=== PATIENT | male | born 1960 | race Caucasian/White ===

== ENCOUNTER 2023-06-28 10:28 | Inpatient (IN) | payer OTHER, SELFPAY ==
[2023-06-28] VITALS (44 sets, daily range): BP systolic 94–140; BP diastolic 46–107; PULSE 75–141; RESP 17–48; TEMP 36.6–37.7; O2SAT 94–100; BMI 31.0
--- NOTE | ~2023-06-28 | US_ITS ---
EXAMINATION: US right upper quadrant DATE: 06/30/2023 08:58 INDICATION: Cholelithiasis. TECHNIQUE: Multiple grayscale and Doppler ultrasound images of the abdomen were obtained. COMPARISON: CT abdomen and pelvis 06/29/2023 FINDINGS: The visualized portions of the head, body, and tail of the pancreas are normal. The liver i s normal without focal lesion. There is normal flow in main portal vein. The gallbladder is normal in size and contains gallstones. Gallbladder wall thickening is noted. There was no sonographic Roldan sign. The common duct is normal and measures 2 mm. IMPRESSION: 1. Cholelithiasis. Gallbladder wall thickening is likely secondary to interstitial edema. Reviewed, dictated and finalized at location A. CHAIN PULLER IMPRESSION: 1. Cholelithiasis. Gallbladder wall thickening is likely secondary to interstit ial edema.
--- NOTE | ~2023-06-28 | XR_ITS ---
EXAMINATION: XR chest 1V portable INDICATION: Tachycardia and cough TECHNIQUE: Portable AP chest at 1050 hours COMPARISON: None available FINDINGS: There are airspace opacities of the mid lung zones and right lung base. No pleural effusion or pneumothorax. The cardiomediastinal silhouette is normal for technique. IMPRESSION: 1. Airspace opacities of the mid lung zones and right lung base, likely pneumonia. Reviewed, dictated and finalized at location B. RDS ADMINISTRATOR IMPRESSION: 1. Airspace opacities of the mid lung zones and right lung base, likely pneumon ia.
--- NOTE | ~2023-06-28 | CT_ITS ---
EXAMINATION: CT abdomen pelvis w con DATE: 06/29/2023 20:14 INDICATION: Pancytopenia hepatosplenomegaly TECHNIQUE: Computed tomography (CT) of the abdomen and pelvis was performed with intravenous contrast . Automated exposure control and iterative reconstruction technique were employed. The dose-length pr oduct was 754.85 mGy-cm. COMPARISON: None. FINDINGS: Lower thorax: Similar centrilobular opacities, small right pleural effusion, and trace left pleural e ffusion Liver: Mildly enlarged. Biliary/Gallbladder: Cholelithiasis.. Subtle wall thickening/inflammation and mucosal hyperemia. No b ile duct dilation. Pancreas: No mass or duct dilation. Spleen: Normal. Adrenals:No mass. Kidneys: Mild bilateral perinephric stranding. Left upper and lower pole scar. 11 mm indeterminate de nsity left upper pole lesion. Simple right midpole cyst. Scattered bilateral subcentimeter hypodensit ies, too small to characterize but also likely represent cysts. No obstructing calcification. GI tract: No small or large bowel dilation. Surgically absent appendix Mesentery/Peritoneum: No ascites, mass, or free air. Retroperitoneum: No mass. Atherosclerotic abdominal aortic and/or arterial calcifications. Pelvis: Pelvic organs are within normal limits. Soft Tissues: Soft tissues and body wall unremarkable. Bones: No acute osseous finding. IMPRESSION: Mild hepatomegaly. Possible mild gallbladder wall edema/inflammation, with cholelithiasis. Correlate with right upper qu adrant pain and biliary labs. Consider right upper quadrant ultrasound. Indeterminate 11 mm left upper pole renal lesion, recommend timely outpatient MRI or CT without and w ith contrast for further evaluation. Reviewed, dictated and finalized at location K. T DESIGNER IMPRESSION: Mild hepatomegaly. Possible mild gallbladder wall edema/inflammation, with cholelithiasis. Correla te with right upper quadrant pain and biliary labs. Consider right upper quadra nt ultrasound. Indeterminate 11 mm left upper pole renal lesion, recommend timely outpatient M RI or CT without and with contrast for further evaluation.
--- NOTE | ~2023-06-28 | XR_ITS ---
EXAMINATION: XR chest 1V portable DATE: 06/30/2023 13:31 INDICATION: Hypoxia. TECHNIQUE: A single frontal view of the chest was obtained. COMPARISON: Chest single view 06/28/2023, CT abdomen and pelvis 06/29/2023, chest CT 06/28/2023 FINDINGS: There are patchy airspace opacities and nodules in all lung zones, worst in right lower gallo g zone. No pleural effusion or pneumothorax. The heart size is normal. IMPRESSION: 1. Stable diffuse lung disease, consistent with pneumonia. Reviewed, dictated and finalized at location A. MOTIVE DESIGN LAYOUT DRAFTER
--- NOTE | ~2023-06-28 | CT_ITS ---
EXAMINATION: CTA chest PE protocol DATE: 06/28/2023 23:24 INDICATION: tachycardia, elevated d dimer TECHNIQUE: Computed tomography angiography (CTA) of the chest was performed with 100 mL Omnipaque-350 intravenous contrast timed to evaluate the pulmonary arteries. Coronal maximum intensity projection 3D-reconstructions were created by the technologist. The dose-length product (DLP) was 454.52 mGy-cm. Automated exposure control and iterative reconstruction technique were employed. COMPARISON: X-ray chest, same date. FINDINGS: Lung parenchyma and airways: Considerable motion artifact. Emphysematous change. Peripheral reticulat ion. Peribronchovascular and peripheral areas of groundglass and consolidative opacities, many of whi ch are nodular/acinar in appearance, in all lobes, much more pronounced in the right upper and right lower lobes. The airways are clear. Pleura: Trace left and small right pleural fluid collections. Thoracic inlet, axillae and chest wall: Unremarkable. Thoracic aorta: Normal. Mediastinum: Enlarged right hilar and mediastinal lymph nodes. Calcified subcarinal and hilar lymph n odes. Heart and pericardium: Mild enlargement. Coronary artery calcifications: Mild. Upper abdomen: Cholelithiasis, without inflammatory changes. Bones: No acute osseous finding. Pulmonary arteries: Study quality: Considerable motion artifact limits evaluation of the subsegmental and segmental pulmonary arteries. No central or interlobar pulmonary emboli detected. IMPRESSION: Limited evaluation of the segmental and subsegmental pulmonary arteries. No CT evidence of acute cent ral or interlobar pulmonary embolus. Pulmonary opacities likely represent infectious airways disease, most likely bronchopneumonia, althou gh endobronchial spread of mycobacteria can appear similarly. A component of aspiration could be pres ent in the appropriate clinical context. Small right and trace left pleural effusions. Right hilar and mediastinal lymphadenopathy. Reviewed, dictated and finalized at location K. OM HOME INSTALLER IMPRESSION: Limited evaluation of the segmental and subsegmental pulmonary arteries. No CT evidence of acute central or interlobar pulmonary embolus. Pulmonary opacities likely represent infectious airways disease, most likely br onchopneumonia, although endobronchial spread of mycobacteria can appear simila rly. A component of aspiration could be present in the appropriate clinical con text. Small right and trace left pleural effusions. Right hilar and mediastinal lymphadenopathy.
--- NOTE | ~2023-06-28 | US_ITS ---
EXAMINATION: US venous doppler [facility] DATE: 06/28/2023 20:55 INDICATION: bilateral lower extremity edema . TECHNIQUE: Grayscale images without and with compression and Doppler images of the bilateral lower ex tremity veins were obtained. COMPARISON: None FINDINGS: The right common femoral vein, profunda (deep) femoral vein, femoral vein, popliteal vein, peroneal v ein, posterior tibial veins, gastrocnemius vein, and greater saphenous vein are patent. The left common femoral vein, profunda (deep) femoral vein, femoral vein, popliteal vein, peroneal v ein, posterior tibial veins, gastrocnemius vein, and greater saphenous vein are patent. IMPRESSION: Patent bilateral lower extremity veins. No evidence of deep venous thrombosis. Reviewed, dictated and finalized at location K. K MAKING MACHINE OPERATOR
--- NOTE | ~2023-06-28 | US_ITS ---
EXAMINATION: US renal BI DATE: 06/30/2023 08:58 INDICATION: Kidney mass. TECHNIQUE: Multiple ultrasound grayscale images of the kidneys were obtained. COMPARISON: CT abdomen and pelvis 06/29/2023, chest CT 06/28/2023. FINDINGS: The right kidney measures 12.2 x 5.1 x 5.4 cm. The left kidney measures 12.1 x 6.7 x 5.3 cm. The kidn eys demonstrate normal parenchymal echogenicity. There are cysts in the kidneys measuring up to 15 mm on the right. There is no hydronephrosis. The bladder is normal. IMPRESSION: 1. Normal kidney sizes. No hydronephrosis. 2. Comparison of multiple CTs demonstrates nonenhancement of the 1.1 cm mass in left kidney upper carola e described on 06/29/2023, consistent with a hemorrhagic cyst. Reviewed, dictated and finalized at location A. ATORY GAME HUNTER IMPRESSION: 1. Normal kidney sizes. No hydronephrosis. 2. Comparison of multiple CTs demonstrates nonenhancement of the 1.1 cm mass in left kidney upper pole described on 06/29/2023, consistent with a hemorrhagic c yst.
--- NOTE | 2023-06-28 10:32 | ECG_ITS ---
Measurements Intervals [place] Rate: 142 P: VT: 0 QRS: -45 QRSD: 104 T: 48 QT: 301 QTc: 463 Interpretive Statements ATRIAL FIBRILLATION WITH RAPID VENTRICULAR RESPONSE INCOMPLETE RIGHT BUNDLE BRANCH BLOCK [90+ ms QRS DURATION, TERMINAL R IN V1/V2, 40+ ms S IN I/aVL/V4/V5/V6] LEFT ANTERIOR FASCICULAR BLOCK [QRS AXIS <= -45, QR IN I, RS IN II] POOR R-WAVE PROGRESSION ABNORMAL ECG NO PREVIOUS ECG AVAILABLE FOR COMPARISON Electronically Signed On 06-28-2023 18:24:03 PROCESS TRAINER by Eduardo Nielson M.D.
--- NOTE | 2023-06-28 11:03 | ED.ARRPALP ---
HPI - Arrhythmia/Palpitations General Chief Complaint: Arrhythmia/Palpitations Stated Complaint: FAST hr Time Seen by Provider: 06/28/23 10:42 History of Present Illness HPI narrative: 63-year-old male presents emergency department for evaluation of feeling poorly since Wednesday. Patient states he has no chest pain but does have chest pain with coughing. Patient presented to urgent care for evaluation and was found to be AFib with RVR, this is new onset. Patient presented to the emergency department from urgent care by private transport. Upon arrival to the emergency department patient is tired appearing and has a heart rate 140-160. Patient denies any prior history of PE DVT. Patient denies any prior history of MT, patient denies hypertension high cholesterol or diabetes. Patient does have arthritis and does take leflunomide and Vicodin. Related Data Home Medications Medication Instructions Recorded Confirmed hydrocodone 7.5 mg-acetaminophen 1 tablet PO Q6H PRN Pain 06/28/23 06/28/23 325 mg tablet leflunomide 10 mg tablet 10 mg PO DAILY 06/28/23 06/28/23 Allergies Allergy/AdvReac Type Severity Reaction Status Date / Time No Known Allergies Allergy Mild Verified 06/28/23 08:53 Review of Systems Review of Systems: All systems reviewed & are unremarkable except as noted in HPI and below PMFSH Past Medical History Medical History BMI 33.0-33.9,adult Family History Family History Father Family history of malignant neoplasm Family history of diabetes mellitus in first degree relative Grandparent Family history of coronary artery disease Social History Social History Smoking status: Former smoker Second hand tobacco smoke exposure: No Alcohol intake: never Substance use: never Substance use type: does not use Do You Feel Safe in your Home?: Yes Lack of Transportation: No Lack of Food: Never True Current Housing: I Have Housing Concerned About Future Housing: No Difficulty Paying Gas/Electric Bills: No Difficulty Paying for Meds: No Currently Unemployed: No Education: High School Diploma/GED Difficulty w/ Childcare or Family Care: No Spiritual care concerns: No Exam Narrative: APPEARANCE: Ill-appearing HEAD: normocephalic, atraumatic. EYES: PERRLA/EOMI, conjunctivae clear. NOSE: Normal no drainage EARS:TMS clear with good light reflex. THROAT: Pharynx clear, no exudate. NECK: Supple. No adenopathy, no masses. RESPIRATORY: Increased respiratory rate CARDIOVASCULAR: AFib with RVR ABDOMINAL: Soft, nontender, nondistended, normal bowel sounds MUSCULOSKELETAL: Moves all extremities. Strength/ROM intact, No edema, No calf tenderness. NEURO: Alert. Cranial nerves II through XII intact. Grossly intact SKIN: Warm, dry. Normal Color Course Course Emergency Course: Patient was admitted for AFib with RVR, elevated troponin and influenza a Vital Signs Vital signs: Vital Signs Temperature 98.3 F 06/28/23 10:46 Pulse Rate 140 H 06/28/23 10:46 Respiratory Rate 40 H 06/28/23 10:46 Blood Pressure 123/94 H 06/28/23 10:46 Pulse Oximetry 96 06/28/23 10:46 Temperature 98.3 F 06/28/23 10:46 Pulse Rate 95 06/28/23 18:01 Respiratory Rate 36 H 06/28/23 18:01 Blood Pressure 115/71 06/28/23 18:01 Pulse Oximetry 99 06/28/23 18:01 Oxygen Delivery Nasal Cannula 06/28/23 12:00 Oxygen Flow Rate 2 06/28/23 12:00 MDM - Arrhythmia/Palpitations MDM Narrative Medical decision making narrative: [age] old male present to the emergency department for evaluation of new onset AFib with RVR. Upon arrival emergency department patient's heart rate was in the 140s. Patient was started Cardizem drip and prior to starting Cardizem infusion patient did convert back to normal sinus rhythm.
[2023-06-28 11:04] LABS: Basophils Percent Auto 0.3 % (0.2-1.2); Hematocrit 29.4 % (42.0-52.0); Hemoglobin 9.6 g/dL (14.0-18.0); Immature Granulocyte Absolute 0.02 K/mm3 (0.00-0.031); Immature Granulocyte Percent A 0.6 % (0-0.5); Lymphocytes Percent Auto 22.2 % (18.3-44.2); Mean Corpuscular HGB Conc 32.7 g/dl (32-36); Mean Corpuscular Hemoglobin 29.6 pg (26-34); Mean Corpuscular Volume 90.7 fl (80-100); Monocytes Absolute Auto 0.2 K/mm3 (0.1-0.6); Monocytes Percent Auto 5.3 % (2.6-8.5); Neutrophils Absolute Auto 2.6 K/mm3 (1.3-6.7); Neutrophils Percent Auto 71.6 % (45.5-73.1); Platelet Count Result 67 k/mm3 (150-375); Red Blood Count 3.24 M/mm3 (4.6-6.20); Red Cell Distribution Width 18.5 % (11.5-14.5); White Blood Count 3.6 K/mm3 (4.5-10.0)
[2023-06-28 11:08] LABS: Alanine Aminotransferase 19 U/L (6-50); Albumin Level 3.8 g/dL (3.5-5.1); Alkaline Phosphatase 109 U/L (38-126); Anion Gap 7 mmol/L (8-16); Aspartate Amino Transferase 37 U/L (17-59); Bilirubin,Total 0.9 mg/dL (0.2-1.3); Blood Urea Nitrogen 15 mg/dL (9-20); Calcium 8.8 mg/dL (8.4-10.2); Carbon Dioxide 22 mmol/L (22-30); Chloride 104 mmol/L (98-107); Estimated CRCL calculation 103 ml/min; Estimated Glomerular Filt Rate > 60; Glucose 106 mg/dL (65-110); Lipase 57 U/L (23-300); Potassium 3.3 mmol/L (3.4-5.0); Sodium 133 mmol/L (137-145)
[2023-06-28] MEDS: dilTIAZem 100 MG/100 ML 100 MG/100 ML BAG IV CONT (11:11)
[2023-06-28] MEDS: dilTIAZem HCl INJ 25 MG/5 ML VIAL 10 MG IV PUSH (11:11)
[2023-06-28 11:14] LABS: INR 1.1
[2023-06-28 11:15] LABS: Partial Thromboplastin Time 35.8 SECONDS (22.3-36.8)
[2023-06-28] MEDS: ASPIRIN 81 MG CHEWABLE TABLET 324 MG PO (11:16)
[2023-06-28 11:21] LABS: Platelet Estimate Decreased (Adequate); Schistocytes None Seen (NORMAL)
[2023-06-28 11:22] LABS: Tear Drop Cells 1+ (NORMAL)
[2023-06-28 11:32] LABS: Troponin I 0.085 ng/mL (0.000-0.034)
[2023-06-28] MEDS: POTASSIUM CHLORIDE 20 MEQ PACKET (FOR LIQUID) 40 MEQ PO (11:45)
[2023-06-28 11:52] LABS: Influenza A QL RT-PCR Positive (Negative); Influenza B QL RT-PCR Negative (Negative); RSV RNA, RT-PCR Negative (Negative); SARS-CoV-2 RNA PCR Negative (Negative)
[2023-06-28 11:53] LABS: Magnesium 1.9 mg/dL (1.6-2.3)
[2023-06-28] MEDS: LEVALBUTEROL NEB 1.25 MG/3 ML INHALATION ×2 (12:35→19:36)
--- NOTE | 2023-06-28 12:51 | ECG_ITS ---
Measurements Intervals [place] Rate: 86 P: 61 NC: 165 QRS: -40 QRSD: 97 T: 28 QT: 375 QTc: 451 Interpretive Statements SINUS RHYTHM WITH PACS LEFT AXIS DEVIATION POOR R-WAVE PROGRESSION NONSPECIFIC T-WAVE ABNORMALITY ABNORMAL ECG COMPARED TO ECG 06/28/2023 10:43:33 SINUS RHYTHM REPLACES ATRIAL FIBRILLATION Electronically Signed On 06-28-2023 18:30:58 MAPPING ANALYST by Eduardo Nielson M.D.
[2023-06-28 13:18] LABS: NT Pro B Type Natriuretic Pept 10100 pg/mL (19.9-100)
[2023-06-28 14:03] LABS: Troponin I 0.069 ng/mL (0.000-0.034)
--- NOTE | 2023-06-28 14:29 | PC.NURSE ---
pt takes 3 ibuprofen every morning but is unsure dosage for med reconciliation. pt also takes vitamin b12, E, and C daily
--- NOTE | 2023-06-28 15:21 | PM.IMHP ---
H&P: HPI History of Present Illness Date/Time: 06/28/23 16:45 Chief Complaint: Rapid heart rate. Narrative: This is a very pleasant 63-year-old male with rheumatoid arthritis on leflunomide who presented to the emergency department from Dr. Britt is office for evaluation of a rapid heart rate. The patient provides the following history. He has not been feeling well since Wednesday with generalized malaise, fatigue, nonproductive cough, body aches, and loose stools. He made appointment with his doctor today due to ongoing symptoms at which time he was found to be in atrial fibrillation with rapid ventricular response which is a new diagnosis for him. He has some mild chest discomfort with coughing but he has not had exertional chest pain or pleuritic pain. He has no sensations of racing heart, palpitations, or fluttering. On arrival to the emergency department his heart rate was between 140 to 160. He was given a diltiazem bolus and was ultimately started on a diltiazem drip but has since converted back to a normal sinus rhythm. Labs were significant for a WBC count of 3.6, RBC count 3.24, hemoglobin 9.6, hematocrit 29.4%, platelets 67, D-dimer 3.78, sodium 133, potassium 3.3, BUN 15, creatinine 0.70, lactic acid 1.6, proBNP 32288, troponin 0.085. He tested positive for influenza A. Chest x-ray showed airspace opacities of the mid lung zones and right lung base, likely pneumonia. Initial EKG showed atrial fibrillation with rapid ventricular response, incomplete right bundle-branch block, and left anterior fascicular block with poor R-wave progression. He was given a dose of azithromycin and ceftriaxone and he is being admitted in this setting for treatment of pneumonia, influenza, and workup of new onset atrial fibrillation. Review of Systems Review of Systems: Twelve systems were reviewed. Regarding his anemia, he has been told that he was anemic in the past. He is not on any iron supplementation. He has not noticed any blood in the stool or dark stools. Weight has remained stable. No personal or family history of blood dyscrasia. Except as documented, all other systems were reviewed and are negative. [facility] Past Medical History Medical History (Updated 06/28/23 @ 23:04 by Jaclyn Gomez PA-C) Chronic pain syndrome Related to RA. Immunocompromised state due to drug therapy Rheumatoid arthritis Surgical History Surgical History (Updated 06/28/23 @ 22:59 by Jaclyn Gomez PA-C) History of appendectomy Family History Family History Father Family history of malignant neoplasm Family history of diabetes mellitus in first degree relative Colon cancer Grandparent Family history of coronary artery disease Mother Acute myocardial infarction History of blood clots Grandparent Acute myocardial infarction Mother No problems noted. Sibling History of blood clots Sibling History of blood clots Sibling History of blood clots Social History Social History (Updated 06/28/23 @ 23:00 by Jaclyn Gomez PA-C) Social History: Surrogate medical decision maker: Isaura Palacios, spouse. Code status: Full code. Smoking packs per day: 2 Smoking cigarettes per day: 40.0 Years smoked: 35 Smoking pack-years: 70.00 Smoking status: Former smoker Second hand tobacco smoke exposure: No Alcohol intake: never Substance use: never Substance use type: does not use Do You Feel Safe in your Home?: Yes Lack of Transportation: No Lack of Food: Never True Current Housing: I Have Housing Concerned About Future Housing: No Difficulty Paying Gas/Electric Bills: No Difficulty Paying for Meds: No Currently Unemployed: No Education: High School Diploma/GED Difficulty w/ Childcare or Family Care: No Additional living arrangements comments: Lives with spouse and family in [place]. Additional occupation/education comments: [employer]
--- NOTE | 2023-06-28 16:55 | ECG_ITS ---
Measurements Intervals [place] Rate: 97 P: 37 WV: 169 QRS: -53 QRSD: 98 T: 35 QT: 349 QTc: 443 Interpretive Statements SINUS RHYTHM WITH OCCASIONAL SUPRAVENTRICULAR PREMATURE COMPLEXES NONSPECIFIC T-WAVE ABNORMALITY LEFT ANTERIOR FASCICULAR BLOCK [QRS AXIS <= -45, QR IN I, RS IN II] POOR R-WAVE PROGRESSION COMPARED TO ECG 06/28/2023 13:01:54 NO SIGNIFICANT DIFFERENCE Electronically Signed On 06-28-2023 18:41:42 STORAGE SPECIALIST by Eduardo Nielson M.D.
[2023-06-28 17:22] LABS: Troponin I 0.058 ng/mL (0.000-0.034)
--- NOTE | 2023-06-28 18:27 | ADMGEN ---
Addendum entered by Kaela Pettit RN 06/30/23 15:55: This patient, Taiwo Palacios Sr., was admitted to Bed 213. Patient/family oriented to hospital policies and general routines including ID bracelet, bed and alarms, visiting hours, pain management, procedures, bathroom and other care routines, personal items, smoking policy, room service/diet, and visiting hours. Information on how to activate the Rapid Response Team has been discussed. Patient/Family are encouraged to report perceived risks to care and to ask questions if they do not understand what they are told or what they should do. Original Note: This patient, Taiwo Palacios Sr., was admitted to Virtual Bed IMU-2. Patient/family oriented to hospital policies and general routines including ID bracelet, bed and alarms, visiting hours, pain management, procedures, bathroom and other care routines, personal items, smoking policy, room service/diet, and visiting hours. Information on how to activate the Rapid Response Team has been discussed. Patient/Family are encouraged to report perceived risks to care and to ask questions if they do not understand what they are told or what they should do.
[2023-06-28 19:52] LABS: Immature Reticulocyte Fraction 6.3 % (3.0-15.9); Reticulocyte Hemoglobin Conten 26.8 pg (28.2-35.7); Reticulocyte Percent 0.84 % (0.7-4.3); Reticulocytes Absolute 0.02 M/mm3 (0.02-0.1)
[2023-06-28 20:00] LABS: Lactic Acid Reflex 1.6 mmol/L (0.7-2.0)
[2023-06-28 20:03] LABS: CRP 8.4 mg/dL (<1.0)
[2023-06-28 20:21] LABS: Iron 38 ug/dL (49-181)
[2023-06-28 20:30] LABS: D Dimer 3.78 ug/mL (<0.48); Percent Iron Saturation 18 % (20-50)
[2023-06-28] MEDS: VANCOMYCIN 1,250 MG/NS 250 ML 1,250 MG/250 ML BAG 166.67 MG IVPB ×2 (21:11→22:05)
[2023-06-28] MEDS: AZITHROMYCIN 500 MG/NS 250 ML 500 MG/250 ML BAG 250 MG IVPB (21:12)
[2023-06-28] MEDS: FUROSEMIDE INJ 40 MG/4 ML VIAL 20 MG IV PUSH (21:12)
[2023-06-28] MEDS: cefTRIAXone 2 GM/NS 100 ML 2 GM/100 ML BAG IVPB (21:13)
[2023-06-28 21:26] LABS: Folic Acid 14.6 ng/mL (2.76->20); Vitamin B12 > 1000.0 pg/mL (239-931)
[2023-06-28 23:14] LABS: Anion Gap 9 mmol/L (8-16); Blood Urea Nitrogen 18 mg/dL (9-20); Calcium 8.7 mg/dL (8.4-10.2); Carbon Dioxide 19 mmol/L (22-30); Chloride 104 mmol/L (98-107); Estimated CRCL calculation 120 ml/min; Estimated Glomerular Filt Rate > 60; Glucose 101 mg/dL (65-110); Potassium 3.3 mmol/L (3.4-5.0); Sodium 132 mmol/L (137-145)
[2023-06-28] MEDS: OSELTAMIVIR PHOSPHATE 75 MG CAPSULE PO (23:59)
[2023-06-29] VITALS (28 sets, daily range): BP systolic 108–141; BP diastolic 61–77; PULSE 73–110; RESP 18–44; TEMP 36.6–37.4; O2SAT 92–99
--- NOTE | 2023-06-29 | ECHO_ITS ---
Patient Info Name: Taiwo Palacios Age: 63 years : 1960 Gender: Male Ht: 67 in Wt: 220 lbs BSA: 2.21 m2 HR: 87 bpm BP: 108 / 57 mmHg Technical Quality: Fair Exam Date: 06/29/2023 9:51 AM Exam Location: Echo Lab Patient Status: Outpatient Admit Date: 06/28/2023 Staff Ordering Physician: Jaclyn Gomez PA-C Relief Mate: Judi James RDCS Attending Provider: Cecile Rodriges MD Referring Physician: Patricia REYES; Exam Type: CA echo dop color flow w con Study Info Indications - AFIB/RVR, Elevated tropnin Complete two-dimensional, color flow and Doppler transthoracic echocardiogram is performed with contrast to opacify the left ventricle and to improve the deliniation of the left ventricle endocardial borders. Contrast/Agitated Saline Contrast/Ag. Saline: Definity Amount: 2.00 ml Administered By: Judi James RDCS Existing IV Access: Yes IV Access Condition: patent with no signs of infiltration Summary 1. Definity contrast administered improved wall motion interpretation. 2. Left ventricular chamber dimension is severely enlarged. 3. Left ventricular systolic function is severely globally reduced, estimated at 30-35%. 4. The left ventricular diastolic function is abnormal. 5. E/e' 13 is mildly elevated. 6. Left atrial chamber dimension is severely enlarged. 7. There is mild mitral valve regurgitation. 8. There is trace tricuspid valve regurgitation. 9. No pulmonary hypertension, estimated pulmonary arterial systolic pressure is 28 mmHg. Left Ventricle E/e' 13 is mildly elevated. Definity contrast administered improved wall motion interpretation. Left ventricular chamber dimension is severely enlarged. Left ventricular systolic function is severely globally reduced, estimated at 30-35%. The left ventricular diastolic function is abnormal. Right Ventricle Right ventricular systolic function is normal and with normal TAPSE 1.9 cm. Right ventricular chamber dimension is normal. Left Atria Left atrial chamber dimension is severely enlarged. Right Atria Right atrial chamber dimension is normal. Aortic Valve The aortic valve is trileaflet. There is no aortic valve stenosis. There is no aortic valve regurgitation. Pulmonic Valve There is no pulmonic regurgitation. Mitral Valve There is no mitral valve stenosis. There is mild mitral valve regurgitation. Tricuspid Valve There is trace tricuspid valve regurgitation. No pulmonary hypertension, estimated pulmonary arterial systolic pressure is 28 mmHg. Pericardium/Pleural There is no pericardial effusion. Inferior Vena Cava Normal inferior vena cava with >50% collapse upon inspiration consistent with normal right atrial pressure, 5 mmHg. Aorta The aortic root size at the sinus of Valsalva is normal. Left Ventricular Outflow Tract Name Value Normal LVOT 2D LVOT Diameter 2.13 cm LVOT Doppler LVOT Peak Gradient 4 mmHg LVOT Mean Gradient 2 mmHg LVOT VTI 13.69 cm LVOT VTI/AV VTI Ratio 0.76 LVOT Stroke Volume 48.97 ml
[2023-06-29] MEDS: LEVALBUTEROL NEB 1.25 MG/3 ML INHALATION ×5 (01:19→23:34)
[2023-06-29] MEDS: POTASSIUM CHLORIDE 20 MEQ ER TABLET 40 MEQ PO ×2 (02:56→14:29)
[2023-06-29 05:05] LABS: Estimated CRCL calculation 120 ml/min; Estimated Glomerular Filt Rate > 60
[2023-06-29] MEDS: ASPIRIN 81 MG CHEWABLE TABLET PO (08:36)
[2023-06-29] MEDS: OSELTAMIVIR PHOSPHATE 75 MG CAPSULE PO ×2 (08:36→21:59)
[2023-06-29] MEDS: VANCOMYCIN 1,500 MG/NS 500 ML 1,500 MG/500 ML BAG 250 MG IVPB ×2 (08:37→21:59)
--- NOTE | 2023-06-29 08:40 | PM.IMPN ---
Progress Note: A&P Assessment and Plan (1) Atrial fibrillation with rapid ventricular response: Code(s): I48.91 - Unspecified atrial fibrillation Status: Acute (2) Influenza A: Code(s): J10.1 - Influenza due to other identified influenza virus with other respiratory manifestations Status: Acute (3) Pneumonia: Code(s): J18.9 - Pneumonia, unspecified organism Status: Acute (4) Hypoxia: Code(s): R09.02 - Hypoxemia Status: Acute (5) Pancytopenia: Code(s): D61.818 - Other pancytopenia Status: Acute (6) Elevated troponin: Code(s): R79.89 - Other specified abnormal findings of blood chemistry Status: Acute (7) Rheumatoid arthritis: Qualifiers: Rheumatoid arthritis location: unspecified site Rheumatoid factor presence: with rheumatoid factor Qualified Code(s): M05.9 - Rheumatoid arthritis with rheumatoid factor, unspecified Code(s): M06.9 - Rheumatoid arthritis, unspecified Status: Acute (8) Immunocompromised state due to drug therapy: Code(s): D84.821 - Immunodeficiency due to drugs; Z79.899 - Other nursing home (current) drug therapy Status: Acute Plan A 63-year-old male with rheumatoid arthritis on leflunomide presented to the ED PCP's office rapid heart rate. He had not been feeling well since Wednesday with generalized malaise fatigue nonproductive cough body aches and loose stool. He was found to be in AFib with RVR which is a new diagnosis for him he also reports mild chest discomfort with coughing but has not had any exertional chest pain or pleuritic pain. On arrival to the ED is heart rate was anywhere between 140-160. He was given a bolus of diltiazem and was ultimately started on diltiazem drip. Since then however he had converted back to normal sinus rhythm. ED evaluation showed WBC count of 3.6 RBC count of 3.24 hemoglobin of 9.6 platelet of 67 D-dimer of 3.78 potassium is low at 3.3 lactate normal proBNP 10,000 troponin was mildly elevated at 0.085. He tested positive for influenza A. Chest x-ray showed airspace opacities of the mid lung zones and right lung base likely pneumonia. Initial EKG showed atrial fibrillation with rapid ventricular response incomplete right bundle branch block and left anterior fascicular block with poor R-wave progression. Has been started on azithromycin ceftriaxone was treated for pneumonia influenza and workup for new onset atrial fibrillation. Serial troponin 0.085-0.069 remains flat. Venous duplex with patent bilateral lower extremity veins no evidence of DVT. Sputum culture to be obtained Legionella pneumococcal and mycoplasma MRSA swab pending. Hold leflunomide for now. He was also mildly hypoxic in the ED requiring oxygen supplementation via nasal cannula. CTA ordered because of elevated D-dimer showed no evidence of acute central PE, pulmonary opacities likely represent infectious airway disease most likely bronchopneumonia although endobronchial spread of mycobacteria can appear similarly. A component of aspiration could be represent the appropriate clinical context. Right hilar and mediastinal lymphadenopathy echo has been ordered and pending. He has pancytopenia likely related (might possibly worsened due to viral illness. Hematology has been consulted. Iron studies B12 and folate have been ordered. Stool for occult blood has been ordered. Ferritin came back elevated at 1320 with low TIBC and% desaturation CRP elevated at 8.4 TSH normal procalcitonin is 1. Replace potassium and magnesium Add Mucinex and bronchodilator vancomycin can be discontinued if MRSA swab is negative will continue on azithromycin and ceftriaxone DVT prophylaxis SCDs Influenza A started on Tamiflu With regard atrial fibrillation with the new onset his story back to sinus rhythm likely due to underlying infectious process. His chads Vasc score is low at 0. Will continue on aspirin. Not on any rate control medica
[2023-06-29 09:23] LABS: Basophils Percent Auto 0.4 % (0.2-1.2); Hematocrit 23.6 % (42.0-52.0); Hemoglobin 7.8 g/dL (14.0-18.0); Immature Granulocyte Absolute 0.01 K/mm3 (0.00-0.031); Immature Granulocyte Percent A 0.4 % (0-0.5); Immature Platelet Fraction Pct 7.7 % (0.9-11.2); Lymphocytes Absolute Auto 0.75 K/mm3 (0.9-3.2); Lymphocytes Percent Auto 31.6 % (18.3-44.2); Mean Corpuscular HGB Conc 33.1 g/dl (32-36); Mean Corpuscular Hemoglobin 29.7 pg (26-34); Mean Corpuscular Volume 89.7 fl (80-100); Monocytes Absolute Auto 0.1 K/mm3 (0.1-0.6); Monocytes Percent Auto 5.9 % (2.6-8.5); Neutrophils Absolute Auto 1.5 K/mm3 (1.3-6.7); Neutrophils Percent Auto 61.7 % (45.5-73.1); Platelet Count Result 54 k/mm3 (150-375); Red Blood Count 2.63 M/mm3 (4.6-6.20); Red Cell Distribution Width 18.8 % (11.5-14.5); White Blood Count 2.4 K/mm3 (4.5-10.0)
[2023-06-29 09:33] LABS: Alanine Aminotransferase 17 U/L (6-50); Albumin Level 3.1 g/dL (3.5-5.1); Alkaline Phosphatase 78 U/L (38-126); Anion Gap 7 mmol/L (8-16); Aspartate Amino Transferase 36 U/L (17-59); Bilirubin,Total 0.6 mg/dL (0.2-1.3); Blood Urea Nitrogen 14 mg/dL (9-20); Calcium 8.3 mg/dL (8.4-10.2); Carbon Dioxide 20 mmol/L (22-30); Chloride 106 mmol/L (98-107); Estimated CRCL calculation 120 ml/min; Estimated Glomerular Filt Rate > 60; Glucose 103 mg/dL (65-110); Magnesium 1.8 mg/dL (1.6-2.3); Potassium 3.3 mmol/L (3.4-5.0); Sodium 133 mmol/L (137-145)
--- NOTE | 2023-06-29 09:35 | PDONCCN ---
HPI - Date of Consult Date/Time: 06/29/23 18:17 <Kaleb Tomlin - 06/29/23 18:20> 06/29/23 09:35 <Stefania Nguyen - 06/29/23 09:44> Requesting Physician: Cecile Rodriges MD <Kaleb Tomlin - 06/29/23 18:20> Cecile Rodriges MD <Stefania Nguyen - 06/29/23 09:44> Primary Care Provider: Yaya Britt MD <Kaleb Tomlin - 06/29/23 18:20> Yaya Britt MD <Stefania Nguyen - 06/29/23 09:44> - Consult Narrative Reason for consult: Pancytopenia <Stefania Nguyen - 06/29/23 09:44> Narrative: Taiwo Palacios Sr. is a 63 year old male <Kaleb Tomlin - 06/29/23 18:20> Taiwo Palacios Sr. is a 63 year old male with a past medical history of rheumatoid arthritis. He is taking Leflunomide for the last [address] Nataly Seymour at [facility]. He has been admitted for rapid HR from his PCP office. He reports feeling fatigued, cough, and body aches. He has tested + for Flu A. He also has underlying PNA. He is being treated with Azithro, Ceftriaxone, and Vanco for infection and immunosuppression. He reports knowledge of anemia. He does not take iron supplements. He has never had a colonoscopy. He gets blood work by his [employer] every 3 months. I am unable to see those results from previous studies to compare. 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 He reports a past smoking history of 2 pack/day and quit in 2017. He reports fatigue, cough, and shortness of breath. Labs today are notable for WBC 3.6, Hgb 9.6, Hct 29, Plt 67,000. Iron 38, % sat 18, Ferritin elevated at 1329 and B12>1000. <Stefania Nguyen - 06/29/23 09:44> Review of Systems - Review of Systems All systems reviewed & are unremarkable except as noted in HPI and bel <Stefania Nguyen 06/29/23 09:44> [facility] Medical History: Medical History (Last Updated 06/28/23 @ 23:03 by Jaclyn Gomez PA-C) Chronic pain syndrome Related to RA. Immunocompromised state due to drug therapy Rheumatoid arthritis <Kaleb Tomlin. - 06/29/23 18:20> Medical History (Last Updated 06/28/23 @ 23:03 by Jaclyn Gomez PA-C) Chronic pain syndrome Related to RA. Immunocompromised state due to drug therapy Rheumatoid arthritis <Earl Nguyenne - 06/29/23 09:44> Surgical History: Surgical History (Last Updated 06/28/23 @ 22:59 by Jaclyn Gomez PA-C) History of appendectomy <Kaleb Tomlin. - 06/29/23 18:20> Surgical History (Last Updated 06/28/23 @ 22:59 by Jaclyn Gomez PA-C) History of appendectomy <WoodrowStefania sanon - 06/29/23 09:44> Family History: Family History (Last Reviewed 06/28/23 @ 22:59 by Jaclyn Gomez PA-C) Father Family history of malignant neoplasm Family history of diabetes mellitus in first degree relative Colon cancer Grandparent Family history of coronary artery disease Mother Acute myocardial infarction History of blood clots Grandparent Acute myocardial infarction Mother No problems noted. Sibling History of blood clots Sibling History of blood clots Sibling History of blood clots <Kaleb Tomlin. - 06/29/23 18:20> Family History (Last Reviewed 06/28/23 @ 22:59 by Jaclyn Gomez PA-C) Father Family history of malignant neoplasm Family history of diabetes mellitus in first degree relative Colon cancer Grandparent Family history of coronary artery disease Mother Acute myocardial infarction History of blood clots Grandparent Acute myocardial infarction Mother No problems noted. Sibling History of blood clots Sibling History of blood clots Sibling History of blood clots <Earl Nguyenne - 06/29/23 09:44> - Social History Social History: Social History (Last Updated 06/28/23 @ 23:00 by Jaclyn Gomez PA-C) Alcohol Use: Alcohol intake: never Substance Use: Substance use: never Substance use type: does
[2023-06-29 10:03] LABS: Platelet Estimate Decreased (Adequate)
[2023-06-29 10:04] LABS: Hypochromasia 1+ (NORMAL); Schistocytes Rare (NORMAL)
[2023-06-29] MEDS: PERFLUTREN LIPID MICROSPHERES 1.5 ML VIAL DILUTED TO 10 ML TOTAL VOLUME IV PUSH (10:15)
[2023-06-29 10:17] LABS: MRSA (PCR) NOT DETECTED (NOT DETECTE)
[2023-06-29] MEDS: IRON SUCROSE COMPLEX 500 MG in SODIUM CHLORIDE 0.9% IV 250 ML 79 MG IVPB (10:50)
--- NOTE | 2023-06-29 10:59 | IVDEFINITY ---
Prior to administration of IV Definity the patient was educated on the risks and benefits of the imaging enhancing agent including potential adverse side effects. The patient verbalized understanding. Allergies were verified. No exclusion criteria were identified and at least one of the following inclusion criteria were met: 1) physician request, 2) patient technically difficult to image (per the [place] [employer] guidelines of two or more segments not discernable within the apical view), or 3) questionable left ventricular function. ?
[2023-06-29] MEDS: IPRATROPIUM BR 0.02% INH SOLN 0.5 MG/2.5 ML VIAL INHALATION ×3 (11:24→23:34)
[2023-06-29] MEDS: guaiFENesin 12 HR 600 MG TABCR 1200 MG PO ×2 (11:49→21:59)
[2023-06-29 13:06] LABS: IFOB Positive Control Positive; Immunochemical Fecal Occult Bl Negative (N)
[2023-06-29 13:08] LABS: Toxigenic C. Diff NEGATIVE (NEGATIVE)
[2023-06-29] MEDS: METOPROLOL TARTRATE 12.5 MG TABLET PO ×2 (14:28→21:59)
[2023-06-29] MEDS: FERROUS SULFATE 325 MG TABLET DR PO (16:53)
[2023-06-29] MEDS: cefTRIAXone 2 GM/NS 100 ML 2 GM/100 ML BAG IVPB (18:22)
[2023-06-29] MEDS: AZITHROMYCIN 500 MG/NS 250 ML 500 MG/250 ML BAG 250 MG IVPB (18:23)
[2023-06-30] VITALS (22 sets, daily range): BP systolic 103–126; BP diastolic 69–81; PULSE 70–150; RESP 16–44; TEMP 36.7–37.6; O2SAT 92–96
[2023-06-30] MEDS: LEVALBUTEROL NEB 1.25 MG/3 ML INHALATION ×3 (04:13→20:16)
[2023-06-30] MEDS: IPRATROPIUM BR 0.02% INH SOLN 0.5 MG/2.5 ML VIAL INHALATION ×3 (04:13→20:15)
[2023-06-30 08:10] LABS: Basophils Percent Auto 0.8 % (0.2-1.2); Hematocrit 25.1 % (42.0-52.0); Immature Granulocyte Absolute 0.02 K/mm3 (0.00-0.031); Immature Granulocyte Percent A 0.8 % (0-0.5); Immature Platelet Fraction Pct 8.4 % (0.9-11.2); Lymphocytes Absolute Auto 0.91 K/mm3 (0.9-3.2); Lymphocytes Percent Auto 38.2 % (18.3-44.2); Mean Corpuscular HGB Conc 31.9 g/dl (32-36); Mean Corpuscular Hemoglobin 29.4 pg (26-34); Mean Corpuscular Volume 92.3 fl (80-100); Monocytes Absolute Auto 0.2 K/mm3 (0.1-0.6); Monocytes Percent Auto 6.7 % (2.6-8.5); Neutrophils Absolute Auto 1.3 K/mm3 (1.3-6.7); Neutrophils Percent Auto 53.5 % (45.5-73.1); Platelet Count Result 50 k/mm3 (150-375); Red Blood Count 2.72 M/mm3 (4.6-6.20); Red Cell Distribution Width 18.6 % (11.5-14.5); White Blood Count 2.4 K/mm3 (4.5-10.0)
[2023-06-30 08:19] LABS: Alanine Aminotransferase 23 U/L (6-50); Albumin Level 3.4 g/dL (3.5-5.1); Alkaline Phosphatase 84 U/L (38-126); Anion Gap 3 mmol/L (8-16); Aspartate Amino Transferase 44 U/L (17-59); Bilirubin,Total 0.7 mg/dL (0.2-1.3); Blood Urea Nitrogen 10 mg/dL (9-20); CRP 5.6 mg/dL (<1.0); Calcium 8.7 mg/dL (8.4-10.2); Carbon Dioxide 25 mmol/L (22-30); Chloride 104 mmol/L (98-107); Estimated CRCL calculation 121 ml/min; Estimated Glomerular Filt Rate > 60; Glucose 96 mg/dL (65-110); Lipase 72 U/L (23-300); Magnesium 1.8 mg/dL (1.6-2.3); Potassium 3.8 mmol/L (3.4-5.0); Sodium 132 mmol/L (137-145)
[2023-06-30 08:39] LABS: Vancomycin Trough 8.6 ug/mL (10.0-20.0)
[2023-06-30 08:42] LABS: Anisocytosis 1+ (NORMAL); Hypochromasia 1+ (NORMAL); Microcytosis 1+ (NORMAL); Platelet Estimate Decreased (Adequate); Schistocytes None Seen (NORMAL)
[2023-06-30 08:52] LABS: Procalcitonin 0.5 ng/mL
[2023-06-30] MEDS: METOPROLOL TARTRATE 12.5 MG TABLET PO (09:04)
[2023-06-30] MEDS: guaiFENesin 12 HR 600 MG TABCR 1200 MG PO ×2 (09:04→20:35)
[2023-06-30] MEDS: OSELTAMIVIR PHOSPHATE 75 MG CAPSULE PO ×2 (09:04→20:35)
[2023-06-30] MEDS: FERROUS SULFATE 325 MG TABLET DR PO ×2 (09:05→17:27)
--- NOTE | 2023-06-30 11:02 | PM.IMPN ---
Progress Note: A&P Assessment and Plan (1) Atrial fibrillation with rapid ventricular response: Code(s): I48.91 - Unspecified atrial fibrillation Status: Acute Assessment and Plan: Patient presents with tachycardia. Admission EKG shows AFib with RVR rate of 142 and incomplete right bundle-branch block. Has had left anterior fascicular block poor R-wave progression. TSH normal. CTA of the chest negative for PE. Lower extremity venous Dopplers negative for DVT. He was treated with diltiazem started on diltiazem drip. Converted to normal sinus rhythm. Chads 2 Vasc score is 0 (now 1 with LV dysfxn) Echo showing EF 30-35% with diastolic dysfunction and mild valvular disease. He has severely enlarged LV chamber and globally reduced systolic function. Change to Toprol XL. Add Entresto. Cardiology consult (2) Cardiomyopathy: Code(s): I42.9 - Cardiomyopathy, unspecified Status: Acute Assessment and Plan: Echo as above. Concern for PNA but may have pulmonary edema resultinig in his hypoxia. Check CXR and BNP Lasix once Cards consult. (3) Influenza A: Code(s): J10.1 - Influenza due to other identified influenza virus with other respiratory manifestations Status: Acute Assessment and Plan: Patient is influenza A positive. Chest x-ray showing airspace opacities in midlung zones and right lung base possibly pneumonia. CT of the chest showed no obvious pulmonary emboli but did show pulmonary opacities consistent with bronchopneumonia. Still with hypoxia on 2 L. Continue with Tamiflu. Wean oxygen as tolerated. (4) Pneumonia: Code(s): J18.9 - Pneumonia, unspecified organism Status: Acute Assessment and Plan: Imaging as above. Concern for bacterial pneumonia. MRSA nasal swab was negative. He was started on azithromycin, Rocephin and vancomycin. Blood cultures no growth to date. Procalcitonin and CRP levels trending downward. Okay to stop vancomycin. Wean oxygen as tolerated. (5) Hypoxia: Code(s): R09.02 - Hypoxemia Status: Acute Assessment and Plan: Related to bacterial pneumonia and influenza A. Bronchodilators have been started. Mucinex has been added. Wean oxygen as tolerated Question about apsiration so will have ST eval (6) Pancytopenia: Code(s): D61.818 - Other pancytopenia Status: Acute Assessment and Plan: Patient with pancytopenia. Unclear in duration. Could be related to medications (leflunomide) and/or influenza. Oncology/hematology consulted and appreciate their input. B12 and folate levels normal. Iron studies noted. Normal reticulocyte count and normal immature platelet fraction to suggest poor bone marrow response. Rare schistocyte noted. CT Abd/pelvis results reviewed. --Possible renal masss but US showing this to be more of a hemorrhagic cyst --Possible acute cholecystititis. No pain and LFTs/lipase normal. US more consistent with GB wall edema. Iron has been started. (7) Elevated troponin: Code(s): R79.89 - Other specified abnormal findings of blood chemistry Status: Acute Assessment and Plan: Troponin elevated to 0.008 but trending down from there. A significant evidence of ischemia noted on the initial EKG when he was tachycardic except for poor or depression. Oral progression has persisted on repeat EKGs. Echo as above. Cards consulted (8) Rheumatoid arthritis: Qualifiers: Rheumatoid arthritis location: unspecified site Rheumatoid factor presence: with rheumatoid factor Qualified Code(s): M05.9 - Rheumatoid arthritis with rheumatoid factor, unspecified Code(s): M06.9 - Rheumatoid arthritis, unspecified Status: Acute Assessment and Plan: Stable. Leflunomide on hold. (9) Immunocompromised state due to drug therapy: Code(s): D84.821 - Immunodeficiency due to drugs; Z79.899 - Other snf (current) drug therapy
[2023-06-30] MEDS: SACUBITRIL/VALSARTAN 24-26 MG TABLET 1 TAB PO ×2 (11:51→20:35)
[2023-06-30] MEDS: FUROSEMIDE INJ 40 MG/4 ML VIAL 20 MG IV PUSH (11:52)
[2023-06-30 12:20] LABS: NT Pro B Type Natriuretic Pept 2820 pg/mL (19.9-100)
[2023-06-30] MEDS: METOPROLOL TARTRATE INJ 5 MG/5 ML VIAL IV PUSH (13:29)
--- NOTE | 2023-06-30 13:42 | ECG_ITS ---
Measurements Intervals [place] Rate: 112 P: AL: 0 QRS: -22 QRSD: 111 T: 15 QT: 353 QTc: 483 Interpretive Statements ATRIAL FIBRILLATION WITH RAPID VENTRICULAR RESPONSE BORDERLINE LEFT AXIS DEVIATION [QRS AXIS < -20] MODERATE INTRAVENTRICULAR CONDUCTION DELAY [110+ ms QRS DURATION] ABNORMAL RHYTHM ECG COMPARED TO ECG 06/28/2023 17:22:44 ATRIAL FIBRILLATION NOW PRESENT INTRAVENTRICULAR CONDUCTION DELAY NOW PRESENT Electronically Signed On 06-30-2023 19:18:31 PHOTOGRAPHIC TECHNICIAN by Abiola Torres M.D.
[2023-06-30] MEDS: METOPROLOL TARTRATE 25 MG TABLET PO (14:26)
--- NOTE | 2023-06-30 14:46 | PM.CNCAR ---
Assessment and Plan Assessment and plan (1) Influenza A: Code(s): J10.1 - Influenza due to other identified influenza virus with other respiratory manifestations Status: Acute Assessment and Plan: Management as per primary team. (2) Paroxysmal atrial fibrillation with rapid ventricular response: Code(s): I48.0 - Paroxysmal atrial fibrillation Status: Acute Assessment and Plan: New diagnosis of atrial fibrillation for the patient. Unclear for how long patient was in AFIB for prior to admission. May have been triggered by his Influenza. TSH level normal. [id number] of 1 for his cardiomyopathy, therefore, does not need anticoagulation for stroke prophylaxis at this time. Agree with [place]. (3) Cardiomyopathy: Code(s): I42.9 - Cardiomyopathy, unspecified Status: Acute Assessment and Plan: Echocardiogram done 06/29 shows severely enlarged LV size, LVEF moderately reduced at 30-35%, severely enlarged left atrium, mild MR. This is a new diagnosis of heart failure with reduced ejection fraction for the patient. Possibly tachycardia mediated cardiomyopathy vs viral cardiomyopathy vs ischemia. Agree with Toprol and Entresto. Can give Lasix as needed. Thus far he is tolerating Entresto. Will plan to start Spironolactone tomorrow. Will eventually need SGLT2 inhibitor as well. Will need re-evaluation of his LVEF once AFIB is controlled and he recovers from Influenza. Eventual ischemic evaluation, however, patient is not a candidate for cardiac cath at this time given his pancytopenia. Will need to ensure stability of Hgb and Plt count levels prior to consideration for cath. Since patient is without any anginal symptoms and does not have acute coronary syndrome, no urgency for cath; will defer it to outpatient once he has recovered from Influenza and pending workup of his panctyopenia. (4) Elevated troponin: Code(s): R79.89 - Other specified abnormal findings of blood chemistry Status: Acute Assessment and Plan: Troponins of 0.085, 0.069, 0.058. In setting of Influenza infection, AFIB with RVR. No chest pain. Does not appear to be an acute coronary syndrome. (5) Pancytopenia: Code(s): D61.818 - Other pancytopenia Status: Acute Assessment and Plan: Oncology/Hematology consulted. History of Present Illness History of Present Illness Consult date/time: 06/30/23 14:46 Requesting physician: Juan Engle MD Consult reason: congestive heart failure Reason For Visit: Paroxysmal Afib w RVR/Influenza A/Pancytopenia/Marquita Narrative: We are consulted for congestive heart failure. This is a 63 year old male with rheumatoid arthritis on Leflunomide who presented from his PCP's office for rapid heart rate, found to be in atrial fibrillation with RVR. Patient reports flu-like symptoms since Wednesday, but denies any chest pain, palpitations. He was started on Diltiazem drip, which has since been stopped and started on Metoprolol. He was also found to be positive for Influenza A. Noted to have significant pancytopenia with WBC of 3.6, Hgb 9.6, platelet 67. Troponins of 0.085, 0.069, 0.058. NT pro BNP of 2820. Inital EKG with AFIB with RVR, repeat EKGs with sinus rhythm, however, he is back on AFIB at the time of my exam on tele. Echocardiogram done 06/29 shows severely enlarged LV size, LVEF moderately reduced at 30-35%, severely enlarged left atrium, mild MR. Review of Systems Review of Systems: All systems reviewed & are unremarkable except as noted in HPI and below (HPI) PMFSH Past Medical History Medical History Chronic pain syndrome Related to RA. Immunocompromised state due to drug therapy Rheumatoid arthritis Surgical History Surgical History History of appendectomy Family History Family History Father
--- NOTE | 2023-06-30 15:26 | PCSTNOTE ---
Spoke with Annabel RN, concerning BSE today, stated patient is moving to ICU overflow with breathing and heart rate issues. Will check to do BSE in the morning.
--- NOTE | 2023-06-30 15:55 | PC.NURSE ---
This patient, Taiwo J Suzanne Santo, was received from [[id number]] on 06/30/23 at 1545. Patient/family oriented to unit policies and routines.
[2023-06-30] MEDS: AMIODARONE 150 MG/D5W 100 ML 150 MG/100 ML BAG 600 MG IV CONT (18:22)
[2023-06-30] MEDS: AMIODARONE 360 MG/D5W 200 ML 360 MG/200 ML BAG 16.67 MG IV CONT (18:23)
[2023-06-30] MEDS: AMIODARONE 360 MG/D5W 200 ML 360 MG/200 ML BAG 33.33 MG IV CONT (20:00)
[2023-06-30] MEDS: DOXYCYCLINE HYCLATE 100 MG TABLET PO (20:35)
[2023-06-30] MEDS: cefTRIAXone 2 GM/NS 100 ML 2 GM/100 ML BAG IVPB (20:35)
[2023-07-01] VITALS (27 sets, daily range): BP systolic 98–116; BP diastolic 52–94; PULSE 71–139; RESP 20–29; TEMP 36.4–37.1; O2SAT 92–99
[2023-07-01] MEDS: AMIODARONE 360 MG/D5W 200 ML 360 MG/200 ML BAG 16.67 MG IV CONT ×2 (00:04→12:03)
[2023-07-01] MEDS: LEVALBUTEROL NEB 1.25 MG/3 ML INHALATION ×4 (02:15→20:02)
[2023-07-01] MEDS: IPRATROPIUM BR 0.02% INH SOLN 0.5 MG/2.5 ML VIAL INHALATION ×4 (02:16→20:02)
[2023-07-01 04:18] LABS: Anion Gap 6 mmol/L (8-16); Blood Urea Nitrogen 12 mg/dL (9-20); Calcium 8.6 mg/dL (8.4-10.2); Carbon Dioxide 23 mmol/L (22-30); Chloride 103 mmol/L (98-107); Estimated CRCL calculation 121 ml/min; Estimated Glomerular Filt Rate > 60; Glucose 104 mg/dL (65-110); Potassium 3.4 mmol/L (3.4-5.0); Sodium 132 mmol/L (137-145)
[2023-07-01 04:43] LABS: Basophils Percent Auto 0.8 % (0.2-1.2); Eosinophils Percent Auto 0.4 % (0-4.4); Hematocrit 27.1 % (42.0-52.0); Hemoglobin 8.8 g/dL (14.0-18.0); Immature Granulocyte Absolute 0.01 K/mm3 (0.00-0.031); Immature Granulocyte Percent A 0.4 % (0-0.5); Lymphocytes Absolute Auto 1.27 K/mm3 (0.9-3.2); Lymphocytes Percent Auto 49.6 % (18.3-44.2); Mean Corpuscular HGB Conc 32.5 g/dl (32-36); Mean Corpuscular Hemoglobin 29.1 pg (26-34); Mean Corpuscular Volume 89.7 fl (80-100); Monocytes Absolute Auto 0.1 K/mm3 (0.1-0.6); Monocytes Percent Auto 5.5 % (2.6-8.5); Neutrophils Absolute Auto 1.1 K/mm3 (1.3-6.7); Neutrophils Percent Auto 43.3 % (45.5-73.1); Platelet Count Result 50 k/mm3 (150-375); Red Blood Count 3.02 M/mm3 (4.6-6.20); Red Cell Distribution Width 18.4 % (11.5-14.5); White Blood Count 2.6 K/mm3 (4.5-10.0)
[2023-07-01 05:15] LABS: Anisocytosis 1+ (NORMAL); Hypochromasia 1+ (NORMAL); Platelet Clumps Present; Platelet Estimate Decreased (Adequate); Schistocytes None Seen (NORMAL)
[2023-07-01] MEDS: DOXYCYCLINE HYCLATE 100 MG TABLET PO ×2 (08:43→20:40)
[2023-07-01] MEDS: SACUBITRIL/VALSARTAN 24-26 MG TABLET 1 TAB PO ×2 (08:43→20:39)
[2023-07-01] MEDS: SPIRONOLACTONE 25 MG TABLET PO (08:43)
[2023-07-01] MEDS: guaiFENesin 12 HR 600 MG TABCR 1200 MG PO ×2 (08:43→20:39)
[2023-07-01] MEDS: OSELTAMIVIR PHOSPHATE 75 MG CAPSULE PO ×2 (08:43→20:39)
[2023-07-01] MEDS: FERROUS SULFATE 325 MG TABLET DR PO ×2 (08:43→17:30)
[2023-07-01] MEDS: METOPROLOL SUCCINATE EXT REL 50 MG TABCR PO (08:44)
--- NOTE | 2023-07-01 09:09 | PCSTNOTE ---
Please refer to the Bedside Swallow Evaluation in the EMR. Please note, silent aspiration cannot be ruled out at bedside.
--- NOTE | 2023-07-01 14:20 | PM.PNCARD ---
Progress Note: A&P Assessment and Plan (1) Influenza A: Code(s): J10.1 - Influenza due to other identified influenza virus with other respiratory manifestations Status: Acute Assessment and Plan: Management as per primary team. (2) Paroxysmal atrial fibrillation with rapid ventricular response: Code(s): I48.0 - Paroxysmal atrial fibrillation Status: Acute Assessment and Plan: New diagnosis of atrial fibrillation for the patient. Unclear for how long patient was in AFIB for prior to admission. May have been triggered by his Influenza. TSH level normal. [id number] of 1 for his cardiomyopathy, therefore, does not need anticoagulation for stroke prophylaxis at this time. Agree with Toprol. Continue with Amiodarone drip for remainder of today, will plan to switch to PO tomorrow if he remains in sinus rhythm. Do not anticipate him needing long-term Amiodarone therapy, will plan for just short term. (3) Cardiomyopathy: Code(s): I42.9 - Cardiomyopathy, unspecified Status: Acute Assessment and Plan: Echocardiogram done 06/29 shows severely enlarged LV size, LVEF moderately reduced at 30-35%, severely enlarged left atrium, mild MR. This is a new diagnosis of heart failure with reduced ejection fraction for the patient. Possibly tachycardia mediated cardiomyopathy vs viral cardiomyopathy vs ischemia. Agree with Toprol and Entresto. Can give Lasix as needed. Thus far he is tolerating Entresto. Added Spironolactone today. Will eventually need SGLT2 inhibitor as well. Will need re-evaluation of his LVEF once AFIB is controlled and he recovers from Influenza. Eventual ischemic evaluation, however, patient is not a candidate for cardiac cath at this time given his pancytopenia. Will need to ensure stability of Hgb and Plt count levels prior to consideration for cath. Since patient is without any anginal symptoms and does not have acute coronary syndrome, no urgency for cath; will defer it to outpatient once he has recovered from Influenza and pending workup of his pancytopenia. (4) Elevated troponin: Code(s): R79.89 - Other specified abnormal findings of blood chemistry Status: Acute Assessment and Plan: Troponins of 0.085, 0.069, 0.058. In setting of Influenza infection, AFIB with RVR. No chest pain. Does not appear to be an acute coronary syndrome. (5) Pancytopenia: Code(s): D61.818 - Other pancytopenia Status: Acute Assessment and Plan: Oncology/Hematology consulted. Subjective Date/time seen: 07/01/23 14:20 Interval history: Reason for visit: AFIB with RVR, CHF HPI: We are consulted for congestive heart failure. This is a 63 year old male with rheumatoid arthritis on Leflunomide who presented from his PCP's office for rapid heart rate, found to be in atrial fibrillation with RVR. Patient reports flu-like symptoms since Wednesday, but denies any chest pain, palpitations. He was started on Diltiazem drip, which has since been stopped and started on Metoprolol. He was also found to be positive for Influenza A. Noted to have significant pancytopenia with WBC of 3.6, Hgb 9.6, platelet 67. Troponins of 0.085, 0.069, 0.058. NT pro BNP of 2820. Inital EKG with AFIB with RVR, repeat EKGs with sinus rhythm, however, he is back on AFIB at the time of my exam on tele. Echocardiogram done 06/29 shows severely enlarged LV size, LVEF moderately reduced at 30-35%, severely enlarged left atrium, mild MR. Date of service : Was started on Amiodarone drip yesterday afternoon due to AFIB with RVR and soft blood pressures. He converted to sinus rhythm this afternoon. Denies any chest pain, palpitations, or shortness of breath when he was in AFIB with RVR. Otherwise he is feeling well. Exam Const: General: comfortable and no acute distress HENMT: Mouth: Yes moist mucous membranes Eyes: General: appearance normal, both eyes and all related structures Sclera: sclerae normal Resp:
--- NOTE | 2023-07-01 15:57 | PM.IMPN ---
Progress Note: A&P Assessment and Plan (1) Atrial fibrillation with rapid ventricular response: Code(s): I48.91 - Unspecified atrial fibrillation Status: Acute Assessment and Plan: Patient presents with tachycardia. Admission EKG shows AFib with RVR rate of 142, incomplete right bundle-branch block, left anterior fascicular block and poor R-wave progression. TSH normal. CTA of the chest negative for PE. Lower extremity venous Dopplers negative for DVT. He was treated with diltiazem and started on diltiazem drip. [id number] score is 0 (now 1 with LV dysfxn) Echo showing EF 30-35% with diastolic dysfunction and mild valvular disease. He has severely enlarged LV chamber and globally reduced systolic function. Changed to Toprol XL. He went back into AFib/RVR and had to be moved to the IMU again. Amiodarone drip started with improvement. Cardiology consulted and appreciate their input (2) Cardiomyopathy: Code(s): I42.9 - Cardiomyopathy, unspecified Status: Acute Assessment and Plan: Echo as above. Concern for PNA but may have pulmonary edema resulting in his hypoxia. CXR stable diffuse lung dz with BNP 2820 Lasix once given. Lung exam improved. Toprol XL, Spironolactone and Entresto started. (3) Influenza A: Code(s): J10.1 - Influenza due to other identified influenza virus with other respiratory manifestations Status: Acute Assessment and Plan: Patient is influenza A positive. Chest x-ray showing airspace opacities in midlung zones and right lung base possibly pneumonia. CT of the chest showed no obvious pulmonary emboli but did show pulmonary opacities consistent with bronchopneumonia. Still with hypoxia on 2 L. Continue with Tamiflu. Wean oxygen as tolerated. (4) Pneumonia: Code(s): J18.9 - Pneumonia, unspecified organism Status: Acute Assessment and Plan: Imaging as above. Concern for bacterial pneumonia. MRSA nasal swab was negative. He was started on azithromycin, Rocephin and vancomycin. Blood cultures no growth to date. Procalcitonin and CRP levels trending downward. Vancomycin stopped. Azithro changed to Doxycycline Wean oxygen as tolerated. (5) Hypoxia: Code(s): R09.02 - Hypoxemia Status: Acute Assessment and Plan: Related to bacterial pneumonia and influenza A. Bronchodilators have been started. Mucinex has been added. Wean oxygen as tolerated Question about aspiration but ST evaluation okay (6) Pancytopenia: Code(s): D61.818 - Other pancytopenia Status: Acute Assessment and Plan: Patient with pancytopenia. Unclear in duration. Could be related to medications (leflunomide) and/or influenza. Oncology/hematology consulted and appreciate their input. B12 and folate levels normal. Iron studies noted. Normal reticulocyte count and normal immature platelet fraction to suggest poor bone marrow response. Rare schistocyte noted. CT Abd/pelvis results reviewed. --Possible renal mass but US showing this to be more of a hemorrhagic cyst --Possible acute cholecystitis. No pain and LFTs/lipase normal. US more consistent with GB wall edema. Iron has been started. Follow levels (7) Elevated troponin: Code(s): R79.89 - Other specified abnormal findings of blood chemistry Status: Acute Assessment and Plan: Troponin elevated to 0.008 but trending down from there. No significant evidence of ischemia by EKG Echo as above. Cards consulted [place] elevated Trop related to demand ischemia from AFib/RVR (8) Rheumatoid arthritis: Qualifiers: Rheumatoid arthritis location: unspecified site Rheumatoid factor presence: with rheumatoid factor Qualified Code(s): M05.9 - Rheumatoid arthritis with rheumatoid factor, unspecified Code(s): M06.9 - Rheumatoid arthritis, unspecified Status: Acute Assessment and Plan: Stable. Leflunomide on hold. (9
[2023-07-01] MEDS: cefTRIAXone 2 GM/NS 100 ML 2 GM/100 ML BAG IVPB (20:40)
[2023-07-02] VITALS (24 sets, daily range): BP systolic 106–119; BP diastolic 57–71; PULSE 66–86; RESP 15–34; TEMP 36.7–37.2; O2SAT 94–99
[2023-07-02] MEDS: AMIODARONE 360 MG/D5W 200 ML 360 MG/200 ML BAG 16.67 MG IV CONT (00:19)
[2023-07-02] MEDS: LEVALBUTEROL NEB 1.25 MG/3 ML INHALATION ×4 (02:13→20:51)
[2023-07-02] MEDS: IPRATROPIUM BR 0.02% INH SOLN 0.5 MG/2.5 ML VIAL INHALATION ×4 (02:13→20:51)
[2023-07-02 03:57] LABS: Basophils Percent Auto 0.6 % (0.2-1.2); Hematocrit 23.8 % (42.0-52.0); Hemoglobin 7.9 g/dL (14.0-18.0); Immature Granulocyte Absolute 0.01 K/mm3 (0.00-0.031); Immature Granulocyte Percent A 0.3 % (0-0.5); Immature Platelet Fraction Pct 10.1 % (0.9-11.2); Lymphocytes Absolute Auto 1.24 K/mm3 (0.9-3.2); Lymphocytes Percent Auto 39.7 % (18.3-44.2); Mean Corpuscular HGB Conc 33.2 g/dl (32-36); Mean Corpuscular Hemoglobin 29.7 pg (26-34); Mean Corpuscular Volume 89.5 fl (80-100); Monocytes Absolute Auto 0.2 K/mm3 (0.1-0.6); Monocytes Percent Auto 5.1 % (2.6-8.5); Neutrophils Absolute Auto 1.7 K/mm3 (1.3-6.7); Neutrophils Percent Auto 53.3 % (45.5-73.1); Platelet Count Result 47 k/mm3 (150-375); Red Blood Count 2.66 M/mm3 (4.6-6.20); Red Cell Distribution Width 17.8 % (11.5-14.5); White Blood Count 3.1 K/mm3 (4.5-10.0)
[2023-07-02 04:10] LABS: Alanine Aminotransferase 30 U/L (6-50); Albumin Level 3.1 g/dL (3.5-5.1); Alkaline Phosphatase 81 U/L (38-126); Anion Gap 5 mmol/L (8-16); Aspartate Amino Transferase 43 U/L (17-59); Bilirubin,Total 0.6 mg/dL (0.2-1.3); Blood Urea Nitrogen 14 mg/dL (9-20); Calcium 8.5 mg/dL (8.4-10.2); Carbon Dioxide 23 mmol/L (22-30); Chloride 104 mmol/L (98-107); Estimated CRCL calculation 121 ml/min; Estimated Glomerular Filt Rate > 60; Glucose 103 mg/dL (65-110); Potassium 3.4 mmol/L (3.4-5.0); Sodium 132 mmol/L (137-145)
[2023-07-02 04:19] LABS: Anisocytosis 1+ (NORMAL); Hypochromasia 1+ (NORMAL); Microcytosis 1+ (NORMAL); Platelet Estimate Decreased (Adequate)
[2023-07-02 04:20] LABS: Schistocytes None Seen (NORMAL)
[2023-07-02] MEDS: guaiFENesin 12 HR 600 MG TABCR 1200 MG PO ×2 (08:18→20:07)
[2023-07-02] MEDS: DOXYCYCLINE HYCLATE 100 MG TABLET PO ×2 (08:18→20:06)
[2023-07-02] MEDS: SPIRONOLACTONE 25 MG TABLET PO (08:18)
[2023-07-02] MEDS: SACUBITRIL/VALSARTAN 24-26 MG TABLET 1 TAB PO ×2 (08:18→20:06)
[2023-07-02] MEDS: METOPROLOL SUCCINATE EXT REL 50 MG TABCR PO (08:18)
[2023-07-02] MEDS: FERROUS SULFATE 325 MG TABLET DR PO ×2 (08:18→17:54)
[2023-07-02] MEDS: OSELTAMIVIR PHOSPHATE 75 MG CAPSULE PO ×2 (08:19→20:06)
[2023-07-02 08:50] LABS: Methylmalonic Acid 75 nmol/L (87-318)
--- NOTE | 2023-07-02 11:44 | PM.PNCARD ---
Progress Note: A&P Assessment and Plan (1) Influenza A: Code(s): J10.1 - Influenza due to other identified influenza virus with other respiratory manifestations Status: Acute Assessment and Plan: Management as per primary team. (2) Paroxysmal atrial fibrillation with rapid ventricular response: Code(s): I48.0 - Paroxysmal atrial fibrillation Status: Acute Assessment and Plan: New diagnosis of atrial fibrillation for the patient. Unclear for how long patient was in AFIB for prior to admission. May have been triggered by his Influenza. TSH level normal. [id number] of 1 for his cardiomyopathy, therefore, does not need anticoagulation for stroke prophylaxis at this time. Agree with Toprol. Shifted to maintenance dose of p.o. amiodarone today. Do not anticipate residential use of amiodarone. (3) Cardiomyopathy: Code(s): I42.9 - Cardiomyopathy, unspecified Status: Acute Assessment and Plan: Echocardiogram done 06/29 shows severely enlarged LV size, LVEF moderately reduced at 30-35%, severely enlarged left atrium, mild MR. This is a new diagnosis of heart failure with reduced ejection fraction for the patient. Possibly tachycardia mediated cardiomyopathy vs viral cardiomyopathy vs ischemia. Agree with Toprol and Entresto. Can give Lasix as needed. Thus far he is tolerating Entresto. Continue Spironolactone Will eventually need SGLT2 inhibitor as well. Will need re-evaluation of his LVEF once AFIB is controlled and he recovers from Influenza. Eventual ischemic evaluation, however, patient is not a candidate for cardiac cath at this time given his pancytopenia. Will need to ensure stability of Hgb and Plt count levels prior to consideration for cath. Since patient is without any anginal symptoms and does not have acute coronary syndrome, no urgency for cath; will defer it to outpatient once he has recovered from Influenza and pending workup of his pancytopenia. Probably discharge in the next 24-48 hours (4) Elevated troponin: Code(s): R79.89 - Other specified abnormal findings of blood chemistry Status: Acute Assessment and Plan: Troponins of 0.085, 0.069, 0.058. In setting of Influenza infection, AFIB with RVR. No chest pain. Does not appear to be an acute coronary syndrome. (5) Pancytopenia: Code(s): D61.818 - Other pancytopenia Status: Acute Assessment and Plan: Oncology/Hematology consulted. Subjective Date/time seen: 07/02/23 11:44 Interval history: Reason for visit: AFIB with RVR, CHF HPI: We are consulted for congestive heart failure. This is a 63 year old male with rheumatoid arthritis on Leflunomide who presented from his PCP's office for rapid heart rate, found to be in atrial fibrillation with RVR. Patient reports flu-like symptoms since Wednesday, but denies any chest pain, palpitations. He was started on Diltiazem drip, which has since been stopped and started on Metoprolol. He was also found to be positive for Influenza A. Noted to have significant pancytopenia with WBC of 3.6, Hgb 9.6, platelet 67. Troponins of 0.085, 0.069, 0.058. NT pro BNP of 2820. Inital EKG with AFIB with RVR, repeat EKGs with sinus rhythm, however, he is back on AFIB at the time of my exam on tele. Echocardiogram done 06/29 shows severely enlarged LV size, LVEF moderately reduced at 30-35%, severely enlarged left atrium, mild MR. Date of service : Was started on Amiodarone drip yesterday afternoon due to AFIB with RVR and soft blood pressures. He converted to sinus rhythm this afternoon. Denies any chest pain, palpitations, or shortness of breath when he was in AFIB with RVR. Otherwise he is feeling well. Date of service 07/02/2023: Remains in sinus rhythm today. Reports feeling well - no palpitations, chest pain, shortness of breath. Off O2 today and remains stable. Review of Systems Review of Systems: All systems reviewed & are unremarkable except
--- NOTE | 2023-07-02 15:11 | PM.IMPN ---
Progress Note: A&P Assessment and Plan (1) Atrial fibrillation with rapid ventricular response: Code(s): I48.91 - Unspecified atrial fibrillation Status: Acute Assessment and Plan: Patient presents with tachycardia. Admission EKG shows AFib with RVR rate of 142, incomplete right bundle-branch block, left anterior fascicular block and poor R-wave progression. TSH normal. CTA of the chest negative for PE. Lower extremity venous Dopplers negative for DVT. He was treated with diltiazem and started on diltiazem drip. [id number] score is 0 (now 1 with LV dysfxn) Echo showing EF 30-35% with diastolic dysfunction and mild valvular disease. He has severely enlarged LV chamber and globally reduced systolic function. Changed to Toprol XL. He went back into AFib/RVR and had to be moved to the IMU again. Amiodarone drip started and converted to NSR. Cardiology consulted and appreciate their input. Amiodarone changed to oral route (2) Cardiomyopathy: Code(s): I42.9 - Cardiomyopathy, unspecified Status: Acute Assessment and Plan: Echo as above. Concern for PNA but may have pulmonary edema resulting in his hypoxia. CXR stable diffuse lung dz with BNP 2820 Lasix once given. Lung exam improved. Toprol XL, Spironolactone and Entresto started. He remains on room air (3) Influenza A: Code(s): J10.1 - Influenza due to other identified influenza virus with other respiratory manifestations Status: Acute Assessment and Plan: Patient is influenza A positive. Chest x-ray showing airspace opacities in midlung zones and right lung base possibly pneumonia. CT of the chest showed no obvious pulmonary emboli but did show pulmonary opacities consistent with bronchopneumonia. Weaned to room air Continue with Tamiflu. (4) Pneumonia: Code(s): J18.9 - Pneumonia, unspecified organism Status: Acute Assessment and Plan: Imaging as above. Concern for bacterial pneumonia. MRSA nasal swab was negative. He was started on azithromycin, Rocephin and vancomycin. Blood cultures no growth to date. Procalcitonin and CRP levels trending downward. Vancomycin stopped. Azithro changed to Doxycycline Follow (5) Hypoxia: Code(s): R09.02 - Hypoxemia Status: Acute Assessment and Plan: Related to bacterial pneumonia and influenza A. Bronchodilators have been started. Mucinex has been added. Question about aspiration but ST evaluation okay resolving (6) Pancytopenia: Code(s): D61.818 - Other pancytopenia Status: Acute Assessment and Plan: Patient with pancytopenia. Unclear in duration. Could be related to medications (leflunomide) and/or influenza. Oncology/hematology consulted and appreciate their input. B12 and folate levels normal. Iron studies noted. Normal reticulocyte count and normal immature platelet fraction to suggest poor bone marrow response. Rare schistocyte noted. CT Abd/pelvis results reviewed. --Possible renal mass but US showing this to be more of a hemorrhagic cyst --Possible acute cholecystitis. No pain and LFTs/lipase normal. US more consistent with GB wall edema. Iron has been started. WBC climbing slowly. Hgb stable in the 7-8 mely. Plt count low but stable. Follow levels (7) Elevated troponin: Code(s): R79.89 - Other specified abnormal findings of blood chemistry Status: Acute Assessment and Plan: Troponin elevated to 0.008 but trending down from there. No significant evidence of ischemia by EKG Echo as above. Cards consulted [place] elevated Trop related to demand ischemia from AFib/RVR (8) Rheumatoid arthritis: Qualifiers: Rheumatoid arthritis location: unspecified site Rheumatoid factor presence: with rheumatoid factor Qualified Code(s): M05.9 - Rheumatoid arthritis with rheumatoid factor, unspecified Code(s): M06.9 - Rheumatoid arthritis, unspecified Status:
[2023-07-02] MEDS: AMIODARONE HCL 200 MG TABLET PO (15:14)
[2023-07-02] MEDS: POTASSIUM CHLORIDE 20 MEQ ER TABLET PO (17:54)
[2023-07-02 18:02] LABS: Anti Nuclear Antibody Pattern Nuclear, Speckled
[2023-07-02 19:52] LABS: Platelet Antibody, Direct POSITIVE (NEGATIVE)
[2023-07-02] MEDS: cefTRIAXone 2 GM/NS 100 ML 2 GM/100 ML BAG IVPB (20:07)
[2023-07-03] VITALS (17 sets, daily range): BP systolic 103–123; BP diastolic 57–67; PULSE 67–88; RESP 13–36; TEMP 36.2–37.2; O2SAT 94–97
[2023-07-03] MEDS: LEVALBUTEROL NEB 1.25 MG/3 ML INHALATION ×3 (02:02→13:01)
[2023-07-03] MEDS: IPRATROPIUM BR 0.02% INH SOLN 0.5 MG/2.5 ML VIAL INHALATION ×3 (02:02→13:01)
[2023-07-03 04:03] LABS: Basophils Percent Auto 0.5 % (0.2-1.2); Eosinophils Absolute Auto 0.1 K/mm3 (0-0.3); Eosinophils Percent Auto 1.3 % (0-4.4); Hematocrit 26.5 % (42.0-52.0); Hemoglobin 8.2 g/dL (14.0-18.0); Immature Granulocyte Absolute 0.04 K/mm3 (0.00-0.031); Immature Granulocyte Percent A 1.1 % (0-0.5); Immature Platelet Fraction Pct 11.4 % (0.9-11.2); Lymphocytes Absolute Auto 1.45 K/mm3 (0.9-3.2); Lymphocytes Percent Auto 38.9 % (18.3-44.2); Mean Corpuscular HGB Conc 30.9 g/dl (32-36); Mean Corpuscular Hemoglobin 29.1 pg (26-34); Monocytes Absolute Auto 0.3 K/mm3 (0.1-0.6); Monocytes Percent Auto 7.2 % (2.6-8.5); Neutrophils Absolute Auto 1.9 K/mm3 (1.3-6.7); Platelet Count Result 52 k/mm3 (150-375); Red Blood Count 2.82 M/mm3 (4.6-6.20); Red Cell Distribution Width 18.2 % (11.5-14.5); White Blood Count 3.7 K/mm3 (4.5-10.0)
[2023-07-03 04:11] LABS: Albumin Level 3.3 g/dL (3.5-5.1); Anion Gap 7 mmol/L (8-16); Blood Urea Nitrogen 11 mg/dL (9-20); Calcium 8.5 mg/dL (8.4-10.2); Carbon Dioxide 19 mmol/L (22-30); Chloride 105 mmol/L (98-107); Estimated CRCL calculation 121 ml/min; Estimated Glomerular Filt Rate > 60; Glucose 101 mg/dL (65-110); Magnesium 2.1 mg/dL (1.6-2.3); Phosphorus 2.9 mg/dL (2.5-4.5); Potassium 3.7 mmol/L (3.4-5.0); Sodium 131 mmol/L (137-145)
[2023-07-03 04:35] LABS: Platelet Estimate Decreased (Adequate)
[2023-07-03 04:36] LABS: Anisocytosis 1+ (NORMAL); Schistocytes Rare (NORMAL)
[2023-07-03 04:37] LABS: Crenated RBC 1+ (NORMAL); Spherocytes 1+ (NORMAL)
[2023-07-03] MEDS: SPIRONOLACTONE 25 MG TABLET PO (08:42)
[2023-07-03] MEDS: METOPROLOL SUCCINATE EXT REL 50 MG TABCR PO (08:42)
[2023-07-03] MEDS: SACUBITRIL/VALSARTAN 24-26 MG TABLET 1 TAB PO (08:42)
[2023-07-03] MEDS: OSELTAMIVIR PHOSPHATE 75 MG CAPSULE PO (08:42)
[2023-07-03] MEDS: guaiFENesin 12 HR 600 MG TABCR 1200 MG PO (08:42)
[2023-07-03] MEDS: FERROUS SULFATE 325 MG TABLET DR PO (08:42)
[2023-07-03] MEDS: AMIODARONE HCL 200 MG TABLET PO (08:42)
[2023-07-03] MEDS: DOXYCYCLINE HYCLATE 100 MG TABLET PO (08:43)
--- NOTE | 2023-07-03 10:46 | PM.PNCARD ---
Progress Note: A&P Assessment and Plan (1) Influenza A: Code(s): J10.1 - Influenza due to other identified influenza virus with other respiratory manifestations Status: Acute Assessment and Plan: Management as per primary team. (2) Paroxysmal atrial fibrillation with rapid ventricular response: Code(s): I48.0 - Paroxysmal atrial fibrillation Status: Acute Assessment and Plan: New diagnosis of atrial fibrillation for the patient. Unclear for how long patient was in AFIB for prior to admission. May have been triggered by his Influenza. TSH level normal. [id number] of 1 for his cardiomyopathy, therefore, does not need anticoagulation for stroke prophylaxis at this time. Agree with Toprol. Shifted to maintenance dose of p.o. amiodarone today. 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 (3) Cardiomyopathy: Code(s): I42.9 - Cardiomyopathy, unspecified Status: Acute Assessment and Plan: Echocardiogram done 06/29 shows severely enlarged LV size, LVEF moderately reduced at 30-35%, severely enlarged left atrium, mild MR. This is a new diagnosis of heart failure with reduced ejection fraction for the patient. Possibly tachycardia mediated cardiomyopathy vs viral cardiomyopathy vs ischemia. Agree with Toprol and Entresto. Can give Lasix as needed. Thus far he is tolerating Entresto. Continue Spironolactone Will eventually need SGLT2 inhibitor as well. Will need re-evaluation of his LVEF once AFIB is controlled and he recovers from Influenza. Eventual ischemic evaluation, however, patient is not a candidate for cardiac cath at this time given his pancytopenia. Will need to ensure stability of Hgb and Plt count levels prior to consideration for cath. Since patient is without any anginal symptoms and does not have acute coronary syndrome, no urgency for cath; will defer it to outpatient once he has recovered from Influenza and pending workup of his pancytopenia. Life vest pending. Once placed, okay for discharge (4) Elevated troponin: Code(s): R79.89 - Other specified abnormal findings of blood chemistry Status: Acute Assessment and Plan: Troponins of 0.085, 0.069, 0.058. In setting of Influenza infection, AFIB with RVR. No chest pain. Does not appear to be an acute coronary syndrome. (5) Pancytopenia: Code(s): D61.818 - Other pancytopenia Status: Acute Assessment and Plan: Oncology/Hematology consulted. Subjective Date/time seen: 07/03/23 10:46 Interval history: Reason for visit: AFIB with RVR, CHF HPI: We are consulted for congestive heart failure. This is a 63 year old male with rheumatoid arthritis on Leflunomide who presented from his PCP's office for rapid heart rate, found to be in atrial fibrillation with RVR. Patient reports flu-like symptoms since Wednesday, but denies any chest pain, palpitations. He was started on Diltiazem drip, which has since been stopped and started on Metoprolol. He was also found to be positive for Influenza A. Noted to have significant pancytopenia with WBC of 3.6, Hgb 9.6, platelet 67. Troponins of 0.085, 0.069, 0.058. NT pro BNP of 2820. Inital EKG with AFIB with RVR, repeat EKGs with sinus rhythm, however, he is back on AFIB at the time of my exam on tele. Echocardiogram done 06/29 shows severely enlarged LV size, LVEF moderately reduced at 30-35%, severely enlarged left atrium, mild MR. Date of service : Was started on Amiodarone drip yesterday afternoon due to AFIB with RVR and soft blood pressures. He converted to sinus rhythm this afternoon. Denies any chest pain, palpitations, or shortness of breath when he was in AFIB with RVR. Otherwise he is feeling well. Date of service 07/02/2023: Remains in sinus rhythm today. Reports feeling well - no palpitations, chest pain, shortness of breath. Off O2 today and remains stable. Date of service 07/03/2023: Anxious to go home. Off of oxygen. No chest pain,
--- NOTE | 2023-07-03 11:36 | PM.DS ---
DS: Admitting Diagnosis Discharge Date 07/03/23 Admitting Diagnosis Rapid heart rate DS: Discharge Diagnosis Discharge Diagnosis (1) Atrial fibrillation with rapid ventricular response: Code(s): I48.91 - Unspecified atrial fibrillation Status: Acute (2) Cardiomyopathy: Code(s): I42.9 - Cardiomyopathy, unspecified Status: Acute (3) Influenza A: Code(s): J10.1 - Influenza due to other identified influenza virus with other respiratory manifestations Status: Acute (4) Pneumonia: Code(s): J18.9 - Pneumonia, unspecified organism Status: Acute (5) Hypoxia: Code(s): R09.02 - Hypoxemia Status: Acute (6) Pancytopenia: Code(s): D61.818 - Other pancytopenia Status: Acute (7) Elevated troponin: Code(s): R79.89 - Other specified abnormal findings of blood chemistry Status: Acute (8) Rheumatoid arthritis: Qualifiers: Rheumatoid arthritis location: unspecified site Rheumatoid factor presence: with rheumatoid factor Qualified Code(s): M05.9 - Rheumatoid arthritis with rheumatoid factor, unspecified Code(s): M06.9 - Rheumatoid arthritis, unspecified Status: Acute (9) Immunocompromised state due to drug therapy: Code(s): D84.821 - Immunodeficiency due to drugs; Z79.899 - Other fpc (current) drug therapy Status: Acute DS: Summary Hospital Course Reason for hospitalization: 63yo male with RA on leflunomide presented to the ED from the PCP's office for rapid heart rate and found to be in AFib with RVR which is a new diagnosis for him. Please see H&P for details. Hospital Course: Patient presents with tachycardia. Admission EKG shows AFib with RVR rate of 142, incomplete right bundle-branch block,? left anterior fascicular block and poor R-wave progression. TSH normal.? CTA of the chest negative for PE.? Lower extremity venous Dopplers negative for DVT. He was treated with diltiazem and started on diltiazem drip.?[id number]-Pffj score is 0 (now 1 with LV dysfxn) so anticoagulation not recommended. Echo showing EF 30-35% with diastolic dysfunction and mild valvular disease.? He has severely enlarged LV chamber and globally reduced systolic function. He was changed to Toprol XL. He went back into AFib/RVR and Amiodarone drip started and he converted to NSR. Cardiology consulted and appreciate their input. Amiodarone changed to oral route. Concern for PNA but may have pulmonary edema resulting in his hypoxia. BNP 2820. Lasix given once. Toprol XL, Spironolactone and Entresto started and tolerated this well. He was weaned to room air. Patient also is influenza A positive. Chest x-ray showing airspace opacities in midlung zones and right lung base possibly pneumonia. CT of the chest showed no obvious pulmonary emboli but did show pulmonary opacities consistent with bronchopneumonia. He was started Tamiflu.?Since there also was a concern for bacterial pneumonia, he was started on azithromycin, Rocephin and vancomycin. MRSA nasal swab was negative. Blood cultures no growth to date.? Procalcitonin and CRP levels trending downward. Vancomycin stopped. Azithro changed to Doxycycline. The hypoxia felt related to bacterial pneumonia and influenza A. Bronchodilators were started.? Mucinex added. Question about aspiration but ST evaluation okay. Hypoxia resolved. Patient with pancytopenia.? Unclear in duration.? Could be related to medications (leflunomide) and/or influenza. Oncology/hematology consulted and appreciate their input. Leflunomide held. B12 and folate levels normal.? Iron studies noted.? Normal reticulocyte count and normal immature platelet fraction. Rare schistocyte noted. CT Abd/pelvis results reviewed: --Possible renal mass but US showing this to be more of a hemorrhagic cyst --Possible acute cholecystitis. No pain and LFTs/lipase normal. US more consistent with GB wall edema. Iron was started. WBC climbing slowly. Hgb stable i
[2023-07-07 12:22] LABS: Soluble Transferrin Receptor 1.01 mg/L (0.76-1.76)
== END 2023-07-03 16:15 | disposition home or self-care (01) | DRG 193 ==
LOC: ANHED 13:10 → ANHIMU 14:58 → ANH3MED 06-29 22:40 → ANHICU 06-30 15:43
PROVIDERS: Internal Medicine; Nurse Practitioner Family; Physician Assistant; Admitting Provider General Practice; Emergency Provider Emergency Medicine; PCP Family Medicine; Visit Provider Internal Medicine
DX: D61.811 Other drug-induced pancytopenia; J10.1 Influenza due to other identified influenza virus with other respiratory manifestations; D84.821 Immunodeficiency due to drugs; I42.9 Cardiomyopathy, unspecified; I24.89 Other forms of acute ischemic heart disease; I48.0 Paroxysmal atrial fibrillation; J18.9 Pneumonia, unspecified organism; T39.4X5A Adverse effect of antirheumatics, not elsewhere classified, initial encounter; D50.9 Iron deficiency anemia, unspecified; I44.4 Left anterior fascicular block; I45.10 Unspecified right bundle-branch block; M06.9 Rheumatoid arthritis, unspecified; R19.7 Diarrhea, unspecified; Z20.822 Contact with and (suspected) exposure to COVID-19; Z87.891 Personal history of nicotine dependence; Z79.899 Other long term (current) drug therapy; Z90.49 Acquired absence of other specified parts of digestive tract
CPT/HCPCS: 36415; 71045; 71275; 74177; 76705; 76775; 80048; 80053; 80069; 80202; 82274; 82565; 82607; 82728; 82746; 83540; 83550; 83605; 83690; 83735; 83880; 83921; 84145; 84238; 84443; 84484; 85025; 85046; 85055; 85380; 85610; 85730; 86023; 86038; 86039; 86140; 87040; 87493; 87637; 87641; 92610; 93005; 93970; 94640; 96365; 96366; 96367; 96375; 96376; 99285; A9270; C8929; G0378; J0282; J0456; J0696; J1756; J1940; J3370; J7050; Q9957; Q9967

== ENCOUNTER 2023-07-15 13:30 | Outpatient (CLI) | payer OTHER, SELFPAY ==
--- NOTE | ~2023-07-15 | XR_ITS ---
EXAMINATION: XR chest 2V DATE: 07/15/2023 13:58 INDICATION: Pneumonia TECHNIQUE: PA and lateral views of the chest were obtained. COMPARISON: Chest radiograph dated 06/30/2023 FINDINGS: Lungs are now clear with interval resolution of prior scattered bilateral patchy airspace opacities. No new airspace opacities, pulmonary edema, pleural effusion or pneumothorax. The cardiomediastinal s ilhouette is normal. Mild thoracic spondylosis with chronic mild anterior wedging of a couple lower t horacic vertebral bodies. IMPRESSION: 1. Interval resolution of prior pneumonia. No current acute cardiopulmonary disease. Reviewed, dictated and finalized at location L. IMPRESSION: 1. Interval resolution of prior pneumonia. No current acute cardiopulmonary dis ease.
== END 2023-07-15 13:31 ==
PROVIDERS: PCP Nurse Practitioner Adult Health; Visit Provider Nurse Practitioner Adult Health
DX: J18.9 Pneumonia, unspecified organism (principal)
CPT/HCPCS: 71046

== ENCOUNTER 2024-01-01 11:45 | Emergency (ER) | payer OTHER, SELFPAY ==
[2024-01-01] VITALS (39 sets, daily range): BP systolic 118–141; BP diastolic 53–69; PULSE 86–101; RESP 16–36; TEMP 36.6–37.6; O2SAT 93–100
--- NOTE | ~2024-01-01 | CT_ITS ---
EXAMINATION: CT abdomen pelvis w con DATE: 01/01/2024 13:32 INDICATION: Right lower quadrant pain TECHNIQUE: Computed tomography (CT) of the abdomen and pelvis was performed with 100 cc Omnipaque 350 intravenous contrast. The dose-length product was 637.84 mGy-cm. Automated exposure control and iter ative reconstruction technique were employed. COMPARISON: CT dated 06/29/2023. FINDINGS: Lung bases unremarkable. No significant pleural or pericardial effusion. Fatty infiltration of the liver. Gallstones. The spleen, pancreas, adrenal glands are unremarkable. There is a right re nal cyst. There are left renal cysts. Stable indeterminate 11 mm left renal mass laterally. There is focal scarring of the left kidney posteriorly. There is abnormal thickening of the ascending colon, c onsistent with colitis. There is atherosclerosis of the aorta without evidence for aneurysm. The appe ndix is not positively visualized. There is no pericecal inflammatory change to suggest appendicitis . No free air or free fluid. Colonic diverticulosis without evidence for diverticulitis. Moderate lum bar spondylosis. IMPRESSION: 1. Abnormal thickening of the ascending colon, consistent with colitis, most likely infectious or inf lammatory. No obstruction. 2: Cholelithiasis. 3: Stable indeterminate left upper pole renal mass, likely complicated cysts. Reviewed, dictated and finalized at location B. IMPRESSION: 1. Abnormal thickening of the ascending colon, consistent with colitis, most li franny infectious or inflammatory. No obstruction. 2: Cholelithiasis. 3: Stable indeterminate left upper pole renal mass, likely complicated cysts.
--- NOTE | 2024-01-01 12:07 | ED.ABDPAIN ---
HPI - Abdominal Pain General Chief Complaint: Abdominal Pain Stated Complaint: abd pain Time Seen by Provider: 01/01/24 11:48 History of Present Illness HPI narrative: [age] old male presents to the emergency department for evaluation for abdominal pain. Patient reports Wednesday night he began having some nausea and vomiting. Patient had some diarrhea on Wednesday. Patient states he has not had much to eat since Wednesday has had a slowing of the diarrhea but is still passing flatus. Describes pain that is worse in the right lower quadrant. Patient does have a prior history of appendectomy. Patient also has history of rheumatoid arthritis. Patient does have history of iron deficiency anemia but is not taking any iron. Patient denies any prior history of GI bleed. Related Data Home Medications Medication Instructions Recorded Confirmed hydrocodone 7.5 mg-acetaminophen 1 tablet PO Q6H PRN Pain 06/28/23 12/29/23 325 mg tablet leflunomide 10 mg tablet 10 mg PO DAILY 06/28/23 12/29/23 ascorbic acid (vitamin C) 1,000 mg 1 g PO DAILY 12/29/23 12/29/23 capsule cholecalciferol (vitamin D3) 25 25 mcg PO DAILY 12/29/23 12/29/23 mcg (1,000 unit) capsule cyanocobalamin (vitamin B-12) 1,000 mcg PO DAILY 12/29/23 12/29/23 1,000 mcg capsule Allergies Allergy/AdvReac Type Severity Reaction Status Date / Time heparin AdvReac Unknown Other Verified 12/29/23 14:26 Review of Systems Review of Systems: All systems reviewed & are unremarkable except as noted in HPI and below PMFSH Past Medical History Medical History Anemia Chronic pain syndrome Related to RA. Hypokalemia Hypothyroidism Immunocompromised state due to drug therapy Iron deficiency Rheumatoid arthritis Surgical History Surgical History History of appendectomy Family History Family History Father Family history of malignant neoplasm Family history of diabetes mellitus in first degree relative Colon cancer Grandparent Family history of coronary artery disease Mother Acute myocardial infarction History of blood clots Grandparent Acute myocardial infarction Mother No problems noted. Sibling History of blood clots Sibling History of blood clots Sibling History of blood clots Social History Social History Social History: Surrogate medical decision maker: Isaura Palacios, spouse. Code status: Full code. Smoking packs per day: 2 Smoking cigarettes per day: 40.0 Years smoked: 35 Smoking pack-years: 70.00 Smoking status: Former smoker Second hand tobacco smoke exposure: No Alcohol intake: never Substance use: never Substance use type: does not use Do You Feel Safe in your Home?: Yes Lack of Transportation: No Lack of Food: Never True Current Housing: I Have Housing Concerned About Future Housing: No Difficulty Paying Gas/Electric Bills: No Difficulty Paying for Meds: No Currently Unemployed: No Education: High School Diploma/GED Difficulty w/ Childcare or Family Care: No Additional living arrangements comments: Lives with spouse and family in [place]. 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 Spiritual care concerns: No Exam Narrative: APPEARANCE: Pale-appearing HEAD: normocephalic, atraumatic. EYES: PERRLA/EOMI, conjunctivae clear. NOSE: Normal no drainage EARS:TMS clear with good light reflex. THROAT: Pharynx clear, no exudate. NECK: Supple. No adenopathy, no masses. RESPIRATORY: Airway patent, respirations nonlabored. Clear to auscultation bilaterally, no rales, rhonchi, wheezing. CARDIOVASCULAR: Regular rate and rhythm without murmurs rubs or gallops. ABDOMINAL: Diffuse abdominal tenderness with rebound MUSCULOSKELET
[2024-01-01] MEDS: HYDROmorphone HCL INJ (*CRX) 1 MG/ML SYR 0.5 MG IV PUSH ×2 (12:28→14:33)
[2024-01-01] MEDS: ONDANSETRON INJ 4 MG/2 ML VIAL IV PUSH (12:28)
[2024-01-01] MEDS: SODIUM CHLORIDE 0.9% IV 1,000 ML 999 ML IV CONT (12:29)
[2024-01-01 12:36] LABS: Immature Platelet Fraction Pct 4.4 % (0.9-11.2); Mean Corpuscular HGB Conc 32.8 g/dl (32-36); Mean Corpuscular Hemoglobin 28.9 pg (26-34); Mean Corpuscular Volume 88.2 fl (80-100); Platelet Count Result 44 k/mm3 (150-375); Red Blood Count 2.11 M/mm3 (4.6-6.20); Red Cell Distribution Width 22.5 % (11.5-14.5)
[2024-01-01 12:44] LABS: Alanine Aminotransferase 14 U/L (6-50); Albumin Level 3.6 g/dL (3.5-5.1); Alkaline Phosphatase 84 U/L (38-126); Anion Gap 12 mmol/L (4-12); Aspartate Amino Transferase 27 U/L (17-59); Bilirubin,Total 0.7 mg/dL (0.2-1.3); Blood Urea Nitrogen 20 mg/dL (9-20); Carbon Dioxide 21 mmol/L (22-30); Chloride 96 mmol/L (98-107); Estimated CRCL calculation 89 ml/min; Estimated Glomerular Filt Rate > 60; Glucose 98 mg/dL (65-110); Lipase 20 U/L (23-300); Sodium 129 mmol/L (137-145)
[2024-01-01 12:51] LABS: INR 1.2; Prothrombin Time 15.8 Seconds (11.1-14.7)
[2024-01-01 13:08] LABS: Hematocrit 18.6 % (42.0-52.0); Hemoglobin 6.1 g/dL (14.0-18.0)
[2024-01-01 13:32] LABS: Band Neutrophils Percent 7 % (0-6); Eosinophils Absolute Manual 0.02 K/mm3 (0.02-0.50); Eosinophils Percent Manual 1 % (0-4); Lymphocytes Absolute Manual 0.74 K/mm3 (1.1-4.5); Lymphocytes Percent Manual 37 % (18-44); Monocytes Absolute Manual 0.14 K/mm3 (0.1-0.90); Monocytes Percent Manual 7 % (3-9); Neutrophils Percent Manual 48 % (46-73)
[2024-01-01 13:33] LABS: Anisocytosis 1+; Hypochromasia 2+; Platelet Estimate Decreased (Adequate); Schistocytes None Seen
[2024-01-01 13:56] LABS: Reticulocyte Hemoglobin Conten 28.3 pg (28.2-36.6); Reticulocyte Percent 0.79 % (0.7-4.3); Reticulocytes Absolute 0.01 10^6/uL (0.02-0.10)
[2024-01-01 14:07] LABS: Iron 31 ug/dL (49-181); Lactate Dehydrogenase 315 U/L (120-246)
[2024-01-01 14:17] LABS: Percent Iron Saturation 15 % (20-50)
[2024-01-01 15:17] LABS: Folic Acid > 20.0 ng/mL (2.76->20); Vitamin B12 > 1000.0 pg/mL (239-931)
[2024-01-01] MEDS: TUBING, BLOOD SET 1 EACH XX (17:11)
[2024-01-01] MEDS: SODIUM CHLORIDE 0.9% IV 250 ML 30 ML IV CONT (17:12)
[2024-01-01] MEDS: AMOXICILLIN/CLAVULANATE K 875-125 MG TAB 1 TABLET PO (17:44)
--- NOTE | 2024-01-01 19:45 | PC.NURSE ---
Report received from JACKSON Patrick. Assumed care of patient at this time. Patient getting blood transfusion at this time.
== END 2024-01-01 20:00 | disposition home or self-care (01) ==
PROVIDERS: Emergency Provider Emergency Medicine; PCP Nurse Practitioner Adult Health
DX: D64.9 Anemia, unspecified (principal); K52.9 Noninfective gastroenteritis and colitis, unspecified; E03.9 Hypothyroidism, unspecified; M06.9 Rheumatoid arthritis, unspecified
CPT/HCPCS: 36415; 36430; 74177; 80053; 82607; 82728; 82746; 83540; 83550; 83605; 83615; 83690; 85025; 85046; 85055; 85610; 85730; 86850; 86900; 86901; 86923; 96361; 96374; 96375; 99285; A9270; J1170; J2405; J7030; J7050; P9016; Q9967

== ENCOUNTER 2024-02-17 11:22 | Inpatient (IN) | payer OTHER, SELFPAY ==
[2024-02-17] VITALS (10 sets, daily range): BP systolic 99–120; BP diastolic 50–66; PULSE 87–98; RESP 16–21; TEMP 36–36.7; O2SAT 100; BMI 29.8
--- NOTE | ~2024-02-17 | BM_ITS ---
EXAMINATION: CCL bone marrow asp w bx diag ORDER COMPLETED DATE: 02/18/2024 13:35 INDICATION: Pancytopenia TECHNIQUE: A time-out was performed to verify the patient's name, date of , and procedure to b e performed. The procedure including the risks and benefits was discussed with the patient. Risks dis cussed included bleeding, infection, nerve injury and allergic reaction. The patient understood the r isks and agreed to proceed. The skin overlying the right posterior iliac spine was prepped and draped in usual sterile fashion. Anesthetic was administered with 1% lidocaine subcutaneously. Moderate co nscious sedation was achieved with 50 mcg fentanyl IV. An 11 gauge needle was inserted into the right ilium with fluoroscopic guidance. Bone marrow was aspirated. An 8 gauge needle was then inserted int o the right ilium with fluoroscopic guidance. A core bone marrow biopsy was obtained. The needle was removed and the entry site was cleaned and dressed. There were no immediate complications. A total o f 9 fluoroscopic images were recorded. Fluoroscopy exposure time was 0.1 minutes. Total DAP was 60.1 mGycm^2 FINDINGS: Real-time fluoroscopy demonstrates the biopsy needle tip overlying the right posterior aicha c spine. IMPRESSION: 1. Successful fluoroscopic guided bone marrow aspiration. 2. Successful fluoroscopic guided bone marrow biopsy. Reviewed, dictated and finalized at location A.
[2024-02-17 11:49] LABS: Basophils Percent Auto 0.6 % (0.2-1.2); Eosinophils Percent Auto 1.7 % (0-4.4); Immature Platelet Fraction Pct 6.3 % (0.9-11.2); Lymphocytes Percent Auto 78.2 % (18.3-44.2); Mean Corpuscular HGB Conc 31.1 g/dl (32-36); Monocytes Absolute Auto 0.1 K/mm3 (0.1-0.6); Monocytes Percent Auto 4.5 % (2.6-8.5); Neutrophils Absolute Auto 0.3 K/mm3 (1.3-6.7); Nucleated Red Blood Cells Perc 2.2 % (0.0-0.2); Platelet Count Result 30 k/mm3 (150-375); Red Blood Count 2.11 M/mm3 (4.6-6.20); Red Cell Distribution Width 22.5 % (11.5-14.5)
[2024-02-17 11:56] LABS: Hemoglobin 5.9 g/dL (14.0-18.0); White Blood Count 1.8 K/mm3 (4.5-10.0)
[2024-02-17 11:57] LABS: Alanine Aminotransferase 11 U/L (6-50); Albumin Level 4.1 g/dL (3.5-5.1); Alkaline Phosphatase 111 U/L (38-126); Anion Gap 11 mmol/L (4-12); Aspartate Amino Transferase 24 U/L (17-59); Bilirubin,Total 0.8 mg/dL (0.2-1.3); Blood Urea Nitrogen 18 mg/dL (9-20); Calcium 9.7 mg/dL (8.4-10.2); Carbon Dioxide 22 mmol/L (22-30); Chloride 101 mmol/L (98-107); Estimated CRCL calculation 71 ml/min; Estimated Glomerular Filt Rate > 60; Glucose 96 mg/dL (65-110); Potassium 4.3 mmol/L (3.4-5.0); Sodium 134 mmol/L (137-145)
[2024-02-17 11:59] LABS: INR 1.3; Partial Thromboplastin Time 28.6 Seconds (22.3-36.8); Prothrombin Time 16.4 Seconds (11.1-14.7)
--- NOTE | 2024-02-17 12:23 | ED_ITS ---
HPI - Recheck/Abnormal Lab/Rx General Chief Complaint: Recheck/Abnormal Lab/Rx Stated Complaint: lab recheck Time Seen by Provider: 02/17/24 11:56 Source: patient and family Mode of arrival: ambulatory Limitations: no limitations History of Present Illness HPI narrative: Patient is being followed by heme/onc Dr Tomlin. He was seen yesterday and outpatient labs were ordered. These were performed today and patient was called, informed to present to the ED for low hemoglobin. He does take over the counter iron supplementation daily. Supposed to undergo bone marrow biopsy 02/24/24 at 9 am per paperwork he has with him but he states he was told this may happen today. Denies hematuria, hematemesis, trauma, hemoptysis, hematochezia/melena. Patient states his PCP is Yaya Galindo although he sees the [facility]. Does not follow with a rigger third. Hx of anemia requiring blood transfusion in December 2023. States he has chronic arthritis pain but denies any other pain/symptoms. He does note that he had weight loss during the last hospitalization due to hospital food. Patient denies fevers. Related Data Home Medications Medication Instructions Recorded Confirmed hydrocodone 7.5 mg-acetaminophen 1 tablet PO Q6H PRN Pain 06/28/23 02/17/24 325 mg tablet ascorbic acid (vitamin C) 1,000 mg 1 g PO DAILY 12/29/23 02/17/24 capsule cholecalciferol (vitamin D3) 25 400 unit PO DAILY 12/29/23 02/17/24 mcg (1,000 unit) capsule ferrous sulfate 325 mg (65 mg 325 mg PO BID 02/17/24 02/17/24 iron) tablet,delayed release levofloxacin 500 mg tablet 500 mg PO DAILY 02/17/24 02/17/24 levothyroxine 75 mcg capsule 75 mcg PO DAILY 02/17/24 02/17/24 Allergies Allergy/AdvReac Type Severity Reaction Status Date / Time heparin AdvReac Unknown Other Verified 12/29/23 14:26 [facility] Past Medical History Medical History (Updated 02/17/24 @ 23:07 by Bre Scott MD) Anemia Chronic pain syndrome Related to RA. Heart failure with reduced ejection fraction echo in 06/2023 showed dilated cardiomyopathy with an EF of 30 to 35% Hypothyroidism Immunocompromised state due to drug therapy Iron deficiency Pancytopenia Paroxysmal atrial fibrillation Rheumatoid arthritis Surgical History Surgical History History of appendectomy Family History Family History Father Family history of malignant neoplasm Family history of diabetes mellitus in first degree relative Colon cancer Grandparent Family history of coronary artery disease Mother Acute myocardial infarction History of blood clots Grandparent Acute myocardial infarction Mother No problems noted. Sibling History of blood clots Sibling History of blood clots Sibling History of blood clots Social History Social History Social History: Surrogate medical decision maker: Isauraesme Palacios, spouse. Code status: Full code. Smoking packs per day: 2 Smoking cigarettes per day: 40.0 Years smoked: 35 Smoking pack-years: 70.00 Smoking status: Former smoker Tobacco type: cigarettes Second hand tobacco smoke exposure: No Alcohol intake: never Substance use: never Substance use type: does not use Do You Feel Safe in your Home?: Yes Lack of Transportation: No Lack of Food: Never True Current Housing: I Have Housing Concerned About Future Housing: No Difficulty Paying Gas/Electric Bills: No Difficulty Paying for Meds: No Currently Unemployed: No Education: High School Diploma/GED Difficulty w/ Childcare or Family Care: No Additional living arrangements comments: Lives with spouse and family in [place]. 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 Spiritual care concerns: No Exam Narrative: GENERAL: Chronically ill appearing though well-nourished, and in no acute distress. Pale. HEAD: Normocephalic, atraumatic. EYES: Non injected, non icteric. Conjunctival pallor. ENT: Nares clear, no rhinorrhea or epistaxis. NECK: Supple. CHEST: Speaking in full sentences. No respiratory distress. HEART: Regular rate and rhythm. . ABDOMEN: Soft, nondistended. EXTREMITIES: Normal range of motion. No lower extremity edema. SKIN: Warm, dry, no rash. NEURO: No focal deficits. Alert and oriented x3. PSYCH: Normal mood and affect. Course Vital Signs Vital signs: Vital Signs Temperature 97.8 F 02/17/24 11:29 Pulse Rate 98 02/17/24 11:29 Respiratory Rate 20 02/17/24 11:29 Blood Pressure 120/66 02/17/24 11:29 Pulse Oximetry 100 02/17/24 11:29 Oxygen Delivery Room Air 02/17/24 11:29 Temperature 97.8 F 02/17/24 20:19 Pulse Rate 93 02/17/24 20:19 Respiratory Rate 18 02/17/24 20:19 Blood Pressure 109/61 02/17/24 20:19 Pulse Oximetry 100 02/17/24 20:19 Oxygen Delivery Room Air 02/17/24 20:00 MDM - Recheck/Abnormal Lab/Rx MDM Narrative Medical decision making narrative: Patient presents with report of abnormal labs, particularly low hemoglobin. In the ED he is afebrile with VS within normal limits. Patient has pancytopenia, chronic to some degree. Hemoglobin is 5.9. It was 6.1 on 01/01/2024 at which time he had received a blood transfusion (x2 units per family member). At that time, he had had FOBT/rectal exam performed and CT imaging which were both negative; for this reason, will defer repeating. No other obvious blood loss and this appears to be more concerning for hematologic/oncologic etiologies. Patient consented for 2 U blood after discussion of risks/benefits. Discussed with Dr Tomlin who recommends admitting for the blood transfusion as well as electrophroresis (given concern for multiple myeloma) and bone marrow biopsy. Recommends patient be on Levaquin 500mg daily given neutropenic, though with WBC 1.9 and not febrile. First dose ordered in the ED with daily scheduled doses ordered. Discussed with CLERK TYPIST Hospitalist Jaclyn who concurs/accepts admission. Repeat H/H ordered. Lab Data 02/17/24 11:40 02/17/24 11:40 Labs: Lab Results 02/17/24 Range/Units 11:40 WBC 1.8 L* (4.5-10.0) K/mm3 RBC 2.11 L (4.6-6.20) M/mm3 Hgb 5.9 L* (14.0-18.0) g/dL Hct 19.0 L* (42.0-52.0) % MCV 90.0 (80-100) fl MCH 28.0 (26-34) pg MCHC 31.1 L (32-36) g/dl RDW 22.5 H (11.5-14.5) % Plt Count 30 L (150-375) k/mm3 MPV TNP Immature Gran % (Auto) 0.0 (0-0.5) % Neut % (Auto) 15.0 L (45.5-73.1) % Lymph % (Auto) 78.2 H (18.3-44.2) % Hudspeth % (Auto) 4.5 (2.6-8.5) % Eos % (Auto) 1.7 (0-4.4) % Baso % (Auto) 0.6 (0.2-1.2) % Lymph # (Auto) 1.40 (0.9-3.2) K/mm3 Hudspeth # (Auto) 0.1 (0.1-0.6) K/mm3 Eos # (Auto) 0.0 (0-0.3) K/mm3 Baso # (Auto) 0.0 (0.0-0.1) K/mm3 Abs Immat Gran (auto) 0.00 (0.00-0.031) K/mm3 Absolute Neuts (auto) 0.3 L (1.3-6.7) K/mm3 Absolute Nucleated RBC 0.040 H (0.0-0.012) K/mm3 Nucleated RBC % 2.2 H (0.0-0.2) % % Immature Plt Fraction 6.3 (0.9-11.2) % PT 16.4 H (11.1-14.7) Seconds INR 1.3 APTT 28.6 (22.3-36.8) Seconds Sodium 134 L (137-145) mmol/L Potassium 4.3 (3.4-5.0) mmol/L Chloride 101 (98-107) mmol/L Carbon Dioxide 22 (22-30) mmol/L Anion Gap 11 (4-12) mmol/L BUN 18 (9-20) mg/dL Creatinine 1.00 (0.7-1.3) mg/dL Estim Creat Clear Calc 71 ml/min Estimated GFR > 60 (59 - ) Glucose 96 (65-110) mg/dL Calcium 9.7 (8.4-10.2) mg/dL Total Bilirubin 0.8 (0.2-1.3) mg/dL AST 24 (17-59) U/L ALT 11 (6-50) U/L Alkaline Phosphatase 111 (38-126) U/L Total Protein 10.0 H (6.3-8.2) g/dL Albumin 4.1 (3.5-5.1) g/dL Blood Type A Positive Antibody Screen Negative Crossmatch See Detail Discharge Plan Discharge Clinical Impression: Pancytopenia, Blood transfusion during current hospitalisation, Normocytic anemia Patient Disposition: Still a Patient Condition: Stable
[2024-02-17] MEDS: SODIUM CHLORIDE 0.9% IV 250 ML 30 ML IV CONT (13:00)
[2024-02-17] MEDS: TUBING, BLOOD PLUM PUMP TUBING 1 EACH XX (13:00)
[2024-02-17] MEDS: levoFLOXacin 500 MG TABLET PO (13:10)
--- NOTE | 2024-02-17 13:45 | PM.IMHP ---
H&P: HPI History of Present Illness Date/Time: 02/17/24 14:45 Chief Complaint: Low hemoglobin. Narrative: This is a very pleasant 63-year-old male with rheumatoid arthritis on leflunomide, paroxysmal atrial fibrillation/flutter not on long-term anticoagulation due to low [id number], dilated cardiomyopathy with an ejection fraction of 30 to 35 % on echo in June 2023, and hypothyroidism who presented to the emergency department after labs showed a low hemoglobin. The patient is known to myself and the hospitalist service from an admission in June at which time he was admitted with hypoxia and pneumonia related to influenza complicated by atrial fibrillation/flutter with rapid ventricular response. He was pancytopenic at that time with positive platelet antibodies and a positive ELEANOR and leflunomide was discontinued due to possible drug-induced thrombocytopenia. Leflunomide was resumed and he has been taking that daily up until last Wednesday. In anticipation of an upcoming appoint with Dr. Tomlin, he had lab work drawn and was told to go to the ED after he was found to have a hemoglobin and hematocrit of 5.9 and 19% respectively. With further questioning he admits that he has been increasingly weak and fatigued over the last several weeks and is getting short of breath with minimal exertion. He denies syncope, near syncope, hematemesis, melena, hematochezia, chest pain, and rash. In the ED: He was afebrile on arrival with stable vital signs. Labs are significant for a WBC count of 1.8, RBC count 2.11, hemoglobin 5.9, hematocrit 19%, platelet 30, PT 16.4, INR 1.3, sodium 134. He is being admitted in this setting for blood transfusion and bone marrow biopsy. Review of Systems Review of Systems: 12 systems were reviewed and are negative except for as per HPI. COUNTS INCLUDE 234 BEDS AT THE [facility] Past Medical History Medical History (Updated 02/17/24 @ 22:21 by Jaclyn Gomez PA-C) Chronic pain syndrome Related to RA. Heart failure with reduced ejection fraction echo in 06/2023 showed dilated cardiomyopathy with an EF of 30 to 35% Hypothyroidism Immunocompromised state due to drug therapy Iron deficiency Pancytopenia Paroxysmal atrial fibrillation Rheumatoid arthritis Surgical History Surgical History History of appendectomy Family History Family History Father Family history of malignant neoplasm Family history of diabetes mellitus in first degree relative Colon cancer Grandparent Family history of coronary artery disease Mother Acute myocardial infarction History of blood clots Grandparent Acute myocardial infarction Mother No problems noted. Sibling History of blood clots Sibling History of blood clots Sibling History of blood clots Social History Social History Social History: Surrogate medical decision maker: Isaura Palacios, spouse. Code status: Full code. Smoking packs per day: 2 Smoking cigarettes per day: 40.0 Years smoked: 35 Smoking pack-years: 70.00 Smoking status: Former smoker Tobacco type: cigarettes Second hand tobacco smoke exposure: No Alcohol intake: never Substance use: never Substance use type: does not use Do You Feel Safe in your Home?: Yes Lack of Transportation: No Lack of Food: Never True Current Housing: I Have Housing Concerned About Future Housing: No Difficulty Paying Gas/Electric Bills: No Difficulty Paying for Meds: No Currently Unemployed: No Education: High School Diploma/GED Difficulty w/ Childcare or Family Care: No Additional living arrangements comments: Lives with spouse and family in [place]. 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 Spiritual care concerns: No Meds Home Medications and Allergies Home Medications Medication Instructions Recorded Confirmed Type hydrocodone 7.5 mg-acetaminophen 1 tablet PO Q6H PRN Pain 06/28/23 02/17/24 History 325 mg tablet empagliflozin 10 mg tablet 10 mg PO DAILY #30 tabs 07/03/23 02/17/24 Rx metoprolol succinate 50 mg 50 mg PO QAM #30 tabs 07/03/23 02/17/24 Rx tablet,extended release 24 hr sacubitril 24 mg-valsartan 26 mg 1 tab PO Q12HR #60 tabs 07/03/23 02/17/24 Rx tablet (Entresto) spironolactone 25 mg tablet 25 mg PO QAM #30 tabs 07/03/23 02/17/24 Rx ascorbic acid (vitamin C) 1,000 mg 1 g PO DAILY 12/29/23 02/17/24 History capsule cholecalciferol (vitamin D3) 25 400 unit PO DAILY 12/29/23 02/17/24 History mcg (1,000 unit) capsule ferrous sulfate 325 mg (65 mg 325 mg PO BID 02/17/24 02/17/24 History iron) tablet,delayed release levofloxacin 500 mg tablet 500 mg PO DAILY 02/17/24 02/17/24 History levothyroxine 75 mcg capsule 75 mcg PO DAILY 02/17/24 02/17/24 History Allergies Allergy/AdvReac Type Severity Reaction Status Date / Time heparin AdvReac Unknown Other Verified 12/29/23 14:26 Vital Signs Vital Signs - 24 hr 02/17/24 11:29 02/17/24 13:02 02/17/24 13:17 Temperature 97.8 F 97.9 F 97.7 F Pulse Rate 98 89 87 Respiratory Rate 20 20 21 H Blood Pressure 120/66 108/59 L 114/63 Pulse Oximetry 100 100 100 Oxygen Delivery Room Air Exam Narrative: General: Mildly ill-appearing male in the semi-Chadwick position in bed. Weight: 89 kg. BMI: 29.8. HEENT: PERRL, EOMI. Sclera anicteric. Pale conjunctiva. Moist mucous membranes. Neck: Supple. No JVD. Respiratory: Respirations are nonlabored and lungs are clear to auscultation. Cardiovascular: Regular rate and rhythm with S1-S2. Gastrointestinal: Abdomen is soft, nontender, and nondistended with positive bowel sounds. Skin: Warm and dry. Generalized pallor. Extremities: No cyanosis, clubbing, or edema. Peripheral pulses intact. Neurological: Alert. Cranial nerves 2-12 are grossly intact. No gross focal deficits to casual conversation. Psychiatric: Pleasant and cooperative with normal mood and affect. Judgment and insight intact. H&P: Results Labs Labs: Short CBC 02/17/24 Range/Units 11:40 WBC 1.8 L* (4.5-10.0) K/mm3 Hgb 5.9 L* (14.0-18.0) g/dL Hct 19.0 L* (42.0-52.0) % Plt Count 30 L (150-375) k/mm3 BMP 02/17/24 11:40 Sodium 134 L Potassium 4.3 Chloride 101 Carbon Dioxide 22 BUN 18 Creatinine 1.00 Glucose 96 Calcium 9.7 Liver Function 02/17/24 Range/Units 11:40 Total Bilirubin 0.8 (0.2-1.3) mg/dL AST 24 (17-59) U/L ALT 11 (6-50) U/L Alkaline Phosphatase 111 (38-126) U/L Albumin 4.1 (3.5-5.1) g/dL Assessment and Plan Assessment and plan (1) Symptomatic anemia: Code(s): D64.9 - Anemia, unspecified Status: Acute (2) Pancytopenia: Code(s): D61.818 - Other pancytopenia Status: Acute (3) Heart failure with reduced ejection fraction: Code(s): I50.20 - Unspecified systolic (congestive) heart failure Status: Acute (4) Paroxysmal atrial fibrillation: Code(s): I48.0 - Paroxysmal atrial fibrillation Status: Acute (5) Rheumatoid arthritis: Qualifiers: Rheumatoid arthritis location: unspecified site Rheumatoid factor presence: with rheumatoid factor Qualified Code(s): M05.9 - Rheumatoid arthritis with rheumatoid factor, unspecified Code(s): M06.9 - Rheumatoid arthritis, unspecified Status: Acute (6) Hypothyroidism: Code(s): E03.9 - Hypothyroidism, unspecified Status: Acute Plan The patient presented to the emergency department at the direction of Dr. Tomlin after he was found to have a hemoglobin of 5.9 as detailed in HPI. Labs, imaging, EKG, and all reports were personally reviewed. All cell lines are low and he was following up with Dr. Tomlin today for evaluation of pancytopenia. He will be transfused with stable hemoglobin. Bone marrow biopsy ordered. Continue levofloxacin given neutropenia. He is euvolemic and volume status will be monitored closely while transfusing. He may need a dose of furosemide between and/or after units. He currently sounds to be in a normal sinus rhythm. Blood pressures have been running at the lower end of normal and will be monitored. His medications will be reviewed and resumed as appropriate. Findings and treatment plan were discussed with the patient. Questions were solicited and answered to satisfaction. The patient's medical management will be taken over by the hospitalist team in a.m. Quality VTE Prophylaxis VTE prophylaxis: mechanical ordered If No VTE Prophylaxis Answer both mechanical and pharmacologic: Reason no pharmacologic proph: medical contraindication thrombocytopenia The patient has been admitted under observation status. Hospitalist [facility] Advance Care Plan I have confirmed that the patient's Advanced Care Plan is present, code status is documented, or surrogate decision maker is listed in patient medical record.: Yes Medication Reconciliation I have utilized all available resources to obtain, update and review the patients current medications (includes all prescriptions, OTC, herbals, cannabis, and nutritional supplements).: Yes
--- NOTE | 2024-02-17 14:40 | PC.NURSE ---
This patient, Taiwo Palacios Sr., was admitted to Medical Room 341-01. Patient/family oriented to hospital policies and general routines including ID bracelet, bed and alarms, visiting hours, pain management, procedures, bathroom and other care routines, personal items, smoking policy, room service/diet, and visiting hours. Information on how to activate the Rapid Response Team has been discussed. Patient/Family are encouraged to report perceived risks to care and to ask questions if they do not understand what they are told or what they should do.
[2024-02-17] MEDS: SODIUM CHLORIDE 0.9% IV 250 ML 30 ML (16:19)
[2024-02-17] MEDS: FERROUS SULFATE 325 MG TABLET DR PO (17:21)
[2024-02-17] MEDS: SACUBITRIL/VALSARTAN 24-26 MG TABLET 1 TAB PO (20:14)
[2024-02-18] VITALS (7 sets, daily range): BP systolic 101–130; BP diastolic 53–74; PULSE 69–92; RESP 16–20; TEMP 36.4–36.7; O2SAT 97–100
[2024-02-18 00:47] LABS: Hematocrit 22.5 % (42.0-52.0); Hemoglobin 7.4 g/dL (14.0-18.0)
[2024-02-18] MEDS: LEVOTHYROXINE SODIUM 75 MCG TABLET PO (05:48)
[2024-02-18 06:02] LABS: Hematocrit 22.7 % (42.0-52.0); Hemoglobin 7.4 g/dL (14.0-18.0); Immature Platelet Fraction Pct 5.4 % (0.9-11.2); Mean Corpuscular HGB Conc 32.6 g/dl (32-36); Mean Corpuscular Hemoglobin 27.9 pg (26-34); Mean Corpuscular Volume 85.7 fl (80-100); Red Blood Count 2.65 M/mm3 (4.6-6.20); Red Cell Distribution Width 19.8 % (11.5-14.5)
[2024-02-18 06:20] LABS: Anion Gap 8 mmol/L (4-12); Blood Urea Nitrogen 18 mg/dL (9-20); Calcium 9.3 mg/dL (8.4-10.2); Carbon Dioxide 21 mmol/L (22-30); Chloride 102 mmol/L (98-107); Estimated CRCL calculation 88 ml/min; Estimated Glomerular Filt Rate > 60; Glucose 93 mg/dL (65-110); Potassium 4.1 mmol/L (3.4-5.0); Sodium 131 mmol/L (137-145)
[2024-02-18 06:40] LABS: Platelet Count Result 23 k/mm3 (150-375); White Blood Count 1.6 K/mm3 (4.5-10.0)
[2024-02-18 08:03] LABS: Glucose Point of Care 95 mg/dl (65-105)
[2024-02-18] MEDS: SPIRONOLACTONE 25 MG TABLET PO (08:18)
[2024-02-18] MEDS: SACUBITRIL/VALSARTAN 24-26 MG TABLET 1 TAB PO ×2 (08:18→20:31)
[2024-02-18] MEDS: METOPROLOL SUCCINATE EXT REL 50 MG TABCR PO (08:18)
[2024-02-18] MEDS: EMPAGLIFLOZIN 10 MG TABLET PO (08:18)
[2024-02-18] MEDS: levoFLOXacin 500 MG TABLET PO (08:18)
[2024-02-18] MEDS: HYDROcodone/acetaminophen (*CRX) 7.5-325 MG TABLET 1 TAB PO ×2 (08:21→20:31)
--- NOTE | 2024-02-18 10:10 | PC.NURSE ---
Patient to laborer operator for bone marrow biopsy per bed.
--- NOTE | 2024-02-18 10:55 | P.SEDATION_ITS ---
Moderate Sedation Note-Pt Data Patient Data Diagnosis: pancytopenia Present Complaint: pancytopenia Procedure to be performed/Plan: bone marrow biopsy Allergies Allergy/AdvReac Type Severity Reaction Status Date / Time heparin AdvReac Unknown Other Verified 12/29/23 14:26 Home Medications Medication Instructions Recorded Confirmed Type hydrocodone 7.5 mg-acetaminophen 1 tablet PO Q6H PRN Pain 06/28/23 02/17/24 History 325 mg tablet empagliflozin 10 mg tablet 10 mg PO DAILY #30 tabs 07/03/23 02/17/24 Rx metoprolol succinate 50 mg 50 mg PO QAM #30 tabs 07/03/23 02/17/24 Rx tablet,extended release 24 hr sacubitril 24 mg-valsartan 26 mg 1 tab PO Q12HR #60 tabs 07/03/23 02/17/24 Rx tablet (Entresto) spironolactone 25 mg tablet 25 mg PO QAM #30 tabs 07/03/23 02/17/24 Rx ascorbic acid (vitamin C) 1,000 mg 1 g PO DAILY 12/29/23 02/17/24 History capsule cholecalciferol (vitamin D3) 25 400 unit PO DAILY 12/29/23 02/17/24 History mcg (1,000 unit) capsule ferrous sulfate 325 mg (65 mg 325 mg PO BID 02/17/24 02/17/24 History iron) tablet,delayed release levofloxacin 500 mg tablet 500 mg PO DAILY 02/17/24 02/17/24 History levothyroxine 75 mcg capsule 75 mcg PO DAILY 02/17/24 02/17/24 History Current Medications: Active Medications Acetaminophen (Acetaminophen 325 Mg Tablet) 650 mg PO Q4H PRN PRN Reason: Mild Pain (1-3) or Fever Hydrocodone Bitart/Acetaminophen (Hydrocodone/Acetaminophen (*Crx) 7.5-325 Mg Tablet) 1 tab PO Q6H PRN PRN Reason: Pain Rated 4-6 Last Admin: 02/18/24 08:21 Dose: 1 tab Empagliflozin (Empagliflozin 10 Mg Tablet) 10 mg PO DAILY [facility] Last Admin: 02/18/24 08:18 Dose: 10 mg Ferrous Sulfate (Ferrous Sulfate [address]) 325 mg PO 1200,1700 [facility] Last Admin: 02/17/24 17:21 Dose: 325 mg Levofloxacin (Levofloxacin 500 Mg Tablet) 500 mg PO DAILY [facility] Last Admin: 02/18/24 08:18 Dose: 500 mg Levothyroxine Sodium (Levothyroxine Sodium 75 Mcg Tablet) 75 mcg PO DAILY@0630 [facility] Last Admin: 02/18/24 05:48 Dose: 75 mcg Metoprolol Succinate (Metoprolol Succinate Ext Rel 50 Mg Tabcr) [facility] Last Admin: 02/18/24 08:18 Dose: 50 mg Morphine Sulfate (Morphine Sulfate (*Crx) 4 Mg/Ml Inj) 4 mg IV PUSH Q2H PRN PRN Reason: Pain Rated 7-10 Neomycin/Polymyxin/Bacitracin (Neomycin/Polymyxin/Bacitracin Ointment 15 Gm Tube) 1 applic TOPICAL PRN PRN PRN Reason: with dressing changes Ondansetron HCl (Ondansetron Inj 4 Mg/2 Ml Vial) 4 mg IV PUSH Q4H PRN PRN Reason: Nausea Sacubitril/Valsartan (Sacubitril/Valsartan 24-26 Mg Tablet) 1 tab PO Q12HR [facility] Last Admin: 02/18/24 08:18 Dose: 1 tab Spironolactone (Spironolactone 25 Mg Tablet) 25 mg PO QAM [facility] Last Admin: 02/18/24 08:18 Dose: 25 mg Sedation/Anesthesia: No previous sedation/anesthesia problems (including family history). [facility] Past Medical History Medical History (Updated 02/17/24 @ 23:07 by Bre Scott MD) Anemia Chronic pain syndrome Related to RA. Heart failure with reduced ejection fraction echo in 06/2023 showed dilated cardiomyopathy with an EF of 30 to 35% Hypothyroidism Immunocompromised state due to drug therapy Iron deficiency Pancytopenia Paroxysmal atrial fibrillation Rheumatoid arthritis Surgical History Surgical History History of appendectomy Family History Family History Father Family history of malignant neoplasm Family history of diabetes mellitus in first degree relative Colon cancer Grandparent Family history of coronary artery disease Mother Acute myocardial infarction History of blood clots Grandparent Acute myocardial infarction Mother No problems noted. Sibling History of blood clots Sibling History of blood clots Sibling History of blood clots Social History Social History Social History: Surrogate medical decision maker: Isaura Palacios, spouse. Code status: Full code. Smoking packs per day: 2 Smoking cigarettes per day: 40.0 Years smoked: 35 Smoking pack-years: 70.00 Smoking status: Former smoker Tobacco type: cigarettes Second hand tobacco smoke exposure: No Alcohol intake: never Substance use: never Substance use type: does not use Do You Feel Safe in your Home?: Yes Lack of Transportation: No Lack of Food: Never True Current Housing: I Have Housing Concerned About Future Housing: No Difficulty Paying Gas/Electric Bills: No Difficulty Paying for Meds: No Currently Unemployed: No Education: High School Diploma/GED Difficulty w/ Childcare or Family Care: No Additional living arrangements comments: Lives with spouse and family in [place]. 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 Spiritual care concerns: No Mod Sed Physical Exam Physical Exam Pre Procedural Exam: Normal: Appearance, Throat, Lungs, Heart Rate and Heart Rhy thm Hours since solid foods: 12 Hours since liquid intake: 12 Mallampati Classification: class III Internal Medicine - PN: Obj Da Vital Signs Vital Signs: Vital Signs - 24 hr 02/17/24 11:29 02/17/24 13:02 02/17/24 13:17 Temperature 97.8 F 97.9 F 97.7 F Pulse Rate 98 89 87 Respiratory Rate 20 20 21 H Blood Pressure 120/66 108/59 L 114/63 Pulse Oximetry 100 100 100 Oxygen Delivery Room Air Fraction of Inspired Oxygen 02/17/24 14:05 02/17/24 14:12 02/17/24 16:08 Temperature 97.7 F 97.7 F 96.8 F L Pulse Rate 92 92 87 Respiratory Rate 16 18 16 Blood Pressure 99/58 L 99/58 L 109/58 L Pulse Oximetry 100 100 100 Oxygen Delivery Fraction of Inspired Oxygen 02/17/24 16:29 02/17/24 17:29 02/17/24 18:32 Temperature 98.0 F 97.8 F 97.8 F Pulse Rate 89 90 94 Respiratory Rate 16 18 18 Blood Pressure 113/50 L 112/63 113/55 L Pulse Oximetry 100 100 100 Oxygen Delivery Fraction of Inspired Oxygen 02/17/24 20:19 02/17/24 20:00 02/18/24 04:46 Temperature 97.8 F 97.7 F Pulse Rate 93 92 Respiratory Rate 18 16 Blood Pressure 109/61 116/57 L Pulse Oximetry 100 98 Oxygen Delivery Room Air Fraction of Inspired Oxygen 02/18/24 07:29 02/18/24 08:23 Temperature Pulse Rate Respiratory Rate Blood Pressure Pulse Oximetry 99 Oxygen Delivery Room Air Room Air Fraction of Inspired Oxygen 21 Intake/Output Intake/Output: Intake & Output 02/15/24 02/16/24 02/17/24 02/18/24 23:59 23:59 23:59 23:59 Intake Total 1060 150 Output Total 1050 Balance 1060 -900 Meds/Results Medications: Active Medications Generic Name Dose Route Start Last Admin Trade Name Freq PRN Reason Stop Dose Admin Acetaminophen 650 mg 02/17/24 12:55 Acetaminophen 325 Mg Tablet PO Q4H PRN Mild Pain (1-3) or Fever Hydrocodone Bitart/Acetaminophen 1 tab 02/17/24 15:57 02/18/24 08:21 Hydrocodone/Acetaminophen (*Crx) 7.5-325 Mg Tablet PO 1 tab Q6H PRN Administration Pain Rated 4-6 Empagliflozin 10 mg 02/18/24 09:00 02/18/24 08:18 Empagliflozin 10 Mg Tablet PO 10 mg DAILY [facility] Administration Ferrous Sulfate 325 mg 02/17/24 17:00 02/17/24 17:21 Ferrous Sulfate [address] PO 325 mg 1200,1700 [facility] Administration Levofloxacin 500 mg 02/18/24 09:00 02/18/24 08:18 Levofloxacin 500 Mg Tablet PO 500 mg DAILY [facility] Administration Levothyroxine Sodium 75 mcg 02/18/24 06:30 02/18/24 05:48 Levothyroxine Sodium 75 Mcg Tablet PO 75 mcg DAILY@0630 [facility] Administration Metoprolol Succinate 50 mg 02/18/24 09:00 02/18/24 08:18 Metoprolol Succinate Ext Rel 50 Mg Tabcr PO 50 mg QAM [facility] Administration Morphine Sulfate 4 mg 02/17/24 12:55 Morphine Sulfate (*Crx) 4 Mg/Ml Inj IV PUSH Q2H PRN Pain Rated 7-10 Neomycin/Polymyxin/Bacitracin 1 applic 02/17/24 17:59 Neomycin/Polymyxin/Bacitracin Ointment 15 Gm Tube TOPICAL PRN PRN with dressing changes Ondansetron HCl 4 mg 02/17/24 12:55 Ondansetron Inj 4 Mg/2 Ml Vial IV PUSH Q4H PRN Nausea Sacubitril/Valsartan 1 tab 02/17/24 21:00 02/18/24 08:18 Sacubitril/Valsartan 24-26 Mg Tablet PO 1 tab Q12HR [facility] Administration Spironolactone 25 mg 02/18/24 09:00 02/18/24 08:18 Spironolactone 25 Mg Tablet PO 25 mg QAM [facility] Administration Labs 02/18/24 05:52 02/18/24 05:52 Labs: Laboratory Results - last 24 hr 02/17/24 02/18/24 02/18/24 11:40 00:33 05:52 WBC 1.8 L* 1.6 L* RBC 2.11 L 2.65 L Hgb 5.9 L* 7.4 L 7.4 L Hct 19.0 L* 22.5 L 22.7 L MCV 90.0 85.7 MCH 28.0 27.9 MCHC 31.1 L 32.6 RDW 22.5 H 19.8 H Plt Count 30 L 23 L* MPV TNP TNP Immature Gran % (Auto) 0.0 Neut % (Auto) 15.0 L Lymph % (Auto) 78.2 H [place] % (Auto) 4.5 Eos % (Auto) 1.7 Baso % (Auto) 0.6 Lymph # (Auto) 1.40 [place] # (Auto) 0.1 Eos # (Auto) 0.0 Baso # (Auto) 0.0 Abs Immat Gran (auto) 0.00 Absolute Neuts (auto) 0.3 L Absolute Nucleated RBC 0.040 H Nucleated RBC % 2.2 H % Immature Plt Fraction 6.3 5.4 PT 16.4 H INR 1.3 APTT 28.6 Sodium 134 L 131 L Potassium 4.3 4.1 Chloride 101 102 Carbon Dioxide 22 21 L Anion Gap 11 8 BUN 18 18 Creatinine 1.00 0.80 Estim Creat Clear Calc 71 88 Estimated GFR > 60 > 60 Glucose 96 93 POC Capillary Glucose Calcium 9.7 9.3 Magnesium 2.0 Total Bilirubin 0.8 AST 24 ALT 11 Alkaline Phosphatase 111 Total Protein 10.0 H Albumin 4.1 Blood Type A Positive Antibody Screen Negative Crossmatch See Detail 02/18/24 07:57 WBC RBC Hgb Hct MCV MCH MCHC RDW Plt Count MPV Immature Gran % (Auto) Neut % (Auto) Lymph % (Auto) [place] % (Auto) Eos % (Auto) Baso % (Auto) Lymph # (Auto) [place] # (Auto) Eos # (Auto) Baso # (Auto) Abs Immat Gran (auto) Absolute Neuts (auto) Absolute Nucleated RBC Nucleated RBC % % Immature Plt Fraction PT INR APTT Sodium Potassium Chloride Carbon Dioxide Anion Gap BUN Creatinine Estim Creat Clear Calc Estimated GFR Glucose POC Capillary Glucose 95 Calcium Magnesium Total Bilirubin AST ALT Alkaline Phosphatase Total Protein Albumin Blood Type Antibody Screen Crossmatch ASA Classification/Sedation ASA Classification/Sedation ASA Class: III Emergent: No Risks: Risks, benefits and alternatives explained and patient/family accepted plan for sedation. Patient re-evaluated immediately prior to sedation.
[2024-02-18] MEDS: FERROUS SULFATE 325 MG TABLET DR PO ×2 (12:19→16:16)
--- NOTE | 2024-02-18 15:26 | PM.IMPN ---
Progress Note: A&P Assessment and Plan (1) Pancytopenia: Code(s): D61.818 - Other pancytopenia Status: Acute (2) Paroxysmal atrial fibrillation: Code(s): I48.0 - Paroxysmal atrial fibrillation Status: Acute Plan 63-year-old male with rheumatoid arthritis on leflunomide, paroxysmal atrial fibrillation/flutter not on long-term anticoagulation due to low [id number], dilated cardiomyopathy with an ejection fraction of 30 to 35 % on echo in June 2023, and hypothyroidism who presented to the emergency department after labs showed a low hemoglobin. In anticipation of an upcoming appoint with Dr. Tomlin, he had lab work drawn and was told to go to the ED after he was found to have a hemoglobin and hematocrit of 5.9 and 19% respectively. 1. Pancytopenia: Status post 2 units of blood transfusion Status post bone marrow biopsy Await Hematology input Neutropenic precautions On levofloxacin prophylactically Platelet count 23,000, will transfuse for platelet less than 10,000 Watch for any spontaneous bleeding 2. Anxiety: Will start on fluoxetine Add small dose of Xanax t.i.d. p.r.n. Add trazodone p.r.n. for nighttime for insomnia 3. History of heart failure: Stable Continue with Entresto Continue with Aldactone Continue with Jardiance Continue with beta-issa 4. DVT prophylaxis: None patient is severely thrombocytopenic 5. Code status: Full 6. Disposition pending improvement Time Spent With Patient Time with patient: 15 - 25 minutes Subjective Date/time seen: 02/18/24 15:26 Interval history: No acute events overnight now, patient eager to go home Review of Systems Review of Systems: All systems reviewed & are unremarkable except as noted in HPI and below Exam Const: General: comfortable and no acute distress HENMT: Mouth: Yes moist mucous membranes Eyes: Sclera: sclerae normal Neck: Neck: supple Resp: Auscultation: clear to auscultation bilaterally Cardio: Rate: regular rate Rhythm: regular rhythm GI: GI Palp: Yes Soft to palpation Skin: General skin exam: normal color Neuro: Speech: normal speech Extrem: General: normal to inspection Psych: Mental Status: mental status grossly normal Objective Data Vital Signs Vital Signs: Vital Signs - 24 hr 02/17/24 16:08 02/17/24 16:29 02/17/24 17:29 Temperature 96.8 F L 98.0 F 97.8 F Pulse Rate 87 89 90 Respiratory Rate 16 16 18 Blood Pressure 109/58 L 113/50 L 112/63 Pulse Oximetry 100 100 100 Oxygen Delivery Fraction of Inspired Oxygen 02/17/24 18:32 02/17/24 20:19 02/17/24 20:00 Temperature 97.8 F 97.8 F Pulse Rate 94 93 Respiratory Rate 18 18 Blood Pressure 113/55 L 109/61 Pulse Oximetry 100 100 Oxygen Delivery Room Air Fraction of Inspired Oxygen 02/18/24 04:46 02/18/24 07:29 02/18/24 08:23 Temperature 97.7 F Pulse Rate 92 Respiratory Rate 16 Blood Pressure 116/57 L Pulse Oximetry 98 99 Oxygen Delivery Room Air Room Air Fraction of Inspired Oxygen 21 02/18/24 11:00 02/18/24 11:15 02/18/24 11:30 Temperature Pulse Rate 83 73 77 Respiratory Rate 19 18 16 Blood Pressure 115/72 112/59 L 105/53 L Pulse Oximetry 100 100 100 Oxygen Delivery Room Air Room Air Room Air Fraction of Inspired Oxygen Intake/Output Intake/Output: Intake & Output 02/15/24 02/16/24 02/17/24 02/18/24 23:59 23:59 23:59 23:59 Intake Total 1060 150 Output Total 1050 Balance 1060 -900 Meds/Results Medications: Active Medications Generic Name Dose Route Start Last Admin Trade Name Freq PRN Reason Stop Dose Admin Acetaminophen 650 mg 02/17/24 12:55 Acetaminophen 325 Mg Tablet PO Q4H PRN Mild Pain (1-3) or Fever Hydrocodone Bitart/Acetaminophen 1 tab 02/17/24 15:57 02/18/24 08:21 Hydrocodone/Acetaminophen (*Crx) 7.5-325 Mg Tablet PO 1 tab Q6H PRN Administration Pain Rated 4-10 Alprazolam 0.5 mg 02/18/24 15:23 Alprazolam (*Crx) 0.5 Mg Tablet PO TID PRN Anxiety Empagliflozin 10 mg 02/18/24 09:00 02/18/24 08:18 Empagliflozin 10 Mg Tablet PO 10 mg DAILY [facility] Administration Ferrous Sulfate 325 mg 02/17/24 17:00 02/18/24 12:19 Ferrous Sulfate [address] PO 325 mg 1200,1700 [facility] Administration Fluoxetine HCl 10 mg 02/18/24 15:25 Fluoxetine Hcl 10 Mg Capsule PO QAM [facility] Levofloxacin 500 mg 02/18/24 09:00 02/18/24 08:18 Levofloxacin 500 Mg Tablet PO 500 mg DAILY [facility] Administration Levothyroxine Sodium 75 mcg 02/18/24 06:30 02/18/24 05:48 Levothyroxine Sodium 75 Mcg Tablet PO 75 mcg DAILY@0630 [facility] Administration Metoprolol Succinate 50 mg 02/18/24 09:00 02/18/24 08:18 Metoprolol Succinate Ext Rel 50 Mg Tabcr PO 50 mg QAM [facility] Administration Neomycin/Polymyxin/Bacitracin 1 applic 02/17/24 17:59 Neomycin/Polymyxin/Bacitracin Ointment 15 Gm Tube TOPICAL PRN PRN with dressing changes Ondansetron HCl 4 mg 02/17/24 12:55 Ondansetron Inj 4 Mg/2 Ml Vial IV PUSH Q4H PRN Nausea Sacubitril/Valsartan 1 tab 02/17/24 21:00 02/18/24 08:18 Sacubitril/Valsartan 24-26 Mg Tablet PO 1 tab Q12HR [facility] Administration Spironolactone 25 mg 02/18/24 09:00 02/18/24 08:18 Spironolactone 25 Mg Tablet PO 25 mg QAM [facility] Administration Trazodone HCl 50 mg 02/18/24 15:23 Trazodone Hcl 50 Mg Tablet PO HS PRN Insomnia Radiology Results: ITS Impressions Biopsy,Fluoroscopy Guided 02/18/24 13:52 IMPRESSION: 1. Successful fluoroscopic guided bone marrow aspiration. 2. Successful fluoroscopic guided bone marrow biopsy. Labs Labs: Laboratory Results - last 24 hr 02/17/24 02/18/24 02/18/24 11:40 00:33 05:52 WBC 1.6 L* RBC 2.65 L Hgb 7.4 L 7.4 L Hct 22.5 L 22.7 L MCV 85.7 MCH 27.9 MCHC 32.6 RDW 19.8 H Plt Count 23 L* MPV TNP % Immature Plt Fraction 5.4 Sodium 131 L Potassium 4.1 Chloride 102 Carbon Dioxide 21 L Anion Gap 8 BUN 18 Creatinine 0.80 Estim Creat Clear Calc 88 Estimated GFR > 60 Glucose 93 POC Capillary Glucose Calcium 9.3 Magnesium 2.0 Blood Type A Positive Antibody Screen Negative Crossmatch See Detail 02/18/24 07:57 WBC RBC Hgb Hct MCV MCH MCHC RDW Plt Count MPV % Immature Plt Fraction Sodium Potassium Chloride Carbon Dioxide Anion Gap BUN Creatinine Estim Creat Clear Calc Estimated GFR Glucose POC Capillary Glucose 95 Calcium Magnesium Blood Type Antibody Screen Crossmatch
[2024-02-18] MEDS: ALPRAZolam (*CRX) 0.5 MG TABLET PO ×2 (16:15→20:30)
[2024-02-18] MEDS: FLUoxetine HCL 10 MG CAPSULE PO (16:15)
--- NOTE | 2024-02-18 16:19 | PDONCCN ---
HPI - Date of Consult Date/Time: 02/18/24 16:19 Requesting Physician: Palak Jacobo MD Primary Care Provider: Consuelo Allen APRN - Consult Narrative Reason for consult: Pancytopenia Narrative: Taiwo Palacios Sr. is a 63 year old male with history of rheumatoid arthritis on leflunomide, atrial fibrillation, cardiomyopathy and pancytopenia initially seen in consultation in August 2023 and then lost follow-up. He was seen in the office on a February 15 when he came back for the follow-up. Labs done in my office showed significant anemia with hemoglobin of 6.3 and WBC count of 1.9. He was told to go to the ER for admission. He denies any bleeding and bruising. He has been complaining of tiredness and fatigue. Patient received 3 units of packed red blood cell. He is already feeling better after the blood transfusion. Review of Systems - Review of Systems All systems reviewed & are unremarkable except as noted in [facility] and [facility] Medical History: Medical History (Last Updated 02/17/24 @ 23:07 by Bre Scott MD) Anemia Chronic pain syndrome Related to RA. Heart failure with reduced ejection fraction echo in 06/2023 showed dilated cardiomyopathy with an EF of 30 to 35% Hypothyroidism Immunocompromised state due to drug therapy Iron deficiency Pancytopenia Paroxysmal atrial fibrillation Rheumatoid arthritis Surgical History: Surgical History (Last Reviewed 02/17/24 @ 14:28 by Jaclyn Gomez PA-C) History of appendectomy Family History: Family History (Last Reviewed 02/17/24 @ 14:28 by Jaclyn Gomez PA-C) Father Family history of malignant neoplasm Family history of diabetes mellitus in first degree relative Colon cancer Grandparent Family history of coronary artery disease Mother Acute myocardial infarction History of blood clots Grandparent Acute myocardial infarction Mother No problems noted. Sibling History of blood clots Sibling History of blood clots Sibling History of blood clots - Social History Social History: Social History (Last Reviewed 02/17/24 @ 14:28 by Jaclyn Gomez PA-C) Alcohol Use: Alcohol intake: never Substance Use: Substance use: never Substance use type: does not use Others: Spiritual care concerns: No Smoking Status: Smoking status: Former smoker Tobacco type: cigarettes Second hand tobacco smoke exposure: No Smoking Pack-years: Smoking packs per day: 2 Smoking cigarettes per day: 40.0 Years smoked: 35 Smoking pack-years: 70.00 Social Determinants of Health: Do You Feel Safe in your Home?: Yes Has the Lack of Transportation Kept You From Medical Appointments or From Getting Medications?: No Within the Past 12 Months, Were You Worried Whether Your Food Would Run Out Before You Got Money to Buy More?: Never True What is Your Housing Situation Today?: I Have Housing Are You Worried That in the Next 2 Months, You May Not Have Your Own Housing to Live In?: No Do You Have Trouble Paying Your Heating Or Electricity Bill?: No Do You Have Trouble Paying For Medicines?: No Are You Currently Unemployed and Looking for Work?: No Highest Level of Education Completed: High School Diploma/GED Do You Have Trouble With Childcare or the Care of a Family Member?: No Exam - Vital Signs Vital Signs - 24 hr 02/17/24 16:29 02/17/24 17:29 02/17/24 18:32 Temperature 36.7 C 36.6 C 36.6 C Pulse Rate 89 90 94 Respiratory Rate 16 18 18 Blood Pressure 113/50 L 112/63 113/55 L Pulse Oximetry 100 100 100 Oxygen Delivery Fraction of Inspired Oxygen 02/17/24 20:19 02/17/24 20:00 02/18/24 04:46 Temperature 36.6 C 36.5 C Pulse Rate 93 92 Respiratory Rate 18 16 Blood Pressure 109/61 116/57 L Pulse Oximetry 100 98 Oxygen Delivery Room Air Fraction of Inspired Oxygen 02/18/24 07:29 02/18/24 08:23 02/18/24 11:00 Temperature Pulse Rate 83 Respiratory Rate 19 Blood Pressure 115/72 Pulse Oximetry 99 100 Oxygen Delivery Room Air Room Air Room Air Fraction of Inspired Oxygen 21 02/18/24 11:15 02/18/24 11:30 02/18/24 14:00 Temperature 36.4 C Pulse Rate 73 77 69 Respiratory Rate 18 16 18 Blood Pressure 112/59 L 105/53 L 130/74 Pulse Oximetry 100 100 97 Oxygen Delivery Room Air Room Air Fraction of Inspired Oxygen - Exam HEENT: EOMI, PERRLA, mucous membranes moist and pink Neck: supple Lungs: clear to auscultation, normal air movement Heart: no murmurs, gallops, or rubs, regular rhythm, regular rate Abdomen: abdomen soft, non-distended, normal bowel sounds Extremities: normal pulses Integumentary: no abnormalities Neurological: normal speech Psychological: mental status NL, mood NL - Lab Results Laboratory Last Values WBC 1.6 K/mm3 (4.5-10.0) L* 02/18/24 05:52 RBC 2.65 M/mm3 (4.6-6.20) L 02/18/24 05:52 Hgb 7.4 g/dL (14.0-18.0) L 02/18/24 05:52 Hct 22.7 % (42.0-52.0) L 02/18/24 05:52 MCV 85.7 fl (80-100) 02/18/24 05:52 MCH 27.9 pg (26-34) 02/18/24 05:52 MCHC 32.6 g/dl (32-36) 02/18/24 05:52 RDW 19.8 % (11.5-14.5) H 02/18/24 05:52 Plt Count 23 k/mm3 (150-375) L* 02/18/24 05:52 MPV TNP 02/18/24 05:52 Immature Gran % (Auto) 0.0 % (0-0.5) 02/17/24 11:40 Neut % (Auto) 15.0 % (45.5-73.1) L 02/17/24 11:40 Lymph % (Auto) 78.2 % (18.3-44.2) H 02/17/24 11:40 Walker % (Auto) 4.5 % (2.6-8.5) 02/17/24 11:40 Eos % (Auto) 1.7 % (0-4.4) 02/17/24 11:40 Baso % (Auto) 0.6 % (0.2-1.2) 02/17/24 11:40 Lymph # (Auto) 1.40 K/mm3 (0.9-3.2) 02/17/24 11:40 Walker # (Auto) 0.1 K/mm3 (0.1-0.6) 02/17/24 11:40 Eos # (Auto) 0.0 K/mm3 (0-0.3) 02/17/24 11:40 Baso # (Auto) 0.0 K/mm3 (0.0-0.1) 02/17/24 11:40 Abs Immat Gran (auto) 0.00 K/mm3 (0.00-0.031) 02/17/24 11:40 Absolute Neuts (auto) 0.3 K/mm3 (1.3-6.7) L 02/17/24 11:40 Absolute Nucleated RBC 0.040 K/mm3 (0.0-0.012) H 02/17/24 11:40 Nucleated RBC % 2.2 % (0.0-0.2) H 02/17/24 11:40 % Immature Plt Fraction 5.4 % (0.9-11.2) 02/18/24 05:52 PT 16.4 Seconds (11.1-14.7) H 02/17/24 11:40 INR 1.3 02/17/24 11:40 APTT 28.6 Seconds (22.3-36.8) 02/17/24 11:40 Sodium 131 mmol/L (137-145) L 02/18/24 05:52 Potassium 4.1 mmol/L (3.4-5.0) 02/18/24 05:52 Chloride 102 mmol/L (98-107) 02/18/24 05:52 Carbon Dioxide 21 mmol/L (22-30) L 02/18/24 05:52 Anion Gap 8 mmol/L (4-12) 02/18/24 05:52 BUN 18 mg/dL (9-20) 02/18/24 05:52 Creatinine 0.80 mg/dL (0.7-1.3) 02/18/24 05:52 Estim Creat Clear Calc 88 ml/min 02/18/24 05:52 Estimated GFR > 60 (59-) 02/18/24 05:52 Glucose 93 mg/dL (65-110) 02/18/24 05:52 POC Capillary Glucose 95 mg/dl (65-105) 02/18/24 07:57 Calcium 9.3 mg/dL (8.4-10.2) 02/18/24 05:52 Magnesium 2.0 mg/dL (1.6-2.3) 02/18/24 05:52 Total Bilirubin 0.8 mg/dL (0.2-1.3) 02/17/24 11:40 AST 24 U/L (17-59) 02/17/24 11:40 ALT 11 U/L (6-50) 02/17/24 11:40 Alkaline Phosphatase 111 U/L (38-126) 02/17/24 11:40 Total Protein 10.0 g/dL (6.3-8.2) H 02/17/24 11:40 Albumin 4.1 g/dL (3.5-5.1) 02/17/24 11:40 Blood Type A Positive 02/17/24 11:40 Antibody Screen Negative 02/17/24 11:40 Crossmatch See Detail 02/17/24 11:40 Meds Home Medications Medication Instructions Recorded Confirmed Type hydrocodone 7.5 mg-acetaminophen 1 tablet PO Q6H PRN Pain 06/28/23 02/17/24 History 325 mg tablet empagliflozin 10 mg tablet 10 mg PO DAILY #30 tabs 07/03/23 02/17/24 Rx metoprolol succinate 50 mg 50 mg PO QAM #30 tabs 07/03/23 02/17/24 Rx tablet,extended release 24 hr sacubitril 24 mg-valsartan 26 mg 1 tab PO Q12HR #60 tabs 07/03/23 02/17/24 Rx tablet (Entresto) spironolactone 25 mg tablet 25 mg PO QAM #30 tabs 07/03/23 02/17/24 Rx ascorbic acid (vitamin C) 1,000 mg 1 g PO DAILY 12/29/23 02/17/24 History capsule cholecalciferol (vitamin D3) 25 400 unit PO DAILY 12/29/23 02/17/24 History mcg (1,000 unit) capsule ferrous sulfate 325 mg (65 mg 325 mg PO BID 02/17/24 02/17/24 History iron) tablet,delayed release levofloxacin 500 mg tablet 500 mg PO DAILY 02/17/24 02/17/24 History levothyroxine 75 mcg capsule 75 mcg PO DAILY 02/17/24 02/17/24 History Allergies Allergy/AdvReac Type Severity Reaction Status Date / Time heparin AdvReac Unknown Other Verified 12/29/23 14:26 Results - Labs CBC & Chem 7: 02/18/24 05:52 02/18/24 05:52 Labs: Short CBC 02/18/24 02/18/24 Range/Units 00:33 05:52 WBC 1.6 L* (4.5-10.0) K/mm3 Hgb 7.4 L 7.4 L (14.0-18.0) g/dL Hct 22.5 L 22.7 L (42.0-52.0) % Plt Count 23 L* (150-375) k/mm3 [facility] 02/18/24 05:52 Sodium 131 L Potassium 4.1 Chloride 102 Carbon Dioxide 21 L BUN 18 Creatinine 0.80 Glucose 93 Calcium 9.3 Assessment and Plan - Additional Plan Pancytopenia. Patient is a 63-year-old male with history of rheumatoid arthritis, atrial fibrillation and cardiomyopathy was seen initially for pancytopenia in August 2023 in my office. He lost follow-up and just came to the office just 2 days ago. Labs showed elevated serum protein with significant pancytopenia. I am concerned about underlying bone marrow disorder like myelodysplastic syndrome. He was admitted for blood transfusion and bone marrow biopsy. Bone marrow biopsy was performed today. Labs showed improvement in hemoglobin now up to 7.4 after blood transfusion. WBC remains low at 1.6. We will start him on Neupogen 480 mcg subQ daily until WBC count is more than 5000. Platelet count remains low but no need for platelet transfusion at this time. I will order serum protein electrophoresis with immunofixation and quantitative immunoglobulin and serum free light chain studies. He will be discharged after improvement in the WBC count and will follow-up in the office.
[2024-02-18 19:39] LABS: Immunoglobulin A 680 mg/dL (70-400); Immunoglobulin M 263 mg/dL (40-230)
[2024-02-18] MEDS: traZODone HCL 50 MG TABLET PO (20:30)
[2024-02-18 20:43] LABS: Immunoglobulin G 3387 mg/dL (700-1600)
[2024-02-19 05:54] LABS: Hematocrit 22.1 % (42.0-52.0); Mean Corpuscular HGB Conc 31.7 g/dl (32-36); Mean Corpuscular Hemoglobin 27.8 pg (26-34); Mean Corpuscular Volume 87.7 fl (80-100); Red Blood Count 2.52 M/mm3 (4.6-6.20); Red Cell Distribution Width 19.7 % (11.5-14.5)
[2024-02-19 05:59] LABS: White Blood Count 1.5 K/mm3 (4.5-10.0)
[2024-02-19 06:00] VITALS: BP 113/59; PULSE 87; RESP 18; TEMP 36.9; O2SAT 97
[2024-02-19 06:00] LABS: Platelet Count Result 21 k/mm3 (150-375)
[2024-02-19 06:04] LABS: Alanine Aminotransferase 10 U/L (6-50); Albumin Level 3.5 g/dL (3.5-5.1); Alkaline Phosphatase 93 U/L (38-126); Anion Gap 9 mmol/L (4-12); Aspartate Amino Transferase 22 U/L (17-59); Bilirubin,Total 0.8 mg/dL (0.2-1.3); Blood Urea Nitrogen 17 mg/dL (9-20); Calcium 9.1 mg/dL (8.4-10.2); Carbon Dioxide 22 mmol/L (22-30); Chloride 102 mmol/L (98-107); Estimated CRCL calculation 88 ml/min; Estimated Glomerular Filt Rate > 60; Glucose 99 mg/dL (65-110); Sodium 133 mmol/L (137-145)
[2024-02-19] MEDS: LEVOTHYROXINE SODIUM 75 MCG TABLET PO (06:08)
[2024-02-19 06:39] LABS: Blastocytes 4 %; Eosinophils Absolute Manual 0.12 K/mm3 (0.02-0.50); Eosinophils Percent Manual 8 % (0-4); Lymphocytes Absolute Manual 1.26 K/mm3 (1.1-4.5); Neutrophils Percent Manual 4 % (46-73); Total Cells Counted 100
[2024-02-19 06:40] LABS: Anisocytosis 1+; Hypochromasia 2+; Platelet Estimate Decreased (Adequate); Schistocytes Rare
[2024-02-19 06:41] LABS: Microcytosis 1+ (NORMAL)
--- NOTE | 2024-02-19 08:07 | P.PNIM_ITS ---
Progress Note: A&P Assessment and Plan (1) Pancytopenia: Code(s): D61.818 - Other pancytopenia Status: Acute (2) Paroxysmal atrial fibrillation: Code(s): I48.0 - Paroxysmal atrial fibrillation Status: Acute Plan 63-year-old male with rheumatoid arthritis on leflunomide, paroxysmal atrial fibrillation/flutter not on long-term anticoagulation due to low [id number], dilated cardiomyopathy with an ejection fraction of 30 to 35 % on echo in June 2023, and hypothyroidism who presented to the emergency department after labs showed a low hemoglobin. In anticipation of an upcoming appoint with Dr. Tomlin, he had lab work drawn and was told to go to the ED after he was found to have a hemoglobin and hematocrit of 5.9 and 19% respectively. 1. Pancytopenia: Status post 2 units of blood transfusion Status post bone marrow biopsy Neutropenic precautions On levofloxacin prophylactically Platelet count 23,000, will transfuse for platelet less than 10,000 Watch for any spontaneous bleeding No active bleeding now, patient feels comfortable Appreciate executive admin consultation, consider possible myelodysplastic syndrome, bone marrow biopsy done, pending report c/w Neupogen 480 mcg subQ daily until WBC count is more than 5000 2. Anxiety: Will start on fluoxetine Add small dose of Xanax t.i.d. p.r.n. Add trazodone p.r.n. for nighttime for insomnia 3. History of heart failure: Stable Continue with Entresto Continue with Aldactone Continue with Jardiance Continue with beta-issa 4. DVT prophylaxis: None patient is severely thrombocytopenic 5. Code status: Full 6. Disposition pending improvement Subjective Date/time seen: 02/19/24 08:07 Interval history: I saw exam patient today, patient still feels tired, but improving. Patient denies abdomen pain, nausea vomiting black stool, headache. Patient is afebrile, labs reviewed, Exam Narrative: General: Mildly ill-appearing male in the semi-[place]adwick position in bed. Weight: 89 kg. BMI: 29.8. HEENT: PERRL, EOMI. Sclera anicteric. Pale conjunctiva. Moist mucous membranes. Neck: Supple. No JVD. Respiratory: Respirations are nonlabored and lungs are clear to auscultation. Cardiovascular: Regular rate and rhythm with S1-S2. Gastrointestinal: Abdomen is soft, nontender, and nondistended with positive bowel sounds. Skin: Warm and dry. Generalized pallor. Extremities: No cyanosis, clubbing, or edema. Peripheral pulses intact. Neurological: Alert. Cranial nerves 2-12 are grossly intact. No gross focal deficits to casual conversation. Psychiatric: Pleasant and cooperative with normal mood and affect. Judgment and insight intact. Objective Data Vital Signs Vital Signs: Vital Signs - 24 hr 02/18/24 08:23 02/18/24 11:00 02/18/24 11:15 Temperature Pulse Rate 83 73 Respiratory Rate 19 18 Blood Pressure 115/72 112/59 L Pulse Oximetry 100 100 Oxygen Delivery Room Air Room Air Room Air 02/18/24 11:30 02/18/24 14:00 02/18/24 22:00 Temperature 97.6 F 98.1 F Pulse Rate 77 69 83 Respiratory Rate 16 18 20 Blood Pressure 105/53 L 130/74 101/61 Pulse Oximetry 100 97 99 Oxygen Delivery Room Air 02/18/24 20:00 02/19/24 06:00 Temperature 98.4 F Pulse Rate 87 Respiratory Rate 18 Blood Pressure 113/59 L Pulse Oximetry 97 Oxygen Delivery Room Air Intake/Output Intake/Output: Intake & Output 02/16/24 02/17/24 02/18/24 02/19/24 23:59 23:59 23:59 23:59 Intake Total 1060 1830 400 Output Total 1050 Balance 1060 780 400 Meds/Results Medications: Active Medications Generic Name Dose Route Start Last Admin Trade Name Freq PRN Reason Stop Dose Admin Acetaminophen 650 mg 02/17/24 12:55 Acetaminophen 325 Mg Tablet PO Q4H PRN Mild Pain (1-3) or Fever Hydrocodone Bitart/Acetaminophen 1 tab 02/17/24 15:57 02/18/24 20:31 Hydrocodone/Acetaminophen (*Crx) 7.5-325 Mg Tablet PO 1 tab Q6H PRN Administration Pain Rated 4-10 Alprazolam 0.5 mg 02/18/24 15:23 02/18/24 20:30 Alprazolam (*Crx) 0.5 Mg Tablet PO 0.5 mg TID PRN Administration Anxiety Empagliflozin 10 mg 02/18/24 09:00 02/18/24 08:18 Empagliflozin 10 Mg Tablet PO 10 mg DAILY COUNTS INCLUDE 234 BEDS AT THE [facility] Administration Ferrous Sulfate 325 mg 02/17/24 17:00 02/18/24 16:16 Ferrous Sulfate [address] PO 325 mg 1200,1700 COUNTS INCLUDE 234 BEDS AT THE [facility] Administration Filgrastim-Sndz 480 mcg 02/19/24 09:00 Filgrastim-Sndz 480 Mcg/0.8 Ml Syringe SUB-Q DAILY COUNTS INCLUDE 234 BEDS AT THE [facility] Fluoxetine HCl 10 mg 02/18/24 15:25 02/18/24 16:15 Fluoxetine Hcl 10 Mg Capsule PO 10 mg QAM COUNTS INCLUDE 234 BEDS AT THE [facility] Administration Levofloxacin 500 mg 02/18/24 09:00 02/18/24 08:18 Levofloxacin 500 Mg Tablet PO 500 mg DAILY COUNTS INCLUDE 234 BEDS AT THE [facility] Administration Levothyroxine Sodium 75 mcg 02/18/24 06:30 02/19/24 06:08 Levothyroxine Sodium 75 Mcg Tablet PO 75 mcg DAILY@0630 COUNTS INCLUDE 234 BEDS AT THE [facility] Administration Metoprolol Succinate 50 mg 02/18/24 09:00 02/18/24 08:18 Metoprolol Succinate Ext Rel 50 Mg Tabcr PO 50 mg QAM COUNTS INCLUDE 234 BEDS AT THE [facility] Administration Neomycin/Polymyxin/Bacitracin 1 applic 02/17/24 17:59 Neomycin/Polymyxin/Bacitracin Ointment 15 Gm Tube TOPICAL PRN PRN with dressing changes Ondansetron HCl 4 mg 02/17/24 12:55 Ondansetron Inj 4 Mg/2 Ml Vial IV PUSH Q4H PRN Nausea Sacubitril/Valsartan 1 tab 02/17/24 21:00 02/18/24 20:31 Sacubitril/Valsartan 24-26 Mg Tablet PO 1 tab Q12HR [facility]AVON Administration Spironolactone 25 mg 02/18/24 09:00 02/18/24 08:18 Spironolactone 25 Mg Tablet PO 25 mg QAM COUNTS INCLUDE 234 BEDS AT THE [facility] Administration Trazodone HCl 50 mg 02/18/24 15:23 02/18/24 20:30 Trazodone Hcl 50 Mg Tablet PO 50 mg HS PRN Administration Insomnia Radiology Results: ITS Impressions Biopsy,Fluoroscopy Guided 02/18/24 13:52 IMPRESSION: 1. Successful fluoroscopic guided bone marrow aspiration. 2. Successful fluoroscopic guided bone marrow biopsy. Labs Labs: Laboratory Results - last 24 hr 02/18/24 02/19/24 18:51 05:23 WBC 1.5 L* RBC 2.52 L Hgb 7.0 L Hct 22.1 L MCV 87.7 MCH 27.8 MCHC 31.7 L RDW 19.7 H Plt Count 21 L* MPV TNP Immature Gran % (Auto) Stage Director Neut % (Auto) Stage Director Lymph % (Auto) Stage Director Howell % (Auto) Stage Director Eos % (Auto) Stage Director Baso % (Auto) Stage Director Lymph # (Auto) Stage Director Howell # (Auto) Stage Director Eos # (Auto) Stage Director Baso # (Auto) Stage Director Abs Immat Gran (auto) Stage Director Absolute Neuts (auto) Stage Director Absolute Nucleated RBC Stage Director Total Counted 100 Neutrophils % (Manual) 4 L Lymphocytes % (Manual) 84.0 H Eosinophils % (Manual) 8 H Nucleated RBC % Stage Director Abs Lymphs (Manual) 1.26 Absolute Eos (Manual) 0.12 Blast Cells 4 Platelet Estimate Decreased % Immature Plt Fraction 5.0 Hypochromasia 2+ Anisocytosis 1+ Microcytosis 1+ Schistocytes Rare Sodium 133 L Potassium 4.0 Chloride 102 Carbon Dioxide 22 Anion Gap 9 BUN 17 Creatinine 0.80 Estim Creat Clear Calc 88 Estimated GFR > 60 Glucose 99 Calcium 9.1 Total Bilirubin 0.8 AST 22 ALT 10 Alkaline Phosphatase 93 Total Protein 8.0 Albumin 3.5 IgG 3387 H IgA 680 H IgM 263 H
[2024-02-19 09:04] LABS: Protein, Total 8.5 g/dL (6.1-8.1)
[2024-02-19 09:45] VITALS: PULSE 97
[2024-02-19] MEDS: METOPROLOL SUCCINATE EXT REL 50 MG TABCR PO (09:45)
[2024-02-19] MEDS: levoFLOXacin 500 MG TABLET PO (09:45)
[2024-02-19] MEDS: FLUoxetine HCL 10 MG CAPSULE PO (09:46)
[2024-02-19] MEDS: SPIRONOLACTONE 25 MG TABLET PO (09:46)
[2024-02-19] MEDS: EMPAGLIFLOZIN 10 MG TABLET PO (09:46)
[2024-02-19] MEDS: SACUBITRIL/VALSARTAN 24-26 MG TABLET 1 TAB PO ×2 (09:46→21:03)
[2024-02-19] MEDS: FILGRASTIM-SNDZ 480 MCG/0.8 ML SYRINGE SUB-Q (09:52)
[2024-02-19] MEDS: FERROUS SULFATE 325 MG TABLET DR PO ×2 (12:28→17:04)
[2024-02-19] MEDS: HYDROcodone/acetaminophen (*CRX) 7.5-325 MG TABLET 1 TAB PO ×2 (14:48→21:03)
[2024-02-19 15:11] VITALS: BP 104/51; PULSE 85; RESP 17; TEMP 36.7; O2SAT 99
[2024-02-19 15:45] VITALS: TEMP 36.7
[2024-02-19] MEDS: traZODone HCL 50 MG TABLET PO (21:03)
[2024-02-19] MEDS: ALPRAZolam (*CRX) 0.5 MG TABLET PO (21:03)
[2024-02-19 22:03] VITALS: BP 112/57; PULSE 47; RESP 20; TEMP 36.8; O2SAT 98
[2024-02-20] MEDS: LEVOTHYROXINE SODIUM 75 MCG TABLET PO (05:59)
[2024-02-20 06:00] VITALS: BP 115/50; PULSE 86; RESP 20; TEMP 36.8; O2SAT 99
--- NOTE | 2024-02-20 08:39 | PM.IMPN ---
Progress Note: A&P Assessment and Plan (1) Pancytopenia: Code(s): D61.818 - Other pancytopenia Status: Acute (2) Paroxysmal atrial fibrillation: Code(s): I48.0 - Paroxysmal atrial fibrillation Status: Acute Plan 63-year-old male with rheumatoid arthritis on leflunomide, paroxysmal atrial fibrillation/flutter not on long-term anticoagulation due to low [id number], dilated cardiomyopathy with an ejection fraction of 30 to 35 % on echo in June 2023, and hypothyroidism who presented to the emergency department after labs showed a low hemoglobin. In anticipation of an upcoming appoint with Dr. Tomlin, he had lab work drawn and was told to go to the ED after he was found to have a hemoglobin and hematocrit of 5.9 and 19% respectively. 1. Pancytopenia: Status post 2 units of blood transfusion Status post bone marrow biopsy Neutropenic precautions On levofloxacin prophylactically Platelet count 23,000, will transfuse for platelet less than 10,000 Watch for any spontaneous bleeding No active bleeding now, patient feels comfortable Appreciate organ pipe maker metal consultation, consider possible myelodysplastic syndrome, bone marrow biopsy done, pending report c/w Neupogen 480 mcg subQ daily until WBC count is more than 5000. White cell of 1800 today. Afebrile, no sign of infection, hemoglobin 7.4 2. Anxiety: Will start on fluoxetine Add small dose of Xanax t.i.d. p.r.n. Add trazodone p.r.n. for nighttime for insomnia 3. History of heart failure: Stable, no sign of fluid overload Continue with Entresto Continue with Aldactone Continue with Jardiance Continue with beta-issa 4. DVT prophylaxis: None patient is severely thrombocytopenic 5. Code status: Full 6. Disposition pending improvement Subjective Date/time seen: 02/20/24 08:39 Interval history: I saw exam patient today, still has general weakness, feels better today, Patient denies abdomen pain, nausea vomiting black stool, headache. Patient is afebrile, labs reviewed, leukopenia persists but white blood cells number is trending up 1800 today Exam Narrative: GENERAL: Ill-appearing in no acute distress. Well-nourished. - EYES: EOMI. Anicteric. - HENT: Moist mucous membranes. Pale - LUNGS: Clear to auscultation bilaterally, no wheezing, rhonchi, or rales. - CARDIOVASCULAR: Regular rate and rhythm. No murmur. No JVD. - ABDOMEN: Soft, non-tender and non-distended. No palpable masses. - EXTREMITIES: No edema. Peripheral pulses 2+. Non-tender. - NEUROLOGIC: No focal neurological deficits. CN II-XII grossly intact. General weakness - PSYCHIATRIC: Awake, Alert and oriented x 3. Appropriate mood and affect. - SKIN: No rashes or lesions. Warm. - LYMPH: No cervical lymphadenopathy. Objective Data Vital Signs Vital Signs: Vital Signs - 24 hr 02/19/24 09:45 02/19/24 09:40 02/19/24 15:11 Temperature 98.1 F Pulse Rate 97 85 Respiratory Rate 17 Blood Pressure 104/51 L Pulse Oximetry 99 Oxygen Delivery Room Air 02/19/24 15:45 02/19/24 20:00 02/19/24 22:03 Temperature 98.1 F 98.2 F Pulse Rate 47 L Respiratory Rate 20 Blood Pressure 112/57 L Pulse Oximetry 98 Oxygen Delivery Room Air 02/20/24 06:00 Temperature 98.2 F Pulse Rate 86 Respiratory Rate 20 Blood Pressure 115/50 L Pulse Oximetry 99 Oxygen Delivery Intake/Output Intake/Output: Intake & Output 02/17/24 02/18/24 02/19/24 02/20/24 23:59 23:59 23:59 23:59 Intake Total 1060 1830 1310 500 Output Total 1050 4 Balance 7238 511 2667 496 Meds/Results Medications: Active Medications Generic Name Dose Route Start Last Admin Trade Name Freq PRN Reason Stop Dose Admin Acetaminophen 650 mg 02/17/24 12:55 Acetaminophen 325 Mg Tablet PO Q4H PRN Mild Pain (1-3) or Fever Hydrocodone Bitart/Acetaminophen 1 tab 02/17/24 15:57 02/19/24 21:03 Hydrocodone/Acetaminophen (*Crx) 7.5-325 Mg Tablet PO 1 tab Q6H PRN Administration Pain Rated 4-10 Alprazolam 0.5 mg 02/18/24 15:23 02/19/24 21:03 Alprazolam (*Crx) 0.5 Mg Tablet PO 0.5 mg TID PRN Administration Anxiety Empagliflozin 10 mg 02/18/24 09:00 02/19/24 09:46 Empagliflozin 10 Mg Tablet PO 10 mg DAILY KAVON Administration Ferrous Sulfate 325 mg 02/17/24 17:00 02/19/24 17:04 Ferrous Sulfate [address] PO 325 mg 1200,1700 [facility]ON Administration Filgrastim-Sndz 480 mcg 02/19/24 09:00 02/19/24 09:52 Filgrastim-Sndz 480 Mcg/0.8 Ml Syringe SUB-Q 480 mcg DAILY [facility]ON Administration Fluoxetine HCl 10 mg 02/18/24 15:25 02/19/24 09:46 Fluoxetine Hcl 10 Mg Capsule PO 10 mg QAM [facility] Administration Levofloxacin 500 mg 02/18/24 09:00 02/19/24 09:45 Levofloxacin 500 Mg Tablet PO 500 mg DAILY [facility] Administration Levothyroxine Sodium 75 mcg 02/18/24 06:30 02/20/24 05:59 Levothyroxine Sodium 75 Mcg Tablet PO 75 mcg DAILY@0630 [facility] Administration Metoprolol Succinate 50 mg 02/18/24 09:00 02/19/24 09:45 Metoprolol Succinate Ext Rel 50 Mg Tabcr PO 50 mg QAM [facility] Administration Neomycin/Polymyxin/Bacitracin 1 applic 02/17/24 17:59 Neomycin/Polymyxin/Bacitracin Ointment 15 Gm Tube TOPICAL PRN PRN with dressing changes Ondansetron HCl 4 mg 02/17/24 12:55 Ondansetron Inj 4 Mg/2 Ml Vial IV PUSH Q4H PRN Nausea Sacubitril/Valsartan 1 tab 02/17/24 21:00 02/19/24 21:03 Sacubitril/Valsartan 24-26 Mg Tablet PO 1 tab Q12HR [facility] Administration Spironolactone 25 mg 02/18/24 09:00 02/19/24 09:46 Spironolactone 25 Mg Tablet PO 25 mg QAM [facility] Administration Trazodone HCl 50 mg 02/18/24 15:23 02/19/24 21:03 Trazodone Hcl 50 Mg Tablet PO 50 mg HS PRN Administration Insomnia Radiology Results: ITS Impressions Biopsy,Fluoroscopy Guided 02/18/24 13:52 IMPRESSION: 1. Successful fluoroscopic guided bone marrow aspiration. 2. Successful fluoroscopic guided bone marrow biopsy. Labs Labs: Laboratory Results - last 24 hr 02/17/24 13:09 Total Protein 8.5 H
[2024-02-20 09:23] VITALS: PULSE 104
[2024-02-20] MEDS: SACUBITRIL/VALSARTAN 24-26 MG TABLET 1 TAB PO ×2 (09:23→20:44)
[2024-02-20] MEDS: FILGRASTIM-SNDZ 480 MCG/0.8 ML SYRINGE SUB-Q (09:23)
[2024-02-20] MEDS: METOPROLOL SUCCINATE EXT REL 50 MG TABCR PO (09:23)
[2024-02-20] MEDS: SPIRONOLACTONE 25 MG TABLET PO (09:25)
[2024-02-20] MEDS: levoFLOXacin 500 MG TABLET PO (09:25)
[2024-02-20] MEDS: EMPAGLIFLOZIN 10 MG TABLET PO (09:25)
[2024-02-20] MEDS: FLUoxetine HCL 10 MG CAPSULE PO (09:26)
[2024-02-20 09:30] LABS: Hematocrit 23.4 % (42.0-52.0); Hemoglobin 7.4 g/dL (14.0-18.0); Immature Platelet Fraction Pct 5.5 % (0.9-11.2); Mean Corpuscular HGB Conc 31.6 g/dl (32-36); Mean Corpuscular Hemoglobin 27.7 pg (26-34); Mean Corpuscular Volume 87.6 fl (80-100); Red Blood Count 2.67 M/mm3 (4.6-6.20); Red Cell Distribution Width 19.6 % (11.5-14.5)
[2024-02-20 09:34] LABS: Anion Gap 10 mmol/L (4-12); Blood Urea Nitrogen 19 mg/dL (9-20); Calcium 9.5 mg/dL (8.4-10.2); Carbon Dioxide 19 mmol/L (22-30); Chloride 101 mmol/L (98-107); Estimated CRCL calculation 79 ml/min; Estimated Glomerular Filt Rate > 60; Glucose 87 mg/dL (65-110); Potassium 4.2 mmol/L (3.4-5.0); Sodium 130 mmol/L (137-145)
[2024-02-20 10:01] LABS: Platelet Count Result 21 k/mm3 (150-375); White Blood Count 1.8 K/mm3 (4.5-10.0)
[2024-02-20 10:10] LABS: Band Neutrophils Percent 4 % (0-6); Lymphocytes Absolute Manual 1.51 K/mm3 (1.1-4.5); Monocytes Absolute Manual 0.07 K/mm3 (0.1-0.90); Monocytes Percent Manual 4 % (3-9); Neutrophils Absolute Manual 0.21 K/mm3 (1.3-6.7); Neutrophils Percent Manual 8 % (46-73); Platelet Estimate Decreased (Adequate); Total Cells Counted 100
[2024-02-20 10:11] LABS: Anisocytosis 1+; Hypochromasia 1+; Schistocytes Rare
[2024-02-20] MEDS: FERROUS SULFATE 325 MG TABLET DR PO ×2 (12:46→16:43)
[2024-02-20] MEDS: HYDROcodone/acetaminophen (*CRX) 7.5-325 MG TABLET 1 TAB PO ×2 (14:20→20:44)
[2024-02-20 14:42] VITALS: BP 94/48; PULSE 87; RESP 18; TEMP 37.1; O2SAT 99
[2024-02-20] MEDS: traZODone HCL 50 MG TABLET PO (20:44)
[2024-02-20] MEDS: ALPRAZolam (*CRX) 0.5 MG TABLET PO (20:44)
[2024-02-20 22:15] VITALS: BP 114/42; PULSE 95; RESP 20; TEMP 36.1; O2SAT 100
[2024-02-21] VITALS (11 sets, daily range): BP systolic 93–110; BP diastolic 47–62; PULSE 59–94; RESP 16–18; TEMP 36.2–37; O2SAT 95–99
[2024-02-21 06:03] LABS: Immature Platelet Fraction Pct 4.9 % (0.9-11.2); Lymphocytes Absolute Auto 1.26 K/mm3 (0.9-3.2); Lymphocytes Percent Auto 62.7 % (18.3-44.2); Mean Corpuscular HGB Conc 31.3 g/dl (32-36); Mean Corpuscular Hemoglobin 27.7 pg (26-34); Mean Corpuscular Volume 88.5 fl (80-100); Monocytes Absolute Auto 0.1 K/mm3 (0.1-0.6); Neutrophils Absolute Auto 0.5 K/mm3 (1.3-6.7); Neutrophils Percent Auto 25.3 % (45.5-73.1); Nucleated Red Blood Cells Perc 1.5 % (0.0-0.2); Red Blood Count 2.35 M/mm3 (4.6-6.20); Red Cell Distribution Width 19.7 % (11.5-14.5)
[2024-02-21] MEDS: LEVOTHYROXINE SODIUM 75 MCG TABLET PO (06:06)
[2024-02-21] MEDS: HYDROcodone/acetaminophen (*CRX) 7.5-325 MG TABLET 1 TAB PO ×3 (06:06→21:05)
[2024-02-21 06:13] LABS: Anion Gap 8 mmol/L (4-12); Blood Urea Nitrogen 25 mg/dL (9-20); Calcium 9.4 mg/dL (8.4-10.2); Carbon Dioxide 19 mmol/L (22-30); Chloride 102 mmol/L (98-107); Estimated CRCL calculation 64 ml/min; Estimated Glomerular Filt Rate > 60; Glucose 81 mg/dL (65-110); Potassium 4.4 mmol/L (3.4-5.0); Sodium 129 mmol/L (137-145)
[2024-02-21 06:52] LABS: Hematocrit 20.8 % (42.0-52.0); Hemoglobin 6.5 g/dL (14.0-18.0)
[2024-02-21 06:53] LABS: Platelet Count Result 20 k/mm3 (150-375)
[2024-02-21 06:54] LABS: Hypochromasia 1+; Platelet Estimate Decreased (Adequate)
[2024-02-21 06:55] LABS: Anisocytosis 1+; Schistocytes None Seen
--- NOTE | 2024-02-21 08:12 | PM.IMPN ---
Progress Note: A&P Assessment and Plan (1) Pancytopenia: Code(s): D61.818 - Other pancytopenia Status: Acute (2) Paroxysmal atrial fibrillation: Code(s): I48.0 - Paroxysmal atrial fibrillation Status: Acute Plan 63-year-old male with rheumatoid arthritis on leflunomide, paroxysmal atrial fibrillation/flutter not on long-term anticoagulation due to low [id number], dilated cardiomyopathy with an ejection fraction of 30 to 35 % on echo in June 2023, and hypothyroidism who presented to the emergency department after labs showed a low hemoglobin. In anticipation of an upcoming appoint with Dr. Tomlin, he had lab work drawn and was told to go to the ED after he was found to have a hemoglobin and hematocrit of 5.9 and 19% respectively. 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 White cell of 2K today. Afebrile, no sign of infection, hemoglobin 6.5, transfuse 1 PRBC severe anemia and thrombocytopenia Follow-up stool guaiac, iron panel, reticulocyte, Need to consult GI if the labs suggesting blood-loss anemia, and transfuse platelet Anxiety: start on fluoxetine Add small dose of Xanax t.i.d. p.r.n. Add trazodone p.r.n. for nighttime for insomnia Chronic systolic heart failure EF 30-35% on echocardiogram June 29 Stable, no sign of fluid overload Continue with Entresto Continue with Aldactone Continue with Jardiance Continue with beta-issa Acquired hypothyroidism Continue Synthroid 75 mcg daily p.o., DVT prophylaxis: None patient is severely thrombocytopenic Code status: Full Disposition pending improvement Subjective Date/time seen: 02/21/24 08:12 Interval history: I saw exam patient today, still has general weakness, feels better today, Patient denies abdomen pain, nausea vomiting black stool, headache. Patient is afebrile, labs reviewed, white blood cell 2.0, hemoglobin 6.5, platelet [id number]. Patient is afebrile, blood pressure stable, no O2 desaturation on room air, Exam Narrative: GENERAL: Ill-appearing in no acute distress. Well-nourished. - EYES: EOMI. Anicteric. - HENT: Moist mucous membranes. Pale - LUNGS: Clear to auscultation bilaterally, no wheezing, rhonchi, or rales. - CARDIOVASCULAR: Regular rate and rhythm. No murmur. No JVD. - ABDOMEN: Soft, non-tender and non-distended. No palpable masses. - EXTREMITIES: No edema. Peripheral pulses 2+. Non-tender. - NEUROLOGIC: No focal neurological deficits. CN II-XII grossly intact. General weakness - PSYCHIATRIC: Awake, Alert and oriented x 3. Appropriate mood and affect. - SKIN: No rashes or lesions. Warm. - LYMPH: No cervical lymphadenopathy. Objective Data Vital Signs Vital Signs: Vital Signs - 24 hr 02/20/24 09:23 02/20/24 09:20 02/20/24 14:42 Temperature 98.8 F Pulse Rate 104 H 87 Respiratory Rate 18 Blood Pressure 94/48 L Pulse Oximetry 99 Oxygen Delivery Room Air 02/20/24 22:15 02/20/24 20:00 02/21/24 06:00 Temperature 97.0 F L 97.6 F Pulse Rate 95 94 Respiratory Rate 20 16 Blood Pressure 114/42 L 108/52 L Pulse Oximetry 100 95 Oxygen Delivery Room Air Intake/Output Intake/Output: Intake & Output 02/18/24 02/19/24 02/20/24 02/21/24 23:59 23:59 23:59 23:59 Intake Total 1830 1310 1550 722 Output Total 1050 4 Balance 780 1310 1546 722 Meds/Results Medications: Active Medications Generic Name Dose Route Start Last Admin Trade Name Freq PRN Reason Stop Dose Admin Acetaminophen 650 mg 02/17/24 12:55 Acetaminophen 325 Mg Tablet PO Q4H PRN Mild Pain (1-3) or Fever Hydrocodone Bitart/Acetaminophen 1 tab 02/17/24 15:57 02/21/24 06:06 Hydrocodone/Acetaminophen (*Crx) 7.5-325 Mg Tablet PO 1 tab Q6H PRN Administration Pain Rated 4-10 Alprazolam 0.5 mg 02/18/24 15:23 02/20/24 20:44 Alprazolam (*Crx) 0.5 Mg Tablet PO 0.5 mg TID PRN Administration Anxiety Empagliflozin 10 mg 02/18/24 09:00 02/20/24 09:25 Empagliflozin 10 Mg Tablet PO 10 mg DAILY [facility] Administration Ferrous Sulfate 325 mg 02/17/24 17:00 02/20/24 16:43 Ferrous Sulfate [address] PO 325 mg 1200,1700 [facility] Administration Filgrastim-Sndz 480 mcg 02/19/24 09:00 02/20/24 09:23 Filgrastim-Sndz 480 Mcg/0.8 Ml Syringe SUB-Q 480 mcg DAILY [facility] Administration Fluoxetine HCl 10 mg 02/18/24 15:25 02/20/24 09:26 Fluoxetine Hcl 10 Mg Capsule PO 10 mg QAM [facility] Administration Sodium Chloride 250 mls @ 30 mls/hr 02/21/24 07:04 Normal Saline Iv IV CONT 02/21/24 15:23 .[id number] STA Levofloxacin 500 mg 02/18/24 09:00 02/20/24 09:25 Levofloxacin 500 Mg Tablet PO 500 mg DAILY [facility] Administration Levothyroxine Sodium 75 mcg 02/18/24 06:30 02/21/24 06:06 Levothyroxine Sodium 75 Mcg Tablet PO 75 mcg DAILY@0630 [facility] Administration Metoprolol Succinate 50 mg 02/18/24 09:00 02/20/24 09:23 Metoprolol Succinate Ext Rel 50 Mg Tabcr PO 50 mg QAM [facility] Administration Neomycin/Polymyxin/Bacitracin 1 applic 02/17/24 17:59 Neomycin/Polymyxin/Bacitracin Ointment 15 Gm Tube TOPICAL PRN PRN with dressing changes Ondansetron HCl 4 mg 02/17/24 12:55 Ondansetron Inj 4 Mg/2 Ml Vial IV PUSH Q4H PRN Nausea Sacubitril/Valsartan 1 tab 02/17/24 21:00 02/20/24 20:44 Sacubitril/Valsartan 24-26 Mg Tablet PO 1 tab Q12HR [facility] Administration Spironolactone 25 mg 02/18/24 09:00 02/20/24 09:25 Spironolactone 25 Mg Tablet PO 25 mg QAM [facility] Administration Trazodone HCl 50 mg 02/18/24 15:23 02/20/24 20:44 Trazodone Hcl 50 Mg Tablet PO 50 mg HS PRN Administration Insomnia Radiology Results: ITS Impressions Biopsy,Fluoroscopy Guided 02/18/24 13:52 IMPRESSION: 1. Successful fluoroscopic guided bone marrow aspiration. 2. Successful fluoroscopic guided bone marrow biopsy. Labs Labs: Laboratory Results - last 24 hr 02/20/24 02/21/24 02/21/24 09:12 05:52 07:11 WBC 1.8 L* 2.0 L RBC 2.67 L 2.35 L Hgb 7.4 L 6.5 L* Hct 23.4 L 20.8 L* MCV 87.6 88.5 MCH 27.7 27.7 MCHC 31.6 L 31.3 L RDW 19.6 H 19.7 H Plt Count 21 L* 20 L* MPV TNP TNP Immature Gran % (Auto) Not Reportable 5.0 H Neut % (Auto) Not Reportable 25.3 L Lymph % (Auto) Not Reportable 62.7 H [place] % (Auto) Not Reportable 5.0 Eos % (Auto) Not Reportable 1.0 Baso % (Auto) Not Reportable 1.0 Lymph # (Auto) Not Reportable 1.26 [place] # (Auto) Not Reportable 0.1 Eos # (Auto) Not Reportable 0.0 Baso # (Auto) Not Reportable 0.0 Abs Immat Gran (auto) Not Reportable 0.10 H Absolute Neuts (auto) Not Reportable 0.5 L Absolute Nucleated RBC Not Reportable 0.030 H Total Counted 100 Neutrophils % (Manual) 8 L Band Neutrophils % 4 Lymphocytes % (Manual) 84.0 H Monocytes % (Manual) 4 Nucleated RBC % Not Reportable 1.5 H Abs Neuts (Manual) 0.21 L Abs Lymphs (Manual) 1.51 Abs Monocytes (Manual) 0.07 L Platelet Estimate Decreased Decreased % Immature Plt Fraction 5.5 4.9 Hypochromasia 1+ 1+ Anisocytosis 1+ 1+ Schistocytes Rare None seen Sodium 130 L 129 L Potassium 4.2 4.4 Chloride 101 102 Carbon Dioxide 19 L 19 L Anion Gap 10 8 BUN 19 25 H Creatinine 0.80 1.00 Estim Creat Clear Calc 79 64 Estimated GFR > 60 > 60 Glucose 87 81 Calcium 9.5 9.4 Blood Type A Positive Antibody Screen Negative Crossmatch See Detail
[2024-02-21 08:30] LABS: Immature Reticulocyte Fraction 8.1 % (3.0-15.9); Reticulocyte Hemoglobin Conten 28.9 pg (28.2-36.6); Reticulocyte Percent 2.36 % (0.7-4.3); Reticulocytes Absolute 0.06 10^6/uL (0.02-0.10)
[2024-02-21] MEDS: FLUoxetine HCL 10 MG CAPSULE PO (08:50)
[2024-02-21] MEDS: SACUBITRIL/VALSARTAN 24-26 MG TABLET 1 TAB PO ×2 (08:50→21:05)
[2024-02-21] MEDS: SPIRONOLACTONE 25 MG TABLET PO (08:51)
[2024-02-21] MEDS: EMPAGLIFLOZIN 10 MG TABLET PO (08:51)
[2024-02-21] MEDS: levoFLOXacin 500 MG TABLET PO (08:51)
[2024-02-21] MEDS: METOPROLOL SUCCINATE EXT REL 50 MG TABCR PO (08:51)
[2024-02-21] MEDS: SODIUM CHLORIDE 0.9% IV 250 ML 30 ML IV CONT (08:53)
[2024-02-21] MEDS: FILGRASTIM-SNDZ 480 MCG/0.8 ML SYRINGE SUB-Q (09:12)
[2024-02-21 09:40] LABS: Iron 62 ug/dL (49-181)
[2024-02-21 09:52] LABS: Percent Iron Saturation 29 % (20-50)
[2024-02-21] MEDS: FERROUS SULFATE 325 MG TABLET DR PO ×2 (12:29→17:45)
[2024-02-21 13:58] LABS: Hemoglobin 8.4 g/dL (14.0-18.0)
[2024-02-21] MEDS: traZODone HCL 50 MG TABLET PO (21:06)
[2024-02-21] MEDS: ALPRAZolam (*CRX) 0.5 MG TABLET PO (21:06)
[2024-02-22 04:44] VITALS: BP 96/49; PULSE 93; RESP 16; TEMP 37.2; O2SAT 95
[2024-02-22] MEDS: HYDROcodone/acetaminophen (*CRX) 7.5-325 MG TABLET 1 TAB PO ×3 (04:51→18:27)
[2024-02-22] MEDS: LEVOTHYROXINE SODIUM 75 MCG TABLET PO (04:52)
[2024-02-22] MEDS: levoFLOXacin 500 MG TABLET PO (08:16)
[2024-02-22] MEDS: FLUoxetine HCL 10 MG CAPSULE PO (08:16)
[2024-02-22] MEDS: EMPAGLIFLOZIN 10 MG TABLET PO (08:16)
[2024-02-22] MEDS: FILGRASTIM-SNDZ 480 MCG/0.8 ML SYRINGE SUB-Q (08:28)
[2024-02-22 08:30] VITALS: BP 94/55
[2024-02-22 08:46] LABS: Basophils Absolute Auto 0.1 K/mm3 (0.0-0.1); Basophils Percent Auto 2.4 % (0.2-1.2); Hematocrit 24.3 % (42.0-52.0); Hemoglobin 7.8 g/dL (14.0-18.0); Immature Granulocyte Absolute 0.24 K/mm3 (0.00-0.031); Immature Granulocyte Percent A 8.2 % (0-0.5); Immature Platelet Fraction Pct 4.6 % (0.9-11.2); Lymphocytes Absolute Auto 1.51 K/mm3 (0.9-3.2); Lymphocytes Percent Auto 51.7 % (18.3-44.2); Mean Corpuscular HGB Conc 32.1 g/dl (32-36); Mean Corpuscular Hemoglobin 28.4 pg (26-34); Mean Corpuscular Volume 88.4 fl (80-100); Monocytes Absolute Auto 0.1 K/mm3 (0.1-0.6); Monocytes Percent Auto 4.8 % (2.6-8.5); Neutrophils Absolute Auto 0.9 K/mm3 (1.3-6.7); Neutrophils Percent Auto 31.9 % (45.5-73.1); Red Blood Count 2.75 M/mm3 (4.6-6.20); Red Cell Distribution Width 18.6 % (11.5-14.5); White Blood Count 2.9 K/mm3 (4.5-10.0)
[2024-02-22 08:54] LABS: Anion Gap 9 mmol/L (4-12); Blood Urea Nitrogen 25 mg/dL (9-20); Calcium 9.8 mg/dL (8.4-10.2); Carbon Dioxide 23 mmol/L (22-30); Chloride 100 mmol/L (98-107); Estimated CRCL calculation 64 ml/min; Estimated Glomerular Filt Rate > 60; Glucose 77 mg/dL (65-110); Sodium 132 mmol/L (137-145)
[2024-02-22 10:04] LABS: Platelet Count Result 21 k/mm3 (150-375)
[2024-02-22 10:44] LABS: IFOB Positive Control Positive; Immunochemical Fecal Occult Bl Negative (N)
[2024-02-22 10:48] LABS: Anisocytosis 1+; Hypochromasia 1+; Platelet Estimate Decreased (Adequate)
[2024-02-22 10:49] LABS: Schistocytes None Seen
[2024-02-22] MEDS: FERROUS SULFATE 325 MG TABLET DR PO ×2 (11:41→17:04)
[2024-02-22 14:00] VITALS: BP 110/62; PULSE 86; RESP 16; TEMP 37.2; O2SAT 96
--- NOTE | 2024-02-22 15:49 | P.PNIM_ITS ---
Progress Note: A&P Assessment and Plan (1) Pancytopenia: Code(s): D61.818 - Other pancytopenia Status: Acute (2) Paroxysmal atrial fibrillation: Code(s): I48.0 - Paroxysmal atrial fibrillation Status: Acute Plan 63-year-old male with rheumatoid arthritis on leflunomide, paroxysmal atrial fibrillation/flutter not on long-term anticoagulation due to low [id number], dilated cardiomyopathy with an ejection fraction of 30 to 35 % on echo in June 2023, and hypothyroidism who presented to the emergency department after labs showed a low hemoglobin. In anticipation of an upcoming appoint with Dr. Tomlin, he had lab work drawn and was told to go to the ED after he was found to have a hemoglobin and hematocrit of 5.9 and 19% respectively. 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 White cell of 2K today. Afebrile, no sign of infection, hemoglobin 6.5, transfuse 1 PRBC severe anemia and thrombocytopenia Follow-up stool guaiac, iron panel, reticulocyte, Need to consult GI if the labs suggesting blood-loss anemia, and transfuse platelet Anxiety: start on fluoxetine Add small dose of Xanax t.i.d. p.r.n. Add trazodone p.r.n. for nighttime for insomnia Chronic systolic heart failure EF 30-35% on echocardiogram June 29 Stable, no sign of fluid overload Continue with Entresto Continue with Aldactone Continue with Jardiance Continue with beta-issa Acquired hypothyroidism Continue Synthroid 75 mcg daily p.o., DVT prophylaxis: None patient is severely thrombocytopenic Code status: Full Disposition pending improvement Subjective Date/time seen: 02/22/24 15:49 Interval history: Patient underwent bone marrow biopsy because of the pancytopenia pending results. Patient is on filgrastim and levofloxacin. Review of Systems Review of Systems: 12 systems were reviewed and are negativ e except for as per HPI. All systems reviewed & are unremarkable except as noted in HPI and below Exam Narrative: GENERAL: Ill-appearing in no acute distress. Well-nourished. - EYES: EOMI. Anicteric. - HENT: Moist mucous membranes. Pale - LUNGS: Clear to auscultation bilateral ly, no wheezing, rhonchi, or rales. - CARDIOVASCULAR: Regular rate and rhyth m. No murmur. No JVD. - ABDOMEN: Soft, non-tender and non-dist ended. No palpable masses. - EXTREMITIES: No edema. Peripheral puls es 2+. Non-tender. - NEUROLOGIC: No focal neurological defi cits. CN II-XII grossly intact. General weakness - PSYCHIATRIC: Awake, Alert and oriented x 3. Appropriate mood and affect. - SKIN: No rashes or lesions. Warm. - LYMPH: No cervical lymphadenopathy. Const: General: comfortable and no acute distress HENMT: Mouth: Yes moist mucous membranes Eyes: Sclera: sclerae normal Neck: Neck: supple Resp: Auscultation: clear to auscultation bilaterally Cardio: Rate: regular rate Rhythm: regular rhythm Skin: General skin exam: normal color Neuro: Speech: normal speech Extrem: General: normal to inspection Psych: Mental Status: mental status grossly normal Objective Data Vital Signs Vital Signs: Vital Signs - 24 hr 02/21/24 20:21 02/21/24 20:00 02/22/24 04:44 Temperature 98.6 F 99 F Pulse Rate 83 93 Respiratory Rate 18 16 Blood Pressure 100/47 L 96/49 L Pulse Oximetry 96 95 Oxygen Delivery Room Air 02/22/24 08:30 02/22/24 08:30 02/22/24 14:00 Temperature 98.9 F Pulse Rate 86 Respiratory Rate 16 Blood Pressure 94/55 L 110/62 Pulse Oximetry 96 Oxygen Delivery Room Air Intake/Output Intake/Output: Intake & Output 02/19/24 02/20/24 02/21/24 02/22/24 23:59 23:59 23:59 23:59 Intake Total 1310 1550 2013 708 Output Total 4 Balance 1310 1546 2013 708 Meds/Results Medications: Active Medications Generic Name Dose Route Start Last Admin Trade Name Freq PRN Reason Stop Dose Admin Acetaminophen 650 mg 02/17/24 12:55 Acetaminophen 325 Mg Tablet PO Q4H PRN Mild Pain (1-3) or Fever Hydrocodone Bitart/Acetaminophen 1 tab 02/17/24 15:57 02/22/24 11:42 Hydrocodone/Acetaminophen (*Crx) 7.5-325 Mg Tablet PO 1 tab Q6H PRN Administration Pain Rated 4-10 Alprazolam 0.5 mg 02/18/24 15:23 02/21/24 21:06 Alprazolam (*Crx) 0.5 Mg Tablet PO 0.5 mg TID PRN Administration Anxiety Empagliflozin 10 mg 02/18/24 09:00 02/22/24 08:16 Empagliflozin 10 Mg Tablet PO 10 mg DAILY [facility] Administration Ferrous Sulfate 325 mg 02/17/24 17:00 02/22/24 11:41 Ferrous Sulfate [address] PO 325 mg 1200,1700 [facility] Administration Filgrastim-Sndz 480 mcg 02/19/24 09:00 02/22/24 08:28 Filgrastim-Sndz 480 Mcg/0.8 Ml Syringe SUB-Q 480 mcg DAILY [facility] Administration Fluoxetine HCl 10 mg 02/18/24 15:25 02/22/24 08:16 Fluoxetine Hcl 10 Mg Capsule PO 10 mg QAM [facility] Administration Levofloxacin 500 mg 02/18/24 09:00 02/22/24 08:16 Levofloxacin 500 Mg Tablet PO 500 mg DAILY [facility] Administration Levothyroxine Sodium 75 mcg 02/18/24 06:30 02/22/24 04:52 Levothyroxine Sodium 75 Mcg Tablet PO 75 mcg DAILY@0630 [facility] Administration Metoprolol Succinate 50 mg 02/18/24 09:00 02/22/24 08:28 Metoprolol Succinate Ext Rel 50 Mg Tabcr PO Not Given QAM [facility] Neomycin/Polymyxin/Bacitracin 1 applic 02/17/24 17:59 Neomycin/Polymyxin/Bacitracin Ointment 15 Gm Tube TOPICAL PRN PRN with dressing changes Ondansetron HCl 4 mg 02/17/24 12:55 Ondansetron Inj 4 Mg/2 Ml Vial IV PUSH Q4H PRN Nausea Sacubitril/Valsartan 1 tab 02/17/24 21:00 02/22/24 08:28 Sacubitril/Valsartan 24-26 Mg Tablet PO Not Given Q12HR [facility] Spironolactone 25 mg 02/18/24 09:00 02/22/24 08:28 Spironolactone 25 Mg Tablet PO Not Given QAM [facility] Trazodone HCl 50 mg 02/18/24 15:23 02/21/24 21:06 Trazodone Hcl 50 Mg Tablet PO 50 mg HS PRN Administration Insomnia Radiology Results: ITS Impressions Biopsy,Fluoroscopy Guided 02/18/24 13:52 IMPRESSION: 1. Successful fluoroscopic guided bone marrow aspiration. 2. Successful fluoroscopic guided bone marrow biopsy. Labs Labs: Laboratory Results - last 24 hr 02/22/24 02/22/24 08:29 09:43 WBC 2.9 L RBC 2.75 L Hgb 7.8 L Hct 24.3 L MCV 88.4 MCH 28.4 MCHC 32.1 RDW 18.6 H Plt Count 21 L* MPV TNP Immature Gran % (Auto) 8.2 H Neut % (Auto) 31.9 L Lymph % (Auto) 51.7 H [place] % (Auto) 4.8 Eos % (Auto) 1.0 Baso % (Auto) 2.4 H Lymph # (Auto) 1.51 [place] # (Auto) 0.1 Eos # (Auto) 0.0 Baso # (Auto) 0.1 Abs Immat Gran (auto) 0.24 H Absolute Neuts (auto) 0.9 L Absolute Nucleated RBC 0.030 H Nucleated RBC % 1.0 H Platelet Estimate Decreased % Immature Plt Fraction 4.6 Hypochromasia 1+ Anisocytosis 1+ Schistocytes None seen Sodium 132 L Potassium 5.0 Chloride 100 Carbon Dioxide 23 Anion Gap 9 BUN 25 H Creatinine 1.00 Estim Creat Clear Calc 64 Estimated GFR > 60 Glucose 77 Calcium 9.8 Stl Occult Blood (IFOB) Negative Quality VTE Prophylaxis VTE prophylaxis: mechanical ordered Hospitalist MIPS Advance Care Plan I have confirmed that the patient's Advanced Care Plan is present, code status is documented, or surrogate decision maker is listed in patient medical record.: Yes Medication Reconciliation I have utilized all available resources to obtain, update and review the patients current medications (includes all prescriptions, OTC, herbals, cannabis, and nutritional supplements).: Yes
[2024-02-22 20:38] VITALS: BP 116/46; PULSE 93; RESP 18; TEMP 36.8; O2SAT 97
[2024-02-22] MEDS: SACUBITRIL/VALSARTAN 24-26 MG TABLET 1 TAB PO (20:41)
[2024-02-22] MEDS: ALPRAZolam (*CRX) 0.5 MG TABLET PO (20:41)
[2024-02-22] MEDS: traZODone HCL 50 MG TABLET PO (20:42)
[2024-02-23 04:34] VITALS: BP 102/72; PULSE 62; RESP 18; TEMP 36.6; O2SAT 99
[2024-02-23] MEDS: LEVOTHYROXINE SODIUM 75 MCG TABLET PO (05:06)
[2024-02-23 06:04] LABS: Hematocrit 26.1 % (42.0-52.0); Hemoglobin 8.3 g/dL (14.0-18.0); Immature Platelet Fraction Pct 6.5 % (0.9-11.2); Mean Corpuscular HGB Conc 31.8 g/dl (32-36); Mean Corpuscular Hemoglobin 28.4 pg (26-34); Mean Corpuscular Volume 89.4 fl (80-100); Red Blood Count 2.92 M/mm3 (4.6-6.20); Red Cell Distribution Width 18.9 % (11.5-14.5); White Blood Count 3.6 K/mm3 (4.5-10.0)
[2024-02-23 06:16] LABS: Alanine Aminotransferase 12 U/L (6-50); Albumin Level 3.6 g/dL (3.5-5.1); Alkaline Phosphatase 95 U/L (38-126); Anion Gap 12 mmol/L (4-12); Aspartate Amino Transferase 22 U/L (17-59); Bilirubin,Total 0.6 mg/dL (0.2-1.3); Blood Urea Nitrogen 22 mg/dL (9-20); Calcium 9.8 mg/dL (8.4-10.2); Carbon Dioxide 20 mmol/L (22-30); Chloride 98 mmol/L (98-107); Estimated CRCL calculation 70 ml/min; Estimated Glomerular Filt Rate > 60; Glucose 117 mg/dL (65-110); Potassium 4.1 mmol/L (3.4-5.0); Sodium 130 mmol/L (137-145)
[2024-02-23 06:23] LABS: Platelet Count Result 25 k/mm3 (150-375)
[2024-02-23] MEDS: FILGRASTIM-SNDZ 480 MCG/0.8 ML SYRINGE SUB-Q (08:32)
[2024-02-23] MEDS: EMPAGLIFLOZIN 10 MG TABLET PO (08:32)
[2024-02-23] MEDS: HYDROcodone/acetaminophen (*CRX) 7.5-325 MG TABLET 1 TAB PO ×3 (08:32→22:22)
[2024-02-23] MEDS: levoFLOXacin 500 MG TABLET PO (08:32)
[2024-02-23] MEDS: FLUoxetine HCL 10 MG CAPSULE PO (08:33)
[2024-02-23] MEDS: FERROUS SULFATE 325 MG TABLET DR PO ×2 (11:31→17:17)
[2024-02-23 14:00] VITALS: BP 112/70; PULSE 78; RESP 19; TEMP 36.6; O2SAT 98
--- NOTE | 2024-02-23 14:37 | P.PNIM_ITS ---
Progress Note: A&P Assessment and Plan (1) Pancytopenia: Code(s): D61.818 - Other pancytopenia Status: Acute (2) Paroxysmal atrial fibrillation: Code(s): I48.0 - Paroxysmal atrial fibrillation Status: Acute Plan 63-year-old male with rheumatoid arthritis on leflunomide, paroxysmal atrial fibrillation/flutter not on long-term anticoagulation due to low [id number], dilated cardiomyopathy with an ejection fraction of 30 to 35 % on echo in June 2023, and hypothyroidism who presented to the emergency department after labs showed a low hemoglobin. In anticipation of an upcoming appoint with Dr. Tomlin, he had lab work drawn and was told to go to the ED after he was found to have a hemoglobin and hematocrit of 5.9 and 19% respectively. 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 White cell of 2K today. Afebrile, no sign of infection, hemoglobin 6.5, transfuse 1 PRBC severe anemia and thrombocytopenia Follow-up stool guaiac, iron panel, reticulocyte, Need to consult GI if the labs suggesting blood-loss anemia, and transfuse platelet Anxiety: start on fluoxetine Add small dose of Xanax t.i.d. p.r.n. Add trazodone p.r.n. for nighttime for insomnia Chronic systolic heart failure EF 30-35% on echocardiogram June 29 Stable, no sign of fluid overload Continue with Entresto Continue with Aldactone Continue with Jardiance Continue with beta-issa Acquired hypothyroidism Continue Synthroid 75 mcg daily p.o., DVT prophylaxis: None patient is severely thrombocytopenic Code status: Full Disposition pending improvement Subjective Date/time seen: 02/23/24 14:37 Interval history: No acute events reported overnight. Bone marrow biopsy shows no clonal B-cells or aberrant T-cell or increased blast population detected. Called and awaiting call back. Review of Systems Review of Systems: 12 systems were reviewed and are negativ e except for as per HPI. All systems reviewed & are unremarkable except as noted in HPI and below Exam Narrative: GENERAL: Ill-appearing in no acute distress. Well-nourished. - EYES: EOMI. Anicteric. - HENT: Moist mucous membranes. Pale - LUNGS: Clear to auscultation bilateral ly, no wheezing, rhonchi, or rales. - CARDIOVASCULAR: Regular rate and rhyth m. No murmur. No JVD. - ABDOMEN: Soft, non-tender and non-dist ended. No palpable masses. - EXTREMITIES: No edema. Peripheral puls es 2+. Non-tender. - NEUROLOGIC: No focal neurological defi cits. CN II-XII grossly intact. General weakness - PSYCHIATRIC: Awake, Alert and oriented x 3. Appropriate mood and affect. - SKIN: No rashes or lesions. Warm. - LYMPH: No cervical lymphadenopathy. Const: General: comfortable and no acute distress HENMT: Mouth: Yes moist mucous membranes Eyes: Sclera: sclerae normal Neck: Neck: supple Resp: Auscultation: clear to auscultation bilaterally Cardio: Rate: regular rate Rhythm: regular rhythm Skin: General skin exam: normal color Neuro: Speech: normal speech Extrem: General: normal to inspection Psych: Mental Status: mental status grossly normal Objective Data Vital Signs Vital Signs: Vital Signs - 24 hr 02/22/24 20:38 02/22/24 20:00 02/23/24 04:34 Temperature 98.2 F 97.9 F Pulse Rate 93 62 Respiratory Rate 18 18 Blood Pressure 116/46 L 102/72 Pulse Oximetry 97 99 Oxygen Delivery Room Air 02/23/24 08:35 Temperature Pulse Rate Respiratory Rate Blood Pressure Pulse Oximetry Oxygen Delivery Room Air Intake/Output Intake/Output: Intake & Output 02/20/24 02/21/24 02/22/24 02/23/24 23:59 23:59 23:59 23:59 Intake Total 1550 2013 948 658 Output Total 4 Balance 1546 2013 948 658 Meds/Results Medications: Active Medications Generic Name Dose Route Start Last Admin Trade Name Freq PRN Reason Stop Dose Admin Acetaminophen 650 mg 02/17/24 12:55 Acetaminophen 325 Mg Tablet PO Q4H PRN Mild Pain (1-3) or Fever Hydrocodone Bitart/Acetaminophen 1 tab 02/17/24 15:57 02/23/24 08:32 Hydrocodone/Acetaminophen (*Crx) 7.5-325 Mg Tablet PO 1 tab Q6H PRN Administration Pain Rated 4-10 Alprazolam 0.5 mg 02/18/24 15:23 02/22/24 20:41 Alprazolam (*Crx) 0.5 Mg Tablet PO 0.5 mg TID PRN Administration Anxiety Empagliflozin 10 mg 02/18/24 09:00 02/23/24 08:32 Empagliflozin 10 Mg Tablet PO 10 mg DAILY [facility] Administration Ferrous Sulfate 325 mg 02/17/24 17:00 02/23/24 11:31 Ferrous Sulfate [address] PO 325 mg 1200,1700 [facility] Administration Filgrastim-Sndz 480 mcg 02/19/24 09:00 02/23/24 08:32 Filgrastim-Sndz 480 Mcg/0.8 Ml Syringe SUB-Q 480 mcg DAILY [facility] Administration Fluoxetine HCl 10 mg 02/18/24 15:25 02/23/24 08:33 Fluoxetine Hcl 10 Mg Capsule PO 10 mg QAM [facility] Administration Levofloxacin 500 mg 02/18/24 09:00 02/23/24 08:32 Levofloxacin 500 Mg Tablet PO 02/27/24 09:01 500 mg DAILY [facility] Administration Levothyroxine Sodium 75 mcg 02/18/24 06:30 02/23/24 05:06 Levothyroxine Sodium 75 Mcg Tablet PO 75 mcg DAILY@0630 [facility] Administration Metoprolol Succinate 50 mg 02/18/24 09:00 02/23/24 08:33 Metoprolol Succinate Ext Rel 50 Mg Tabcr PO Not Given QAM [facility] Neomycin/Polymyxin/Bacitracin 1 applic 02/17/24 17:59 Neomycin/Polymyxin/Bacitracin Ointment 15 Gm Tube TOPICAL PRN PRN with dressing changes Ondansetron HCl 4 mg 02/17/24 12:55 Ondansetron Inj 4 Mg/2 Ml Vial IV PUSH Q4H PRN Nausea Sacubitril/Valsartan 1 tab 02/17/24 21:00 02/23/24 08:33 Sacubitril/Valsartan 24-26 Mg Tablet PO Not Given Q12HR [facility] Spironolactone 25 mg 02/18/24 09:00 02/23/24 08:33 Spironolactone 25 Mg Tablet PO Not Given QAM [facility] Trazodone HCl 50 mg 02/18/24 15:23 02/22/24 20:42 Trazodone Hcl 50 Mg Tablet PO 50 mg HS PRN Administration Insomnia Radiology Results: ITS Impressions Biopsy,Fluoroscopy Guided 02/18/24 13:52 IMPRESSION: 1. Successful fluoroscopic guided bone marrow aspiration. 2. Successful fluoroscopic guided bone marrow biopsy. Labs Labs: Laboratory Results - last 24 hr 02/23/24 05:45 WBC 3.6 L RBC 2.92 L Hgb 8.3 L Hct 26.1 L MCV 89.4 MCH 28.4 MCHC 31.8 L RDW 18.9 H Plt Count 25 L MPV TNP % Immature Plt Fraction 6.5 Sodium 130 L Potassium 4.1 Chloride 98 Carbon Dioxide 20 L Anion Gap 12 BUN 22 H Creatinine 0.90 Estim Creat Clear Calc 70 Estimated GFR > 60 Glucose 117 H Calcium 9.8 Total Bilirubin 0.6 AST 22 ALT 12 Alkaline Phosphatase 95 Total Protein 9.0 H Albumin 3.6 Quality VTE Prophylaxis VTE prophylaxis: mechanical ordered
[2024-02-23 15:38] LABS: Kappa\\Lambda Light Chains 0.96 (0.26-1.65); Lambda Light Chain 133.6 mg/L (5.7-26.3)
--- NOTE | 2024-02-23 18:46 | P.PNONC_ITS ---
Progress Note: A/P - Additional Plan Pancytopenia status post bone marrow aspiration and biopsy. Initial biopsy report showed no clonal B and T-cells or increased blast. Final pathology report is pending regarding morphology to look for possible MDS. Patient denies any history of liver disease. Abdominal CT scan from December showed fatty infiltration of the liver with those cirrhosis. Workup for myeloma showed elevated immunoglobulin and kappa and light chain but serum protein electrophoresis and immunofixation studies are pending. Iron studies and vitamin B12 level was previously normal. Pancytopenia could be secondary to the leflunamide induced bone marrow toxicity. We will discontinue leflunomide. WBC count has improved after Neupogen treatment. Patient should be able to go home from Hematology standpoint with follow-up in the office to discuss final bone marrow biopsy results. - Time Spent With Patient Total time spent is greater than 50% in coordination of care (as documented) at patient's floor/unit and/or counseling patient: 15 - 25 minutes Subjective Interval history: Pancytopenia Review of Systems - Review of Systems Patient seems to be quite comfortable. He is feeling better. Denies eating. No other new complaint. Exam Vital signs: Temp Pulse Resp BP Pulse Ox O2 Del Method FiO2 36.6 C 78 19 112/70 98 Room Air 21 02/23/24 14:00 02/23/24 14:00 02/23/24 14:00 02/23/24 14:00 02/23/24 14:00 02/23/24 08:35 02/18/24 07:29 Narrative: Lungs are clear to auscultation bilaterally Cardiovascular regular rate rhythm no murmurs Abdomen soft nontender nondistended Extremities no edema PN: Objective Data - Labs CBC & Chem 7: 02/23/24 05:45 02/23/24 05:45 Labs: Laboratory Results - last 24 hr 02/18/24 02/23/24 18:51 05:45 WBC 3.6 L RBC 2.92 L Hgb 8.3 L Hct 26.1 L MCV 89.4 MCH 28.4 MCHC 31.8 L RDW 18.9 H Plt Count 25 L MPV TNP % Immature Plt Fraction 6.5 Sodium 130 L Potassium 4.1 Chloride 98 Carbon Dioxide 20 L Anion Gap 12 BUN 22 H Creatinine 0.90 Estim Creat Clear Calc 70 Estimated GFR > 60 Glucose 117 H Calcium 9.8 Total Bilirubin 0.6 AST 22 ALT 12 Alkaline Phosphatase 95 Total Protein 9.0 H Albumin 3.6 [place]/Lambda Ratio 0.96 Free [place] Light Chains 128.8 H Free [place] Light Chain 133.6 H
[2024-02-23 20:44] VITALS: BP 135/71; PULSE 51; RESP 18; TEMP 36.9; O2SAT 98
[2024-02-23] MEDS: SACUBITRIL/VALSARTAN 24-26 MG TABLET 1 TAB PO (20:52)
[2024-02-23] MEDS: ALPRAZolam (*CRX) 0.5 MG TABLET PO (20:52)
[2024-02-23] MEDS: traZODone HCL 50 MG TABLET PO (20:52)
[2024-02-24 06:05] VITALS: BP 91/59; PULSE 58; RESP 16; TEMP 37.1; O2SAT 98
[2024-02-24] MEDS: LEVOTHYROXINE SODIUM 75 MCG TABLET PO (06:09)
[2024-02-24] MEDS: HYDROcodone/acetaminophen (*CRX) 7.5-325 MG TABLET 1 TAB PO (06:10)
[2024-02-24 06:30] LABS: Hemoglobin 7.9 g/dL (14.0-18.0); Mean Corpuscular HGB Conc 32.9 g/dl (32-36); Mean Corpuscular Hemoglobin 28.6 pg (26-34); Red Blood Count 2.76 M/mm3 (4.6-6.20); Red Cell Distribution Width 18.9 % (11.5-14.5); White Blood Count 4.3 K/mm3 (4.5-10.0)
[2024-02-24 06:58] LABS: Platelet Count Result 22 k/mm3 (150-375)
[2024-02-24 07:04] LABS: Alanine Aminotransferase 11 U/L (6-50); Albumin Level 3.1 g/dL (3.5-5.1); Alkaline Phosphatase 96 U/L (38-126); Anion Gap 8 mmol/L (4-12); Aspartate Amino Transferase 24 U/L (17-59); Bilirubin,Total 0.7 mg/dL (0.2-1.3); Blood Urea Nitrogen 19 mg/dL (9-20); Calcium 9.4 mg/dL (8.4-10.2); Carbon Dioxide 22 mmol/L (22-30); Chloride 99 mmol/L (98-107); Estimated CRCL calculation 79 ml/min; Estimated Glomerular Filt Rate > 60; Glucose 75 mg/dL (65-110); Potassium 4.2 mmol/L (3.4-5.0); Sodium 129 mmol/L (137-145)
[2024-02-24] MEDS: EMPAGLIFLOZIN 10 MG TABLET PO (08:45)
[2024-02-24] MEDS: levoFLOXacin 500 MG TABLET PO (08:45)
[2024-02-24] MEDS: FLUoxetine HCL 10 MG CAPSULE PO (08:46)
[2024-02-24] MEDS: FILGRASTIM-SNDZ 480 MCG/0.8 ML SYRINGE SUB-Q (08:53)
--- NOTE | 2024-02-24 09:35 | P.DS_ITS ---
DS: Admitting Diagnosis Discharge Date 02/24/2024 Admitting Diagnosis Recheck/Abnormal Lab/Rx DS: Discharge Diagnosis Discharge Diagnosis (1) Pancytopenia: Code(s): D61.818 - Other pancytopenia Status: Acute (2) Paroxysmal atrial fibrillation: Code(s): I48.0 - Paroxysmal atrial fibrillation Status: Acute (3) Chronic pain syndrome: Code(s): G89.4 - Chronic pain syndrome Status: Acute Plan 63-year-old male with rheumatoid arthritis on leflunomide, paroxysmal atrial fibrillation/flutter not on long-term anticoagulation due to low [id number], dilated cardiomyopathy with an ejection fraction of 30 to 35 % on echo in June 2023, and hypothyroidism who presented to the emergency department after labs showed a low hemoglobin. In anticipation of an upcoming appoint with Dr. Tomlin, he had lab work drawn and was told to go to the ED after he was found to have a hemoglobin and hematocrit of 5.9 and 19% respectively. Pancytopenia: Status post multiple blood transfusion Status post bone marrow biopsy Neutropenic precautions On levofloxacin prophylactically Watch for any spontaneous bleeding, NO OBVIOUS BLEEDING NOW Appreciate tapper operator consultation, consider possible myelodysplastic syndrome, bone marrow biopsy done, pending report Neupogen 480 mcg subQ daily until WBC count is more than 5000. White cell of 2K today. Afebrile, no sign of infection, hemoglobin 6.5, transfuse 1 PRBC severe anemia and thrombocytopenia Follow-up stool guaiac, iron panel, reticulocyte, Need to consult GI if the labs suggesting blood-loss anemia, and transfuse platelet Anxiety: start on fluoxetine Add small dose of Xanax t.i.d. p.r.n. Add trazodone p.r.n. for nighttime for insomnia Chronic systolic heart failure EF 30-35% on echocardiogram June 29 Stable, no sign of fluid overload Continue with Entresto Continue with Aldactone Continue with Jardiance Continue with beta-chace Acquired hypothyroidism Continue Synthroid 75 mcg daily p.o., DVT prophylaxis: None patient is severely thrombocytopenic Code status: Full Disposition pending improvement DS: Summary Hospital Course Hospital Course: This is a very pleasant 63-year-old male with rheumatoid arthritis on leflunomide, paroxysmal atrial fibrillation/flutter not on long-term anticoagulation due to low [id number], dilated cardiomyopathy with an ejection fraction of 30 to 35 % on echo in June 2023, and hypothyroidism who presented to the emergency department after labs showed a low hemoglobin. The patient is known to myself and the hospitalist service from an admission in June at which time he was admitted with hypoxia and pneumonia related to influenza complicated by atrial fibrillation/flutter with rapid ventricular response. He was pancytopenic at that time with positive platelet antibodies and a positive ELEANOR and leflunomide was discontinued due to possible drug-induced thrombocytopenia. Leflunomide was resumed and he has been taking that daily up until last Wednesday. In anticipation of an upcoming appoint with Dr. Tomlin, he had lab work drawn and was told to go to the ED after he was found to have a hemoglobin and hematocrit of 5.9 and 19% respectively. With further questioning he admits that he has been increasingly weak and fatigued over the last several weeks and is getting short of breath with minimal exertion. He denies syncope, near syncope, hematemesis, melena, hematochezia, chest pain, and rash. In the ED: He was afebrile on arrival with stable vital signs. Labs are significant for a WBC count of 1.8, RBC count 2.11, hemoglobin 5.9, hematocrit 19%, platelet 30, PT 16.4, INR 1.3, sodium 134. He is being admitted in this setting for blood transfusion and bone marrow biopsy. Today discussed the case with , who agrees to discharging the patient and follow-up within week for continuation of care. He agrees to discontinue Neupogen today and also discussed recent drop in platelet. Patient continue levofloxacin for another 4 days upon discharge. Patient needs to see PCP for continuation of levofloxacin for leukopenia and alprazolam for his anxiety. Patient received trazodone in hospital for insomnia but discontinued prior to discharge. During the hospitalization patient had episodes of low blood pressure so we had advised to hold Entresto, spironolactone, metoprolol only the blood pressure drops less than 90 /60 or any signs of hypotension and likely dizziness, chest pain, diaphoresis. Please visit PCP/assistant offset press operator within a week for medical reconciliation. Status at Discharge Cognitive/behavioral status at discharge: Stable Time Spent with Patient Time attestation: Total time spent providing and/or coordinating discharge services: 45 minute Exam Narrative: GENERAL: Ill-appearing in no acute distress. Well-nourished. - EYES: EOMI. Anicteric. - HENT: Moist mucous membranes. Pale - LUNGS: Clear to auscultation bilateral ly, no wheezing, rhonchi, or rales. - CARDIOVASCULAR: Regular rate and rhyth m. No murmur. No JVD. - ABDOMEN: Soft, non-tender and non-dist ended. No palpable masses. - EXTREMITIES: No edema. Peripheral puls es 2+. Non-tender. - NEUROLOGIC: No focal neurological defi cits. CN II-XII grossly intact. General weakness - PSYCHIATRIC: Awake, Alert and oriented x 3. Appropriate mood and affect. - SKIN: No rashes or lesions. Warm. - LYMPH: No cervical lymphadenopathy. Const: General: comfortable and no acute distress HENMT: Mouth: Yes moist mucous membranes Eyes: Sclera: sclerae normal Neck: Neck: supple Resp: Auscultation: clear to auscultation bilaterally Cardio: Rate: regular rate Rhythm: regular rhythm Skin: General skin exam: normal color Neuro: Speech: normal speech Extrem: General: normal to inspection Psych: Mental Status: mental status grossly normal DS: Data Data Completed and Pending Completed studies during hospitalization: Pending at discharge 02/17/24 17:59 Bone Marrow [PTH] Routine Pending studies at discharge: Pending at discharge 02/17/24 12:44 Bone Marrow [PTH] Routine Labs on day of discharge: Labs from last 24 hours 02/24/24 02/19/24 02/18/24 05:51 05:23 18:51 WBC 4.3 L RBC 2.76 L Hgb 7.9 L Hct 24.0 L MCV 87.0 MCH 28.6 MCHC 32.9 RDW 18.9 H Plt Count 22 L* MPV TNP % Immature Plt Fraction 6.0 Sodium 129 L Potassium 4.2 Chloride 99 Carbon Dioxide 22 Anion Gap 8 BUN 19 Creatinine 0.80 Estim Creat Clear Calc 79 Estimated GFR > 60 Glucose 75 Calcium 9.4 Total Bilirubin 0.7 AST 24 ALT 11 Alkaline Phosphatase 96 Total Protein 8.0 Albumin 3.1 L [place]/Lambda Ratio 0.96 Free [place] Light Chains 128.8 H Free [place] Light Chain 133.6 H Parvovirus B19 IgG Intp 5.4 H Parvovirus B19 IgM Intp 0.4 Discharge Plan Discharge Attending physician on discharge: Mason Powell Consulting providers: Kaleb Tomlin Discharging Clinician: Mason Powell Anticipated Discharge Date/Time: 02/24/24 09:26 Patient Disposition: Home, Self-Care Activity: as tolerated Diet: regular Discharge Instructions: Please follow up for continuity of care Please follow up with PCP for his medication reconciliation Advise to check the BP before taking Entresto,Spironolactone and Metoprolol Hold Entresto and Metoprolol if BP < 90/60 or other symptoms of hypotension like dizziness or sweating or chest pain. Continue Levofloxacin for 4 days. Patient Instructions: Antibiotic Form Stand Alone Forms: General Discharge Information Follow-up/Referrals: Kaleb Tomlin MD [Physician] - 1 Week Discharge Medications: New alprazolam 0.5 mg Tablet 0.5 mg PO TID PRN (Reason: Anxiety) Qty: 10 0RF Continued ascorbic acid (vitamin C) 1,000 mg capsule 1 g PO DAILY cholecalciferol (vitamin D3) 25 mcg (1,000 unit) capsule 400 unit PO DAILY metoprolol succinate 50 mg Tablet Extended Release 24 Hr 50 mg PO QAM Qty: 30 1RF spironolactone 25 mg Tablet 25 mg PO QAM Qty: 30 1RF Entresto 24-26 mg Tablet 1 tab PO Q12HR Qty: 60 1RF empagliflozin 10 mg tablet 10 mg PO DAILY Qty: 30 1RF ferrous sulfate 325 mg (65 mg iron) tablet,delayed release (DR/EC) 325 mg PO BID levofloxacin 500 mg Tablet 500 mg PO DAILY Qty: 4 0RF Rx Instructions: take daily for 10 days levothyroxine 75 mcg capsule 75 mcg PO DAILY 30 Days Qty: 30 0RF hydrocodone-acetaminophen 7.5-325 mg Tablet 1 tablet PO Q6H PRN (Reason: Pain) Qty: 10 0RF No Action trazodone 50 mg tablet 50 mg PO QHS Qty: 30 0RF Date of admission: 02/19/24 16:56 Primary Care Provider: Consuelo Allen Admitting Provider: Palak Jacobo Attending physician on admission: Palak Jacobo Condition: Stable Hospitalist MIPS Heart Failure (Qualifier) Patient has current or prior documentation of LVEF less than or equal to 40%, or mod/servere depressed LVSF?: Yes IF NO, STOP HERE If Yes, Heart Failure (Qualifier) Patient was prescribed or already taking an Angiotensin-Converting Enzyme (JARED) Inhibitor, or Antiotensin Receptor Chace (ARB): Yes Patient was prescribed or already taking bisoprolol, carvedilol, or sustained release metoprolol succinate: Yes
[2024-02-24 12:04] LABS: Albumin 3.2 g/dL (3.8-4.8); Alpha 1 Globulin 0.5 g/dL (0.2-0.3); Alpha 2 Globulin 0.6 g/dL (0.5-0.9); Beta 1 Globulin 0.5 g/dL (0.4-0.6); Gamma Globulin 3.1 g/dL (0.8-1.7)
== END 2024-02-24 10:55 | disposition home or self-care (01) | DRG 809 ==
LOC: ANHED 12:35 → ANH3MED 13:57
PROVIDERS: Internal Medicine; Internal Medicine Hematology & Oncology; Physician Assistant; Radiology Diagnostic Radiology; Admitting Provider Hospitalist; Emergency Provider Student in an Organized Health Care Education/Training Program; PCP Nurse Practitioner Adult Health; Visit Provider General Practice
PROC: 079T3ZX Drainage of Bone Marrow, Percutaneous Approach, Diagnostic (ICD-10-PCS; principal; 2024-02-18 10:00)
DX: D61.818 Other pancytopenia (principal); I42.0 Dilated cardiomyopathy; I50.22 Chronic systolic (congestive) heart failure; D69.6 Thrombocytopenia, unspecified; D50.9 Iron deficiency anemia, unspecified; E03.9 Hypothyroidism, unspecified; F41.9 Anxiety disorder, unspecified; G89.4 Chronic pain syndrome; I48.0 Paroxysmal atrial fibrillation; M06.9 Rheumatoid arthritis, unspecified; Z79.84 Long term (current) use of oral hypoglycemic drugs; Z90.49 Acquired absence of other specified parts of digestive tract; Z87.891 Personal history of nicotine dependence; Z28.21 Immunization not carried out because of patient refusal
CPT/HCPCS: 36415; 36430; 38222; 80048; 80053; 82274; 82784; 82948; 83540; 83550; 83735; 83883; 84155; 84165; 85014; 85018; 85025; 85027; 85046; 85055; 85610; 85730; 86747; 86850; 86900; 86901; 86923; 88305; 88311; 88313; 99285; A9270; G0378; J1642; J2003; J2250; J3010; J7050; P9016; Q5101

== ENCOUNTER 2024-02-17 13:36 | Outpatient (CLI) | payer OTHER, SELFPAY ==
[2024-02-17 10:37] LABS: Basophils Percent Auto 1.1 % (0.2-1.2); Eosinophils Percent Auto 2.3 % (0-4.4); Hemoglobin 5.8 g/dL (14.0-18.0); Immature Granulocyte Absolute 0.11 K/mm3 (0.00-0.031); Immature Granulocyte Percent A 6.3 % (0-0.5); Immature Platelet Fraction Pct 5.7 % (0.9-11.2); Lymphocytes Absolute Auto 1.36 K/mm3 (0.9-3.2); Lymphocytes Percent Auto 77.3 % (18.3-44.2); Mean Corpuscular HGB Conc 30.5 g/dl (32-36); Mean Corpuscular Hemoglobin 27.4 pg (26-34); Mean Corpuscular Volume 89.6 fl (80-100); Monocytes Absolute Auto 0.1 K/mm3 (0.1-0.6); Monocytes Percent Auto 5.1 % (2.6-8.5); Neutrophils Absolute Auto 0.1 K/mm3 (1.3-6.7); Neutrophils Percent Auto 7.9 % (45.5-73.1); Nucleated Red Blood Cells Perc 3.4 % (0.0-0.2); Platelet Count Result 31 k/mm3 (150-375); Red Blood Count 2.12 M/mm3 (4.6-6.20); Red Cell Distribution Width 22.1 % (11.5-14.5); White Blood Count 1.8 K/mm3 (4.5-10.0)
[2024-02-17 10:42] LABS: Anisocytosis 2+; Hypochromasia 2+; Microcytosis 2+ (NORMAL); Platelet Estimate Decreased (Adequate); Schistocytes None Seen
[2024-02-17 10:43] LABS: Ovalocytes 1+; Poikilocytosis 1+; Rouleaux 1+
[2024-02-17 12:44] LABS: Immunoglobulin A 753 mg/dL (70-400); Immunoglobulin M 287 mg/dL (40-230)
[2024-02-17 13:08] LABS: Immunoglobulin G 3600 mg/dL (700-1600)
[2024-02-18 10:54] LABS: Protein, Total 8.9 g/dL (6.1-8.1)
[2024-02-21 14:59] LABS: Kappa\\Lambda Light Chains 1.07 (0.26-1.65); Lambda Light Chain 144.2 mg/L (5.7-26.3)
[2024-02-24 12:04] LABS: Albumin 3.3 g/dL (3.8-4.8); Alpha 1 Globulin 0.5 g/dL (0.2-0.3); Alpha 2 Globulin 0.6 g/dL (0.5-0.9); Beta 1 Globulin 0.6 g/dL (0.4-0.6); Gamma Globulin 3.2 g/dL (0.8-1.7)
== END 2024-02-17 13:37 | disposition home or self-care (01) ==
PROVIDERS: PCP Family Medicine; Visit Provider Internal Medicine Hematology & Oncology
DX: D64.9 Anemia, unspecified (principal)
CPT/HCPCS: 36415; 82784; 83883; 84155; 84165; 85025; 85055

== ENCOUNTER → 2024-03-09 09:47 | Day surgery (SDC) | payer OTHER, SELFPAY ==
[2024-03-02 08:30] VITALS: BMI 28.1
--- NOTE | 2024-03-02 08:31 | PC.NURSE ---
Report to the Outpatient Waiting Room, entrance under the green pavilion located off [facility], at time _0845_ on date _[id number]_. Planned Procedure Time: _1045_.? Time changes happen often and if your time is changed the preop area will call you the afternoon before. - You and your visitor will be asked to self-screen and do not enter if you have any COVID symptoms. Please call surgeon if you need to reschedule. - A mask is optional within the hospital at this time. Patients may have clear liquids (water, carbonated beverages, clear teas, apple juice) until 3 hours prior to surgery with a maximum of 20 ounces. - No food from midnight until time of surgery and no smoking Take only the following medications with a SIP of water on the morning of surgery: ___Fluoxetine, Levothyroxine, Metoprolol and if needed may take Pain pill and or Alprazolam DO NOT STOP ANY OF YOUR OTHER PRESCRIPTION MEDICATIONS PRIOR TO SURGERY EXCEPT THE FOLLOWING Medications to discontinue per physician __Vitamins____ Date to take last [id number]__[id number]___ Please no make-up, nail slovak, hairspray, perfume, deodorant, or body powder the day of surgery.? No jewelry (including any body piercings) or valuables the day of surgery, leave them at home.? Please take a shower or bath the night before, or the morning of, surgery with an antibacterial soap.? Wear comfortable, loose fitting clothing.? - Jewelry must be removed prior to entering the operating room.? Rings and piercings that are not removed may be cut off. - The hospital will not accept responsibility for valuables.? - Please leave all valuables, including medications, at home the day of surgery. If you are going home after surgery, a licensed diesel pile driver operator must drive you home.? - NO public transportation without another adult if you receive anesthesia. - We recommend that an adult stay with you for 24 hours following discharge. - We also recommend that you do not drive, make important decision, drink alcoholic beverages, or take any drugs that were not prescribed by your health care provider for at least 24 hours after your discharge time. Follow any additional instructions given to you from your surgeon. Telephone instructions given to _Taiwo___and asked if any additional questions and then verbalized understanding. Patient advised to call surgeon office or pre surgery nurse liaison [phone] if any additional questions.
[2024-03-09 08:19] LABS: INR 1.2; Prothrombin Time 15.5 Seconds (11.1-14.7)
[2024-03-09 08:26] LABS: Immature Platelet Fraction Pct 4.5 % (0.9-11.2); Platelet Count Result 49 k/mm3 (150-375)
[2024-03-09 09:04] LABS: Sodium 139 mmol/L (137-145)
--- NOTE | 2024-03-09 09:04 | SUR.PREOP ---
upon arrival to hospital labs drawn and after results Dr Cordova spoke to patient, case will be delayed until next week, patient and family aware to follow up with office to reschedule
== END ==
PROVIDERS: PCP Family Medicine; Visit Provider Surgery
DX: D46.9 Myelodysplastic syndrome, unspecified (principal); Z53.8 Procedure and treatment not carried out for other reasons
CPT/HCPCS: 36415; 84295; 85049; 85055; 85610

== ENCOUNTER 2024-03-14 08:03 | Outpatient (RCR) | payer OTHER, SELFPAY ==
[2024-03-14] VITALS (11 sets, daily range): BP systolic 88–109; BP diastolic 48–77; PULSE 68–74; RESP 18–20; TEMP 36.4–36.9; O2SAT 97–100
[2024-03-14 08:44] LABS: Hematocrit 21.2 % (42.0-52.0); Immature Platelet Fraction Pct 3.5 % (0.9-11.2); Mean Corpuscular HGB Conc 32.5 g/dl (32-36); Mean Corpuscular Hemoglobin 28.8 pg (26-34); Mean Corpuscular Volume 88.3 fl (80-100); Mean Platelet Volume 9.2 fl (7.4-10.4); Platelet Count Result 48 k/mm3 (150-375); Red Cell Distribution Width 20.1 % (11.5-14.5)
[2024-03-14 08:47] LABS: White Blood Count 1.1 K/mm3 (4.5-10.0)
[2024-03-14 08:49] LABS: Hemoglobin 6.9 g/dL (14.0-18.0)
[2024-03-14] MEDS: diphenhydrAMINE HCl CAP 25 MG CAPSULE PO (09:24)
[2024-03-14] MEDS: ACETAMINOPHEN 325 MG TABLET PO ×2 (09:24→12:17)
[2024-03-14] MEDS: SODIUM CHLORIDE 0.9% IV 250 ML 30 ML IV CONT ×2 (09:25→12:17)
== END 2024-06-12 23:59 | disposition home or self-care (01) ==
LOC: ANHCPCTRAN 08:03
PROVIDERS: PCP Family Medicine; Visit Provider Internal Medicine Hematology & Oncology
DX: D64.9 Anemia, unspecified (principal)
CPT/HCPCS: 36415; 36430; 85027; 85055; 86850; 86900; 86901; 86923; A9270; J7050; P9016; P9034

== ENCOUNTER 2024-03-15 01:16 | Day surgery (SDC) | payer OTHER, SELFPAY ==
[2024-03-10 09:14] VITALS: BMI 28.1
--- NOTE | 2024-03-10 09:18 | PC.NURSE ---
Report to the Outpatient Waiting Room, entrance under the green pavilion located off [facility], at time _1130_ on date _[id number]_. Planned Procedure Time: _130pm_.? Time changes happen often and if your time is changed the preop area will call you the afternoon before. - You and your visitor will be asked to self-screen and do not enter if you have any COVID symptoms. Please call surgeon if you need to reschedule. - A mask is optional within the hospital at this time. Patients may have clear liquids (water, carbonated beverages, clear teas, apple juice) until 3 hours prior to surgery with a maximum of 20 ounces. - No food from midnight until time of surgery and no smoking Take only the following medications with a SIP of water on the morning of surgery: __Fluoxetine, Levothyroxine, Metoprolol and if needed pain pill and or Alprazolam____ DO NOT STOP ANY OF YOUR OTHER PRESCRIPTION MEDICATIONS PRIOR TO SURGERY EXCEPT THE FOLLOWING Medications to discontinue per physician ___Vitamins____ Date to take last ykva___27-21-1957____ Please no make-up, nail belarusian, hairspray, perfume, deodorant, or body powder the day of surgery.? No jewelry (including any body piercings) or valuables the day of surgery, leave them at home.? Please take a shower or bath the night before, or the morning of, surgery with an antibacterial soap.? Wear comfortable, loose fitting clothing.? - Jewelry must be removed prior to entering the operating room.? Rings and piercings that are not removed may be cut off. - The hospital will not accept responsibility for valuables.? - Please leave all valuables, including medications, at home the day of surgery. If you are going home after surgery, a licensed regional truck driver must drive you home.? - NO public transportation without another adult if you receive anesthesia. - We recommend that an adult stay with you for 24 hours following discharge. - We also recommend that you do not drive, make important decision, drink alcoholic beverages, or take any drugs that were not prescribed by your health care provider for at least 24 hours after your discharge time. Follow any additional instructions given to you from your surgeon. Telephone instructions given to __Jeff__and asked if any additional questions and then verbalized understanding. Patient advised to call surgeon office or pre surgery nurse liaison [phone] if any additional questions.
--- NOTE | ~2024-03-15 | XR_ITS ---
EXAMINATION: XR fl guide central line place DATE: 03/15/2024 14:19 INDICATION: Port placement. TECHNIQUE: A single intraoperative fluoroscopic view of the chest was obtained. I was not present. Fl uoroscopy exposure time was 28 seconds. COMPARISON: Chest 2 views 07/15/2023 FINDINGS: There is a left subclavian port with tip not included. IMPRESSION: 1. Port tip not included. Reviewed, dictated and finalized at location A. EN STITCHER IMPRESSION: 1. Port tip not included.
--- NOTE | ~2024-03-15 | XR_ITS ---
EXAMINATION: XR chest port-a-cath/central DATE: 03/15/2024 14:35 INDICATION: Port placement. TECHNIQUE: A single frontal view of the chest was obtained. COMPARISON: Chest 2 views 07/15/2023 FINDINGS: There is no pneumonia, pleural effusion, or pneumothorax. The heart size is normal. Calcifi ed right hilar and mediastinal lymph nodes are consistent with old granulomatous disease. There is a left subclavian port with tip in superior vena cava. There is deviation of the catheter between the c lavicle and first rib. IMPRESSION: 1. Port tip in superior vena cava. Reviewed, dictated and finalized at location A. ILIZER MACHINE OPERATOR
[2024-03-15 12:00] VITALS: BP 111/59; PULSE 56; RESP 16; TEMP 36.9; O2SAT 100
[2024-03-15 12:16] LABS: Hematocrit 22.5 % (42.0-52.0); Hemoglobin 7.3 g/dL (14.0-18.0); Mean Corpuscular HGB Conc 32.4 g/dl (32-36); Mean Corpuscular Hemoglobin 28.4 pg (26-34); Mean Corpuscular Volume 87.5 fl (80-100); Mean Platelet Volume 9.6 fl (7.4-10.4); Platelet Count Result 93 k/mm3 (150-375); Red Blood Count 2.57 M/mm3 (4.6-6.20); Red Cell Distribution Width 19.5 % (11.5-14.5)
[2024-03-15 12:24] LABS: White Blood Count 1.3 K/mm3 (4.5-10.0)
[2024-03-15 12:29] LABS: INR 1.2; Prothrombin Time 15.5 Seconds (11.1-14.7)
[2024-03-15] MEDS: LACTATED RINGERS 1,000 ML 30 ML IV CONT (12:30)
[2024-03-15 12:31] LABS: Partial Thromboplastin Time 31.6 Seconds (22.3-36.8)
[2024-03-15] MEDS: KETOROLAC 15 MG/ML VIAL (*BKC) IV PUSH (12:53)
[2024-03-15 12:58] LABS: Eosinophils Absolute Manual 0.05 K/mm3 (0.02-0.50); Eosinophils Percent Manual 4 % (0-4); Lymphocytes Absolute Manual 1.04 K/mm3 (1.1-4.5); Neutrophils Percent Manual 16 % (46-73); Platelet Estimate Slightly Decreased (Adequate); Schistocytes Rare; Total Cells Counted 100
[2024-03-15 12:59] LABS: Ovalocytes 1+
--- NOTE | 2024-03-15 13:20 | PM.IMHP ---
H&P: HPI History of Present Illness Date/Time: 03/15/24 13:20 Chief Complaint: myelodysplastic syndrome Narrative: The patient is a 63-year-old male with multiple medical issues recently diagnosed with myelodysplastic syndrome, pancytopenia. The patient is going to undergo treatment for this and requires access. The patient denies any previous central venous catheterization. The patient is right handed. Review of Systems Review of Systems: All systems reviewed & are unremarkable except as noted in HPI and below PMFSH Past Medical History Medical History Anemia Chronic pain syndrome Related to RA. Heart failure with reduced ejection fraction echo in 06/2023 showed dilated cardiomyopathy with an EF of 30 to 35% Hypothyroidism Immunocompromised state due to drug therapy Iron deficiency Pancytopenia Paroxysmal atrial fibrillation Rheumatoid arthritis Surgical History Surgical History History of appendectomy Family History Family History Father Family history of malignant neoplasm Family history of diabetes mellitus in first degree relative Colon cancer Grandparent Family history of coronary artery disease Mother Acute myocardial infarction History of blood clots Grandparent Acute myocardial infarction Mother No problems noted. Sibling History of blood clots Sibling History of blood clots Sibling History of blood clots Social History Social History Social History: Surrogate medical decision maker: Isaura Palcaios, spouse. Code status: Full code. Smoking packs per day: 1 Smoking cigarettes per day: 20.0 Years smoked: 50 Smoking pack-years: 50.00 Smoking status: Former smoker Tobacco type: cigarettes Second hand tobacco smoke exposure: No Smoking end date: 03/10/16 Alcohol intake: never Substance use: never Substance use type: does not use Do You Feel Safe in your Home?: Yes Lack of Transportation: No Lack of Food: Never True Current Housing: I Have Housing Concerned About Future Housing: No Difficulty Paying Gas/Electric Bills: No Difficulty Paying for Meds: No Currently Unemployed: No Education: High School Diploma/GED Difficulty w/ Childcare or Family Care: No Living arrangements: with family Additional living arrangements comments: Lives with spouse and family in [place]. 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 Spiritual care concerns: No Meds Home Medications and Allergies Home Medications Medication Instructions Recorded Confirmed Type empagliflozin 10 mg tablet 10 mg PO DAILY #30 tabs 07/03/23 03/15/24 Rx metoprolol succinate 50 mg 50 mg PO QAM #30 tabs 07/03/23 03/15/24 Rx tablet,extended release 24 hr sacubitril 24 mg-valsartan 26 mg 1 tab PO Q12HR #60 tabs 07/03/23 03/15/24 Rx tablet (Entresto) spironolactone 25 mg tablet 25 mg PO QAM #30 tabs 07/03/23 03/15/24 Rx ascorbic acid (vitamin C) 1,000 mg 1 g PO DAILY 12/29/23 03/15/24 History capsule cholecalciferol (vitamin D3) 25 400 unit PO DAILY 12/29/23 03/15/24 History mcg (1,000 unit) capsule ferrous sulfate 325 mg (65 mg 325 mg PO BID 02/17/24 03/15/24 History iron) tablet,delayed release hydrocodone 7.5 mg-acetaminophen 1 tablet PO Q6H PRN Pain #10 tabs 02/24/24 03/15/24 Rx 325 mg tablet levofloxacin 500 mg tablet 500 mg PO DAILY #4 tabs 02/24/24 03/15/24 Rx levothyroxine 75 mcg capsule 75 mcg PO DAILY 30 days #30 caps 02/24/24 03/15/24 Rx trazodone 50 mg tablet 50 mg PO QHS #30 tabs 02/24/24 03/15/24 Rx albuterol 90 mcg-budesonide 80 2 inh inhalation ONCE #5.9 grams 03/01/24 03/15/24 Rx mcg/actuation HFA aerosol inhaler (Airsupra) fluoxetine 20 mg capsule 20 mg PO DAILY #30 caps 03/01/24 03/15/24 Rx tizanidine 4 mg capsule 4 mg PO TID PRN muscle spasticity 03/01/24 03/15/24 Rx #20 caps alprazolam 0.5 mg tablet 0.5 mg PO QHS PRN Anxiety #30 tabs 03/06/24 03/15/24 Rx Allergies Allergy/AdvReac Type Severity Reaction Status Date / Time heparin AdvReac Unknown Other Verified 03/14/24 09:15 Vital Signs Vital Signs - 24 hr 03/15/24 12:00 Temperature 36.9 C Pulse Rate 56 L Respiratory Rate 16 Blood Pressure 111/59 L Pulse Oximetry 100 Oxygen Delivery Room Air Exam Const: General: cooperative, comfortable, no acute distress and ill appearing Neck: Neck: normal visual inspection, full ROM and no lymphadenopathy Chest: Chest palpation & inspection: normal inspection of the chest Resp: Auscultation: clear to auscultation bilaterally Cardio: Rate: regular rate Rhythm: regular rhythm GI: Inspection: normal to inspection H&P: Results Labs Labs: Short CBC 03/15/24 Range/Units 11:54 WBC 1.3 L* (4.5-10.0) K/mm3 Hgb 7.3 L (14.0-18.0) g/dL Hct 22.5 L (42.0-52.0) % Plt Count 93 L D (150-375) k/mm3 Assessment and Plan Assessment and plan (1) MDS (myelodysplastic syndrome): Code(s): D46.9 - Myelodysplastic syndrome, unspecified Status: Acute Assessment and Plan: will set up for port placement, patient got blood products yesterday and labs are appropriate for elective procedure today
--- NOTE | 2024-03-15 13:30 | WPDANESEPPF ---
Anes - Initial Pre Proc Eval Procedure: Operation Date: 03/15/24 13:30 Proposed Procedures p Insertion Svetlana Cath - Hattie Cordova MD Date/Time: 03/15/24 13:30 Surgeon: Hattie Cordova MD Pre Op Diagnosis: myelodysplastic syndrome Patient Data Age: 63 Gender: M Height: 1.75 m Weight: 89.6 kg Last Vital Signs Temp 98.5 F 03/15/24 12:00 Pulse 56 L 03/15/24 12:00 Resp 16 03/15/24 12:00 BP 111/59 L 03/15/24 12:00 Pulse Ox 100 03/15/24 12:00 O2 Del Method Room Air 03/15/24 12:00 Allergies Allergy/AdvReac Type Severity Reaction Status Date / Time heparin AdvReac Unknown Other Verified 03/14/24 09:15 Home Medications Medication Instructions Recorded Confirmed Type empagliflozin 10 mg tablet 10 mg PO DAILY #30 tabs 07/03/23 03/15/24 Rx metoprolol succinate 50 mg 50 mg PO QAM #30 tabs 07/03/23 03/15/24 Rx tablet,extended release 24 hr sacubitril 24 mg-valsartan 26 mg 1 tab PO Q12HR #60 tabs 07/03/23 03/15/24 Rx tablet (Entresto) spironolactone 25 mg tablet 25 mg PO QAM #30 tabs 07/03/23 03/15/24 Rx ascorbic acid (vitamin C) 1,000 mg 1 g PO DAILY 12/29/23 03/15/24 History capsule cholecalciferol (vitamin D3) 25 400 unit PO DAILY 12/29/23 03/15/24 History mcg (1,000 unit) capsule ferrous sulfate 325 mg (65 mg 325 mg PO BID 02/17/24 03/15/24 History iron) tablet,delayed release hydrocodone 7.5 mg-acetaminophen 1 tablet PO Q6H PRN Pain #10 tabs 02/24/24 03/15/24 Rx 325 mg tablet levofloxacin 500 mg tablet 500 mg PO DAILY #4 tabs 02/24/24 03/15/24 Rx levothyroxine 75 mcg capsule 75 mcg PO DAILY 30 days #30 caps 02/24/24 03/15/24 Rx trazodone 50 mg tablet 50 mg PO QHS #30 tabs 02/24/24 03/15/24 Rx albuterol 90 mcg-budesonide 80 2 inh inhalation ONCE #5.9 grams 03/01/24 03/15/24 Rx mcg/actuation HFA aerosol inhaler (Airsupra) fluoxetine 20 mg capsule 20 mg PO DAILY #30 caps 03/01/24 03/15/24 Rx tizanidine 4 mg capsule 4 mg PO TID PRN muscle spasticity 03/01/24 03/15/24 Rx #20 caps alprazolam 0.5 mg tablet 0.5 mg PO QHS PRN Anxiety #30 tabs 03/06/24 03/15/24 Rx Laboratory Tests 03/15/24 11:54 WBC 1.3 L* K/mm3 (4.5-10.0) RBC 2.57 L M/mm3 (4.6-6.20) Hgb 7.3 L g/dL (14.0-18.0) Hct 22.5 L % (42.0-52.0) MCV 87.5 fl (80-100) MCH 28.4 pg (26-34) MCHC 32.4 g/dl (32-36) RDW 19.5 H % (11.5-14.5) Plt Count 93 L D k/mm3 (150-375) MPV 9.6 fl (7.4-10.4) Immature Gran % (Auto) Not Reportable Neut % (Auto) Not Reportable Lymph % (Auto) Not Reportable [place] % (Auto) Not Reportable Eos % (Auto) Not Reportable Baso % (Auto) Not Reportable Lymph # (Auto) Not Reportable [place] # (Auto) Not Reportable Eos # (Auto) Not Reportable Baso # (Auto) Not Reportable Abs Immat Gran (auto) Not Reportable Absolute Neuts (auto) Not Reportable Absolute Nucleated RBC Not Reportable Total Counted 100 Neutrophils % (Manual) 16 L % (46-73) Lymphocytes % (Manual) 80.0 H % (18-44) Eosinophils % (Manual) 4 % (0-4) Nucleated RBC % Not Reportable Abs Lymphs (Manual) 1.04 L K/mm3 (1.1-4.5) Absolute Eos (Manual) 0.05 K/mm3 (0.02-0.50) Platelet Estimate Slightly decreased (Adequate) % Immature Plt Fraction 2.0 % (0.9-11.2) Ovalocytes 1+ Schistocytes Rare PT 15.5 H Seconds (11.1-14.7) INR 1.2 APTT 31.6 Seconds (22.3-36.8) Patient hx anesthesia problems: none Family hx anesthesia problems: none Results Review: All pre-operative results and documents have been reviewed as part of the pre-operative evaluation. [facility] Past Medical History Medical History Anemia Chronic pain syndrome Related to RA. Heart failure with reduced ejection fraction echo in 06/2023 showed dilated cardiomyopathy with an EF of 30 to 35% Hypothyroidism Immunocompromised state due to drug therapy Iron deficiency Pancytopenia Paroxysmal atrial fibrillation Rheumatoid arthritis Surgical History Surgical History History of appendectomy Family History Family History Father Family history of malignant neoplasm Family history of diabetes mellitus in first degree relative Colon cancer Grandparent Family history of coronary artery disease Mother Acute myocardial infarction History of blood clots Grandparent Acute myocardial infarction Mother No problems noted. Sibling History of blood clots Sibling History of blood clots Sibling History of blood clots Social History Social History Social History: Surrogate medical decision maker: Isaura Palacios, spouse. Code status: Full code. Smoking packs per day: 1 Smoking cigarettes per day: 20.0 Years smoked: 50 Smoking pack-years: 50.00 Smoking status: Former smoker Tobacco type: cigarettes Second hand tobacco smoke exposure: No Smoking end date: 03/10/16 Alcohol intake: never Substance use: never Substance use type: does not use Do You Feel Safe in your Home?: Yes Lack of Transportation: No Lack of Food: Never True Current Housing: I Have Housing Concerned About Future Housing: No Difficulty Paying Gas/Electric Bills: No Difficulty Paying for Meds: No Currently Unemployed: No Education: High School Diploma/GED Difficulty w/ Childcare or Family Care: No Living arrangements: with family Additional living arrangements comments: Lives with spouse and family in [place]. 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 Spiritual care concerns: No Anes - Eval Final PreProcedure Day of Procedure 03/15/24 13:30 Patient weight: obese Heart: regular rate and rhythm Lungs: clear to auscultation Airway: Mallampati scale and special considerations (Edentulous. ) Neurological: alert and oriented Last oral intake: >/= 8 hours ASA classification: III Emergent: no Anesthetic plan: proceed Anesthesia type and monitoring: general GIVS and standard monitoring Results Review: All pre-operative results and documents have been reviewed as part of the pre-operative evaluation. Pt w MDS, received 1 U PRBCs and plt yesterday w improvement. Informed Consent: The patient's anesthetic plan and its attendant risks and benefits were discussed with the patient/family/POA. Questions were solicited and answers provided to the satisfaction of the patient/family/POA.
[2024-03-15] MEDS: ceFAZolin 2 GM/D5W 50 ML 2 GM/50 ML BAG IVPB (13:35)
[2024-03-15] MEDS: HEPARIN SODIUM 5,000 UNITS/ML VIAL 5000 UNITS IRRIGATION (14:00)
[2024-03-15] MEDS: HEPARIN SODIUM, PORCINE 10,000 UNITS/10 ML VIAL 10000 UNITS IV PUSH (14:01)
[2024-03-15] MEDS: BUPIVACAINE/EPINEPHRINE 0.5% 50 ML VIAL 30 ML INFILTRATE (14:02)
--- NOTE | 2024-03-15 14:02 | SUR.OPER ---
Patient's heparin allergy was noted prior to the beginning of the case. I (Cameron Ratliff, RN) spoke with Dr. Cordova regarding the patient's allergy and potential complications regarding flushing portacath line during the procedure. Dr. Cordova acknowledged this and after our discussion reached out to the patient's Oncologist, Dr. Tomlin. Both MDs verified that the patient was cleared to receive the drug due the to allergy being listed merely as a concern due to the patient's initial low platelet count. The patient was brought to the operating room and the procedure continued as indicated.
--- NOTE | 2024-03-15 14:13 | WPDHPUPDATE1 ---
History and Physical Update Update Date/Time: 03/15/24 14:13 History and Physical has been reviewed, including an updated exam of the patient. There are NO changes in the patient's condition. Risks, benefits, and alternatives have been discussed and questions answered. Patient agrees to proceed with procedure.
--- NOTE | 2024-03-15 14:16 | W.PM.PROC2 ---
Procedure Note - Detailed Date of Procedure 03/15/24 Pre-op Diagnosis myelodysplastic syndrome Post-op Diagnosis Same Procedure Performed placement of left subclavian venous access device under fluoroscopic guidance Surgeon Hattie Cordova MD Anesthesia MAC and Local Indications 63-year-old male presenting with myelodysplastic syndrome needing access for further therapy Findings first stick L SCV Description of Procedure Patient was brought into the operating room and placed in the supine position. After adequate induction of mac anesthesia, the patient was prepped and draped in normal sterile fashion. Time-out was then done to verify the patient's identity, as well as the procedure being performed. I began by making a small incision in the left chest, I then gained access into the left subclavian vein with an 18 gauge needle. I then placed the guidewire into the vein and confirmed placement via fluoroscopic guidance. I then locally anesthetized the area in the left chest. I then enlarged the incision around the guidewire including making a subcutaneous pocket inferiorly to allow placement of the port itself. I then placed a dilating sheath over the guidewire into the left subclavian vein via sterile Seldinger technique. This was once again done and confirmed via fluoroscopic guidance. I then removed the dilator and the guidewire, now just leaving the sheath in the vein. I then fed the previously flushed catheter into the left subclavian vein under fluoroscopic guidance. At approximately 20 cm, the catheter was noted to be near the atrial caval junction. I then peeled away the sheath, now just leaving the catheter in the vein. I then was able to easily draw and flush from the catheter. The catheter was cut to fit and attached to the port itself. The port was placed into the previously made subcutaneous pocket and sutured in with 0 Ethibond suture. Final fluoroscopic view showed the termination of the catheter at the atrial caval junction with a nice smooth curvature back to the port itself. I was able to gain access to the port with a Thomas needle and was able to easily draw and flush from the port. I then flushed 4 cc of a final heparin flush into the port. The incision was closed with 3 0 Vicryl suture in the subcutaneous tissue and the skin was closed with 4 O Monocryl subcuticular suture. Dermabond was then placed on wound. The patient tolerated the procedure well and will be sent to the recovery room in stable condition. Implants L SCV VAD Estimated Blood Loss 5 Drains No Packing No Pathology None sent Complications No immediate complications Condition Stable Disposition PACU [facility] Billing Surgery - Charge Forward: Surgery Billing
[2024-03-15 14:22] VITALS: BP 93/45; PULSE 72; RESP 16; O2SAT 95
[2024-03-15 14:50] VITALS: BP 103/62; PULSE 69; RESP 16; O2SAT 97
[2024-03-15 15:10] VITALS: BP 110/63; PULSE 71; RESP 16
== END 2024-03-15 15:22 | disposition home or self-care (01) ==
PROVIDERS: PCP Family Medicine; Visit Provider Surgery
PROC: (CPT 36561; principal; 2024-03-15 13:30)
DX: D46.9 Myelodysplastic syndrome, unspecified (principal); E03.9 Hypothyroidism, unspecified; G89.4 Chronic pain syndrome; I50.9 Heart failure, unspecified; E61.1 Iron deficiency; D61.818 Other pancytopenia; I48.0 Paroxysmal atrial fibrillation; M06.9 Rheumatoid arthritis, unspecified; E66.9 Obesity, unspecified; Z68.29 Body mass index [BMI] 29.0-29.9, adult; Z79.891 Long term (current) use of opiate analgesic; Z79.51 Long term (current) use of inhaled steroids; Z98.890 Other specified postprocedural states; Z87.891 Personal history of nicotine dependence; Z80.0 Family history of malignant neoplasm of digestive organs; Z82.49 Family history of ischemic heart disease and other diseases of the circulatory system
CPT/HCPCS: 36561; 36415; 77001; 85025; 85055; 85610; 85730; C1788; J0690; J1644; J1885; J2003; J2250; J2704; J3010; J7030; J7120

== ENCOUNTER 2024-04-10 10:03 | Outpatient (RCR) | payer OTHER, SELFPAY ==
[2024-04-03] VITALS (7 sets, daily range): BP systolic 90–106; BP diastolic 49–65; PULSE 57–61; RESP 14–15; TEMP 36.6–36.9; O2SAT 100
[2024-04-03] MEDS: ACETAMINOPHEN 325 MG TABLET PO (13:20)
[2024-04-03] MEDS: diphenhydrAMINE HCl CAP 25 MG CAPSULE PO (13:20)
[2024-04-03] MEDS: SODIUM CHLORIDE 0.9% IV 250 ML 30 ML IV CONT (13:49)
[2024-04-10] VITALS (13 sets, daily range): BP systolic 82–131; BP diastolic 50–74; PULSE 71–95; RESP 20–36; TEMP 36.6–38.3; O2SAT 95–100
[2024-04-10] MEDS: ACETAMINOPHEN 325 MG TABLET 650 MG PO (11:30)
[2024-04-10] MEDS: diphenhydrAMINE HCl CAP 25 MG CAPSULE PO (11:30)
[2024-04-10] MEDS: SODIUM CHLORIDE 0.9% IV 250 ML 30 ML IV CONT (11:31)
[2024-04-10] MEDS: FUROSEMIDE INJ 40 MG/4 ML VIAL 20 MG IV PUSH (14:35)
--- NOTE | 2024-04-10 17:46 | PC.NURSE ---
1550: [facility] hospital unit coordinator Bronwyn Power or community organization worker, Cameron Mason not available to notify of event at this time. Both Dr's office and blood bank have been notified. Will notify hospital supervisor food checkers and cashiers of event and orders.
[2024-04-10] MEDS: HEPARIN SODIUM LOCK FLUSH 500 UNITS/5 ML SYRINGE (18:15)
--- NOTE | 2024-04-10 19:21 | PC.NURSE ---
1650: Hospital home supervisor, Gallo Covington RN, notified of events earlier and orders received to continue blood transfusion per Dr. Tomlin.
== END 2024-07-02 23:59 | disposition home or self-care (01) ==
LOC: ANHCPCTRAN 10:03
PROVIDERS: PCP Family Medicine; Visit Provider Internal Medicine Hematology & Oncology
DX: D64.89 Other specified anemias (principal)
CPT/HCPCS: 36415; 36430; 86850; 86900; 86901; 86923; 96374; A9270; J1940; J7050; P9016; P9034

== ENCOUNTER 2024-04-15 18:54 | Inpatient (IN) | payer OTHER, SELFPAY ==
[2024-04-15] VITALS (44 sets, daily range): BP systolic 73–110; BP diastolic 41–85; PULSE 92–154; RESP 25–55; TEMP 37.5–38.8; O2SAT 93–100
--- NOTE | ~2024-04-15 | XR_ITS ---
XR abdomen gastric tube insert Ordering provider: Horacio Gandhi MD History: . OG insertion . Comparison: None. FINDINGS/impression: BOWEL: Nasogastric tube is seen with the tip in the body of the stomach. Nonobstructive bowel gas pat tern. Reviewed, dictated and finalized at location A. AND SALARY SPECIALIST
--- NOTE | ~2024-04-15 | XR_ITS ---
EXAMINATION: XR chest 1V portable DATE: 04/22/2024 05:54 INDICATION: Acute respiratory failure. Pneumonia. TECHNIQUE: A single frontal view of the chest was obtained. COMPARISON: Chest single view 04/21/2024, CT abdomen and pelvis 01/01/2024 FINDINGS: Calcified right lung nodules and calcified right hilar lymph nodes are consistent with old granulomatous disease. There are airspace opacities in left lower lung zone. There is a small left pl eural effusion. No pneumothorax. Cardiomegaly is noted. There is a left subclavian port with tip in s uperior vena cava. There is deviation of the catheter between the clavicle and first rib. A right upp er extremity peripherally inserted central venous catheter (PICC) is seen with tip in the superior ve na cava. IMPRESSION: 1. Stable airspace opacities in left lower lung zone, consistent with atelectasis versus pneumonia. 2. Stable small left pleural effusion. 3. Cardiomegaly. Reviewed, dictated and finalized at location A. RLINE SUPERVISOR IMPRESSION: 1. Stable airspace opacities in left lower lung zone, consistent with atelectas is versus pneumonia. 2. Stable small left pleural effusion. 3. Cardiomegaly.
--- NOTE | ~2024-04-15 | XR_ITS ---
Portable chest x-ray Comparison: 04/16/2024 Clinical History: Pneumonia Findings: Left-sided Mediport in place. There is probable left basilar airspace disease. Right lung essentially clear. Cardiomediastinal silhouette is stable. Bones and soft tissues are unremarkable. Impression: Left basilar atelectasis versus pneumonia. Correlate clinically. Left-sided Mediport. Reviewed, dictated and finalized at [facility]. DENTIAL TREATMENT STAFF Impression: Left basilar atelectasis versus pneumonia. Correlate clinically. Left-sided Mediport.
--- NOTE | ~2024-04-15 | XR_ITS ---
Portable chest x-ray Comparison: 04/18/2024 Clinical History: Respiratory failure Findings: Endotracheal tube, NG tube, and bilateral central venous lines are in place. Small to mode rate left pleural effusion present. There are mild central congestive change. Cardiomediastinal silh ouette is stable. Bones and soft tissues are unremarkable. Impression: [id number] left pleural effusion with probable left basilar atelectasis. Central congestive changes. Support tubes, as above. Reviewed, dictated and finalized at location . CTOR OF HOUSING Impression: [id number] left pleural effusion with probable left basilar atelectasis. Central congestive changes. Support tubes, as above.
--- NOTE | ~2024-04-15 | XR_ITS ---
Portable chest x-ray Comparison: 04/20/2024 Clinical History: Respiratory failure Findings: Bilateral central venous lines are in place. Small left pleural effusion present with left basilar atelectasis versus pneumonia. Right lung clear. Cardiomediastinal silhouette is stable. Bon es and soft tissues are unremarkable. Impression: Small left pleural effusion with left basilar atelectasis versus pneumonia. Bilateral central venous lines in place. Reviewed, dictated and finalized at location . CTOR EPIDEMIOLOGY Impression: Small left pleural effusion with left basilar atelectasis versus pneumonia. Bilateral central venous lines in place.
--- NOTE | ~2024-04-15 | XR_ITS ---
XR chest ET placement Ordering provider: Horacio Gandhi MD History: 63 years Male with . After intubation to confirm ET placement . Comparison: April 17, 2024 FINDINGS: MEDIASTINUM: The cardiac silhouette is slightly enlarged. Left Port-A-Cath with the tip overlying the superior vena cava. Congestive chantale. Endotracheal tube is seen with the tip above the domitila by abou t 4.5 cm. Nasogastric tube is seen extending to the stomach. LUNGS: No effusions or pneumothorax. Opacification in the left lung base medially. Bilateral interst itial thickening. OTHER: No free air under the diaphragm. IMPRESSION: Cardiomegaly with cardiac decompensation and pulmonary edema. Pneumonitis is not excluded. Follow-up advised. Left basilar atelectasis versus pneumonia. Reviewed, dictated and finalized at location A. GRATED CIRCUITS INSPECTOR IMPRESSION: Cardiomegaly with cardiac decompensation and pulmonary edema. Pneumonitis is no t excluded. Follow-up advised. Left basilar atelectasis versus pneumonia.
--- NOTE | ~2024-04-15 | XR_ITS ---
XR chest 1V portable Ordering provider: Almaz Nguyen MD History: 63 years Male with . Shortness of breath . Comparison: April 22, 2024 FINDINGS: MEDIASTINUM: The cardiac silhouette is moderately enlarged. Left Port-A-Cath with the tip overlying s uperior vena cava. A right PICC line with the tip overlying superior vena cava. Congestive chantale. LUNGS: No pneumothorax. Left basilar atelectasis versus pneumonia with pleural effusion. Bilateral in terstitial changes. OTHER: No free air under the diaphragm. IMPRESSION: Left basilar atelectasis versus pneumonia with pleural effusion. Cardiomegaly with cardiac decompensation. Pulmonary edema is not excluded. Reviewed, dictated and finalized at location A. LING FLUIDS SPECIALIST
--- NOTE | ~2024-04-15 | XR_ITS ---
XR chest PICC line Ordering provider: Shailesh Lopez MD History: 63 years Male with . PICC insertion . Comparison: April 18, 2024 FINDINGS: MEDIASTINUM: The cardiac silhouette is mildly enlarged. Right PICC line with the tip overlying superi or vena cava. endotracheal tube with the tip above the domitila by about 5 cm. Left Port-A-Cath with th e tip overlying superior vena cava. Nasogastric tube with the tip overlying the upper abdomen. Congestive chantale. LUNGS: No pneumothorax. Opacification in the left lung base is seen suggestive of atelectasis versus pneumonia with pleural effusion. Bilateral interstitial thickening. OTHER: No free air under the diaphragm. IMPRESSION: Left basilar atelectasis versus pneumonia with pleural effusion. Cardiomegaly with cardiac decompensation and pulmonary edema. Superimposed interstitial pneumonitis i s not excluded. Reviewed, dictated and finalized at location A. PUNCHER IMPRESSION: Left basilar atelectasis versus pneumonia with pleural effusion. Cardiomegaly with cardiac decompensation and pulmonary edema. Superimposed inte rstitial pneumonitis is not excluded.
--- NOTE | ~2024-04-15 | XR_ITS ---
Portable chest x-ray Comparison: 04/15/2024 Clinical History: Shortness of breath Findings: Small left pleural effusion present. There is mild to moderate bibasilar pulmonary edema a nd left basilar atelectasis. Left-sided Mediport in place. Cardiomediastinal silhouette is stable. B ones and soft tissues are unremarkable. Impression: Small left pleural effusion with bibasilar pulmonary edema/atelectasis. Correlate clinically for pneu monia. Left-sided Mediport. Reviewed, dictated and finalized at location M. CLUB HEAD INSPECTOR AND ADJUSTER Impression: Small left pleural effusion with bibasilar pulmonary edema/atelectasis. Correla te clinically for pneumonia. Left-sided Mediport.
--- NOTE | ~2024-04-15 | XR_ITS ---
MODIFIED ESOPHAGRAM HISTORY: Dysphagia with abnormal bedside swallow evaluation with coughing/choking. TECHNIQUE: Modified barium esophagram was performed on 04/21/2024. I administered fluoroscopy and per formed the exam with speech pathologist. Patient was seated for lateral fluoroscopic imaging for ing estion of thin liquids, pudding, solids and quantified amounts, followed by thin liquids in uncontrol led amounts. This was recorded on tape. A single fluoroscopic spot image was also recorded. The DAP f or this procedure was 0.987 Gycm2. The amount of fluoroscopy time used during this procedure was 1.2 minutes. FINDINGS: Oral stage: Adequate function. Pharyngeal stage: Adequate function. Cervical/esophageal stage: Adequate function. IMPRESSION: Patient tolerated regular consistency oral feedings in the upright position. Please sukh elate with speech pathologist findings and specific feeding recommendations. Reviewed, dictated and finalized at location A. HEAD LINER IMPRESSION: Patient tolerated regular consistency oral feedings in the upright position. Please correlate with speech pathologist findings and specific feedi ng recommendations.
--- NOTE | ~2024-04-15 | XR_ITS ---
EXAMINATION: XR chest 1V portable Exam Date/Time: 04/15/2024 19:19 PRESS WRITER HISTORY: shortness of breath, weak Comparison: 03/15/2024. RESULT: Lines, tubes, and devices: Left chest port, terminating in the distal SVC. Lungs and pleura: Mild diffuse reticular opacities with cuffing. Minimal bilateral costophrenic angl e blunting. Cardiomediastinal silhouette: Stable. Other: No acute osseous or upper abdominal finding. IMPRESSION: Pulmonary opacities may represent mild interstitial edema. Likely small bilateral pleural effusions Reviewed, dictated and finalized at location K. S WRITER IMPRESSION: Pulmonary opacities may represent mild interstitial edema. Likely small bilater al pleural effusions
--- NOTE | ~2024-04-15 | XR_ITS ---
Portable chest x-ray Comparison: 04/19/2024 Clinical History: Respiratory failure Findings: Endotracheal tube, NG tube, and bilateral central venous lines are in place. Small left pl eural effusion present with probable left basilar atelectasis. No right pleural effusion present. Ca rdiomediastinal silhouette is stable. Bones and soft tissues are unremarkable. Impression: Small left pleural effusion with probable left lower lobe atelectasis. Minimal right pleural effusion. Stable support tubes. Reviewed, dictated and finalized at location . ING PIPE LINER Impression: Small left pleural effusion with probable left lower lobe atelectasis. Minimal right pleural effusion. Stable support tubes.
--- NOTE | ~2024-04-15 | XR_ITS ---
Portable chest x-ray Comparison: 04/17/2024 Clinical History: Respiratory failure Findings: Endotracheal tube, NG tube, and left-sided Mediport in place. Small left pleural effusion present. There is central congestive change and probable mild pulmonary edema. Cardiomediastinal emma houette is stable. Bones and soft tissues are unremarkable. Impression: Small left pleural effusion with central congestive change and probable mild pulmonary edema. Support tubes, as above. Reviewed, dictated and finalized at location . E TESTED NURSING ASSISTANT Impression: Small left pleural effusion with central congestive change and probable mild pu lmonary edema. Support tubes, as above.
--- NOTE | 2024-04-15 18:55 | ECG_ITS ---
Test Date: 2024-04-15 18:57:53 Measurements Intervals [place] Rate: 105 P: 72 RI: 174 QRS: -27 QRSD: 105 T: 56 QT: 366 QTc: 484 Interpretive Statements SINUS TACHYCARDIA WITH OCCASIONAL SUPRAVENTRICULAR PREMATURE COMPLEXES LOW QRS VOLTAGE IN PRECORDIAL LEADS [QRS DEFLECTION < 1.0 mV IN CHEST LEADS] Poor R wave progression No previous ECG available for comparison Electronically Signed On 04-16-2024 08:51:40 DIAMOND SETTER by Henna Fry M.D.
--- NOTE | 2024-04-15 19:24 | ED.GENADULT ---
HPI - General Adult General Chief complaint: Weakness Stated complaint: sob, weakness Time Seen by Provider: 04/15/24 19:03 History of Present Illness HPI narrative: 63-year-old male with a past medical history significant for myelodysplastic syndrome, leukemia currently undergoing chemotherapy with last session 3 weeks prior. He also has congestive heart failure with reduced EF 35% to paroxysmal atrial fibrillation. Today presents to the emergency department with generalized weakness, difficulty breathing. He is febrile upon arrival, tachypneic, hypoxic, tachycardic a brought back to room 6 as a medical resuscitation. Patient's arrived shortly thereafter provides collateral formation states that for last week he has been having gradual decline and using the of the hospital. He had outpatient blood transfusions several days ago on Wednesday without difficulty as he has chronic anemia. Patient has been feeling warm and having chills as well as difficulty breathing these past few days to week. He is endorsing a nonspecific pain he states is from his rheumatoid arthritis, difficulty breathing, generalized weakness and chills. He is ill and toxic appearing. Related Data Home Medications ?Medication ?Instructions ?Recorded ?Confirmed ?Last Taken ?Type ascorbic acid (vitamin C) 1,000 mg 1 g PO DAILY 12/29/23 03/24/24 Unknown History capsule cholecalciferol (vitamin D3) 25 400 unit PO DAILY 12/29/23 03/24/24 Unknown History mcg (1,000 unit) capsule ferrous sulfate 325 mg (65 mg 325 mg PO BID 02/17/24 03/24/24 Unknown History iron) tablet,delayed release acyclovir 400 mg tablet 400 mg PO BID 03/20/24 03/24/24 Unknown History cyanocobalamin (vitamin B-12) 1,000 mcg PO DAILY 03/20/24 03/24/24 Unknown History 1,000 mcg tablet (Vitamin B-12) ibuprofen 200 mg tablet 200 mg PO Q6H PRN Pain, Mild 03/20/24 03/24/24 Unknown History multivitamin 1 tablet PO DAILY 03/20/24 03/24/24 Unknown History Allergies Allergy/AdvReac Type Severity Reaction Status Date / Time heparin AdvReac Unknown Other Verified 04/10/24 12:01 Review of Systems Review of Systems: As reviewed above in HPI All systems reviewed & are unremarkable except as noted in HPI and below PMFSH Past Medical History Medical History Anemia Chronic pain syndrome Related to RA. Heart failure with reduced ejection fraction echo in 06/2023 showed dilated cardiomyopathy with an EF of 30 to 35% Hypothyroidism Immunocompromised state due to drug therapy Iron deficiency Pancytopenia Paroxysmal atrial fibrillation Rheumatoid arthritis Surgical History Surgical History History of appendectomy Family History Family History Father Family history of malignant neoplasm Family history of diabetes mellitus in first degree relative Colon cancer Grandparent Family history of coronary artery disease Mother Acute myocardial infarction History of blood clots Grandparent Acute myocardial infarction Mother No problems noted. Sibling History of blood clots Sibling History of blood clots Sibling History of blood clots Social History Social History Social History: Surrogate medical decision maker: Isaura Palacios, spouse. Code status: Full code. Smoking packs per day: 1 Smoking cigarettes per day: 20.0 Years smoked: 40 Smoking pack-years: 40.00 Smoking status: Former smoker Tobacco type: cigarettes Second hand tobacco smoke exposure: No Smoking end date: 03/10/16 Alcohol intake: never Substance use: never Substance use type: does not use Do You Feel Safe in your Home?: Yes Lack of Transportation: No Lack of Food: Never True Current Housing: I Have Housing Concerned About Future Housing: No Difficulty Paying Gas/Electric Bills: No Difficulty Paying for Meds: No Currently Unemployed: No Education: High School Diploma/GED Difficulty w/ Childcare or Family Care: No Living arrangements: with family Additional living arrangements comments: Lives with spouse and family in [place]. 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 Spiritual care concerns: No Exam Narrative: GENERAL: Ill-appearing, toxic appearing, in acute distress with respirations in the 40s, hypoxic requiring oxygen HEAD: [Normocephalic, atraumatic.] EYES: PERRLA, extraocular movements are intact, pale conjunctiva bilaterally ENT: Nares clear, no rhinorrhea or epistaxis. Mucous membranes dry. NECK: Supple. CHEST: Tachypnea, coarse breath sounds throughout, scattered wheezing throughout. Left subclavian port site appears clean, not indurated, noninfected. HEART: Tachycardic rate with regular rhythm. No murmur heard. Warm extremities ABDOMEN: [Soft, nondistended], [nontender], [No rigidity or guarding] EXTREMITIES: Normal range of motion. [No edema.] SKIN: Warm, dry, no rash. NEURO: [No focal deficits]. Alert and oriented [x3.] PSYCH: [Normal mood and affect.] Course Vital Signs Vital signs: Vital Signs Pulse Oximetry 99 04/15/24 18:58 Oxygen Delivery Nasal Cannula 04/15/24 18:58 Oxygen Flow Rate 2 04/15/24 18:58 Temperature 37.8 C H 04/15/24 22:45 Pulse Rate 125 H 04/15/24 22:45 Respiratory Rate 38 H 04/15/24 22:45 Blood Pressure 90/48 L 04/15/24 22:45 Pulse Oximetry 95 04/15/24 22:45 Oxygen Delivery Nasal Cannula 04/15/24 18:58 Oxygen Flow Rate 2 04/15/24 18:58 Medical Decision Making [facility] Narrative Medical decision making narrative: 63-year-old male with leukemia and myelodysplastic syndrome presenting for signs and symptoms of febrile neutropenia and septic shock. Patient is chronically immunosuppressed as last chemotherapy session was 3 weeks prior. He presents with hypotension with a blood pressure 96/48, tachypnea at 40s, temperature 38.2? C, pulse 105 and requiring oxygen supplementation which is not normally wear. He is very ill and toxic appearing and my presumption is that he is septic from immunosuppression and underlying occult infection likely bacterial and potentially source being respiratory, blood stream or urine. His recent port site in his left subclavian vessel appears overall well without any overlying skin changes induration or obvious signs of infection. During his initial assessment patient blood pressure dropped even with initial fluids ordered he was now 87/58. Patient was given Tylenol for his fever, 30 cc/kg bolus of LR was ordered and a septic bundle was initiated including vancomycin cefepime, lactic acid, blood cultures, CBC, CMP, CRP, lactic, protocol. Chest x-ray, urinalysis and EKG were obtained. He was given some respiratory treatments with albuterol and ipratropium for his difficulty breathing and wheezing. COVID fluid RSV swabs were obtained. Neutropenic precautions needed. Patient's blood pressure slowly downtrended despite fluid resuscitation. He is now also in atrial fibrillation with rapid ventricular response after fluids. Maps of low 50s at this time, he has a history of paroxysmal AFib. I discussed the case with the gettering filament machine operator over the phone for recommendations regarding patient's management this time. My thoughts were to boost his mean arterial pressure with a dose of phenylephrine to try and allow him to have rate-controlling medications on board. I believe the atrial fibrillation RVR secondary to his septic shock and not primarily causing his low blood pressures given that he was already low with normal pulse and rate earlier. Decision was made to initiate amiodarone 150 mg push and drip for rate and rhythm control in addition to phenylephrine for blood pressure augmentation. He was given 200 mcg bolus and started on a phenylephrine infusion. Dr. Gandhi the gettering filament machine operator has accepted the patient to the ICU pending completion of workup. Patient is neutropenic with a white count of 0.8, febrile, septic confirming diagnosis of neutropenic fever. Likely source being pulmonary with effusions and potential pneumonia on x-ray. Urinalysis is pending. He has a hemoglobin of 5.8 and requiring blood transfusion at this time. He is given 2 units. ABG shows respiratory alkalosis with a pH 7.5, pCO2 of 19, bicarb of 16 indicating incomplete compensation of respiratory alkalosis, acute. Pre renal azotemia with a BUN of 35, some dehydration with sodium and chloride are low. No significant anion gap elevation. Negative lactic acid. Elevated CRP, broke all within normal limits. Albumin low at 2.9. COVID fluid RSV swabs are negative. EKG shows sinus tachycardia. He is now presently getting phenylephrine infusion after a small bolus and blood pressures have been around the 65+ systolic ranged at goal. Heart rate now controlled in the 110-100 20s range on amiodarone effusion. Patient has been accepted to the ICU. I discussed the case with the hospitalist Dr. Levin over the phone we went over patient's imaging studies, plan of care, clinical assessment and my suspicions for pneumonia leading towards his neutropenic fever source. ICU bed will be assigned and patient will be admitted at this time. Medical Records Medical records reviewed: Yes I reviewed the external patient's medical records. Vital Signs Vital Signs: Vital Signs Pulse Oximetry 99 04/15/24 18:58 Oxygen Delivery Nasal Cannula 04/15/24 18:58 Oxygen Flow Rate 2 04/15/24 18:58 Temperature 37.8 C H 04/15/24 22:45 Pulse Rate 125 H 04/15/24 22:45 Respiratory Rate 38 H 04/15/24 22:45 Blood Pressure 90/48 L 04/15/24 22:45 Pulse Oximetry 95 04/15/24 22:45 Oxygen Delivery Nasal Cannula 04/15/24 18:58 Oxygen Flow Rate 2 04/15/24 18:58 Lab Data Lab results reviewed: Yes I reviewed the patient's lab results. 04/15/24 19:17 04/15/24 19:17 Labs: Lab Results 04/15/24 04/15/24 04/15/24 Range/Units 19:15 19:17 19:46 WBC 0.8 L* (4.5-10.0) K/mm3 RBC 2.04 L (4.6-6.20) M/mm3 Hgb 5.8 L* (14.0-18.0) g/dL Hct 17.0 L* (42.0-52.0) % MCV 83.3 (80-100) fl MCH 28.4 (26-34) pg MCHC 34.1 (32-36) g/dl RDW 18.0 H (11.5-14.5) % Plt Count 38 L D (150-375) k/mm3 MPV 10.2 (7.4-10.4) fl Immature Gran % (Auto) Not Reportable Neut % (Auto) Not Reportable Lymph % (Auto) Not Reportable Crowley % (Auto) Not Reportable Eos % (Auto) Not Reportable Baso % (Auto) Not Reportable Lymph # (Auto) Not Reportable Crowley # (Auto) Not Reportable Eos # (Auto) Not Reportable Baso # (Auto) Not Reportable Abs Immat Gran (auto) Not Reportable Absolute Neuts (auto) Not Reportable Absolute Nucleated RBC Not Reportable Total Counted 25 Neutrophils % (Manual) 48 (46-73) % Band Neutrophils % 4 (0-6) % Lymphocytes % (Manual) 44.0 (18-44) % Monocytes % (Manual) 4 (3-9) % Nucleated RBC % Not Reportable Abs Neuts (Manual) 0.41 L (1.3-6.7) K/mm3 Abs Lymphs (Manual) 0.35 L (1.1-4.5) K/mm3 Abs Monocytes (Manual) 0.03 L (0.1-0.90) K/mm3 Smudge Cells Present Platelet Estimate Decreased (Adequate) % Immature Plt Fraction 5.4 (0.9-11.2) % Hypochromasia 2+ Anisocytosis 1+ Microcytosis 1+ (NORMAL) Ovalocytes 1+ Schistocytes None seen Sodium 123 L (137-145) mmol/L Potassium 4.4 (3.4-5.0) mmol/L Chloride 97 L (98-107) mmol/L Carbon Dioxide 19 L (22-30) mmol/L Anion Gap 7 (4-12) mmol/L BUN 35 H D (9-20) mg/dL Creatinine 1.20 (0.7-1.3) mg/dL Estim Creat Clear Calc Not Reportable Estimated GFR > 60 (59 - ) Glucose 121 H (65-110) mg/dL Calcium 8.1 L (8.4-10.2) mg/dL Total Bilirubin 1.0 (0.2-1.3) mg/dL AST 20 (17-59) U/L ALT 15 (6-50) U/L Alkaline Phosphatase 77 (38-126) U/L C-Reactive Protein 17.8 H (<1.0) mg/dL Total Protein 7.0 (6.3-8.2) g/dL Albumin 2.9 L (3.5-5.1) g/dL Procalcitonin 4.6 ng/mL Influenza A (RT-PCR) Negative Negative (Negative) Influenza B (RT-PCR) Negative Negative (Negative) RSV (RT-PCR) Negative (Negative) SARS-CoV-2 RNA (RT-PCR) Negative Negative (Negative) Blood Type A Positive Antibody Screen Negative Crossmatch See Detail ABG Data ABG results: 04/15/24 19:30 Puncture Site Right radial ABG pH 7.533 H* ABG pCO2 19.6 L* ABG pO2 73.6 L ABG PO2/FiO2 Ratio 2.63 ABG HCO3 16.1 L ABG O2 Saturation 96.6 ABG O2 Content 7.9 L ABG Base Excess -6.0 A-a Gradient 102.9 Oxyhemoglobin 93.1 Total Hemoglobin 5.9 L* O2 Delivery Device Nasal cannula O2 Liters/Min 2.0 FiO2 28 Attestation: I personally reviewed and interpreted this ABG as follows: Interpretation: Acute respiratory alkalosis without full metabolic compensation Imaging Data Attestation: I personally reviewed and interpreted this imaging study as follows: My impression: Impressions Chest X-Ray 04/15/24 19:27 IMPRESSION: Pulmonary opacities may represent mild interstitial edema. Likely small bilateral pleural effusions ECG Data EKG #1: Attestation: I personally reviewed and interpreted this ECG as follows: ECG completion date: 04/15/24 ECG completion time: 18:57 Prior ECG tracings: available for review Ischemic changes: non-specific ST-T wave changes and poor r wave progression EKG Interpretation: tachycardia, sinus rhythm, PACs, normal QT and left axis Critical Care Time Critical Care Time Critical Care Time: Yes Total Critical Care Time: 75 Discharge Plan Discharge Clinical Impression: Septic shock, Neutropenic fever, Atrial fibrillation with rapid ventricular response, Pneumonia, Leukemia Patient Disposition: Still a Patient Condition: Critical Patient Language: Tajik Prescriptions: No Action multivitamin Tablet 1 tablet PO DAILY cyanocobalamin (vitamin B-12) [Vitamin B-12] 1,000 mcg Tablet 1,000 mcg PO DAILY acyclovir 400 mg Tablet 400 mg PO BID ibuprofen 200 mg Tablet 200 mg PO Q6H PRN (Reason: Pain, Mild) ascorbic acid (vitamin C) 1,000 mg capsule 1 g PO DAILY cholecalciferol (vitamin D3) 25 mcg (1,000 unit) capsule 400 unit PO DAILY fluoxetine 20 mg capsule 20 mg PO DAILY Qty: 30 3RF Airsupra 90-80 mcg/actuation HFA aerosol inhaler 2 inh inhalation ONCE Qty: 5.9 3RF Rx Instructions: as a single dose; may repeat up to 6 doses per day (12 inhalations) metoprolol succinate 50 mg Tablet Extended Release 24 Hr 50 mg PO QAM Qty: 30 1RF spironolactone 25 mg Tablet 25 mg PO QAM Qty: 30 1RF Entresto 24-26 mg Tablet 1 tab PO Q12HR Qty: 60 1RF empagliflozin 10 mg tablet 10 mg PO DAILY Qty: 30 1RF ferrous sulfate 325 mg (65 mg iron) tablet,delayed release (DR/EC) 325 mg PO BID levofloxacin 500 mg Tablet 500 mg PO DAILY Qty: 4 0RF Rx Instructions: take daily for 10 days levothyroxine 75 mcg capsule 75 mcg PO DAILY 30 Days Qty: 30 0RF hydrocodone-acetaminophen 7.5-325 mg Tablet 1 tablet PO Q6H PRN (Reason: Pain) Qty: 10 0RF trazodone 50 mg tablet 50 mg PO QHS Qty: 30 0RF alprazolam 0.5 mg tablet 0.5 mg PO QHS PRN (Reason: Anxiety) Qty: 30 0RF Follow-up/Referrals: Yaya Britt MD [Primary Care Provider] - Time of Disposition: 23:00
[2024-04-15 19:26] LABS: Immature Platelet Fraction Pct 5.4 % (0.9-11.2); Mean Corpuscular HGB Conc 34.1 g/dl (32-36); Mean Corpuscular Hemoglobin 28.4 pg (26-34); Mean Corpuscular Volume 83.3 fl (80-100); Mean Platelet Volume 10.2 fl (7.4-10.4); Red Blood Count 2.04 M/mm3 (4.6-6.20)
[2024-04-15] MEDS: IPRATROPIUM BR 0.02% INH SOLN 0.5 MG/2.5 ML VIAL INHALATION (19:31)
[2024-04-15] MEDS: ALBUTEROL SULFATE NEB 2.5 MG/3 ML INH 10 MG INHALATION (19:31)
[2024-04-15 19:36] LABS: Alanine Aminotransferase 15 U/L (6-50); Albumin Level 2.9 g/dL (3.5-5.1); Alkaline Phosphatase 77 U/L (38-126); Anion Gap 7 mmol/L (4-12); Aspartate Amino Transferase 20 U/L (17-59); Blood Urea Nitrogen 35 mg/dL (9-20); Calcium 8.1 mg/dL (8.4-10.2); Carbon Dioxide 19 mmol/L (22-30); Chloride 97 mmol/L (98-107); Estimated Glomerular Filt Rate > 60; Glucose 121 mg/dL (65-110); Potassium 4.4 mmol/L (3.4-5.0); Sodium 123 mmol/L (137-145)
[2024-04-15] MEDS: CEFEPIME 2 GM/NS 50 ML 2 GM/50 ML BAG IVPB (19:37)
[2024-04-15 19:38] LABS: Alveolar/Arterial O2 Gradient 102.9 mmHg; Fractional Inspired Oxygen 28 %; HCO3 ABG 16.1 mEq/l (22.0-26.0); Oxygen Content ABG 7.9 %vol (16.0-22.0); Oxygen Saturation ABG 96.6 % (95.0-100.0); Oxyhemoglobin 93.1 % THb (90.0-100.0); PO2 ABG 73.6 mmHg (80.0-100.0); PO2 FiO2 Ratio Arterial Blood 2.63 %
[2024-04-15] MEDS: LACTATED RINGERS 1,000 ML 999 ML IV CONT ×2 (19:39→19:41)
[2024-04-15 19:40] LABS: pH ABG 7.533 (7.350-7.450)
[2024-04-15 19:41] LABS: PCO2 ABG 19.6 mmHg (35.0-45.0); Total Hemoglobin 5.9 g/dL (12.0-18.0)
[2024-04-15 19:42] LABS: Device NASAL CANNULA; Modified Allen's Test Pass; Site Drawn RIGHT RADIAL
[2024-04-15 19:45] LABS: White Blood Count 0.8 K/mm3 (4.5-10.0)
[2024-04-15 19:46] LABS: Hemoglobin 5.8 g/dL (14.0-18.0); Platelet Count Result 38 k/mm3 (150-375)
[2024-04-15 19:52] LABS: Anisocytosis 1+; Band Neutrophils Percent 4 % (0-6); Lymphocytes Absolute Manual 0.35 K/mm3 (1.1-4.5); Monocytes Absolute Manual 0.03 K/mm3 (0.1-0.90); Monocytes Percent Manual 4 % (3-9); Neutrophils Absolute Manual 0.41 K/mm3 (1.3-6.7); Neutrophils Percent Manual 48 % (46-73); Platelet Estimate Decreased (Adequate); Total Cells Counted 25
[2024-04-15 19:53] LABS: Hypochromasia 2+; Microcytosis 1+ (NORMAL); Ovalocytes 1+; Schistocytes None Seen; Smudge Cells PRESENT
[2024-04-15] MEDS: ACETAMINOPHEN 500 MG TABLET 1000 MG PO (20:01)
[2024-04-15 20:02] LABS: Influenza A QL RT-PCR Negative (Negative); Influenza B QL RT-PCR Negative (Negative); SARS-CoV-2 RNA PCR Negative (Negative)
[2024-04-15 20:20] LABS: Procalcitonin 4.6 ng/mL
[2024-04-15 20:22] LABS: CRP 17.8 mg/dL (<1.0)
[2024-04-15] MEDS: SODIUM CHLORIDE 0.9% IV 250 ML 30 ML IV CONT (20:22)
[2024-04-15 20:26] LABS: Influenza A QL RT-PCR Negative (Negative); Influenza B QL RT-PCR Negative (Negative); RSV RNA, RT-PCR Negative (Negative); SARS-CoV-2 RNA PCR Negative (Negative)
[2024-04-15] MEDS: AMIODARONE 150 MG/D5W 100 ML 150 MG/100 ML BAG 600 MG IV CONT (22:15)
[2024-04-15] MEDS: AMIODARONE 360 MG/D5W 200 ML 360 MG/200 ML BAG 33.33 MG IV CONT (22:24)
[2024-04-15] MEDS: PHENYLEPHRINE 1,000 MCG/10 ML SYRINGE 200 MCG IV PUSH (22:28)
[2024-04-15] MEDS: PHENYLEPHRINE HCL INJ 50 MG in DEXTROSE 5% IN WATER 250 ML/245 ML BAG 12 ML IV CONT (22:37)
--- NOTE | 2024-04-15 22:53 | P.HP_ITS ---
H&P: HPI History of Present Illness Date/Time: 04/15/24 22:53 Chief Complaint: generalized weakness Narrative: This is a 63-year-old male with past medical history significant for recently diagnosed myelodysplastic syndrome/ acute myelogenous leukemia, pancytopenia, rheumatoid arthritis, congestive heart failure ejection fraction 35%, hypothyroidism, paroxysmal atrial fibrillation, chronic pain syndrome. Patient has started chemotherapy treatment. Patient presents to the emergency room with generalized weakness, difficulty breathing, patient was brought via EMS he was tachypneic, upon arrival. Patient has been having chills, had a fever in the emergency room. Preliminary workup was significant for hemoglobin of 5 hematocrit of 14, platelet count 29067 WBC count 0.5. Patient was started on blood transfusion and admitted to intensive care unit. EXAMINATION: XR chest 1V portable Exam Date/Time: 04/15/2024 19:19 CARBON LAMP CLEANER HISTORY: shortness of breath, weak Comparison: 03/15/2024. RESULT: Lines, tubes, and devices: Left chest port, terminating in the distal SVC. Lungs and pleura: Mild diffuse reticular opacities with cuffing. Minimal bilateral costophrenic angle blunting. Cardiomediastinal silhouette: Stable. Other: No acute osseous or upper abdominal finding. IMPRESSION: Pulmonary opacities may represent mild interstitial edema. Likely small bilateral pleural effusions Review of Systems Review of Systems: Generalized weakness, Chills, fevers, shortness of breath. [facility] Past Medical History Medical History Anemia Chronic pain syndrome Related to RA. Heart failure with reduced ejection fraction echo in 06/2023 showed dilated cardiomyopathy with an EF of 30 to 35% Hypothyroidism Immunocompromised state due to drug therapy Iron deficiency Pancytopenia Paroxysmal atrial fibrillation Rheumatoid arthritis Surgical History Surgical History History of appendectomy Family History Family History Father Family history of malignant neoplasm Family history of diabetes mellitus in first degree relative Colon cancer Grandparent Family history of coronary artery disease Mother Acute myocardial infarction History of blood clots Grandparent Acute myocardial infarction Mother No problems noted. Sibling History of blood clots Sibling History of blood clots Sibling History of blood clots Social History Social History Social History: Surrogate medical decision maker: Isaura Palacios, spouse. Code status: Full code. Smoking packs per day: 1 Smoking cigarettes per day: 20.0 Years smoked: 54 Smoking pack-years: 54.00 Smoking status: Former smoker Tobacco type: cigarettes Second hand tobacco smoke exposure: Yes Smoking end date: 03/10/16 Alcohol intake: never Substance use: never Substance use type: does not use Do You Feel Safe in your Home?: Yes Lack of Transportation: No Lack of Food: Never True Current Housing: I Have Housing Concerned About Future Housing: No Difficulty Paying Gas/Electric Bills: No Difficulty Paying for Meds: No Currently Unemployed: No Education: High School Diploma/GED Difficulty w/ Childcare or Family Care: No Living arrangements: with family Additional living arrangements comments: Lives with spouse and family in [place]. 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 Spiritual care concerns: No Meds Home Medications and Allergies Home Medications ?Medication ?Instructions ?Recorded ?Confirmed ?Type empagliflozin 10 mg tablet 10 mg PO DAILY #30 tabs 07/03/23 04/16/24 Rx metoprolol succinate 50 mg 50 mg PO QAM #30 tabs 07/03/23 04/16/24 Rx tablet,extended release 24 hr sacubitril 24 mg-valsartan 26 mg 1 tab PO Q12HR #60 tabs 07/03/23 04/16/24 Rx tablet (Entresto) spironolactone 25 mg tablet 25 mg PO QAM #30 tabs 07/03/23 04/16/24 Rx ascorbic acid (vitamin C) 1,000 mg 1 g PO DAILY 12/29/23 03/24/24 History capsule cholecalciferol (vitamin D3) 25 400 unit PO DAILY 12/29/23 03/24/24 History mcg (1,000 unit) capsule ferrous sulfate 325 mg (65 mg 325 mg PO BID 02/17/24 03/24/24 History iron) tablet,delayed release hydrocodone 7.5 mg-acetaminophen 1 tablet PO Q6H PRN Pain #10 tabs 02/24/24 04/16/24 Rx 325 mg tablet levothyroxine 75 mcg capsule 75 mcg PO DAILY 30 days #30 caps 02/24/24 03/24/24 Rx albuterol 90 mcg-budesonide 80 2 inh inhalation ONCE #5.9 grams 03/01/24 03/24/24 Rx mcg/actuation HFA aerosol inhaler (Airsupra) fluoxetine 20 mg capsule 20 mg PO DAILY #30 caps 03/01/24 04/16/24 Rx acyclovir 400 mg tablet 400 mg PO BID 03/20/24 04/16/24 History cyanocobalamin (vitamin B-12) 1,000 mcg PO DAILY 03/20/24 03/24/24 History 1,000 mcg tablet (Vitamin B-12) ibuprofen 200 mg tablet 200 mg PO Q6H PRN Pain, Mild 03/20/24 03/24/24 History multivitamin 1 tablet PO DAILY 03/20/24 03/24/24 History trazodone 50 mg tablet 50 mg PO QHS #30 tabs 03/21/24 04/16/24 Rx alprazolam 0.5 mg tablet 0.5 mg PO QHS PRN Anxiety #30 tabs 04/06/24 04/16/24 Rx Allergies Allergy/AdvReac Type Severity Reaction Status Date / Time heparin AdvReac Unknown Other Verified 04/10/24 12:01 Vital Signs Vital Signs - 24 hr 04/15/24 18:58 04/15/24 19:00 04/15/24 19:00 Temperature 100.8 F H Pulse Rate 105 H 104 H Respiratory Rate 43 H 36 H Blood Pressure 96/48 L 96/48 L Pulse Oximetry 99 100 100 Oxygen Delivery Nasal Cannula Oxygen Flow Rate 2 04/15/24 19:07 04/15/24 19:09 04/15/24 19:13 Temperature Pulse Rate 111 H 100 100 Respiratory Rate 49 H 36 H 55 H Blood Pressure 91/46 L 89/49 L 88/44 L Pulse Oximetry 96 96 Oxygen Delivery Oxygen Flow Rate 04/15/24 19:18 04/15/24 19:20 04/15/24 19:25 Temperature 99.6 F Pulse Rate 92 101 H 100 Respiratory Rate 36 H 31 H 37 H Blood Pressure 87/58 L 83/46 L 89/51 L Pulse Oximetry 93 95 97 Oxygen Delivery Oxygen Flow Rate 04/15/24 19:38 04/15/24 19:42 04/15/24 19:45 Temperature Pulse Rate 102 H 104 H 100 Respiratory Rate 33 H 38 H 38 H Blood Pressure 83/53 L 86/47 L 85/48 L Pulse Oximetry Oxygen Delivery Oxygen Flow Rate 04/15/24 19:47 04/15/24 19:50 04/15/24 20:00 Temperature Pulse Rate 100 100 100 Respiratory Rate 31 H 36 H 40 H Blood Pressure 84/49 L 82/47 L Pulse Oximetry 94 98 Oxygen Delivery Oxygen Flow Rate 04/15/24 20:05 04/15/24 20:13 04/15/24 20:15 Temperature 99.5 F Pulse Rate 102 H 102 H 103 H Respiratory Rate 36 H 43 H 40 H Blood Pressure 92/44 L 89/48 L 96/46 L Pulse Oximetry 97 100 100 Oxygen Delivery Oxygen Flow Rate 04/15/24 20:16 04/15/24 20:30 04/15/24 20:34 Temperature 101.6 F H Pulse Rate 102 H 105 H 106 H Respiratory Rate 34 H 38 H 38 H Blood Pressure 95/45 L 95/45 L Pulse Oximetry 100 100 100 Oxygen Delivery Oxygen Flow Rate 04/15/24 20:37 04/15/24 20:45 04/15/24 20:50 Temperature 101.9 F H Pulse Rate 107 H 110 H 107 H Respiratory Rate 25 H 45 H 28 H Blood Pressure 96/50 L 90/49 L 90/49 L Pulse Oximetry 100 100 98 Oxygen Delivery Oxygen Flow Rate 04/15/24 20:50 04/15/24 21:00 04/15/24 21:05 Temperature 101.9 F H Pulse Rate 108 H 111 H 101 H Respiratory Rate 43 H 45 H 30 H Blood Pressure 99/45 L 99/45 L Pulse Oximetry 97 95 Oxygen Delivery Oxygen Flow Rate 04/15/24 21:09 04/15/24 21:09 04/15/24 21:14 Temperature 100.5 F H Pulse Rate 106 H 108 H 108 H Respiratory Rate 25 H 25 H 47 H Blood Pressure 90/41 L 90/41 L 90/55 L Pulse Oximetry 95 96 95 Oxygen Delivery Oxygen Flow Rate 04/15/24 21:16 04/15/24 21:30 04/15/24 21:45 Temperature Pulse Rate 108 H 111 H 142 H Respiratory Rate 35 H 37 H 41 H Blood Pressure 91/50 L 92/49 L 83/52 L Pulse Oximetry 95 94 Oxygen Delivery Oxygen Flow Rate 04/15/24 21:52 04/15/24 22:00 04/15/24 22:09 Temperature 100.2 F H Pulse Rate 141 H 154 H 140 H Respiratory Rate 40 H 27 H 30 H Blood Pressure 77/48 L 92/60 L 99/52 L Pulse Oximetry 100 Oxygen Delivery Oxygen Flow Rate 04/15/24 22:10 04/15/24 22:15 04/15/24 22:15 Temperature Pulse Rate 146 H 136 H 126 H Respiratory Rate 43 H 29 H Blood Pressure 99/52 L 81/52 L 110/71 Pulse Oximetry 98 Oxygen Delivery Oxygen Flow Rate 04/15/24 22:21 04/15/24 22:24 04/15/24 22:26 Temperature 100.4 F H Pulse Rate 140 H 140 H 138 H Respiratory Rate 30 H Blood Pressure 110/71 110/71 94/59 L Pulse Oximetry 97 Oxygen Delivery Oxygen Flow Rate 04/15/24 22:28 04/15/24 22:35 04/15/24 22:37 Temperature Pulse Rate 118 H 122 H 128 H Respiratory Rate 37 H 26 H Blood Pressure 73/52 L 95/85 L 94/58 L Pulse Oximetry Oxygen Delivery Oxygen Flow Rate 04/15/24 22:40 04/15/24 22:45 Temperature 100.1 F H Pulse Rate 142 H 125 H Respiratory Rate 41 H 38 H Blood Pressure 84/53 L 90/48 L Pulse Oximetry 95 Oxygen Delivery Oxygen Flow Rate Exam Narrative: Patient is laying in bed Const: General: comfortable, no acute distress, well developed, alert, awake, ill appearing and edematous Nutritional Appearance: average body habitus Orientation/consciousness: patient oriented x3 Other: generalized pallor HENMT: Head: normal to inspection, normocephalic and atraumatic Ears: hearing grossly normal bilaterally Face/Nose/Sinus: normal facial exam Face and sinus: normal facial exam Eyes: General: appearance normal, both eyes and all related structures Pupils: Equal, round and reactive pupils present EOM: EOMs intact bilaterally Neck: Neck: full ROM, no lymphadenopathy and no JVD Thyroid: thyroid normal Lymphatic: no lymphadenopathy noted Resp: Effort & Inspection: normal respiratory effort and able to speak in complete sentences Auscultation: clear to auscultation bilaterally Cardio: Jugular venous distension: no JVD Rate: regular rate Rhythm: regular rhythm Heart sounds: S1 normal heart sound present and S2 normal heart sound present GI: GI Palp: Yes Soft to palpation and Yes No hepatosplenomegaly present : General: Yes deferred Skin: Rashes: no rashes Wounds: no wounds Neuro: General: patient oriented x3 and CN's II-XI intact bilaterally Cranial nerves: Yes CN's II-XII intact bilaterally and Yes Equal, round and reactive pupils present Cognition (Neuro): normal cognition Speech: normal speech Gait exam (Neuro): Unable to assess gait Motor exam (neuro): 5/5 motor strength present throughout Extrem: General: normal to inspection, full ROM, no joint enlargement and no pedal edema Other: bilateral lower extremity edema H&P: Results Labs Labs: Short CBC 04/15/24 Range/Units 19:17 WBC 0.8 L* (4.5-10.0) K/mm3 Hgb 5.8 L* (14.0-18.0) g/dL Hct 17.0 L* (42.0-52.0) % Plt Count 38 L D (150-375) k/mm3 BMP 04/15/24 19:17 Sodium 123 L Potassium 4.4 Chloride 97 L Carbon Dioxide 19 L BUN 35 H D Creatinine 1.20 Glucose 121 H Calcium 8.1 L Liver Function 04/15/24 Range/Units 19:17 Total Bilirubin 1.0 (0.2-1.3) mg/dL AST 20 (17-59) U/L ALT 15 (6-50) U/L Alkaline Phosphatase 77 (38-126) U/L Albumin 2.9 L (3.5-5.1) g/dL Assessment and Plan Assessment and plan (1) Neutropenic fever: Code(s): D70.9 - Neutropenia, unspecified; R50.81 - Fever presenting with conditions classified elsewhere Status: Acute Assessment and Plan: admit to intensive care unit started on broad-spectrum antibiotics cultures in progress (2) Septic shock: Code(s): A41.9 - Sepsis, unspecified organism; R65.21 - Severe sepsis with septic shock Status: Acute Assessment and Plan: patient started on vasopressors (3) Pneumonia: Code(s): J18.9 - Pneumonia, unspecified organism Status: Acute Assessment and Plan: on broad-spectrum antibiotics (4) Leukemia: Code(s): C95.90 - Leukemia, unspecified not having achieved remission Status: Acute Assessment and Plan: undergoing chemotherapy (5) Atrial fibrillation with rapid ventricular response: Code(s): I48.91 - Unspecified atrial fibrillation Status: Acute Assessment and Plan: rate controlled heart rate in the 100 and 10s (6) MDS (myelodysplastic syndrome): Code(s): D46.9 - Myelodysplastic syndrome, unspecified Status: Acute Assessment and Plan: follow-up in outpatient setting undergoing chemotherapy (7) Heart failure with reduced ejection fraction: Code(s): I50.20 - Unspecified systolic (congestive) heart failure Status: Acute Assessment and Plan: repeat echocardiogram if more than 6 months (8) Pancytopenia: Code(s): D61.818 - Other pancytopenia Status: Acute Assessment and Plan: continue to monitor Hematology-Oncology consult (9) Cardiomyopathy: Code(s): I42.9 - Cardiomyopathy, unspecified Status: Acute Assessment and Plan: continue to monitor on Entresto (10) Chronic pain syndrome: Code(s): G89.4 - Chronic pain syndrome Status: Acute Assessment and Plan: pain management (11) Rheumatoid arthritis: Code(s): M06.9 - Rheumatoid arthritis, unspecified Status: Acute Assessment and Plan: not on DMARDs Hospitalist MIPS Advance Care Plan I have confirmed that the patient's Advanced Care Plan is present, code status is documented, or surrogate decision maker is listed in patient medical record.: Yes Medication Reconciliation I have utilized all available resources to obtain, update and review the patients current medications (includes all prescriptions, OTC, herbals, cannabis, and nutritional supplements).: Yes
--- NOTE | 2024-04-15 22:57 | PC.NURSE ---
Doctors order for straight cath. Pt refused straight cath 3 attempts. Pt states he will pee on his own, refuses to be straight cathed.
[2024-04-15 23:51] LABS: Lactic Acid Reflex 3.2 mmol/L (0.7-2.0)
[2024-04-16] VITALS (56 sets, daily range): BP systolic 77–127; BP diastolic 47–97; PULSE 61–156; RESP 12–51; TEMP 36.3–38.1; O2SAT 90–100; BMI 33.0
[2024-04-16] MEDS: VANCOMYCIN 1,250 MG/NS 250 ML 1,250 MG/250 ML BAG 166.67 MG IVPB ×2 (01:37→03:02)
[2024-04-16 01:48] LABS: Add Urine Microscopic? YES; Appearance Urine Clear (Clear); Bacteria Urine None Seen /hpf; Bilirubin Urine Negative (Negative); Blood Urine Negative (Negative); Color Urine Yellow (Yellow); Glucose Urine UA 3+ mg/dL (Negative); Ketones Urine Negative (Negative); Leukocyte Esterase Ur Negative LEU/UL (Negative); Need Manual Microscopic Reviewed; Nitrate Urine Negative (Negative); Non Pathogenic Casts 0-2; Protein Urine Trace mg/dL (Negative); RBC Urine 0-2 /hpf (0-2); Specific Grav Ur 1.012 (1.001-1.035); Squamous Epithelial Cell Urine None Seen /hpf (Few); Urobilinogen Urine 0.2 mg/dL (<2.0); WBC Urine 0-5 /hpf (0-3); pH Urine 5.5 (5.0-9.0)
[2024-04-16 02:09] LABS: MRSA (PCR) NOT DETECTED (NOT DETECTE)
[2024-04-16 02:42] LABS: Reflex Lactic Acid Yes or No Add Lactic
--- NOTE | 2024-04-16 02:55 | ADMGEN ---
This patient, Taiwo Palacios Sr., was admitted to Intensive Care Unit-3 on 04/15/24 at 2345. Patient/family oriented to hospital policies and general routines including ID bracelet, bed and alarms, visiting hours, pain management, procedures, bathroom and other care routines, personal items, smoking policy, room service/diet, and visiting hours. Information on how to activate the Rapid Response Team has been discussed. Patient/Family are encouraged to report perceived risks to care and to ask questions if they do not understand what they are told or what they should do.
[2024-04-16] MEDS: AMIODARONE 360 MG/D5W 200 ML 360 MG/200 ML BAG 16.67 MG IV CONT (04:12)
[2024-04-16] MEDS: PHENYLEPHRINE HCL INJ 50 MG in DEXTROSE 5% IN WATER 250 ML/245 ML BAG 42 ML IV CONT (06:20)
[2024-04-16 06:35] LABS: Basophils Percent Auto 2.8 % (0.2-1.2); Hematocrit 21.8 % (42.0-52.0); Hemoglobin 7.5 g/dL (14.0-18.0); Immature Granulocyte Absolute 0.11 K/mm3 (0.00-0.031); Immature Granulocyte Percent A 10.3 % (0-0.5); Immature Platelet Fraction Pct 5.4 % (0.9-11.2); Lymphocytes Absolute Auto 0.32 K/mm3 (0.9-3.2); Lymphocytes Percent Auto 29.9 % (18.3-44.2); Mean Corpuscular HGB Conc 34.4 g/dl (32-36); Mean Corpuscular Hemoglobin 29.2 pg (26-34); Mean Corpuscular Volume 84.8 fl (80-100); Mean Platelet Volume 9.7 fl (7.4-10.4); Monocytes Absolute Auto 0.1 K/mm3 (0.1-0.6); Monocytes Percent Auto 8.4 % (2.6-8.5); Neutrophils Absolute Auto 0.5 K/mm3 (1.3-6.7); Neutrophils Percent Auto 48.6 % (45.5-73.1); Platelet Count Result 41 k/mm3 (150-375); Red Blood Count 2.57 M/mm3 (4.6-6.20); Red Cell Distribution Width 17.2 % (11.5-14.5)
[2024-04-16 06:47] LABS: Anion Gap 8 mmol/L (4-12); Blood Urea Nitrogen 30 mg/dL (9-20); Carbon Dioxide 17 mmol/L (22-30); Chloride 102 mmol/L (98-107); Estimated CRCL calculation 86 ml/min; Estimated Glomerular Filt Rate > 60; Glucose 132 mg/dL (65-110); Lactic Acid 2.6 mmol/L (0.7-2.0); Potassium 4.3 mmol/L (3.4-5.0); Sodium 127 mmol/L (137-145)
[2024-04-16 07:19] LABS: White Blood Count 1.1 K/mm3 (4.5-10.0)
[2024-04-16] MEDS: PHENYLEPHRINE HCL INJ 50 MG in DEXTROSE 5% IN WATER 250 ML/245 ML BAG 39 ML IV CONT (07:55)
[2024-04-16] MEDS: SODIUM BICARBONATE 8.4% 150 MEQ in DEXTROSE 5% 1,000 ML 950 ML 50 MEQ IV CONT (08:20)
[2024-04-16] MEDS: PANTOPRAZOLE SODIUM IV 40 MG VIAL IV PUSH ×2 (08:20→21:11)
[2024-04-16] MEDS: CEFEPIME 2 GM/NS 50 ML 2 GM/50 ML BAG IVPB ×2 (08:31→16:21)
[2024-04-16] MEDS: ACYCLOVIR 400 MG TABLET PO ×2 (08:34→16:21)
--- NOTE | 2024-04-16 09:06 | P.CONIN_ITS ---
Assessment and Plan Assessment and plan (1) Septic shock: Code(s): A41.9 - Sepsis, unspecified organism; R65.21 - Severe sepsis with septic shock Status: Acute Assessment and Plan: Septic shock likely related to pneumonia, also could be related to bacteremia given patient has neutropenic fever -continue cefepime, vancomycin,( 04/15) - will add doxycycline for atypical coverage(04/16) -ANC 0.5 -urine output has been adequate, creatinine is stable and improved -lactic acid trending down, continue to monitor -procalcitonin was 4.6 and C-reactive protein was 17.8 -04/15: Blood cultures obtained and pending -continue to wean Owen-Synephrine to maintain MAP > 65 mmHg for adequate end organ perfusion (2) Pneumonia: Code(s): J18.9 - Pneumonia, unspecified organism Status: Acute Assessment and Plan: Chest x-ray showed bilateral pulmonary diffuse reticular opacities R > L -treatment is above (3) Paroxysmal atrial fibrillation with rapid ventricular response: Code(s): I48.0 - Paroxysmal atrial fibrillation Status: Acute Assessment and Plan: Has a history of paroxysmal AFib, was in AFib RVR in the ER, given septic shock patient was started on amiodarone bolus and infusion -currently in sinus rhythm, rate controlled (4) Neutropenic fever: Code(s): D70.9 - Neutropenia, unspecified; R50.81 - Fever presenting with conditions classified elsewhere Status: Acute Assessment and Plan: Neutropenic fevers likely related to chemotherapy which was done about 3 weeks ago. Patient has not been feeling well for about a week, complained of generalized weakness low-grade fevers -continue treatment as above -will give a dose of filgrastim -neutropenic precautions (5) Pancytopenia: Code(s): D61.818 - Other pancytopenia Status: Acute Assessment and Plan: History of pancytopenia likely related to myelodysplastic syndrome leukemia, chemotherapy -follows with Dr. Tomlin, who will be consulted -continue to treat underlying cause for now -transfuse as needed (6) MDS (myelodysplastic syndrome): Code(s): D46.9 - Myelodysplastic syndrome, unspecified Status: Acute Assessment and Plan: Patient with myelodysplastic syndrome with pancytopenia -consulted heme Onc (7) Leukemia: Code(s): C95.90 - Leukemia, unspecified not having achieved remission Status: Acute Assessment and Plan: Status post chemotherapy, Heme-Onc to follow (8) Rheumatoid arthritis: Code(s): M06.9 - Rheumatoid arthritis, unspecified Status: Acute Assessment and Plan: Tylenol for pain (9) Heart failure with reduced ejection fraction: Code(s): I50.20 - Unspecified systolic (congestive) heart failure Status: Acute Assessment and Plan: HFrEF with EF of 30-35% -cardiomyopathy -On Jardiance, metoprolol, Entresto, spironolactone at home -hold all these medications due to patient in septic shock, hypotension on vasopressors 06/29/2023 echocardiogram Summary 1. Definity contrast administered improved wall motion interpretation. 2. Left ventricular chamber dimension is severely enlarged. 3. Left ventricular systolic function is severely globally reduced, estimated at 30-35%. 4. The left ventricular diastolic function is abnormal. 5. E/e' 13 is mildly elevated. 6. Left atrial chamber dimension is severely enlarged. 7. There is mild mitral valve regurgitation. 8. There is trace tricuspid valve regurgitation. 9. No pulmonary hypertension, estimated pulmonary arterial systolic pressure is 28 mmHg. Plan DVT prophylaxis: SCDs, no chemoprophylaxis due to thrombocytopenia, anemia Stress ulcer prophylaxis: Protonix IV q.12 hours Nutrition: NPO with sips, will check with family with kind of diet he takes at home, will start clears and advanced to heart healthy as tolerated Code Status: Full code Critical Care Time Spent: 49 minutes Due to a high probability of clinically significant, life threatening deterioration, the patient required my highest level of preparedness to intervene emergently and I personally spent this critical care time directly and personally managing the patient. This critical care time included obtaining a history; examining the patient; pulse oximetry; ordering and review of studies; arranging urgent treatment with development of a management plan; evaluation of patient's response to treatment; frequent reassessment; and discussions with other providers. It was exclusive of separately billable procedures and treating other patients and teaching time. Please see Assessment and Plan section and the rest of the note for further information on patient assessment and treatment This dictation may have been done utilizing a voice recognition system. Attempts have been made to correct errors. However, there may be uncorrected grammatical, spelling, and recognitions errors present. 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 is a 63 year old male with past medical history of myelodysplastic syndrome, leukemia currently undergoing chemotherapy with laceration 3 weeks prior to admission. History of HFrEF with EF of 30-35%, Paroxysmal A.fib, Hypothyroidism, Pancytopenia, RA, iron deficiency anemia presented to the ED with fevers, SOB, weakness. Patient has been having a gradual decline for last 1 week. He has had outpatient blood transfusion on 04/10/2024. He was complaining of fevers, chills, shortness of breath for the last 1 week along with generalized weakness and pain secondary to his rheumatoid arthritis. In the ER patient was found to be hypotensive despite 30 cc/kg IV fluid bolus, patient was given vancomycin and cefepime, lactic acid were elevated with repeat lactic acid trending down. Patient also was in AFib RVR and responded well to fluids, started on phenylephrine and amiodarone bolus and infusion for his AFib RVR. Chest x-ray was suspicious for pneumonia. Patient was transferred to the ICU for further management Patient seen and examined in the ICU this morning, is awake, alert, oriented, able to answer questions and follows simple commands in all extremities, denies any chest pain, shortness on breath, abdominal pain, nausea, vomiting. Complains of his normal rheumatoid arthritic pain. Remains on phenylephrine and amiodarone infusion, urine output has been adequate. Review of Systems 2 Review of Systems: All systems reviewed & are unremarkable except as noted in HPI and below PMFSH Past Medical History Medical History Anemia Chronic pain syndrome Related to RA. Heart failure with reduced ejection fraction echo in 06/2023 showed dilated cardiomyopathy with an EF of 30 to 35% Hypothyroidism Immunocompromised state due to drug therapy Iron deficiency Pancytopenia Paroxysmal atrial fibrillation Rheumatoid arthritis Surgical History Surgical History History of appendectomy Family History Family History Father Family history of malignant neoplasm Family history of diabetes mellitus in first degree relative Colon cancer Grandparent Family history of coronary artery disease Mother Acute myocardial infarction History of blood clots Grandparent Acute myocardial infarction Mother No problems noted. Sibling History of blood clots Sibling History of blood clots Sibling History of blood clots Social History Social History Social History: Surrogate medical decision maker: Isaura Palacios, spouse. Code status: Full code. Smoking packs per day: 1 Smoking cigarettes per day: 20.0 Years smoked: 54 Smoking pack-years: 54.00 Smoking status: Former smoker Tobacco type: cigarettes Second hand tobacco smoke exposure: Yes Smoking end date: 03/10/16 Alcohol intake: never Substance use: never Substance use type: does not use Do You Feel Safe in your Home?: Yes Lack of Transportation: No Lack of Food: Never True Current Housing: I Have Housing Concerned About Future Housing: No Difficulty Paying Gas/Electric Bills: No Difficulty Paying for Meds: No Currently Unemployed: No Education: High School Diploma/GED Difficulty w/ Childcare or Family Care: No Living arrangements: with family Additional living arrangements comments: Lives with spouse and family in [place]. 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 Spiritual care concerns: No Meds Home Medications and Allergies Home Medications ?Medication ?Instructions ?Recorded ?Confirmed ?Type empagliflozin 10 mg tablet 10 mg PO DAILY #30 tabs 07/03/23 04/16/24 Rx metoprolol succinate 50 mg 50 mg PO QAM #30 tabs 07/03/23 04/16/24 Rx tablet,extended release 24 hr sacubitril 24 mg-valsartan 26 mg 1 tab PO Q12HR #60 tabs 07/03/23 04/16/24 Rx tablet (Entresto) spironolactone 25 mg tablet 25 mg PO QAM #30 tabs 07/03/23 04/16/24 Rx ascorbic acid (vitamin C) 1,000 mg 1 g PO DAILY 12/29/23 04/16/24 History capsule cholecalciferol (vitamin D3) 25 400 unit PO DAILY 12/29/23 04/16/24 History mcg (1,000 unit) capsule ferrous sulfate 325 mg (65 mg 325 mg PO BID 02/17/24 04/16/24 History iron) tablet,delayed release hydrocodone 7.5 mg-acetaminophen 1 tablet PO Q6H PRN Pain #10 tabs 02/24/24 04/16/24 Rx 325 mg tablet levothyroxine 75 mcg capsule 75 mcg PO DAILY 30 days #30 caps 02/24/24 04/16/24 Rx albuterol 90 mcg-budesonide 80 2 inh inhalation ONCE #5.9 grams 03/01/24 04/16/24 Rx mcg/actuation HFA aerosol inhaler (Airsupra) fluoxetine 20 mg capsule 20 mg PO DAILY #30 caps 03/01/24 04/16/24 Rx acyclovir 400 mg tablet 400 mg PO BID 03/20/24 04/16/24 History trazodone 50 mg tablet 50 mg PO QHS #30 tabs 03/21/24 04/16/24 Rx alprazolam 0.5 mg tablet 0.5 mg PO QHS PRN Anxiety #30 tabs 04/06/24 04/16/24 Rx Allergies Allergy/AdvReac Type Severity Reaction Status Date / Time heparin AdvReac Unknown Other Verified 04/10/24 12:01 Vital Signs Vital Signs - 24 hr 04/15/24 18:58 04/15/24 19:00 04/15/24 19:00 Temperature 100.8 F H Pulse Rate 105 H 104 H Respiratory Rate 43 H 36 H Blood Pressure 96/48 L 96/48 L Pulse Oximetry 99 100 100 Oxygen Delivery Nasal Cannula Oxygen Flow Rate 2 04/15/24 19:07 04/15/24 19:09 04/15/24 19:13 Temperature Pulse Rate 111 H 100 100 Respiratory Rate 49 H 36 H 55 H Blood Pressure 91/46 L 89/49 L 88/44 L Pulse Oximetry 96 96 Oxygen Delivery Oxygen Flow Rate 04/15/24 19:18 04/15/24 19:20 04/15/24 19:25 Temperature 99.6 F Pulse Rate 92 101 H 100 Respiratory Rate 36 H 31 H 37 H Blood Pressure 87/58 L 83/46 L 89/51 L Pulse Oximetry 93 95 97 Oxygen Delivery Oxygen Flow Rate 04/15/24 19:38 04/15/24 19:42 04/15/24 19:45 Temperature Pulse Rate 102 H 104 H 100 Respiratory Rate 33 H 38 H 38 H Blood Pressure 83/53 L 86/47 L 85/48 L Pulse Oximetry Oxygen Delivery Oxygen Flow Rate 04/15/24 19:47 04/15/24 19:50 04/15/24 20:00 Temperature Pulse Rate 100 100 100 Respiratory Rate 31 H 36 H 40 H Blood Pressure 84/49 L 82/47 L Pulse Oximetry 94 98 Oxygen Delivery Oxygen Flow Rate 04/15/24 20:05 04/15/24 20:13 04/15/24 20:15 Temperature 99.5 F Pulse Rate 102 H 102 H 103 H Respiratory Rate 36 H 43 H 40 H Blood Pressure 92/44 L 89/48 L 96/46 L Pulse Oximetry 97 100 100 Oxygen Delivery Oxygen Flow Rate 04/15/24 20:16 04/15/24 20:30 04/15/24 20:34 Temperature 101.6 F H Pulse Rate 102 H 105 H 106 H Respiratory Rate 34 H 38 H 38 H Blood Pressure 95/45 L 95/45 L Pulse Oximetry 100 100 100 Oxygen Delivery Oxygen Flow Rate 04/15/24 20:37 04/15/24 20:45 04/15/24 20:50 Temperature 101.9 F H Pulse Rate 107 H 110 H 107 H Respiratory Rate 25 H 45 H 28 H Blood Pressure 96/50 L 90/49 L 90/49 L Pulse Oximetry 100 100 98 Oxygen Delivery Oxygen Flow Rate 04/15/24 20:50 04/15/24 21:00 04/15/24 21:05 Temperature 101.9 F H Pulse Rate 108 H 111 H 101 H Respiratory Rate 43 H 45 H 30 H Blood Pressure 99/45 L 99/45 L Pulse Oximetry 97 95 Oxygen Delivery Oxygen Flow Rate 04/15/24 21:09 04/15/24 21:09 04/15/24 21:14 Temperature 100.5 F H Pulse Rate 106 H 108 H 108 H Respiratory Rate 25 H 25 H 47 H Blood Pressure 90/41 L 90/41 L 90/55 L Pulse Oximetry 95 96 95 Oxygen Delivery Oxygen Flow Rate 04/15/24 21:16 04/15/24 21:30 04/15/24 21:45 Temperature Pulse Rate 108 H 111 H 142 H Respiratory Rate 35 H 37 H 41 H Blood Pressure 91/50 L 92/49 L 83/52 L Pulse Oximetry 95 94 Oxygen Delivery Oxygen Flow Rate 04/15/24 21:52 04/15/24 22:00 04/15/24 22:09 Temperature 100.2 F H Pulse Rate 141 H 154 H 140 H Respiratory Rate 40 H 27 H 30 H Blood Pressure 77/48 L 92/60 L 99/52 L Pulse Oximetry 100 Oxygen Delivery Oxygen Flow Rate 04/15/24 22:10 04/15/24 22:15 04/15/24 22:15 Temperature Pulse Rate 146 H 136 H 126 H Respiratory Rate 43 H 29 H Blood Pressure 99/52 L 81/52 L 110/71 Pulse Oximetry 98 Oxygen Delivery Oxygen Flow Rate 04/15/24 22:21 04/15/24 22:24 04/15/24 22:26 Temperature 100.4 F H Pulse Rate 140 H 140 H 138 H Respiratory Rate 30 H Blood Pressure 110/71 110/71 94/59 L Pulse Oximetry 97 Oxygen Delivery Oxygen Flow Rate 04/15/24 22:28 04/15/24 22:35 04/15/24 22:37 Temperature Pulse Rate 118 H 122 H 128 H Respiratory Rate 37 H 26 H Blood Pressure 73/52 L 95/85 L 94/58 L Pulse Oximetry Oxygen Delivery Oxygen Flow Rate 04/15/24 22:40 04/15/24 22:45 04/15/24 23:20 Temperature 100.1 F H 100.0 F H Pulse Rate 142 H 125 H 118 H Respiratory Rate 41 H 38 H 28 H Blood Pressure 84/53 L 90/48 L 87/48 L Pulse Oximetry 95 96 Oxygen Delivery Oxygen Flow Rate 04/16/24 00:00 04/16/24 00:00 04/16/24 00:01 Temperature Pulse Rate 125 H 113 H 125 H Respiratory Rate Blood Pressure 80/51 L 80/51 L Pulse Oximetry Oxygen Delivery Oxygen Flow Rate 04/16/24 00:20 04/16/24 00:20 04/16/24 00:42 Temperature 100.6 F H 99.6 F Pulse Rate 114 H 130 H 112 H Respiratory Rate 35 H 37 H Blood Pressure 77/65 L 77/53 L 91/55 L Pulse Oximetry 98 99 Oxygen Delivery Oxygen Flow Rate 04/16/24 01:00 04/16/24 01:00 04/16/24 01:25 Temperature Pulse Rate 112 H 99 Respiratory Rate Blood Pressure 99/57 L 84/47 L Pulse Oximetry 97 Oxygen Delivery High Flow Nasal Cannula Oxygen Flow Rate 3 04/16/24 01:40 04/16/24 01:42 04/16/24 02:00 Temperature 99.5 F Pulse Rate 93 93 106 H Respiratory Rate 23 H Blood Pressure 85/51 L 85/59 L Pulse Oximetry 98 Oxygen Delivery Oxygen Flow Rate 04/16/24 02:00 04/16/24 02:00 04/16/24 02:00 Temperature Pulse Rate 106 H 93 93 Respiratory Rate 25 H Blood Pressure 88/63 L 88/63 L 88/63 L Pulse Oximetry 100 Oxygen Delivery Oxygen Flow Rate 04/16/24 02:15 04/16/24 02:42 04/16/24 03:30 Temperature 98.5 F 98.7 F Pulse Rate 106 H 101 H 91 Respiratory Rate 32 H 28 H Blood Pressure 103/93 H 100/60 100/97 H Pulse Oximetry 99 94 Oxygen Delivery Oxygen Flow Rate 04/16/24 04:00 04/16/24 04:00 04/16/24 04:00 Temperature 98.5 F Pulse Rate 66 66 71 Respiratory Rate 17 17 Blood Pressure 101/59 L Pulse Oximetry 97 97 Oxygen Delivery Nasal Cannula Oxygen Flow Rate 3 04/16/24 04:00 04/16/24 04:12 04/16/24 04:13 Temperature Pulse Rate 71 70 83 Respiratory Rate Blood Pressure 101/59 L 101/59 L 101/59 L Pulse Oximetry Oxygen Delivery Oxygen Flow Rate 04/16/24 06:00 04/16/24 06:00 04/16/24 06:00 Temperature Pulse Rate 69 69 69 Respiratory Rate 12 Blood Pressure 90/74 L 90/74 L Pulse Oximetry 100 Oxygen Delivery Oxygen Flow Rate 04/16/24 06:03 04/16/24 06:20 04/16/24 07:55 Temperature Pulse Rate 68 68 69 Respiratory Rate Blood Pressure 97/63 L 97/63 L 115/85 Pulse Oximetry Oxygen Delivery Oxygen Flow Rate 04/16/24 08:00 04/16/24 08:22 Temperature 97.4 F L Pulse Rate 68 68 Respiratory Rate 34 H Blood Pressure 118/65 114/85 Pulse Oximetry 99 Oxygen Delivery Oxygen Flow Rate Exam 2 Narrative: General: Ill-appearing gentleman in no acute distress HEENT:? Pupils equal and reactive, sclera is clear Neck:? Supple Respiratory:? Coarse breath sounds bilaterally right greater than left, adequate air entry, no wheezing Cardiac:? S1-S2 normal, regular rate and rhythm Abdomen:? Soft, nontender, protuberant, hypoactive bowel sounds Extremities:? Bilateral lower extremity pitting edema, palpable pedal pulses Neuro:? Patient is awake, alert, oriented, nonfocal, follows simple commands and answers to questions appropriately Skin:? Bruising noted Psych:? Flat affect, normal mentation Results Labs 04/16/24 06:22 04/16/24 06:22 Labs: Short CBC 04/15/24 04/16/24 Range/Units 19:17 06:22 WBC 0.8 L* 1.1 L* (4.5-10.0) K/mm3 Hgb 5.8 L* 7.5 L (14.0-18.0) g/dL Hct 17.0 L* 21.8 L (42.0-52.0) % Plt Count 38 L D 41 L (150-375) k/mm3 BMP 04/15/24 04/16/24 19:17 06:22 Sodium 123 L 127 L Potassium 4.4 4.3 Chloride 97 L 102 Carbon Dioxide 19 L 17 L BUN 35 H D 30 H Creatinine 1.20 0.90 Glucose 121 H 132 H Calcium 8.1 L 8.0 L Liver Function 04/15/24 Range/Units 19:17 Total Bilirubin 1.0 (0.2-1.3) mg/dL AST 20 (17-59) U/L ALT 15 (6-50) U/L Alkaline Phosphatase 77 (38-126) U/L Albumin 2.9 L (3.5-5.1) g/dL Urine 04/16/24 Range/Units 01:21 Urine Color Yellow (Yellow) Urine Appearance Clear (Clear) Urine pH 5.5 (5.0-9.0) Ur Specific [place] 1.012 (1.001-1.035) Urine Protein Trace (Negative) mg/dL Urine Glucose (UA) 3+ H (Negative) mg/dL Quality VTE Prophylaxis VTE prophylaxis: mechanical ordered If No VTE Prophylaxis Answer both mechanical and pharmacologic: Reason no pharmacologic proph: medical contraindication (Pancytopenia, anemia) thrombocytopenia Hospitalist MIPS Advance Care Plan I have confirmed that the patient's Advanced Care Plan is present, code status is documented, or surrogate decision maker is listed in patient medical record.: Yes Medication Reconciliation I have utilized all available resources to obtain, update and review the patients current medications (includes all prescriptions, OTC, herbals, cannabis, and nutritional supplements).: Yes
--- NOTE | 2024-04-16 11:54 | P.PNIM_ITS ---
Progress Note: A&P Assessment and Plan (1) Septic shock: Code(s): A41.9 - Sepsis, unspecified organism; R65.21 - Severe sepsis with septic shock Status: Acute Assessment and Plan: Septic shock likely related to pneumonia, also could be related to bacteremia given patient has neutropenic fever -continue cefepime, vancomycin, and Doxycycline -ANC 0.5 -urine output has been adequate, creatinine is stable and improved -lactic acid trending down, continue to monitor -procalcitonin was 4.6 and C-reactive protein was 17.8 -04/15: Blood cultures obtained and pending -continue to wean Owen-Synephrine to maintain MAP > 65 mmHg for adequate end organ perfusion (2) Pneumonia: Code(s): J18.9 - Pneumonia, unspecified organism Status: Acute Assessment and Plan: Chest x-ray showed bilateral pulmonary diffuse reticular opacities R > L -treatment is above (3) Paroxysmal atrial fibrillation with rapid ventricular response: Code(s): I48.0 - Paroxysmal atrial fibrillation Status: Acute Assessment and Plan: Has a history of paroxysmal AFib, was in AFib RVR in the ER, given septic shock patient was started on amiodarone bolus and infusion -currently in sinus rhythm, rate controlled (4) Neutropenic fever: Code(s): D70.9 - Neutropenia, unspecified; R50.81 - Fever presenting with conditions classified elsewhere Status: Acute Assessment and Plan: Neutropenic fevers likely related to chemotherapy which was done about 3 weeks ago. Patient has not been feeling well for about a week, complained of generalized weakness low-grade fevers -continue treatment as above -will give a dose of filgrastim -neutropenic precautions (5) Pancytopenia: Code(s): D61.818 - Other pancytopenia Status: Acute Assessment and Plan: History of pancytopenia likely related to myelodysplastic syndrome leukemia, chemotherapy -follows with Dr. Tomlin, who will be consulted -continue to treat underlying cause for now -transfuse as needed HB 7.5 s/p 2 unit pRBC, WBC 1.1, ANC 0.5, Plts 41 from 38 (6) MDS (myelodysplastic syndrome): Code(s): D46.9 - Myelodysplastic syndrome, unspecified Status: Acute Assessment and Plan: Patient with myelodysplastic syndrome with pancytopenia -consulted heme Onc (7) Leukemia: Code(s): C95.90 - Leukemia, unspecified not having achieved remission Status: Acute Assessment and Plan: Status post chemotherapy, Heme-Onc to follow (8) Rheumatoid arthritis: Code(s): M06.9 - Rheumatoid arthritis, unspecified Status: Acute Assessment and Plan: Tylenol for pain (9) Heart failure with reduced ejection fraction: Code(s): I50.20 - Unspecified systolic (congestive) heart failure Status: Acute Assessment and Plan: HFrEF with EF of 30-35% -cardiomyopathy -On Jardiance, metoprolol, Entresto, spironolactone at home -hold all these medications due to patient in septic shock, hypotension on vaso pressors ECHO from 06/29/23 EF 30-35 06/29/2023 echocardiogra Plan DVT prophylaxis: SCDs, no chemoprophylaxis due to thrombocytopenia, anemia Stress ulcer prophylaxis: Protonix IV q.12 hours Nutrition: NPO with sips, will check with family with kind of diet he takes at home, will start clears and advanced to heart healthy as tolerated Code Status: Full code Subjective Date/time seen: 04/16/24 11:54 Interval history: Patient comfortable at bedside WBC improving Review of Systems Review of Systems: Generalized weakness, Chills, fevers, shortness of breath. All systems reviewed & are unremarkable except as noted in HPI and below Exam Narrative: General: Ill-appearing gentleman in no acute distress HEENT:? Pupils equal and reactive, sclera is clear Neck:? Supple Respiratory:? Coarse breath sounds bilaterally right greater than left, adequate air entry, no wheezing Cardiac:? S1-S2 normal, regular rate and rhythm Abdomen:? Soft, nontender, protuberant, hypoactive bowel sounds Extremities:? Bilateral lower extremity pitting edema, palpable pedal pulses Neuro:? Patient is awake, alert, oriented, nonfocal, follows simple commands and answers to questions appropriately Skin:? Bruising noted Psych:? Flat affect, normal mentation Const: General: comfortable, no acute distress, well developed, alert, awake, ill appearing, average body habitus and edematous Nutritional Appearance: average body habitus and edematous Orientation/consciousness: patient oriented x3 Other: generalized pallor HENMT: Head: normal to inspection, normocephalic and atraumatic Ears: hearing grossly normal bilaterally Face/Nose/Sinus: normal facial exam Face and sinus: normal facial exam Eyes: General: appearance normal, both eyes and all related structures Pupils: Equal, round and reactive pupils present EOM: EOMs intact bilaterally Neck: Neck: full ROM, no lymphadenopathy and no JVD Thyroid: thyroid normal Lymphatic: no lymphadenopathy noted Resp: Effort & Inspection: normal respiratory effort and able to speak in complete sentences Auscultation: clear to auscultation bilaterally Cardio: Jugular venous distension: no JVD Rate: regular rate Rhythm: regular rhythm Heart sounds: S1 normal heart sound present and S2 normal heart sound present : General: Yes deferred Skin: Rashes: no rashes Wounds: no wounds Neuro: General: patient oriented x3, CN's II-XI intact bilaterally and Unable to assess gait Cranial nerves: Yes CN's II-XII intact bilaterally and Yes Eq ual, round and reactive pupils present Cognition (Neuro): normal cognition Speech: normal speech Gait exam (Neuro): Unable to assess gait Motor exam (neuro): 5/5 motor strength present throughout Extrem: General: normal to inspection, full ROM, no joint enlargement and no pedal edema Other: bilateral lower extremity edema Objective Data Vital Signs Vital Signs: Vital Signs - 24 hr 04/15/24 18:58 04/15/24 19:00 04/15/24 19:00 Temperature 100.8 F H Pulse Rate 105 H 104 H Respiratory Rate 43 H 36 H Blood Pressure 96/48 L 96/48 L Pulse Oximetry 99 100 100 Oxygen Delivery Nasal Cannula Oxygen Flow Rate 2 Fraction of Inspired Oxygen 04/15/24 19:07 04/15/24 19:09 04/15/24 19:13 Temperature Pulse Rate 111 H 100 100 Respiratory Rate 49 H 36 H 55 H Blood Pressure 91/46 L 89/49 L 88/44 L Pulse Oximetry 96 96 Oxygen Delivery Oxygen Flow Rate Fraction of Inspired Oxygen 04/15/24 19:18 04/15/24 19:20 04/15/24 19:25 Temperature 99.6 F Pulse Rate 92 101 H 100 Respiratory Rate 36 H 31 H 37 H Blood Pressure 87/58 L 83/46 L 89/51 L Pulse Oximetry 93 95 97 Oxygen Delivery Oxygen Flow Rate Fraction of Inspired Oxygen 04/15/24 19:38 04/15/24 19:42 04/15/24 19:45 Temperature Pulse Rate 102 H 104 H 100 Respiratory Rate 33 H 38 H 38 H Blood Pressure 83/53 L 86/47 L 85/48 L Pulse Oximetry Oxygen Delivery Oxygen Flow Rate Fraction of Inspired Oxygen 04/15/24 19:47 04/15/24 19:50 04/15/24 20:00 Temperature Pulse Rate 100 100 100 Respiratory Rate 31 H 36 H 40 H Blood Pressure 84/49 L 82/47 L Pulse Oximetry 94 98 Oxygen Delivery Oxygen Flow Rate Fraction of Inspired Oxygen 04/15/24 20:05 04/15/24 20:13 04/15/24 20:15 Temperature 99.5 F Pulse Rate 102 H 102 H 103 H Respiratory Rate 36 H 43 H 40 H Blood Pressure 92/44 L 89/48 L 96/46 L Pulse Oximetry 97 100 100 Oxygen Delivery Oxygen Flow Rate Fraction of Inspired Oxygen 04/15/24 20:16 04/15/24 20:30 04/15/24 20:34 Temperature 101.6 F H Pulse Rate 102 H 105 H 106 H Respiratory Rate 34 H 38 H 38 H Blood Pressure 95/45 L 95/45 L Pulse Oximetry 100 100 100 Oxygen Delivery Oxygen Flow Rate Fraction of Inspired Oxygen 04/15/24 20:37 04/15/24 20:45 04/15/24 20:50 Temperature 101.9 F H Pulse Rate 107 H 110 H 107 H Respiratory Rate 25 H 45 H 28 H Blood Pressure 96/50 L 90/49 L 90/49 L Pulse Oximetry 100 100 98 Oxygen Delivery Oxygen Flow Rate Fraction of Inspired Oxygen 04/15/24 20:50 04/15/24 21:00 04/15/24 21:05 Temperature 101.9 F H Pulse Rate 108 H 111 H 101 H Respiratory Rate 43 H 45 H 30 H Blood Pressure 99/45 L 99/45 L Pulse Oximetry 97 95 Oxygen Delivery Oxygen Flow Rate Fraction of Inspired Oxygen 04/15/24 21:09 04/15/24 21:09 04/15/24 21:14 Temperature 100.5 F H Pulse Rate 106 H 108 H 108 H Respiratory Rate 25 H 25 H 47 H Blood Pressure 90/41 L 90/41 L 90/55 L Pulse Oximetry 95 96 95 Oxygen Delivery Oxygen Flow Rate Fraction of Inspired Oxygen 04/15/24 21:16 04/15/24 21:30 04/15/24 21:45 Temperature Pulse Rate 108 H 111 H 142 H Respiratory Rate 35 H 37 H 41 H Blood Pressure 91/50 L 92/49 L 83/52 L Pulse Oximetry 95 94 Oxygen Delivery Oxygen Flow Rate Fraction of Inspired Oxygen 04/15/24 21:52 04/15/24 22:00 04/15/24 22:09 Temperature 100.2 F H Pulse Rate 141 H 154 H 140 H Respiratory Rate 40 H 27 H 30 H Blood Pressure 77/48 L 92/60 L 99/52 L Pulse Oximetry 100 Oxygen Delivery Oxygen Flow Rate Fraction of Inspired Oxygen 04/15/24 22:10 04/15/24 22:15 04/15/24 22:15 Temperature Pulse Rate 146 H 136 H 126 H Respiratory Rate 43 H 29 H Blood Pressure 99/52 L 81/52 L 110/71 Pulse Oximetry 98 Oxygen Delivery Oxygen Flow Rate Fraction of Inspired Oxygen 04/15/24 22:21 04/15/24 22:24 04/15/24 22:26 Temperature 100.4 F H Pulse Rate 140 H 140 H 138 H Respiratory Rate 30 H Blood Pressure 110/71 110/71 94/59 L Pulse Oximetry 97 Oxygen Delivery Oxygen Flow Rate Fraction of Inspired Oxygen 04/15/24 22:28 04/15/24 22:35 04/15/24 22:37 Temperature Pulse Rate 118 H 122 H 128 H Respiratory Rate 37 H 26 H Blood Pressure 73/52 L 95/85 L 94/58 L Pulse Oximetry Oxygen Delivery Oxygen Flow Rate Fraction of Inspired Oxygen 04/15/24 22:40 04/15/24 22:45 04/15/24 23:20 Temperature 100.1 F H 100.0 F H Pulse Rate 142 H 125 H 118 H Respiratory Rate 41 H 38 H 28 H Blood Pressure 84/53 L 90/48 L 87/48 L Pulse Oximetry 95 96 Oxygen Delivery Oxygen Flow Rate Fraction of Inspired Oxygen 04/16/24 00:00 04/16/24 00:00 04/16/24 00:01 Temperature Pulse Rate 125 H 113 H 125 H Respiratory Rate Blood Pressure 80/51 L 80/51 L Pulse Oximetry Oxygen Delivery Oxygen Flow Rate Fraction of Inspired Oxygen 04/16/24 00:20 04/16/24 00:20 04/16/24 00:42 Temperature 100.6 F H 99.6 F Pulse Rate 114 H 130 H 112 H Respiratory Rate 35 H 37 H Blood Pressure 77/65 L 77/53 L 91/55 L Pulse Oximetry 98 99 Oxygen Delivery Oxygen Flow Rate Fraction of Inspired Oxygen 04/16/24 01:00 04/16/24 01:00 04/16/24 01:25 Temperature Pulse Rate 112 H 99 Respiratory Rate Blood Pressure 99/57 L 84/47 L Pulse Oximetry 97 Oxygen Delivery High Flow Nasal Cannula Oxygen Flow Rate 3 Fraction of Inspired Oxygen 04/16/24 01:40 04/16/24 01:42 04/16/24 02:00 Temperature 99.5 F Pulse Rate 93 93 106 H Respiratory Rate 23 H Blood Pressure 85/51 L 85/59 L Pulse Oximetry 98 Oxygen Delivery Oxygen Flow Rate Fraction of Inspired Oxygen 04/16/24 02:00 04/16/24 02:00 04/16/24 02:00 Temperature Pulse Rate 106 H 93 93 Respiratory Rate 25 H Blood Pressure 88/63 L 88/63 L 88/63 L Pulse Oximetry 100 Oxygen Delivery Oxygen Flow Rate Fraction of Inspired Oxygen 04/16/24 02:15 04/16/24 02:42 04/16/24 03:30 Temperature 98.5 F 98.7 F Pulse Rate 106 H 101 H 91 Respiratory Rate 32 H 28 H Blood Pressure 103/93 H 100/60 100/97 H Pulse Oximetry 99 94 Oxygen Delivery Oxygen Flow Rate Fraction of Inspired Oxygen 04/16/24 04:00 04/16/24 04:00 04/16/24 04:00 Temperature 98.5 F Pulse Rate 66 66 71 Respiratory Rate 17 17 Blood Pressure 101/59 L Pulse Oximetry 97 97 Oxygen Delivery Nasal Cannula Oxygen Flow Rate 3 Fraction of Inspired Oxygen 04/16/24 04:00 04/16/24 04:12 04/16/24 04:13 Temperature Pulse Rate 71 70 83 Respiratory Rate Blood Pressure 101/59 L 101/59 L 101/59 L Pulse Oximetry Oxygen Delivery Oxygen Flow Rate Fraction of Inspired Oxygen 04/16/24 06:00 04/16/24 06:00 04/16/24 06:00 Temperature Pulse Rate 69 69 69 Respiratory Rate 12 Blood Pressure 90/74 L 90/74 L Pulse Oximetry 100 Oxygen Delivery Oxygen Flow Rate Fraction of Inspired Oxygen 04/16/24 06:03 04/16/24 06:20 04/16/24 07:00 Temperature Pulse Rate 68 68 68 Respiratory Rate Blood Pressure 97/63 L 97/63 L Pulse Oximetry Oxygen Delivery Oxygen Flow Rate Fraction of Inspired Oxygen 04/16/24 07:55 04/16/24 08:00 04/16/24 08:00 Temperature 97.4 F L Pulse Rate 69 68 68 Respiratory Rate 34 H 34 H Blood Pressure 115/85 118/65 Pulse Oximetry 99 99 Oxygen Delivery Nasal Cannula Oxygen Flow Rate 3 Fraction of Inspired Oxygen 04/16/24 08:00 04/16/24 08:22 04/16/24 09:12 Temperature Pulse Rate 68 68 68 Respiratory Rate Blood Pressure 114/85 110/69 Pulse Oximetry Oxygen Delivery Oxygen Flow Rate Fraction of Inspired Oxygen 04/16/24 09:27 04/16/24 10:19 04/16/24 11:12 Temperature Pulse Rate 68 71 Respiratory Rate Blood Pressure 107/72 117/73 Pulse Oximetry 100 Oxygen Delivery Nasal Cannula Oxygen Flow Rate 3 Fraction of Inspired Oxygen 32 Intake/Output Intake/Output: Intake & Output 04/13/24 04/14/24 04/15/24 04/16/24 23:59 23:59 23:59 23:59 Intake Total 2500 955.1 Output Total 1148 Balance 2500 -192.9 Meds/Results Medications: Active Medications Generic Name Dose Route Start Last Admin Trade Name Freq PRN Reason Stop Dose Admin Acyclovir 400 mg 04/16/24 09:00 04/16/24 08:34 Acyclovir 400 Mg Tablet PO 400 mg BID KAVON Administration Filgrastim-Sndz 300 mcg 04/16/24 12:00 Filgrastim-Sndz 300 Mcg/0.5 Ml Syringe SUB-Q 04/16/24 12:01 ONCE ONE Norepinephrine Bitartrate 8 mg in 250 mls @ 9.375 mls/hr 04/15/24 20:50 04/16/24 07:41 Levophed 8 Mg/D5w 250 Ml IV CONT Not Given .Q24H KAVON Protocol 5 MCG/MIN Vancomycin HCl 1,500 mg in 500 mls @ 250 mls/hr 04/16/24 14:00 Vancomycin 1,500 Mg/Ns 500 Ml IVPB Q12H KAVON Sodium Bicarbonate 150 meq/ 1,100 mls @ 50 mls/hr 04/16/24 08:00 04/16/24 08:20 Dextrose IV CONT 04/17/24 03:59 50 mls/hr .Q22H KAVON Administration Cefepime HCl 2 gm in 50 mls @ 100 mls/hr 04/16/24 08:00 04/16/24 09:12 Maxipime 2 Gm/Ns 50 Ml IVPB Infused Q8H KAVON Infusion Phenylephrine HCl 50 mg/ 250 ml in 250 mls @ 27 mls/hr 04/16/24 07:50 04/16/24 11:12 Dextrose IV CONT 90 mcg/min .Q9H16M KAVON 27 mls/hr Titration Protocol 90 MCG/MIN Doxycycline Hyclate 100 mg in 100 mls @ 100 mls/hr 04/16/24 11:30 Vibramycin 100 Mg/Ns 100 Ml IVPB Q12HR KAVON Levothyroxine Sodium 75 mcg 04/17/24 06:30 Levothyroxine Sodium 75 Mcg Tablet PO DAILY@0630 [facility] Pantoprazole Sodium 40 mg 04/16/24 21:00 Pantoprazole Sodium Iv 40 Mg Vial IV PUSH Q12H [facility] Radiology Results: ITS Impressions Chest X-Ray 04/15/24 19:27 IMPRESSION: Pulmonary opacities may represent mild interstitial edema. Likely small bilateral pleural effusions Labs Labs: Laboratory Results - last 24 hr 04/15/24 04/15/24 04/15/24 19:15 19:17 19:30 WBC 0.8 L* RBC 2.04 L Hgb 5.8 L* Hct 17.0 L* MCV 83.3 MCH 28.4 MCHC 34.1 RDW 18.0 H Plt Count 38 L D MPV 10.2 Immature Gran % (Auto) Not Reportable Neut % (Auto) Not Reportable Lymph % (Auto) Not Reportable [place] % (Auto) Not Reportable Eos % (Auto) Not Reportable Baso % (Auto) Not Reportable Lymph # (Auto) Not Reportable [place] # (Auto) Not Reportable Eos # (Auto) Not Reportable Baso # (Auto) Not Reportable Abs Immat Gran (auto) Not Reportable Absolute Neuts (auto) Not Reportable Absolute Nucleated RBC Not Reportable Total Counted 25 Neutrophils % (Manual) 48 Band Neutrophils % 4 Lymphocytes % (Manual) 44.0 Monocytes % (Manual) 4 Nucleated RBC % Not Reportable Abs Neuts (Manual) 0.41 L Abs Lymphs (Manual) 0.35 L Abs Monocytes (Manual) 0.03 L Smudge Cells Present Platelet Estimate Decreased % Immature Plt Fraction 5.4 Hypochromasia 2+ Anisocytosis 1+ Microcytosis 1+ Ovalocytes 1+ Schistocytes None seen Puncture Site Right radial ABG pH 7.533 H* ABG pCO2 19.6 L* ABG pO2 73.6 L ABG PO2/FiO2 Ratio 2.63 ABG HCO3 16.1 L ABG O2 Saturation 96.6 ABG O2 Content 7.9 L ABG Base Excess -6.0 A-a Gradient 102.9 Oxyhemoglobin 93.1 Total Hemoglobin 5.9 L* O2 Delivery Device Nasal cannula O2 Liters/Min 2.0 FiO2 28 Sodium 123 L Potassium 4.4 Chloride 97 L Carbon Dioxide 19 L Anion Gap 7 BUN 35 H D Creatinine 1.20 Estim Creat Clear Calc Not Reportable Estimated GFR > 60 Glucose 121 H Lactic Acid 3.2 H Calcium 8.1 L Total Bilirubin 1.0 AST 20 ALT 15 Alkaline Phosphatase 77 C-Reactive Protein 17.8 H Total Protein 7.0 Albumin 2.9 L Procalcitonin 4.6 Urine Color Urine Appearance Urine pH Ur Specific [place] Urine Protein Urine Glucose (UA) Urine Ketones Ur Blood (Man) Urine Nitrate Urine Bilirubin Urine Urobilinogen Add Ur Microanalysis Leukocyte Esterase Rfl Urine RBC Urine WBC Ur Squamous Epith Cells Urine Bacteria Urine Casts Nasal MRSA (PCR) Influenza A (RT-PCR) Negative Influenza B (RT-PCR) Negative RSV (RT-PCR) SARS-CoV-2 RNA (RT-PCR) Negative Blood Type A Positive Antibody Screen Negative Crossmatch See Detail 04/15/24 04/16/24 04/16/24 19:46 00:53 01:21 WBC RBC Hgb Hct MCV MCH MCHC RDW Plt Count MPV Immature Gran % (Auto) Neut % (Auto) Lymph % (Auto) [place] % (Auto) Eos % (Auto) Baso % (Auto) Lymph # (Auto) [place] # (Auto) Eos # (Auto) Baso # (Auto) Abs Immat Gran (auto) Absolute Neuts (auto) Absolute Nucleated RBC Total Counted Neutrophils % (Manual) Band Neutrophils % Lymphocytes % (Manual) Monocytes % (Manual) Nucleated RBC % Abs Neuts (Manual) Abs Lymphs (Manual) Abs Monocytes (Manual) Smudge Cells Platelet Estimate % Immature Plt Fraction Hypochromasia Anisocytosis Microcytosis Ovalocytes Schistocytes Puncture Site ABG pH ABG pCO2 ABG pO2 ABG PO2/FiO2 Ratio ABG HCO3 ABG O2 Saturation ABG O2 Content ABG Base Excess A-a Gradient Oxyhemoglobin Total Hemoglobin O2 Delivery Device O2 Liters/Min FiO2 Sodium Potassium Chloride Carbon Dioxide Anion Gap BUN Creatinine Estim Creat Clear Calc Estimated GFR Glucose Lactic Acid Calcium Total Bilirubin AST ALT Alkaline Phosphatase C-Reactive Protein Total Protein Albumin Procalcitonin Urine Color Yellow Urine Appearance Clear Urine pH 5.5 Ur Specific [place] 1.012 Urine Protein Trace Urine Glucose (UA) 3+ H Urine Ketones Negative Ur Blood (Man) Negative Urine Nitrate Negative Urine Bilirubin Negative Urine Urobilinogen 0.2 Add Ur Microanalysis Reviewed Leukocyte Esterase Rfl Negative Urine RBC 0-2 Urine WBC 0-5 Ur Squamous Epith Cells None seen Urine Bacteria None seen Urine Casts 0-2 Nasal MRSA (PCR) Not detected Influenza A (RT-PCR) Negative Influenza B (RT-PCR) Negative RSV (RT-PCR) Negative SARS-CoV-2 RNA (RT-PCR) Negative Blood Type Antibody Screen Crossmatch 04/16/24 06:22 WBC 1.1 L* RBC 2.57 L Hgb 7.5 L Hct 21.8 L MCV 84.8 MCH 29.2 MCHC 34.4 RDW 17.2 H Plt Count 41 L MPV 9.7 Immature Gran % (Auto) 10.3 H Neut % (Auto) 48.6 Lymph % (Auto) 29.9 [place] % (Auto) 8.4 Eos % (Auto) 0.0 Baso % (Auto) 2.8 H Lymph # (Auto) 0.32 L [place] # (Auto) 0.1 Eos # (Auto) 0.0 Baso # (Auto) 0.0 Abs Immat Gran (auto) 0.11 H Absolute Neuts (auto) 0.5 L Absolute Nucleated RBC 0.000 Total Counted Neutrophils % (Manual) Band Neutrophils % Lymphocytes % (Manual) Monocytes % (Manual) Nucleated RBC % 0.0 Abs Neuts (Manual) Abs Lymphs (Manual) Abs Monocytes (Manual) Smudge Cells Platelet Estimate % Immature Plt Fraction 5.4 Hypochromasia Anisocytosis Microcytosis Ovalocytes Schistocytes Puncture Site ABG pH ABG pCO2 ABG pO2 ABG PO2/FiO2 Ratio ABG HCO3 ABG O2 Saturation ABG O2 Content ABG Base Excess A-a Gradient Oxyhemoglobin Total Hemoglobin O2 Delivery Device O2 Liters/Min FiO2 Sodium 127 L Potassium 4.3 Chloride 102 Carbon Dioxide 17 L Anion Gap 8 BUN 30 H Creatinine 0.90 Estim Creat Clear Calc 86 Estimated GFR > 60 Glucose 132 H Lactic Acid 2.6 H Calcium 8.0 L Total Bilirubin AST ALT Alkaline Phosphatase C-Reactive Protein Total Protein Albumin Procalcitonin Urine Color Urine Appearance Urine pH Ur Specific [place] Urine Protein Urine Glucose (UA) Urine Ketones Ur Blood (Man) Urine Nitrate Urine Bilirubin Urine Urobilinogen Add Ur Microanalysis Leukocyte Esterase Rfl Urine RBC Urine WBC Ur Squamous Epith Cells Urine Bacteria Urine Casts Nasal MRSA (PCR) Influenza A (RT-PCR) Influenza B (RT-PCR) RSV (RT-PCR) SARS-CoV-2 RNA (RT-PCR) Blood Type Antibody Screen Crossmatch Quality VTE Prophylaxis VTE prophylaxis: mechanical ordered
[2024-04-16] MEDS: DOXYCYCLINE 100 MG/NS 100 ML 100 MG/100 ML BAG IVPB ×2 (12:27→21:13)
[2024-04-16] MEDS: FILGRASTIM-SNDZ 300 MCG/0.5 ML SYRINGE SUB-Q (12:30)
[2024-04-16] MEDS: VANCOMYCIN 1,500 MG/NS 500 ML 1,500 MG/500 ML BAG 250 MG IVPB (13:53)
[2024-04-16] MEDS: PHENYLEPHRINE HCL INJ 50 MG in DEXTROSE 5% IN WATER 250 ML/245 ML BAG 12 ML IV CONT (13:53)
[2024-04-16] MEDS: IPRATROPIUM 0.5 MG/ALBUTEROL SULFATE 2.5 MG AMPUL.NEB 3 ML INHALATION (15:04)
[2024-04-16] MEDS: dilTIAZem HCl INJ 25 MG/5 ML VIAL 10 MG IV PUSH (19:20)
[2024-04-16] MEDS: dilTIAZem 100 MG/100 ML 100 MG/100 ML BAG IV CONT (19:37)
[2024-04-16] MEDS: AMIODARONE 150 MG/D5W 100 ML 150 MG/100 ML BAG 600 MG IV CONT (21:12)
[2024-04-16] MEDS: AMIODARONE 360 MG/D5W 200 ML 360 MG/200 ML BAG 33.33 MG IV CONT (21:12)
[2024-04-16] MEDS: METOPROLOL TARTRATE INJ 5 MG/5 ML VIAL IV PUSH (22:08)
[2024-04-16 22:39] LABS: Alveolar/Arterial O2 Gradient 216.7 mmHg; Base Excess ABG -4.8 mEq/l (+/-2.0); Fractional Inspired Oxygen 60 %; HCO3 ABG 17.1 mEq/l (22.0-26.0); Oxygen Content ABG 12.6 %vol (16.0-22.0); Oxygen Saturation ABG 99.4 % (95.0-100.0); Oxyhemoglobin 99.1 % THb (90.0-100.0); PO2 ABG 187.2 mmHg (80.0-100.0); PO2 FiO2 Ratio Arterial Blood 3.12 %; Total Hemoglobin 8.7 g/dL (12.0-18.0)
[2024-04-16 22:42] LABS: pH ABG 7.514 (7.350-7.450)
[2024-04-16 22:43] LABS: Device NON-INVASIVE VENT; Modified Allen's Test Pass; PCO2 ABG 21.7 mmHg (35.0-45.0); Site Drawn RIGHT RADIAL
[2024-04-16 22:46] LABS: Non-Invasive Expiratory Pressure 7 CMH2O; Non-Invasive Inspiratory Pressure 12 CMH2O; Non-Invasive Vent Rate 12 /MIN
[2024-04-17] VITALS (72 sets, daily range): BP systolic 69–133; BP diastolic 47–78; PULSE 71–151; RESP 20–43; TEMP 36.8–38.5; O2SAT 98–100; BMI 32.2
--- NOTE | 2024-04-17 | ECHO_ITS ---
Patient Info Name: Taiwo Palacios Age: 63 years : 1960 Gender: Male Ht: 69 in Wt: 218 lbs BSA: 2.23 m2 HR: 88 bpm BP: 114 / 60 mmHg Technical Quality: Poor Exam Date: 04/17/2024 2:13 PM Exam Location: Echo Lab Patient Status: Inpatient Admit Date: 04/15/2024 Staff Ordering Physician: Horacio Gandhi MD [employer] Supervisor: Michelle Trotter RDCS Attending Provider: Homa Gaviria MD Referring Physician: Hiram ORDONEZ; Exam Type: CA echo dop color flow w con Study Info Indications - CARDIOMYOPATHY - SEPTIC SHOCK Complete two-dimensional, color flow and Doppler transthoracic echocardiogram is performed with contrast to opacify the left ventricle and to improve the deliniation of the left ventricle endocardial borders. Contrast/Agitated Saline Contrast/Ag. Saline: Definity Amount: 2.00 ml Existing IV Access: Yes Reason for Poor Study: poor echocardiographic windows Summary 1. Left ventricular systolic function is normal, estimated at 30-35%. 2. Left ventricular chamber dimension is mildly enlarged. 3. Left atrial chamber dimension is mildly enlarged. 4. There is mild mitral valve regurgitation. 5. There is trivial pericardial effusion. 6. Pleural effusion. 7. Technically difficult study. Left Ventricle Left ventricular chamber dimension is mildly enlarged. Left ventricular systolic function is normal, estimated at 30-35%. There is no increased left ventricular wall thickness. The left ventricular diastolic function is abnormal. Right Ventricle Right ventricular chamber dimension is normal. Right ventricular systolic function is normal. Left Atria Left atrial chamber dimension is mildly enlarged. Right Atria Right atrial chamber dimension is normal. Atrial Septum Intact interatrial septum visualized by color flow imaging. Aortic Valve The aortic valve is trileaflet. There is mild aortic valve sclerosis. There is no aortic valve stenosis. There is no aortic valve regurgitation. Pulmonic Valve The pulmonic valve is not well visualized. There is no pulmonic valve stenosis. There is no pulmonic regurgitation. Mitral Valve The mitral valve has normal leaflets. There is no mitral valve stenosis. There is mild mitral valve regurgitation. Tricuspid Valve The tricuspid valve leaflets are normal. There is no significant tricuspid valve stenosis. There is no tricuspid valve regurgitation. Pericardium/Pleural The pericardium appears normal. There is trivial pericardial effusion. Inferior Vena Cava Dilated inferior vena cava with <50% collapse upon inspiration consistent with Empty right atrial pressure, 15 mmHg. Aorta The aortic root size at the sinus of Valsalva is normal. The prox ascending aorta size is normal. Left Ventricular Outflow Tract Name Value Normal LVOT 2D LVOT Diameter 2.21 cm LVOT Doppler LVOT Peak Gradient 6 mmHg LVOT Mean Gradient 4 mmHg LVOT VTI 20.86 cm LVOT VTI/AV VTI Ratio 0.70 LVOT Stroke Volume 80.25 ml LVOT CO 6.83 l/min LVOT CI 3.07 L/min/m2 Pulmonic Valve Name Value Normal RVOT Doppler RVOT Peak Gradient 2 mmHg PV Doppler PV Peak Gradient 4 mmHg Mitral Valve Name Value Normal MV Doppler MV Peak Gradient 5 mmHg MV Mean Gradient 2 mmHg MV [place] 624.19 cm/s2 MV PHT 0 s MV Area (PHT) 5.37 cm2 4.00-5.00 MV Area (Cont Eq VTI) 2.82 cm2 MV Diastolic Function MV E Peak Velocity 88.12 cm/s MV A Peak Velocity 0.82 cm/s MV E/A 107.81 MV Decel Time 0 s MV Annular TDI MV E/e' (Septal) 7.52 <=8.00 MV E/e' (Lateral) 8.23 <=8.00 MV E/e' (Average) 7.87 Tricuspid Valve Name Value Normal Estimated PAP/RSVP RA Pressure 15 mmHg <=5 Aorta Name Value Normal Ascending Aorta Ao Root Diameter (MM) 3.25 cm Ao Root Diam Index (MM) 1.46 cm/m2 Aortic Valve Name Value Normal AV Doppler AV Peak Velocity 166.02 cm/s AV Peak Gradient 7 mmHg AV Mean Gradient 5 mmHg AV VTI 29.59 cm AV Area (Cont Eq VTI) 2.71 cm2 >=3.00 AV Area (Cont Eq Angel) 3.49 cm2 AV Regurgitation 2D LVOT Area 3.85 cm2 Ventricles Name Value Normal LV Dimensions 2D/MM IVS Diastolic Thickness (2D) 1.00 cm 0.60-1.00 LVID Diastole (2D) 5.28 cm 4.20-5.80 LVIW Diastolic Thickness (2D) 1.40 cm 0.60-1.00 LVID Systole (2D) 4.49 cm 2.50-4.00 LVOT Diameter 2.21 cm LV Mass (2D Cubed) 254.85 g 88.00-224.00 LV Mass Index (2D Cubed) 0.01 g/cm2 0.00-0.01 Relative Wall Thickness (2D) 0.53 LV Fractional Shortening/Ejection Fraction 2D/MM LV Fractional Shortening (2D) 18 % 25-43 LV EF (2D Teicholz) 37 % 52-72 LV Diastolic Volume (4C MOD) 149.05 ml LV EF (4C MOD) 23 % LV Diastolic Volume (2C MOD) 118.49 ml LV EF (2C MOD) 34 % LV Diastolic Volume (BP MOD) 137.62 ml 62.00-150.00 LV Diastolic Volume Index (BP MOD) 0.06 l/m2 0.03-0.07 LV Systolic Volume (BP MOD) 99.42 ml 21.00-61.00 LV Systolic Volume Index (BP MOD) 0.04 l/m2 0.01-0.03 LV EF (BP MOD) 28 % 52-72 LV Diastolic Length (4C) 9.00 cm LV Systolic Length (4C) 8.10 cm LV Stroke Volume (4C MOD) 34.21 ml Atria Name Value Normal LA Dimensions LA Dimension (MM) 3.90 cm 3.00-4.10 LA Volume (4C A-L) 70.36 ml LA Volume (BP A-L) 80.98 ml RA Dimensions RA Area (4C) 23.12 cm2 <=18.00 Report Signatures
[2024-04-17] MEDS: CEFEPIME 2 GM/NS 50 ML 2 GM/50 ML BAG IVPB ×3 (01:12→17:07)
[2024-04-17] MEDS: VANCOMYCIN 1,500 MG/NS 500 ML 1,500 MG/500 ML BAG 250 MG IVPB ×2 (02:27→17:08)
[2024-04-17] MEDS: IPRATROPIUM 0.5 MG/ALBUTEROL SULFATE 2.5 MG AMPUL.NEB 3 ML INHALATION ×4 (02:49→20:42)
[2024-04-17] MEDS: AMIODARONE 360 MG/D5W 200 ML 360 MG/200 ML BAG 16.67 MG IV CONT (03:14)
[2024-04-17 05:28] LABS: Basophils Percent Auto 2.6 % (0.2-1.2); Hematocrit 22.1 % (42.0-52.0); Hemoglobin 7.4 g/dL (14.0-18.0); Immature Platelet Fraction Pct 5.6 % (0.9-11.2); Lymphocytes Absolute Auto 0.37 K/mm3 (0.9-3.2); Lymphocytes Percent Auto 32.5 % (18.3-44.2); Mean Corpuscular HGB Conc 33.5 g/dl (32-36); Mean Corpuscular Hemoglobin 28.5 pg (26-34); Mean Platelet Volume 10.3 fl (7.4-10.4); Monocytes Absolute Auto 0.1 K/mm3 (0.1-0.6); Monocytes Percent Auto 6.1 % (2.6-8.5); Neutrophils Absolute Auto 0.7 K/mm3 (1.3-6.7); Neutrophils Percent Auto 58.8 % (45.5-73.1); Platelet Count Result 35 k/mm3 (150-375); Red Cell Distribution Width 17.4 % (11.5-14.5)
[2024-04-17 05:35] LABS: INR 1.4; Prothrombin Time 17.7 Seconds (11.1-14.7)
[2024-04-17 05:36] LABS: Partial Thromboplastin Time 31.9 Seconds (22.3-36.8)
[2024-04-17 05:45] LABS: Lactic Acid Reflex 2.5 mmol/L (0.7-2.0)
[2024-04-17 05:47] LABS: Alanine Aminotransferase 17 U/L (6-50); Albumin Level 2.7 g/dL (3.5-5.1); Alkaline Phosphatase 74 U/L (38-126); Anion Gap 9 mmol/L (4-12); Aspartate Amino Transferase 22 U/L (17-59); Bilirubin,Total 1.1 mg/dL (0.2-1.3); Blood Urea Nitrogen 21 mg/dL (9-20); Calcium 8.2 mg/dL (8.4-10.2); Carbon Dioxide 17 mmol/L (22-30); Chloride 104 mmol/L (98-107); Estimated CRCL calculation 108 ml/min; Estimated Glomerular Filt Rate > 60; Glucose 116 mg/dL (65-110); Lipase 15 U/L (23-300); Phosphorus 2.7 mg/dL (2.5-4.5); Potassium 4.1 mmol/L (3.4-5.0); Sodium 130 mmol/L (137-145)
[2024-04-17 05:54] LABS: CRP 18.1 mg/dL (<1.0); White Blood Count 1.1 K/mm3 (4.5-10.0)
[2024-04-17 05:55] LABS: Platelet Estimate Decreased (Adequate)
[2024-04-17 05:56] LABS: Anisocytosis 1+; Burr Cells 1+; Hypochromasia 1+; Poikilocytosis 1+
[2024-04-17 05:57] LABS: Helmet Cells 1+; Schistocytes None Seen
[2024-04-17] MEDS: LEVOTHYROXINE SODIUM 75 MCG TABLET PO (06:53)
--- NOTE | 2024-04-17 07:07 | PC.NURSE ---
1900 pt flipped into afib rvr and marked tachypnea. Provider order dilt push and gtt. See orders 2104 Dilt ineffective, see amio orders placed by refrigerator repair technician. placed on bipap 2199 Order for metoprolol and abg due to worsening tachypnea. 2237 ABG resulted, Pt converted to NSR. discussed case with refrigerator repair technician and Samantha AMADO who was on the floor and assessed Pt 0315 Titrated Amio per protocol 0419 Afib rvr, Provider notified and titrated amio up to 1 540 converted nsr
[2024-04-17 08:20] LABS: Reflex Lactic Acid Yes or No Add Lactic
[2024-04-17] MEDS: SODIUM BICARBONATE 8.4% 50 MEQ/50 ML SYRINGE 100 MEQ IV PUSH (08:25)
[2024-04-17] MEDS: PANTOPRAZOLE SODIUM IV 40 MG VIAL IV PUSH ×2 (08:33→21:43)
[2024-04-17] MEDS: DOXYCYCLINE 100 MG/NS 100 ML 100 MG/100 ML BAG IVPB ×2 (08:34→21:39)
[2024-04-17] MEDS: ETOMIDATE 20 MG/10 ML AMPUL IV PUSH (09:21)
[2024-04-17] MEDS: ROCURONIUM BROMIDE 50 MG/5 ML VIAL IV PUSH ×2 (09:23→09:26)
[2024-04-17] MEDS: MIDAZOLAM HCL (*CRX) 2 MG/2 ML VIAL IV PUSH (09:25)
[2024-04-17] MEDS: PROPOFOL IV EMULSION 100 ML 2.97 MG IV CONT (09:30)
--- NOTE | 2024-04-17 09:38 | WPDPROCEDUR ---
Procedures Intubation Intubation Date: 04/17/24 Intubation Time: 09:38 Consent: Patient was breathing 40-50 times a minute, and significant respiratory distress patient is confused as when I asked him that he needs to be on a breathing machine he had refused. He had told the night nurse and also told me yesterday that he wanted to be a full code and do everything if necessary. I called his ,Abdiaziz, discussed with her regarding intubation, she consented and stated that he would also want to be intubated and placed on mechanical ventilation Sedative: etomidate Paralytic: rocuronium Laryngoscope: fiber optic video scope Assist device used: fiber optic device ET tube size: 8 Tube secured depth (cm): 24 Tube secured location: lips Tube placement confirmation: visualized tube passing through cords, equal breath sounds bilaterally, no breath sounds over epigastrium and confirmation by capnometry Patient tolerated procedure: well Intubation complications: none
[2024-04-17] MEDS: AMIODARONE 360 MG/D5W 200 ML 360 MG/200 ML BAG 33.33 MG IV CONT ×3 (09:57→21:36)
[2024-04-17] MEDS: METOPROLOL TARTRATE INJ 5 MG/5 ML VIAL IV PUSH (10:07)
[2024-04-17 11:04] LABS: Alveolar/Arterial O2 Gradient 458.2 mmHg; Base Excess ABG -2.8 mEq/l (+/-2.0); Carboxyhemoglobin 0.5 % THb (0-2.0); Fractional Inspired Oxygen 100 %; HCO3 ABG 20.2 mEq/l (22.0-26.0); Methemoglobin ABG 0.2 %THb (0-1.5); Oxygen Saturation ABG 99.6 % (95.0-100.0); Oxyhemoglobin 98.8 % THb (90.0-100.0); PCO2 ABG 27.9 mmHg (35.0-45.0); PO2 ABG 226.9 mmHg (80.0-100.0); PO2 FiO2 Ratio Arterial Blood 2.27 %; Reduced Hemoglobin 0.5 %THb (0-5.0); Total Hemoglobin 8.2 g/dL (12.0-18.0); pH ABG 7.477 (7.350-7.450)
[2024-04-17 11:05] LABS: Arterial Blood Gas Ventilator rate 24 /MIN; Device VENTILATOR; Modified Allen's Test Pass; Site Drawn LEFT RADIAL
[2024-04-17 11:06] LABS: Arterial Blood Gas PEEP 5 cmH2O; Arterial Blood Gas Pressure Support 0 cmH2O; Arterial Blood Gas Tidal Volume 450 ml; Arterial Blood Gas Vent Mode CMV
[2024-04-17] MEDS: ACYCLOVIR 400 MG TABLET PO ×2 (11:38→17:07)
[2024-04-17 11:50] LABS: Glucose Point of Care 117 mg/dl (65-105)
--- NOTE | 2024-04-17 12:22 | WPDINTPN ---
Progress Note: A&P Assessment and Plan (1) Septic shock: Code(s): A41.9 - Sepsis, unspecified organism; R65.21 - Severe sepsis with septic shock Status: Acute Assessment and Plan: Septic shock likely related to pneumonia, also could be related to bacteremia given patient has neutropenic fever -continue cefepime, vancomycin,( 04/15) - doxycycline for atypical coverage(04/16) -absolute neutrophil count remains low -urine output has been adequate, creatinine is stable and improved -lactic acid trending down, continue to monitor -procalcitonin was 4.6 and C-reactive protein was 18.1 -04/15: Preliminary Blood cultures negative x2 -continue to wean Owen-Synephrine to maintain MAP > 65 mmHg for adequate end organ perfusion (2) Pneumonia: Code(s): J18.9 - Pneumonia, unspecified organism Status: Acute Assessment and Plan: Chest x-ray showed bilateral pulmonary diffuse reticular opacities R > L -treatment is above (3) Paroxysmal atrial fibrillation with rapid ventricular response: Code(s): I48.0 - Paroxysmal atrial fibrillation Status: Acute Assessment and Plan: Has a history of paroxysmal AFib, was in AFib RVR in the ER, given septic shock patient was started on amiodarone bolus and infusion - 04/17: Patient was also in AFib RVR overnight and this morning, responded well to amiodarone and metoprolol -currently in sinus rhythm, rate controlled (4) Neutropenic fever: Code(s): D70.9 - Neutropenia, unspecified; R50.81 - Fever presenting with conditions classified elsewhere Status: Acute Assessment and Plan: Neutropenic fevers likely related to chemotherapy which was done about 3 weeks ago. Patient has not been feeling well for about a week, complained of generalized weakness low-grade fevers -continue treatment as above -s/p one dose of filgrastim -Heme-Onc been consulted and await recommendations -neutropenic precautions (5) Pancytopenia: Code(s): D61.818 - Other pancytopenia Status: Acute Assessment and Plan: History of pancytopenia likely related to myelodysplastic syndrome leukemia, chemotherapy -follows with Dr. Tomlin, was been consulted -continue to treat underlying cause for now -transfuse as needed (6) MDS (myelodysplastic syndrome): Code(s): D46.9 - Myelodysplastic syndrome, unspecified Status: Acute Assessment and Plan: Patient with myelodysplastic syndrome with pancytopenia -consulted heme Onc (7) Leukemia: Code(s): C95.90 - Leukemia, unspecified not having achieved remission Status: Acute Assessment and Plan: Status post chemotherapy, Heme-Onc to follow (8) Rheumatoid arthritis: Code(s): M06.9 - Rheumatoid arthritis, unspecified Status: Acute Assessment and Plan: Tylenol for pain (9) Heart failure with reduced ejection fraction: Code(s): I50.20 - Unspecified systolic (congestive) heart failure Status: Acute Assessment and Plan: HFrEF with EF of 30-35% -cardiomyopathy -On Jardiance, metoprolol, Entresto, spironolactone at home -hold all these medications due to patient in septic shock, hypotension on vasopressors 06/29/2023 echocardiogram Summary 1. Definity contrast administered improved wall motion interpretation. 2. Left ventricular chamber dimension is severely enlarged. 3. Left ventricular systolic function is severely globally reduced, estimated at 30-35%. 4. The left ventricular diastolic function is abnormal. 5. E/e' 13 is mildly elevated. 6. Left atrial chamber dimension is severely enlarged. 7. There is mild mitral valve regurgitation. 8. There is trace tricuspid valve regurgitation. 9. No pulmonary hypertension, estimated pulmonary arterial systolic pressure is 28 mmHg. Plan DVT prophylaxis: SCDs, no chemoprophylaxis due to thrombocytopenia, anemia Stress ulcer prophylaxis: Protonix IV q.12 hours Nutrition: Will start tube feeds Code Status: Full code Critical Care Time Spent: 44 minutes Discussed with patient's Abdiaziz on the phone and at bedside when she came in and updated her with patient's condition and plan of care. I answered all her questions. Due to a high probability of clinically significant, life threatening deterioration, the patient required my highest level of preparedness to intervene emergently and I personally spent this critical care time directly and personally managing the patient. This critical care time included obtaining a history; examining the patient; pulse oximetry; ordering and review of studies; arranging urgent treatment with development of a management plan; evaluation of patient's response to treatment; frequent reassessment; and discussions with other providers. It was exclusive of separately billable procedures and treating other patients and teaching time. Please see Assessment and Plan section and the rest of the note for further information on patient assessment and treatment This dictation may have been done utilizing a voice recognition system. Attempts have been made to correct errors. However, there may be uncorrected grammatical, spelling, and recognitions errors present. Subjective Date/time seen: 04/17/24 12:22 Interval history: Reason for consult: Patient admitted to the ICU on 04/16/2024 with Septic shock, hypotension, neutropenic fever, pneumonia, atrial fibrillation RVR 04/17/2024: Patient seen and examined the ICU this morning, patient has been on BiPAP, tachypneic with respiratory rates of 40s to 50s, patient has been in and out of AFib, was given Cardizem IV push and started on Cardizem infusion which did not resolve the atrial fibrillation, patient started on amiodarone and given a dose of metoprolol with improvement in his rate. Discussed with patient and his regarding intubation, consented to intubation. Patient was successfully intubated and placed on mechanical ventilation, sedated with propofol Review of Systems Review of Systems: All systems reviewed & are unremarkable except as noted in HPI and below Exam Narrative: General: Intubated and sedated HEENT:? Pupils equal and reactive, sclera is clear, ETT in place Neck:? Supple Respiratory:? Coarse breath sounds bilaterally right greater than left, adequate air entry, no wheezing Cardiac:? S1-S2 normal, regular rate and rhythm Abdomen:? Soft, nontender, protuberant, hypoactive bowel sounds Extremities:? Bilateral lower extremity pitting edema, palpable pedal pulses Neuro:? Patient intubated and sedated, not following commands or opening his eyes at this time. I to intubation patient was awake, alert, confused, moving all extremities Skin:? Bruising noted Psych:? Flat affect, normal mentation Objective Data Vital Signs Vital Signs: Vital Signs - 24 hr 04/16/24 12:45 04/16/24 13:00 04/16/24 13:40 Temperature Pulse Rate 74 74 76 Respiratory Rate Blood Pressure 115/69 109/71 111/59 L Pulse Oximetry Oxygen Delivery Fraction of Inspired Oxygen 04/16/24 13:53 04/16/24 13:53 04/16/24 13:56 Temperature Pulse Rate 77 77 76 Respiratory Rate Blood Pressure 113/71 113/71 113/71 Pulse Oximetry Oxygen Delivery Fraction of Inspired Oxygen 04/16/24 14:00 04/16/24 14:00 04/16/24 14:14 Temperature Pulse Rate 81 81 Respiratory Rate 16 Blood Pressure 113/70 Pulse Oximetry 96 Oxygen Delivery Room Air Fraction of Inspired Oxygen 04/16/24 14:22 04/16/24 14:48 04/16/24 15:04 Temperature Pulse Rate 79 92 Respiratory Rate Blood Pressure 101/70 107/96 H Pulse Oximetry 98 Oxygen Delivery Room Air Fraction of Inspired Oxygen 21 04/16/24 15:04 04/16/24 15:10 04/16/24 15:13 Temperature Pulse Rate 87 84 86 Respiratory Rate 28 H 36 H Blood Pressure 97/54 L Pulse Oximetry Oxygen Delivery Fraction of Inspired Oxygen 04/16/24 16:00 04/16/24 16:00 04/16/24 16:00 Temperature 97.7 F Pulse Rate 90 91 Respiratory Rate 25 H Blood Pressure 107/60 107/60 Pulse Oximetry 95 95 Oxygen Delivery Room Air Fraction of Inspired Oxygen 04/16/24 16:00 04/16/24 17:40 04/16/24 18:00 Temperature Pulse Rate 91 94 103 H Respiratory Rate Blood Pressure 103/62 Pulse Oximetry Oxygen Delivery Fraction of Inspired Oxygen 04/16/24 18:00 04/16/24 19:37 04/16/24 20:00 Temperature Pulse Rate 101 H 156 H 108 H Respiratory Rate 20 46 H Blood Pressure 116/58 L 103/47 L Pulse Oximetry 95 97 Oxygen Delivery BiPAP Fraction of Inspired Oxygen 04/16/24 20:00 04/16/24 20:00 04/16/24 20:07 Temperature 98.2 F Pulse Rate 137 H 137 H 145 H Respiratory Rate 42 H Blood Pressure 123/82 123/82 Pulse Oximetry 90 Oxygen Delivery Fraction of Inspired Oxygen 04/16/24 20:38 04/16/24 21:12 04/16/24 21:12 Temperature Pulse Rate 138 H 140 H 140 H Respiratory Rate Blood Pressure 127/76 108/62 108/62 Pulse Oximetry Oxygen Delivery Fraction of Inspired Oxygen 04/16/24 21:13 04/16/24 21:23 04/16/24 22:00 Temperature Pulse Rate 140 H 121 H 137 H Respiratory Rate 46 H Blood Pressure 108/62 Pulse Oximetry 97 Oxygen Delivery BiPAP Fraction of Inspired Oxygen 04/16/24 22:00 04/16/24 22:08 04/16/24 22:16 Temperature Pulse Rate 137 H 131 H 108 H Respiratory Rate 45 H Blood Pressure 120/94 H 98/72 L Pulse Oximetry 92 Oxygen Delivery Fraction of Inspired Oxygen 04/16/24 22:38 04/16/24 23:40 04/17/24 00:00 Temperature Pulse Rate 87 82 82 Respiratory Rate 51 H 33 H 33 H Blood Pressure Pulse Oximetry 100 100 100 Oxygen Delivery BiPAP BiPAP BiPAP Fraction of Inspired Oxygen 21 04/17/24 00:00 04/17/24 00:00 04/17/24 00:10 Temperature 98.5 F Pulse Rate 85 85 85 Respiratory Rate 40 H Blood Pressure 90/78 L 90/78 L Pulse Oximetry 98 Oxygen Delivery Fraction of Inspired Oxygen 04/17/24 02:00 04/17/24 02:00 04/17/24 02:00 Temperature Pulse Rate 83 85 85 Respiratory Rate 33 H Blood Pressure 98/51 L 104/50 L Pulse Oximetry 100 Oxygen Delivery Fraction of Inspired Oxygen 04/17/24 02:50 04/17/24 02:50 04/17/24 02:58 Temperature Pulse Rate 87 79 82 Respiratory Rate 30 H 30 H 32 H Blood Pressure Pulse Oximetry 100 Oxygen Delivery BiPAP Fraction of Inspired Oxygen 04/17/24 03:14 04/17/24 04:00 04/17/24 04:00 Temperature Pulse Rate 85 90 82 Respiratory Rate 32 H Blood Pressure 104/56 L Pulse Oximetry 100 Oxygen Delivery BiPAP Fraction of Inspired Oxygen 04/17/24 04:00 04/17/24 04:25 04/17/24 05:35 Temperature 99 F Pulse Rate 90 135 H 84 Respiratory Rate 31 H 34 H Blood Pressure 104/50 L 111/59 L Pulse Oximetry 100 99 Oxygen Delivery BiPAP Fraction of Inspired Oxygen 04/17/24 06:00 04/17/24 06:00 04/17/24 06:00 Temperature Pulse Rate 91 92 88 Respiratory Rate 36 H Blood Pressure 111/62 114/60 Pulse Oximetry 100 Oxygen Delivery Fraction of Inspired Oxygen 04/17/24 08:00 04/17/24 08:12 04/17/24 08:19 Temperature 98.2 F Pulse Rate 89 92 91 Respiratory Rate 34 H 43 H 39 H Blood Pressure 117/61 Pulse Oximetry 100 Oxygen Delivery Fraction of Inspired Oxygen 04/17/24 09:25 04/17/24 09:30 04/17/24 09:35 Temperature Pulse Rate 102 H 101 H Respiratory Rate 20 Blood Pressure Pulse Oximetry 99 Oxygen Delivery Mechanical Ventilation Fraction of Inspired Oxygen 100 100 04/17/24 09:50 04/17/24 09:57 04/17/24 10:00 Temperature Pulse Rate 109 H 109 H 131 H Respiratory Rate 21 H Blood Pressure 133/67 133/67 121/76 Pulse Oximetry 100 Oxygen Delivery Fraction of Inspired Oxygen 04/17/24 10:07 04/17/24 10:10 04/17/24 10:22 Temperature Pulse Rate 150 H 116 H 126 H Respiratory Rate 24 H 26 H Blood Pressure Pulse Oximetry Oxygen Delivery Fraction of Inspired Oxygen 04/17/24 10:45 04/17/24 11:00 04/17/24 11:15 Temperature Pulse Rate 88 84 Respiratory Rate 28 H 30 H Blood Pressure Pulse Oximetry Oxygen Delivery Fraction of Inspired Oxygen 60 04/17/24 11:16 04/17/24 11:24 Temperature Pulse Rate 85 81 Respiratory Rate 34 H Blood Pressure Pulse Oximetry 100 Oxygen Delivery Mechanical Ventilation Fraction of Inspired Oxygen 60 Intake/Output Intake/Output: Intake & Output 04/14/24 04/15/24 04/16/24 04/17/24 23:59 23:59 23:59 23:59 Intake Total 2500 3110.7 538.0 Output Total 2648 300 Balance 2500 462.7 238.0 Meds/Results Medications: Active Medications Generic Name Dose Route Start Last Admin Trade Name Freq PRN Reason Stop Dose Admin Acyclovir 400 mg 04/16/24 09:00 04/17/24 11:38 Acyclovir 400 Mg Tablet PO 400 mg BID KAVON Administration Albuterol/Ipratropium 3 ml 04/16/24 14:55 04/17/24 08:11 Ipratropium 0.5 Mg/Albuterol Sulfate 2.5 Mg Ampul.Neb 3 Ml INHALATION 3 ml Q6HRT KAVON Administration Dextrose 12.5 gm 04/17/24 12:00 Dextrose 50% 25 Gm/50 Ml Syringe IV PUSH PRN PRN Hypoglycemia Protocol Glucagon 1 mg 04/17/24 12:00 Glucagon For Inj 1 Mg Vial IM PRN PRN Hypoglycemia Protocol Glucose 15 gm 04/17/24 12:00 Glucose Oral Gel 15 Gm Of Glucse In 37.5 Gm Tube PO PRN PRN Hypoglycemia Protocol Norepinephrine Bitartrate 8 mg in 250 mls @ 9.375 mls/hr 04/15/24 20:50 04/16/24 07:41 Levophed 8 Mg/D5w 250 Ml IV CONT Not Given .Q24H KAVON Protocol 5 MCG/MIN Vancomycin HCl 1,500 mg in 500 mls @ 250 mls/hr 04/16/24 14:00 04/17/24 02:27 Vancomycin 1,500 Mg/Ns 500 Ml IVPB 250 mls/hr Q12H KAVON Administration Cefepime HCl 2 gm in 50 mls @ 100 mls/hr 04/16/24 08:00 04/17/24 09:00 Maxipime 2 Gm/Ns 50 Ml IVPB Infused Q8H KAVON Infusion Doxycycline Hyclate 100 mg in 100 mls @ 100 mls/hr 04/16/24 11:30 04/17/24 09:30 Vibramycin 100 Mg/Ns 100 Ml IVPB Infused Q12HR KAVON Infusion Amiodarone HCl/Dextrose 360 mg in 200 mls @ 33.333 mls/hr 04/17/24 02:57 04/17/24 09:57 Nexterone 360 Mg/D5w 200 Ml IV CONT 1 mg/min .Q6H KAVON 33.33 mls/hr Administration 1 MG/MIN Propofol 100 mls @ 23.784 mls/hr 04/17/24 09:15 04/17/24 11:16 Diprivan IV CONT 40 mcg/kg/min .Q4H13M KAVON 23.78 mls/hr Titration Protocol 40 MCG/KG/MIN Norepinephrine Bitartrate 8 mg in 250 mls @ 9.375 mls/hr 04/17/24 12:00 Levophed 8 Mg/D5w 250 Ml IV CONT .Q24H KAVON Protocol 5 MCG/MIN Dextrose 1,000 mls @ 100 mls/hr 04/17/24 12:00 Dextrose 5% 1,000 Ml IVPB PRN PRN Hypoglycemia Protocol Insulin Aspart 2 - 5 units 04/17/24 18:00 Insulin Aspart (*Bkc) 100 Units/Ml SUB-Q Q6HR KAVON Protocol Levothyroxine Sodium 75 mcg 04/17/24 06:30 04/17/24 06:53 Levothyroxine Sodium 75 Mcg Tablet PO 75 mcg DAILY@0630 KAVON Administration Metoprolol Tartrate 5 mg 04/17/24 10:27 Metoprolol Tartrate Inj 5 Mg/5 Ml Vial IV PUSH Q6H PRN Tachyarrhythmias Multi-Ingred Cream/Lotion/Oil/Oint 1 applic 04/17/24 09:00 04/17/24 09:59 Mineral Oil/White Petrolatum Ointment EACH EYE Not Given Q12HR KAVON Pantoprazole Sodium 40 mg 04/16/24 21:00 04/17/24 08:33 Pantoprazole Sodium Iv 40 Mg Vial IV PUSH 40 mg Q12H KAVON Administration Perflutren Lipid Microsphere 0 ml 04/17/24 07:32 Perflutren Lipid Microspheres 1.5 Ml Vial Diluted To 10 Ml Total Volume IV PUSH 04/20/24 07:33 ONCE PRN adequate visualization Protocol Sodium Chloride 10 ml 04/17/24 14:00 Central Line Flush IV PUSH Q8HR KAVON Sodium Chloride 10 ml 04/17/24 14:00 Central Line Flush IV PUSH Q8HR KAVON Sodium Chloride 10 ml 04/17/24 07:18 Central Line Flush IV PUSH PRN PRN before/after int. infusion Sodium Chloride 20 ml 04/17/24 07:18 Central Line Flush IV PUSH PRN PRN after blood draws Radiology Results: ITS Impressions Chest X-Ray 04/17/24 09:43 IMPRESSION: Cardiomegaly with cardiac decompensation and pulmonary edema. Pneumonitis is not excluded. Follow-up advised. Left basilar atelectasis versus pneumonia. Labs Labs: Laboratory Results - last 24 hr 04/16/24 04/17/24 04/17/24 22:28 05:14 10:59 WBC 1.1 L* RBC 2.60 L Hgb 7.4 L Hct 22.1 L MCV 85.0 MCH 28.5 MCHC 33.5 RDW 17.4 H Plt Count 35 L MPV 10.3 Immature Gran % (Auto) 0.0 Neut % (Auto) 58.8 Lymph % (Auto) 32.5 [place] % (Auto) 6.1 Eos % (Auto) 0.0 Baso % (Auto) 2.6 H Lymph # (Auto) 0.37 L [place] # (Auto) 0.1 Eos # (Auto) 0.0 Baso # (Auto) 0.0 Abs Immat Gran (auto) 0.00 Absolute Neuts (auto) 0.7 L Absolute Nucleated RBC 0.000 Nucleated RBC % 0.0 Platelet Estimate Decreased % Immature Plt Fraction 5.6 Hypochromasia 1+ Poikilocytosis 1+ Anisocytosis 1+ Helmet Cells 1+ Bridgett Cells 1+ Schistocytes None seen PT 17.7 H INR 1.4 APTT 31.9 Puncture Site Right radial Left radial ABG pH 7.514 H* 7.477 H ABG pCO2 21.7 L* 27.9 L ABG pO2 187.2 H 226.9 H ABG PO2/FiO2 Ratio 3.12 2.27 ABG HCO3 17.1 L 20.2 L ABG O2 Saturation 99.4 99.6 ABG O2 Content 12.6 L 12.0 L ABG Base Excess -4.8 -2.8 A-a Gradient 216.7 458.2 Oxyhemoglobin 99.1 98.8 Carboxyhemoglobin 0.5 Methemoglobin 0.2 Reduced Hemoglobin 0.5 Total Hemoglobin 8.7 L 8.2 L O2 Delivery Device Non-invasive vent Ventilator O2 Liters/Min Not Reportable 0.0 Minute Volume Not Reportable Vent Rate 12 24 Vent Mode Cmv FiO2 60 100 Expiratory Pressure 7 Tidal Volume 450 PEEP 5 Inspiratory Pressure 12 Peak Inspir Pressure Not Reportable Pressure Support 0 Sodium 130 L Potassium 4.1 Chloride 104 Carbon Dioxide 17 L Anion Gap 9 BUN 21 H Creatinine 0.70 Estim Creat Clear Calc 108 Estimated GFR > 60 Glucose 116 H POC Capillary Glucose Lactic Acid 2.5 H Calcium 8.2 L Phosphorus 2.7 Magnesium 2.0 Total Bilirubin 1.1 AST 22 ALT 17 Alkaline Phosphatase 74 C-Reactive Protein 18.1 H Total Protein 7.0 Albumin 2.7 L Lipase 15 L 04/17/24 11:42 WBC RBC Hgb Hct MCV MCH MCHC RDW Plt Count MPV Immature Gran % (Auto) Neut % (Auto) Lymph % (Auto) [place] % (Auto) Eos % (Auto) Baso % (Auto) Lymph # (Auto) [place] # (Auto) Eos # (Auto) Baso # (Auto) Abs Immat Gran (auto) Absolute Neuts (auto) Absolute Nucleated RBC Nucleated RBC % Platelet Estimate % Immature Plt Fraction Hypochromasia Poikilocytosis Anisocytosis Helmet Cells Bridgett Cells Schistocytes PT INR APTT Puncture Site ABG pH ABG pCO2 ABG pO2 ABG PO2/FiO2 Ratio ABG HCO3 ABG O2 Saturation ABG O2 Content ABG Base Excess A-a Gradient Oxyhemoglobin Carboxyhemoglobin Methemoglobin Reduced Hemoglobin Total Hemoglobin O2 Delivery Device O2 Liters/Min Minute Volume Vent Rate Vent Mode FiO2 Expiratory Pressure Tidal Volume PEEP Inspiratory Pressure Peak Inspir Pressure Pressure Support Sodium Potassium Chloride Carbon Dioxide Anion Gap BUN Creatinine Estim Creat Clear Calc Estimated GFR Glucose POC Capillary Glucose 117 H Lactic Acid Calcium Phosphorus Magnesium Total Bilirubin AST ALT Alkaline Phosphatase C-Reactive Protein Total Protein Albumin Lipase Quality VTE Prophylaxis VTE prophylaxis: mechanical ordered
[2024-04-17] MEDS: NOREPINEPHRINE 8 MG/D5W 250 ML 8 MG/250 ML BAG 9.38 MG IV CONT (12:25)
[2024-04-17 12:34] LABS: Triglycerides 126 mg/dL (<150)
[2024-04-17 13:39] LABS: Lactic Acid 3.1 mmol/L (0.7-2.0)
[2024-04-17] MEDS: CENTRAL LINE FLUSH 10 ML IV PUSH ×4 (14:07→21:43)
--- NOTE | 2024-04-17 14:08 | P.CONCA_ITS ---
Assessment and Plan Assessment and plan (1) Atrial fibrillation with rapid ventricular response: Code(s): I48.91 - Unspecified atrial fibrillation Status: Acute Plan 63-year-old man with HFrEF (30-35%), paroxysmal atrial fibrillation, and myelodysplastic syndrome who presented with fevers, shortness of breath, and weakness admitted for septic shock in setting of neutropenia/pancytopenia now found to have paroxysmal atrial fibrillation with RVR Paroxysmal atrial fibrillation with RVR -continue amiodarone at 1 mg/minute -chads Vasc score 1 and no strong indication for anticoagulation at this time; although he will turn 64 in a few weeks and there would be stronger indication for anticoagulation at that time -given his thrombocytopenia, clinically his risk of bleeding exceeds his risk of embolic stroke HFrEF - not volume overloaded on exam - GDMT held in setting of septic shock Sepsis - on abx History of Present Illness History of Present Illness Consult date/time: 04/17/24 14:08 Requesting physician: Horacio Gandhi MD Consult reason: atrial fibrillation Reason For Visit: Septic shock, neutropenic fever, AFib RVR Narrative: 63-year-old man with HFrEF (30-35%), paroxysmal atrial fibrillation, and myelodysplastic syndrome who presented with fevers, shortness of breath, and weakness admitted for septic shock in setting of neutropenia/pancytopenia now found to have paroxysmal atrial fibrillation with RVR. He is currently intubated and sedated with the majority of history obtained from chart review. [facility] Past Medical History Medical History Anemia Chronic pain syndrome Related to RA. Heart failure with reduced ejection fraction echo in 06/2023 showed dilated cardiomyopathy with an EF of 30 to 35% Hypothyroidism Immunocompromised state due to drug therapy Iron deficiency Pancytopenia Paroxysmal atrial fibrillation Rheumatoid arthritis Surgical History Surgical History History of appendectomy Family History Family History Father Family history of malignant neoplasm Family history of diabetes mellitus in first degree relative Colon cancer Grandparent Family history of coronary artery disease Mother Acute myocardial infarction History of blood clots Grandparent Acute myocardial infarction Mother No problems noted. Sibling History of blood clots Sibling History of blood clots Sibling History of blood clots Social History Social History Social History: Surrogate medical decision maker: Isaura Palacios, spouse. Code status: Full code. Smoking packs per day: 1 Smoking cigarettes per day: 20.0 Years smoked: 54 Smoking pack-years: 54.00 Smoking status: Former smoker Tobacco type: cigarettes Second hand tobacco smoke exposure: Yes Smoking end date: 03/10/16 Alcohol intake: never Substance use: never Substance use type: does not use Do You Feel Safe in your Home?: Yes Lack of Transportation: No Lack of Food: Never True Current Housing: I Have Housing Concerned About Future Housing: No Difficulty Paying Gas/Electric Bills: No Difficulty Paying for Meds: No Currently Unemployed: No Education: High School Diploma/GED Difficulty w/ Childcare or Family Care: No Living arrangements: with family Additional living arrangements comments: Lives with spouse and family in [place]. 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 Spiritual care concerns: No Meds Home Medications and Allergies Home Medications ?Medication ?Instructions ?Recorded ?Confirmed ?Type empagliflozin 10 mg tablet 10 mg PO DAILY #30 tabs 07/03/23 04/16/24 Rx metoprolol succinate 50 mg 50 mg PO QAM #30 tabs 07/03/23 04/16/24 Rx tablet,extended release 24 hr sacubitril 24 mg-valsartan 26 mg 1 tab PO Q12HR #60 tabs 07/03/23 04/16/24 Rx tablet (Entresto) spironolactone 25 mg tablet 25 mg PO QAM #30 tabs 07/03/23 04/16/24 Rx ascorbic acid (vitamin C) 1,000 mg 1 g PO DAILY 12/29/23 04/16/24 History capsule cholecalciferol (vitamin D3) 25 400 unit PO DAILY 12/29/23 04/16/24 History mcg (1,000 unit) capsule ferrous sulfate 325 mg (65 mg 325 mg PO BID 02/17/24 04/16/24 History iron) tablet,delayed release hydrocodone 7.5 mg-acetaminophen 1 tablet PO Q6H PRN Pain #10 tabs 02/24/24 04/16/24 Rx 325 mg tablet levothyroxine 75 mcg capsule 75 mcg PO DAILY 30 days #30 caps 02/24/24 04/16/24 Rx albuterol 90 mcg-budesonide 80 2 inh inhalation ONCE #5.9 grams 03/01/24 04/16/24 Rx mcg/actuation HFA aerosol inhaler (Airsupra) fluoxetine 20 mg capsule 20 mg PO DAILY #30 caps 03/01/24 04/16/24 Rx acyclovir 400 mg tablet 400 mg PO BID 03/20/24 04/16/24 History trazodone 50 mg tablet 50 mg PO QHS #30 tabs 03/21/24 04/16/24 Rx alprazolam 0.5 mg tablet 0.5 mg PO QHS PRN Anxiety #30 tabs 04/06/24 04/16/24 Rx Allergies Allergy/AdvReac Type Severity Reaction Status Date / Time heparin AdvReac Unknown Other Verified 04/10/24 12:01 Vital Signs Vital Signs - 24 hr 04/16/24 14:14 04/16/24 14:22 04/16/24 14:48 Temperature Pulse Rate 79 92 Respiratory Rate Blood Pressure 101/70 107/96 H Pulse Oximetry Oxygen Delivery Room Air Fraction of Inspired Oxygen 04/16/24 15:04 04/16/24 15:04 04/16/24 15:10 Temperature Pulse Rate 87 84 Respiratory Rate 28 H 36 H Blood Pressure Pulse Oximetry 98 Oxygen Delivery Room Air Fraction of Inspired Oxygen 21 04/16/24 15:13 04/16/24 16:00 04/16/24 16:00 Temperature Pulse Rate 86 90 Respiratory Rate Blood Pressure 97/54 L 107/60 Pulse Oximetry 95 Oxygen Delivery Room Air Fraction of Inspired Oxygen 04/16/24 16:00 04/16/24 16:00 04/16/24 17:40 Temperature 36.5 C Pulse Rate 91 91 94 Respiratory Rate 25 H Blood Pressure 107/60 103/62 Pulse Oximetry 95 Oxygen Delivery Fraction of Inspired Oxygen 04/16/24 18:00 04/16/24 18:00 04/16/24 19:37 Temperature Pulse Rate 103 H 101 H 156 H Respiratory Rate 20 Blood Pressure 116/58 L 103/47 L Pulse Oximetry 95 Oxygen Delivery Fraction of Inspired Oxygen 04/16/24 20:00 04/16/24 20:00 04/16/24 20:00 Temperature 36.8 C Pulse Rate 108 H 137 H 137 H Respiratory Rate 46 H 42 H Blood Pressure 123/82 Pulse Oximetry 97 90 Oxygen Delivery BiPAP Fraction of Inspired Oxygen 21 04/16/24 20:07 04/16/24 20:38 04/16/24 21:12 Temperature Pulse Rate 145 H 138 H 140 H Respiratory Rate Blood Pressure 123/82 127/76 108/62 Pulse Oximetry Oxygen Delivery Fraction of Inspired Oxygen 04/16/24 21:12 04/16/24 21:13 04/16/24 21:23 Temperature Pulse Rate 140 H 140 H 121 H Respiratory Rate 46 H Blood Pressure 108/62 108/62 Pulse Oximetry 97 Oxygen Delivery BiPAP Fraction of Inspired Oxygen 04/16/24 22:00 04/16/24 22:00 04/16/24 22:08 Temperature Pulse Rate 137 H 137 H 131 H Respiratory Rate 45 H Blood Pressure 120/94 H Pulse Oximetry 92 Oxygen Delivery Fraction of Inspired Oxygen 04/16/24 22:16 04/16/24 22:38 04/16/24 23:40 Temperature Pulse Rate 108 H 87 82 Respiratory Rate 51 H 33 H Blood Pressure 98/72 L Pulse Oximetry 100 100 Oxygen Delivery BiPAP BiPAP Fraction of Inspired Oxygen 04/17/24 00:00 04/17/24 00:00 04/17/24 00:00 Temperature 36.9 C Pulse Rate 82 85 85 Respiratory Rate 33 H 40 H Blood Pressure 90/78 L Pulse Oximetry 100 98 Oxygen Delivery BiPAP Fraction of Inspired Oxygen 04/17/24 00:10 04/17/24 02:00 04/17/24 02:00 Temperature Pulse Rate 85 83 85 Respiratory Rate 33 H Blood Pressure 90/78 L 98/51 L Pulse Oximetry 100 Oxygen Delivery Fraction of Inspired Oxygen 04/17/24 02:00 04/17/24 02:50 04/17/24 02:50 Temperature Pulse Rate 85 87 79 Respiratory Rate 30 H 30 H Blood Pressure 104/50 L Pulse Oximetry 100 Oxygen Delivery BiPAP Fraction of Inspired Oxygen 04/17/24 02:58 04/17/24 03:14 04/17/24 04:00 Temperature Pulse Rate 82 85 90 Respiratory Rate 32 H 32 H Blood Pressure 104/56 L Pulse Oximetry 100 Oxygen Delivery BiPAP Fraction of Inspired Oxygen 21 04/17/24 04:00 04/17/24 04:00 04/17/24 04:25 Temperature 37.2 C Pulse Rate 82 90 135 H Respiratory Rate 31 H Blood Pressure 104/50 L 111/59 L Pulse Oximetry 100 Oxygen Delivery Fraction of Inspired Oxygen 04/17/24 05:35 04/17/24 06:00 04/17/24 06:00 Temperature Pulse Rate 84 91 92 Respiratory Rate 34 H 36 H Blood Pressure 111/62 Pulse Oximetry 99 100 Oxygen Delivery BiPAP Fraction of Inspired Oxygen 04/17/24 06:00 04/17/24 08:00 04/17/24 08:00 Temperature 36.8 C Pulse Rate 88 89 86 Respiratory Rate 34 H Blood Pressure 114/60 117/61 Pulse Oximetry 100 Oxygen Delivery Fraction of Inspired Oxygen 04/17/24 08:12 04/17/24 08:19 04/17/24 09:25 Temperature Pulse Rate 92 91 Respiratory Rate 43 H 39 H Blood Pressure Pulse Oximetry Oxygen Delivery Fraction of Inspired Oxygen 100 04/17/24 09:30 04/17/24 09:35 04/17/24 09:50 Temperature Pulse Rate 102 H 101 H 109 H Respiratory Rate 20 Blood Pressure 133/67 Pulse Oximetry 99 Oxygen Delivery Mechanical Ventilation Fraction of Inspired Oxygen 100 04/17/24 09:57 04/17/24 10:00 04/17/24 10:00 Temperature Pulse Rate 109 H 131 H 151 H Respiratory Rate 21 H Blood Pressure 133/67 121/76 Pulse Oximetry 100 Oxygen Delivery Fraction of Inspired Oxygen 04/17/24 10:07 04/17/24 10:10 04/17/24 10:22 Temperature Pulse Rate 150 H 116 H 126 H Respiratory Rate 24 H 26 H Blood Pressure Pulse Oximetry Oxygen Delivery Fraction of Inspired Oxygen 04/17/24 10:45 04/17/24 11:00 04/17/24 11:15 Temperature Pulse Rate 88 84 Respiratory Rate 28 H 30 H Blood Pressure Pulse Oximetry Oxygen Delivery Fraction of Inspired Oxygen 60 04/17/24 11:16 04/17/24 11:24 04/17/24 12:00 Temperature Pulse Rate 85 81 79 Respiratory Rate 34 H 29 H Blood Pressure 88/48 L Pulse Oximetry 100 100 Oxygen Delivery Mechanical Ventilation Fraction of Inspired Oxygen 60 04/17/24 12:00 04/17/24 12:00 04/17/24 12:00 Temperature Pulse Rate 80 79 79 Respiratory Rate 28 H Blood Pressure 88/48 L Pulse Oximetry Oxygen Delivery Fraction of Inspired Oxygen 04/17/24 12:25 04/17/24 14:00 04/17/24 14:00 Temperature Pulse Rate 78 109 H 106 H Respiratory Rate 28 H Blood Pressure 88/51 L Pulse Oximetry Oxygen Delivery Fraction of Inspired Oxygen 04/17/24 14:00 04/17/24 14:00 Temperature Pulse Rate 109 H 109 H Respiratory Rate Blood Pressure 86/56 L 86/56 L Pulse Oximetry Oxygen Delivery Fraction of Inspired Oxygen Exam 2 Const: Other: Intubated and sedated Neck: Neck: no JVD Cardio: Rate: tachycardic Rhythm: abnormal rhythm GI: GI Palp: Yes Soft to palpation Skin: Other: warm Extrem: General: no edema Results Labs and Meds 04/17/24 05:14 04/17/24 05:14 Lab results: Cardiac Enzymes 04/17/24 Range/Units 05:14 AST 22 (17-59) U/L Coagulation 04/17/24 Range/Units 05:14 PT 17.7 H (11.1-14.7) Seconds APTT 31.9 (22.3-36.8) Seconds Lipids 04/17/24 Range/Units 05:14 Triglycerides 126 (<150) mg/dL CBC 04/17/24 Range/Units 05:14 WBC 1.1 L* (4.5-10.0) K/mm3 RBC 2.60 L (4.6-6.20) M/mm3 Hgb 7.4 L (14.0-18.0) g/dL Hct 22.1 L (42.0-52.0) % Plt Count 35 L (150-375) k/mm3 Lymph # (Auto) 0.37 L (0.9-3.2) K/mm3 [place] # (Auto) 0.1 (0.1-0.6) K/mm3 Eos # (Auto) 0.0 (0-0.3) K/mm3 Baso # (Auto) 0.0 (0.0-0.1) K/mm3 Comprehensive Metabolic Panel 04/17/24 Range/Units 05:14 Sodium 130 L (137-145) mmol/L Potassium 4.1 (3.4-5.0) mmol/L Chloride 104 (98-107) mmol/L Carbon Dioxide 17 L (22-30) mmol/L BUN 21 H (9-20) mg/dL Creatinine 0.70 (0.7-1.3) mg/dL Glucose 116 H (65-110) mg/dL Calcium 8.2 L (8.4-10.2) mg/dL AST 22 (17-59) U/L ALT 17 (6-50) U/L Alkaline Phosphatase 74 (38-126) U/L Total Protein 7.0 (6.3-8.2) g/dL Albumin 2.7 L (3.5-5.1) g/dL Intake and Output 04/16/24 04/17/24 04/17/24 23:59 07:59 15:59 Intake Total 1542.0 246.9 506.0 Output Total 1500 300 Balance 42.0 -53.1 506.0 Intake: IV 702.0 246.9 506.0 Amiodarone 360 mg/D5w 200 ml 35.6 196.9 262.5 360 mg In 200 ml @ 0.5 MG/MIN 16.667 mls/hr IV CONT .Q12H [facility] Rx#:[id number] Norepinephrine 8 mg/D5w 250 ml 14.9 8 mg In 250 ml @ 5 MCG/MIN 9. 375 mls/hr IV CONT .Q24H [facility] Rx #:[id number] Phenylephrine HCl Inj 50 mg In 0 Dextrose 5% in Water 250 ml In 245 ml @ 0 MCG/MIN IV CONT .Q0M [facility] Rx#:[id number] Propofol IV Emulsion 100 ml @ 5 78.6 MCG/KG/MIN 2.973 mls/hr IV CONT .[id number] [facility] Rx#:[id number] dilTIAZem 100 MG/100 ML 100 mg 16.4 In 100 ml @ 15 MG/HR 15 mls/hr IV CONT .Q6H40M [facility] Rx#: [id number] Cefepime 2 gm/Ns 50 ml 2 gm In 50 50 50 50 ml @ 100 mls/hr IVPB Q8H [facility] Rx#:[id number] Doxycycline 100 mg/Ns 100 ml 100 100 100 mg In 100 ml @ 100 mls/hr IVPB Q12HR [facility] Rx#:[id number] Vancomycin 1,500 mg/Ns 500 ml 1 500 ,500 mg In 500 ml @ 250 mls/hr IVPB Q12H [facility] Rx#:[id number] Oral 840 Output: Urine 1500 300 Other: # Unmeasured Voids 1 Number of Bowel Movements Today 5 Patient Weight 04/17/24 23:59 Weight 99.1 kg
[2024-04-17 14:13] LABS: Vancomycin Trough 14.6 ug/mL (10.0-20.0)
[2024-04-17] MEDS: PERFLUTREN LIPID MICROSPHERES 1.5 ML VIAL DILUTED TO 10 ML TOTAL VOLUME IV PUSH (14:45)
[2024-04-17] MEDS: PROPOFOL IV EMULSION 100 ML 23.78 MG IV CONT (14:51)
--- NOTE | 2024-04-17 15:39 | IVDEFINITY ---
Prior to administration of IV Definity the patient was educated on the risks and benefits of the imaging enhancing agent including potential adverse side effects. The patient verbalized understanding. Allergies were verified. No exclusion criteria were identified and at least one of the following inclusion criteria were met: 1) physician request, 2) patient technically difficult to image (per the [place] [employer] guidelines of two or more segments not discernable within the apical view), or 3) questionable left ventricular function. ?
--- NOTE | 2024-04-17 16:01 | PM.IMPN ---
Progress Note: A&P Assessment and Plan (1) Septic shock: Code(s): A41.9 - Sepsis, unspecified organism; R65.21 - Severe sepsis with septic shock Status: Acute Assessment and Plan: Septic shock likely related to pneumonia, also could be related to bacteremia given patient has neutropenic fever -continue cefepime, vancomycin,( 04/15) - doxycycline for atypical coverage(04/16) -absolute neutrophil count remains low -urine output has been adequate, creatinine is stable and improved -lactic acid trending down, continue to monitor -procalcitonin was 4.6 and C-reactive protein was 18.1 -04/15: Preliminary Blood cultures negative x2 -continue to wean Owen-Synephrine to maintain MAP > 65 mmHg for adequate end organ perfusion (2) Pneumonia: Code(s): J18.9 - Pneumonia, unspecified organism Status: Acute Assessment and Plan: Chest x-ray showed bilateral pulmonary diffuse reticular opacities R > L -treatment is above (3) Paroxysmal atrial fibrillation with rapid ventricular response: Code(s): I48.0 - Paroxysmal atrial fibrillation Status: Acute Assessment and Plan: Has a history of paroxysmal AFib, was in AFib RVR in the ER, given septic shock patient was started on amiodarone bolus and infusion - 04/17: Patient was also in AFib RVR overnight and this morning, responded well to amiodarone and metoprolol -currently in sinus rhythm, rate controlled (4) Neutropenic fever: Code(s): D70.9 - Neutropenia, unspecified; R50.81 - Fever presenting with conditions classified elsewhere Status: Acute Assessment and Plan: Neutropenic fevers likely related to chemotherapy which was done about 3 weeks ago. Patient has not been feeling well for about a week, complained of generalized weakness low-grade fevers -continue treatment as above -s/p one dose of filgrastim -Heme-Onc been consulted and await recommendations -neutropenic precautions (5) Pancytopenia: Code(s): D61.818 - Other pancytopenia Status: Acute Assessment and Plan: History of pancytopenia likely related to myelodysplastic syndrome leukemia, chemotherapy -follows with Dr. Tomlin, was been consulted -continue to treat underlying cause for now -transfuse as needed (6) MDS (myelodysplastic syndrome): Code(s): D46.9 - Myelodysplastic syndrome, unspecified Status: Acute Assessment and Plan: Patient with myelodysplastic syndrome with pancytopenia -consulted heme Onc (7) Leukemia: Code(s): C95.90 - Leukemia, unspecified not having achieved remission Status: Acute Assessment and Plan: Status post chemotherapy, Heme-Onc to follow (8) Rheumatoid arthritis: Code(s): M06.9 - Rheumatoid arthritis, unspecified Status: Acute Assessment and Plan: Tylenol for pain (9) Heart failure with reduced ejection fraction: Code(s): I50.20 - Unspecified systolic (congestive) heart failure Status: Acute Assessment and Plan: HFrEF with EF of 30-35% -cardiomyopathy -On Jardiance, metoprolol, Entresto, spironolactone at home -hold all these medications due to patient in septic shock, hypotension on vasopressors 06/29/2023 echocardiogram Summary 1. Definity contrast administered improved wall motion interpretation. 2. Left ventricular chamber dimension is severely enlarged. 3. Left ventricular systolic function is severely globally reduced, estimated at 30-35%. 4. The left ventricular diastolic function is abnormal. 5. E/e' 13 is mildly elevated. 6. Left atrial chamber dimension is severely enlarged. 7. There is mild mitral valve regurgitation. 8. There is trace tricuspid valve regurgitation. 9. No pulmonary hypertension, estimated pulmonary arterial systolic pressure is 28 mmHg. Plan DVT prophylaxis: SCDs, no chemoprophylaxis due to thrombocytopenia, anemia Stress ulcer prophylaxis: Protonix IV q.12 hours Nutrition: Will start tube feeds Code Status: Full code Subjective Date/time seen: 04/17/24 16:01 Interval history: patient intubated and sedated Review of Systems Review of Systems: Generalized weakness, Chills, fevers, shortness of breath. All systems reviewed & are unremarkable except as noted in HPI and below Exam Narrative: General: Intubated and sedated HEENT:? Pupils equal and reactive, sclera is clear, ETT in place Neck:? Supple Respiratory:? Coarse breath sounds bilaterally right greater than left, adequate air entry, no wheezing Cardiac:? S1-S2 normal, regular rate and rhythm Abdomen:? Soft, nontender, protuberant, hypoactive bowel sounds Extremities:? Bilateral lower extremity pitting edema, palpable pedal pulses Neuro:? Patient intubated and sedated, not following commands or opening his eyes at this time. I to intubation patient was awake, alert, confused, moving all extremities Skin:? Bruising noted Psych:? Flat affect, normal mentation Const: General: comfortable, no acute distress, well developed, alert, awake, ill appearing, average body habitus and edematous Nutritional Appearance: average body habitus and edematous Orientation/consciousness: patient oriented x3 Other: generalized pallor HENMT: Head: normal to inspection, normocephalic and atraumatic Ears: hearing grossly normal bilaterally Face/Nose/Sinus: normal facial exam Face and sinus: normal facial exam Eyes: General: appearance normal, both eyes and all related structures Pupils: Equal, round and reactive pupils present EOM: EOMs intact bilaterally Neck: Neck: full ROM, no lymphadenopathy and no JVD Thyroid: thyroid normal Lymphatic: no lymphadenopathy noted Resp: Effort & Inspection: normal respiratory effort and able to speak in complete sentences Auscultation: clear to auscultation bilaterally Cardio: Jugular venous distension: no JVD Rate: regular rate Rhythm: regular rhythm Heart sounds: S1 normal heart sound present and S2 normal heart sound present : General: Yes deferred Skin: Rashes: no rashes Wounds: no wounds Neuro: General: patient oriented x3, CN's II-XI intact bilaterally and Unable to assess gait Cranial nerves: Yes CN's II-XII intact bilaterally and Yes Equal, round and reactive pupils present Cognition (Neuro): normal cognition Speech: normal speech Gait exam (Neuro): Unable to assess gait Motor exam (neuro): 5/5 motor strength present throughout Extrem: General: normal to inspection, full ROM, no joint enlargement and no pedal edema Other: bilateral lower extremity edema Objective Data Vital Signs Vital Signs: Vital Signs - 24 hr 04/16/24 17:40 04/16/24 18:00 04/16/24 18:00 Temperature Pulse Rate 94 103 H 101 H Respiratory Rate 20 Blood Pressure 103/62 116/58 L Pulse Oximetry 95 Oxygen Delivery Fraction of Inspired Oxygen 04/16/24 19:37 04/16/24 20:00 04/16/24 20:00 Temperature Pulse Rate 156 H 108 H 137 H Respiratory Rate 46 H Blood Pressure 103/47 L Pulse Oximetry 97 Oxygen Delivery BiPAP Fraction of Inspired Oxygen 21 04/16/24 20:00 04/16/24 20:07 04/16/24 20:38 Temperature 98.2 F Pulse Rate 137 H 145 H 138 H Respiratory Rate 42 H Blood Pressure 123/82 123/82 127/76 Pulse Oximetry 90 Oxygen Delivery Fraction of Inspired Oxygen 04/16/24 21:12 04/16/24 21:12 04/16/24 21:13 Temperature Pulse Rate 140 H 140 H 140 H Respiratory Rate Blood Pressure 108/62 108/62 108/62 Pulse Oximetry Oxygen Delivery Fraction of Inspired Oxygen 04/16/24 21:23 04/16/24 22:00 04/16/24 22:00 Temperature Pulse Rate 121 H 137 H 137 H Respiratory Rate 46 H 45 H Blood Pressure 120/94 H Pulse Oximetry 97 92 Oxygen Delivery BiPAP Fraction of Inspired Oxygen 04/16/24 22:08 04/16/24 22:16 04/16/24 22:38 Temperature Pulse Rate 131 H 108 H 87 Respiratory Rate 51 H Blood Pressure 98/72 L Pulse Oximetry 100 Oxygen Delivery BiPAP Fraction of Inspired Oxygen 04/16/24 23:40 04/17/24 00:00 04/17/24 00:00 Temperature Pulse Rate 82 82 85 Respiratory Rate 33 H 33 H Blood Pressure Pulse Oximetry 100 100 Oxygen Delivery BiPAP BiPAP Fraction of Inspired Oxygen 04/17/24 00:00 04/17/24 00:10 04/17/24 02:00 Temperature 98.5 F Pulse Rate 85 85 83 Respiratory Rate 40 H Blood Pressure 90/78 L 90/78 L Pulse Oximetry 98 Oxygen Delivery Fraction of Inspired Oxygen 04/17/24 02:00 04/17/24 02:00 04/17/24 02:50 Temperature Pulse Rate 85 85 87 Respiratory Rate 33 H 30 H Blood Pressure 98/51 L 104/50 L Pulse Oximetry 100 100 Oxygen Delivery BiPAP Fraction of Inspired Oxygen 04/17/24 02:50 04/17/24 02:58 04/17/24 03:14 Temperature Pulse Rate 79 82 85 Respiratory Rate 30 H 32 H Blood Pressure 104/56 L Pulse Oximetry Oxygen Delivery Fraction of Inspired Oxygen 04/17/24 04:00 04/17/24 04:00 04/17/24 04:00 Temperature 99 F Pulse Rate 90 82 90 Respiratory Rate 32 H 31 H Blood Pressure 104/50 L Pulse Oximetry 100 100 Oxygen Delivery BiPAP Fraction of Inspired Oxygen 04/17/24 04:25 04/17/24 05:35 04/17/24 06:00 Temperature Pulse Rate 135 H 84 91 Respiratory Rate 34 H Blood Pressure 111/59 L Pulse Oximetry 99 Oxygen Delivery BiPAP Fraction of Inspired Oxygen 04/17/24 06:00 04/17/24 06:00 04/17/24 08:00 Temperature 98.2 F Pulse Rate 92 88 89 Respiratory Rate 36 H 34 H Blood Pressure 111/62 114/60 117/61 Pulse Oximetry 100 100 Oxygen Delivery Fraction of Inspired Oxygen 04/17/24 08:00 04/17/24 08:00 04/17/24 08:12 Temperature Pulse Rate 86 92 Respiratory Rate 43 H Blood Pressure Pulse Oximetry Oxygen Delivery BiPAP Fraction of Inspired Oxygen 04/17/24 08:19 04/17/24 09:25 04/17/24 09:30 Temperature Pulse Rate 91 102 H Respiratory Rate 39 H 20 Blood Pressure Pulse Oximetry Oxygen Delivery Fraction of Inspired Oxygen 100 04/17/24 09:35 04/17/24 09:50 04/17/24 09:57 Temperature Pulse Rate 101 H 109 H 109 H Respiratory Rate Blood Pressure 133/67 133/67 Pulse Oximetry 99 Oxygen Delivery Mechanical Ventilation Fraction of Inspired Oxygen 100 04/17/24 10:00 04/17/24 10:00 04/17/24 10:07 Temperature Pulse Rate 131 H 151 H 150 H Respiratory Rate 21 H Blood Pressure 121/76 Pulse Oximetry 100 Oxygen Delivery Fraction of Inspired Oxygen 04/17/24 10:10 04/17/24 10:22 04/17/24 10:45 Temperature Pulse Rate 116 H 126 H 88 Respiratory Rate 24 H 26 H 28 H Blood Pressure Pulse Oximetry Oxygen Delivery Fraction of Inspired Oxygen 04/17/24 11:00 04/17/24 11:15 04/17/24 11:16 Temperature Pulse Rate 84 85 Respiratory Rate 30 H 34 H Blood Pressure Pulse Oximetry Oxygen Delivery Fraction of Inspired Oxygen 60 04/17/24 11:24 04/17/24 12:00 04/17/24 12:00 Temperature Pulse Rate 81 79 80 Respiratory Rate 29 H Blood Pressure 88/48 L Pulse Oximetry 100 100 Oxygen Delivery Mechanical Ventilation Fraction of Inspired Oxygen 60 04/17/24 12:00 04/17/24 12:00 04/17/24 12:00 Temperature Pulse Rate 79 79 Respiratory Rate 28 H Blood Pressure 88/48 L Pulse Oximetry Oxygen Delivery Mechanical Ventilation Fraction of Inspired Oxygen 04/17/24 12:00 04/17/24 12:25 04/17/24 14:00 Temperature Pulse Rate 78 109 H Respiratory Rate Blood Pressure 88/51 L Pulse Oximetry Oxygen Delivery Fraction of Inspired Oxygen 60 04/17/24 14:00 04/17/24 14:00 04/17/24 14:00 Temperature Pulse Rate 106 H 109 H 109 H Respiratory Rate 28 H Blood Pressure 86/56 L 86/56 L Pulse Oximetry Oxygen Delivery Fraction of Inspired Oxygen 04/17/24 14:00 04/17/24 14:50 04/17/24 14:51 Temperature Pulse Rate 110 H 110 H 111 H Respiratory Rate 27 H 29 H 27 H Blood Pressure 86/56 L Pulse Oximetry 100 Oxygen Delivery Fraction of Inspired Oxygen 04/17/24 14:51 04/17/24 14:56 04/17/24 15:04 Temperature Pulse Rate 111 H 109 H 115 H Respiratory Rate 27 H 28 H Blood Pressure Pulse Oximetry 100 Oxygen Delivery Mechanical Ventilation Fraction of Inspired Oxygen 50 04/17/24 15:57 04/17/24 15:57 Temperature Pulse Rate 129 H 129 H Respiratory Rate Blood Pressure 88/63 L Pulse Oximetry Oxygen Delivery Fraction of Inspired Oxygen Intake/Output Intake/Output: Intake & Output 04/14/24 04/15/24 04/16/24 04/17/24 23:59 23:59 23:59 23:59 Intake Total 2500 3110.7 838.1 Output Total 2648 300 Balance 2500 462.7 538.1 Meds/Results Medications: Active Medications Generic Name Dose Route Start Last Admin Trade Name Freq PRN Reason Stop Dose Admin Acyclovir 400 mg 04/16/24 09:00 04/17/24 11:38 Acyclovir 400 Mg Tablet PO 400 mg BID KAVON Administration Albuterol/Ipratropium 3 ml 04/16/24 14:55 04/17/24 14:49 Ipratropium 0.5 Mg/Albuterol Sulfate 2.5 Mg Ampul.Neb 3 Ml INHALATION 3 ml Q6HRT KAVON Administration Dextrose 12.5 gm 04/17/24 12:00 Dextrose 50% 25 Gm/50 Ml Syringe IV PUSH PRN PRN Hypoglycemia Protocol Glucagon 1 mg 04/17/24 12:00 Glucagon For Inj 1 Mg Vial IM PRN PRN Hypoglycemia Protocol Glucose 15 gm 04/17/24 12:00 Glucose Oral Gel 15 Gm Of Glucse In 37.5 Gm Tube PO PRN PRN Hypoglycemia Protocol Norepinephrine Bitartrate 8 mg in 250 mls @ 9.375 mls/hr 04/15/24 20:50 04/16/24 07:41 Levophed 8 Mg/D5w 250 Ml IV CONT Not Given .Q24H KAVON Protocol 5 MCG/MIN Cefepime HCl 2 gm in 50 mls @ 100 mls/hr 04/16/24 08:00 04/17/24 09:00 Maxipime 2 Gm/Ns 50 Ml IVPB Infused Q8H KAVON Infusion Doxycycline Hyclate 100 mg in 100 mls @ 100 mls/hr 04/16/24 11:30 04/17/24 09:30 Vibramycin 100 Mg/Ns 100 Ml IVPB Infused Q12HR KAVON Infusion Amiodarone HCl/Dextrose 360 mg in 200 mls @ 33.333 mls/hr 04/17/24 02:57 04/17/24 15:57 Nexterone 360 Mg/D5w 200 Ml IV CONT 1 mg/min .Q6H KAVON 33.33 mls/hr Administration 1 MG/MIN Propofol 100 mls @ 23.784 mls/hr 04/17/24 09:15 04/17/24 14:51 Diprivan IV CONT 40 mcg/kg/min .Q4H13M KAVON 23.78 mls/hr Administration Protocol 40 MCG/KG/MIN Norepinephrine Bitartrate 8 mg in 250 mls @ 9.375 mls/hr 04/17/24 12:00 04/17/24 14:00 Levophed 8 Mg/D5w 250 Ml IV CONT 5 mcg/min .Q24H KAVON 9.38 mls/hr Titration Protocol 5 MCG/MIN Dextrose 1,000 mls @ 100 mls/hr 04/17/24 12:00 Dextrose 5% 1,000 Ml IVPB PRN PRN Hypoglycemia Protocol Vancomycin HCl 1,500 mg in 500 mls @ 250 mls/hr 04/17/24 16:00 Vancomycin 1,500 Mg/Ns 500 Ml IVPB Q12H KAVON Insulin Aspart 2 - 5 units 04/17/24 18:00 Insulin Aspart (*Bkc) 100 Units/Ml SUB-Q Q6HR KAVON Protocol Levothyroxine Sodium 75 mcg 04/17/24 06:30 04/17/24 06:53 Levothyroxine Sodium 75 Mcg Tablet PO 75 mcg DAILY@0630 KAVON Administration Metoprolol Tartrate 5 mg 04/17/24 10:27 Metoprolol Tartrate Inj 5 Mg/5 Ml Vial IV PUSH Q6H PRN Tachyarrhythmias Multi-Ingred Cream/Lotion/Oil/Oint 1 applic 04/17/24 09:00 04/17/24 09:59 Mineral Oil/White Petrolatum Ointment EACH EYE Not Given Q12HR KAVON Pantoprazole Sodium 40 mg 04/16/24 21:00 04/17/24 08:33 Pantoprazole Sodium Iv 40 Mg Vial IV PUSH 40 mg Q12H KAVON Administration Sodium Chloride 10 ml 04/17/24 14:00 04/17/24 14:07 Central Line Flush IV PUSH 10 ml Q8HR KAVON Administration Sodium Chloride 10 ml 04/17/24 14:00 04/17/24 14:07 Central Line Flush IV PUSH 10 ml Q8HR KAVON Administration Sodium Chloride 10 ml 04/17/24 07:18 Central Line Flush IV PUSH PRN PRN before/after int. infusion Sodium Chloride 20 ml 04/17/24 07:18 Central Line Flush IV PUSH PRN PRN after blood draws Radiology Results: ITS Impressions Chest X-Ray 04/17/24 09:43 IMPRESSION: Cardiomegaly with cardiac decompensation and pulmonary edema. Pneumonitis is not excluded. Follow-up advised. Left basilar atelectasis versus pneumonia. Labs Labs: Laboratory Results - last 24 hr 04/16/24 04/17/24 04/17/24 22:28 05:14 10:59 WBC 1.1 L* RBC 2.60 L Hgb 7.4 L Hct 22.1 L MCV 85.0 MCH 28.5 MCHC 33.5 RDW 17.4 H Plt Count 35 L MPV 10.3 Immature Gran % (Auto) 0.0 Neut % (Auto) 58.8 Lymph % (Auto) 32.5 [place] % (Auto) 6.1 Eos % (Auto) 0.0 Baso % (Auto) 2.6 H Lymph # (Auto) 0.37 L [place] # (Auto) 0.1 Eos # (Auto) 0.0 Baso # (Auto) 0.0 Abs Immat Gran (auto) 0.00 Absolute Neuts (auto) 0.7 L Absolute Nucleated RBC 0.000 Nucleated RBC % 0.0 Platelet Estimate Decreased % Immature Plt Fraction 5.6 Hypochromasia 1+ Poikilocytosis 1+ Anisocytosis 1+ Helmet Cells 1+ Bridgett Cells 1+ Schistocytes None seen PT 17.7 H INR 1.4 APTT 31.9 Puncture Site Right radial Left radial ABG pH 7.514 H* 7.477 H ABG pCO2 21.7 L* 27.9 L ABG pO2 187.2 H 226.9 H ABG PO2/FiO2 Ratio 3.12 2.27 ABG HCO3 17.1 L 20.2 L ABG O2 Saturation 99.4 99.6 ABG O2 Content 12.6 L 12.0 L ABG Base Excess -4.8 -2.8 A-a Gradient 216.7 458.2 Oxyhemoglobin 99.1 98.8 Carboxyhemoglobin 0.5 Methemoglobin 0.2 Reduced Hemoglobin 0.5 Total Hemoglobin 8.7 L 8.2 L O2 Delivery Device Non-invasive vent Ventilator O2 Liters/Min Not Reportable 0.0 Minute Volume Not Reportable Vent Rate 12 24 Vent Mode Cmv FiO2 60 100 Expiratory Pressure 7 Tidal Volume 450 PEEP 5 Inspiratory Pressure 12 Peak Inspir Pressure Not Reportable Pressure Support 0 Sodium 130 L Potassium 4.1 Chloride 104 Carbon Dioxide 17 L Anion Gap 9 BUN 21 H Creatinine 0.70 Estim Creat Clear Calc 108 Estimated GFR > 60 Glucose 116 H POC Capillary Glucose Lactic Acid 2.5 H Calcium 8.2 L Phosphorus 2.7 Magnesium 2.0 Total Bilirubin 1.1 AST 22 ALT 17 Alkaline Phosphatase 74 C-Reactive Protein 18.1 H Total Protein 7.0 Albumin 2.7 L Triglycerides 126 Lipase 15 L Vancomycin Trough 04/17/24 04/17/24 04/17/24 11:42 13:19 13:20 WBC RBC Hgb Hct MCV MCH MCHC RDW Plt Count MPV Immature Gran % (Auto) Neut % (Auto) Lymph % (Auto) [place] % (Auto) Eos % (Auto) Baso % (Auto) Lymph # (Auto) [place] # (Auto) Eos # (Auto) Baso # (Auto) Abs Immat Gran (auto) Absolute Neuts (auto) Absolute Nucleated RBC Nucleated RBC % Platelet Estimate % Immature Plt Fraction Hypochromasia Poikilocytosis Anisocytosis Helmet Cells Bridgett Cells Schistocytes PT INR APTT Puncture Site ABG pH ABG pCO2 ABG pO2 ABG PO2/FiO2 Ratio ABG HCO3 ABG O2 Saturation ABG O2 Content ABG Base Excess A-a Gradient Oxyhemoglobin Carboxyhemoglobin Methemoglobin Reduced Hemoglobin Total Hemoglobin O2 Delivery Device O2 Liters/Min Minute Volume Vent Rate Vent Mode FiO2 Expiratory Pressure Tidal Volume PEEP Inspiratory Pressure Peak Inspir Pressure Pressure Support Sodium Potassium Chloride Carbon Dioxide Anion Gap BUN Creatinine Estim Creat Clear Calc Estimated GFR Glucose POC Capillary Glucose 117 H Lactic Acid 3.1 H Calcium Phosphorus Magnesium Total Bilirubin AST ALT Alkaline Phosphatase C-Reactive Protein Total Protein Albumin Triglycerides Lipase Vancomycin Trough 14.6 Quality VTE Prophylaxis VTE prophylaxis: mechanical ordered
--- NOTE | 2024-04-17 17:14 | PC.NURSE ---
Notified MD of patient temp of 101. Received order for tylenol 650mg through tube. order read back and verified.
[2024-04-17] MEDS: ACETAMINOPHEN 325 MG TABLET 650 MG FEED TUBE (17:19)
[2024-04-17 17:36] LABS: Glucose Point of Care 104 mg/dl (65-105)
[2024-04-17] MEDS: PROPOFOL IV EMULSION 100 ML 26.76 MG IV CONT ×2 (17:58→21:34)
[2024-04-17] MEDS: MINERAL OIL/WHITE PETROLATUM OINTMENT 1 APPLIC EACH EYE (21:43)
[2024-04-18] VITALS (72 sets, daily range): BP systolic 84–118; BP diastolic 52–73; PULSE 70–117; RESP 16–36; TEMP 37.2–37.9; O2SAT 99–100
[2024-04-18] MEDS: CEFEPIME 2 GM/NS 50 ML 2 GM/50 ML BAG IVPB ×4 (00:24→23:44)
[2024-04-18 00:51] LABS: Glucose Point of Care 119 mg/dl (65-105)
[2024-04-18] MEDS: PROPOFOL IV EMULSION 100 ML 29.73 MG IV CONT ×4 (01:01→10:48)
[2024-04-18] MEDS: IPRATROPIUM 0.5 MG/ALBUTEROL SULFATE 2.5 MG AMPUL.NEB 3 ML INHALATION ×2 (03:14→07:47)
[2024-04-18] MEDS: AMIODARONE 360 MG/D5W 200 ML 360 MG/200 ML BAG 33.33 MG IV CONT ×4 (04:02→21:55)
[2024-04-18] MEDS: VANCOMYCIN 1,500 MG/NS 500 ML 1,500 MG/500 ML BAG 250 MG IVPB ×2 (04:02→16:15)
[2024-04-18] MEDS: CENTRAL LINE FLUSH 10 ML IV PUSH ×8 (05:58→20:26)
[2024-04-18] MEDS: LEVOTHYROXINE SODIUM 75 MCG TABLET PO (05:58)
[2024-04-18 06:12] LABS: Basophils Percent Auto 1.5 % (0.2-1.2); Hematocrit 21.8 % (42.0-52.0); Hemoglobin 7.3 g/dL (14.0-18.0); Immature Granulocyte Absolute 0.13 K/mm3 (0.00-0.031); Immature Granulocyte Percent A 6.6 % (0-0.5); Lymphocytes Absolute Auto 0.68 K/mm3 (0.9-3.2); Lymphocytes Percent Auto 34.5 % (18.3-44.2); Mean Corpuscular HGB Conc 33.5 g/dl (32-36); Mean Corpuscular Hemoglobin 29.1 pg (26-34); Mean Corpuscular Volume 86.9 fl (80-100); Mean Platelet Volume 11.5 fl (7.4-10.4); Monocytes Absolute Auto 0.1 K/mm3 (0.1-0.6); Monocytes Percent Auto 6.6 % (2.6-8.5); Neutrophils Percent Auto 50.8 % (45.5-73.1); Platelet Count Result 43 k/mm3 (150-375); Red Blood Count 2.51 M/mm3 (4.6-6.20); Red Cell Distribution Width 17.9 % (11.5-14.5)
[2024-04-18 06:14] LABS: Alveolar/Arterial O2 Gradient 139.8 mmHg; Base Excess ABG -2.5 mEq/l (+/-2.0); Carboxyhemoglobin 1.9 % THb (0-2.0); Fractional Inspired Oxygen 40 %; HCO3 ABG 21.1 mEq/l (22.0-26.0); Methemoglobin ABG 0.4 %THb (0-1.5); Oxygen Content ABG 7.5 %vol (16.0-22.0); Oxygen Saturation ABG 98.4 % (95.0-100.0); PO2 ABG 110.9 mmHg (80.0-100.0); PO2 FiO2 Ratio Arterial Blood 2.77 %; Reduced Hemoglobin 0.7 %THb (0-5.0); pH ABG 7.465 (7.350-7.450)
[2024-04-18 06:16] LABS: Device VENTILATOR; Modified Allen's Test Pass; Site Drawn RIGHT RADIAL; Total Hemoglobin 5.3 g/dL (12.0-18.0)
[2024-04-18 06:17] LABS: Arterial Blood Gas PEEP 5 cmH2O; Arterial Blood Gas Vent Mode CMV; Arterial Blood Gas Ventilator rate 20 /MIN
[2024-04-18 06:18] LABS: Arterial Blood Gas Tidal Volume 450 ml
[2024-04-18 06:23] LABS: Lactic Acid Reflex 1.8 mmol/L (0.7-2.0)
[2024-04-18 06:28] LABS: Alanine Aminotransferase 12 U/L (6-50); Albumin Level 2.3 g/dL (3.5-5.1); Alkaline Phosphatase 68 U/L (38-126); Anion Gap 6 mmol/L (4-12); Aspartate Amino Transferase 17 U/L (17-59); Bilirubin,Total 0.9 mg/dL (0.2-1.3); Blood Urea Nitrogen 17 mg/dL (9-20); Calcium 7.7 mg/dL (8.4-10.2); Carbon Dioxide 21 mmol/L (22-30); Chloride 105 mmol/L (98-107); Estimated CRCL calculation 123 ml/min; Estimated Glomerular Filt Rate > 60; Glucose 114 mg/dL (65-110); Magnesium 2.1 mg/dL (1.6-2.3); Phosphorus 3.5 mg/dL (2.5-4.5); Potassium 3.6 mmol/L (3.4-5.0); Sodium 132 mmol/L (137-145)
[2024-04-18 06:59] LABS: Anisocytosis 1+; Hypochromasia 1+; Platelet Estimate Decreased (Adequate)
[2024-04-18 07:00] LABS: Schistocytes None Seen
[2024-04-18] MEDS: NOREPINEPHRINE 8 MG/D5W 250 ML 8 MG/250 ML BAG 15 MG IV CONT (07:28)
[2024-04-18] MEDS: DOXYCYCLINE 100 MG/NS 100 ML 100 MG/100 ML BAG IVPB ×2 (08:12→20:24)
[2024-04-18] MEDS: PANTOPRAZOLE SODIUM IV 40 MG VIAL IV PUSH ×2 (08:13→20:25)
[2024-04-18] MEDS: ACYCLOVIR 400 MG TABLET PO ×2 (08:13→16:16)
[2024-04-18] MEDS: MINERAL OIL/WHITE PETROLATUM OINTMENT 1 APPLIC EACH EYE ×2 (08:19→20:25)
[2024-04-18] MEDS: FENTANYL 2,500MCG/NS250ML(*CRX 2,500 MCG/250 ML BAG IV CONT (08:44)
[2024-04-18 09:03] LABS: NT Pro B Type Natriuretic Pept 7180 pg/mL (19.9-100)
[2024-04-18] MEDS: CALCIUM GLUC 2,000 MG/NS 100ML 2,000 MG/100 ML BAG 100 MG IVPB (10:02)
[2024-04-18] MEDS: FUROSEMIDE INJ 100 MG/10 ML VIAL 80 MG IV PUSH (10:03)
--- NOTE | 2024-04-18 10:41 | WPDINTPN ---
Progress Note: A&P Assessment and Plan (1) Septic shock: Code(s): A41.9 - Sepsis, unspecified organism; R65.21 - Severe sepsis with septic shock Status: Acute Assessment and Plan: Septic shock likely related to pneumonia, also could be related to bacteremia given patient has neutropenic fever -continue cefepime, will discontinue vancomycin since MRSA screen is negative and cultures have been negative - doxycycline for atypical coverage(04/16) for 5 days -WBC and neutrophil count improving -lactic acid level has normalized -procalcitonin was 4.6 and C-reactive protein was 18.1 -04/15: Preliminary Blood cultures negative x2 -continue Levophed to maintain mean arterial pressure -hold further IV fluids due to congestive heart failure (2) Acute respiratory failure: Code(s): J96.00 - Acute respiratory failure, unspecified whether with hypoxia or hypercapnia Status: Acute Assessment and Plan: Acute respiratory failure secondary to suggestive heart failure and pneumonia ABG and chest x-ray reviewed Decrease tidal volume to 420 and rate to 18 Lasix IV Will hold further weaning until hemodynamics are improved (3) Heart failure with reduced ejection fraction: Code(s): I50.20 - Unspecified systolic (congestive) heart failure Status: Acute Assessment and Plan: HFrEF with EF of 30-35% -cardiomyopathy -On Jardiance, metoprolol, Entresto, spironolactone at home -hold all these medications due to patient in septic shock, hypotension on vasopressors -Lasix IV 06/29/2023 echocardiogram Summary 1. Definity contrast administered improved wall motion interpretation. 2. Left ventricular chamber dimension is severely enlarged. 3. Left ventricular systolic function is severely globally reduced, estimated at 30-35%. 4. The left ventricular diastolic function is abnormal. 5. E/e' 13 is mildly elevated. 6. Left atrial chamber dimension is severely enlarged. 7. There is mild mitral valve regurgitation. 8. There is trace tricuspid valve regurgitation. 9. No pulmonary hypertension, estimated pulmonary arterial systolic pressure is 28 mmHg. (4) Pneumonia: Code(s): J18.9 - Pneumonia, unspecified organism Status: Acute Assessment and Plan: Chest x-ray showed bilateral pulmonary diffuse reticular opacities R > L -treatment is above (5) Paroxysmal atrial fibrillation with rapid ventricular response: Code(s): I48.0 - Paroxysmal atrial fibrillation Status: Acute Assessment and Plan: Has a history of paroxysmal AFib, was in AFib RVR in the ER, given septic shock patient was started on amiodarone bolus and infusion - 04/17: Patient was also in AFib RVR overnight and this morning, responded well to amiodarone and metoprolol Currently rate controlled (6) Neutropenic fever: Code(s): D70.9 - Neutropenia, unspecified; R50.81 - Fever presenting with conditions classified elsewhere Status: Acute Assessment and Plan: Neutropenic fevers likely related to chemotherapy which was done about 3 weeks ago. Patient has not been feeling well for about a week, complained of generalized weakness low-grade fevers -continue treatment as above -s/p one dose of filgrastim -Heme-Onc been consulted and await recommendations -neutropenic precautions (7) Pancytopenia: Code(s): D61.818 - Other pancytopenia Status: Acute Assessment and Plan: History of pancytopenia likely related to myelodysplastic syndrome leukemia, chemotherapy -follows with Dr. Tomlin, was been consulted -continue to treat underlying cause for now -transfuse as needed (8) MDS (myelodysplastic syndrome): Code(s): D46.9 - Myelodysplastic syndrome, unspecified Status: Acute Assessment and Plan: Patient with myelodysplastic syndrome with pancytopenia -consulted heme Onc (9) Leukemia: Code(s): C95.90 - Leukemia, unspecified not having achieved remission Status: Acute Assessment and Plan: Status post chemotherapy, Heme-Onc to follow (10) Rheumatoid arthritis: Code(s): M06.9 - Rheumatoid arthritis, unspecified Status: Acute Assessment and Plan: Currently sedated. Start fentanyl for analgesia-sedation Plan DVT prophylaxis: SCDs, no chemoprophylaxis due to thrombocytopenia, anemia Stress ulcer prophylaxis: Protonix IV q.12 hours Nutrition: Advance tube feeds Code Status: Full code Critical Care Time Spent: 34 minutes Due to a high probability of clinically significant, life threatening deterioration, the patient required my highest level of preparedness to intervene emergently and I personally spent this critical care time directly and personally managing the patient. This critical care time included obtaining a history; examining the patient; pulse oximetry; ordering and review of studies; arranging urgent treatment with development of a management plan; evaluation of patient's response to treatment; frequent reassessment; and discussions with other providers. It was exclusive of separately billable procedures and treating other patients and teaching time. Please see Assessment and Plan section and the rest of the note for further information on patient assessment and treatment This dictation may have been done utilizing a voice recognition system. Attempts have been made to correct errors. However, there may be uncorrected grammatical, spelling, and recognitions errors present. Subjective Date/time seen: 04/18/24 Overnight events reviewed. Low-grade fever Continues to be on mechanical ventilation 40% of On tube feeds Continues to be sedated with propofol Continues to be on amiodarone infusion. Still tachycardic although ventricular rate is much better controlled than before On Levophed infusion Other Vitals acceptable Review of Systems Review of Systems: ROS unobtainable: Yes unobtainable due to endotracheal tube, unobtainable due to medical condition and unobtainable due to mental status Exam Narrative: General: Intubated and sedated HEENT:? Pupils equal and reactive, sclera is clear, ETT in place Neck:? Supple Respiratory:? Coarse breath sounds bilaterally right greater than left, adequate air entry, no wheezing Cardiac:? Tachycardic, irregular Abdomen:? Soft, nontender, protuberant, hypoactive bowel sounds Extremities:? Bilateral lower extremity pitting edema, palpable pedal pulses Neuro:? Patient intubated and sedated, not following commands or opening his eyes at this time. He does move all his extremities spontaneously intermittently Skin:? Bruising noted Psych:? Flat affect, normal mentation Objective Data Vital Signs Vital Signs: Vital Signs - 24 hr 04/17/24 10:45 04/17/24 11:00 04/17/24 11:15 Temperature Pulse Rate 88 84 Respiratory Rate 28 H 30 H Blood Pressure Pulse Oximetry Oxygen Delivery Fraction of Inspired Oxygen 60 04/17/24 11:16 04/17/24 11:24 04/17/24 12:00 Temperature Pulse Rate 85 81 79 Respiratory Rate 34 H 29 H Blood Pressure 88/48 L Pulse Oximetry 100 100 Oxygen Delivery Mechanical Ventilation Fraction of Inspired Oxygen 60 04/17/24 12:00 04/17/24 12:00 04/17/24 12:00 Temperature Pulse Rate 80 79 79 Respiratory Rate 28 H Blood Pressure 88/48 L Pulse Oximetry Oxygen Delivery Fraction of Inspired Oxygen 04/17/24 12:00 04/17/24 12:00 04/17/24 12:25 Temperature Pulse Rate 78 Respiratory Rate Blood Pressure 88/51 L Pulse Oximetry Oxygen Delivery Mechanical Ventilation Fraction of Inspired Oxygen 60 04/17/24 14:00 04/17/24 14:00 04/17/24 14:00 Temperature Pulse Rate 109 H 106 H 109 H Respiratory Rate 28 H Blood Pressure 86/56 L Pulse Oximetry Oxygen Delivery Fraction of Inspired Oxygen 04/17/24 14:00 04/17/24 14:00 04/17/24 14:50 Temperature Pulse Rate 109 H 110 H 110 H Respiratory Rate 27 H 29 H Blood Pressure 86/56 L 86/56 L Pulse Oximetry 100 Oxygen Delivery Fraction of Inspired Oxygen 04/17/24 14:51 04/17/24 14:51 04/17/24 14:56 Temperature Pulse Rate 111 H 111 H 109 H Respiratory Rate 27 H 27 H Blood Pressure Pulse Oximetry 100 Oxygen Delivery Mechanical Ventilation Fraction of Inspired Oxygen 50 04/17/24 15:04 04/17/24 15:30 04/17/24 15:57 Temperature Pulse Rate 115 H 123 H 129 H Respiratory Rate 28 H 32 H Blood Pressure Pulse Oximetry Oxygen Delivery Fraction of Inspired Oxygen 04/17/24 15:57 04/17/24 16:00 04/17/24 16:00 Temperature Pulse Rate 129 H 126 H 124 H Respiratory Rate 30 H Blood Pressure 88/63 L 69/57 L Pulse Oximetry Oxygen Delivery Fraction of Inspired Oxygen 04/17/24 16:00 04/17/24 16:00 04/17/24 16:00 Temperature Pulse Rate 116 H 115 H Respiratory Rate Blood Pressure Pulse Oximetry 98 Oxygen Delivery Mechanical Ventilation Fraction of Inspired Oxygen 40 60 04/17/24 16:00 04/17/24 17:00 04/17/24 17:20 Temperature 38.5 C H Pulse Rate 123 H 113 H Respiratory Rate 27 H Blood Pressure 103/65 Pulse Oximetry 99 98 Oxygen Delivery Mechanical Ventilation Fraction of Inspired Oxygen 40 04/17/24 17:30 04/17/24 17:58 04/17/24 17:58 Temperature Pulse Rate 111 H 120 H 120 H Respiratory Rate 27 H 27 H Blood Pressure 118/68 Pulse Oximetry Oxygen Delivery Fraction of Inspired Oxygen 04/17/24 18:00 04/17/24 18:00 04/17/24 18:00 Temperature Pulse Rate 119 H 116 H 116 H Respiratory Rate Blood Pressure 96/47 L 96/47 L Pulse Oximetry Oxygen Delivery Fraction of Inspired Oxygen 04/17/24 18:03 04/17/24 20:00 04/17/24 20:00 Temperature 37.8 C H Pulse Rate 103 H 103 H Respiratory Rate 25 H Blood Pressure 101/53 L Pulse Oximetry Oxygen Delivery Fraction of Inspired Oxygen 04/17/24 20:00 04/17/24 20:00 04/17/24 20:00 Temperature 38.0 C H Pulse Rate 103 H 103 H 104 H Respiratory Rate 25 H 25 H Blood Pressure 101/53 L 101/53 L Pulse Oximetry 100 100 Oxygen Delivery Mechanical Ventilation Fraction of Inspired Oxygen 40 04/17/24 20:00 04/17/24 20:00 04/17/24 20:39 Temperature Pulse Rate 108 H 104 H Respiratory Rate Blood Pressure Pulse Oximetry 100 Oxygen Delivery Mechanical Ventilation Fraction of Inspired Oxygen 40 40 04/17/24 20:43 04/17/24 20:52 04/17/24 21:16 Temperature Pulse Rate 113 H 112 H 110 H Respiratory Rate 25 H 26 H 24 H Blood Pressure Pulse Oximetry Oxygen Delivery Fraction of Inspired Oxygen 04/17/24 21:30 04/17/24 21:31 04/17/24 21:34 Temperature Pulse Rate 121 H 112 H 116 H Respiratory Rate 30 H 34 H 32 H Blood Pressure 109/69 Pulse Oximetry Oxygen Delivery Fraction of Inspired Oxygen 04/17/24 21:34 04/17/24 21:36 04/17/24 21:36 Temperature Pulse Rate 116 H 103 H 103 H Respiratory Rate 32 H Blood Pressure 109/69 109/69 Pulse Oximetry Oxygen Delivery Fraction of Inspired Oxygen 04/17/24 21:45 04/17/24 21:46 04/17/24 21:54 Temperature Pulse Rate 101 H 113 H 109 H Respiratory Rate 29 H 29 H 32 H Blood Pressure 105/59 L Pulse Oximetry Oxygen Delivery Fraction of Inspired Oxygen 04/17/24 22:00 04/17/24 22:00 04/17/24 22:00 Temperature Pulse Rate 107 H 112 H 105 H Respiratory Rate 25 H Blood Pressure 106/66 106/66 Pulse Oximetry 99 Oxygen Delivery Fraction of Inspired Oxygen 04/17/24 22:00 04/17/24 22:00 04/17/24 22:01 Temperature Pulse Rate 110 H 115 H 112 H Respiratory Rate 31 H 29 H 27 H Blood Pressure 106/66 Pulse Oximetry Oxygen Delivery Fraction of Inspired Oxygen 04/17/24 22:15 04/17/24 22:16 04/17/24 22:24 Temperature Pulse Rate 100 105 H 103 H Respiratory Rate 24 H 24 H Blood Pressure 88/58 L 88/58 L Pulse Oximetry Oxygen Delivery Fraction of Inspired Oxygen 04/17/24 22:30 04/17/24 22:30 04/17/24 22:31 Temperature Pulse Rate 107 H 123 H 106 H Respiratory Rate 25 H 27 H Blood Pressure 83/61 L 83/61 L Pulse Oximetry Oxygen Delivery Fraction of Inspired Oxygen 04/17/24 22:45 04/17/24 22:45 04/17/24 22:46 Temperature Pulse Rate 71 104 H 114 H Respiratory Rate 25 H 24 H Blood Pressure 99/63 L 99/63 L Pulse Oximetry 100 Oxygen Delivery Fraction of Inspired Oxygen 04/17/24 23:00 04/17/24 23:00 04/17/24 23:01 Temperature Pulse Rate 104 H 106 H 102 H Respiratory Rate 24 H 23 H Blood Pressure 92/64 L 92/64 L Pulse Oximetry Oxygen Delivery Fraction of Inspired Oxygen 04/17/24 23:15 04/17/24 23:16 04/17/24 23:30 Temperature Pulse Rate 98 105 H 101 H Respiratory Rate 24 H 22 H 23 H Blood Pressure 104/58 L 107/52 L Pulse Oximetry 100 100 Oxygen Delivery Fraction of Inspired Oxygen 04/17/24 23:31 04/17/24 23:45 04/17/24 23:46 Temperature Pulse Rate 108 H 109 H 109 H Respiratory Rate 24 H 24 H 23 H Blood Pressure 91/63 L Pulse Oximetry 100 99 Oxygen Delivery Fraction of Inspired Oxygen 04/17/24 23:53 04/18/24 00:00 04/18/24 00:00 Temperature 37.9 C H Pulse Rate 105 H 102 H Respiratory Rate 24 H Blood Pressure 106/59 L Pulse Oximetry 99 100 Oxygen Delivery Mechanical Ventilation Fraction of Inspired Oxygen 40 40 04/18/24 00:00 04/18/24 00:00 04/18/24 00:00 Temperature Pulse Rate 102 H 102 H 102 H Respiratory Rate 24 H 23 H Blood Pressure 106/59 L Pulse Oximetry 100 Oxygen Delivery Mechanical Ventilation Fraction of Inspired Oxygen 40 04/18/24 00:00 04/18/24 00:00 04/18/24 00:00 Temperature Pulse Rate 102 H 97 108 H Respiratory Rate 23 H Blood Pressure 106/59 L 106/59 L Pulse Oximetry Oxygen Delivery Fraction of Inspired Oxygen 04/18/24 00:01 04/18/24 00:15 04/18/24 00:16 Temperature Pulse Rate 102 H 96 108 H Respiratory Rate 22 H 23 H 22 H Blood Pressure 90/60 L Pulse Oximetry 99 99 Oxygen Delivery Fraction of Inspired Oxygen 04/18/24 00:30 04/18/24 00:31 04/18/24 00:45 Temperature Pulse Rate 109 H 97 107 H Respiratory Rate 28 H 28 H 26 H Blood Pressure 101/59 L 98/59 L Pulse Oximetry Oxygen Delivery Fraction of Inspired Oxygen 04/18/24 00:46 04/18/24 00:58 04/18/24 01:00 Temperature Pulse Rate 106 H 95 99 Respiratory Rate 25 H 24 H 24 H Blood Pressure 93/60 L Pulse Oximetry Oxygen Delivery Fraction of Inspired Oxygen 04/18/24 01:01 04/18/24 01:01 04/18/24 01:15 Temperature Pulse Rate 95 103 H 100 Respiratory Rate 24 H 24 H 24 H Blood Pressure 100/61 Pulse Oximetry Oxygen Delivery Fraction of Inspired Oxygen 04/18/24 01:16 04/18/24 01:30 04/18/24 01:31 Temperature Pulse Rate 101 H 97 100 Respiratory Rate 23 H 25 H 23 H Blood Pressure 96/58 L Pulse Oximetry Oxygen Delivery Fraction of Inspired Oxygen 04/18/24 01:45 04/18/24 01:46 04/18/24 02:00 Temperature Pulse Rate 104 H 106 H 98 Respiratory Rate 20 24 H Blood Pressure 92/64 L Pulse Oximetry Oxygen Delivery Fraction of Inspired Oxygen 04/18/24 02:00 04/18/24 02:00 04/18/24 02:00 Temperature Pulse Rate 98 98 98 Respiratory Rate 23 H Blood Pressure 94/64 L 94/64 L Pulse Oximetry Oxygen Delivery Fraction of Inspired Oxygen 04/18/24 02:00 04/18/24 02:01 04/18/24 02:15 Temperature Pulse Rate 95 102 H 102 H Respiratory Rate 23 H 24 H 24 H Blood Pressure 94/64 L 98/69 L Pulse Oximetry Oxygen Delivery Fraction of Inspired Oxygen 04/18/24 02:16 04/18/24 02:30 04/18/24 02:31 Temperature Pulse Rate 102 H 89 101 H Respiratory Rate 23 H 24 H 18 Blood Pressure 93/62 L Pulse Oximetry Oxygen Delivery Fraction of Inspired Oxygen 04/18/24 02:45 04/18/24 02:46 04/18/24 03:00 Temperature Pulse Rate 109 H 106 H 97 Respiratory Rate 21 H 22 H 20 Blood Pressure 95/52 L 84/61 L Pulse Oximetry Oxygen Delivery Fraction of Inspired Oxygen 04/18/24 03:01 04/18/24 03:04 04/18/24 03:10 Temperature Pulse Rate 88 102 H 98 Respiratory Rate 24 H 23 H Blood Pressure 84/63 L Pulse Oximetry 100 Oxygen Delivery Mechanical Ventilation Fraction of Inspired Oxygen 40 04/18/24 03:15 04/18/24 03:15 04/18/24 03:16 Temperature Pulse Rate 95 98 87 Respiratory Rate 24 H 25 H 25 H Blood Pressure 94/57 L Pulse Oximetry 100 Oxygen Delivery Fraction of Inspired Oxygen 04/18/24 03:36 04/18/24 04:00 04/18/24 04:00 Temperature Pulse Rate 108 H 102 H Respiratory Rate 22 H Blood Pressure 101/52 L 88/59 L Pulse Oximetry 100 Oxygen Delivery Fraction of Inspired Oxygen 40 04/18/24 04:00 04/18/24 04:00 04/18/24 04:00 Temperature Pulse Rate 98 107 H 98 Respiratory Rate 23 H Blood Pressure 88/59 L Pulse Oximetry 100 Oxygen Delivery Mechanical Ventilation Fraction of Inspired Oxygen 40 04/18/24 04:02 04/18/24 04:23 04/18/24 04:48 Temperature Pulse Rate 108 H 91 91 Respiratory Rate 28 H 28 H Blood Pressure 101/52 L Pulse Oximetry Oxygen Delivery Fraction of Inspired Oxygen 04/18/24 05:17 04/18/24 06:00 04/18/24 06:00 Temperature 37.8 C H Pulse Rate 94 95 95 Respiratory Rate 28 H Blood Pressure 95/63 L Pulse Oximetry 100 100 Oxygen Delivery Mechanical Ventilation Fraction of Inspired Oxygen 40 04/18/24 06:00 04/18/24 06:00 04/18/24 06:00 Temperature Pulse Rate 95 95 95 Respiratory Rate 28 H Blood Pressure 95/63 L 95/63 L Pulse Oximetry Oxygen Delivery Fraction of Inspired Oxygen 04/18/24 06:52 04/18/24 07:28 04/18/24 07:28 Temperature Pulse Rate 96 96 Respiratory Rate Blood Pressure 104/58 L 104/58 L Pulse Oximetry Oxygen Delivery Mechanical Ventilation Fraction of Inspired Oxygen 40 04/18/24 07:28 04/18/24 07:28 04/18/24 07:47 Temperature Pulse Rate 100 100 96 Respiratory Rate 30 H 30 H 28 H Blood Pressure Pulse Oximetry Oxygen Delivery Fraction of Inspired Oxygen 04/18/24 07:50 04/18/24 07:57 04/18/24 08:00 Temperature 37.7 C H Pulse Rate 84 93 93 Respiratory Rate 30 H 27 H Blood Pressure 108/52 L Pulse Oximetry 100 Oxygen Delivery Mechanical Ventilation Fraction of Inspired Oxygen 40 04/18/24 08:44 04/18/24 10:00 04/18/24 10:03 Temperature 37.7 C H Pulse Rate 115 H 96 96 Respiratory Rate 28 H 26 H Blood Pressure 96/68 L 96/68 L Pulse Oximetry 100 Oxygen Delivery Fraction of Inspired Oxygen 04/18/24 10:03 Temperature Pulse Rate 94 Respiratory Rate Blood Pressure 96/68 L Pulse Oximetry Oxygen Delivery Fraction of Inspired Oxygen Intake/Output Intake/Output: Intake & Output 04/15/24 04/16/24 04/17/24 04/18/24 23:59 23:59 23:59 23:59 Intake Total 2500 3110.7 1895.1 1300.7 Output Total 2648 1100 600 Balance 2500 462.7 795.1 700.7 Meds/Results Medications: Active Medications Generic Name Dose Route Start Last Admin Trade Name Freq PRN Reason Stop Dose Admin Acetaminophen 650 mg 04/17/24 17:11 04/17/24 17:19 Acetaminophen 325 Mg Tablet FEED TUBE 650 mg Q6H PRN Administration Mild Pain (1-3) or Fever Acyclovir 400 mg 04/16/24 09:00 04/18/24 08:13 Acyclovir 400 Mg Tablet PO 400 mg BID KAVON Administration Albuterol/Ipratropium 3 ml 04/18/24 08:24 Ipratropium 0.5 Mg/Albuterol Sulfate 2.5 Mg Ampul.Neb 3 Ml NEBULIZE Q6HRT PRN Wheezing Dextrose 12.5 gm 04/17/24 12:00 Dextrose 50% 25 Gm/50 Ml Syringe IV PUSH PRN PRN Hypoglycemia Protocol Glucagon 1 mg 04/17/24 12:00 Glucagon For Inj 1 Mg Vial IM PRN PRN Hypoglycemia Protocol Glucose 15 gm 04/17/24 12:00 Glucose Oral Gel 15 Gm Of Glucse In 37.5 Gm Tube PO PRN PRN Hypoglycemia Protocol Cefepime HCl 2 gm in 50 mls @ 100 mls/hr 04/16/24 08:00 04/18/24 08:13 Maxipime 2 Gm/Ns 50 Ml IVPB 100 mls/hr Q8H KAVON Administration Doxycycline Hyclate 100 mg in 100 mls @ 100 mls/hr 04/16/24 11:30 04/18/24 08:12 Vibramycin 100 Mg/Ns 100 Ml IVPB 100 mls/hr Q12HR KAVON Administration Amiodarone HCl/Dextrose 360 mg in 200 mls @ 33.333 mls/hr 04/17/24 02:57 04/18/24 10:03 Nexterone 360 Mg/D5w 200 Ml IV CONT 1 mg/min .Q6H KAVON 33.33 mls/hr Administration 1 MG/MIN Propofol 100 mls @ 29.73 mls/hr 04/17/24 09:15 04/18/24 07:28 Diprivan IV CONT 50 mcg/kg/min .Q3H22M KAVON 29.73 mls/hr Administration Protocol 50 MCG/KG/MIN Norepinephrine Bitartrate 8 mg in 250 mls @ 15 mls/hr 04/17/24 12:00 04/18/24 07:28 Levophed 8 Mg/D5w 250 Ml IV CONT 8 mcg/min .[id number] KAVON 15 mls/hr Administration Protocol 8 MCG/MIN Dextrose 1,000 mls @ 100 mls/hr 04/17/24 12:00 Dextrose 5% 1,000 Ml IVPB PRN PRN Hypoglycemia Protocol Vancomycin HCl 1,500 mg in 500 mls @ 250 mls/hr 04/17/24 16:00 04/18/24 04:02 Vancomycin 1,500 Mg/Ns 500 Ml IVPB 250 mls/hr Q12H KAVON Administration Fentanyl Citrate 2,500 mcg in 250 mls @ 2.5 mls/hr 04/18/24 08:25 04/18/24 08:44 Fentanyl 2,500 Mcg/Ns 250 Ml IV CONT 25 mcg/hr .Q72H KAVON 2.5 mls/hr Administration Protocol 25 MCG/HR Insulin Aspart 2 - 5 units 04/17/24 18:00 04/18/24 06:33 Insulin Aspart (*Bkc) 100 Units/Ml SUB-Q Not Given Q6HR KAVON Protocol Levothyroxine Sodium 75 mcg 04/17/24 06:30 04/18/24 05:58 Levothyroxine Sodium 75 Mcg Tablet PO 75 mcg DAILY@0630 KAVON Administration Metoprolol Tartrate 5 mg 04/17/24 10:27 Metoprolol Tartrate Inj 5 Mg/5 Ml Vial IV PUSH Q6H PRN Tachyarrhythmias Midazolam HCl 2 mg 04/18/24 08:23 Midazolam Hcl (*Crx) 2 Mg/2 Ml Vial IV PUSH Q5M PRN ventilator asynchrony Multi-Ingred Cream/Lotion/Oil/Oint 1 applic 04/17/24 09:00 04/18/24 08:19 Mineral Oil/White Petrolatum Ointment EACH EYE 1 applic Q12HR KAVON Administration Pantoprazole Sodium 40 mg 04/16/24 21:00 04/18/24 08:13 Pantoprazole Sodium Iv 40 Mg Vial IV PUSH 40 mg Q12H KAVON Administration Sodium Chloride 10 ml 04/17/24 14:00 04/18/24 05:58 Central Line Flush IV PUSH 10 ml Q8HR KAVON Administration Sodium Chloride 10 ml 04/17/24 14:00 04/18/24 05:58 Central Line Flush IV PUSH 10 ml Q8HR KAVON Administration Sodium Chloride 10 ml 04/17/24 07:18 Central Line Flush IV PUSH PRN PRN before/after int. infusion Sodium Chloride 20 ml 04/17/24 07:18 Central Line Flush IV PUSH PRN PRN after blood draws Radiology Results: ITS Impressions Chest X-Ray 04/18/24 07:07 Impression: Small left pleural effusion with central congestive change and probable mild pulmonary edema. Support tubes, as above. Labs Labs: Laboratory Results - last 24 hr 04/17/24 04/17/24 04/17/24 05:14 10:59 11:42 WBC RBC Hgb Hct MCV MCH MCHC RDW Plt Count MPV Immature Gran % (Auto) Neut % (Auto) Lymph % (Auto) [place] % (Auto) Eos % (Auto) Baso % (Auto) Lymph # (Auto) [place] # (Auto) Eos # (Auto) Baso # (Auto) Abs Immat Gran (auto) Absolute Neuts (auto) Absolute Nucleated RBC Nucleated RBC % Platelet Estimate % Immature Plt Fraction Hypochromasia Anisocytosis Schistocytes Puncture Site Left radial ABG pH 7.477 H ABG pCO2 27.9 L ABG pO2 226.9 H ABG PO2/FiO2 Ratio 2.27 ABG HCO3 20.2 L ABG O2 Saturation 99.6 ABG O2 Content 12.0 L ABG Base Excess -2.8 A-a Gradient 458.2 Oxyhemoglobin 98.8 Carboxyhemoglobin 0.5 Methemoglobin 0.2 Reduced Hemoglobin 0.5 Total Hemoglobin 8.2 L O2 Delivery Device Ventilator O2 Liters/Min 0.0 Minute Volume Not Reportable Vent Rate 24 Vent Mode Cmv FiO2 100 Tidal Volume 450 PEEP 5 Peak Inspir Pressure Not Reportable Pressure Support 0 Sodium Potassium Chloride Carbon Dioxide Anion Gap BUN Creatinine Estim Creat Clear Calc Estimated GFR Glucose POC Capillary Glucose 117 H Lactic Acid Calcium Phosphorus Magnesium Total Bilirubin AST ALT Alkaline Phosphatase NT-Pro-B Natriuret Pep Total Protein Albumin Triglycerides 126 Vancomycin Trough 04/17/24 04/17/24 04/17/24 13:19 13:20 17:22 WBC RBC Hgb Hct MCV MCH MCHC RDW Plt Count MPV Immature Gran % (Auto) Neut % (Auto) Lymph % (Auto) [place] % (Auto) Eos % (Auto) Baso % (Auto) Lymph # (Auto) [place] # (Auto) Eos # (Auto) Baso # (Auto) Abs Immat Gran (auto) Absolute Neuts (auto) Absolute Nucleated RBC Nucleated RBC % Platelet Estimate % Immature Plt Fraction Hypochromasia Anisocytosis Schistocytes Puncture Site ABG pH ABG pCO2 ABG pO2 ABG PO2/FiO2 Ratio ABG HCO3 ABG O2 Saturation ABG O2 Content ABG Base Excess A-a Gradient Oxyhemoglobin Carboxyhemoglobin Methemoglobin Reduced Hemoglobin Total Hemoglobin O2 Delivery Device O2 Liters/Min Minute Volume Vent Rate Vent Mode FiO2 Tidal Volume PEEP Peak Inspir Pressure Pressure Support Sodium Potassium Chloride Carbon Dioxide Anion Gap BUN Creatinine Estim Creat Clear Calc Estimated GFR Glucose POC Capillary Glucose 104 Lactic Acid 3.1 H Calcium Phosphorus Magnesium Total Bilirubin AST ALT Alkaline Phosphatase NT-Pro-B Natriuret Pep Total Protein Albumin Triglycerides Vancomycin Trough 14.6 04/18/24 04/18/24 04/18/24 00:21 05:45 05:46 WBC 2.0 L RBC 2.51 L Hgb 7.3 L Hct 21.8 L MCV 86.9 MCH 29.1 MCHC 33.5 RDW 17.9 H Plt Count 43 L MPV 11.5 H Immature Gran % (Auto) 6.6 H Neut % (Auto) 50.8 Lymph % (Auto) 34.5 [place] % (Auto) 6.6 Eos % (Auto) 0.0 Baso % (Auto) 1.5 H Lymph # (Auto) 0.68 L [place] # (Auto) 0.1 Eos # (Auto) 0.0 Baso # (Auto) 0.0 Abs Immat Gran (auto) 0.13 H Absolute Neuts (auto) 1.0 L Absolute Nucleated RBC 0.000 Nucleated RBC % 0.0 Platelet Estimate Decreased % Immature Plt Fraction 5.0 Hypochromasia 1+ Anisocytosis 1+ Schistocytes None seen Puncture Site Right radial ABG pH 7.465 H ABG pCO2 30.0 L ABG pO2 110.9 H ABG PO2/FiO2 Ratio 2.77 ABG HCO3 21.1 L ABG O2 Saturation 98.4 ABG O2 Content 7.5 L ABG Base Excess -2.5 A-a Gradient 139.8 Oxyhemoglobin 97.0 Carboxyhemoglobin 1.9 Methemoglobin 0.4 Reduced Hemoglobin 0.7 Total Hemoglobin 5.3 L* O2 Delivery Device Ventilator O2 Liters/Min Not Reportable Minute Volume Not Reportable Vent Rate 20 Vent Mode Cmv FiO2 40 Tidal Volume 450 PEEP 5 Peak Inspir Pressure Not Reportable Pressure Support Not Reportable Sodium 132 L Potassium 3.6 Chloride 105 Carbon Dioxide 21 L Anion Gap 6 BUN 17 Creatinine 0.60 L Estim Creat Clear Calc 123 Estimated GFR > 60 Glucose 114 H POC Capillary Glucose 119 H Lactic Acid 1.8 Calcium 7.7 L Phosphorus 3.5 Magnesium 2.1 Total Bilirubin 0.9 AST 17 ALT 12 Alkaline Phosphatase 68 NT-Pro-B Natriuret Pep 7180 H Total Protein 6.0 L Albumin 2.3 L Triglycerides Vancomycin Trough Quality VTE Prophylaxis VTE prophylaxis: mechanical ordered
[2024-04-18] MEDS: LIDOCAINE 1% PF INJ 5 ML VIAL INFILTRATE (11:00)
--- NOTE | 2024-04-18 11:27 | PCNFU ---
Nutrition Follow-Up Complete: Increased protein energy needs related to sepsis, mechanical ventilation as evidenced by need for full tube feeding Goal: Meet estimated protein energy needs Patient is progressing towards goal. We will continue current goal. Pt current nutrition is Vital AF 1.2 at 20 ml/hr Nutrition recommendation: goal rate 40 ml/hr at this time. Last recorded weight is 103 kg, up from 99.1 kg on admit. Bowel Motility: +BM reported 04/18 Labs Reviewed: Glu 114, Cr 0.6, Alb 2.3, NA 132 Meds Noted: Propofol at 45 mcgs=26.76 ml/hr, Fentanyl, Cefepime, Vancomycin, NovoLog. Skin: WNL Additional Notes: Patient remains on a mechanical vent and tube feedings of Vital AF 1.2 at 20 ml/hr plans to advance tube feedings to 40 ml/hr. Total nutrition with propofol infusion: 2026 kcal/83 gm protein/892 ml water. Flush 30 ml q 4 hours. Agree with diet orders at this time. Monitoring diet orders, labs, MAP, medication, weights, plan of care Following in rounds, Follow up Wednesday and Wednesday
[2024-04-18 11:56] LABS: Glucose Point of Care 116 mg/dl (65-105)
[2024-04-18] MEDS: PROPOFOL IV EMULSION 100 ML 26.76 MG IV CONT (14:24)
[2024-04-18] MEDS: PROPOFOL IV EMULSION 100 ML 20.81 MG IV CONT (18:24)
[2024-04-18 18:37] LABS: Glucose Point of Care 111 mg/dl (65-105)
--- NOTE | 2024-04-18 18:56 | WPDONCCN ---
Assessment and Plan Assessment and plan (1) MDS (myelodysplastic syndrome): Code(s): D46.9 - Myelodysplastic syndrome, unspecified Status: Acute Plan Myelodysplastic syndrome with TP53 mutation status post bone marrow aspiration and biopsy done on February 17, 2024. Bone marrow biopsy showed blast count of 7-15%. 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 Patient was referred to oncologist at [facility] for bone marrow transplant consideration but since has been admitted to the hospital. Given his blood counts and underlying diagnosis I would recommend supportive and comfort care only. Chemotherapy response status poor in this particular subset of MDS. I am not sure that patient will be able to tolerate any of chemotherapy. HPI Data of Consult Date/Time: 04/18/24 18:56 Requesting Physician: Homa Gaviria MD Primary Care Provider: Yaya Britt MD Consult Narrative Narrative: Taiwo Palacios Sr. is a 63 year old male with diagnosis of high-grade myelodysplastic syndrome/AML with TP53 mutation status post bone marrow biopsy done on February 17, 2024. Patient was referred to oncologist at [facility] for TP 53 mutation MDS but has not started any therapy at. Patient also has a history of congestive heart failure, rheumatoid arthritis, atrial fibrillation and hypothyroidism came into the hospital with generalized weakness. Currently he is intubated. His labs showed profound pancytopenia. His white blood cell count was 1.1 with hemoglobin [place] 7[place]4 [place] [address]. He is intubated and sedated. Review of Systems Review of Systems: Patient is intubated and sedated. [facility] Past Medical History Medical History Anemia Chronic pain syndrome Related to RA. Heart failure with reduced ejection fraction echo in 06/2023 showed dilated cardiomyopathy with an EF of 30 to 35% Hypothyroidism Immunocompromised state due to drug therapy Iron deficiency Pancytopenia Paroxysmal atrial fibrillation Rheumatoid arthritis Surgical History Surgical History History of appendectomy Family History Family History Father Family history of malignant neoplasm Family history of diabetes mellitus in first degree relative Colon cancer Grandparent Family history of coronary artery disease Mother Acute myocardial infarction History of blood clots Grandparent Acute myocardial infarction Mother No problems noted. Sibling History of blood clots Sibling History of blood clots Sibling History of blood clots Social History Social History Social History: Surrogate medical decision maker: Isaura Palacios, spouse. Code status: Full code. Smoking packs per day: 1 Smoking cigarettes per day: 20.0 Years smoked: 54 Smoking pack-years: 54.00 Smoking status: Former smoker Tobacco type: cigarettes Second hand tobacco smoke exposure: Yes Smoking end date: 03/10/16 Alcohol intake: never Substance use: never Substance use type: does not use Do You Feel Safe in your Home?: Yes Lack of Transportation: No Lack of Food: Never True Current Housing: I Have Housing Concerned About Future Housing: No Difficulty Paying Gas/Electric Bills: No Difficulty Paying for Meds: No Currently Unemployed: No Education: High School Diploma/GED Difficulty w/ Childcare or Family Care: No Living arrangements: with family Additional living arrangements comments: Lives with spouse and family in [place]. 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 Spiritual care concerns: No Meds Home Medications and Allergies Home Medications ?Medication ?Instructions ?Recorded ?Confirmed ?Type empagliflozin 10 mg tablet 10 mg PO DAILY #30 tabs 07/03/23 04/16/24 Rx metoprolol succinate 50 mg 50 mg PO QAM #30 tabs 07/03/23 04/16/24 Rx tablet,extended release 24 hr sacubitril 24 mg-valsartan 26 mg 1 tab PO Q12HR #60 tabs 07/03/23 04/16/24 Rx tablet (Entresto) spironolactone 25 mg tablet 25 mg PO QAM #30 tabs 07/03/23 04/16/24 Rx ascorbic acid (vitamin C) 1,000 mg 1 g PO DAILY 12/29/23 04/16/24 History capsule cholecalciferol (vitamin D3) 25 400 unit PO DAILY 12/29/23 04/16/24 History mcg (1,000 unit) capsule ferrous sulfate 325 mg (65 mg 325 mg PO BID 02/17/24 04/16/24 History iron) tablet,delayed release hydrocodone 7.5 mg-acetaminophen 1 tablet PO Q6H PRN Pain #10 tabs 02/24/24 04/16/24 Rx 325 mg tablet levothyroxine 75 mcg capsule 75 mcg PO DAILY 30 days #30 caps 02/24/24 04/16/24 Rx albuterol 90 mcg-budesonide 80 2 inh inhalation ONCE #5.9 grams 03/01/24 04/16/24 Rx mcg/actuation HFA aerosol inhaler (Airsupra) fluoxetine 20 mg capsule 20 mg PO DAILY #30 caps 03/01/24 04/16/24 Rx acyclovir 400 mg tablet 400 mg PO BID 03/20/24 04/16/24 History trazodone 50 mg tablet 50 mg PO QHS #30 tabs 03/21/24 04/16/24 Rx alprazolam 0.5 mg tablet 0.5 mg PO QHS PRN Anxiety #30 tabs 04/06/24 04/16/24 Rx Allergies Allergy/AdvReac Type Severity Reaction Status Date / Time heparin AdvReac Unknown Other Verified 04/10/24 12:01 Vital Signs Vital Signs - 24 hr 04/17/24 20:00 04/17/24 20:00 04/17/24 20:00 Temperature Pulse Rate 103 H 103 H 103 H Respiratory Rate 25 H Blood Pressure 101/53 L 101/53 L Pulse Oximetry Oxygen Delivery Fraction of Inspired Oxygen 04/17/24 20:00 04/17/24 20:00 04/17/24 20:00 Temperature 38.0 C H Pulse Rate 103 H 104 H Respiratory Rate 25 H 25 H Blood Pressure 101/53 L Pulse Oximetry 100 100 Oxygen Delivery Mechanical Ventilation Fraction of Inspired Oxygen 40 40 04/17/24 20:00 04/17/24 20:39 04/17/24 20:43 Temperature Pulse Rate 108 H 104 H 113 H Respiratory Rate 25 H Blood Pressure Pulse Oximetry 100 Oxygen Delivery Mechanical Ventilation Fraction of Inspired Oxygen 40 04/17/24 20:52 04/17/24 21:16 04/17/24 21:30 Temperature Pulse Rate 112 H 110 H 121 H Respiratory Rate 26 H 24 H 30 H Blood Pressure 109/69 Pulse Oximetry Oxygen Delivery Fraction of Inspired Oxygen 04/17/24 21:31 04/17/24 21:34 04/17/24 21:34 Temperature Pulse Rate 112 H 116 H 116 H Respiratory Rate 34 H 32 H 32 H Blood Pressure Pulse Oximetry Oxygen Delivery Fraction of Inspired Oxygen 04/17/24 21:36 04/17/24 21:36 04/17/24 21:45 Temperature Pulse Rate 103 H 103 H 101 H Respiratory Rate 29 H Blood Pressure 109/69 109/69 105/59 L Pulse Oximetry Oxygen Delivery Fraction of Inspired Oxygen 04/17/24 21:46 04/17/24 21:54 04/17/24 22:00 Temperature Pulse Rate 113 H 109 H 107 H Respiratory Rate 29 H 32 H Blood Pressure 106/66 Pulse Oximetry Oxygen Delivery Fraction of Inspired Oxygen 04/17/24 22:00 04/17/24 22:00 04/17/24 22:00 Temperature Pulse Rate 112 H 105 H 110 H Respiratory Rate 25 H 31 H Blood Pressure 106/66 Pulse Oximetry 99 Oxygen Delivery Fraction of Inspired Oxygen 04/17/24 22:00 04/17/24 22:01 04/17/24 22:15 Temperature Pulse Rate 115 H 112 H 100 Respiratory Rate 29 H 27 H 24 H Blood Pressure 106/66 88/58 L Pulse Oximetry Oxygen Delivery Fraction of Inspired Oxygen 04/17/24 22:16 04/17/24 22:24 04/17/24 22:30 Temperature Pulse Rate 105 H 103 H 107 H Respiratory Rate 24 H Blood Pressure 88/58 L 83/61 L Pulse Oximetry Oxygen Delivery Fraction of Inspired Oxygen 04/17/24 22:30 04/17/24 22:31 04/17/24 22:45 Temperature Pulse Rate 123 H 106 H 71 Respiratory Rate 25 H 27 H Blood Pressure 83/61 L 99/63 L Pulse Oximetry Oxygen Delivery Fraction of Inspired Oxygen 04/17/24 22:45 04/17/24 22:46 04/17/24 23:00 Temperature Pulse Rate 104 H 114 H 104 H Respiratory Rate 25 H 24 H Blood Pressure 99/63 L 92/64 L Pulse Oximetry 100 Oxygen Delivery Fraction of Inspired Oxygen 04/17/24 23:00 04/17/24 23:01 04/17/24 23:15 Temperature Pulse Rate 106 H 102 H 98 Respiratory Rate 24 H 23 H 24 H Blood Pressure 92/64 L 104/58 L Pulse Oximetry 100 Oxygen Delivery Fraction of Inspired Oxygen 04/17/24 23:16 04/17/24 23:30 04/17/24 23:31 Temperature Pulse Rate 105 H 101 H 108 H Respiratory Rate 22 H 23 H 24 H Blood Pressure 107/52 L Pulse Oximetry 100 Oxygen Delivery Fraction of Inspired Oxygen 04/17/24 23:45 04/17/24 23:46 04/17/24 23:53 Temperature Pulse Rate 109 H 109 H 105 H Respiratory Rate 24 H 23 H Blood Pressure 91/63 L Pulse Oximetry 100 99 99 Oxygen Delivery Mechanical Ventilation Fraction of Inspired Oxygen 40 04/18/24 00:00 04/18/24 00:00 04/18/24 00:00 Temperature 37.9 C H Pulse Rate 102 H 102 H Respiratory Rate 24 H 24 H Blood Pressure 106/59 L Pulse Oximetry 100 100 Oxygen Delivery Mechanical Ventilation Fraction of Inspired Oxygen 40 40 04/18/24 00:00 04/18/24 00:00 04/18/24 00:00 Temperature Pulse Rate 102 H 102 H 102 H Respiratory Rate 23 H Blood Pressure 106/59 L 106/59 L Pulse Oximetry Oxygen Delivery Fraction of Inspired Oxygen 04/18/24 00:00 04/18/24 00:00 04/18/24 00:01 Temperature Pulse Rate 97 108 H 102 H Respiratory Rate 23 H 22 H Blood Pressure 106/59 L Pulse Oximetry Oxygen Delivery Fraction of Inspired Oxygen 04/18/24 00:15 04/18/24 00:16 04/18/24 00:30 Temperature Pulse Rate 96 108 H 109 H Respiratory Rate 23 H 22 H 28 H Blood Pressure 90/60 L 101/59 L Pulse Oximetry 99 99 Oxygen Delivery Fraction of Inspired Oxygen 04/18/24 00:31 04/18/24 00:45 04/18/24 00:46 Temperature Pulse Rate 97 107 H 106 H Respiratory Rate 28 H 26 H 25 H Blood Pressure 98/59 L Pulse Oximetry Oxygen Delivery Fraction of Inspired Oxygen 04/18/24 00:58 04/18/24 01:00 04/18/24 01:01 Temperature Pulse Rate 95 99 95 Respiratory Rate 24 H 24 H 24 H Blood Pressure 93/60 L Pulse Oximetry Oxygen Delivery Fraction of Inspired Oxygen 04/18/24 01:01 04/18/24 01:15 04/18/24 01:16 Temperature Pulse Rate 103 H 100 101 H Respiratory Rate 24 H 24 H 23 H Blood Pressure 100/61 Pulse Oximetry Oxygen Delivery Fraction of Inspired Oxygen 04/18/24 01:30 04/18/24 01:31 04/18/24 01:45 Temperature Pulse Rate 97 100 104 H Respiratory Rate 25 H 23 H 20 Blood Pressure 96/58 L 92/64 L Pulse Oximetry Oxygen Delivery Fraction of Inspired Oxygen 04/18/24 01:46 04/18/24 02:00 04/18/24 02:00 Temperature Pulse Rate 106 H 98 98 Respiratory Rate 24 H Blood Pressure 94/64 L Pulse Oximetry Oxygen Delivery Fraction of Inspired Oxygen 04/18/24 02:00 04/18/24 02:00 04/18/24 02:00 Temperature Pulse Rate 98 98 95 Respiratory Rate 23 H 23 H Blood Pressure 94/64 L 94/64 L Pulse Oximetry Oxygen Delivery Fraction of Inspired Oxygen 04/18/24 02:01 04/18/24 02:15 04/18/24 02:16 Temperature Pulse Rate 102 H 102 H 102 H Respiratory Rate 24 H 24 H 23 H Blood Pressure 98/69 L Pulse Oximetry Oxygen Delivery Fraction of Inspired Oxygen 04/18/24 02:30 04/18/24 02:31 04/18/24 02:45 Temperature Pulse Rate 89 101 H 109 H Respiratory Rate 24 H 18 21 H Blood Pressure 93/62 L 95/52 L Pulse Oximetry Oxygen Delivery Fraction of Inspired Oxygen 04/18/24 02:46 04/18/24 03:00 04/18/24 03:01 Temperature Pulse Rate 106 H 97 88 Respiratory Rate 22 H 20 24 H Blood Pressure 84/61 L Pulse Oximetry Oxygen Delivery Fraction of Inspired Oxygen 04/18/24 03:04 04/18/24 03:10 04/18/24 03:15 Temperature Pulse Rate 102 H 98 95 Respiratory Rate 23 H 24 H Blood Pressure 84/63 L Pulse Oximetry 100 Oxygen Delivery Mechanical Ventilation Fraction of Inspired Oxygen 40 04/18/24 03:15 04/18/24 03:16 04/18/24 03:36 Temperature Pulse Rate 98 87 108 H Respiratory Rate 25 H 25 H Blood Pressure 94/57 L 101/52 L Pulse Oximetry 100 Oxygen Delivery Fraction of Inspired Oxygen 04/18/24 04:00 04/18/24 04:00 04/18/24 04:00 Temperature Pulse Rate 102 H 98 Respiratory Rate 22 H 23 H Blood Pressure 88/59 L Pulse Oximetry 100 100 Oxygen Delivery Mechanical Ventilation Fraction of Inspired Oxygen 40 40 04/18/24 04:00 04/18/24 04:00 04/18/24 04:02 Temperature Pulse Rate 107 H 98 108 H Respiratory Rate Blood Pressure 88/59 L 101/52 L Pulse Oximetry Oxygen Delivery Fraction of Inspired Oxygen 04/18/24 04:23 04/18/24 04:48 04/18/24 05:17 Temperature Pulse Rate 91 91 94 Respiratory Rate 28 H 28 H Blood Pressure Pulse Oximetry 100 Oxygen Delivery Mechanical Ventilation Fraction of Inspired Oxygen 40 04/18/24 06:00 04/18/24 06:00 04/18/24 06:00 Temperature 37.8 C H Pulse Rate 95 95 95 Respiratory Rate 28 H 28 H Blood Pressure 95/63 L Pulse Oximetry 100 Oxygen Delivery Fraction of Inspired Oxygen 04/18/24 06:00 04/18/24 06:00 04/18/24 06:52 Temperature Pulse Rate 95 95 Respiratory Rate Blood Pressure 95/63 L 95/63 L Pulse Oximetry Oxygen Delivery Mechanical Ventilation Fraction of Inspired Oxygen 40 04/18/24 07:28 04/18/24 07:28 04/18/24 07:28 Temperature Pulse Rate 96 96 100 Respiratory Rate 30 H Blood Pressure 104/58 L 104/58 L Pulse Oximetry Oxygen Delivery Fraction of Inspired Oxygen 04/18/24 07:28 04/18/24 07:47 04/18/24 07:50 Temperature Pulse Rate 100 96 84 Respiratory Rate 30 H 28 H Blood Pressure Pulse Oximetry 100 Oxygen Delivery Mechanical Ventilation Fraction of Inspired Oxygen 40 04/18/24 07:57 04/18/24 08:00 04/18/24 08:00 Temperature 37.7 C H Pulse Rate 93 93 96 Respiratory Rate 30 H 27 H 28 H Blood Pressure 108/52 L Pulse Oximetry 100 Oxygen Delivery Mechanical Ventilation Fraction of Inspired Oxygen 40 04/18/24 08:00 04/18/24 08:00 04/18/24 08:00 Temperature Pulse Rate 98 96 Respiratory Rate Blood Pressure 108/52 L Pulse Oximetry Oxygen Delivery Fraction of Inspired Oxygen 40 04/18/24 08:44 04/18/24 10:00 04/18/24 10:00 Temperature 37.7 C H Pulse Rate 115 H 96 95 Respiratory Rate 28 H 26 H Blood Pressure 96/68 L Pulse Oximetry 100 Oxygen Delivery Fraction of Inspired Oxygen 04/18/24 10:00 04/18/24 10:00 04/18/24 10:03 Temperature Pulse Rate 95 105 H 96 Respiratory Rate 26 H Blood Pressure 96/68 L 96/68 L Pulse Oximetry Oxygen Delivery Fraction of Inspired Oxygen 04/18/24 10:03 04/18/24 10:48 04/18/24 10:48 Temperature Pulse Rate 94 111 H 111 H Respiratory Rate 33 H 33 H Blood Pressure 96/68 L Pulse Oximetry Oxygen Delivery Fraction of Inspired Oxygen 04/18/24 10:49 04/18/24 11:41 04/18/24 12:00 Temperature Pulse Rate 100 112 H Respiratory Rate 29 H Blood Pressure Pulse Oximetry 100 100 Oxygen Delivery Mechanical Ventilation Mechanical Ventilation Fraction of Inspired Oxygen 40 40 04/18/24 12:00 04/18/24 12:00 04/18/24 12:00 Temperature 37.7 C H Pulse Rate 108 H 97 Respiratory Rate 24 H Blood Pressure 94/69 L Pulse Oximetry 100 Oxygen Delivery Fraction of Inspired Oxygen 40 04/18/24 12:00 04/18/24 12:00 04/18/24 12:00 Temperature Pulse Rate 101 H 101 H 101 H Respiratory Rate 24 H Blood Pressure 94/69 L 94/69 L Pulse Oximetry Oxygen Delivery Fraction of Inspired Oxygen 04/18/24 12:00 04/18/24 14:00 04/18/24 14:00 Temperature 37.3 C Pulse Rate 101 H 102 H 104 H Respiratory Rate 24 H 26 H Blood Pressure 96/73 L Pulse Oximetry 100 Oxygen Delivery Fraction of Inspired Oxygen 04/18/24 14:00 04/18/24 14:00 04/18/24 14:06 Temperature Pulse Rate 96 104 H 108 H Respiratory Rate 26 H Blood Pressure 94/59 L Pulse Oximetry 99 Oxygen Delivery Mechanical Ventilation Fraction of Inspired Oxygen 40 04/18/24 14:24 04/18/24 14:24 04/18/24 15:10 Temperature Pulse Rate 102 H 102 H Respiratory Rate 27 H 27 H Blood Pressure Pulse Oximetry Oxygen Delivery Mechanical Ventilation Fraction of Inspired Oxygen 40 04/18/24 16:00 04/18/24 16:00 04/18/24 16:00 Temperature 37.2 C Pulse Rate 97 89 Respiratory Rate 19 Blood Pressure 88/57 L Pulse Oximetry 100 Oxygen Delivery Fraction of Inspired Oxygen 40 04/18/24 16:00 04/18/24 16:00 04/18/24 16:02 Temperature Pulse Rate 109 H 89 106 H Respiratory Rate 19 23 H Blood Pressure 88/57 L Pulse Oximetry Oxygen Delivery Fraction of Inspired Oxygen 04/18/24 16:04 04/18/24 16:09 04/18/24 16:52 Temperature Pulse Rate 102 H 102 H 96 Respiratory Rate Blood Pressure 88/57 L 88/57 L Pulse Oximetry 100 Oxygen Delivery Mechanical Ventilation Fraction of Inspired Oxygen 40 04/18/24 18:00 04/18/24 18:00 04/18/24 18:00 Temperature Pulse Rate 83 74 104 H Respiratory Rate 27 H Blood Pressure 90/68 L 101/62 Pulse Oximetry 100 Oxygen Delivery Fraction of Inspired Oxygen 04/18/24 18:00 04/18/24 18:24 04/18/24 18:24 Temperature Pulse Rate 117 H 101 H 101 H Respiratory Rate 25 H 25 H 25 H Blood Pressure Pulse Oximetry Oxygen Delivery Fraction of Inspired Oxygen Exam Resp: Other: Lungs are clear to auscultation Cardio: Other: Regular rate rhythm no murmurs GI: Other: Nontender nondistended bowel sounds diminished Results Labs 04/18/24 05:46 04/18/24 05:46 Labs: Short CBC 04/18/24 Range/Units 05:46 WBC 2.0 L (4.5-10.0) K/mm3 Hgb 7.3 L (14.0-18.0) g/dL Hct 21.8 L (42.0-52.0) % Plt Count 43 L (150-375) k/mm3 [facility] 04/18/24 05:46 Sodium 132 L Potassium 3.6 Chloride 105 Carbon Dioxide 21 L BUN 17 Creatinine 0.60 L Glucose 114 H Calcium 7.7 L Liver Function 04/18/24 Range/Units 05:46 Total Bilirubin 0.9 (0.2-1.3) mg/dL AST 17 (17-59) U/L ALT 12 (6-50) U/L Alkaline Phosphatase 68 (38-126) U/L Albumin 2.3 L (3.5-5.1) g/dL
[2024-04-18] MEDS: PROPOFOL IV EMULSION 100 ML 23.78 MG IV CONT (22:31)
[2024-04-18] MEDS: NOREPINEPHRINE 8 MG/D5W 250 ML 8 MG/250 ML BAG 18.75 MG IV CONT (23:40)
[2024-04-18 23:48] LABS: Glucose Point of Care 124 mg/dl (65-105)
[2024-04-19] VITALS (46 sets, daily range): BP systolic 93–130; BP diastolic 48–69; PULSE 56–108; RESP 19–32; TEMP 36.1–37.6; O2SAT 97–100
[2024-04-19] MEDS: PROPOFOL IV EMULSION 100 ML 23.78 MG IV CONT ×2 (02:43→06:03)
[2024-04-19] MEDS: AMIODARONE 360 MG/D5W 200 ML 360 MG/200 ML BAG 33.33 MG IV CONT (04:05)
[2024-04-19 05:41] LABS: Alveolar/Arterial O2 Gradient 68.5 mmHg; Carboxyhemoglobin 1.4 % THb (0-2.0); Fractional Inspired Oxygen 30 %; HCO3 ABG 19.6 mEq/l (22.0-26.0); Methemoglobin ABG 0.3 %THb (0-1.5); Oxygen Content ABG 10.7 %vol (16.0-22.0); Oxygen Saturation ABG 98.3 % (95.0-100.0); Oxyhemoglobin 96.8 % THb (90.0-100.0); PCO2 ABG 29.5 mmHg (35.0-45.0); PO2 ABG 110.7 mmHg (80.0-100.0); PO2 FiO2 Ratio Arterial Blood 3.69 %; Reduced Hemoglobin 1.5 %THb (0-5.0)
[2024-04-19 05:42] LABS: Device VENTILATOR; Modified Allen's Test Pass; Site Drawn LEFT RADIAL; Total Hemoglobin 7.7 g/dL (12.0-18.0)
[2024-04-19 05:43] LABS: Arterial Blood Gas PEEP 5 cmH2O; Arterial Blood Gas Tidal Volume 420 ml; Arterial Blood Gas Vent Mode CMV; Arterial Blood Gas Ventilator rate 18 /MIN
[2024-04-19] MEDS: LEVOTHYROXINE SODIUM 75 MCG TABLET PO (05:43)
[2024-04-19] MEDS: CENTRAL LINE FLUSH 10 ML IV PUSH ×7 (05:43→20:08)
[2024-04-19 05:55] LABS: Basophils Percent Auto 1.1 % (0.2-1.2); Eosinophils Percent Auto 0.5 % (0-4.4); Hematocrit 21.7 % (42.0-52.0); Immature Granulocyte Absolute 0.04 K/mm3 (0.00-0.031); Immature Granulocyte Percent A 2.1 % (0-0.5); Immature Platelet Fraction Pct 5.5 % (0.9-11.2); Lymphocytes Absolute Auto 0.94 K/mm3 (0.9-3.2); Lymphocytes Percent Auto 49.7 % (18.3-44.2); Mean Corpuscular HGB Conc 32.3 g/dl (32-36); Mean Corpuscular Hemoglobin 28.1 pg (26-34); Mean Corpuscular Volume 87.1 fl (80-100); Monocytes Absolute Auto 0.1 K/mm3 (0.1-0.6); Monocytes Percent Auto 5.8 % (2.6-8.5); Neutrophils Absolute Auto 0.8 K/mm3 (1.3-6.7); Neutrophils Percent Auto 40.8 % (45.5-73.1); Platelet Count Result 46 k/mm3 (150-375); Red Blood Count 2.49 M/mm3 (4.6-6.20); Red Cell Distribution Width 18.2 % (11.5-14.5)
[2024-04-19 06:03] LABS: Lactic Acid Reflex 1.5 mmol/L (0.7-2.0)
[2024-04-19 06:04] LABS: Alanine Aminotransferase 13 U/L (6-50); Albumin Level 2.3 g/dL (3.5-5.1); Alkaline Phosphatase 74 U/L (38-126); Anion Gap 2 mmol/L (4-12); Aspartate Amino Transferase 18 U/L (17-59); Bilirubin,Total 0.6 mg/dL (0.2-1.3); Blood Urea Nitrogen 15 mg/dL (9-20); Calcium 7.9 mg/dL (8.4-10.2); Carbon Dioxide 23 mmol/L (22-30); Chloride 103 mmol/L (98-107); Estimated CRCL calculation 148 ml/min; Estimated Glomerular Filt Rate > 60; Glucose 112 mg/dL (65-110); Phosphorus 3.6 mg/dL (2.5-4.5); Potassium 3.5 mmol/L (3.4-5.0); Sodium 128 mmol/L (137-145); Triglycerides 112 mg/dL (<150)
[2024-04-19 06:27] LABS: White Blood Count 1.9 K/mm3 (4.5-10.0)
[2024-04-19 06:29] LABS: Anisocytosis 1+; Hypochromasia 1+; Platelet Estimate Decreased (Adequate)
[2024-04-19 06:30] LABS: Helmet Cells 1+; Schistocytes None Seen
[2024-04-19] MEDS: CEFEPIME 2 GM/NS 50 ML 2 GM/50 ML BAG IVPB ×3 (08:11→23:29)
[2024-04-19] MEDS: ACYCLOVIR 400 MG TABLET PO ×2 (08:13→16:16)
[2024-04-19] MEDS: DOXYCYCLINE 100 MG/NS 100 ML 100 MG/100 ML BAG IVPB ×2 (08:13→20:07)
[2024-04-19] MEDS: PANTOPRAZOLE SODIUM IV 40 MG VIAL IV PUSH ×2 (08:13→20:07)
[2024-04-19] MEDS: POTASSIUM CHLORIDE 20 MEQ PACKET (FOR LIQUID) 40 MEQ FEED TUBE ×2 (08:13→12:18)
[2024-04-19] MEDS: MINERAL OIL/WHITE PETROLATUM OINTMENT 1 APPLIC EACH EYE ×2 (08:14→20:08)
[2024-04-19] MEDS: FUROSEMIDE INJ 100 MG/10 ML VIAL 80 MG IV PUSH (08:26)
--- NOTE | 2024-04-19 08:34 | PM.IMPN ---
Progress Note: A&P Assessment and Plan (1) Acute respiratory failure: Code(s): J96.00 - Acute respiratory failure, unspecified whether with hypoxia or hypercapnia Status: Acute (2) Pneumonia: Code(s): J18.9 - Pneumonia, unspecified organism Status: Acute (3) Atrial fibrillation with rapid ventricular response: Code(s): I48.91 - Unspecified atrial fibrillation Status: Acute (4) Neutropenic fever: Code(s): D70.9 - Neutropenia, unspecified; R50.81 - Fever presenting with conditions classified elsewhere Status: Acute (5) Septic shock: Code(s): A41.9 - Sepsis, unspecified organism; R65.21 - Severe sepsis with septic shock Status: Acute (6) Pancytopenia: Code(s): D61.818 - Other pancytopenia Status: Acute (7) Hypothyroidism: Code(s): E03.9 - Hypothyroidism, unspecified Status: Acute (8) Iron deficiency: Code(s): E61.1 - Iron deficiency Status: Acute (9) Cardiomyopathy: Code(s): I42.9 - Cardiomyopathy, unspecified Status: Acute Plan (1) Septic shock: Code(s): A41.9 - Sepsis, unspecified organism; R65.21 - Severe sepsis with septic shock Status: Acute Assessment and Plan: Septic shock likely related to pneumonia and neutropenic fever on cefepime, will discontinue vancomycin since MRSA screen is negative and cultures have been negative - doxycycline for atypical coverage(04/16) for 5 days Elevated procalcitonin 4.6, elevated CRP Patient is off Levophed today José open if persist no improvement Continue current antibiotics (2) Acute respiratory failure: Code(s): J96.00 - Acute respiratory failure, unspecified whether with hypoxia or hypercapnia Status: Acute Assessment and Plan: Acute respiratory failure secondary to suggestive heart failure and pneumonia ABG and chest x-ray reviewed Extubated (3) Heart failure with reduced ejection fraction: Code(s): I50.20 - Unspecified systolic (congestive) heart failure Status: Acute Assessment and Plan: HFrEF with EF of 30-35% -cardiomyopathy Hold Jardiance, metoprolol, Entresto, spironolactone at home continue Lasix IV 06/29/2023 echocardiogram Summary 1. Definity contrast administered improved wall motion interpretation. 2. Left ventricular chamber dimension is severely enlarged. 3. Left ventricular systolic function is severely globally reduced, estimated at 30-35%. 4. The left ventricular diastolic function is abnormal. 5. E/e' 13 is mildly elevated. 6. Left atrial chamber dimension is severely enlarged. 7. There is mild mitral valve regurgitation. 8. There is trace tricuspid valve regurgitation. 9. No pulmonary hypertension, estimated pulmonary arterial systolic pressure is 28 mmHg. (4) Pneumonia: Code(s): J18.9 - Pneumonia, unspecified organism Status: Acute Assessment and Plan: Chest x-ray showed bilateral pulmonary diffuse reticular opacities R > L -treatment is above (5) Paroxysmal atrial fibrillation with rapid ventricular response: Code(s): I48.0 - Paroxysmal atrial fibrillation Status: Acute Assessment and Plan: Has a history of paroxysmal AFib, was in AFib RVR in the ER, given septic shock patient was started on amiodarone bolus and infusion - 04/17: Patient was also in AFib RVR overnight and this morning, responded well to amiodarone and metoprolol Now developed sinus bradycardia. discontinue amiodarone. (6) Neutropenic fever: Code(s): D70.9 - Neutropenia, unspecified; R50.81 - Fever presenting with conditions classified elsewhere Status: Acute Assessment and Plan: Neutropenic fevers likely related to chemotherapy which was done about 3 weeks ago. 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 Tomlin, was been consulted -continue to treat underlying cause for now -monitor transfuse as needed patient was evaluated by heme Onc and recommendation is for palliative care's since patient has a disease with very poor prognosis. Rheumatoid arthritis: Code(s): M06.9 - Rheumatoid arthritis, unspecified Status: Acute Assessment and Plan: Not on immunotherapy Plan DVT prophylaxis: SCDs, no chemoprophylaxis due to thrombocytopenia, anemia Stress ulcer prophylaxis: Protonix IV q.12 hours Nutrition: Advance tube feeds Code Status: Full code Subjective Date/time seen: 04/19/24 08:34 Interval history: I saw and examined the patient in ICU. Patient was extubated, patient was still confused, patient did not have distress. Blood pressure soft, not on vasopressors. Afebrile over the night. Labs reviewed, patient has pancytopenia, no significant changes since yesterday Exam Narrative: General: Extubated, no obvious distress HEENT:? Pupils equal and reactive, sclera is clear, Neck:? Supple Respiratory:? Coarse breath sound bilaterally Cardiac:? Tachycardic, irregular irregular rhythm Abdomen:? Soft, nontender, protuberant, hypoactive bowel sounds Extremities:? Bilateral lower extremity pitting edema, palpable pedal pulses Neuro:? Still confused, unable to follow commands Skin:? Bruising noted Psych:? Flat affect Objective Data Vital Signs Vital Signs: Vital Signs - 24 hr 04/18/24 08:44 04/18/24 10:00 04/18/24 10:00 Temperature 99.8 F H Pulse Rate 115 H 96 95 Respiratory Rate 28 H 26 H Blood Pressure 96/68 L Pulse Oximetry 100 Oxygen Delivery Fraction of Inspired Oxygen 04/18/24 10:00 04/18/24 10:00 04/18/24 10:03 Temperature Pulse Rate 95 105 H 96 Respiratory Rate 26 H Blood Pressure 96/68 L 96/68 L Pulse Oximetry Oxygen Delivery Fraction of Inspired Oxygen 04/18/24 10:03 04/18/24 10:48 04/18/24 10:48 Temperature Pulse Rate 94 111 H 111 H Respiratory Rate 33 H 33 H Blood Pressure 96/68 L Pulse Oximetry Oxygen Delivery Fraction of Inspired Oxygen 04/18/24 10:49 04/18/24 11:41 04/18/24 12:00 Temperature Pulse Rate 100 112 H Respiratory Rate 29 H Blood Pressure Pulse Oximetry 100 100 Oxygen Delivery Mechanical Ventilation Mechanical Ventilation Fraction of Inspired Oxygen 40 40 04/18/24 12:00 04/18/24 12:00 04/18/24 12:00 Temperature 99.9 F H Pulse Rate 108 H 97 Respiratory Rate 24 H Blood Pressure 94/69 L Pulse Oximetry 100 Oxygen Delivery Fraction of Inspired Oxygen 40 04/18/24 12:00 04/18/24 12:00 04/18/24 12:00 Temperature Pulse Rate 101 H 101 H 101 H Respiratory Rate 24 H Blood Pressure 94/69 L 94/69 L Pulse Oximetry Oxygen Delivery Fraction of Inspired Oxygen 04/18/24 12:00 04/18/24 14:00 04/18/24 14:00 Temperature 99.2 F Pulse Rate 101 H 102 H 104 H Respiratory Rate 24 H 26 H Blood Pressure 96/73 L Pulse Oximetry 100 Oxygen Delivery Fraction of Inspired Oxygen 04/18/24 14:00 04/18/24 14:00 04/18/24 14:06 Temperature Pulse Rate 96 104 H 108 H Respiratory Rate 26 H Blood Pressure 94/59 L Pulse Oximetry 99 Oxygen Delivery Mechanical Ventilation Fraction of Inspired Oxygen 40 04/18/24 14:24 04/18/24 14:24 04/18/24 15:10 Temperature Pulse Rate 102 H 102 H Respiratory Rate 27 H 27 H Blood Pressure Pulse Oximetry Oxygen Delivery Mechanical Ventilation Fraction of Inspired Oxygen 40 04/18/24 16:00 04/18/24 16:00 04/18/24 16:00 Temperature 98.9 F Pulse Rate 97 89 Respiratory Rate 19 Blood Pressure 88/57 L Pulse Oximetry 100 Oxygen Delivery Fraction of Inspired Oxygen 40 04/18/24 16:00 04/18/24 16:00 04/18/24 16:02 Temperature Pulse Rate 109 H 89 106 H Respiratory Rate 19 23 H Blood Pressure 88/57 L Pulse Oximetry Oxygen Delivery Fraction of Inspired Oxygen 04/18/24 16:04 04/18/24 16:09 04/18/24 16:52 Temperature Pulse Rate 102 H 102 H 96 Respiratory Rate Blood Pressure 88/57 L 88/57 L Pulse Oximetry 100 Oxygen Delivery Mechanical Ventilation Fraction of Inspired Oxygen 40 04/18/24 18:00 04/18/24 18:00 04/18/24 18:00 Temperature Pulse Rate 83 74 104 H Respiratory Rate 27 H Blood Pressure 90/68 L 101/62 Pulse Oximetry 100 Oxygen Delivery Fraction of Inspired Oxygen 04/18/24 18:00 04/18/24 18:24 04/18/24 18:24 Temperature Pulse Rate 117 H 101 H 101 H Respiratory Rate 25 H 25 H 25 H Blood Pressure Pulse Oximetry Oxygen Delivery Fraction of Inspired Oxygen 04/18/24 18:59 04/18/24 19:01 04/18/24 20:00 Temperature Pulse Rate 103 H 94 94 Respiratory Rate 24 H Blood Pressure 100/58 L 118/65 Pulse Oximetry Oxygen Delivery Fraction of Inspired Oxygen 04/18/24 20:00 04/18/24 20:00 04/18/24 20:00 Temperature 99.1 F Pulse Rate 98 98 73 Respiratory Rate 22 H 16 Blood Pressure 118/65 118/65 Pulse Oximetry 100 Oxygen Delivery Fraction of Inspired Oxygen 04/18/24 20:00 04/18/24 20:00 04/18/24 20:27 Temperature Pulse Rate 73 98 94 Respiratory Rate 22 H Blood Pressure Pulse Oximetry 100 Oxygen Delivery Mechanical Ventilation Fraction of Inspired Oxygen 40 04/18/24 20:30 04/18/24 20:35 04/18/24 21:55 Temperature Pulse Rate 94 91 Respiratory Rate 22 H Blood Pressure 98/61 L Pulse Oximetry 100 Oxygen Delivery Mechanical Ventilation Fraction of Inspired Oxygen 40 40 04/18/24 21:55 04/18/24 22:00 04/18/24 22:00 Temperature 99.2 F Pulse Rate 91 94 93 Respiratory Rate 21 H Blood Pressure 98/61 L 91/59 L Pulse Oximetry 99 Oxygen Delivery Fraction of Inspired Oxygen 04/18/24 22:00 04/18/24 22:00 04/18/24 22:00 Temperature Pulse Rate 92 92 92 Respiratory Rate 21 H Blood Pressure 91/59 L 91/59 L Pulse Oximetry Oxygen Delivery Fraction of Inspired Oxygen 04/18/24 22:31 04/18/24 22:31 04/18/24 23:05 Temperature Pulse Rate 92 92 98 Respiratory Rate 21 H 21 H Blood Pressure Pulse Oximetry 99 Oxygen Delivery Mechanical Ventilation Fraction of Inspired Oxygen 30 04/18/24 23:39 04/18/24 23:40 04/18/24 23:41 Temperature Pulse Rate 73 70 70 Respiratory Rate 36 H Blood Pressure 103/69 103/69 Pulse Oximetry Oxygen Delivery Fraction of Inspired Oxygen 04/19/24 00:00 04/19/24 00:00 04/19/24 00:00 Temperature Pulse Rate 105 H 105 H 105 H Respiratory Rate 30 H Blood Pressure 114/65 114/65 Pulse Oximetry Oxygen Delivery Fraction of Inspired Oxygen 04/19/24 00:00 04/19/24 00:00 04/19/24 00:00 Temperature 99.4 F Pulse Rate 108 H 105 H 105 H Respiratory Rate 32 H 30 H 30 H Blood Pressure 114/65 Pulse Oximetry 99 99 Oxygen Delivery Mechanical Ventilation Fraction of Inspired Oxygen 40 04/19/24 00:00 04/19/24 00:00 04/19/24 00:29 Temperature Pulse Rate 108 H 103 H Respiratory Rate 24 H Blood Pressure 107/67 Pulse Oximetry 99 Oxygen Delivery Fraction of Inspired Oxygen 40 04/19/24 01:30 04/19/24 01:31 04/19/24 02:00 Temperature Pulse Rate 105 H 105 H 66 Respiratory Rate 24 H Blood Pressure 111/52 L 111/52 L Pulse Oximetry 98 Oxygen Delivery Fraction of Inspired Oxygen 04/19/24 02:00 04/19/24 02:00 04/19/24 02:00 Temperature Pulse Rate 66 71 71 Respiratory Rate 24 H 24 H Blood Pressure 103/48 L 103/48 L Pulse Oximetry 99 Oxygen Delivery Fraction of Inspired Oxygen 04/19/24 02:00 04/19/24 02:00 04/19/24 02:10 Temperature Pulse Rate 71 71 61 Respiratory Rate 24 H Blood Pressure 103/48 L Pulse Oximetry 99 Oxygen Delivery Mechanical Ventilation Fraction of Inspired Oxygen 30 04/19/24 02:43 04/19/24 02:43 04/19/24 04:00 Temperature 99.1 F Pulse Rate 64 64 101 H Respiratory Rate 20 20 22 H Blood Pressure 100/60 Pulse Oximetry 99 Oxygen Delivery Fraction of Inspired Oxygen 04/19/24 04:00 04/19/24 04:00 04/19/24 04:00 Temperature Pulse Rate 101 H 101 H Respiratory Rate 21 H 21 H Blood Pressure Pulse Oximetry Oxygen Delivery Fraction of Inspired Oxygen 30 04/19/24 04:00 04/19/24 04:00 04/19/24 04:05 Temperature Pulse Rate 90 60 101 H Respiratory Rate Blood Pressure 100/60 100/60 Pulse Oximetry Oxygen Delivery Fraction of Inspired Oxygen 04/19/24 04:05 04/19/24 04:15 04/19/24 05:23 Temperature Pulse Rate 101 H 101 H 60 Respiratory Rate 21 H Blood Pressure 100/60 Pulse Oximetry 99 99 Oxygen Delivery Mechanical Ventilation Mechanical Ventilation Fraction of Inspired Oxygen 30 30 04/19/24 06:00 04/19/24 06:00 04/19/24 06:00 Temperature Pulse Rate 61 61 61 Respiratory Rate 22 H Blood Pressure 99/53 L 99/53 L Pulse Oximetry Oxygen Delivery Fraction of Inspired Oxygen 04/19/24 06:00 04/19/24 06:00 04/19/24 06:03 Temperature Pulse Rate 61 61 62 Respiratory Rate 22 H 23 H Blood Pressure 93/57 L Pulse Oximetry 99 Oxygen Delivery Fraction of Inspired Oxygen 04/19/24 06:03 04/19/24 06:35 04/19/24 06:35 Temperature Pulse Rate 62 58 L 56 L Respiratory Rate 23 H 22 H Blood Pressure 98/50 L Pulse Oximetry Oxygen Delivery Fraction of Inspired Oxygen 04/19/24 07:20 04/19/24 08:13 Temperature Pulse Rate 58 L 61 Respiratory Rate 21 H Blood Pressure Pulse Oximetry 100 Oxygen Delivery Mechanical Ventilation Fraction of Inspired Oxygen 30 Intake/Output Intake/Output: Intake & Output 04/16/24 04/17/24 04/18/24 04/19/24 23:59 23:59 23:59 23:59 Intake Total 3110.7 1895.1 4029.8 1401.1 Output Total 2648 1100 3100 900 Balance 462.7 795.1 929.8 501.1 Meds/Results Medications: Active Medications Generic Name Dose Route Start Last Admin Trade Name Freq PRN Reason Stop Dose Admin Acetaminophen 650 mg 04/17/24 17:11 04/17/24 17:19 Acetaminophen 325 Mg Tablet FEED TUBE 650 mg Q6H PRN Administration Mild Pain (1-3) or Fever Acyclovir 400 mg 04/16/24 09:00 04/19/24 08:13 Acyclovir 400 Mg Tablet PO 400 mg BID KAVON Administration Albuterol/Ipratropium 3 ml 04/18/24 08:24 Ipratropium 0.5 Mg/Albuterol Sulfate 2.5 Mg Ampul.Neb 3 Ml NEBULIZE Q6HRT PRN Wheezing Dextrose 12.5 gm 04/17/24 12:00 Dextrose 50% 25 Gm/50 Ml Syringe IV PUSH PRN PRN Hypoglycemia Protocol Glucagon 1 mg 04/17/24 12:00 Glucagon For Inj 1 Mg Vial IM PRN PRN Hypoglycemia Protocol Glucose 15 gm 04/17/24 12:00 Glucose Oral Gel 15 Gm Of Glucse In 37.5 Gm Tube PO PRN PRN Hypoglycemia Protocol Cefepime HCl 2 gm in 50 mls @ 100 mls/hr 04/16/24 08:00 04/19/24 08:11 Maxipime 2 Gm/Ns 50 Ml IVPB 100 mls/hr Q8H KAVON Administration Doxycycline Hyclate 100 mg in 100 mls @ 100 mls/hr 04/16/24 11:30 04/19/24 08:13 Vibramycin 100 Mg/Ns 100 Ml IVPB 04/21/24 11:29 100 mls/hr Q12HR KAVON Administration Propofol 100 mls @ 20.811 mls/hr 04/17/24 09:15 04/19/24 08:13 Diprivan IV CONT 35 mcg/kg/min .Q4H49M KAVON 20.81 mls/hr Titration Protocol 35 MCG/KG/MIN Norepinephrine Bitartrate 8 mg in 250 mls @ 15 mls/hr 04/17/24 12:00 04/19/24 06:00 Levophed 8 Mg/D5w 250 Ml IV CONT 8 mcg/min .[id number] KAVON 15 mls/hr Titration Protocol 8 MCG/MIN Dextrose 1,000 mls @ 100 mls/hr 04/17/24 12:00 Dextrose 5% 1,000 Ml IVPB PRN PRN Hypoglycemia Protocol Fentanyl Citrate 2,500 mcg in 250 mls @ 5 mls/hr 04/18/24 08:25 04/19/24 06:35 Fentanyl 2,500 Mcg/Ns 250 Ml IV CONT 50 mcg/hr .Q50H KAVON 5 mls/hr Titration Protocol 50 MCG/HR Insulin Aspart 2 - 5 units 04/17/24 18:00 04/19/24 05:50 Insulin Aspart (*Bkc) 100 Units/Ml SUB-Q Not Given Q6HR [facility] Protocol Levothyroxine Sodium 75 mcg 04/17/24 06:30 04/19/24 05:43 Levothyroxine Sodium 75 Mcg Tablet PO 75 mcg DAILY@0630 KAVON Administration Metoprolol Tartrate 5 mg 04/17/24 10:27 Metoprolol Tartrate Inj 5 Mg/5 Ml Vial IV PUSH Q6H PRN Tachyarrhythmias Midazolam HCl 2 mg 04/18/24 08:23 Midazolam Hcl (*Crx) 2 Mg/2 Ml Vial IV PUSH Q5M PRN ventilator asynchrony Multi-Ingred Cream/Lotion/Oil/Oint 1 applic 04/17/24 09:00 04/19/24 08:14 Mineral Oil/White Petrolatum Ointment EACH EYE 1 applic Q12HR KAVON Administration Pantoprazole Sodium 40 mg 04/16/24 21:00 04/19/24 08:13 Pantoprazole Sodium Iv 40 Mg Vial IV PUSH 40 mg Q12H KAVON Administration Potassium Chloride 40 meq 04/19/24 08:00 04/19/24 08:13 Potassium Chloride 20 Meq Packet (For Liquid) FEED TUBE 04/19/24 12:01 40 meq Q4H KAVON Administration Sodium Chloride 10 ml 04/17/24 14:00 04/19/24 05:43 Central Line Flush IV PUSH 10 ml Q8HR KAVON Administration Sodium Chloride 10 ml 04/17/24 14:00 04/19/24 05:43 Central Line Flush IV PUSH 10 ml Q8HR KAVON Administration Sodium Chloride 10 ml 04/17/24 07:18 Central Line Flush IV PUSH PRN PRN before/after int. infusion Sodium Chloride 20 ml 04/17/24 07:18 Central Line Flush IV PUSH PRN PRN after blood draws Sodium Chloride 10 ml 04/18/24 14:00 04/19/24 05:43 Central Line Flush IV PUSH 10 ml Q8HR KAVON Administration Sodium Chloride 10 ml 04/18/24 11:52 Central Line Flush IV PUSH PRN PRN with TPN bag changes Sodium Chloride 20 ml 04/18/24 11:52 Central Line Flush IV PUSH PRN PRN after blood draws Radiology Results: ITS Impressions Chest X-Ray 04/19/24 07:12 Impression: [id number] left pleural effusion with probable left basilar atelectasis. Central congestive changes. Support tubes, as above. Labs Labs: Laboratory Results - last 24 hr 04/18/24 04/18/24 04/18/24 05:45 11:54 18:31 WBC RBC Hgb Hct MCV MCH MCHC RDW Plt Count MPV Immature Gran % (Auto) Neut % (Auto) Lymph % (Auto) [place] % (Auto) Eos % (Auto) Baso % (Auto) Lymph # (Auto) [place] # (Auto) Eos # (Auto) Baso # (Auto) Abs Immat Gran (auto) Absolute Neuts (auto) Absolute Nucleated RBC Nucleated RBC % Platelet Estimate % Immature Plt Fraction Hypochromasia Anisocytosis Helmet Cells Schistocytes Puncture Site ABG pH ABG pCO2 ABG pO2 ABG PO2/FiO2 Ratio ABG HCO3 ABG O2 Saturation ABG O2 Content ABG Base Excess A-a Gradient Oxyhemoglobin Carboxyhemoglobin Methemoglobin Reduced Hemoglobin Total Hemoglobin O2 Delivery Device O2 Liters/Min Minute Volume Vent Rate Vent Mode FiO2 Tidal Volume PEEP Peak Inspir Pressure Pressure Support Sodium Potassium Chloride Carbon Dioxide Anion Gap BUN Creatinine Estim Creat Clear Calc Estimated GFR Glucose POC Capillary Glucose 116 H 111 H Lactic Acid Calcium Phosphorus Magnesium Total Bilirubin AST ALT Alkaline Phosphatase NT-Pro-B Natriuret Pep 7180 H Total Protein Albumin Triglycerides 04/18/24 04/19/24 04/19/24 23:39 05:25 05:40 WBC 1.9 L* RBC 2.49 L Hgb 7.0 L Hct 21.7 L MCV 87.1 MCH 28.1 MCHC 32.3 RDW 18.2 H Plt Count 46 L MPV TNP Immature Gran % (Auto) 2.1 H Neut % (Auto) 40.8 L Lymph % (Auto) 49.7 H [place] % (Auto) 5.8 Eos % (Auto) 0.5 Baso % (Auto) 1.1 Lymph # (Auto) 0.94 [place] # (Auto) 0.1 Eos # (Auto) 0.0 Baso # (Auto) 0.0 Abs Immat Gran (auto) 0.04 H Absolute Neuts (auto) 0.8 L Absolute Nucleated RBC 0.000 Nucleated RBC % 0.0 Platelet Estimate Decreased % Immature Plt Fraction 5.5 Hypochromasia 1+ Anisocytosis 1+ Helmet Cells 1+ Schistocytes None seen Puncture Site Left radial ABG pH 7.440 ABG pCO2 29.5 L ABG pO2 110.7 H ABG PO2/FiO2 Ratio 3.69 ABG HCO3 19.6 L ABG O2 Saturation 98.3 ABG O2 Content 10.7 L ABG Base Excess -4.0 A-a Gradient 68.5 Oxyhemoglobin 96.8 Carboxyhemoglobin 1.4 Methemoglobin 0.3 Reduced Hemoglobin 1.5 Total Hemoglobin 7.7 L* O2 Delivery Device Ventilator O2 Liters/Min Not Reportable Minute Volume Not Reportable Vent Rate 18 Vent Mode Cmv FiO2 30 Tidal Volume 420 PEEP 5 Peak Inspir Pressure Not Reportable Pressure Support Not Reportable Sodium 128 L Potassium 3.5 Chloride 103 Carbon Dioxide 23 Anion Gap 2 L BUN 15 Creatinine 0.50 L Estim Creat Clear Calc 148 Estimated GFR > 60 Glucose 112 H POC Capillary Glucose 124 H Lactic Acid 1.5 Calcium 7.9 L Phosphorus 3.6 Magnesium 2.0 Total Bilirubin 0.6 AST 18 ALT 13 Alkaline Phosphatase 74 NT-Pro-B Natriuret Pep Total Protein 6.0 L Albumin 2.3 L Triglycerides 112
--- NOTE | 2024-04-19 09:12 | WPDINTPN ---
Progress Note: A&P Assessment and Plan (1) Septic shock: Code(s): A41.9 - Sepsis, unspecified organism; R65.21 - Severe sepsis with septic shock Status: Acute Assessment and Plan: Septic shock likely related to pneumonia and neutropenic fever -continue cefepime, will discontinue vancomycin since MRSA screen is negative and cultures have been negative - doxycycline for atypical coverage(04/16) for 5 days -WBC and neutrophil count improving -lactic acid level has normalized -procalcitonin was 4.6 and C-reactive protein was 18.1 -04/15: Preliminary Blood cultures negative x2 -continue Levophed to maintain mean arterial pressure -hold further IV fluids due to congestive heart failure (2) Acute respiratory failure: Code(s): J96.00 - Acute respiratory failure, unspecified whether with hypoxia or hypercapnia Status: Acute Assessment and Plan: Acute respiratory failure secondary to suggestive heart failure and pneumonia ABG and chest x-ray reviewed Decrease tidal volume to 380 and rate to 18 Continue Lasix IV Will try weaning trial (3) Heart failure with reduced ejection fraction: Code(s): I50.20 - Unspecified systolic (congestive) heart failure Status: Acute Assessment and Plan: HFrEF with EF of 30-35% -cardiomyopathy -On Jardiance, metoprolol, Entresto, spironolactone at home -hold all these medications due to patient in septic shock, hypotension on vasopressors -continue Lasix IV 06/29/2023 echocardiogram Summary 1. Definity contrast administered improved wall motion interpretation. 2. Left ventricular chamber dimension is severely enlarged. 3. Left ventricular systolic function is severely globally reduced, estimated at 30-35%. 4. The left ventricular diastolic function is abnormal. 5. E/e' 13 is mildly elevated. 6. Left atrial chamber dimension is severely enlarged. 7. There is mild mitral valve regurgitation. 8. There is trace tricuspid valve regurgitation. 9. No pulmonary hypertension, estimated pulmonary arterial systolic pressure is 28 mmHg. (4) Pneumonia: Code(s): J18.9 - Pneumonia, unspecified organism Status: Acute Assessment and Plan: Chest x-ray showed bilateral pulmonary diffuse reticular opacities R > L -treatment is above (5) Paroxysmal atrial fibrillation with rapid ventricular response: Code(s): I48.0 - Paroxysmal atrial fibrillation Status: Acute Assessment and Plan: Has a history of paroxysmal AFib, was in AFib RVR in the ER, given septic shock patient was started on amiodarone bolus and infusion - 04/17: Patient was also in AFib RVR overnight and this morning, responded well to amiodarone and metoprolol Now developed sinus bradycardia. Will discontinue amiodarone. (6) Neutropenic fever: Code(s): D70.9 - Neutropenia, unspecified; R50.81 - Fever presenting with conditions classified elsewhere Status: Acute Assessment and Plan: Neutropenic fevers likely related to chemotherapy which was done about 3 weeks ago. Patient has not been feeling well for about a week, complained of generalized weakness low-grade fevers -continue treatment as above -s/p one dose of filgrastim -Heme-Onc consultation -neutropenic precautions (7) Pancytopenia: Code(s): D61.818 - Other pancytopenia Status: Acute Assessment and Plan: History of pancytopenia likely related to myelodysplastic syndrome leukemia, chemotherapy -follows with Dr. Tomlin, was been consulted -continue to treat underlying cause for now -monitor transfuse as needed (8) MDS (myelodysplastic syndrome): Code(s): D46.9 - Myelodysplastic syndrome, unspecified Status: Acute Assessment and Plan: Patient with myelodysplastic syndrome with pancytopenia Patient was evaluated by heme Onc and recommendation is for palliative care's since patient has a disease with very poor prognosis. (9) Leukemia: Code(s): C95.90 - Leukemia, unspecified not having achieved remission Status: Acute Assessment and Plan: Status post chemotherapy, Heme-Onc to follow (10) Rheumatoid arthritis: Code(s): M06.9 - Rheumatoid arthritis, unspecified Status: Acute Assessment and Plan: Currently sedated. Start fentanyl for analgesia-sedation Plan DVT prophylaxis: SCDs, no chemoprophylaxis due to thrombocytopenia, anemia Stress ulcer prophylaxis: Protonix IV q.12 hours Nutrition: Advance tube feeds Code Status: Full code Critical Care Time Spent: 32 minutes Due to a high probability of clinically significant, life threatening deterioration, the patient required my highest level of preparedness to intervene emergently and I personally spent this critical care time directly and personally managing the patient. This critical care time included obtaining a history; examining the patient; pulse oximetry; ordering and review of studies; arranging urgent treatment with development of a management plan; evaluation of patient's response to treatment; frequent reassessment; and discussions with other providers. It was exclusive of separately billable procedures and treating other patients and teaching time. Please see Assessment and Plan section and the rest of the note for further information on patient assessment and treatment This dictation may have been done utilizing a voice recognition system. Attempts have been made to correct errors. However, there may be uncorrected grammatical, spelling, and recognitions errors present. Subjective Date/time seen: 04/19/24 Overnight events reviewed. Afebrile Continues to be on mechanical ventilation 30% FiO2 Continues to be on Levophed Continues to be sedated Sinus bradycardia. Amiodarone was discontinued Other Vitals acceptable Interval history: Reason for consult: Patient admitted to the ICU on 04/16/2024 with Septic shock, hypotension, neutropenic fever, pneumonia, atrial fibrillation RVR Review of Systems Review of Systems: ROS unobtainable: Yes unobtainable due to endotracheal tube, unobtainable due to medical condition and unobtainable due to mental status Exam Narrative: General: Intubated and sedated HEENT:? Pupils equal and reactive, sclera is clear, ETT in place Neck:? Supple Respiratory:? Coarse breath sounds bilaterally right greater than left, adequate air entry, no wheezing Cardiac:? Tachycardic, irregular Abdomen:? Soft, nontender, protuberant, hypoactive bowel sounds Extremities:? Bilateral lower extremity pitting edema, palpable pedal pulses Neuro:? Patient intubated and sedated, not following commands or opening his eyes at this time. He does move all his extremities spontaneously intermittently Skin:? Bruising noted Psych:? Flat affect, normal mentation Objective Data Vital Signs Vital Signs: Vital Signs - 24 hr 04/18/24 10:00 04/18/24 10:00 04/18/24 10:00 Temperature 37.7 C H Pulse Rate 96 95 95 Respiratory Rate 26 H Blood Pressure 96/68 L 96/68 L Pulse Oximetry 100 Oxygen Delivery Fraction of Inspired Oxygen 04/18/24 10:00 04/18/24 10:03 04/18/24 10:03 Temperature Pulse Rate 105 H 96 94 Respiratory Rate 26 H Blood Pressure 96/68 L 96/68 L Pulse Oximetry Oxygen Delivery Fraction of Inspired Oxygen 04/18/24 10:48 04/18/24 10:48 04/18/24 10:49 Temperature Pulse Rate 111 H 111 H 100 Respiratory Rate 33 H 33 H 29 H Blood Pressure Pulse Oximetry Oxygen Delivery Fraction of Inspired Oxygen 04/18/24 11:41 04/18/24 12:00 04/18/24 12:00 Temperature 37.7 C H Pulse Rate 112 H 108 H Respiratory Rate 24 H Blood Pressure 94/69 L Pulse Oximetry 100 100 100 Oxygen Delivery Mechanical Ventilation Mechanical Ventilation Fraction of Inspired Oxygen 40 40 04/18/24 12:00 04/18/24 12:00 04/18/24 12:00 Temperature Pulse Rate 97 101 H Respiratory Rate Blood Pressure 94/69 L Pulse Oximetry Oxygen Delivery Fraction of Inspired Oxygen 40 04/18/24 12:00 04/18/24 12:00 04/18/24 12:00 Temperature Pulse Rate 101 H 101 H 101 H Respiratory Rate 24 H 24 H Blood Pressure 94/69 L Pulse Oximetry Oxygen Delivery Fraction of Inspired Oxygen 04/18/24 14:00 04/18/24 14:00 04/18/24 14:00 Temperature 37.3 C Pulse Rate 102 H 104 H 96 Respiratory Rate 26 H Blood Pressure 96/73 L 94/59 L Pulse Oximetry 100 Oxygen Delivery Fraction of Inspired Oxygen 04/18/24 14:00 04/18/24 14:06 04/18/24 14:24 Temperature Pulse Rate 104 H 108 H 102 H Respiratory Rate 26 H 27 H Blood Pressure Pulse Oximetry 99 Oxygen Delivery Mechanical Ventilation Fraction of Inspired Oxygen 40 04/18/24 14:24 04/18/24 15:10 04/18/24 16:00 Temperature Pulse Rate 102 H Respiratory Rate 27 H Blood Pressure Pulse Oximetry Oxygen Delivery Mechanical Ventilation Fraction of Inspired Oxygen 40 40 04/18/24 16:00 04/18/24 16:00 04/18/24 16:00 Temperature 37.2 C Pulse Rate 97 89 109 H Respiratory Rate 19 Blood Pressure 88/57 L 88/57 L Pulse Oximetry 100 Oxygen Delivery Fraction of Inspired Oxygen 04/18/24 16:00 04/18/24 16:02 04/18/24 16:04 Temperature Pulse Rate 89 106 H 102 H Respiratory Rate 19 23 H Blood Pressure 88/57 L Pulse Oximetry Oxygen Delivery Fraction of Inspired Oxygen 04/18/24 16:09 04/18/24 16:52 04/18/24 18:00 Temperature Pulse Rate 102 H 96 83 Respiratory Rate Blood Pressure 88/57 L Pulse Oximetry 100 Oxygen Delivery Mechanical Ventilation Fraction of Inspired Oxygen 40 04/18/24 18:00 04/18/24 18:00 04/18/24 18:00 Temperature Pulse Rate 74 104 H 117 H Respiratory Rate 27 H 25 H Blood Pressure 90/68 L 101/62 Pulse Oximetry 100 Oxygen Delivery Fraction of Inspired Oxygen 04/18/24 18:24 04/18/24 18:24 04/18/24 18:59 Temperature Pulse Rate 101 H 101 H 103 H Respiratory Rate 25 H 25 H 24 H Blood Pressure Pulse Oximetry Oxygen Delivery Fraction of Inspired Oxygen 04/18/24 19:01 04/18/24 20:00 04/18/24 20:00 Temperature Pulse Rate 94 94 98 Respiratory Rate Blood Pressure 100/58 L 118/65 118/65 Pulse Oximetry Oxygen Delivery Fraction of Inspired Oxygen 04/18/24 20:00 04/18/24 20:00 04/18/24 20:00 Temperature 37.3 C Pulse Rate 98 73 73 Respiratory Rate 22 H 16 Blood Pressure 118/65 Pulse Oximetry 100 Oxygen Delivery Fraction of Inspired Oxygen 04/18/24 20:00 04/18/24 20:27 04/18/24 20:30 Temperature Pulse Rate 98 94 94 Respiratory Rate 22 H 22 H Blood Pressure Pulse Oximetry 100 100 Oxygen Delivery Mechanical Ventilation Mechanical Ventilation Fraction of Inspired Oxygen 40 40 04/18/24 20:35 04/18/24 21:55 04/18/24 21:55 Temperature Pulse Rate 91 91 Respiratory Rate Blood Pressure 98/61 L 98/61 L Pulse Oximetry Oxygen Delivery Fraction of Inspired Oxygen 40 04/18/24 22:00 04/18/24 22:00 04/18/24 22:00 Temperature 37.3 C Pulse Rate 94 93 92 Respiratory Rate 21 H 21 H Blood Pressure 91/59 L Pulse Oximetry 99 Oxygen Delivery Fraction of Inspired Oxygen 04/18/24 22:00 04/18/24 22:00 04/18/24 22:31 Temperature Pulse Rate 92 92 92 Respiratory Rate 21 H Blood Pressure 91/59 L 91/59 L Pulse Oximetry Oxygen Delivery Fraction of Inspired Oxygen 04/18/24 22:31 04/18/24 23:05 04/18/24 23:39 Temperature Pulse Rate 92 98 73 Respiratory Rate 21 H Blood Pressure 103/69 Pulse Oximetry 99 Oxygen Delivery Mechanical Ventilation Fraction of Inspired Oxygen 30 04/18/24 23:40 04/18/24 23:41 04/19/24 00:00 Temperature Pulse Rate 70 70 105 H Respiratory Rate 36 H 30 H Blood Pressure 103/69 Pulse Oximetry Oxygen Delivery Fraction of Inspired Oxygen 04/19/24 00:00 04/19/24 00:00 04/19/24 00:00 Temperature Pulse Rate 105 H 105 H 108 H Respiratory Rate 32 H Blood Pressure 114/65 114/65 Pulse Oximetry Oxygen Delivery Fraction of Inspired Oxygen 04/19/24 00:00 04/19/24 00:00 04/19/24 00:00 Temperature 37.4 C Pulse Rate 105 H 105 H Respiratory Rate 30 H 30 H Blood Pressure 114/65 Pulse Oximetry 99 99 Oxygen Delivery Mechanical Ventilation Fraction of Inspired Oxygen 40 40 04/19/24 00:00 04/19/24 00:29 04/19/24 01:30 Temperature Pulse Rate 108 H 103 H 105 H Respiratory Rate 24 H 24 H Blood Pressure 107/67 111/52 L Pulse Oximetry 99 98 Oxygen Delivery Fraction of Inspired Oxygen 04/19/24 01:31 04/19/24 02:00 04/19/24 02:00 Temperature Pulse Rate 105 H 66 66 Respiratory Rate 24 H Blood Pressure 111/52 L 103/48 L Pulse Oximetry 99 Oxygen Delivery Fraction of Inspired Oxygen 04/19/24 02:00 04/19/24 02:00 04/19/24 02:00 Temperature Pulse Rate 71 71 71 Respiratory Rate 24 H Blood Pressure 103/48 L 103/48 L Pulse Oximetry Oxygen Delivery Fraction of Inspired Oxygen 04/19/24 02:00 04/19/24 02:10 04/19/24 02:43 Temperature Pulse Rate 71 61 64 Respiratory Rate 24 H 20 Blood Pressure Pulse Oximetry 99 Oxygen Delivery Mechanical Ventilation Fraction of Inspired Oxygen 30 04/19/24 02:43 04/19/24 04:00 04/19/24 04:00 Temperature 37.3 C Pulse Rate 64 101 H Respiratory Rate 20 22 H Blood Pressure 100/60 Pulse Oximetry 99 Oxygen Delivery Fraction of Inspired Oxygen 30 04/19/24 04:00 04/19/24 04:00 04/19/24 04:00 Temperature Pulse Rate 101 H 101 H 90 Respiratory Rate 21 H 21 H Blood Pressure Pulse Oximetry Oxygen Delivery Fraction of Inspired Oxygen 12/18/24 04:00 04/19/24 04:05 04/19/24 04:05 Temperature Pulse Rate 60 101 H 101 H Respiratory Rate Blood Pressure 100/60 100/60 100/60 Pulse Oximetry Oxygen Delivery Fraction of Inspired Oxygen 04/19/24 04:15 04/19/24 05:23 04/19/24 06:00 Temperature Pulse Rate 101 H 60 61 Respiratory Rate 21 H Blood Pressure 99/53 L Pulse Oximetry 99 99 Oxygen Delivery Mechanical Ventilation Mechanical Ventilation Fraction of Inspired Oxygen 30 30 04/19/24 06:00 04/19/24 06:00 04/19/24 06:00 Temperature Pulse Rate 61 61 61 Respiratory Rate 22 H Blood Pressure 99/53 L Pulse Oximetry Oxygen Delivery Fraction of Inspired Oxygen 04/19/24 06:00 04/19/24 06:03 04/19/24 06:03 Temperature Pulse Rate 61 62 62 Respiratory Rate 22 H 23 H 23 H Blood Pressure 93/57 L Pulse Oximetry 99 Oxygen Delivery Fraction of Inspired Oxygen 04/19/24 06:35 04/19/24 06:35 04/19/24 07:20 Temperature Pulse Rate 58 L 56 L 58 L Respiratory Rate 22 H Blood Pressure 98/50 L Pulse Oximetry 100 Oxygen Delivery Mechanical Ventilation Fraction of Inspired Oxygen 30 04/19/24 08:00 04/19/24 08:13 Temperature 37.2 C Pulse Rate 60 61 Respiratory Rate 22 H 21 H Blood Pressure 105/51 L Pulse Oximetry 99 Oxygen Delivery Fraction of Inspired Oxygen Intake/Output Intake/Output: Intake & Output 04/16/24 04/17/24 04/18/24 04/19/24 23:59 23:59 23:59 23:59 Intake Total 3110.7 1895.1 4029.8 1401.1 Output Total 2648 1100 3100 900 Balance 462.7 795.1 929.8 501.1 Meds/Results Medications: Active Medications Generic Name Dose Route Start Last Admin Trade Name Freq PRN Reason Stop Dose Admin Acetaminophen 650 mg 04/17/24 17:11 04/17/24 17:19 Acetaminophen 325 Mg Tablet FEED TUBE 650 mg Q6H PRN Administration Mild Pain (1-3) or Fever Acyclovir 400 mg 04/16/24 09:00 04/19/24 08:13 Acyclovir 400 Mg Tablet PO 400 mg BID KAVON Administration Albuterol/Ipratropium 3 ml 04/18/24 08:24 Ipratropium 0.5 Mg/Albuterol Sulfate 2.5 Mg Ampul.Neb 3 Ml NEBULIZE Q6HRT PRN Wheezing Dextrose 12.5 gm 04/17/24 12:00 Dextrose 50% 25 Gm/50 Ml Syringe IV PUSH PRN PRN Hypoglycemia Protocol Glucagon 1 mg 04/17/24 12:00 Glucagon For Inj 1 Mg Vial IM PRN PRN Hypoglycemia Protocol Glucose 15 gm 04/17/24 12:00 Glucose Oral Gel 15 Gm Of Glucse In 37.5 Gm Tube PO PRN PRN Hypoglycemia Protocol Cefepime HCl 2 gm in 50 mls @ 100 mls/hr 04/16/24 08:00 04/19/24 08:11 Maxipime 2 Gm/Ns 50 Ml IVPB 100 mls/hr Q8H KAVON Administration Doxycycline Hyclate 100 mg in 100 mls @ 100 mls/hr 04/16/24 11:30 04/19/24 08:13 Vibramycin 100 Mg/Ns 100 Ml IVPB 04/21/24 11:29 100 mls/hr Q12HR KAVON Administration Propofol 100 mls @ 20.811 mls/hr 04/17/24 09:15 04/19/24 08:13 Diprivan IV CONT 35 mcg/kg/min .Q4H49M KAVON 20.81 mls/hr Titration Protocol 35 MCG/KG/MIN Norepinephrine Bitartrate 8 mg in 250 mls @ 15 mls/hr 04/17/24 12:00 04/19/24 06:00 Levophed 8 Mg/D5w 250 Ml IV CONT 8 mcg/min .[id number] KAVON 15 mls/hr Titration Protocol 8 MCG/MIN Dextrose 1,000 mls @ 100 mls/hr 04/17/24 12:00 Dextrose 5% 1,000 Ml IVPB PRN PRN Hypoglycemia Protocol Fentanyl Citrate 2,500 mcg in 250 mls @ 5 mls/hr 04/18/24 08:25 04/19/24 06:35 Fentanyl 2,500 Mcg/Ns 250 Ml IV CONT 50 mcg/hr .Q50H KAVON 5 mls/hr Titration Protocol 50 MCG/HR Insulin Aspart 2 - 5 units 04/17/24 18:00 04/19/24 05:50 Insulin Aspart (*Bkc) 100 Units/Ml SUB-Q Not Given Q6HR [facility] Protocol Levothyroxine Sodium 75 mcg 04/17/24 06:30 04/19/24 05:43 Levothyroxine Sodium 75 Mcg Tablet PO 75 mcg DAILY@0630 KAVON Administration Metoprolol Tartrate 5 mg 04/17/24 10:27 Metoprolol Tartrate Inj 5 Mg/5 Ml Vial IV PUSH Q6H PRN Tachyarrhythmias Midazolam HCl 2 mg 04/18/24 08:23 Midazolam Hcl (*Crx) 2 Mg/2 Ml Vial IV PUSH Q5M PRN ventilator asynchrony Multi-Ingred Cream/Lotion/Oil/Oint 1 applic 04/17/24 09:00 04/19/24 08:14 Mineral Oil/White Petrolatum Ointment EACH EYE 1 applic Q12HR KAVON Administration Pantoprazole Sodium 40 mg 04/16/24 21:00 04/19/24 08:13 Pantoprazole Sodium Iv 40 Mg Vial IV PUSH 40 mg Q12H KAVON Administration Potassium Chloride 40 meq 04/19/24 08:00 04/19/24 08:13 Potassium Chloride 20 Meq Packet (For Liquid) FEED TUBE 04/19/24 12:01 40 meq Q4H KAVON Administration Sodium Chloride 10 ml 04/17/24 14:00 04/19/24 05:43 Central Line Flush IV PUSH 10 ml Q8HR KAVON Administration Sodium Chloride 10 ml 04/17/24 14:00 04/19/24 05:43 Central Line Flush IV PUSH 10 ml Q8HR KAVON Administration Sodium Chloride 10 ml 04/17/24 07:18 Central Line Flush IV PUSH PRN PRN before/after int. infusion Sodium Chloride 20 ml 04/17/24 07:18 Central Line Flush IV PUSH PRN PRN after blood draws Sodium Chloride 10 ml 04/18/24 14:00 04/19/24 05:43 Central Line Flush IV PUSH 10 ml Q8HR KAVON Administration Sodium Chloride 10 ml 04/18/24 11:52 Central Line Flush IV PUSH PRN PRN with TPN bag changes Sodium Chloride 20 ml 04/18/24 11:52 Central Line Flush IV PUSH PRN PRN after blood draws Radiology Results: ITS Impressions Chest X-Ray 04/19/24 07:12 Impression: [id number] left pleural effusion with probable left basilar atelectasis. Central congestive changes. Support tubes, as above. Labs Labs: Laboratory Results - last 24 hr 04/18/24 04/18/24 04/18/24 11:54 18:31 23:39 WBC RBC Hgb Hct MCV MCH MCHC RDW Plt Count MPV Immature Gran % (Auto) Neut % (Auto) Lymph % (Auto) [place] % (Auto) Eos % (Auto) Baso % (Auto) Lymph # (Auto) [place] # (Auto) Eos # (Auto) Baso # (Auto) Abs Immat Gran (auto) Absolute Neuts (auto) Absolute Nucleated RBC Nucleated RBC % Platelet Estimate % Immature Plt Fraction Hypochromasia Anisocytosis Helmet Cells Schistocytes Puncture Site ABG pH ABG pCO2 ABG pO2 ABG PO2/FiO2 Ratio ABG HCO3 ABG O2 Saturation ABG O2 Content ABG Base Excess A-a Gradient Oxyhemoglobin Carboxyhemoglobin Methemoglobin Reduced Hemoglobin Total Hemoglobin O2 Delivery Device O2 Liters/Min Minute Volume Vent Rate Vent Mode FiO2 Tidal Volume PEEP Peak Inspir Pressure Pressure Support Sodium Potassium Chloride Carbon Dioxide Anion Gap BUN Creatinine Estim Creat Clear Calc Estimated GFR Glucose POC Capillary Glucose 116 H 111 H 124 H Lactic Acid Calcium Phosphorus Magnesium Total Bilirubin AST ALT Alkaline Phosphatase Total Protein Albumin Triglycerides 04/19/24 04/19/24 05:25 05:40 WBC 1.9 L* RBC 2.49 L Hgb 7.0 L Hct 21.7 L MCV 87.1 MCH 28.1 MCHC 32.3 RDW 18.2 H Plt Count 46 L MPV TNP Immature Gran % (Auto) 2.1 H Neut % (Auto) 40.8 L Lymph % (Auto) 49.7 H [place] % (Auto) 5.8 Eos % (Auto) 0.5 Baso % (Auto) 1.1 Lymph # (Auto) 0.94 [place]cock # (Auto) 0.1 Eos # (Auto) 0.0 Baso # (Auto) 0.0 Abs Immat Gran (auto) 0.04 H Absolute Neuts (auto) 0.8 L Absolute Nucleated RBC 0.000 Nucleated RBC % 0.0 Platelet Estimate Decreased % Immature Plt Fraction 5.5 Hypochromasia 1+ Anisocytosis 1+ Helmet Cells 1+ Schistocytes None seen Puncture Site Left radial ABG pH 7.440 ABG pCO2 29.5 L ABG pO2 110.7 H ABG PO2/FiO2 Ratio 3.69 ABG HCO3 19.6 L ABG O2 Saturation 98.3 ABG O2 Content 10.7 L ABG Base Excess -4.0 A-a Gradient 68.5 Oxyhemoglobin 96.8 Carboxyhemoglobin 1.4 Methemoglobin 0.3 Reduced Hemoglobin 1.5 Total Hemoglobin 7.7 L* O2 Delivery Device Ventilator O2 Liters/Min Not Reportable Minute Volume Not Reportable Vent Rate 18 Vent Mode Cmv FiO2 30 Tidal Volume 420 PEEP 5 Peak Inspir Pressure Not Reportable Pressure Support Not Reportable Sodium 128 L Potassium 3.5 Chloride 103 Carbon Dioxide 23 Anion Gap 2 L BUN 15 Creatinine 0.50 L Estim Creat Clear Calc 148 Estimated GFR > 60 Glucose 112 H POC Capillary Glucose Lactic Acid 1.5 Calcium 7.9 L Phosphorus 3.6 Magnesium 2.0 Total Bilirubin 0.6 AST 18 ALT 13 Alkaline Phosphatase 74 Total Protein 6.0 L Albumin 2.3 L Triglycerides 112 Quality VTE Prophylaxis VTE prophylaxis: mechanical ordered
[2024-04-19 11:47] LABS: Glucose Point of Care 98 mg/dl (65-105)
--- NOTE | 2024-04-19 12:09 | PCFNICU ---
ICU Rounding Note: Pt current nutrition is Vital AF 1.2 at 40 ml/hr. Nutrition recommendation: increase tube feeding to 50 ml/hr Last recorded weight is 104.5 kg, up from 99.1kg Bowel Motility: Last reported BM 04/18 Labs Reviewed: Glu 112, Na 128, Alb 2.3, Hct 21.7, Hgb 7.0 Meds Noted:Propofol 15 mcg/8.92 ml/xf=972 kcal,Fentanyl,Cefepime. Skin: WNL Additional Notes: Patient had breathing trial today-failed. Tube feedings restarted of Vital AF 1.2 at 40 ml/hr. Recommend increasing tube feeding rate to 50 ml/kr 2/2 to propofol infusion decrease. Total Nutrition: 1555 kcal/83 gm protein/892 ml water. Flush 30 ml q 4 hours. Agree with diet orders. Following daily in ICU rounds. Monitoring diet orders, labs,medication, weights, plan of care Following in rounds, Follow up Wednesday and Wednesday.
[2024-04-19] MEDS: PROPOFOL IV EMULSION 100 ML 8.92 MG IV CONT (12:18)
[2024-04-19 12:24] LABS: Hematocrit 22.9 % (42.0-52.0); Hemoglobin 7.5 g/dL (14.0-18.0); Immature Platelet Fraction Pct 5.6 % (0.9-11.2); Mean Corpuscular HGB Conc 32.8 g/dl (32-36); Mean Corpuscular Hemoglobin 28.6 pg (26-34); Mean Corpuscular Volume 87.4 fl (80-100); Mean Platelet Volume 11.2 fl (7.4-10.4); Platelet Count Result 49 k/mm3 (150-375); Red Blood Count 2.62 M/mm3 (4.6-6.20); Red Cell Distribution Width 18.2 % (11.5-14.5)
[2024-04-19 12:33] LABS: White Blood Count 1.6 K/mm3 (4.5-10.0)
--- NOTE | 2024-04-19 13:32 | P.PNCA_ITS ---
Progress Note: A&P Assessment and Plan (1) Atrial fibrillation with rapid ventricular response: Code(s): I48.91 - Unspecified atrial fibrillation Status: Acute Plan 63-year-old man with HFrEF (30-35%), paroxysmal atrial fibrillation, and myelodysplastic syndrome who presented with fevers, shortness of breath, and weakness admitted for septic shock in setting of neutropenia/pancytopenia now found to have paroxysmal atrial fibrillation with RVR Paroxysmal atrial fibrillation with RVR -Now back in sinus rhythm. Will start PO Amiodarone 400mg once daily to maintain sinus rhythm. Not able to use beta blockers at this time as he still remains on Levophed. -[id number] VASC score 1 and no strong indication for anticoagulation at this time; although he will turn 64 in a few weeks and there would be stronger indication for anticoagulation at that time. Given his thrombocytopenia, clinically his risk of bleeding exceeds his risk of embolic stroke Septic shock: -Remains on Levophed for pressor support. HFrEF -Continue with IV Lasix. Please monitor strict I/Os. -Not able to start heart failure GDMT at this time due to pressor requirement. Myelodysplastic syndrome: -Has a poor prognosis according to Oncology; supportive and comfortive care has been recommended. Recommendations and plan discussed with ICU Physician. Subjective Date/time seen: 04/19/24 13:32 Interval history: Reason for visit: Atrial fibrillation with RVR HPI: 63-year-old man with HFrEF (30-35%), paroxysmal atrial fibrillation, and myelodysplastic syndrome who presented with fevers, shortness of breath, and weakness admitted for septic shock in setting of neutropenia/pancytopenia now found to have paroxysmal atrial fibrillation with RVR. He is currently intubated and sedated with the majority of history obtained from chart review. Date of service 04/19: Remains intubated. In sinus rhythm. Review of Systems Review of Systems: ROS unobtainable: Yes unobtainable due to endotracheal tube Exam Const: General: no acute distress Other: Critically ill male, on mechanical ventilation. HENMT: Other: OETT in place Resp: Other: On mechanical ventilation Cardio: Rate: regular rate Rhythm: regular rhythm Neuro: Other: Sedated Objective Data Vital Signs Vital Signs: Vital Signs - 24 hr 04/18/24 14:00 04/18/24 14:00 04/18/24 14:00 Temperature 37.3 C Pulse Rate 102 H 104 H 96 Respiratory Rate 26 H Blood Pressure 96/73 L 94/59 L Pulse Oximetry 100 Oxygen Delivery Fraction of Inspired Oxygen 04/18/24 14:00 04/18/24 14:06 04/18/24 14:24 Temperature Pulse Rate 104 H 108 H 102 H Respiratory Rate 26 H 27 H Blood Pressure Pulse Oximetry 99 Oxygen Delivery Mechanical Ventilation Fraction of Inspired Oxygen 40 04/18/24 14:24 04/18/24 15:10 04/18/24 16:00 Temperature Pulse Rate 102 H Respiratory Rate 27 H Blood Pressure Pulse Oximetry Oxygen Delivery Mechanical Ventilation Fraction of Inspired Oxygen 40 40 04/18/24 16:00 04/18/24 16:00 04/18/24 16:00 Temperature 37.2 C Pulse Rate 97 89 109 H Respiratory Rate 19 Blood Pressure 88/57 L 88/57 L Pulse Oximetry 100 Oxygen Delivery Fraction of Inspired Oxygen 04/18/24 16:00 04/18/24 16:02 04/18/24 16:04 Temperature Pulse Rate 89 106 H 102 H Respiratory Rate 19 23 H Blood Pressure 88/57 L Pulse Oximetry Oxygen Delivery Fraction of Inspired Oxygen 04/18/24 16:09 04/18/24 16:52 04/18/24 18:00 Temperature Pulse Rate 102 H 96 83 Respiratory Rate Blood Pressure 88/57 L Pulse Oximetry 100 Oxygen Delivery Mechanical Ventilation Fraction of Inspired Oxygen 40 04/18/24 18:00 04/18/24 18:00 04/18/24 18:00 Temperature Pulse Rate 74 104 H 117 H Respiratory Rate 27 H 25 H Blood Pressure 90/68 L 101/62 Pulse Oximetry 100 Oxygen Delivery Fraction of Inspired Oxygen 04/18/24 18:24 04/18/24 18:24 04/18/24 18:59 Temperature Pulse Rate 101 H 101 H 103 H Respiratory Rate 25 H 25 H 24 H Blood Pressure Pulse Oximetry Oxygen Delivery Fraction of Inspired Oxygen 04/18/24 19:01 04/18/24 20:00 04/18/24 20:00 Temperature Pulse Rate 94 94 98 Respiratory Rate Blood Pressure 100/58 L 118/65 118/65 Pulse Oximetry Oxygen Delivery Fraction of Inspired Oxygen 04/18/24 20:00 04/18/24 20:00 04/18/24 20:00 Temperature 37.3 C Pulse Rate 98 73 73 Respiratory Rate 22 H 16 Blood Pressure 118/65 Pulse Oximetry 100 Oxygen Delivery Fraction of Inspired Oxygen 04/18/24 20:00 04/18/24 20:27 04/18/24 20:30 Temperature Pulse Rate 98 94 94 Respiratory Rate 22 H 22 H Blood Pressure Pulse Oximetry 100 100 Oxygen Delivery Mechanical Ventilation Mechanical Ventilation Fraction of Inspired Oxygen 40 40 04/18/24 20:35 04/18/24 21:55 04/18/24 21:55 Temperature Pulse Rate 91 91 Respiratory Rate Blood Pressure 98/61 L 98/61 L Pulse Oximetry Oxygen Delivery Fraction of Inspired Oxygen 40 04/18/24 22:00 04/18/24 22:00 04/18/24 22:00 Temperature 37.3 C Pulse Rate 94 93 92 Respiratory Rate 21 H 21 H Blood Pressure 91/59 L Pulse Oximetry 99 Oxygen Delivery Fraction of Inspired Oxygen 04/18/24 22:00 04/18/24 22:00 04/18/24 22:31 Temperature Pulse Rate 92 92 92 Respiratory Rate 21 H Blood Pressure 91/59 L 91/59 L Pulse Oximetry Oxygen Delivery Fraction of Inspired Oxygen 04/18/24 22:31 04/18/24 23:05 04/18/24 23:39 Temperature Pulse Rate 92 98 73 Respiratory Rate 21 H Blood Pressure 103/69 Pulse Oximetry 99 Oxygen Delivery Mechanical Ventilation Fraction of Inspired Oxygen 30 04/18/24 23:40 04/18/24 23:41 04/19/24 00:00 Temperature Pulse Rate 70 70 105 H Respiratory Rate 36 H 30 H Blood Pressure 103/69 Pulse Oximetry Oxygen Delivery Fraction of Inspired Oxygen 04/19/24 00:00 04/19/24 00:00 04/19/24 00:00 Temperature Pulse Rate 105 H 105 H 108 H Respiratory Rate 32 H Blood Pressure 114/65 114/65 Pulse Oximetry Oxygen Delivery Fraction of Inspired Oxygen 04/19/24 00:00 04/19/24 00:00 04/19/24 00:00 Temperature 37.4 C Pulse Rate 105 H 105 H Respiratory Rate 30 H 30 H Blood Pressure 114/65 Pulse Oximetry 99 99 Oxygen Delivery Mechanical Ventilation Fraction of Inspired Oxygen 40 40 04/19/24 00:00 04/19/24 00:29 04/19/24 01:30 Temperature Pulse Rate 108 H 103 H 105 H Respiratory Rate 24 H 24 H Blood Pressure 107/67 111/52 L Pulse Oximetry 99 98 Oxygen Delivery Fraction of Inspired Oxygen 04/19/24 01:31 04/19/24 02:00 04/19/24 02:00 Temperature Pulse Rate 105 H 66 66 Respiratory Rate 24 H Blood Pressure 111/52 L 103/48 L Pulse Oximetry 99 Oxygen Delivery Fraction of Inspired Oxygen 04/19/24 02:00 04/19/24 02:00 04/19/24 02:00 Temperature Pulse Rate 71 71 71 Respiratory Rate 24 H Blood Pressure 103/48 L 103/48 L Pulse Oximetry Oxygen Delivery Fraction of Inspired Oxygen 04/19/24 02:00 04/19/24 02:10 04/19/24 02:43 Temperature Pulse Rate 71 61 64 Respiratory Rate 24 H 20 Blood Pressure Pulse Oximetry 99 Oxygen Delivery Mechanical Ventilation Fraction of Inspired Oxygen 30 04/19/24 02:43 04/19/24 04:00 04/19/24 04:00 Temperature 37.3 C Pulse Rate 64 101 H Respiratory Rate 20 22 H Blood Pressure 100/60 Pulse Oximetry 99 Oxygen Delivery Fraction of Inspired Oxygen 30 04/19/24 04:00 04/19/24 04:00 04/19/24 04:00 Temperature Pulse Rate 101 H 101 H 90 Respiratory Rate 21 H 21 H Blood Pressure Pulse Oximetry Oxygen Delivery Fraction of Inspired Oxygen 04/19/24 04:00 04/19/24 04:05 04/19/24 04:05 Temperature Pulse Rate 60 101 H 101 H Respiratory Rate Blood Pressure 100/60 100/60 100/60 Pulse Oximetry Oxygen Delivery Fraction of Inspired Oxygen 04/19/24 04:15 04/19/24 05:23 04/19/24 06:00 Temperature Pulse Rate 101 H 60 61 Respiratory Rate 21 H Blood Pressure 99/53 L Pulse Oximetry 99 99 Oxygen Delivery Mechanical Ventilation Mechanical Ventilation Fraction of Inspired Oxygen 30 30 04/19/24 06:00 04/19/24 06:00 04/19/24 06:00 Temperature Pulse Rate 61 61 61 Respiratory Rate 22 H Blood Pressure 99/53 L Pulse Oximetry Oxygen Delivery Fraction of Inspired Oxygen 04/19/24 06:00 04/19/24 06:03 04/19/24 06:03 Temperature Pulse Rate 61 62 62 Respiratory Rate 22 H 23 H 23 H Blood Pressure 93/57 L Pulse Oximetry 99 Oxygen Delivery Fraction of Inspired Oxygen 04/19/24 06:35 04/19/24 06:35 04/19/24 07:20 Temperature Pulse Rate 58 L 56 L 58 L Respiratory Rate 22 H Blood Pressure 98/50 L Pulse Oximetry 100 Oxygen Delivery Mechanical Ventilation Fraction of Inspired Oxygen 30 04/19/24 08:00 04/19/24 08:00 04/19/24 08:00 Temperature 37.2 C Pulse Rate 60 60 60 Respiratory Rate 22 H 19 Blood Pressure 105/51 L 105/51 L Pulse Oximetry 99 Oxygen Delivery Fraction of Inspired Oxygen 04/19/24 08:00 04/19/24 08:00 04/19/24 08:00 Temperature Pulse Rate 60 Respiratory Rate Blood Pressure Pulse Oximetry Oxygen Delivery Mechanical Ventilation Fraction of Inspired Oxygen 30 30 04/19/24 08:13 04/19/24 09:33 04/19/24 09:33 Temperature Pulse Rate 61 67 67 Respiratory Rate 21 H 20 20 Blood Pressure Pulse Oximetry Oxygen Delivery Fraction of Inspired Oxygen 04/19/24 09:50 04/19/24 10:00 04/19/24 10:00 Temperature Pulse Rate 68 70 69 Respiratory Rate 20 24 H Blood Pressure 125/64 Pulse Oximetry 100 100 Oxygen Delivery Mechanical Ventilation Fraction of Inspired Oxygen 30 04/19/24 10:00 04/19/24 10:00 04/19/24 10:01 Temperature Pulse Rate 69 69 70 Respiratory Rate 24 H Blood Pressure 122/69 Pulse Oximetry Oxygen Delivery Fraction of Inspired Oxygen 04/19/24 10:17 04/19/24 10:55 04/19/24 11:09 Temperature Pulse Rate 70 71 73 Respiratory Rate 28 H Blood Pressure 125/64 Pulse Oximetry 99 Oxygen Delivery Mechanical Ventilation Fraction of Inspired Oxygen 30 04/19/24 11:09 04/19/24 11:18 04/19/24 12:00 Temperature 37.3 C Pulse Rate 73 75 74 Respiratory Rate 28 H 27 H Blood Pressure 130/66 108/59 L Pulse Oximetry 100 Oxygen Delivery Fraction of Inspired Oxygen 04/19/24 12:00 04/19/24 12:00 04/19/24 12:00 Temperature Pulse Rate 74 Respiratory Rate Blood Pressure 108/59 L Pulse Oximetry Oxygen Delivery Mechanical Ventilation Fraction of Inspired Oxygen 30 30 04/19/24 12:00 04/19/24 12:00 04/19/24 12:18 Temperature Pulse Rate 74 73 74 Respiratory Rate 27 H 26 H Blood Pressure Pulse Oximetry Oxygen Delivery Fraction of Inspired Oxygen 04/19/24 12:18 04/19/24 13:01 Temperature Pulse Rate 74 75 Respiratory Rate 26 H Blood Pressure Pulse Oximetry 100 Oxygen Delivery Mechanical Ventilation Fraction of Inspired Oxygen 30 Intake/Output Intake/Output: Intake & Output 04/16/24 04/17/24 04/18/24 04/19/24 23:59 23:59 23:59 23:59 Intake Total 3110.7 1895.1 4029.8 1690.1 Output Total 2648 1100 3100 900 Balance 462.7 795.1 929.8 790.1 Meds/Results Medications: Active Medications Generic Name Dose Route Start Last Admin Trade Name Freq PRN Reason Stop Dose Admin Acetaminophen 650 mg 04/17/24 17:11 04/17/24 17:19 Acetaminophen 325 Mg Tablet FEED TUBE 650 mg Q6H PRN Administration Mild Pain (1-3) or Fever Acyclovir 400 mg 04/16/24 09:00 04/19/24 08:13 Acyclovir 400 Mg Tablet PO 400 mg BID KAVON Administration Albuterol/Ipratropium 3 ml 04/18/24 08:24 Ipratropium 0.5 Mg/Albuterol Sulfate 2.5 Mg Ampul.Neb 3 Ml NEBULIZE Q6HRT PRN Wheezing Dextrose 12.5 gm 04/17/24 12:00 Dextrose 50% 25 Gm/50 Ml Syringe IV PUSH PRN PRN Hypoglycemia Protocol Glucagon 1 mg 04/17/24 12:00 Glucagon For Inj 1 Mg Vial IM PRN PRN Hypoglycemia Protocol Glucose 15 gm 04/17/24 12:00 Glucose Oral Gel 15 Gm Of Glucse In 37.5 Gm Tube PO PRN PRN Hypoglycemia Protocol Cefepime HCl 2 gm in 50 mls @ 100 mls/hr 04/16/24 08:00 04/19/24 08:41 Maxipime 2 Gm/Ns 50 Ml IVPB Infused Q8H KAVON Infusion Doxycycline Hyclate 100 mg in 100 mls @ 100 mls/hr 04/16/24 11:30 04/19/24 09:13 Vibramycin 100 Mg/Ns 100 Ml IVPB 04/21/24 11:29 Infused Q12HR KAVON Infusion Propofol 100 mls @ 8.919 mls/hr 04/17/24 09:15 04/19/24 12:18 Diprivan IV CONT 15 mcg/kg/min .[id number] KAVON 8.92 mls/hr Administration Protocol 15 MCG/KG/MIN Norepinephrine Bitartrate 8 mg in 250 mls @ 9.375 mls/hr 04/17/24 12:00 04/19/24 12:00 Levophed 8 Mg/D5w 250 Ml IV CONT 5 mcg/min .Q24H KAVON 9.38 mls/hr Titration Protocol 5 MCG/MIN Dextrose 1,000 mls @ 100 mls/hr 04/17/24 12:00 Dextrose 5% 1,000 Ml IVPB PRN PRN Hypoglycemia Protocol Fentanyl Citrate 2,500 mcg in 250 mls @ 5 mls/hr 04/18/24 08:25 04/19/24 12:00 Fentanyl 2,500 Mcg/Ns 250 Ml IV CONT 50 mcg/hr .Q50H KAVON 5 mls/hr Titration Protocol 50 MCG/HR Insulin Aspart 2 - 5 units 04/17/24 18:00 04/19/24 11:58 Insulin Aspart (*Bkc) 100 Units/Ml SUB-Q Not Given Q6HR [facility] Protocol Levothyroxine Sodium 75 mcg 04/17/24 06:30 04/19/24 05:43 Levothyroxine Sodium 75 Mcg Tablet PO 75 mcg DAILY@0630 KAVON Administration Metoprolol Tartrate 5 mg 04/17/24 10:27 Metoprolol Tartrate Inj 5 Mg/5 Ml Vial IV PUSH Q6H PRN Tachyarrhythmias Midazolam HCl 2 mg 04/18/24 08:23 Midazolam Hcl (*Crx) 2 Mg/2 Ml Vial IV PUSH Q5M PRN ventilator asynchrony Multi-Ingred Cream/Lotion/Oil/Oint 1 applic 04/17/24 09:00 04/19/24 08:14 Mineral Oil/White Petrolatum Ointment EACH EYE 1 applic Q12HR KAVON Administration Pantoprazole Sodium 40 mg 04/16/24 21:00 04/19/24 08:13 Pantoprazole Sodium Iv 40 Mg Vial IV PUSH 40 mg Q12H KAVON Administration Sodium Chloride 10 ml 04/17/24 14:00 04/19/24 12:58 Central Line Flush IV PUSH 10 ml Q8HR KAVON Administration Sodium Chloride 10 ml 04/17/24 14:00 04/19/24 12:59 Central Line Flush IV PUSH Not Given Q8HR KAVON Sodium Chloride 10 ml 04/17/24 07:18 Central Line Flush IV PUSH PRN PRN before/after int. infusion Sodium Chloride 20 ml 04/17/24 07:18 Central Line Flush IV PUSH PRN PRN after blood draws Sodium Chloride 10 ml 04/18/24 14:00 04/19/24 12:59 Central Line Flush IV PUSH Not Given Q8HR KAVON Sodium Chloride 10 ml 04/18/24 11:52 Central Line Flush IV PUSH PRN PRN with TPN bag changes Sodium Chloride 20 ml 04/18/24 11:52 Central Line Flush IV PUSH PRN PRN after blood draws Radiology Results: ITS Impressions Chest X-Ray 04/19/24 07:12 Impression: [id number] left pleural effusion with probable left basilar atelectasis. Central congestive changes. Support tubes, as above. Labs Labs: Laboratory Results - last 24 hr 04/18/24 04/18/24 04/19/24 18:31 23:39 05:25 WBC RBC Hgb Hct MCV MCH MCHC RDW Plt Count MPV Immature Gran % (Auto) Neut % (Auto) Lymph % (Auto) [place] % (Auto) Eos % (Auto) Baso % (Auto) Lymph # (Auto) [place] # (Auto) Eos # (Auto) Baso # (Auto) Abs Immat Gran (auto) Absolute Neuts (auto) Absolute Nucleated RBC Nucleated RBC % Platelet Estimate % Immature Plt Fraction Hypochromasia Anisocytosis Helmet Cells Schistocytes Puncture Site Left radial ABG pH 7.440 ABG pCO2 29.5 L ABG pO2 110.7 H ABG PO2/FiO2 Ratio 3.69 ABG HCO3 19.6 L ABG O2 Saturation 98.3 ABG O2 Content 10.7 L ABG Base Excess -4.0 A-a Gradient 68.5 Oxyhemoglobin 96.8 Carboxyhemoglobin 1.4 Methemoglobin 0.3 Reduced Hemoglobin 1.5 Total Hemoglobin 7.7 L* O2 Delivery Device Ventilator O2 Liters/Min Not Reportable Minute Volume Not Reportable Vent Rate 18 Vent Mode Cmv FiO2 30 Tidal Volume 420 PEEP 5 Peak Inspir Pressure Not Reportable Pressure Support Not Reportable Sodium Potassium Chloride Carbon Dioxide Anion Gap BUN Creatinine Estim Creat Clear Calc Estimated GFR Glucose POC Capillary Glucose 111 H 124 H Lactic Acid Calcium Phosphorus Magnesium Total Bilirubin AST ALT Alkaline Phosphatase Total Protein Albumin Triglycerides 04/19/24 04/19/24 04/19/24 05:40 11:44 12:16 WBC 1.9 L* 1.6 L* RBC 2.49 L 2.62 L Hgb 7.0 L 7.5 L Hct 21.7 L 22.9 L MCV 87.1 87.4 MCH 28.1 28.6 MCHC 32.3 32.8 RDW 18.2 H 18.2 H Plt Count 46 L 49 L MPV TNP 11.2 H Immature Gran % (Auto) 2.1 H Neut % (Auto) 40.8 L Lymph % (Auto) 49.7 H [place] % (Auto) 5.8 Eos % (Auto) 0.5 Baso % (Auto) 1.1 Lymph # (Auto) 0.94 [place] # (Auto) 0.1 Eos # (Auto) 0.0 Baso # (Auto) 0.0 Abs Immat Gran (auto) 0.04 H Absolute Neuts (auto) 0.8 L Absolute Nucleated RBC 0.000 Nucleated RBC % 0.0 Platelet Estimate Decreased % Immature Plt Fraction 5.5 5.6 Hypochromasia 1+ Anisocytosis 1+ Helmet Cells 1+ Schistocytes None seen Puncture Site ABG pH ABG pCO2 ABG pO2 ABG PO2/FiO2 Ratio ABG HCO3 ABG O2 Saturation ABG O2 Content ABG Base Excess A-a Gradient Oxyhemoglobin Carboxyhemoglobin Methemoglobin Reduced Hemoglobin Total Hemoglobin O2 Delivery Device O2 Liters/Min Minute Volume Vent Rate Vent Mode FiO2 Tidal Volume PEEP Peak Inspir Pressure Pressure Support Sodium 128 L Potassium 3.5 Chloride 103 Carbon Dioxide 23 Anion Gap 2 L BUN 15 Creatinine 0.50 L Estim Creat Clear Calc 148 Estimated GFR > 60 Glucose 112 H POC Capillary Glucose 98 Lactic Acid 1.5 Calcium 7.9 L Phosphorus 3.6 Magnesium 2.0 Total Bilirubin 0.6 AST 18 ALT 13 Alkaline Phosphatase 74 Total Protein 6.0 L Albumin 2.3 L Triglycerides 112
[2024-04-19] MEDS: AMIODARONE HCL 200 MG TABLET 400 MG PO (14:24)
[2024-04-19 18:25] LABS: Glucose Point of Care 105 mg/dl (65-105)
[2024-04-19 23:29] LABS: Glucose Point of Care 106 mg/dl (65-105)
[2024-04-19] MEDS: PROPOFOL IV EMULSION 100 ML 14.87 MG IV CONT (23:31)
[2024-04-20] VITALS (36 sets, daily range): BP systolic 94–117; BP diastolic 45–98; PULSE 44–123; RESP 22–32; TEMP 36.6–38; O2SAT 95–100
--- OUTSIDE RECORDS SUMMARY | 2024-04-20 02:19 | XMS_ITS | Encounter Summary ---
Author Organization [facility] Address [address] [place] [address] Phone Care Team Providers Care T Rail Turner Name Role Phone Yaya Britt MD Primary Care Provider [phone] Kaleb Tomlin MD Unavailable [phone] Evan Mai MD Unavailable [phone] Encounter Details Date Type Department Care Team (Late st Contact Info) Description 03/28/2024 Orders Only [facility] [address] [place] [address] Evan Mai MD [address] [place], [place] [id number] 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 having achieved remission (HCC) Social History Tobacco Use Types Packs/Day Years Used Date Smoking Tobacco: Former Cigarettes Smokeless Tobacco: Never Alcohol Use Standard Drinks/Week Comments No 0 (1 standard drink = 0.6 oz pur e alcohol) AUDIT-C Answer Date Recorded Q1: How often do you have a drink containing alcohol? Never 12/24/2023 Q2: How many drinks containi ng alcohol do you have on a typical day when you are drinking? Patient does not drink Q3: How often do you have si x or more drinks on one occasion? Never 12/24/2023 Sex and Gender Information Value Date Recorded Sex Assigned at Not on file Legal Sex Male 2:01 AM PAN OPERATOR Gender Identity Not on file Sexual Orientation Not on file documented as of this encounter Plan of Treatment Not on file documented as of this encounter Procedures Procedure Name Priority Date/Time Associated Diagnosis Comments CYTOGENETICS Routine 03/27/2024 2:13 PM PAN OPERATOR 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 having achieved remission (HCC) CHROMOSEQ - HEME GENETIC PROFILING (WGS) WITH INTERPRETATION Routine 03/27/2024 2:13 PM PAN OPERATOR 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 having achieved remission (HCC) MYELOSEQ HEME NGS PANEL WITH INTERPRETATION Routine 03/27/2024 2:13 PM PAN OPERATOR 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 having achieved remission (HCC) documented in this encounter Results * ChromoSeq - Heme Genetic Profiling (WGS) with interpretation Bone marrow (03/27/2024 2:13 PM PAN OPERATOR) Bone marrow (Bone Marrow Biopsy) 03/27/2024 2:13 PM PAN OPERATOR 03/28/2024 9:45 AM PAN OPERATOR Narrative [facility] - 04/11/2024 10:20 PM PAN OPERATOR [facility] [address] [place], [place] [id number] Final Report Patient Name: KELLEE TAPIA SR. Address: [address] [place] [address] Gender: M : 1960 (Age: 63) Accessioned: 03/28/2024 Taken: 03/27/2024 Received: 03/28/2024 Physician(s): Evan Morataya MD Service: [facility] Location: [facility] #: [id number] Patient Type: [facility] ChromoSeq Molecular DiagnosticsReported:04/11/2024 Tissue type: Bone Marrow Stated Diagnosis: MDS Diagnosis timepoint: New Diagnosis Treatment timepoint: New Diagnosis Transplant: None Prior history of MDS: No Prior history of cancer: No Blast Count: 5% WBC: 1.7 K/cumm Hgb: 7.9 g/dL Plt: 21 K/cumm Copy Number Alterations seq[GRCh38] del(3)(p12.2p26.3) CF=18% seq[GRCh38] del(3)(q11.2q13.2) CF=11% seq[GRCh38] del(4)(q13.1q22.1) CF=19% seq[GRCh38] del(5)(q11.2q35.3) CF=18% seq[GRCh38] del(6)(p22.1p25.3) CF=17% seq[GRCh38] dup(6)(p21.31p22.1) CF=11% seq[GRCh38] del(6)(p21.2p21.31) CF=16% seq[GRCh38] del(9)(q21.11qter) CF=16% seq[GRCh38] del(17)(p11.2p13.3) CF=13% seq[GRCh38] dup(21)(q11.2qter) CF=9% Structural Variants None detected Gene Mutations TP53 p.V173M VAF=14% NCCN AML Risk Category: NA IPSS-R MDS Cytogenetic Risk Category: Very poor Comment Multiple copy number alterations are identified, consistent with the corresponding cytogenetic studies (Q50-2590) and a complex karyotype. In addition, a TP53 c.517G>A (p.V173M) variant is detected. 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 Karthik Henderson MD, PhDReport Electronically Reviewed and Signed Out By ??Karthik Henderson MD, PhD ??04/11/2024 22:18:09 us Evan Mai MD LAB PATHOLOGY ORDERABLES Final Result [facility] CY[facility]ETICS [address] [place] [address] * Diagnosis MyeloSeq Heme NGS Panel with Interpretation Bone marrow (03/27/2024 2:13 PM PAN OPERATOR) Bone marrow (Bone Marrow Biopsy) 03/27/2024 2:13 PM PAN OPERATOR 03/28/2024 9:45 AM PAN OPERATOR Narrative [facility] CYTO[facility]ETICS - 04/12/2024 10:35 PM PAN OPERATOR [facility] [address] [place] [address] Final Report Patient Name: KELLEE TAPIA SR. Address: [address] [place] [address] Gender: M : 1960 (Age: 63) Accessioned: 03/28/2024 Taken: 03/27/2024 Received: 03/28/2024 Physician(s): Evan Morataya MD Service: [facility] Location: [facility] #: [id number] Patient Type: [facility] MyeloSeq Molecular DiagnosticsReported:04/12/2024 Varients Detected: ? GENE ? EXON ? VARIANT ? PROTEIN CHANGE ? VAF ? CLINICAL SIGNIFICANCE* ? PREVIOUSLY DETECTED ? TP53 ? 5 ? MISSENSE ? V173M ? 11% ? PATHOGENIC ? NO*Please see below for variant classification category details The following prior mutations were not detected: None No mutations were detected in the following sequenced genes and hotspots: ASXL1, BCOR, BCORL1, BRAF, CALR, CBL, CEBPA, CHEK2, CSF3R, CUX1, DDX41, DNMT3A, ETNK1, ETV6, EZH2, FLT3, GATA1, GATA2, GNB1, IDH1, IDH2, JAK2, KIT, KMT2A, KRAS, MPL, MYC, NF1, NOTCH1, NPM1, NRAS, PHF6, PIGA, PPM1D, PRPF8, PTPN11, RAD21, RUNX1, SETBP1, SF3B1, SMC1A, SMC3, SRSF2, STAG2, STAT3, STAT5B, SUZ12, TET2, U2AF1, UBA1, UBTF, WT1, ZRSR2 Variant Interpretation: A TP53 c.517G>A (p.V173M) variant is identified, consistent with the diagnosis of a myeloid neoplasm. This case is best classified as myelodysplastic syndrome with mutated TP53 by International Consensus Classification (ICC) criteria or myelodysplastic neoplasm with biallelic TP53 inactivation based on the 5th edition of the World Health Organization Classification of Haematolymphoid Tumours (WHO-HAEM5). Clinical History: 63-year-old man with a history of a high-grade myeloid neoplasm (diagnosed 2024-02-18), who is currently being treated, and who presents for evaluation. Corresponding bone marrow biopsy ([id number]) shows a markedly hypercellular marrow with 5% blasts and megakaryocytic dysplasia. Corresponding cytogenetic studies ([id number]) show a complex karyotype. Specimen site: Bone marrow Variant Detail: ? Gene ? Location (GR38) ? Reference allele ? Variant allele ? Transcript:Coding change ? Population Frequency* ? TP53 ? [id number] ? C ? T ? [id number]:c.517G>A ? none*The population allele frequency represents the maximum observed allele frequency in a diverse set of worldwide populations. QC Data: The following hotspots passed sequencing QC metrics: BRAF (codon 600), CALR (codon 9), CEBPA (codon domain), DNMT3A (codon 882), FLT3 (codons 835,569-613), IDH1 (codon 132), IDH2 (codons 140,172), JAK2 (codon 617), KIT (codon 816), KRAS (codons 61,12-13), MPL (codon 515), NPM1 (codons 287-288), NRAS (codons 61,12-13), SF3B1 (codons 700,662-666,622-626), SRSF2 (codons 95,103), TP53 (codons 238,248,273,275), U2AF1 (codons 34,157), UBA1 (codon 41) The following target genes failed minimum sequencing QC metrics (>=95% of positions >=250x): no genes failed QC Myeloseq Assay Version 3.0 This laboratory developed test (LDT) was developed and its performance characteristics determined by the CLIA Licensed Environment laboratory at the [facility] [place] [facility] ([facility], CLIA #[id number], CAP #[id number]), Dr. Sammy Johnson MD, PhD, [facility], Endoscopy Rn. [address] [facility], [address] [place], [place] [address] . The [facility] laboratory is regulated under CLIA as certified to perform high-complexity testing. Interpretation of sequencing results and case sign out is performed by Pathology and Immunology faculty in the Division of Genomic and Molecular Pathology ([facility], CLIA #[id number], CAP #[id number]) Dr. Sujatha Littlejohn Ph.D., Endoscopy Rn. [facility], [facility], [facility] [address] [address] [phone] . The [facility] is regulated under CLIA as certified to perform high-complexity testing. This test has not been cleared or approved by the FDA. This test uses hybridization capture-based enrichment that incorporates unique molecular identifiers (HYUN) coupled with Illumina-based next generation sequencing. A total of 54 genes and hotspots (partial genes) are targeted by the assay using approximately 30GBases of sequencing data generated on an [employer] X Plus. This test has been validated according to CAP guidelines for the detection of single nucleotide variants (SNVs) and indels (max validated size 117bp). This assay has two limits of detection: for new variants (not previously reported by [employer]) sensitivity is limited to 2% VAF; for previously reported variants the sensitivity is >95% for variants with VAFs >0.1%. The actual limit of detection (LOD) for known variants is limited by coverage at the sequenced position. This test does not use paired normal (germline) DNA to determine the somatic status of detected variants; somatic status for detected variants is inferred if the maximum observed allele frequency in a diverse set of worldwide populations is <0.1%. Common population polymorphisms (SNPs) are not reported by this assay and this assay does not distinguish rare inherited (constitutional variants) from somatic variants; should there be sufficient clinical concern for a constitutional cancer-associated mutation, please contact the laboratory for additional testing information. All variants are reported using HGVS nomenclature based on GRCh38 genomic coordinates. Transcripts are reported using the most canonical reference. Variants detected by this assay are classified into one of the following five categories: ? 1. Potentially therapeutic: target or biomarker for FDA-approved therapies. ? 2. Pathogenic: recurrent finding in high-quality peer-reviewed studies or meets the criteria for disease-related somatic mutation by NCCN guidelines. ? 3. Possibly donor-derived: detected after stem cell transplant in an engrafted patient but not present in pre-transplant studies; may represent a donor-derived germline variant or donor-derived clonal hematopoiesis. ? 4. Possibly germline: possibly germline variant based on VAF and population frequency; this assay is not designed to detect germline variants; confirmatory germline testing is required to determine the origin of any reported variant. ? 5. Uncertain significance: does not meet any of the above criteria and is therefore of uncertain clinical significance. ? Molecular testing using these methods is expected to be accurate. However, the chance of a false positive or false negative result due to laboratory errors incurred during any phase of testing cannot be completely excluded. [facility] does not have control over the quantity, quality or provenance of specimens originating from outside institutions. Accordingly, [facility] disclaims any and all responsibility and liability arising from a false positive or false negative result that may arise from an insufficient quantity of specimen, poor specimen quality, or contamination of specimen. This Report was generated using the materials and methods described above, which required the use of various reagents, protocols, instruments, software, databases, and other items, some of which were provided or made accessible by third parties. A defect or malfunction in any such reagents, protocols, instruments, software, databases, and/or other items may compromise the quality or accuracy of the Report. The Report has been created based on, or incorporates references to, various scientific manuscripts, references, and other sources of information, including without limitation manuscripts, references, and other sources of information that were prepared by third parties that describe correlations between certain genetic mutations and particular diseases (and/or certain therapeutics that may be useful in ameliorating the effects of such diseases). Such information and correlations are subject to change coordinator time in response to future scientific and medical findings. makes no representation or warranty of any kind, expressed or implied, regarding the accuracy of the information provided by or contained in such manuscripts, references, and other sources of information. If any of the information provided by or contained in such manuscripts, references, and other sources is later determined to be inaccurate, the accuracy and quality of the Report may be adversely impacted. [facility] is not obligated to notify you of any impact that future scientific or medical research findings may have on the Report. The Report must always be interpreted and considered within the clinical context, and a physician should always consider the Report along with all other pertinent information and data that a physician would prudently consider prior to providing a diagnosis to a patient or developing and implementing a plan of care for a patient. The Report should never be considered or relied upon alone in making any diagnosis or prognosis. The manifestation of many diseases are caused by more than one gene variant, a single gene variant may be relevant to more than one disease, and certain relevant gene variants may not have been considered in the Report. In addition, many diseases are caused or influenced by modifier genes, epigenetic factors, environmental factors, and other variables that are not addressed by the Report (or that are otherwise unknown). As such, the relevance of the Report should be interpreted in the context of a patient's clinical manifestations. The Report provided by [facility] is provided on an IS basis. makes no representation or warranty of any kind, expressed or implied, regarding the Report. In no event shall [facility] be liable for any actual damages, indirect damages, and/or special or consequential damages arising out of or in any way connected with the Report, your use of the Report, your reliance on the Report, or any defect or inaccurate information included within the Report. Karthik Henderson MD, PhDReport Electronically Reviewed and Signed Out By ??Karthik Henderson MD, PhD ??04/12/2024 22:33:50 Evan Mai MD LAB PATHOLOGY ORDERABLES Final Result [facility] [address] [place] [address] * Cytogenetics Bone marrow (03/27/2024 2:13 PM PAN OPERATOR) Bone marrow (Bone Marrow Biopsy) 03/27/2024 2:13 PM PAN OPERATOR 03/27/2024 2:13 PM PAN OPERATOR Narrative [facility] CYTO[facility]ET[facility] - 04/11/2024 2:17 PM PAN OPERATOR EPIC results best viewed via link to PDF [facility] Department of Pathol [address] [place] [address] ? Patient Information ? Name: ??KELLEE TAPIA SR. ? Gender: ??M ? : ??1960 (Age: 63) ? Tissue: ??Bone Marrow w/ FISH ? Visit Information ? Hospital #: ? [id number] ? Facility: ? [facility] ? Service: ? [facility] ? Location: ? UNKNOWN ? Patient Type: ? [facility]-EPIC ? Specimen Information: ? Culture #: ??[id number] ? Date Collected: ??03/27/2024 ? Date Accessioned: ??03/28/2024 ? Date Ordered: ??03/27/2024 ? Physician(s): ? Evan Morataya MD ? Processing: ? 24 hours unstimulated Indication: ? 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 having achieved remission Specimen Quality: ? Low cell count Adequate: ??FISH: AML panel per algorithm Low mitotic index: ??Chromosome analysis: Limited Karyotype CLINICAL REPORT CHROMOSOME ANALYSIS Metaphases Counted: ??6Banding Technique: ??GTWColonies Counted: ??Metaphases Analyzed: ??6Additional Method: ??FISHNumber of Cultures: ??1Metaphases Karyotyped: ??4Banding Resolution: ??400Subculture: ?? Karyotype: 42~44,XY,-3,dic(15;17)(q11.1;p11.1),abraham(6)t(3;6)(q25;p24),-9,add(21)(p11.1),+add (21)[ cp6].nuc bree(M2V595/E4D9149j8,EGR1x1)[37/200],(LDCX8V4m9,BTCP6b6)[17/200],(ASS1x1,ABL1x1, BCRx2 )[33/200], (MECOM,W5L841,KMT2A,PML,CBFB,GRANT)x2[200] Non-Clonal Aberration: abraham(3)t(3;6)(p25;q13~15) Diagnosis: CHROMOSOME ANALYSIS: ? LIMITED COMPLEX KARYOTYPE FISH FINDINGS: ?DELETION OF EGR1 (5q) - 18.5% ?TRISOMY OF RUNX1 (21q) - 8.5% ?MONOSOMY OF ASS1/ABL1 (9q) - 16.5% ?NO EVIDENCE OF MECOM REARRANGEMENT ?NO EVIDENCE OF DELETION/MONOSOMY OF F8U615 (7q) ?NO EVIDENCE OF KELX9O2::RUNX1, BCR::ABL1, KMT2A, PML::GRANT ? OR CBFB REARRANGEMENT INTERPRETATION: Only six metaphase cells were obtained and analyzed from an unstimulated culture. ??All six metaphase cells analyzed revealed the clonal aberrations described above in a composite karyotype (cp). ??Due to uify-vg-vecs heterogeneity, the karyotypic description is composite, listing only consistent clonal aberrations. ??The aberrations include a loss of chromosomes 3 and 9, a dicentric chromosome composed of chromosomes 5 and 17, a derivative chromosome 6 resulting from a translocation involving the long arm of chromosome 3 and the short arm of chromosome 6, additional material of unknown origin on the short arm of chromosome 21, as well as an additional copy of the abnormal chromosome 21. ?? The dicentric chromosome observed is a non-random event in myeloid malignancies and results in near monosomies of 5q and 17p. ??These findings are consistent with concurrent FISH findings. The significance of a non-clonal aberration is not understood. ??It may represent an emerging or undetected clonal cell population, culture artifact, or a random event. ??Its presence has been noted for future studies. This limited/incomplete study may not rule out mosaicism at a level that is standard for such an analysis. Small chromosome anomalies may not be detectable using the standard methods employed. ??Chromosome analysis was performed at a level of 400 bands or greater. PLEASE NOTE: ??All available chromosome preparation was examined looking for analyzable metaphase cells using automated slide-scanning technology and no additional analyzable cells were found. The chromosome analysis findings must be interpreted within the context of the pathologic and clinical findings. ??Follow-up evaluation is recommended. Chromosome analysis and Fluorescence In Situ Hybridization (FISH) analysis are performed using the [employer] Imaging System. Report Electronically Reviewed and Signed Out By Hima Bernal, PhD, FACMGDate Reported: ??4Associate Professor, Division of Genomic & Molecular Pathology FLUORESCENCE IN-SITU HYBRIDIZATION [FISH] Karyotype: nuc bree(T2Z663/F4R2899k6,EGR1x1)[37/200],(JMPC2N3i7,ETKB1n3)[17/200],(ASS1x1,ABL1x1, BCRx2 )[33/200], (X7P737,KMT2A,PML,CBFB,GRANT)x2[200] Diagnosis: FISH FINDINGS: ?DELETION OF EGR1 (5q) - 18.5% ?TRISOMY OF RUNX1 (21q) - 8.5% ?MONOSOMY OF ASS1/ABL1 (9q) - 16.5% ?NO EVIDENCE OF DELETION/MONOSOMY OF J1H434 (7q) ? NO EVIDENCE OF VGPC0K6::RUNX1, BCR::ABL1, KMT2A, PML::GRANT OR CBFB ? REARRANGEMENT Pending FISH: ?FISH for MECOM INTERPRETATION: FISH analysis was performed with a panel of [employer] and [employer] probes for AML and is interpreted as ABNORMAL for the EGR1, MFBF7Y2::RUNX1, and BCR::ABL1 probe sets. 1) FISH evaluation for a 5q deletion was performed on nuclei with the EGR1,G4M434/K4Q7326 Dual Color Probe ([employer] for EGR1 at 5q31.1 and the control K7H573/N5N8889 at 5p15.31 and is interpreted as ABNORMAL. ??One EGR1 hybridization signal and two S0W213/T7H1070 control hybridization signals were observed in 37/200 nuclei, which exceeds the normal range (up to 3.1%) established for this probe in the [facility] at [facility]. 2) FISH evaluation for a DBYU8I7::RUNX1 rearrangement was performed on nuclei with the LSI IWQL3P7::RUNX1 Dual Color, Dual Fusion Translocation Probe ([employer] for MGWC8U7(ETO) at 8q22 and RUNX1(AML1) at 21q22 and is interpreted as ABNORMAL, although an RUFE1L0::RUNX1 rearrangement was not detected. ??An abnormal hybridization pattern consisting of two REZU4H1 hybridization signals and three RUNX1 hybridization signals was observed in 17/200 nuclei, indicative of trisomy for the corresponding region on chromosome 21. ??This value exceeds the normal range (up to 1%) established for this probe in the [facility] at [facility]. ?? 3) FISH evaluation for a BCR::ABL1 rearrangement was performed on nuclei with the LSI BCR::ABL1 Tricolor, Dual Fusion Translocation Probe ([employer] for ASS1/ABL1 at 9q34 and BCR at 22q11.2 and is interpreted as ABNORMAL, although a BCR::ABL1 rearrangement was not detected. ??An abnormal hybridization pattern consisting of one ASS1/ABL1 hybridization signal and two BCR hybridization signals was observed in 33/200 nuclei, indicative of monosomy for the corresponding region on chromosome 9. ??This value exceeds the normal range (up to 1%) established for this probe in the [facility] at [facility]. 4) FISH evaluation for a 7q deletion was performed on nuclei with the LSI X7M757/D7Z1 Dual Color Probe ([employer] for A7P013 at 7q31 and the control D7Z1 at 7p11.1-q11.1 and is interpreted as NORMAL. ??Two J3A243 hybridization signals and two D7Z1 control hybridization signals were observed in 200/200 nuclei, which is within the normal range established for this probe set in the [facility] at [facility]. ??Up to 1% of cells in normal samples can show an apparent 7q deletion using this probe. ??A normal W0S003 FISH finding can result from the absence of a 7q deletion, from a 7q deletion that does not involve the region to which this probe hybridizes or from an insufficient number of neoplastic cells in the specimen. 5) FISH evaluation for an KMT2A (MLL) rearrangement was performed on nuclei with the LSI KMT2A Dual Color, Break Apart Rearrangement Probe ([employer] at 11q23 and is interpreted as NORMAL. ??No rearrangement was observed in 200/200 nuclei, which is within the normal range established for this probe in the [facility] at [facility]. ??Up to 1% of cells in normal samples can show an apparent KMT2A rearrangement using this probe. ??A normal KMT2A FISH finding can result from the absence of an KMT2A rearrangement, from a variant KMT2A rearrangement or from an insufficient number of neoplastic cells in the specimen. 6) FISH evaluation for a PML::GRANT rearrangement was performed on nuclei with the LSI PML::GRANT Dual Color, Dual Fusion Translocation Probe ([employer] for PML at 15q24 and GRANT at 17q21 and is interpreted as NORMAL. ??No rearrangement was observed in 190/200 nuclei, which is within the normal range established for this probe in the [facility] at [facility]. Variant signal pattern was observed in 10/200 nuclei. ??Up to 13% of cells in normal samples can show random overlap of PML::GRANT probes and additional nuclei may show extra or missing signals. ??A normal PML::GRANT FISH finding can result from the absence of a PML::GRANT rearrangement, from a variant PML::GRANT rearrangement or from an insufficient number of neoplastic cells in the specimen. 7) FISH evaluation for a CBFB rearrangement was performed on nuclei with the LSI CBFB Dual Color, Break Apart Rearrangement Probe ([employer] at 16q22 and is interpreted as NORMAL. ??No rearrangement was observed in 200/200 nuclei, which is within the normal range established for this probe in the [facility] at [facility]. ??Up to 2% of cells in normal samples can show an apparent CBFB rearrangement using this probe. ??A normal CBFB FISH finding can result from the absence of a CBFB rearrangement, from a variant CBFB rearrangement or from an insufficient number of neoplastic cells in the specimen. NOTE: FISH evaluation for MECOM and complete chromosome analysis are pending and will be reported separately. The FISH findings must be interpreted within the context of the pathologic and clinical findings. Follow-up evaluation is recommended. This test was developed and its performance characteristics determined by [facility]. It has not been cleared or approved by the FDA. The laboratory is regulated under CLIA as qualified to perform high-complexity testing. This test is used for clinical purposes. It should not be regarded as investigational or for research. Chromosome analysis and Fluorescence In Situ Hybridization (FISH) analysis are performed using the [employer] Imaging System. Report Electronically Reviewed and Signed Out By Asim Bear, PhD, FACMGDate Reported: ??4Assistant Professor, Division of Genomic & Molecular Pathology REFLEX FLUORESCENCE IN-SITU HYBRIDIZATION [FISH] Karyotype: nuc bree(MECOMx2)[200] Diagnosis: ?? FISH FINDINGS: ?NO EVIDENCE OF MECOM (3q) REARRANGEMENT INTERPRETATION: FISH evaluation for an EVI1(MECOM) rearrangement was performed on nuclei with the BETHANY Dual Color, Break Apart Rearrangement Probe ([employer]) at 3q26 and is interpreted as NORMAL. ??No rearrangement was observed in 199/200 nuclei, which is within the normal range established for this probe in the [facility] at [facility]. ??Up to 2% of cells in normal samples can show an apparent MECOM rearrangement using this probe. ??A normal MECOM FISH finding can result from the absence of a MECOM rearrangement, from a variant MECOM rearrangement or from an insufficient number of neoplastic cells in the specimen. Other FISH results were reported separately. The FISH findings must be interpreted within the context of the pathologic and clinical findings. Follow-up evaluation is recommended. Complete chromosome analysis is pending and will be reported separately. This test was developed and its performance characteristics determined by [facility]. It has not been cleared or approved by the FDA. The laboratory is regulated under CLIA as qualified to perform high-complexity testing. This test is used for clinical purposes. It should not be regarded as investigational or for research. Chromosome analysis and Fluorescence In Situ Hybridization (FISH) analysis are performed using the [employer] Imaging System. Report Electronically Reviewed and Signed Out By Margaret Ratliff, PhD Date Reported: ??4Assistant Professor, Division of Genomic & Molecular Pathology Evan Mai MD LAB GENETIC TESTING Final Resu lt [facility] [address] [place] [address] documented in this encounter Visit Diagnoses Diagnosis 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 having achieved remission (HCC) documented in this encounter Care Teams [employer] Relationship Specialty Start Date End Date Yaya Britt MD PCP - General 07/31/16 Kaleb Tomlin MD [address] [id number] Referring Physician Hematology 02/29/24 Evan Mai MD [address] [facility] [address] DIV [place] [address] Consulting Physician Internal Medicine 03/01/24 documented as of this encounter
--- OUTSIDE RECORDS SUMMARY | 2024-04-20 02:19 | XMS_ITS | Referral Summary ---
Author Organization [facility] Address [address] [place] [address] Care Team Providers Care Pasteuriser Operator Name Role Phone Yaya Britt MD Primary Care Provider [phone] Kaleb Tomlin MD Unavailable [phone] Evan Mai MD Unavailable [phone] Encounters Date Type Department Care Team Description 03/28/2024 Orders Only [facility] [address] [place] [address] Evan Mai MD 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 having achieved remission (HCC) 03/27/2024 12:30 PM CIGARETTE MACHIN[employer] MECHANIC Clinical Support [facility] - Lab Collection [facility] [address] [address] 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 having achieved remission (HCC) 03/27/2024 1:30 PM CIGARETTE MACHINES MECHANIC Infusion [facility] - Infusion [address] [facility] [address] [place] [address] 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 [address] [place] [address] Donis Adams RN 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 having achieved remission (HCC) (Primary Dx) 03/21/2024 5:30 PM CIGARETTE MACHINES MECHANIC Infusion [facility] - Infusion [address] [facility] [address] [place] [address] Anemia, unspecified type (Primary Dx); 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 having achieved remission (HCC) 03/21/2024 3:30 PM CIGARETTE MACHINES MECHANIC Infusion [facility] - Infusion [address] [facility] [address] [place] [address] 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 having achieved remission (HCC) 03/21/2024 1:40 PM CIGARETTE MACHIN[employer] MECHANIC Office Visit [facility] Marrow Transplant [address] [place] [address] [phone] Evan Mai MD MDS (myelodysplastic syndrome) (HCC) (Primary Dx); 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 having achieved remission (HCC); TP53 gene mutation positive; 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); Rheumatoid arthritis involving multiple sites, unspecified whether rheumatoid factor present (HCC); Atrial fibrillation, unspecified type (HCC); Tobacco consumption 03/20/2024 Orders Only [facility] Marrow Transplant [address] [place] [address] [phone] Donis Adams RN 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 having achieved remission (HCC) (Primary Dx) 03/16/2024 Telephone [facility]row Transplant [address] [place] [address] [phone] Donis Adams RN 03/01/2024 Orders Only [facility]row Transplant [address] [place] [address] [phone] Evan Mai MD 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 having achieved remission (HCC) (Primary Dx) from Last 3 Months Allergies Active Allergy Reactions Criticality Noted Date Comments Heparin Unknown 03/21/2024 Medications folic acid (FOLVITE) 800 mcg tablet take 1 tablet (0.8MG) by oral route every day 0 04/17/20 11 Active folic acid (FOLVITE) 1 mg tablet take 1 Tablet by oral route every day 30 0 01/09/20 14 Active Additional Information Patient not taking.Reported on 08/06/2023 predniSONE (DELTASONE) 5 mg tablet take 3 (15MG) by oral route every day for 7 days then take 2 tabs a day for 7 days, then 1 tab a day for 7 days 42 0 09/22/19 17 Active Additional Information Patient not taking.Reported on 03/21/2024 HYDROcodone-acetam inophen (NORCO) 7.5-325 mg per tabletIndications: Pain Take 1 tablet by mouth every 6 (six) hours as needed for pain. 120 tablet 07/15/19 18 Active amoxicillin-clavul anate (AUGMENTIN) 875-125 mg per tablet Take 1 tablet by mouth every 12 (twelve) hours 07/03/19 24 Active levothyroxine (SYNTHROID) 88 mcg tablet Take 1 tablet (88 mcg total) by mouth casting assistant before breakfast Active metoprolol XL (TOPROL-XL) 50 mg extended release tablet TAKE 1 TABLET(50 MG) BY MOUTH DAILY 90 tablet 2 10/26/19 24 Active Entresto 24-26 mg tablet TAKE 1 TABLET BY MOUTH TWICE DAILY 60 tablet 5 01/17/20 24 Active Jardiance 10 mg tablet TAKE 1 TABLET(10 MG) BY MOUTH DAILY 90 tablet 2 02/23/20 24 Active spironolactone (ALDACTONE) 25 mg tablet TAKE 1 TABLET(25 MG) BY MOUTH DAILY 90 tablet 2 02/23/20 24 Active ASCORBIC ACID, VITAMIN C, ORALIndications:He art failure with mildly reduced ejection fraction (HFmrEF) ([facility]),Rheumatoid arthritis involving multiple sites, unspecified whether rheumatoid factor present ([facility]),Atrial fibrillation, unspecified type ([facility]) Take by mouth Active acyclovir (ZOVIRAX) 400 mg tabletIndications: Heart failure with mildly reduced ejection fraction (HFmrEF) ([facility]),Rheumatoid arthritis involving multiple sites, unspecified whether rheumatoid factor present ([facility]),Atrial fibrillation, unspecified type ([facility]) Take 1 tablet (400 mg total) by mouth every 4 (four) hours while awake 03/16/20 24 Active Airsupra 90-80 mcg/actuation HFA aerosol inhalerIndications :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),Rheumatoid arthritis involving multiple sites, unspecified whether rheumatoid factor present ([facility]),Atrial fibrillation, unspecified type ([facility]) 03/01/20 24 Active ALPRAZolam (XANAX) 0.25 mg tabletIndications: 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),Rheumatoid arthritis involving multiple sites, unspecified whether rheumatoid factor present (HCC),Atrial fibrillation, unspecified type (HCC) Take 1 tablet (0.25 mg total) by mouth nightly as needed Active ferrous sulfate 325 mg (65 mg of elemental iron) tabletIndications: 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),Rheumatoid arthritis involving multiple sites, unspecified whether rheumatoid factor present (HCC),Atrial fibrillation, unspecified type (HCC) Take 1 tablet (325 mg total) by mouth 2 (two) times a day 08/02/19 24 Active FLUoxetine (PROzac) 20 mg capsuleIndications :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),Rheumatoid arthritis involving multiple sites, unspecified whether rheumatoid factor present (HCC),Atrial fibrillation, unspecified type (HCC) Take 1 capsule (20 mg total) by mouth daily 03/01/20 24 Active leflunomide (ARAVA) 10 mg tabletIndications: 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),Rheumatoid arthritis involving multiple sites, unspecified whether rheumatoid factor present (HCC),Atrial fibrillation, unspecified type (HCC) Take 1 tablet (10 mg total) by mouth daily 01/22/20 24 Active multivitamin tabletIndications: 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),Rheumatoid arthritis involving multiple sites, unspecified whether rheumatoid factor present (HCC),Atrial fibrillation, unspecified type (HCC) Take 1 tablet by mouth daily Active ondansetron ODT (ZOFRAN-ODT) 8 mg disintegrating tabletIndications: 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),Rheumatoid arthritis involving multiple sites, unspecified whether rheumatoid factor present (HCC),Atrial fibrillation, unspecified type (HCC) Take 1 tablet (8 mg total) by mouth every 8 (eight) hours as needed 03/16/20 24 Active traZODone (DESYREL) 50 mg tabletIndications: 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),Rheumatoid arthritis involving multiple sites, unspecified whether rheumatoid factor present (HCC),Atrial fibrillation, unspecified type (HCC) Take 1 tablet (50 mg total) by mouth daily Active Active Problems Problem Noted Date Diagnosed Date 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 having achieved remis obi 03/20/2024 Heart failure with mildly re duced ejection fraction (HFmrEF) 08/06/2023 Atrial fibrillation (CMS/HCC) 08/06/2023 [facility]oid [facility] without rheumatoid factor (CMS/HCC) 01/15/2017 High risk medication use 01/15/2017 Anemia 01/15/2017 Chronic midline low back pain without sciatica 0 01/15/2017 Drug indicated 09/16/2013 Overview (08/07/2016): Encounter for long-term (current) use of high-risk Rheumatoid arthritis 09/16/2013 Overview (08/08/2016): Arthritis, rheumatoid Social History Tobacco Use Types Packs/Day Years Used Date Smoking Tobacco: Former Cigarettes Smokeless Tobacco: Never Tobacco Cessation:Counseling Given: Not Answered Alcohol Use Standard Drinks/Week Comments No 0 [...] on file Legal Sex Male 2:01 AM CIGARETTE MACH[employer] MECHANIC Gender Identity Not on file Sexual Orientation Not on file Last Filed Vital Signs Vital Sign Reading Time Taken Comments Blood Pressure 108/65 03/27/2024 2:29 PM CIGARETTE MACHINES MECHANIC Pulse 72 03/27/2024 2:29 PM CIGARETTE MACHINES MECHANIC Temperature 36.9 ??C (98.4 ??F) 03/27/2024 1:35 PM CS T Respiratory Rate 18 03/27/2024 2:29 PM CIGARETTE MACHINES MECHANIC Oxygen Saturation 96% 03/27/2024 2:29 PM CIGARETTE MACHINES MECHANIC Inhaled Oxygen Concentration - - Weight 92.8 kg (204 lb 9.4 oz) 03/27/2024 1:35 P M [employer]IGARETTE MACH[employer] MECHANIC Height 172.7 cm (5' 8 ) 12/24/2023 9:27 AM CDT Body Mass Index 31.11 12/24/2023 9:27 AM CDT Plan of Treatment Not on file Procedures Procedure Name Priority Date/Time Associated Diagnosis Comments CHROMOSEQ - HEME GENETIC PROFILING (WGS) WITH INTERPRETATION Routine 03/27/2024 2:13 PM CIGARETTE MACHIN[employer] MECHANIC 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 having achieved remission (HCC) MYELOSEQ HEME NGS PANEL WITH INTERPRETATION Routine 03/27/2024 2:13 PM CIGARETTE MACHINES MECHANIC 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 having achieved remission (HCC) SURGICAL PATHOLOGY Routine 03/27/2024 2: 13 PM CIGARETTE MACHIN[employer] MECHANIC 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 having achieved remission (HCC) FLOW LEUKEMIA/LYMPHOMA Routine 2:13 PM CIGARETTE MACHIN[employer] MECHANIC 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 having achieved remission (HCC) CYTOGENETICS Routine 03/27/2024 2:13 PM CIGARETTE MACHINES MECHANIC 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 having achieved remission (HCC) CYTOGENETICS TRACKING ORDER Routine 03/27/2024 2:13 PM CIGARETTE MACHINES MECHANIC 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 having achieved remission (HCC) HEMATOLOGIC MOLECULAR ALGORITHM Routine 03/27/2024 2:13 PM CIGARETTE MACHINES MECHANIC 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 having achieved remission (HCC) MYELOSEQ TRACKING ORDER Routine 03/27/2024 2:13 PM CIGARETTE MACHINES MECHANIC 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 having achieved remission (HCC) CHROMOSEQ TRACKING ORDER Routine 03/27/2024 2:13 PM CIGARETTE MACHINES MECHANIC 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 having achieved remission (HCC) EGFR Routine 03/27/2024 1:23 PM CIGARETTE MACHINES MECHANIC 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 having achieved remission (HCC) MANUAL DIFFERENTIAL Routine 03/27/2024 1 :23 PM CIGARETTE MACHINES MECHANIC 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 having achieved remission (HCC) CBC WITH AUTO DIFFERENTIAL Routine 03/27/2024 1:23 PM CIGARETTE MACHINES MECHANIC 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 having achieved remission (HCC) COMPREHENSIVE METABOLIC PANEL Routine 03/27/2024 1:23 PM CIGARETTE MACHINES MECHANIC 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 having achieved remission (HCC) TRANSFUSE RED BLOOD CELLS Timed 03/21/2024 6:29 PM CIGARETTE MACHINES MECHANIC 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 having achieved remission (HCC) Anemia, unspecified type TRANSFUSE RED BLOOD CELLS Timed 03/21/2024 4:55 PM CIGARETTE MACHINES MECHANIC 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 having achieved remission (HCC) Anemia, unspecified type B CHECK SAMPLE STAT 03/21/2024 2:48 PM CIGARETTE MACHINES MECHANIC PREPARE RBC Timed 03/21/2024 2:46 PM CIGARETTE MACHINES MECHANIC 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 having achieved remission (HCC) Anemia, unspecified type DIFFERENTIAL AUTO STAT 03/21/2024 1:0 5 PM CIGARETTE MACHINES MECHANIC 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 having achieved remission (HCC) CBC WITH AUTO DIFFERENTIAL STAT 03/21/2024 1:05 PM CIGARETTE MACHINES MECHANIC 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 having achieved remission (HCC) EGFR STAT 03/21/2024 12:59 PM CIGARETTE MACHINES MECHANIC 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 having achieved remission (HCC) URIC ACID Routine 03/21/2024 12:59 PM CIGARETTE MACHINES MECHANIC 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 having achieved remission (HCC) MAGNESIUM Routine 03/21/2024 12:59 PM CIGARETTE MACHINES MECHANIC 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 having achieved remission (HCC) PHOSPHORUS Routine 03/21/2024 12:59 PM CIGARETTE MACHINES MECHANIC 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 having achieved remission (HCC) TYPE AND SCREEN STAT 03/21/2024 12:59 PM CIGARETTE MACHINES MECHANIC 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 having achieved remission (HCC) COMPREHENSIVE METABOLIC PANEL STAT 03/21/2024 12:59 PM CIGARETTE MACHINES MECHANIC 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 having achieved remission (HCC) LACTATE DEHYDROGENASE STAT 03/21/2024 12:59 PM CIGARETTE MACHINES MECHANIC 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 having achieved remission (HCC) CMV, IGG STAT 03/21/2024 12:59 PM CIGARETTE MACHINES MECHANIC 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 having achieved remission (HCC) from Last 3 Months Results * Cytogenetics Specimen Tracking Bone marrow (03/27/2024 2:13 PM CIGARETTE MACHINES MECHANIC) Cytotenetics Tracking Order Received Bone marrow 03/27/2024 2:13 PM CIGARETTE MACHINES MECHANIC 03/27/2024 5:26 PM CIGARETTE MACHINES MECHANIC Narrative [facility] - 03/28/2024 9:48 AM CIGARETTE MACHINES MECHANIC Please read the Cytogenetics Epic requisition for specimen collection requirements. us Evan Mai MD LAB BODY FLUIDS AND STOOLS ORD ERABLES Final Result [facility] One [facility] Department [place] [address] * Cytogenetics Bone marrow (03/27/2024 2:13 PM CIGARETTE MACHINES MECHANIC) Bone marrow (Bone Marrow Biopsy) 03/27/2024 2:13 PM CIGARETTE MACHINES MECHANIC 03/27/2024 2:13 PM CIGARETTE MACHINES MECHANIC Narrative [facility] - CYTOGENETICS - 04/11/2024 2:17 PM CIGARETTE MACHINES MECHANIC [facility] results best viewed via link to PDF [facility] Department of Pathol [address] [place] [id number] ? Patient Information ? Name: ??KELLEE PALACIOS. . ? Gender: ??M ? : ??1960 (Age: 63) ? Tissue: ??Bone Marrow w/ FISH ? Visit Information ? Hospital #: ? [id number] ? Facility: ? [facility] ? Service: ? [facility]PT ? Location: ? UNKNOWN ? Patient Type: ? WUPT-EPIC ? Specimen Information: ? Culture #: ??[id number] ? Date Collected: ??03/27/2024 ? Date Accessioned: [...] Resolution: ??400Subculture: ?? 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 LIMITED COMPLEX KARYOTYPE FISH FINDINGS: ?DELETION OF EGR1 (5q) - 18.5% ?TRISOMY OF RUNX1 (21q) - 8.5% ?MONOSOMY OF ASS1/ABL1 (9q) - 16.5% ?NO EVIDENCE OF MECOM REARRANGEMENT ?NO EVIDENCE OF DELETION/MONOSOMY OF X9C116 (7q) ?NO EVIDENCE OF LDLH5H1::RUNX1, BCR::ABL1, KMT2A, PML::GRANT ? OR CBFB REARRANGEMENT INTERPRETATION: Only six metaphase cells were obtained and analyzed from an unstimulated culture. ??All six metaphase cells analyzed revealed the clonal aberrations described above in a composite karyotype (cp). ??Due to ekdt-ky-ibgn heterogeneity, the karyotypic description is composite, listing [...] Hybridization (FISH) analysis are performed using the [employer] Cytovision Imaging System. Report Electronically Reviewed and Signed Out By Hima Bernal, PhD, FACMGDate Reported: ??4Associate Professor, Division of Genomic & Molecular Pathology FLUORESCENCE IN-SITU HYBRIDIZATION [FISH] Karyotype: nuc bree(T5L552/A0U0769w4,EGR1x1)[37/200],(IXBG2G0i6,WIJF6b6)[17/200],(ASS1x1,ABL1x1, BCRx2 )[33/200], (F1M375,KMT2A,PML,CBFB,GRANT)x2[200] Diagnosis: FISH FINDINGS: ?DELETION OF EGR1 (5q) - 18.5% ?TRISOMY OF RUNX1 (21q) - 8.5% ?MONOSOMY OF ASS1/ABL1 (9q) - 16.5% ?NO EVIDENCE OF DELETION/MONOSOMY OF U9S812 (7q) ? NO EVIDENCE OF KFRE4Y4::RUNX1, BCR::ABL1, KMT2A, PML::GRANT OR CBFB ? REARRANGEMENT Pending FISH: ?FISH for MECOM INTERPRETATION: FISH analysis was performed with a panel of [employer] and [employer] probes for AML and is interpreted as ABNORMAL for the EGR1, RDUY4O0::RUNX1, and BCR::ABL1 probe sets. 1) FISH evaluation for a 5q deletion was performed on nuclei with the EGR1,C1W052/Z6W4763 Dual Color Probe ([employer] for EGR1 at 5q31.1 and the control I8A259/J4J6158 at 5p15.31 and is interpreted as ABNORMAL. ??One EGR1 hybridization signal and two E6P731/B9T1305 control hybridization signals were observed in 37/200 nuclei, which exceeds the normal range (up to 3.1%) established for this probe in the Clinical Genomics Laboratory at [facility]. 2) FISH evaluation for a WSBR6Z0::RUNX1 rearrangement was performed on nuclei with the LSI FBPM5U4::RUNX1 Dual Color, Dual Fusion Translocation Probe ([employer] for IPZN7S9(ETO) at 8q22 and RUNX1(AML1) at 21q22 and is interpreted as ABNORMAL, although an QYWI9R9::RUNX1 rearrangement was not detected. ??An abnormal hybridization pattern consisting of two PIBY2Z6 hybridization signals and three RUNX1 hybridization signals was observed in 17/200 nuclei, indicative of trisomy for the corresponding region on chromosome 21. ??This value exceeds the normal range (up to 1%) established for this probe in the Clinical Genomics Laboratory at [facility]. ?? 3) FISH evaluation for a BCR::ABL1 rearrangement was performed on nuclei with the LSI BCR::ABL1 Tricolor, Dual Fusion Translocation Probe ([employer] for ASS1/ABL1 at 9q34 and BCR [...] probe in the Clinical Genomics Laboratory at [facility]. 4) FISH evaluation for a 7q deletion was performed on nuclei with the LSI F7S918/D7Z1 Dual Color Probe ([employer] for U5N734 at 7q31 and the control D7Z1 at 7p11.1-q11.1 and is interpreted as NORMAL. ??Two D4S634 hybridization signals and two D7Z1 control hybridization signals were observed in 200/200 nuclei, which is within the normal range established for this probe set in the Clinical Genomics Laboratory at [facility]. ??Up to 1% of cells in normal samples can show an apparent 7q deletion using this probe. ??A normal F5Y304 FISH finding can result from the absence of a 7q deletion, from a 7q deletion that does not involve the region to which this probe hybridizes or from an insufficient number of neoplastic cells in the specimen. 5) FISH evaluation for an KMT2A (MLL) rearrangement was performed on nuclei with the LSI KMT2A Dual Color, Break Apart Rearrangement Probe ([facility] at 11q23 and is interpreted as NORMAL. ??No rearrangement was observed in 200/200 nuclei, which is within the normal range established for this probe in the Clinical Genomics Laboratory at [facility]. ??Up to 1% of cells in normal [...] Fusion Translocation Probe ([employer] for PML at 15q24 and GRANT at 17q21 and is interpreted as NORMAL. ??No rearrangement was observed in 190/200 nuclei, which is within the normal range established for this probe in the Clinical Genomics Laboratory at [facility]. Variant signal pattern was observed in 10/200 [...] probe in the Clinical Genomics Laboratory at [facility]. ??Up to 2% of cells in normal [...] developed and its performance characteristics determined by [facility]. It has not been cleared or approved by the FDA. The laboratory is regulated under CLIA as qualified to perform high-complexity testing. This test is used for clinical purposes. It should not be regarded as investigational or for research. Chromosome analysis and Fluorescence In Situ Hybridization (FISH) analysis are performed using the [employer] Cytovision Imaging System. Report Electronically Reviewed and Signed Out By Asim Bear, PhD, FACDate Reported: ??03/31/2024ssistant Professor, Division of Genomic & Molecular Pathology REFLEX FLUORESCENCE IN-SITU HYBRIDIZATION [FISH] Karyotype: nuc bree(MECOMx2)[200] Diagnosis: ?? FISH FINDINGS: ?NO EVIDENCE OF MECOM (3q) REARRANGEMENT INTERPRETATION: FISH evaluation for an EVI1(MECOM) rearrangement was performed on nuclei with the BETHANY Dual Color, Break Apart Rearrangement Probe ([employer]) at 3q26 and is interpreted as NORMAL. ??No rearrangement was observed in 199/200 nuclei, which is within the normal range established for this probe in the Clinical Genomics Laboratory at [facility]. ??Up to 2% of cells in normal [...] developed and its performance characteristics determined by [facility]. It has not been cleared or approved by the FDA. The laboratory is regulated under CLIA as qualified to perform high-complexity testing. This test is used for clinical purposes. It should not be regarded as investigational or for research. Chromosome analysis and Fluorescence In Situ Hybridization (FISH) analysis are performed using the [employer] Cytovision Imaging System. Report Electronically Reviewed and Signed Out By Margaret Ratliff, PhD Date Reported: ??04/05/2024ssistant Professor, Division of Genomic & Molecular Pathology us Evan Mai MD LAB GENETIC TESTING Final Resu lt [facility] - CYTOGENETICS [address] [place] [address] * ChromoSeq tracking order Bone marrow (03/27/2024 2:13 PM CIGARETTE MACHIN[employer] MECHANIC) ChromoSeq Tracking Order Received Bone marrow 03/27/2024 2:13 PM CIGARETTE MACHINES MECHANIC 03/27/2024 5:26 PM CIGARETTE MACHINES MECHANIC Narrative [facility] - 03/28/2024 9:48 AM CIGARETTE MACHINES MECHANIC Specimen type (select one):->Marrow Evan Mai MD LAB BODY FLUIDS AND STOOLS ORD ERABLES Final [facility] One [facility] Department [place] [address] * ChromoSeq - Heme Genetic Profiling (WGS) with interpretation Bone marrow (03/27/2024 2:13 PM CIGARETTE MACHINES MECHANIC) Bone marrow (Bone Marrow Biopsy) 03/27/2024 2:13 PM CIGARETTE MACHINES MECHANIC 03/28/2024 9:45 AM CIGARETTE MACHINES MECHANIC Narrative [facility] - CYTOGENETICS - 04/11/2024 10:20 PM CIGARETTE MACHINES MECHANIC [facility] [address] [place] [address] Final Report Patient Name: KELLEE PALACIOS SR. Address: [address] [place] [address] Gender: M : 1960 (Age: 63) Accessioned: 03/28/2024 Taken: 03/27/2024 Received: 03/28/2024 Physician(s): Evan Morataya MD Service: [facility] Location: Hospital #: [id number] Patient Type: [facility] ChromoSeq Molecular DiagnosticsReported:04/11/2024 Tissue type: Bone Marrow [...] identified, consistent with the corresponding cytogenetic studies ([id number]) and a complex karyotype. In addition, a [...] Mai MD LAB PATHOLOGY ORDERABLES Final Result [facility] - CYTOGENETICS [address] [place] [address] * MyeloSeq tracking order Bone marrow (03/27/2024 2:13 PM CIGARETTE MACHINES MECHANIC) MyeloSeq Received Bone marrow 03/27/2024 2:13 PM CIGARETTE MACHINES MECHANIC 03/27/2024 5:26 PM CIGARETTE MACHINES MECHANIC Narrative [facility] - 03/28/2024 9:48 AM CIGARETTE MACHINES MECHANIC Specimen type (select one):->Marrow us Evan Mai MD LAB BODY FLUIDS AND STOOLS ORD ERABLES Final Result [facility] One [facility] Department [place] [address] * Diagnosis MyeloSeq Heme NGS Panel with Interpretation Bone marrow (03/27/2024 2:13 PM CIGARETTE MACHINES MECHANIC) Bone marrow (Bone Marrow Biopsy) 03/27/2024 2:13 PM CIGARETTE MACHINES MECHANIC 03/28/2024 9:45 AM C[employer]ETTE [employer]ACHIN[employer] MECH[employer]IC Narrative [facility] DIAGNOSTIC LAB - CYTOGENETICS - 04/12/2024 10:35 PM CIGARETTE MACHINES MECHANIC [facility] Pathology Services [address] [place] [address] Final Report Patient Name: KELLEE PALACIOS SR. Address: [address] [place] [address] ??62 Gender: M : 1960 (Age: 63) Accessioned: 03/28/2024 Taken: 03/27/2024 Received: 03/28/2024 Physician(s): Evan Morataya MD Service: [facility] Location: Hospital #: [id number] Patient Type: [facility] MyeloSeq Molecular DiagnosticsReported:04/12/2024 Varients Detected: ? GENE [...] presents for evaluation. Corresponding bone marrow biopsy ([id number]) shows a markedly hypercellular marrow with 5% blasts and megakaryocytic dysplasia. Corresponding cytogenetic studies ([id number]) show a complex karyotype. Specimen site: Bone marrow Variant Detail: ? Gene ? Location (GR38) ? Reference allele ? Variant allele ? Transcript:Coding change ? Population Frequency* ? TP53 ? [id number] ? C ? T ? [id number]:c.517G>A ? none*The population allele frequency represents the [...] the CLIA Licensed Environment laboratory at the [facility] at [facility] ([facility], CLIA #[id number], CAP #[id number]), Dr. Sammy Johnson MD, PhD, FCAP, Supervisor [employer]. [address] [facility], [address] [place] [id number] . The [facility] laboratory is regulated under CLIA as certified to perform high-complexity testing. Interpretation of sequencing results and case sign out is performed by Pathology and Immunology faculty in the Division of Genomic and Molecular Pathology (-[facility], CLIA #[id number], CAP #[id number]) Dr. Sujatha Littlejohn Ph.D., Supervisor [employer]. [facility], [facility], [address], [place] [id number] [phone] . The [facility] is regulated [...] 30GBases of sequencing data generated on an [employer]. This test has been validated according to CAP guidelines for the detection of single nucleotide variants (SNVs) and indels (max validated size 117bp). This assay has two limits of detection: for new variants (not previously reported by [employer]) sensitivity is limited to 2% VAF; for [...] Such information and correlations are subject to meter changes records clerk time in response to future scientific and [...] of the Report may be adversely impacted. is not obligated to notify you of [...] patient's clinical manifestations. The Report provided by [facility] is provided on an IS basis. makes no representation or warranty of any kind, expressed or implied, regarding the Report. In no event shall be liable for any actual damages, indirect [...] Mai MD LAB PATHOLOGY ORDERABLES Final Result Performing Organization Address City/[facility]/ZIP Co de Phone Number [facility] DIAG[facility]IC [facility] - CYTOGENETICS [address] [place] [address] * Flow Leukemia/Lymphoma Bone marrow (03/27/2024 2:13 PM CIGARETTE MACHINES MECHANIC) Pathologist [facility] Kaufman Stain Test Completed Leukemia/Lymp johana Result See separate Surgical Pathology report. [facility] Bone marrow 03/27/2024 2:13 PM CIGARETTE MACHINES MECHANIC 03/27/2024 6:37 PM CIGARETTE MACHINES MECHANIC Narrative [facility] - 03/28/2024 8:22 AM CIGARETTE MACHINES MECHANIC Tube information: Green top (Sodium Heparin) Evan Mai MD LAB PATHOLOGY ORDERABLES Final Result Performing Organization Address [facility] Co de Phone Number [facility] Department [place] [address] * Hematologic Molecular Algorithm Bone marrow (03/27/2024 2:13 PM CIGARETTE MACHINES MECHANIC) Pathologist [facility] Heme Molecular Algorithm Received Bone marrow 03/27/2024 2:13 PM CIGARETTE MACHINES MECHANIC 03/28/2024 9:29 AM CIGARETTE MACHINES MECHANIC Narrative [facility] - 04/05/2024 11:34 AM CIGARETTE MACHINES MECHANIC Tube information: [place] top Clinical History / Treatment Plan:->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 Select diagnosis - - Appropriate molecular tests will be performed based on histopathological diagnosis.->AML 04/02/2024 - HMA complete, no additional testing indicated. Evan Mai MD LAB BODY FLUIDS AND STOOLS ORD ERABLES Final Result Performing Organization Address City/[facility] Co de Phone Number [facility] [place] Department [place] [address] * Surgical pathology (03/27/2024 2:13 PM CIGARETTE MACHINES MECHANIC) Tissue (Bone Marrow Biopsy) 03/27/2024 2:13 PM CIGARETTE MACHINES MECHANIC 03/27/2024 5:22 PM CIGARETTE MACHINES MECHANIC Narrative PATHOLOGY [facility] - 03/29/2024 2:40 PM CIGARETTE MACHINES MECHANIC EPIC results best viewed via link to PDF [facility]i [facility] [place] [address] Note to Patients: This report may contain a detailed description of human tissue sent by a health care provider to the laboratory for pathologic evaluation. The content of this report is essential for diagnosis and may provide important critical findings. This information may be unfamiliar to patients to review without a medical professional present. It is advised that the patient review this report in the presence of a health care provider who can answer questions and explain the details. SURGICAL PATHOLOGY REPORT FINAL WITH ADDENDUM Patient Name: ?? KELLEE PALACIOSWes ABBOTT Gender: ??M : ??1960 (Age: 63) Address: ??[address] [place] [address] ??[id number] Hospital #: ??[id number] Taken:03/27/2024 Received:03/27/2024 Reported: 03/29/2024 Patient Type: [facility] MED ONC ?? Service: Laboratory Location: Physician(s): ??Evan Morataya MD Diagnosis: Bone marrow, left posterior iliac crest, core biopsy, clot, and aspirate: - ??Markedly hypercellular marrow with 5% blasts and megakaryocytic dysplasia (see comment) - ??Positive p53 immunostaining - ??Aspicular and hemodilute aspirate specimen. ?? anri/03/29/2024 10:17 By this signature, I attest that the above diagnosis is based upon my personal examination of the slides(and/or other material indicated in the diagnosis). Tunde Salinas M.D. Report Electronically Reviewed and Signed Out By ??Tunde Salinas M.D. 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 Correlation with MyeloSeq/ChromoSeq is required for definitive classification. ?? For details on the peripheral blood smear (if submitted), bone marrow aspirate, and core biopsy, please see the attached synoptic report. If applicable, correlation with concurrent flow cytometry (Addenda/Procedures below), cytogenetics/FISH, and molecular studies is suggested for full evaluation. Microscopic Description and Comment: Microscopic examination substantiates the above cited diagnosis. The core biopsy shows markedly hypercellular marrow with megakaryocytic hyperplasia and dysplasia. The aspirate smear is aspicular and hemodilute, limiting the morphologic evaluation of dysplasia. Immunohistochemistry was performed on the core biopsy (with appropriately reactive controls) and demonstrate the following: CD34 higlights increased blasts (~5-10% of marrow cellularity). CD117 highlights few immature elements (~30% of marrow cellularity). E-cadherin highlights few erythroid elements. CD61 highlights increased and dysplastic megakaryocytes. p53 highlights ~30% of cells. Note: p53 immunohistochemistry is a rapid surrogate marker for TP53 gene mutation status. ??Studies performed in our laboratory demonstrate that TP53 staining in => 20% of cells has an 86% sensitivity and 90% specificity for detection of TP53 mutation(s). It is recommended that immunohistochemical results be confirmed by DNA sequencing. Jayde Santiago M.D. 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 ?? Operative procedure: ??Bone marrow biopsy. Specimen(s) Received: A: Bone marrow biopsy, left posterior iliac crest B: Bone Marrow Clot - BJ C: Bone marrow, left aspirate for flow cytometry Gross Description: Received in two formalin jars labeled with the patient's identifiers. A. ??Received in formalin, labeled LPIC core and consists of two red cores of bone with attached hemorrhagic material measuring 0.8 and 1.4 cm each in length by 0.2 cm in diameter. ?? Labeled A1. ??EDTA decalcification.. Jar 0. B. ??Received in formalin, labeled LPIC clot and consists of a 2.3 x 1.7 x 0.8 cm fragment of ??hemorrhagic material. ?? Labeled B1. Jar 0. ?? sxst/03/27/2024 17:59 PA(s): Bronwyn Gentile ? CBC: ?Date: 03/27/2025 ?WBCs: 1.7x10^3/mcl ?Hemoglobin: 7.9g/dl ?Hematocrit: 24.2% ?Platelets: 21x10^3/mcl ?Mean corpuscular volume (MCV): 86.5fl ?Red cell distribution width (RDW-CV): 18.4% ?Neutrophils, absolute: 0.5 K/cumm ?Lymphocytes, absolute: 0.9 K/cumm ?Monocytes, absolute: 0.0 K/cumm ?Eosinophils, absolute: 0.0 K/cumm ?Basophils, absolute: 0.0 K/cumm ?Metamyelocyte pct 3.0%, Myelocyte pct 1.0%, Variant lymph pct 10.0% ?Neutrophils: 31.0% ?Lymphocytes: 54.0% ?Monocytes: 0.0% ?Eosinophils: 1.0% ?Basophils: 1.0% ? Peripheral blood smear (Kaufman-Giemsa): ?The peripheral blood morphology reflects the CBC values. ? Bone marrow aspirate smear (Kaufman-Giemsa stain): ? Quality: ?Dilute ? Spicules: ?None ? Marrow cellularity: ?Not evaluable ? Myeloid maturation: ?Normal ? Erythroid maturation: ?Not evaluable ? Myeloid/Erythroid Ratio: ?N/A ? Megakaryocyte number: ?Not evaluable ? Megakaryocytic maturation: ?Not evaluable ? Lymphocytes: ?Normal ? Plasma cells: ?Not evaluable ? Iron: ?Aspicular aspirate insufficient for interpretation/non-contributory ? Differential count: ?Total # of Cells Counted:100 ?Blasts: 1 ?Promyelocytes: 0 ?Myelocytes+Metamyelocytes:8 ?Bands+Neutrophils:30 ?Eosinophils: 0 ?Basophils: 0 ?Plasma cells: 0 ?Lymphocytes: 52 ?Monocytes: 6 ?Erythroids: 3 ?The differential count may not be plastic products sales representative of marrow elements ? Bone marrow core biopsy (decalcified, H&E and Leder stains): ?Left, iliac crest ? Quality: ?Adequate ? Cellularity: ?>90% ? Myeloid maturation: ?Left-shifted ? Erythroid maturation: ?Sparse maturing forms ? The Leder stain shows that the Myeloid/Erythroid Ratio is: ?N/A ? Megakaryocyte number: ?Increased ? Megakaryocytic maturation: ?Clustered, Abnormal lobation ? The Leder stain is used to assess for lymphoid aggregates: ?None ? Plasma cells: ?Not evaluable ? Reticulin and Trichrome stains show: ?Moderate fibrosis (MF-2) ? CLOT SECTION: ?The bone marrow clot section including Leder and H&E stains are: ?Consist of clotted blood with minimal evaluable marrow ? By this signature, I attest that the above diagnosis is based upon my personal examination of the slides(and/or other material). Addenda/Procedures Flow Cytometry Ordered:03/27/2024Status:Signed OutFlow Cytometry Complete:03/28/2024y:Tunde Salinas M.D.Flow Cytometry Signed Out: 03/29/2024 Diagnosis Bone marrow, left aspirate, flow cytometry: - ??No increase in blasts, clonal B-cell or aberrant T-cell populations detected. Comment Specimen quality: paucicellular Flow cytometry analysis shows the CD45 dim-gated events are 3% of overall cellularity of the specimen, with a subset positive for expression of CD34 and CD117. ??Monocyte-gated events account for 0.2% of overall cellularity and express CD13, CD33, CD64, and CD14. ??Lymphocyte-gated events account for 74% of the overall cellularity and include a small polytypic CD19+CD20+ B-cell population (9% of lymphocytes) with no significant co-expression of CD5 or CD10. ??CD3+ T-cells (comprising 76% of lymphocytes) show no significant loss of davis T-cell antigens and have a CD4 to CD8 ratio within normal limits. There is a small population of CD56+ events (13% of lymphocytes) consistent with natural killer cells. There is no overt increase in CD38+ plasma cells. ?? Correlation with morphology (if submitted), clinical and laboratory data is recommended. A malignant process cannot be excluded solely on the basis of this assay. A Kaufman-Giemsa stained slide from the flow cytometry specimen was examined for internal air quality instrument specialist purposes. Flow cytometry was performed using antibodies to the following cellular antigens: CD45, CD34, CD19, CD20, [place], Lambda, CD10, CD5, CD200, CD38, CD2, CD3, CD4, CD7, CD8, CD56, TCR-GD, CD16, CD13, CD14, CD64, HLA-DR, CD11b, CD15, CD123, CD117, CD33. Total antigens analyzed: 27 ?? By this signature, I attest that the above diagnosis is based upon my personal examination of the slides(and/or other material indicated in the diagnosis). Tunde Salinas M.D.Report Electronically Reviewed and Signed Out By ??Tunde Salinas M.D. ??03/29/2024 14:37:10Jayde Santiago M.D. ?? The performance characteristics of some immunohistochemical stains, fluorescence in-situ hybridization tests and immunophenotyping by flow cytometry cited in this report (if any) were determined by the Surgical Pathology and Flow Cytometry Departments at [facility] as part of an ongoing air quality manager program and in compliance with federally mandated regulations drawn from the Clinical Laboratory Improvement Act of 1988 (CLIA '88). ??Some of these tests rely on the use of analyte specific reagents and are subject to specific labeling requirements by the US Food and Drug Administration. ??Such diagnostic tests may only be performed in a facility that is certified by the Department of Health and Human Services as a high complexity laboratory under CLIA '88. ??The FDA has determined that such clearance or approval is not necessary. ??This test is used for clinical purposes. ??It should not be regarded as investigational or for research. ??Nevertheless, federal rules concerning the medical use of analyte specific reagents require that the following disclaimer be attached to the report: This test was developed and its performance characteristics determined by the Surgical Pathology and Flow Cytometry Departments of [facility]. ??It has not been cleared or approved by the U. S. Food and Drug Administration. IMAGES AND SCANNED DOCUMENTS, IF INCLUDED, ONLY VIEWABLE IN PDF VERSION OF REPORT us Evan Mai MD LAB PATHOLOGY ORDERABLES Final Result PATHOLOGY [facility] 3rd Floor [place], [place] [phone] * eGFR (03/27/2024 1:23 PM CIGARETTE MACHINES MECHANIC) eGFR >90 >=60 mL/min/1. 73 m2 Comment: Interpretive Data Reference Interval Normal ?>/= 90 mL/min/1.73m2 Mildly decreased* ? 60 - 89 mL/min/1.73m2 Mildly to moderately decreased ?45 - 59 mL/min/1.73m2 Moderately to severely decreased ??30 - 44 mL/min/1.73m2 Severely decreased ?15 - 29 mL/min/1.73m2 Kidney Failure ?< 15 ??mL/min/1.73m2 *Relative to young adult level Estimated glomerular filtration rate is determined by the 2020 CKD-EPI equation recommended by the National Kidney Foundation (A Unifying Approach to GFR Estimation: Recommendations of the NKF-ASK Task Force on Reassessing the Inclusion of Race in Diagnosing Kidney Disease, JASN 2020). The CKD-EPI equation should not be used for patients with unstable renal function and has not been validated in children and those over 70. Current interpretive data was last reviewed 2021. Blood 03/27/2024 1:23 PM CIGARETTE MACHINES MECHANIC 03/27/2024 1:36 PM CIGARETTE MACHINES MECHANIC us Evan Mai MD LAB BLOOD ORDERABLES Final Res ult [facility] One [facility] Department [place] [address] * (ABNORMAL) CBC with auto differential (03/27/2024 1:23 PM CIGARETTE MACHINES MECHANIC) Pathologist [facility] WBC 1.7(L) 3.8 - 9.9 K/cumm Comment:Testing performed by : [facility], [address] [place] [phone] Hgb 7.9(L) 13.0 - 17.5 g/dL CERNER BJ Comment:Testing performed by : [facility] Heme Lab, [address] [place] [address] Hct 24.2(L) 38.9 - 50.3 % CERNER BJ Comment:Testing performed by : [facility] Heme [facility], [address] [place], [place] [phone] Plt 21(L) 150 - 400 K/cumm CERNER BJ Comment:Testing performed by : [facility]e [facility], [address] [place] [address] MPV 8.2 6.8 - 10.4 fL CERNER BJ Comment:Testing performed by : [facility], [address] [place] [address] RBC 2.80(L) 4.30 - 5.80 M/cumm CERNER BJ Comment:Testing performed by : [facility], [address] [place] [address] MCV 86.5 81.3 - 96.4 fL CERNER BJ Comment:Testing performed by : [facility], [address] [place] [address] MCH 28.3 27.1 - 33.3 pg CERNER BJ Comment:Testing performed by : [facility]e [facility], [address] [place] [address] MCHC 32.7 32.3 - 35.7 g/dL CERNER BJ Comment:Testing performed by : [facility], [address] [place] [address] RDW CV 18.4(H) 11.1 - 14.9 % CERNER BJ Comment:Testing performed by : [facility]e [facility], [address] [place] [address] NRBC abs 0.00 0.00 - 0.01 K/cumm CERNER BJ Comment:Testing performed by : [facility]e [facility], [address] [place] [address] Blood 03/27/2024 1:23 PM CIGARETTE MACHINES MECHANIC 03/27/2024 1:32 PM CIGARETTE MACHINES MECHANIC us Evan Mai MD LAB BLOOD ORDERABLES Edited Re bigg - Final CAITLIN ANDERSON One [facility] Department [place] [address] * (ABNORMAL) Manual Differential (03/27/2024 1:23 PM CIGARETTE MACHINES MECHANIC) Cells Counted 147 Comment:Testing performed by : [facility] Heme Lab, [address] [place] [phone] Neutrophil abs 0.5(L) 1.5 - 6.5 K/cumm CERNER JUSTIN Comment:Testing performed by : [facility]e [facility], [address] [place] [phone] Lymphocyte abs 0.9 0.8 - 3.3 K/cumm CAITLIN ANDERSON Comment:Testing performed by : [facility]e [facility], [address] [place] [phone] Monocyte abs 0.0(L) 0.2 - 0.8 K/cumm CERRAMAN ANDERSON Comment:Testing performed by : [facility]e [facility], [address] [place] [phone] Eosinophil abs 0.0 0.0 - 0.5 K/cumm CAITLIN ANDERSON Comment:Testing performed by : [facility]e [facility], [address] [place] [phone] Basophil abs 0.0 0.0 - 0.1 K/cumm CAITLIN ANDERSON Comment:Testing performed by : [facility]e [facility], [address] [place] [phone] Neutrophil pct 31.0 % CERRAMAN ANDERSON Comment: Interpretive Data Percent cell count reference ranges are not reported, since discordance with absolute values may lead to misinterpretation of CBC data. Current Interpretive Data was last revised on 2017. Testing performed by: [facility] Heme Lab, [address] [place] [phone] Lymphocyte pct 54.0 % CERRAMAN ANDERSON Comment: Interpretive Data Percent cell count reference ranges are not reported, since discordance with absolute values may lead to misinterpretation of CBC data. Current Interpretive Data was last revised on 2017. Testing performed by: [facility] Heme Lab, [address] [place] [phone] Monocyte pct 0.0 % [facility] Comment: Interpretive Data Percent cell count reference ranges are not reported, since discordance with absolute values may lead to misinterpretation of CBC data. Current Interpretive Data was last revised on 2017. Testing performed by: [facility] Heme Lab, [address] [place], [place] [phone] Eosinophil pct 1.0 % [facility] Comment: Interpretive Data Percent cell count reference ranges are not reported, since discordance with absolute values may lead to misinterpretation of CBC data. Current Interpretive Data was last revised on 2017. Testing performed by: [facility], [address] [place], [place] [phone] Basophil pct 1.0 % [facility]ER [facility] Comment: Interpretive Data Percent cell count reference ranges are not reported, since discordance with absolute values may lead to misinterpretation of CBC data. Current Interpretive Data was last revised on 2017. Testing performed by: [facility]e [facility], [address] [place] [phone] Metamyelocyte pct 3.0 % [facility]ER [facility] Comment:Testing performed by : [facility], [address] [place] [phone] Myelocyte pct 1.0 % [facility] Comment:Testing performed by : [facility], [address] [place] [phone] Variant lymph pct 10.0 % [facility] Comment:Testing performed by : [facility], [address] [place] [phone] Smudge cells, qual Present(A ) [facility] Comment:Testing performed by : [facility], [address] [place], [place] [phone] Polychromasia 1+(A) [facility] Comment:Testing performed by : [facility], [address] [place], [place] [phone] Hypochromasia 1+(A) CAITLIN ANDERSON Comment:Testing performed by : [facility], [address] [place], [place] [phone] Anisocytosis 1+(A) [facility] Comment:Testing performed by : [facility], [address] [place], [place] [phone] Poikilocytosis 1+(A) [facility] Comment:Testing performed by : [facility], [address] [place] [phone] Microcytes 1+(A) [facility] Comment:Testing performed by : [facility]e Lab, [address] [place], [place] [phone] Macrocytes 1+(A) [facility] Comment:Testing performed by : [facility], [address] [place], [place] [phone] Schistocytes 1+(A) [facility] Comment:Testing performed by : [facility], [address] [place], [place] [phone] Elliptocytes 1+(A) [facility] Comment:Testing performed by : [facility], [address] [place], [place] [phone] Target cells 1+(A) [facility] Comment:Testing performed by : [facility], [address] [place], [place] [phone] Platelet estimate Decreased (A) [facility] Comment:Testing performed by : [facility], [address] [place], [place] [phone] Blood 03/27/2024 1:23 PM CIGARETTE MACHINES MECHANIC 03/27/2024 1:32 PM CIGARETTE MACHINES MECHANIC us Evan Mai MD LAB BLOOD ORDERABLES Final Res ult CAITLIN ANDERSON One [facility] Department [place] [address] * (ABNORMAL) Comprehensive metabolic panel (03/27/2024 1:23 PM CIGARETTE MACHINES MECHANIC) Sodium 132(L) 135 - 145 mmol/L Potassium, pl 3.3 3.3 - 4.9 mmol/L [facility] Chloride 102 97 - 110 mmol/L [facility] CO2 25 22 - 32 mmol/L [facility] Anion gap 5 2 - 15 mmol/L [facility] BUN 20 6 - 25 mg/dL [facility] Creatinine 0.62(L) 0.80 - 1.30 mg/dL [facility] Glucose 105 70 - 199 mg/dL [facility] Comment: Interpretive Data Fasting glucose >/= 126 mg/dl is diagnostic for diabetes. ?? Fasting is defined as no caloric intake for at least 8 hours. Fasting glucose between 100 mg/dl to 125 mg/dl is diagnostic of prediabetes. In a patient with classic symptoms of hyperglycemia or hyperglycemic crisis, a random glucose >/= 200 mg/dl is diagnostic for diabetes. In the absence of unequivocal hyperglycemia, results should be confirmed by repeat testing. The classification and Diagnosis of Diabetes Diabetes Care 2021; 46: S19-S40. Current interpretive data was last revised 2022. Calcium 8.4(L) 8.5 - 10.3 mg/dL [facility] Bilirubin, total 0.6 0.1 - 1.2 mg/dL [facility] Protein, pl 7.0 6.5 - 8.5 g/dL [facility] Albumin 3.0(L) 3.5 - 5.0 g/dL [facility] Alk phos 80 40 - 130 Units/L [facility] ALT 7 7 - 55 Units/L [facility] AST 13 10 - 50 Units/L [facility] Blood 03/27/2024 1:23 PM [employer] 03/27/2024 1:36 PM [employer] us Evan Mai MD LAB BLOOD ORDERABLES Final Res ult [facility] Department [place] [address] * Transfuse RBC (03/21/2024 8:18 PM [employer]) Blood us Evan Mai MD BLOOD TRANSFUSION ORDERABLES F inal Result * Transfuse RBC (03/21/2024 6:29 PM [employer]) Blood us Evan Mai MD BLOOD TRANSFUSION ORDERABLES F inal Result * Check Sample (03/21/2024 2:48 PM [employer]) ABO Rh A Positive [facility] HCLL OTHER 03/21/2024 2:48 PM [employer] 03/21/2024 3:43 PM [employer] us Evan Mai MD LAB BLOOD ORDERABLES Final Res ult Performing Organization Address [facility] Co de Phone Number [facility] [place] [address] [facility] * Prepare RBC: 2 Units (03/21/2024 2:46 PM [employer]) Product code [id number] [facility] Unit Number [id number]- T [facility] Product Blood Type APOS [facility] Dispense Status PRESUMED TRANSFUSED [facility] Product code [id number] Unit Number [id number]- I [facility] Product Blood Type APOS [facility] Dispense Status PRESUMED TRANSFUSED [facility] Blood 03/21/2024 2:46 PM [employer] 03/21/2024 2:45 PM [employer] Narrative [facility] - 03/22/2024 12:55 AM [employer] Are special requirements needed? (All products are leukoreduced and CMV- safe)->Yes us Evan Mai MD BLOOD BANK PRODUCT ORDERABLES Final Result Performing Organization Address [facility] Co de Phone Number [facility] [place] [address] * (ABNORMAL) Differential, auto (03/21/2024 1:05 PM [employer]) Neutrophil abs 0.3(L) 1.5 - 6.5 K/cumm Comment:Testing performed by : [facility], [address] [place], [place] [phone] Lymphocyte abs 0.4(L) 0.8 - 3.3 K/cumm [facility] Comment:Testing performed by : [facility], [address] [place], [place] [phone] Monocyte abs 0.1(L) 0.2 - 0.8 K/cumm [facility] Comment:Testing performed by : [facility], [address] [place], [place] [id number] Eosinophil abs 0.0 0.0 - 0.5 K/cumm [facility] Comment:Testing performed by : [facility], [address] [place], [place] [phone] Basophil abs 0.0 0.0 - 0.1 K/cumm [facility] Comment:Testing performed by : [facility], [address] [place], [place] [phone] Neutrophil pct 36.7 % [facility] Comment: Interpretive Data Percent cell count reference ranges are not reported, since discordance with absolute values may lead to misinterpretation of CBC data. Current Interpretive Data was last revised on 2017. Testing performed by: [facility], [address] [place] [phone] Lymphocyte pct 52.1 % [facility] Comment: Interpretive Data Percent cell count reference ranges are not reported, since discordance with absolute values may lead to misinterpretation of CBC data. Current Interpretive Data was last revised on 2017. Testing performed by: [facility], [address] [place] [phone] Monocyte pct 9.0 % [facility] Comment: Interpretive Data Percent cell count reference ranges are not reported, since discordance with absolute values may lead to misinterpretation of CBC data. Current Interpretive Data was last revised on 2017. Testing performed by: [facility], [address] [place], [place] [phone] Eosinophil pct 0.1 % [facility] Comment: Interpretive Data Percent cell count reference ranges are not reported, since discordance with absolute values may lead to misinterpretation of CBC data. Current Interpretive Data was last revised on 2017. Testing performed by: [facility], [address] [place] [phone] Basophil pct 2.1 % [facility] Comment: Interpretive Data Percent cell count reference ranges are not reported, since discordance with absolute values may lead to misinterpretation of CBC data. Current Interpretive Data was last revised on 2017. Testing performed by: [facility], [address] [place] [phone] Blood 03/21/2024 1:05 PM [employer] 03/21/2024 1:06 PM [employer] us Evan Mai MD LAB BLOOD ORDERABLES Final Res ult [facility] Department [place] [address] * (ABNORMAL) CBC with auto differential (03/21/2024 1:05 PM [employer]) WBC 0.7(L) 3.8 - 9.9 K/cumm Comment:Testing performed by : [facility], [address] [place] [phone] Hgb 6.5(L) 13.0 - 17.5 g/dL [facility] Comment: Critical Result HGB:6.5 Called to and read back by: GERMAINE ADAMS RN at: 03/21/2024 13:32:52 by:DAVY. Testing performed by: [facility], [address] [place] [phone] Hct 19.8(L) 38.9 - 50.3 % [facility] ANDERSON Comment:Testing performed by : [facility], [address] [place] [phone] Plt 45(L) 150 - 400 K/cumm [facility] ANDERSON Comment:Testing performed by : [facility], [address] [place] [address] MPV 8.3 6.8 - 10.4 fL [facility] ANDERSON Comment:Testing performed by : [facility], [address] [place] [address] RBC 2.31(L) 4.30 - 5.80 M/cumm [facility] ANDERSON Comment:Testing performed by : [facility], [address] [place], [place] [phone] MCV 85.7 81.3 - 96.4 fL [facility] ANDERSON Comment:Testing performed by : [facility], [address] [place], [place] [phone] MCH 28.1 27.1 - 33.3 pg [facility]ITLIN ANDERSON Comment:Testing performed by : [facility], [address] [place] [address] MCHC 32.7 32.3 - 35.7 g/dL [facility] ANDERSON Comment:Testing performed by : [facility], [address] [place] [address] RDW CV 20.4(H) 11.1 - 14.9 % CAITLIN ANDERSON Comment:Testing performed by : [facility], [address] [place] [address] NRBC abs 0.00 0.00 - 0.01 K/cumm [facility] AND[facility] Comment:Testing performed by : [facility], [address] [place] [address] Blood 03/21/2024 1:05 PM [employer] 03/21/2024 1:06 PM [employer] us Evan Mai MD LAB BLOOD ORDERABLES Final Res ult [facility] Department [place] [address] * eGFR (03/21/2024 12:59 PM [employer]) eGFR >90 >=60 mL/min/1. 73 m2 Comment: Interpretive Data Reference Interval Normal ?>/= 90 mL/min/1.73m2 Mildly decreased* ? 60 - 89 mL/min/1.73m2 Mildly to moderately decreased ?45 - 59 mL/min/1.73m2 Moderately to severely decreased ??30 - 44 mL/min/1.73m2 Severely decreased ?15 - 29 mL/min/1.73m2 Kidney Failure ?< 15 ??mL/min/1.73m2 *Relative to young adult level Estimated glomerular filtration rate is determined by the 2020 CKD-EPI equation recommended by the National Kid[employer] (A Unifying Approach to GFR Estimation: Recommendations of the NKF-ASK Task Force on Reassessing the Inclusion of Race in Diagnosing Kidney Disease, JASN 2020). The CKD-EPI equation should not be used for patients with unstable renal function and has not been validated in children and those over 70. Current interpretive data was last reviewed 2021. Blood 03/21/2024 12:5 9 PM [employer] 03/21/2024 1:11 PM [employer] us Evan Mai MD LAB BLOOD ORDERABLES Final Res ult Performing Organization Address City/State/[facility] Co ca Phone Number [facility] Department [place] [address] * (ABNORMAL) CMV, IgG Blood (03/21/2024 12:59 PM [employer]) CMV IgG Positive( A) Negative Comment: Interpretive Data Negative - Individuals with negative CMV IgG results are presumed to not have had prior exposure or infection with CMV and are, therefore, considered susceptible to primary infection. Equivocal - Equivocal results may occur during acute infection or may be due to nonspecific binding reactions. Submit an additional sample for testing if clinically indicated. Positive - Indicates presence of detectable CMV IgG antibody. Results indicate past or recent CMV infection. Blood 03/21/2024 12:5 9 PM [employer] 03/21/2024 2:17 PM [employer] us Evan Mai MD LAB MICROBIOLOGY - GENERAL ORD ERABLES Final Result Performing Organization Address City/[facility]/ZIP Co de Phone Number [facility] [place] [address] * Type and screen (03/21/2024 12:59 PM [employer]) ABO Rh A Positive Adalgisa, indirect Negative [facility] Blood 03/21/2024 12:5 9 PM [employer] 03/21/2024 1:29 PM [employer] Narrative [facility] - 03/21/2024 2:27 PM [employer] Has the patient had Daratumumab or Isatuximab in the past 6 months?->Unknown Evan Mai MD LAB BLOOD BANK TEST ORDERABLES Final Result Performing Organization Address City/[facility]/ZIP Co de Phone Number [facility] [place] [address] * Uric acid (03/21/2024 12:59 PM [employer]) Uric acid 4.7 3.0 - 8.0 mg/dL Blood 03/21/2024 12:5 9 PM [employer] 03/21/2024 1:11 PM [employer] Evan Mai MD LAB BLOOD ORDERABLES Final Res ult [facility] [place] [address] * Phosphorus (03/21/2024 12:59 PM [employer]) Phosphorus, pl 4.0 2.3 - 4.5 mg/dL Blood 03/21/2024 12:5 9 PM [employer] 03/21/2024 1:11 PM [employer] Evan Mai MD LAB BLOOD ORDERABLES Final Res ult Performing Organization Address [facility] de Phone Number [facility] [place] [address] * Magnesium (03/21/2024 12:59 PM [employer]CH[employer]IC) [facility] Magnesium 2.2 1.4 - 2.5 mg/dL Blood 03/21/2024 12:5 9 PM [employer] 03/21/2024 1:11 PM [employer] Evan Mai MD LAB BLOOD ORDERABLES Final Res ult Performing Organization Address [facility] de Phone Number [facility] [place] [address] * (ABNORMAL) Lactate dehydrogenase (LD) (03/21/2024 12:59 PM [employer]) [facility] Lactate dehydrogenase (LDH) 267(H) 100 - 250 Units/L Blood 03/21/2024 12:5 9 PM [employer] 03/21/2024 1:11 PM [employer] Evan Mai MD LAB BLOOD ORDERABLES Final Res ult Performing Organization Address [facility] [place] [address] * (ABNORMAL) Comprehensive metabolic panel (03/21/2024 12:59 PM [employer]CH[employer]) [facility] Sodium 133(L) 135 - 145 mmol/L Potassium, pl 4.7 3.3 - 4.9 mmol/L [facility] Chloride 103 97 - 110 mmol/L [facility] CO2 27 22 - 32 mmol/L [facility] Anion gap 3 2 - 15 mmol/L [facility] BUN 26(H) 6 - 25 mg/dL [facility] Creatinine 0.77(L) 0.80 - 1.30 mg/dL [facility] Glucose 119 70 - 199 mg/dL [facility] Comment: Interpretive Data Fasting glucose >/= 126 mg/dl is diagnostic for diabetes. ?? Fasting is defined as no caloric intake for at least 8 hours. Fasting glucose between 100 mg/dl to 125 mg/dl is diagnostic of prediabetes. In a patient with classic symptoms of hyperglycemia or hyperglycemic crisis, a random glucose >/= 200 mg/dl is diagnostic for diabetes. In the absence of unequivocal hyperglycemia, results should be confirmed by repeat testing. The classification and Diagnosis of Diabetes Diabetes Care 2021; 46: S19-S40. Current interpretive data was last revised 2022. Calcium 9.2 8.5 - 10.3 mg/dL [facility] Bilirubin, total 0.4 0.1 - 1.2 mg/dL [facility] Protein, pl 8.5 6.5 - 8.5 g/dL [facility] Albumin 3.2(L) 3.5 - 5.0 g/dL [facility] Alk phos 88 40 - 130 Units/L [facility] ALT 5(L) 7 - 55 Units/L [facility] AST 14 10 - 50 Units/L [facility] Blood 03/21/2024 12:5 9 PM [employer] 03/21/2024 1:11 PM [employer] Evan Mai MD LAB BLOOD ORDERABLES Final Res ult Performing Organization Address City/State/[facility] Co de Phone Number [facility] Department [place] [address] from Last 3 Months Insurance [employer] OPEN [employer]ESS [employer] Care Teams P[employer]uriser Operator Relationship Specialty Start Date End Date Yaya Britt MD PCP - General 07/31/16 Kaleb Tomlin MD [address] [id number] Referring Physician Hematology 02/29/24 Evan Mai MD [address] [facility] [address] [place] [address] Consulting Physician Internal Medicine 03/01/24
--- OUTSIDE RECORDS SUMMARY | 2024-04-20 02:19 | XMS_ITS | Encounter Summary ---
Author Organization [facility] Healthcare Address [address] [place] [address] Care Team Providers Care Transcriptionist Name Role Phone Yaya Britt MD Primary Care Provider [phone] Kaleb Tomlin MD Unavailable [phone] Evan Mai MD Unavailable [phone] Reason for Visit * (Routine) - Pending Review Specialty Diagnoses / Procedures Referred By Taco crawford Referred To Contact Diagnoses 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 having achieved remission (HCC) Procedures Hematologic Molecular Algorithm Bone marrow Evan Mai MD [address] [place] [address] Phone: tel: fax: Referral ID Status Reason Start Date Expiration Date V isits Requested Visits Authorized [id number] Pending Review 03/21/2024 04/20/2025 1 1 Encounter Details Date Type Department Care Team (Latest Contact Info) Description 03/27/2024 12:30 PM NARROW FABRIC CALENDERER Clinical Support [facility] - Lab Collection [address] [facility] [place] [address] [place] [address] 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 having achieved remission [...] on file Legal Sex Male 2:01 AM NARROW FABRIC CALENDERER Gender Identity Not on file Sexual Orientation Not on file documented as of this encounter Plan of Treatment Not on file documented as of this encounter Procedures Procedure Name Priority Date/Time Associated Diagnosis Comments CYTOGENETICS TRACKING ORDER Routine 03/27/2024 2:13 PM NARROW FABRIC CALENDERER 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 having achieved remission (HCC) CHROMOSEQ TRACKING ORDER Routine 03/27/2024 2:13 PM NARROW FABRIC CALENDERER 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 having achieved remission (HCC) MYELOSEQ TRACKING ORDER Routine 03/27/2024 2:13 PM NARROW FABRIC CALENDERER 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 having achieved remission (HCC) FLOW LEUKEMIA/LYMPHOMA Routine 2:13 PM NARROW FABRIC CALENDERER 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 having achieved remission (HCC) HEMATOLOGIC MOLECULAR ALGORITHM Routine 03/27/2024 2:13 PM NARROW FABRIC CALENDERER 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 having achieved remission (HCC) SURGICAL PATHOLOGY Routine 03/27/2024 2: 13 PM NARROW FABRIC CALENDERER 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 having achieved remission (HCC) EGFR Routine 03/27/2024 1:23 PM NARROW FABRIC CALENDERER 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 having achieved remission (HCC) CBC WITH AUTO DIFFERENTIAL Routine 03/27/2024 1:23 PM NARROW FABRIC CALENDERER 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 having achieved remission (HCC) MANUAL DIFFERENTIAL Routine 03/27/2024 1 :23 PM NARROW FABRIC CALENDERER 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 having achieved remission (HCC) COMPREHENSIVE METABOLIC PANEL Routine 03/27/2024 1:23 PM NARROW FABRIC CALENDERER 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 having achieved remission (HCC) documented in this encounter Results * Surgical pathology (03/27/2024 2:13 PM NARROW FABRIC CALENDERER) Tissue (Bone Marrow Biopsy) 03/27/2024 2:13 PM NARROW FABRIC CALENDERER 03/27/2024 5:22 PM NARROW FABRIC CALENDERER Narrative PATHOLOGY [facility] - 03/29/2024 2:40 PM NARROW FABRIC CALENDERER EPIC results best viewed via link to PDF [facility] of [place] [address] Note to Patients: This report may contain [...] FINAL WITH ADDENDUM Patient Name: ?? KELLEE TAPIAWes ABBOTT Gender: ??M : ??1960 (Age: 63) Address: ??[address] [place] [address] ??[id number] Hospital #: ??[id number] Taken:03/27/2024 Received:03/27/2024 Reported: 03/29/2024 Patient Type: BJ MED ONC ?? Service: Laboratory Location: Physician(s): [...] Jar 0. ?? sxst/03/27/2024 17:59 PA(s): Bronwyn Patelsintia ? CBC: ?Date: 03/27/2025 ?WBCs: 1.7x10^3/mcl ?Hemoglobin: [...] 3 ?The differential count may not be customer solutions representative of marrow elements ? Bone marrow [...] flow cytometry specimen was examined for internal quality improvement coordinator purposes. Flow cytometry was performed using antibodies to the following cellular antigens: CD45, CD34, CD19, CD20, Ty Ty, Lambda, CD10, CD5, CD200, CD38, CD2, CD3, [...] Surgical Pathology and Flow Cytometry Departments at [facility] as part of an ongoing quality control technician program and in compliance with federally mandated [...] Surgical Pathology and Flow Cytometry Departments of [facility]. ??It has not been cleared or approved by the U. S. Food and Drug Administration. IMAGES AND SCANNED DOCUMENTS, IF INCLUDED, ONLY VIEWABLE IN PDF VERSION OF REPORT us Evan Mai MD LAB PATHOLOGY ORDERABLES Final Result PATHOLOGY [facility] 3rd Floor [place], [place] [phone] * Flow Leukemia/Lymphoma Bone marrow (03/27/2024 2:13 PM NARROW FABRIC CALENDERER) Kaufman Stain Test Completed Leukemia/Lymp johana Result See separate Surgical Pathology report. [facility] Bone marrow 03/27/2024 2:13 PM NARROW FABRIC CALENDERER 03/27/2024 6:37 PM NARROW FABRIC CALENDERER Narrative [facility] - 03/28/2024 8:22 AM NARROW FABRIC CALENDERER Tube information: Green top (Sodium Heparin) Evan Mai MD LAB PATHOLOGY ORDERABLES Final Result [facility] [place] [address] * Cytogenetics Specimen Tracking Bone marrow (03/27/2024 2:13 PM NARROW FABRIC CALENDERER) Pathologist [facility] Cytotenetics Tracking Order Received Bone marrow 03/27/2024 2:13 PM NARROW FABRIC CALENDERER 03/27/2024 5:26 PM NARROW FABRIC CALENDERER Narrative [facility] - 03/28/2024 9:48 AM NARROW FABRIC CALENDERER Please read the Cytogenetics Epic requisition for specimen collection requirements. Evan Mai MD LAB BODY FLUIDS AND STOOLS ORD ERABLES Final Result Performing Organization Address [facility] Co de Phone Number [facility] [place] [address] * Hematologic Molecular Algorithm Bone marrow (03/27/2024 2:13 PM NARROW FABRIC CALENDERER) Pathologist [facility] Heme Molecular Algorithm Received Bone marrow 03/27/2024 2:13 PM NARROW FABRIC CALENDERER 03/28/2024 9:29 AM NARROW FABRIC CALENDERER Narrative [facility] - 04/05/2024 11:34 AM NARROW FABRIC CALENDERER Tube information: [place] top Clinical History / Treatment Plan:->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 Select diagnosis - - Appropriate molecular tests will be performed based on histopathological diagnosis.->AML 04/02/2024 - HMA complete, no additional testing indicated. us Evan Mai MD LAB BODY FLUIDS AND STOOLS ORD ERABLES Final Result Performing Organization Address City/[facility]/ZIP Co de Phone Number [facility] [place] [address] * MyeloSeq tracking order Bone marrow (03/27/2024 2:13 PM NARROW FABRIC CALENDERER) [facility] MyeloSeq Received Bone marrow 03/27/2024 2:13 PM NARROW FABRIC CALENDERER 03/27/2024 5:26 PM NARROW FABRIC CALENDERER Narrative [facility] - 03/28/2024 9:48 AM NARROW FABRIC CALENDERER Specimen type (select one):->Marrow Evan Mai MD LAB BODY FLUIDS AND STOOLS ORD ERABLES Final Result Performing Organization Address [facility] [place] [address] * ChromoSeq tracking order Bone marrow (03/27/2024 2:13 PM NARROW FABRIC CALENDERER) [facility] ChromoSeq Tracking Order Received Bone marrow 03/27/2024 2:13 PM NARROW FABRIC CALENDERER 03/27/2024 5:26 PM NARROW FABRIC CALENDERER Narrative [facility] - 03/28/2024 9:48 AM NARROW FABRIC CALENDERER Specimen type (select one):->Marrow Evan Mai MD LAB BODY FLUIDS AND STOOLS ORD ERABLES Final Result Performing Organization Address [facility] [place] [address] * eGFR (03/27/2024 1:23 PM NARROW FABRIC CALENDERER) [facility] eGFR >90 >=60 mL/min/1. 73 m2 Comment: [...] last reviewed 2021. Blood 03/27/2024 1:23 PM NARROW FABRIC CALENDERER 03/27/2024 1:36 PM NARROW FABRIC CALENDERER Evan Mai MD LAB BLOOD ORDERABLES Final Res ult [facility] Department [place] [address] * (ABNORMAL) Manual Differential (03/27/2024 1:23 PM NARROW FABRIC CALENDERER) Cells Counted 147 Comment:Testing performed by : [facility], [address] [place] [phone] Neutrophil abs 0.5(L) 1.5 - 6.5 K/cumm [facility] ANDERSON Comment:Testing performed by : [facility], [address] [place] [address] Lymphocyte abs 0.9 0.8 - 3.3 K/cumm [facility] ANDERSON Comment:Testing performed by : [facility], [address] [place] [phone] Monocyte abs 0.0(L) 0.2 - 0.8 K/cumm CA[facility] ANDERSON Comment:Testing performed by : [facility], [address] [place] [phone] Eosinophil abs 0.0 0.0 - 0.5 K/cumm C[facility]ER BJ Comment:Testing performed by : [facility], [address] [place] [phone] Basophil abs 0.0 0.0 - 0.1 K/cumm CERNER BJ Comment:Testing performed by : [facility], [address] [place] [phone] Neutrophil pct 31.0 % CERNER BJ Comment: Interpretive Data Percent cell count reference ranges are not reported, since discordance with absolute values may lead to misinterpretation of CBC data. Current Interpretive Data was last revised on 2017. Testing performed by: [facility], [address] [place] [phone] Lymphocyte pct 54.0 % CERNER BJ Comment: Interpretive Data Percent cell count reference ranges are not reported, since discordance with absolute values may lead to misinterpretation of CBC data. Current Interpretive Data was last revised on 2017. Testing performed by: [facility], [address] [place] [phone] Monocyte pct 0.0 % CERNER BJ Comment: Interpretive Data Percent cell count reference ranges are not reported, since discordance with absolute values may lead to misinterpretation of CBC data. Current Interpretive Data was last revised on 2017. Testing performed by: [facility], [address] [place] [phone] Eosinophil pct 1.0 % CERNER BJ Comment: Interpretive Data Percent cell count reference ranges are not reported, since discordance with absolute values may lead to misinterpretation of CBC data. Current Interpretive Data was last revised on 2017. Testing performed by: [facility], [address] [place] [phone] Basophil pct 1.0 % CERNER BJ Comment: Interpretive Data Percent cell count reference ranges are not reported, since discordance with absolute values may lead to misinterpretation of CBC data. Current Interpretive Data was last revised on 2017. Testing performed by: [facility], [address] [place] [phone] Metamyelocyte pct 3.0 % CERNER BJ Comment:Testing performed by : [facility], [address] [place] [phone] Myelocyte pct 1.0 % CERNER BJ Comment:Testing performed by : [facility], [address] [place], [place] [phone] Variant lymph pct 10.0 % CERRAMAN BJ Comment:Testing performed by : [facility], [address] [place], [place] [phone] Smudge cells, qual Present(A ) CERNER BJ Comment:Testing performed by : [facility], [address] [place], [place] [phone] Polychromasia 1+(A) CERRAMAN BJ Comment:Testing performed by : [facility], [address] [place], [place] [phone] Hypochromasia 1+(A) CERRAMAN BJ Comment:Testing performed by : [facility], [address] [place], [place] [phone] Anisocytosis 1+(A) CERRAMAN BJ Comment:Testing performed by : [facility], [address] [place], [place] [phone] Poikilocytosis 1+(A) CERRAMAN BJ Comment:Testing performed by : [facility], [address] [place], [place] [phone] Microcytes 1+(A) CERRAMAN BJ Comment:Testing performed by : [facility], [address] [place], [place] [phone] Macrocytes 1+(A) CERRAMAN BJ Comment:Testing performed by : [facility], [address] [place] [phone] Schistocytes 1+(A) CERRAMAN BJ Comment:Testing performed by : [facility], [address] [place], [place] [phone] Elliptocytes 1+(A) CERRAMAN BJ Comment:Testing performed by : [facility], [address] [place] [phone] Target cells 1+(A) CERRAMAN BJ Comment:Testing performed by : [facility], [address] [place] [address] Platelet estimate Decreased (A) CERRAMAN BJ Comment:Testing performed by : [facility], [address] [place] [address] Blood 03/27/2024 1:23 PM NARROW FABRIC CALENDERER 03/27/2024 1:32 PM NARROW FABRIC CALENDERER us Evan Mai MD LAB BLOOD ORDERABLES Final Res ult [facility] Department [place] [address] * (ABNORMAL) CBC with auto differential (03/27/2024 1:23 PM NARROW FABRIC CALENDERER) WBC 1.7(L) 3.8 - 9.9 K/cumm Comment:Testing performed by : [facility], [address] [place] [address] Hgb 7.9(L) 13.0 - 17.5 g/dL CERRAMAN BJ Comment:Testing performed by : [facility], [address] [place] [address] Hct 24.2(L) 38.9 - 50.3 % CERRAMAN BJ Comment:Testing performed by : [facility], [address] [place] [address] Plt 21(L) 150 - 400 K/cumm CERRAMAN BJ Comment:Testing performed by : [facility], [address] [place] [address] MPV 8.2 6.8 - 10.4 fL CERRAMAN BJ Comment:Testing performed by : [facility], [address] [place] [address] RBC 2.80(L) 4.30 - 5.80 M/cumm CERRAMAN BJ Comment:Testing performed by : [facility], [address] [place] [address] MCV 86.5 81.3 - 96.4 fL CERRAMAN BJ Comment:Testing performed by : [facility], [address] [place] [phone] MCH 28.3 27.1 - 33.3 pg CAITLIN ANDERSON Comment:Testing performed by : [facility], [address] [place], [place] [phone] MCHC 32.7 32.3 - 35.7 g/dL CAITLIN ANDERSON Comment:Testing performed by : [facility], [address] [place], [place] [phone] RDW CV 18.4(H) 11.1 - 14.9 % [facility] Comment:Testing performed by : [facility], [address] [place], [place] [phone] NRBC abs 0.00 0.00 - 0.01 K/cumm CAITLIN ANDERSON Comment:Testing performed by : [facility], [address] [place] [phone] Blood 03/27/2024 1:23 PM NARROW FABRIC CALENDERER 03/27/2024 1:32 PM NARROW FABRIC CALENDERER us Evan Mai MD LAB BLOOD ORDERABLES Edited Re sult - Final [facility] Department [place] [address] * (ABNORMAL) Comprehensive metabolic panel (03/27/2024 1:23 PM NARROW FABRIC CALENDERER) Sodium 132(L) 135 - 145 mmol/L Potassium, pl 3.3 3.3 - 4.9 mmol/L [facility] Chloride 102 97 - 110 mmol/L [facility] CO2 25 22 - 32 mmol/L [facility] Anion gap 5 2 - 15 mmol/L [facility] BUN 20 6 - 25 mg/dL [facility] Creatinine 0.62(L) 0.80 - 1.30 mg/dL [facility] Glucose 105 70 - 199 mg/dL [facility] Comment: Interpretive Data Fasting glucose >/= 126 [...] 2022. Calcium 8.4(L) 8.5 - 10.3 mg/dL [facility] Bilirubin, total 0.6 0.1 - 1.2 mg/dL [facility] Protein, pl 7.0 6.5 - 8.5 g/dL [facility] Albumin 3.0(L) 3.5 - 5.0 g/dL [facility] Alk phos 80 40 - 130 Units/L [facility] ALT 7 7 - 55 Units/L [facility] AST 13 10 - 50 Units/L [facility] Blood 03/27/2024 1:23 PM NARROW FABRIC CALENDERER 03/27/2024 1:36 PM NARROW FABRIC CALENDERER us Evan Mai MD LAB BLOOD ORDERABLES Final Res ult [facility] Department [place] [address] documented in this encounter Visit Diagnoses Diagnosis 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 having achieved remission (HCC) documented in this encounter Orders Appointment Requests Count Last Ordered Date Fi rst Ordered Date ONCBCN LAB APPOINTMENT 1 03/27/2024 documented in this encounter Care Teams Transcriptionist Relationship Specialty Start Date End Date Yaya Britt MD PCP - General 07/31/16 Kaleb Tomlin MD [address] [place], [place] [phone] Referring Physician Hematology 02/29/24 Evan Mai MD [address] [facility] [address] DIV IM [place] [address] Consulting Physician Internal Medicine 03/01/24 documented as of this encounter
--- OUTSIDE RECORDS SUMMARY | 2024-04-20 02:19 | XMS_ITS ---
Author Organization [facility] [place] Address [address] [place] [address] Care Team Providers Care Program Production Specialist Name Role Phone Neal WATT, Yaya Primary Care Provider Unavail able Nataly Seymour Marty [phone] REASON FOR VISIT Refills Medications Medication SIG (Take, Route, Frequency, Duration) Notes Start Date End Date Status HYDROcodone-Acetaminophen 7.5-325 MG 1 Orally every 6 hrs for 30 days As needed 04/13/2024 05/13/2024 Active Encounters Encounter Location Date Provider Diagnosis [facility] [address] [facility] [address] [place] [address] 04/13/2024 Nataly Lion Other rheumatoid arthritis with rheumatoid factor of multiple sites M05.89 Assessments Encounter Date Diagnosis (ICD Code) Assessment Notes Treatment Notes Treatment Clinical Notes Section Notes 04/13/2024 Other rheumatoid arthritis with rheumatoid factor of multiple sites (ICD-10 - M05.89) Plan Of Treatment Medication Medication Name Sig Start Date Stop Date Notes HYDROcodone-Acetaminophen 7.5-325 MG 1 Orally every 6 hrs for 30 days 04/13/2024 05/13/2024 Next Appt Details Provider Name:Nataly Lion, 05/26 01:00:00 PM, [address], [place], [address], Progress Notes * Taiwo TAPIA SrDOB: (63 yo M)Acc No.[id number]:04/13/2024 Patient:?Taiwo TAPIA Sr :1960???Age:63 Y???Sex:Male Address:[address] [place] [address], [place] [address] * Refills? Refill HYDROcodone-Acetaminophen Tablet, 7.5-325 MG, Orally, 120, 1, every 6 hrs, 30 days, Refills=0 * true * Date:? Generated for Janneth friend/Johan/Shubhamsmitting on:?04/20/2024 02:18 AM CIRCULAR SAWYER HELPER
--- OUTSIDE RECORDS SUMMARY | 2024-04-20 02:19 | XMS_ITS ---
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) 08/06/2023 Atrial fibrillation (CMS/HCC) 08/06/2023 Rheumatoid arthritis of [place] [facility] without rheumatoid factor (CMS/HCC) 01/15/2017 High risk medication use 01/15/2017 Anemia 01/15/2017 Chronic midline low back pain without sciatica 0 01/15/2017 Drug indicated 09/16/2013 Overview (08/07/2016): Encounter for long-term (current) use of high-risk Rheumatoid arthritis 09/16/2013 Overview (08/08/2016): Arthritis, rheumatoid Current Oncology Plans Adult BMT/ONC - Blood and/or Platelet Administration for Outpatient* Plan Start Date:03/21/2024 Plan Provider:Evan Mai MD Linked Problems Anemia, unspecified typeAcut e myeloid leukemia not having achieved remission (HCC) Treatment Medications No medications scheduled. Past Plans No past plan information found. Radiation Treatments * No radiation treatments are documented for this patient in [facility]. Treatments may have been administered in another system.
--- OUTSIDE RECORDS SUMMARY | 2024-04-20 02:19 | XMS_ITS | Encounter Summary ---
Author Organization [facility] Address [address] [facility] [place] [address] Care Team Providers Care Profiler Name Role Phone Unavailable Primary Care Provider Unavailabl e Encounter Details Date Type Department Care Team (Late st Contact Info) Description 02/21/2024 Lab Requisition [facility] - Pathology Lab [address] [place] [address] Ignacio Hernández MD [address] [facility] [address] [place] [id number] Illness, unspecified Social History Tobacco Use Types Packs/Day Years Used Date Smoking Tobacco: Never Assessed Sex and Gender Information Value Date Recorded Sex Assigned at Not on file Gender Identity Not on file Sexual Orientation Not on file documented as of this encounter Plan of Treatment Not on file documented as of this encounter Procedures Procedure Name Priority Date/Time Associated Diagnosis Comments BONE MARROW BIOPSY (STL) Routine 02/18/2024 10:55 AM CDT Illness, unspecified documented in this encounter Results * BONE MARROW BIOPSY (STL) (02/18/2024 10:55 AM CDT) Case Report Bone Marrow Patholog y Report ?Case: [id number] ? Authorizing Provider: ??Ignacio Hernández ? Collected: ? 02/18/2024 10:55 AM ? MD Gerber ? Ordering Location: ? [facility] - ??Received: ?02/21/2024 03:32 PM ? Pathology Lab ? Pathologist: ? Tanya Esquivel MD ? Specimens: ?? A) - Bone Marrow Clot ? B) - Bone Marrow Core ? 02/24/2024 11:16 AM [facility] Final Diagnosis Bone marrow, aspirate, clot section, and core biopsy: - High-grade myeloid neoplasm. - See description and comment. 02/24/2024 11:16 AM [facility] Comment Overall findings are those of a high-grade myeloid neoplasm. Due to the hemodilute aspirate smear an exact blast count cannot be performed, but by immunohistochemistry blasts are increased in the 7-15% range. Differential diagnostic considerations are MDS/AML, possibly with mutated TP53, pure erythroid leukemia (E-Cadherin is pending), or acute megakaryoblastic leukemia (CD61 is pending). Results and a more exact subclassification will be reported in an addendum. Immunohistochemistry is performed to assess staining cells in an architectural context: CD34 highlights ~5-7% of marrow cellularity as blasts, while CD117 highlights ~20% of marrow cells as either very immature erythroid precursors or immature myeloid forms (promyelocytes and myeloblasts). P53 stains ~40% of mononuclear cells in the core, suggesting a possible myeloid neoplasm with mutated TP53, such as MDS/AML with mutated TP53 (ICC classification). CD3 and CD20 highlight the lymphoid aggregates, favored to be benign in nature. CD138 highlights increased plasma cells (7% of marrow cellularity) that appear to be polytypic by kappa and lambda immunohistochemistry (K:L of ~1). 02/24/2024 11:16 AM [facility] Peripheral Smear Description Not submitted. 02/24/2024 11:16 AM [facility] Bone Marrow Aspirate Differential count (200 cells): not performed due to hemodilution. Specimen quality: hemodilute Mostly peripheral blood elements. No blasts seen. Too few cells to assess for dysplasia. Storage iron (by special stain): cannot be assessed due to lack of spicules. 02/24/2024 11:16 AM [facility] Bone Marrow Core Biopsy and Clot Section Description Specimen quality: adequate with 1.4 cm of evaluable marrow. Cellularity: >90 % Myeloid to Erythroid ratio: appears decreased. Myeloid maturation and localization: left-shifted with increased blasts. Erythroid maturation and localization: dysplastic. Megakaryocyte number: increased. Megakaryocyte distribution: dysplastic. Lymphoid aggregates: present, non-paratrabecular, favor reactive. Plasma cells: normal. Reticulin: marked reticulum fibrosis. Clot section marrow particles: absent. Clot section morphology: peripheral blood only. 02/24/2024 11:16 AM [facility] Flow Cytometry Summary Bone marrow, flow cytometry ([id number]): - No clonal B-cell, aberrant T-cell, or increased blast population detected 02/24/2024 11:16 AM [facility] Clinical History Pancytopenia. 02/24/2024 11:16 AM [facility] Materials Received Received are 18 slide(s) and 3 block (s) labeled [id number] and along with a copy of the outside pathology report. [place] [address] . All original materials are returned to the referring institution, along with a copy of our final report. 02/24/2024 11:16 AM [facility] Pathologist Location at [facility] 02/24/2024 11:16 AM [facility] Disclaimer The performance characteristics of all immunohistochemical and indirect immunofluorescence stains (if any) cited in this report were determined by the Histopathology Laboratory of [facility]. Some of these tests were developed by our own laboratory and have not been cleared or approved by the US Food and Drug Administration. The FDA does not require this test to go through premarket FDA review. These tests are used for clinical purposes. They should not be regarded as investigational or for research. This laboratory is certified under the Clinical Laboratory Improvement Amendments (CLIA) as qualified to perform high complexity clinical laboratory testing. This case has been personally reviewed and interpreted by the attending (teaching) pathologist. 02/24/2024 11:16 AM [facility] Addendum 1 Additional immunohistochemistry shows blasts to be negative for CD61 ruling out acute megakaryoblastic leukemia. E-Cadherin shows weak staining in a subset of erythroid precursors, ruling out pure erythroid leukemia. 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 02/24/2024 11:16 AM [facility] Addendum electronically signed by Tanya Esquivel MD on 02/24/2024 at 11:16 AM Embedded Images 02/24/2024 11:16 AM [facility] Pathology/Cytology BONE MARROW SPECIMEN / Unknown 02/18/2024 10:55 AM CDT 02/21/2024 3:32 PM CDT Miscellaneous samples (specimen) BONE MARROW SPECIMEN / Unknown 02/18/2024 10:55 AM CDT 02/21/2024 3:32 PM CDT Ignacio Hernández MD LAB - PATHO LOGY/CYTOLOGY ORDERABLES Performing Organization Address City/State/[facility] Co de Phone Number [facility] [address] [phone] documented in this encounter Visit Diagnoses Diagnosis Illness, unspecified documented in this encounter
--- OUTSIDE RECORDS SUMMARY | 2024-04-20 02:19 | XMS_ITS | Encounter Summary ---
Author Organization [facility] Address [address] [facility] [place] [address] Care Team Providers Care Counter Professional Name Role Phone Unavailable Primary Care Provider Unavailabl e Encounter Details Date Type Department Care Team (Late st Contact Info) Description 02/18/2024 Lab Requisition [facility] - Pathology Lab [address] [place] [address] Ignacio Hernández MD [address] [facility] [address] [place] [address] Other pancytopenia (HCC) Social History Tobacco Use Types Packs/Day Years Used Date Smoking Tobacco: Never Assessed Sex and Gender Information Value Date Recorded Sex Assigned at Not on file Gender Identity Not on file Sexual Orientation Not on file documented as of this encounter Plan of Treatment Not on file documented as of this encounter Procedures Procedure Name Priority Date/Time Associated Diagnosis Comments FLOW CYTOMETRY BONE MARROW Routine 02/18/2024 10:55 AM CDT Other pancytopenia (HCC) documented in this encounter Results * FLOW CYTOMETRY BONE MARROW (02/18/2024 10:55 AM CDT) Case Report Flow Cytometry ?Case: [id number] ? Authorizing Provider: ??Ignacio Hernández ? Collected: ? 02/18/2024 10:55 AM ? MD Gerber ? Ordering Location: ? [facility] - ??Received: ?02/18/2024 04:03 PM ? Pathology Lab ? Pathologist: ? Tanya Esquivel MD ? Specimen: ?Bone Marrow ? 02/21/2024 1:08 PM CDT [facility] Final Diagnosis Bone marrow, flow cytometry: - No clonal B-cell, aberrant T-cell, or increased blast population detected 02/21/2024 1:08 PM CDT [facility] Flow Cytometry Interpretation Viability: 100% B-cells: polytypic, kappa:lambda ratio 2.2:1 T-cells: no immunophenotypic aberrancy detected CD4:CD8 ratio 1.2:1. No aberrant CD57 or CD56 expression on CD8+ T-cells. Blasts: not increased A bone marrow aspirate smear prepared from the flow cytometry specimen has been reviewed for quality supervisor purposes. 02/21/2024 1:08 PM [facility] Flow Cytometry Results Differential Result Comment Flow Cell Count /uL 1,480 Total Viability % 100.0 Lymphocytes % 75 Dim CD45 Region % 6 Monocytes % 5 Granulocytes % 13 02/21/2024 1:08 PM [facility] Reason for test Other pancytopenia (HCC) 284.19 02/21/2024 1:08 PM [facility] Client Specimen ID # [id number] 02/21/2024 1:08 PM [facility] Number of markers 32 were performed. A-2 Flow CD10 A-3 Flow CD13 A-5 Flow CD20 A-11 Flow CD2 A-13 Flow CD14 A-16 Flow CD117 A-17 Flow CD11b A-18 Flow CD11c A-22 Flow CD1a A-24 Flow CD3 A-25 Flow CD4 A-27 FLow CD16 A-1 Flow CD5 A-4 Flow CD19 A-6 Flow CD33 A-7 Flow CD34 A-8 Flow CD45 A-12 Flow CD7 A-14 Flow CD56 A-15 Flow CD64 A-20 Flow CD5 A-21 Flow CD7 A-23 Flow CD30 A-26 Flow CD8 A-28 Flow CD26 A-29 Flow CD56 A-30 Flow CD57 A-31 TCR-AB A-32 TCR-GD A-9 [place]+CD19+ A-10 Lambda+CD19+ A-19 Flow HLA-DR 02/21/2024 1:08 PM [facility] Pathologist Location at [facility] 02/21/2024 1:08 PM [facility] Disclaimer Test performed at [facility], [address] [place] [address], [address]. *The established laboratory minimum viability is 70%. Values below the minimum may result in the failure to find an abnormal population of cells. This test was developed and its performance characteristics determined by the Flow Cytometry Laboratory. It has not been cleared by the [place] Food and Drug Administration (FDA). The FDA has determined that such clearance or approval is not necessary. This test is used for clinical purposes. It should not be regarded as investigational or for research. This laboratory is regulated under the Clinical Laboratory Improvement Amendments of 1998 (CLIA) as a qualified to perform high complexity clinical testing. 02/21/2024 1:08 PM CDT [facility] Embedded Images 1:08 PM CDT [facility] Pathology/Cytolo gy BONE MARROW SPECIMEN / Unknown 02/18/2024 10:55 AM CDT 02/18/2024 4:03 PM CDT Ignacio Hernández MD LAB - PATHO LOGY/CYTOLOGY ORDERABLES [facility] [address] [phone] documented in this encounter Visit Diagnoses Diagnosis Other pancytopenia (HCC) Other pancytopenia documented in this encounter
--- OUTSIDE RECORDS SUMMARY | 2024-04-20 02:19 | XMS_ITS ---
Author Organization [facility] Address [address] [place] [address] Care Team Providers Care Inspector Missile Name Role Phone Neal WATT, Yaya Primary Care Provider Nataly Urrutia Marty [phone] REASON FOR VISIT prescriptions Encounters Encounter Location Date Provider Diagnosis [facility] [address] [place] [address] 03/15/2024 Nataly Seymour Plan Of Treatment Next Appt Details Provider Name:Nataly Lion, 05/26 01:00:00 PM, [address], [place], [address], Progress Notes * Taiwo TAPIA SrDOB: (63 yo M)Acc No.[id number]:03/15/2024 Patient:?Taiwo TAPIA Sr :1960???Age:63 Y???Sex:Male Address:[address] [place] [address], [address] * true * Date:? Generated for Printi ng/Faofeg/eTransmitting on:?04/20/2024 02:19 AM PHYTOPATHOLOGIST
--- OUTSIDE RECORDS SUMMARY | 2024-04-20 02:19 | XMS_ITS | Referral Summary ---
Author Organization [facility] Address [address] [facility] [place] [address] Care Team Providers Care Pension Manager Name Role Phone Unavailable Primary Care Provider Unavailabl e Source Comments [facility],non-owned Affiliates and Associated Physician Practices is amultiple site organization consisting of ambulatory clinics and hospital sitesin [place], [place], [place] and [place]. This disclosure is being madepursuant to the Care Everywhere program and may not contain all information available regarding this patient. Last updated 18.[facility] Encounters Date Type Department Care Team Description 02/21/2024 Lab Requisition [facility] - Pathology Lab [address] [place] [address] Ignacio Hernández MD Illness, unspecified 02/18/2024 Lab Requisition [facility] - Pathology Lab [address] [place] [address] Ignacio Hernández MD Other pancytopenia (HCC) from Last 3 Months Social History Tobacco Use Types Packs/Day Years Used Date Smoking Tobacco: Never Assessed Sex and Gender Information Value Date Recorded Sex Assigned at Not on file Gender Identity Not on file Sexual Orientation Not on file Plan of Treatment Not on file Procedures Procedure Name Priority Date/Time Associated Diagnosis Comments BONE MARROW BIOPSY (STL) Routine 02/18/2024 10:55 AM CDT Illness, unspecified FLOW CYTOMETRY BONE MARROW Routine 02/18/2024 10:55 AM CDT Other pancytopenia (HCC) from Last 3 Months Results * FLOW CYTOMETRY BONE MARROW (02/18/2024 10:55 AM CDT) Case Report Flow Cytometry ?Case: [id number] ? Authorizing Provider: ??Ignacio Hernández ? Collected: ? 02/18/2024 10:55 AM ? Gerber, ? Ordering Location: ? [facility] - ??Received: ?02/18/2024 04:03 PM ? Pathology Lab ? Pathologist: ? Alvin, Tanya H, MD ? Specimen: ?Bone Marrow ? 02/21/2024 1:08 PM CDT [facility] Final Diagnosis Bone marrow, flow cytometry: - No clonal B-cell, aberrant T-cell, or increased blast population detected 02/21/2024 1:08 PM [facility] Flow Cytometry Interpretation Viability: 100% B-cells: polytypic, kappa:lambda ratio 2.2:1 T-cells: no immunophenotypic aberrancy detected CD4:CD8 ratio 1.2:1. No aberrant CD57 or CD56 expression on CD8+ T-cells. Blasts: not increased A bone marrow aspirate smear prepared from the flow cytometry specimen has been reviewed for director software quality assurance purposes. 02/21/2024 1:08 PM [facility] Flow Cytometry Results Differential Result Comment Flow Cell Count /uL 1,480 Total Viability % 100.0 Lymphocytes % 75 Dim CD45 Region % 6 Monocytes % 5 Granulocytes % 13 02/21/2024 1:08 PM [facility] Reason for test Other pancytopenia (HCC) 284.19 02/21/2024 1:08 PM [facility] Client Specimen ID # [id number] 02/21/2024 1:08 PM [facility] Number of markers 32 were [...] Flow CD57 A-31 TCR-AB A-32 TCR-GD A-9 [place]+CD19+ A-10 Lambda+CD19+ A-19 Flow HLA-DR 02/21/2024 1:08 PM [facility] Pathologist Location at [facility] 02/21/2024 1:08 PM [facility] Disclaimer Test performed at [facility], [address] [facility], [place], [place], [address]. *The established laboratory minimum viability is 70%. [...] complexity clinical testing. 02/21/2024 1:08 PM CDT [facility] Embedded Images 1:08 PM CDT [facility] Pathology/Cytolo gy BONE MARROW SPECIMEN / Unknown 02/18/2024 10:55 AM CDT 02/18/2024 4:03 PM CDT Ignacio Hernández MD LAB - PATHO LOGY/CYTOLOGY ORDERABLES Performing Organization Address [facility]/State/ZIP Co de Phone Number [facility] [address] [place] [address]. [place] [address], [facility] [[email or web address]] [phone] * BONE MARROW BIOPSY (STL) (02/18/2024 10:55 AM CDT) Case Report Bone Marrow Patholog y Report ?Case: [id number] ? Authorizing Provider: ??Ignacio Hernández ? Collected: ? 02/18/2024 10:55 AM ? MD Gerber ? Ordering Location: ? [facility] - ??Received: ?02/21/2024 03:32 PM ? Pathology Lab ? Pathologist: ? Tanya Esquivel MD ? Specimens: ?? A) - Bone Marrow Clot ? B) - Bone Marrow Core ? 02/24/2024 11:16 AM [facility] Final Diagnosis Bone marrow, aspirate, clot section, and core biopsy: - High-grade myeloid neoplasm. - See description and comment. 02/24/2024 11:16 AM [facility] Comment Overall findings are those [...] immunohistochemistry (K:L of ~1). 02/24/2024 11:16 AM [facility] Peripheral Smear Description Not submitted. 02/24/2024 11:16 AM [facility] Bone Marrow Aspirate Differential count (200 cells): not performed due to hemodilution. Specimen quality: hemodilute Mostly peripheral blood elements. No blasts seen. Too few cells to assess for dysplasia. Storage iron (by special stain): cannot be assessed due to lack of spicules. 02/24/2024 11:16 AM [facility] Bone Marrow Core Biopsy and [...] morphology: peripheral blood only. 02/24/2024 11:16 AM [facility] Flow Cytometry Summary Bone marrow, flow cytometry ([id number]): - No clonal B-cell, aberrant T-cell, or increased blast population detected 02/24/2024 11:16 AM [facility] Clinical History Pancytopenia. 02/24/2024 11:16 AM [facility] Materials Received Received are 18 slide(s) and 3 block (s) labeled [id number] and along with a copy of the outside pathology report. [place] [address] . All original materials are returned to the referring institution, along with a copy of our final report. 02/24/2024 11:16 AM [facility] Pathologist Location at [facility] 02/24/2024 11:16 AM [facility] Disclaimer The performance characteristics of all immunohistochemical and indirect immunofluorescence stains (if any) cited in this report were determined by the Histopathology Laboratory of [facility]. Some of these tests were developed by [...] the attending (teaching) pathologist. 02/24/2024 11:16 AM [facility] Addendum 1 Additional immunohistochemistry shows blasts to be negative for CD61 ruling out acute megakaryoblastic leukemia. E-Cadherin shows weak staining in a subset of erythroid precursors, ruling out pure erythroid leukemia. 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 02/24/2024 11:16 AM [facility] Addendum electronically signed by Tanya Esquivel MD on 02/24/2024 at 11:16 AM Embedded Images 02/24/2024 11:16 AM [facility] Pathology/Cytology BONE MARROW SPECIMEN / Unknown 02/18/2024 10:55 AM CDT 02/21/2024 3:32 PM CDT Miscellaneous samples (specimen) BONE MARROW SPECIMEN / Unknown 02/18/2024 10:55 AM CDT 02/21/2024 3:32 PM CDT Ignacio Hernández MD LAB - PATHO LOGY/CYTOLOGY ORDERABLES [facility] [address] [place] [address], [facility] [[email or web address]] [phone] from Last 3 Months
--- OUTSIDE RECORDS SUMMARY | 2024-04-20 02:19 | XMS_ITS | Patient Health Record ---
Author Organization [facility] Address [address] [place] [address] Care Team Providers Care Grain Oilseed Or Pasture Farm Worker Name Role Phone Neal WATT, Yaya Primary Care Provider Unavail able Nataly Seymour Unavailable [phone] Allergies No Known Allergies Reason For Referral No Information Medications Medication SIG (Take, Route, Frequency, Duration) Notes Start Date End Date Status Spironolactone 25 MG TAKE 1 TABLET BY MO UTH EVERY MORNING Oral for 30 Days Active HYDROcodone-Acetaminophen 7.5-325 MG 1 Orally every 6 hrs for 30 days As needed 04/13/2024 05/13/2024 Active Metoprolol Succinate ER 50 MG TAKE 1 TABLET BY MOUTH EVERY MORNING Oral for 30 Days Active Ferrous Sulfate 325 (65 Fe) MG TAKE 1 TABLET BY MOUTH TWICE DAILY Oral for 30 Days Active Ibuprofen 400 MG prn Oral Act fara Vitamin O07-Hxzoy Acid 500-400 MCG take 1 tablet by oral route once Oral 1 Active Vitamin D (Ergocalciferol) 1.25 MG (53623 UT) take 1 capsule by oral route once Oral 1 Active Vitamin C 500 mg take 1 tablet by ora l route once Oral 1 Active Amiodarone HCl 200 MG TAKE 1 TABLET BY M OUTH DAILY AT 8 AM Oral for 30 Days Active Jardiance 10 MG TAKE 1 TABLET BY ANDERSON TH DAILY Oral for 30 Days Active Entresto 24-26 MG TAKE 1 TABLET BY ANDERSON TH EVERY 12 HOURS Oral for 30 Days Active Social History Tobacco Use: Social History Observation Description Date Details (start date - stop date) Never Smoker NA - NA Tobacco Control (Standard) Question Answer Notes Tobacco use: Nonsmoker Problems Problem Type SNOMED Code ICD Code Onset Dates Problem Status W/U Status Risk Notes Problem 688174911 Thrombocytopenia , unspecified (D69.6) Active confirmed Problem 877990135 Other rheumatoid arthritis with rheumatoid factor of multiple sites (M05.89) Active confirmed Vital Signs Heart Rate 93 /min 02/07/2024 Temperature 97.6 degrees Fahrenheit 02/07/2024 Oximetry 98 % 02/07/2024 Height-cm 175.26 cm 02/07/2024 Blood pressure diastolic 56 mm Hg 02/07/2024 Weight-kg 87.89 kg 02/07/2024 Height 69 in 02/07/2024 Blood pressure systolic 90 mm Hg 02/07/2024 Weight 193.8 lbs 02/07/2024 BMI 28.62 kg/m2 02/07/2024 Encounters Encounter Location Date Provider Diagnosis [facility] [address] [place] [address] 08/10/2023 Nataly Lion Other rheumatoid arthritis with rheumatoid factor of multiple sites M05.89 ; ELEANOR positive R76.8 ; Thrombocytopenia, unspecified D69.6 ; High risk medication use Z79.899 and Lumbar back pain M54.50 [facility] [address] [place] [address] 11/19/2023 Nataly Lion Other rheumatoid arthritis with rheumatoid factor of multiple sites M05.89 ; ELEANOR positive R76.8 ; Thrombocytopenia, unspecified D69.6 ; High risk medication use Z79.899 and Pain, joint, knee, left M25.562 [facility] [address] [place] [address] 02/07/2024 Nataly Lion Other rheumatoid arthritis with rheumatoid factor of multiple sites M05.89 ; ELEANOR positive R76.8 ; Thrombocytopenia, unspecified D69.6 ; High risk medication use Z79.899 and Pain, joint, knee, left M25.562 [facility] [address] [place] [address] 04/22/2023 Nataly Du [facility] [address] [place] [address] 05/25/2023 Nataly Du [facility] [address] [place] [address] 06/28/2023 Nataly Du [facility] [address] [place] [address] 08/18/2023 Nataly Du [facility] [address] [place] [address] 09/10/2023 Nataly Du Other rheumatoid arthritis with rheumatoid factor of multiple sites M05.89 [facility] [address] [place] [address] 10/08/2023 Nataly Du [facility] [address] [place] [address] 10/11/2023 Nataly Du Other rheumatoid arthritis with rheumatoid factor of multiple sites M05.89 [facility] [address] [place] [address] 11/01/2023 Nataly Du [facility] [address] [place] [address] 11/10/2023 Nataly Du Other rheumatoid arthritis with rheumatoid factor of multiple sites M05.89 [facility] [address] [place] [address] 12/10/2023 Nataly Du Other rheumatoid arthritis with rheumatoid factor of multiple sites M05.89 [facility] [address] [place] [address] 01/11/2024 Nataly Du Other rheumatoid arthritis with rheumatoid factor of multiple sites M05.89 [facility] [address] [place] [address] 02/01/2024 Nataly Du [facility] [address] [place] [address] 02/10/2024 Nataly Du Other rheumatoid arthritis with rheumatoid factor of multiple sites M05.89 [facility] [address] [place] [address] 03/14/2024 Nataly Du Other rheumatoid arthritis with rheumatoid factor of multiple sites M05.89 [facility] [address] [place] [address] 03/15/2024 Nataly Du [facility] [address] [place] [address] 03/20/2024 Nataly Du [facility] [address] [place] [address] 04/13/2024 Nataly Seymour Other rheumatoid arthritis with rheumatoid factor of multiple sites M05.89 Assessments Encounter Date Diagnosis (ICD Code) Assessment Notes Treatment Notes Treatment Clinical Notes Section Notes 08/10/2023 Other rheumatoid arthritis with rheumatoid factor of multiple sites (ICD-10 - M05.89) recent hospitalizaiton for a-fib, flu and pneumonia, off DMARDS, refill norco, return in 3 months 09/10/2023 Other rheumatoid arthritis with rheumatoid factor of multiple sites (ICD-10 - M05.89) 10/11/2023 Other rheumatoid arthritis with rheumatoid factor of multiple sites (ICD-10 - M05.89) 11/10/2023 Other rheumatoid arthritis with rheumatoid factor of multiple sites (ICD-10 - M05.89) 11/19/2023 Other rheumatoid arthritis with rheumatoid factor of multiple sites (ICD-10 - M05.89) restart arava an d decrease dosage to 10mg/day, start prednisone taper, return in 3 months, refer to Dr. Yusuf for left knee 11/19/2023 ELEANOR positive (ICD-10 - R76.8) restart arava an d decrease dosage to 10mg/day, start prednisone taper, return in 3 months, refer to Dr. Yusuf for left knee 12/10/2023 Other rheumatoid arthritis with rheumatoid factor of multiple sites (ICD-10 - M05.89) 01/11/2024 Other rheumatoid arthritis with rheumatoid factor of multiple sites (ICD-10 - M05.89) 02/07/2024 Other rheumatoid arthritis with rheumatoid factor of multiple sites (ICD-10 - M05.89) continue arava 10mg/day, return in 3 months, labs at next visit 02/10/2024 Other rheumatoid arthritis with rheumatoid factor of multiple sites (ICD-10 - M05.89) 03/14/2024 Other rheumatoid arthritis with rheumatoid factor of multiple sites (ICD-10 - M05.89) 04/13/2024 Other rheumatoid arthritis with rheumatoid factor of multiple sites (ICD-10 - M05.89) 02/07/2024 ELEANOR positive (ICD-10 - R76.8) continue arava 10mg/day, return in 3 months, labs at next visit 08/10/2023 ELEANOR positive (ICD-10 - R76.8) recent hospitalizaiton for a-fib, flu and pneumonia, off DMARDS, refill norco, return in 3 months 11/19/2023 Thrombocytopeni a, unspecified (ICD-10 - D69.6) restart arava an d decrease dosage to 10mg/day, start prednisone taper, return in 3 months, refer to Dr. Yusuf for left knee 11/19/2023 High risk medication use (ICD-10 - Z79.899) restart arava an d decrease dosage to 10mg/day, start prednisone taper, return in 3 months, refer to Dr. Yusuf for left knee 08/10/2023 Thrombocytopeni a, unspecified (ICD-10 - D69.6) recent hospitalizaiton for a-fib, flu and pneumonia, off DMARDS, refill norco, return in 3 months 02/07/2024 Thrombocytopeni a, unspecified (ICD-10 - D69.6) continue arava 10mg/day, return in 3 months, labs at next visit 11/19/2023 Pain, joint, knee, left (ICD-10 - M25.562) restart arava an d decrease dosage to 10mg/day, start prednisone taper, return in 3 months, refer to Dr. Yusuf for left knee 02/07/2024 High risk medication use (ICD-10 - Z79.899) continue arava 10mg/day, return in 3 months, labs at next visit 08/10/2023 High risk medication use (ICD-10 - Z79.899) recent hospitalizaiton for a-fib, flu and pneumonia, off DMARDS, refill norco, return in 3 months 08/10/2023 Lumbar back pain (ICD-10 - M54.50) recent hospitalizaiton for a-fib, flu and pneumonia, off DMARDS, refill norco, return in 3 months 02/07/2024 Pain, joint, knee, left (ICD-10 - M25.562) continue arava 10mg/day, return in 3 months, labs at next visit Plan Of Treatment Pending Test Test Name Order Date CBC With Differential/Platelet 3 Chem-Comprehensive 03/29/2023 Quantiferon Gold 03/29/2023 Next Appt Details Provider Name:Nataly Seymour, 05/26 01:00:00 PM, [address], [place], [address], Insurance Providers Payer Name Payer Address Payer Phone Subscriber Number Group Number Insured Name Patient Relationship to Insured Coverage Start Date Coverage End Date [employer] [address] [place] [address] [id number] Taiwo Palacios Self - patient is the insured 9 Medical (General) History Medical History History ICD Code Rheumatoid arthritis; Surgical History Surgery Date(Month/Year) Hospitalization History Reason Date(Month/Year)
--- OUTSIDE RECORDS SUMMARY | 2024-04-20 02:19 | XMS_ITS ---
Author Organization [facility] Address [address] [place] [address] Care Team Providers Care Refrigerator Assembler Name Role Phone Neal WATT, Yaya Primary Care Provider Unavail able LionNataly Marty [phone] REASON FOR VISIT pain/swelling Medications Medication SIG (Take, Route, Frequency, Duration) Notes Start Date End Date Status methylPREDNISolone 4 MG taper Orally for 6 days 03/26/2024 Active Encounters Encounter Location Date Provider Diagnosis [facility] [address] [place] [address] 03/20/2024 Nataly Seymoru Plan Of Treatment Medication Medication Name Sig Start Date Stop Date Notes methylPREDNISolone 4 MG taper Orally for 6 days 03/20/2024 03/26/2024 Next Appt Details Provider Name:Nataly Seymour, 05/26 01:00:00 PM, [address], [place], [address], Progress Notes * Taiwo TAPIA SrDOB: (63 yo M)Acc No.[id number]:03/20/2024 Patient:?Taiwo TAPIA Sr :1960???Age:63 Y???Sex:Male Address:[address] [place] [address], [address] * Refills? Start methylPREDNISolone Tablet Therapy Pack, 4 MG, Orally, 21, taper, 6 days, Refills=0 * true * Date:? Generated for Janneth friend/Johan/Joshuaitting on:?04/20/2024 02:19 AM CREW CHIEF
--- OUTSIDE RECORDS SUMMARY | 2024-04-20 02:19 | XMS_ITS | Patient Health Summary ---
Author Organization [facility] Address [address] [place] [address] Care Team Providers Care Supply Chain Buyer Name Role Phone Unavailable Primary Care Provider Unavailabl e Note from [facility],non-owned Affiliates and Associated Physician Practices is amultiple site organization consisting of ambulatory clinics and hospital sitesin [place], [place], [place] and [place]. This disclosure is being madepursuant to the Care Everywhere program and may not contain all information available regarding this patient. Last updated 18.[facility] Social History Tobacco Use Types Packs/Day Years Used Date Smoking Tobacco: Never Assessed Sex and Gender Information Value Date Recorded Sex Assigned at Not on file Gender Identity Not on file Sexual Orientation Not on file Procedures * BONE MARROW BIOPSY (STL)(Performed 02/18/2024) Performed for Illness, unspecified * FLOW CYTOMETRY BONE MARROW(Performed 02/18/2024) Performed for Other pancytopenia (HCC) Results * FLOW CYTOMETRY BONE MARROW (02/18/2024 10:55 AM CDT) Case Report Flow Cytometry ?Case: [id number] ? Authorizing Provider: ??Ignacio Hernández ? Collected: ? 02/18/2024 10:55 AM ? MD Gerber ? [facility] ??Received: ?02/18/2024 04:03 PM ? Pathology Lab ? Pathologist: ? Tanya Esquivel MD ? Specimen: ?Bone Marrow ? 02/21/2024 1:08 PM [facility] Final Diagnosis Bone marrow, flow cytometry: - No clonal B-cell, aberrant T-cell, or increased blast population detected 02/21/2024 1:08 PM [facility] Flow Cytometry Interpretation Viability: 100% B-cells: polytypic, kappa:lambda ratio 2.2:1 T-cells: no immunophenotypic aberrancy detected CD4:CD8 ratio 1.2:1. No aberrant CD57 or CD56 expression on CD8+ T-cells. Blasts: not increased A bone marrow aspirate smear prepared from the flow cytometry specimen has been reviewed for quality improvement specialist purposes. 02/21/2024 1:08 PM [facility] Flow Cytometry Results Differential Result Comment Flow Cell Count /uL 1,480 Total Viability % 100.0 Lymphocytes % 75 Dim CD45 Region % 6 Monocytes % 5 Granulocytes % 13 02/21/2024 1:08 PM [facility] Reason for test Other pancytopenia (HCC) 284.19 02/21/2024 1:08 PM [facility] Client Specimen ID # [id number] 02/21/2024 1:08 PM [facility] Number of markers 32 were [...] Flow CD57 A-31 TCR-AB A-32 TCR-GD A-9 Troutman+CD19+ A-10 Lambda+CD19+ A-19 Flow HLA-DR 02/21/2024 1:08 PM [facility] Pathologist Location at [facility] 02/21/2024 1:08 PM [facility] Disclaimer Test performed at [facility], [address] [place] [address], [address]. *The established laboratory minimum viability is 70%. [...] high complexity clinical testing. 02/21/2024 1:08 PM [facility] Embedded Images 10/21/202 4 1:08 PM CDT [facility] Pathology/Cytolo gy BONE MARROW SPECIMEN / Unknown 02/18/2024 10:55 AM CDT 02/18/2024 4:03 PM CDT Ignacio Hernández MD LAB - PATHO LOGY/CYTOLOGY ORDERABLES [facility] [address] [place] [address], [facility] [phone] * BONE MARROW BIOPSY (STL) (02/18/2024 10:55 AM CDT) Case Report Bone Marrow Patholog y Report ?Case: [id number] ? Authorizing Provider: ??Ignacio Hernández ? Collected: ? 02/18/2024 10:55 AM ? MD Gerber ? [facility] ? [facility] ??Received: ?02/21/2024 03:32 PM ? Pathology Lab ? Pathologist: ? Tanya Esquivel MD ? Specimens: ?? A) - Bone Marrow Clot ? B) - Bone Marrow Core ? 02/24/2024 11:16 AM [facility] Final Diagnosis Bone marrow, aspirate, clot section, and core biopsy: - High-grade myeloid neoplasm. - See description and comment. 02/24/2024 11:16 AM [facility] Comment Overall findings are those [...] immunohistochemistry (K:L of ~1). 02/24/2024 11:16 AM [facility] Peripheral Smear Description Not submitted. 02/24/2024 11:16 AM [facility] Bone Marrow Aspirate Differential count (200 cells): not performed due to hemodilution. Specimen quality: hemodilute Mostly peripheral blood elements. No blasts seen. Too few cells to assess for dysplasia. Storage iron (by special stain): cannot be assessed due to lack of spicules. 02/24/2024 11:16 AM [facility] Bone Marrow Core Biopsy and [...] morphology: peripheral blood only. 02/24/2024 11:16 AM [facility] Flow Cytometry Summary Bone marrow, flow cytometry ([id number]): - No clonal B-cell, aberrant T-cell, or increased blast population detected 02/24/2024 11:16 AM [facility] Clinical History Pancytopenia. 02/24/2024 11:16 AM [facility] Materials Received Received are 18 slide(s) and 3 block (s) labeled [id number] and along with a copy of the outside pathology report. [place] [address] . All original materials are returned to the referring institution, along with a copy of our final report. 02/24/2024 11:16 AM [facility] Pathologist Location at [facility] 02/24/2024 11:16 AM [facility] Disclaimer The performance characteristics of all immunohistochemical and indirect immunofluorescence stains (if any) cited in this report were determined by the [facility] of [facility]. Some of these tests were developed by [...] the attending (teaching) pathologist. 02/24/2024 11:16 AM CDT [facility] Addendum 1 Additional immunohistochemistry shows blasts to be negative for CD61 ruling out acute megakaryoblastic leukemia. E-Cadherin shows weak staining in a subset of erythroid precursors, ruling out pure erythroid leukemia. 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 02/24/2024 11:16 AM CDT [facility] Addendum electronically signed by Tanya Esquivel MD on 02/24/2024 at 11:16 AM Embedded Images 02/24/2024 11:16 AM CDT [facility] Pathology/Cytology BONE MARROW SPECIMEN / Unknown 02/18/2024 10:55 AM CDT 02/21/2024 3:32 PM CDT Miscellaneous samples (specimen) BONE MARROW SPECIMEN / Unknown 02/18/2024 10:55 AM CDT 02/21/2024 3:32 PM CDT Ignacio Hernández MD LAB - PATHO LOGY/CYTOLOGY ORDERABLES [facility] [address] [place] [address], [facility] [phone]
--- OUTSIDE RECORDS SUMMARY | 2024-04-20 02:19 | XMS_ITS | Clinical Summary ---
Author Organization [facility] Address [address] [place] [address] Care Team Providers Care Labourers Name Role Phone Unavailable Primary Care Provider Unavailabl e Source Comments [facility],non-owned Affiliates and Associated Physician Practices is amultiple site organization consisting of ambulatory clinics and hospital sitesin [place], [place]. This disclosure is being madepursuant to the Care Everywhere program and may not contain all information available regarding this patient. Last updated 18.[facility] Encounters Date Type Department Care Team Description 02/21/2024 Lab Requisition [facility] - Pathology Lab [address] [place] [address] Ignacio Hernández MD Illness, unspecified 02/18/2024 Lab Requisition [facility] - Pathology Lab [address] [place] [address] Ignacio Hernández MD Other pancytopenia (HCC) from Last 3 Months Social History Tobacco Use Types Packs/Day Years Used Date Smoking Tobacco: Never Assessed Sex and Gender Information Value Date Recorded Sex Assigned at Not on file Gender Identity Not on file Sexual Orientation Not on file Plan of Treatment Health Maintenance Due Date Last Done Comments COLOGUARD (AGES 45-75) - COL ON CA SCREENING 1959 COLON MONITORING 1959 COLONOSCOPY - COLON CA SCREENING 1959 CT COLONOGRAPHY - COLON CA SCREENING 1959 Colorectal Cancer Screening 1959 FIT - COLON CA SCREENING 1959 FLEX SIG - COLON CA SCREENING 1959 LIPID TESTING 1959 COVID-19 VACCINE (#1) 1964 PNEUMOCOCCAL VACCINE (1 of 2 - PCV) 1965 HIV SCREENING 1974 HEPATITIS C SCREENING 05/12/1977 DTAP/TDAP/TD VACCINES (1 - Tdap) 1978 ZOSTER VACCINE (1 of 2) 1978 Respiratory Syncytial Virus (RSV) Vaccine Pt: or over 60 yrs (1 - Risk 60-74 years 1-dose series) 2019 DEPRESSION SCREENING 05/03/2023 INFLUENZA VACCINE (#1) 2024 HEPATITIS B VACCINE Aged Out No longe r eligible based on patient's age to complete this topic HIB VACCINE Aged Out No longer eligi ble based on patient's age to complete this topic HPV VACCINE Aged Out No longer eligi ble based on patient's age to complete this topic MENINGOCOCCAL VACCINE Aged Out No servando jasper eligible based on patient's age to complete this topic Procedures Procedure Name Priority Date/Time Associated Diagnosis Comments BONE MARROW BIOPSY (STL) Routine 02/18/2024 10:55 AM CDT Illness, unspecified FLOW CYTOMETRY BONE MARROW Routine 02/18/2024 10:55 AM CDT Other pancytopenia (HCC) from Last 3 Months Results * FLOW CYTOMETRY BONE MARROW (02/18/2024 10:55 AM CDT) Case Report Flow Cytometry ?Case: [id number] ? Authorizing Provider: ??Ignacio Hernández ? Collected: ? 02/18/2024 10:55 AM ? MD Gerber ? Ordering Location: ? [facility] - ??Received: ?02/18/2024 04:03 PM ? Pathology Lab ? Pathologist: ? Tanya Esquivel MD ? Specimen: ?Bone Marrow ? 02/21/2024 1:08 PM CDT [facility] Final Diagnosis Bone marrow, flow cytometry: - No clonal B-cell, aberrant T-cell, or increased blast population detected 02/21/2024 1:08 PM [facility] Flow Cytometry Interpretation Viability: 100% B-cells: polytypic, kappa:lambda ratio 2.2:1 T-cells: no immunophenotypic aberrancy detected CD4:CD8 ratio 1.2:1. No aberrant CD57 or CD56 expression on CD8+ T-cells. Blasts: not increased A bone marrow aspirate smear prepared from the flow cytometry specimen has been reviewed for quality assurance monitor body purposes. 02/21/2024 1:08 PM CDT [facility] Flow Cytometry Results Differential Result Comment Flow Cell Count /uL 1,480 Total Viability % 100.0 Lymphocytes % 75 Dim CD45 Region % 6 Monocytes % 5 Granulocytes % 13 02/21/2024 1:08 PM CDT [facility] Reason for test Other pancytopenia (HCC) 284.19 02/21/2024 1:08 PM [facility] Client Specimen ID # [id number] 02/21/2024 1:08 PM [facility] Number of markers 32 were [...] Flow CD57 A-31 TCR-AB A-32 TCR-GD A-9 Odem+CD19+ A-10 Lambda+CD19+ A-19 Flow HLA-DR 02/21/2024 1:08 PM [facility] Pathologist Location at [facility] 02/21/2024 1:08 PM [facility] Disclaimer Test performed at [facility], [address] [place] [address], [id number]. *The established laboratory minimum viability is 70%. [...] high complexity clinical testing. 02/21/2024 1:08 PM [facility] Embedded Images 1:08 PM [facility] Pathology/Cytolo gy BONE MARROW SPECIMEN / Unknown 02/18/2024 10:55 AM CDT 02/18/2024 4:03 PM CDT Ignacio Hernández MD LAB - PATHO LOGY/CYTOLOGY ORDERABLES [facility] [address] [place] [address], [place] [phone] * BONE MARROW BIOPSY (STL) (02/18/2024 10:55 AM CDT) Case Report Bone Marrow Patholog y Report ?Case: [id number] ? Authorizing Provider: ??Ignacio Hernández ? Collected: ? 02/18/2024 10:55 AM ? MD Gerber ? Ordering Location: ? [facility] - ??Received: ?02/21/2024 03:32 PM ? Pathology Lab ? Pathologist: ? Tanya Esquivel MD ? Specimens: ?? A) - Bone Marrow Clot ? B) - Bone Marrow Core ? 02/24/2024 11:16 AM [facility] Final Diagnosis Bone marrow, aspirate, clot section, and core biopsy: - High-grade myeloid neoplasm. - See description and comment. 02/24/2024 11:16 AM [facility] Comment Overall findings are those [...] immunohistochemistry (K:L of ~1). 02/24/2024 11:16 AM [facility] Peripheral Smear Description Not submitted. 02/24/2024 11:16 AM [facility] Bone Marrow Aspirate Differential count (200 cells): not performed due to hemodilution. Specimen quality: hemodilute Mostly peripheral blood elements. No blasts seen. Too few cells to assess for dysplasia. Storage iron (by special stain): cannot be assessed due to lack of spicules. 02/24/2024 11:16 AM [facility] Bone Marrow Core Biopsy and [...] morphology: peripheral blood only. 02/24/2024 11:16 AM [facility] Flow Cytometry Summary Bone marrow, flow cytometry ([id number]): - No clonal B-cell, aberrant T-cell, or increased blast population detected 02/24/2024 11:16 AM [facility] Clinical History Pancytopenia. 02/24/2024 11:16 AM [facility] Materials Received Received are 18 slide(s) and 3 block (s) labeled [id number] and along with a copy of the outside pathology report. [place] [address] . All original materials are returned to the referring institution, along with a copy of our final report. 02/24/2024 11:16 AM [facility] Pathologist Location at [facility] 02/24/2024 11:16 AM [facility] Disclaimer The performance characteristics of all immunohistochemical and indirect immunofluorescence stains (if any) cited in this report were determined by the [facility] of [facility]. Some of these tests were developed by [...] attending (teaching) pathologist. 02/24/2024 11:16 AM CDT [facility] Addendum 1 Additional immunohistochemistry shows blasts to be negative for CD61 ruling out acute megakaryoblastic leukemia. E-Cadherin shows weak staining in a subset of erythroid precursors, ruling out pure erythroid leukemia. 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 02/24/2024 11:16 AM CDT [facility] Addendum electronically signed by Tanya Esquivel MD on 02/24/2024 at 11:16 AM Embedded Images 02/24/2024 11:16 AM CDT [facility] Pathology/Cytology BONE MARROW SPECIMEN / Unknown 02/18/2024 10:55 AM CDT 02/21/2024 3:32 PM CDT Miscellaneous samples (specimen) BONE MARROW SPECIMEN / Unknown 02/18/2024 10:55 AM CDT 02/21/2024 3:32 PM CDT Ignacio Hernández MD LAB - PATHO LOGY/CYTOLOGY ORDERABLES Performing Organization Address City/State/[facility] Co de Phone Number [facility] [address] [facility] [phone] from [place] [address] TAIWO TAPIA Personal/Family Spouse [address] [place] [address] [place] [address]
--- OUTSIDE RECORDS SUMMARY | 2024-04-20 02:19 | XMS_ITS | Clinical Summary ---
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 Active metoprolol XL (TOPROL-XL) 50 [...] present (HCC),Atrial fibrillation, unspecified type (HCC) Take by mouth Active acyclovir (ZOVIRAX) 400 mg tabletIndications: 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),Rheumatoid arthritis involving multiple sites, unspecified whether rheumatoid factor present (HCC),Atrial fibrillation, unspecified type (HCC) Take 1 tablet (400 mg total) by mouth every 4 (four) hours while awake 03/16/20 24 Active Airsupra 90-80 mcg/actuation HFA aerosol inhalerIndications :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),Rheumatoid arthritis involving multiple sites, unspecified whether rheumatoid factor present (HCC),Atrial fibrillation, unspecified type (HCC) 03/01/20 24 Active ALPRAZolam (XANAX) 0.25 mg [...] Atrial fibrillation (CMS/HCC) 08/06/2023 Rheumatoid arthritis of [facility] sites without rheumatoid factor (CMS/HCC) 01/15/2017 High risk medication use 01/15/2017 Anemia 01/15/2017 Chronic midline low back pain without sciatica 0 01/15/2017 Drug indicated 09/16/2013 Overview (08/07/2016): Encounter for long-term (current) use of high-risk Rheumatoid arthritis 09/16/2013 Overview (08/08/2016): Arthritis, rheumatoid Encounters Date Type Department Care Team Description 03/28/2024 Orders Only [place] [address] Evan Mai MD 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 having achieved remission (HCC) 03/27/2024 1:30 PM HEM INSPECTOR Infusion [facility] - Infusion [address] [place] [address] 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 having achieved remission (HCC) 03/27/2024 12:30 PM HEM INSPECTOR Clinical Support [facility] - Lab Collection [address] [facility] [address] [place] [address] 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 having achieved remission (HCC) 03/21/2024 5:30 PM HEM INSPECTOR Infusion [facility] - Infusion [address] [place] [address] Anemia, unspecified type (Primary Dx); 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 having achieved remission (HCC) 03/21/2024 3:30 PM HEM INSPECTOR Infusion [facility] - Infusion [address] [facility] [address] [place] [address] 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 having achieved remission (HCC) 03/21/2024 1:40 PM HEM INSPECTOR Office Visit [facility] Bone Marrow Transplant [address] [place] [phone] Evan Mai MD MDS (myelodysplastic syndrome) (HCC) (Primary Dx); 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 having achieved remission (HCC); TP53 gene mutation positive; 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); Rheumatoid arthritis involving multiple sites, unspecified whether rheumatoid factor present (HCC); Atrial fibrillation, unspecified type (HCC); Tobacco consumption 03/21/2024 12:45 PM HEM INSPECTOR Lab [facility] - Lab Collection [facility]0 [facility] [address] [address] 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 having achieved remission (HCC) 03/21/2024 Orders Only [facility] Bone Marrow Transplant [address] [place] [phone] Donis Adams RN 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 having achieved remission (HCC) (Primary Dx) 03/20/2024 Orders Only [facility] Bone Marrow Transplant [facility] [address] [phone] Donis Adams RN 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 having achieved remission (HCC) (Primary Dx) 03/16/2024 Telephone [facility] Bone Marrow Transplant [facility] [address] [phone] Donis Adams RN 03/01/2024 Orders Only [facility] Bone Marrow Transplant [address] [place] [phone] Evan Mai MD 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 having achieved remission (HCC) (Primary Dx) from Last 3 Months Surgical History Surgery Date Site/Laterality Comments APPENDECTOMY Appendectomy Medical History Medical History Date Comments Hx Other Medical bilateral leg g rafting Hx Other Medical rheumatoid arth ritis; Comments: JENN 01/08/2014 - Atrial fibrillation (CMS/HCC) (HCC) Cardiomyopathy (HCC) Family History Medical History Relation Name Comments Cancer Father Cancer, unknown ; Heart disease Maternal Grandfather Heart disease; Heart attack Mother Other Other 1 Family history of Cancer -unknown; Heart attack Other 2 Family history of Myocardial infarction; Other Other 3 Family history of rheumatoid arthritis - father; Relation Name Status Comments Father Maternal Grandfather Mother Other 1 Other 2 Other 3 Social History Tobacco Use Types Packs/Day Years [...] on file Legal Sex Male 2:01 AM HEM INSPECTOR Gender Identity Not on file Sexual Orientation Not on file Obstetrics History Last Filed Vital Signs Vital Sign Reading Time Taken Comments Blood Pressure 108/65 03/27/2024 2:29 PM HEM INSPECTOR Pulse 72 03/27/2024 2:29 PM HEM INSPECTOR Temperature 36.9 ??C (98.4 ??F) 03/27/2024 1:35 PM CS T Respiratory Rate 18 03/27/2024 2:29 PM HEM INSPECTOR Oxygen Saturation 96% 03/27/2024 2:29 PM HEM INSPECTOR Inhaled Oxygen Concentration - - Weight 92.8 kg (204 lb 9.4 oz) 03/27/2024 1:35 P M HEM INSPECTOR Height 172.7 cm (5' 8 ) 12/24/2023 9:27 AM CDT Body Mass Index 31.11 12/24/2023 9:27 AM CDT Plan of Treatment Health Maintenance Due Date Last Done Comments Colon Cancer Screening-Colonoscopy 1960 Depression Screening 1960 Hepatitis C Screening 1960 Prostate Cancer Screening-PSA 1959 Pneumococcal vaccine <65 (1 of 2 - PCV) 1965 DTaP/Tdap/Td Vaccine (1 - Tdap) 1970 Hepatitis B Screening 1977 Regular Well Visit/Exam 18-64 1977 Zoster Vaccine (1 of 2) 1978 Influenza Vaccine (#1) 2024 Procedures Procedure Name Priority Date/Time Associated Diagnosis Comments CHROMOSEQ - HEME GENETIC PROFILING (WGS) WITH INTERPRETATION Routine 03/27/2024 2:13 PM HEM INSPECTOR 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 having achieved remission (HCC) MYELOSEQ HEME NGS PANEL WITH INTERPRETATION Routine 03/27/2024 2:13 PM HEM INSPECTOR 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 having achieved remission (HCC) SURGICAL PATHOLOGY Routine 03/27/2024 2: 13 PM HEM INSPECTOR 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 having achieved remission (HCC) FLOW LEUKEMIA/LYMPHOMA Routine 2:13 PM HEM INSPECTOR 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 having achieved remission (HCC) CYTOGENETICS Routine 03/27/2024 2:13 PM HEM INSPECTOR 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 having achieved remission (HCC) CYTOGENETICS TRACKING ORDER Routine 03/27/2024 2:13 PM HEM INSPECTOR 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 having achieved remission (HCC) HEMATOLOGIC MOLECULAR ALGORITHM Routine 03/27/2024 2:13 PM HEM INSPECTOR 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 having achieved remission (HCC) MYELOSEQ TRACKING ORDER Routine 03/27/2024 2:13 PM HEM INSPECTOR 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 having achieved remission (HCC) CHROMOSEQ TRACKING ORDER Routine 03/27/2024 2:13 PM HEM INSPECTOR 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 having achieved remission (HCC) EGFR Routine 03/27/2024 1:23 PM HEM INSPECTOR 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 having achieved remission (HCC) MANUAL DIFFERENTIAL Routine 03/27/2024 1 :23 PM HEM INSPECTOR 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 having achieved remission (HCC) CBC WITH AUTO DIFFERENTIAL Routine 03/27/2024 1:23 PM HEM INSPECTOR 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 having achieved remission (HCC) COMPREHENSIVE METABOLIC PANEL Routine 03/27/2024 1:23 PM HEM INSPECTOR 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 having achieved remission (HCC) TRANSFUSE RED BLOOD CELLS Timed 03/21/2024 6:29 PM HEM INSPECTOR 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 having achieved remission (HCC) Anemia, unspecified type TRANSFUSE RED BLOOD CELLS Timed 03/21/2024 4:55 PM HEM INSPECTOR 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 having achieved remission (HCC) Anemia, unspecified type B CHECK SAMPLE STAT 03/21/2024 2:48 PM HEM INSPECTOR PREPARE RBC Timed 03/21/2024 2:46 PM HEM INSPECTOR 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 having achieved remission (HCC) Anemia, unspecified type DIFFERENTIAL AUTO STAT 03/21/2024 1:0 5 PM HEM INSPECTOR 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 having achieved remission (HCC) CBC WITH AUTO DIFFERENTIAL STAT 03/21/2024 1:05 PM HEM INSPECTOR 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 having achieved remission (HCC) EGFR STAT 03/21/2024 12:59 PM HEM INSPECTOR 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 having achieved remission (HCC) URIC ACID Routine 03/21/2024 12:59 PM HEM INSPECTOR 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 having achieved remission (HCC) MAGNESIUM Routine 03/21/2024 12:59 PM HEM INSPECTOR 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 having achieved remission (HCC) PHOSPHORUS Routine 03/21/2024 12:59 PM HEM INSPECTOR 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 having achieved remission (HCC) TYPE AND SCREEN STAT 03/21/2024 12:59 PM HEM INSPECTOR 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 having achieved remission (HCC) COMPREHENSIVE METABOLIC PANEL STAT 03/21/2024 12:59 PM HEM INSPECTOR 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 having achieved remission (HCC) LACTATE DEHYDROGENASE STAT 03/21/2024 12:59 PM HEM INSPECTOR 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 having achieved remission (HCC) CMV, IGG STAT 03/21/2024 12:59 PM HEM INSPECTOR 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 having achieved remission (HCC) from Last 3 Months Results * Cytogenetics Specimen Tracking Bone marrow (03/27/2024 2:13 PM HEM INSPECTOR) Cytotenetics Tracking Order Received Bone marrow 03/27/2024 2:13 PM HEM INSPECTOR 03/27/2024 5:26 PM HEM INSPECTOR Narrative CAITLIN ANDERSON - 03/28/2024 9:48 AM HEM INSPECTOR Please read the Cytogenetics Epic requisition for specimen collection requirements. us Evan Mai MD LAB BODY FLUIDS AND STOOLS ORD ERABLES Final Result CAITLIN ANDERSON One [facility] Department [place] [address] * Cytogenetics Bone marrow (03/27/2024 2:13 PM HEM INSPECTOR) Bone marrow (Bone Marrow Biopsy) 03/27/2024 2:13 PM HEM INSPECTOR 03/27/2024 2:13 PM HEM INSPECTOR Narrative [facility] - 04/11/2024 2:17 PM HEM INSPECTOR [facility] results best viewed via link to PDF [facility] Department of Pathol [address] [place] [id number] ? Patient Information ? Name: ??KELLEE PALACIOS [place]. SR. ? Gender: ??M ? : ??1960 (Age: 63) ? Tissue: ??Bone Marrow w/ FISH ? Visit Information ? Hospital #: ? [id number] ? Facility: ? [facility] ? Service: ? [facility]PT ? Location: ? UNKNOWN ? Patient Type: ? WUPT-EPIC ? Specimen Information: ? Culture #: ??[id number] ? Date Collected: ??03/27/2024 ? Date Accessioned: [...] Resolution: ??400Subculture: ?? 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 LIMITED COMPLEX KARYOTYPE FISH FINDINGS: ?DELETION OF EGR1 (5q) - 18.5% ?TRISOMY OF RUNX1 (21q) - 8.5% ?MONOSOMY OF ASS1/ABL1 (9q) - 16.5% ?NO EVIDENCE OF MECOM REARRANGEMENT ?NO EVIDENCE OF DELETION/MONOSOMY OF G5X294 (7q) ?NO EVIDENCE OF BMZL3X5::RUNX1, BCR::ABL1, KMT2A, PML::GRANT ? OR CBFB REARRANGEMENT INTERPRETATION: Only six metaphase cells were obtained and analyzed from an unstimulated culture. ??All six metaphase cells analyzed revealed the clonal aberrations described above in a composite karyotype (cp). ??Due to xfnp-rm-hhuo heterogeneity, the karyotypic description is composite, listing [...] Hybridization (FISH) analysis are performed using the [employer] CytoGalapagos Imaging System. Report Electronically Reviewed and Signed Out By Hima Bernal, PhD, FACMGDate Reported: ??4Associate Professor, Division of Genomic & Molecular Pathology FLUORESCENCE IN-SITU HYBRIDIZATION [FISH] Karyotype: nuc bree(Q4U664/N3B3497r1,EGR1x1)[37/200],(TXMZ5E3i2,GBXE7v8)[17/200],(ASS1x1,ABL1x1, BCRx2 )[33/200], (Q6I268,KMT2A,PML,CBFB,GRANT)x2[200] Diagnosis: FISH FINDINGS: ?DELETION OF EGR1 (5q) - 18.5% ?TRISOMY OF RUNX1 (21q) - 8.5% ?MONOSOMY OF ASS1/ABL1 (9q) - 16.5% ?NO EVIDENCE OF DELETION/MONOSOMY OF W3I960 (7q) ? NO EVIDENCE OF BNDD3O2::RUNX1, BCR::ABL1, KMT2A, PML::GRANT OR CBFB ? REARRANGEMENT Pending FISH: ?FISH for MECOM INTERPRETATION: FISH analysis was performed with a panel of [employer] and [employer] probes for AML and is interpreted as ABNORMAL for the EGR1, YZYR9K4::RUNX1, and BCR::ABL1 probe sets. 1) FISH evaluation for a 5q deletion was performed on nuclei with the EGR1,G5V766/R9J7890 Dual Color Probe ([employer] for EGR1 at 5q31.1 and the control B3O903/Z3R5771 at 5p15.31 and is interpreted as ABNORMAL. ??One EGR1 hybridization signal and two L1N812/R3M6050 control hybridization signals were observed in 37/200 nuclei, which exceeds the normal range (up to 3.1%) established for this probe in the Clinical Genomics Laboratory at [facility]. 2) FISH evaluation for a VLKH3A9::RUNX1 rearrangement was performed on nuclei with the LSI NMPR7V7::RUNX1 Dual Color, Dual Fusion Translocation Probe ([employer] for MYBS4S7(ETO) at 8q22 and RUNX1(AML1) at 21q22 and is interpreted as ABNORMAL, although an CBTF3W8::RUNX1 rearrangement was not detected. ??An abnormal hybridization pattern consisting of two QTDN9A3 hybridization signals and three RUNX1 hybridization signals was observed in 17/200 nuclei, indicative of trisomy for the corresponding region on chromosome 21. ??This value exceeds the normal range (up to 1%) established for this probe in the Clinical Genomics Laboratory at [facility]. ?? 3) FISH evaluation for a BCR::ABL1 [...] probe in the Clinical Genomics Laboratory at [facility]. 4) FISH evaluation for a 7q deletion was performed on nuclei with the LSI B0M707/D7Z1 Dual Color Probe ([employer] for Y7Q078 at 7q31 and the control D7Z1 at 7p11.1-q11.1 and is interpreted as NORMAL. ??Two P6H575 hybridization signals and two D7Z1 control hybridization signals were observed in 200/200 nuclei, which is within the normal range established for this probe set in the Clinical Genomics Laboratory at [facility]. ??Up to 1% of cells in normal samples can show an apparent 7q deletion using this probe. ??A normal O1D599 FISH finding can result from the absence of a 7q deletion, from a 7q deletion that does not involve the region to which this probe hybridizes or from an insufficient number of neoplastic cells in the specimen. 5) FISH evaluation for an KMT2A (MLL) rearrangement was performed on nuclei with the LSI KMT2A Dual Color, Break Apart Rearrangement Probe ([employer] at 11q23 and is interpreted as NORMAL. ??No rearrangement was observed in 200/200 nuclei, which is within the normal range established for this probe in the Clinical Genomics Laboratory at [facility]. ??Up to 1% of cells in normal [...] probe in the Clinical Genomics Laboratory at [facility]. Variant signal pattern was observed in 10/200 [...] Dual Color, Break Apart Rearrangement Probe ([employer] at 16q22 and is interpreted as NORMAL. ??No rearrangement was observed in 200/200 nuclei, which is within the normal range established for this probe in the Clinical Genomics Laboratory at [facility]. ??Up to 2% of cells in normal [...] and its performance characteristics determined by [facility]. It has not been cleared or approved by the FDA. The laboratory is regulated under CLIA as qualified to perform high-complexity testing. This test is used for clinical purposes. It should not be regarded as investigational or for research. Chromosome analysis and Fluorescence In Situ Hybridization (FISH) analysis are performed using the [employer] CytoGalapagos Imaging System. Report Electronically Reviewed and Signed Out By Asim Bear, PhD, FACMGDate Reported: ??4Assistant Professor, Division of Genomic & Molecular Pathology REFLEX FLUORESCENCE IN-SITU HYBRIDIZATION [FISH] Karyotype: nuc bree(MECOMx2)[200] Diagnosis: ?? FISH FINDINGS: ?NO EVIDENCE OF MECOM (3q) REARRANGEMENT INTERPRETATION: FISH evaluation for an EVI1(MECOM) rearrangement was performed on nuclei with the BETHANY Dual Color, Break Apart Rearrangement Probe ([employer]) at 3q26 and is interpreted as NORMAL. ??No rearrangement was observed in 199/200 nuclei, which is within the normal range established for this probe in the Clinical Genomics Laboratory at [facility]. ??Up to 2% of cells in normal [...] and its performance characteristics determined by [facility]. It has not been cleared or approved by the FDA. The laboratory is regulated under CLIA as qualified to perform high-complexity testing. This test is used for clinical purposes. It should not be regarded as investigational or for research. Chromosome analysis and Fluorescence In Situ Hybridization (FISH) analysis are performed using the [employer] Cytovision Imaging System. Report Electronically Reviewed and Signed Out By Margaret Ratliff, PhD Date Reported: ??4Assistant Professor, Division of Genomic & Molecular Pathology Evan Mai MD LAB GENETIC TESTING Final Resu lt [facility] CYTO[facility]ETICS [address] [place] [address] * ChromoSeq tracking order Bone marrow (03/27/2024 2:13 PM HEM INSPECTOR) ChromoSeq Tracking Order Received Bone marrow 03/27/2024 2:13 PM HEM INSPECTOR 03/27/2024 5:26 PM HEM INSPECTOR Narrative CAITLIN ANDERSON - 03/28/2024 9:48 AM HEM INSPECTOR Specimen type (select one):->Marrow Evan Mai MD LAB BODY FLUIDS AND STOOLS ORD ERABLES Final Result [facility] One [facility] Department [place] [address] * ChromoSeq - Heme Genetic Profiling (WGS) with interpretation Bone marrow (03/27/2024 2:13 PM HEM INSPECTOR) Bone marrow (Bone Marrow Biopsy) 03/27/2024 2:13 PM HEM INSPECTOR 03/28/2024 9:45 AM HEM INSPECTOR Narrative [facility] - 04/11/2024 10:20 PM HEM INSPECTOR [facility] Pathology Services [address] [place], [place] [id number] Final Report Patient Name: KELLEE PALACIOS SR. Address: [address] [place] [address] Gender: M : 1960 (Age: 63) Accessioned: 03/28/2024 Taken: 03/27/2024 Received: 03/28/2024 Physician(s): Evan Morataya MD Service: [facility] Location: [facility] #: [id number] Patient Type: [facility] ChromoSeq Molecular DiagnosticsReported:04/11/2024 Tissue type: Bone Marrow [...] identified, consistent with the corresponding cytogenetic studies ([id number]) and a complex karyotype. In addition, a [...] By ??Karthik Henderson MD, PhD ??04/11/2024 22:18:09 Evan Mai MD LAB PATHOLOGY ORDERABLES Final Result Performing Organization Address City/[facility]/ZIP Co de Phone Number [facility] [address] [place] [address] * MyeloSeq tracking order Bone marrow (03/27/2024 2:13 PM HEM INSPECTOR) MyeloSeq Received Bone marrow 03/27/2024 2:13 PM HEM INSPECTOR 03/27/2024 5:26 PM HEM INSPECTOR Narrative [facility] - 03/28/2024 9:48 AM HEM INSPECTOR Specimen type (select one):->Marrow Evan Mai MD LAB BODY FLUIDS AND STOOLS ORD ERABLES Final Result Performing Organization Address City/[facility]/ZIP Co de Phone Number [facility] One [facility] Department [place] [address] * Diagnosis MyeloSeq Heme NGS Panel with Interpretation Bone marrow (03/27/2024 2:13 PM HEM INSPECTOR) Bone marrow (Bone Marrow Biopsy) 03/27/2024 2:13 PM HEM INSPECTOR 03/28/2024 9:45 AM HEM INSPECTOR Narrative [facility] - 04/12/2024 10:35 PM HEM INSPECTOR [facility] Pathology Services [address] [place], [place] [address] Final Report Patient Name: KELLEE PALACIOS SR. Address: [address] [place] [address] [place], [place] [address] Gender: M : 1960 (Age: 63) Accessioned: 03/28/2024 Taken: 03/27/2024 Received: 03/28/2024 Physician(s): Evan Morataya MD Service: [facility] Location: [facility] #: [id number] Patient Type: [facility] MyeloSeq Molecular DiagnosticsReported:04/12/2024 Varients Detected: ? GENE [...] presents for evaluation. Corresponding bone marrow biopsy ([id number]) shows a markedly hypercellular marrow with 5% blasts and megakaryocytic dysplasia. Corresponding cytogenetic studies ([id number]) show a complex karyotype. Specimen site: Bone marrow Variant Detail: ? Gene ? Location (GR38) ? Reference allele ? Variant allele ? Transcript:Coding change ? Population Frequency* ? TP53 ? [id number] ? C ? T ? [id number]:c.517G>A ? none*The population allele frequency represents the [...] the CLIA Licensed Environment laboratory at the [facility] [employer] [place] at [facility] ([facility], CLIA #[id number], CAP #[id number]), Dr. Sammy Johnson MD, PhD, FCAP, Client Liaison. [address] [place] [address], [place] [address] [place], [place] [id number] . The [facility] laboratory is regulated under CLIA as certified to perform high-complexity testing. Interpretation of sequencing results and case sign out is performed by Pathology and Immunology faculty in the Division of Genomic and Molecular Pathology ([facility], CLIA #[id number], CAP #[id number]) Dr. Sujatha Littlejohn Ph.D., Client Liaison. [facility], [address] [facility], [address], [place] [id number] [phone] . The [facility] is regulated [...] 30GBases of sequencing data generated on an [employer] Plus. This test has been validated according to CAP guidelines for the detection of single nucleotide variants (SNVs) and indels (max validated size 117bp). This assay has two limits of detection: for new variants (not previously reported by [employer]) sensitivity is limited to 2% VAF; for [...] Such information and correlations are subject to microsoft exchange architect time in response to future scientific and [...] [facility] is provided on an IS basis. [employer] makes no representation or warranty of any [...] Mai MD LAB PATHOLOGY ORDERABLES Final Result [facility] [address] [place] [address] * Flow Leukemia/Lymphoma Bone marrow (03/27/2024 2:13 PM HEM INSPECTOR) Kaufman Stain Test Completed Leukemia/Lymp johana Result See separate Surgical Pathology report. CAITLIN ANDERSON Bone marrow 03/27/2024 2:13 PM HEM INSPECTOR 03/27/2024 6:37 PM HEM INSPECTOR Narrative CAITLIN [facility] WITH [facility] - 03/28/2024 8:22 AM HEM INSPECTOR Tube information: Green top (Sodium Heparin) us Evan Mai MD LAB PATHOLOGY ORDERABLES Final Result Performing Organization Address City/[facility]/ZIP Co de Phone Number [facility] Department [place] [address] * Hematologic Molecular Algorithm Bone marrow (03/27/2024 2:13 PM HEM INSPECTOR) Heme Molecular Algorithm Received Bone marrow 03/27/2024 2:13 PM HEM INSPECTOR 03/28/2024 9:29 AM HEM INSPECTOR Narrative [facility] - 04/05/2024 11:34 AM HEM INSPECTOR Tube information: Hilda top Clinical History / Treatment Plan:->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 Select diagnosis - - Appropriate molecular tests will be performed based on histopathological diagnosis.->AML 04/02/2024 - HMA complete, no additional testing indicated. us Evan Mai MD LAB BODY FLUIDS AND STOOLS ORD ERABLES Final Result Performing Organization Address [facility] Co de Phone Number [facility] Department [place] [address] * Surgical pathology (03/27/2024 2:13 PM HEM INSPECTOR) Tissue (Bone Marrow Biopsy) 03/27/2024 2:13 PM HEM INSPECTOR 03/27/2024 5:22 PM HEM INSPECTOR Narrative PATHOLOGY [facility] - 03/29/2024 2:40 PM HEM INSPECTOR EPIC results best viewed via link to PDF [facility] [place] [address] Note to Patients: This report may contain [...] FINAL WITH ADDENDUM Patient Name: ?? KELLEE PALACIOS SR. Gender: ??M : ??1960 (Age: 63) Address: ??[facility] [place], [place] ??[address] Hospital #: ??[id number] Taken:03/27/2024 Received:03/27/2024 Reported: 03/29/2024 Patient Type: [facility] MED ONC ?? Service: Laboratory Location: Physician(s): [...] 3 ?The differential count may not be veterans contact representative of marrow elements ? Bone marrow [...] cytometry specimen was examined for internal quality measurement specialist purposes. Flow cytometry was performed using antibodies to the following cellular antigens: CD45, CD34, CD19, CD20, [place], Lambda, CD10, CD5, CD200, CD38, CD2, CD3, [...] Surgical Pathology and Flow Cytometry Departments at [facility] as part of an ongoing quality control specialist program and in compliance with federally mandated regulations drawn from the Clinical Laboratory Improvement Act of 1988 (CLIA '). ??Some of these tests rely on the [...] Surgical Pathology and Flow Cytometry Departments of [facility]. ??It has not been cleared or approved by the U. S. Food and Drug Administration. IMAGES AND SCANNED DOCUMENTS, IF INCLUDED, ONLY VIEWABLE IN PDF VERSION OF REPORT Evan Mai MD LAB PATHOLOGY ORDERABLES Final Result PATHOLOGY [facility] 3rd Floor [place], [place] [phone] * eGFR (03/27/2024 1:23 PM HEM INSPECTOR) eGFR >90 >=60 mL/min/1. 73 m2 Comment: [...] of Race in Diagnosing Kidney Disease, JASN 202). The CKD-EPI equation should not be used for patients with unstable renal function and has not been validated in children and those over 70. Current interpretive data was last reviewed 2021. Blood 03/27/2024 1:23 PM HEM INSPECTOR 03/27/2024 1:36 PM HEM INSPECTOR us Evan Mai MD LAB BLOOD ORDERABLES Final Res ult [facility] Department [place] [address] * (ABNORMAL) CBC with auto differential (03/27/2024 1:23 PM HEM INSPECTOR) WBC 1.7(L) 3.8 - 9.9 K/cumm Comment:Testing performed by : [facility], [address] [place] [address] Hgb 7.9(L) 13.0 - 17.5 g/dL [facility] Comment:Testing performed by : [facility], [address] [place] [address] Hct 24.2(L) 38.9 - 50.3 % [facility] Comment:Testing performed by : [facility], [address] [place] [address] Plt 21(L) 150 - 400 K/cumm [facility]AN [facility] Comment:Testing performed by : [facility], [address] [place] [address] MPV 8.2 6.8 - 10.4 fL [facility] Comment:Testing performed by : [facility], [address] [place] [address] RBC 2.80(L) 4.30 - 5.80 M/cumm [facility] Comment:Testing performed by : [facility], [address] [place] [address] MCV 86.5 81.3 - 96.4 fL CAITLIN ANDERSON Comment:Testing performed by : [facility], [address] [place] [address] MCH 28.3 27.1 - 33.3 pg CAITLIN ANDERSON Comment:Testing performed by : [facility], [address] [place] [address] MCHC 32.7 32.3 - 35.7 g/dL CAITLIN ANDERSON Comment:Testing performed by : [facility], [address] [place] [address] RDW CV 18.4(H) 11.1 - 14.9 % CAITLIN ANDERSON Comment:Testing performed by : [facility], [address] [place] [address] NRBC abs 0.00 0.00 - 0.01 K/cumm CAITLIN ANDERSON Comment:Testing performed by : [facility], [address] [place] [address] Blood 03/27/2024 1:23 PM HEM INSPECTOR 03/27/2024 1:32 PM HEM INSPECTOR us Evan Mai MD LAB BLOOD ORDERABLES Edited Re bigg - Final CAITLIN ANDERSON [facility] Department [place] [address] * (ABNORMAL) Manual Differential (03/27/2024 1:23 PM HEM INSPECTOR) Cells Counted 147 Comment:Testing performed by : [facility], [address] [place] [address] Neutrophil abs 0.5(L) 1.5 - 6.5 K/cumm CAITLIN ANDERSON Comment:Testing performed by : [facility], [address] [place] [address] Lymphocyte abs 0.9 0.8 - 3.3 K/cumm CAITLIN ANDERSON Comment:Testing performed by : [facility], [address] [place] [phone] Monocyte abs 0.0(L) 0.2 - 0.8 K/cumm [facility] Comment:Testing performed by : [facility], [address] [place] [phone] Eosinophil abs 0.0 0.0 - 0.5 K/cumm [facility] Comment:Testing performed by : [facility], [address] [place] [phone] Basophil abs 0.0 0.0 - 0.1 K/cumm [facility] Comment:Testing performed by : [facility], [address] [place] [phone] Neutrophil pct 31.0 % [facility] Comment: Interpretive Data Percent cell count reference ranges are not reported, since discordance with absolute values may lead to misinterpretation of CBC data. Current Interpretive Data was last revised on 2017. Testing performed by: [facility], [address] [place] [phone] Lymphocyte pct 54.0 % [facility] Comment: Interpretive Data Percent cell count reference ranges are not reported, since discordance with absolute values may lead to misinterpretation of CBC data. Current Interpretive Data was last revised on 2017. Testing performed by: [facility], [address] [place] [phone] Monocyte pct 0.0 % [facility] Comment: Interpretive Data Percent cell count reference ranges are not reported, since discordance with absolute values may lead to misinterpretation of CBC data. Current Interpretive Data was last revised on 2017. Testing performed by: [facility], [address] [place] [phone] Eosinophil pct 1.0 % [facility] Comment: Interpretive Data Percent cell count reference ranges are not reported, since discordance with absolute values may lead to misinterpretation of CBC data. Current Interpretive Data was last revised on 2017. Testing performed by: [facility], [address] [place] [phone] Basophil pct 1.0 % [facility] Comment: Interpretive Data Percent cell count reference ranges are not reported, since discordance with absolute values may lead to misinterpretation of CBC data. Current Interpretive Data was last revised on 2017. Testing performed by: [facility], [address] [place], [place] [phone] Metamyelocyte pct 3.0 % CERRAMAN [facility] Comment:Testing performed by : [facility], [address] [place], [place] [phone] Myelocyte pct 1.0 % [facility]ER [facility] Comment:Testing performed by : [facility], [address] [place], [place] [phone] Variant lymph pct 10.0 % [facility]ERR[facility]AN [facility] Comment:Testing performed by : [facility], [address] [place] [phone] Smudge cells, qual Present(A ) [facility]ERR[facility]AN [facility] Comment:Testing performed by : [facility], [address] [place], [place] [phone] Polychromasia 1+(A) [facility]ERR[facility]AN [facility] Comment:Testing performed by : [facility], [address] [place], [place] [phone] Hypochromasia 1+(A) [facility]AN [facility] Comment:Testing performed by : [facility], [address] [place], [place] [phone] Anisocytosis 1+(A) [facility] Comment:Testing performed by : [facility], [address] [place], [place] [phone] Poikilocytosis 1+(A) [facility] Comment:Testing performed by : [facility], [address] [place], [place] [phone] Microcytes 1+(A) [facility] Comment:Testing performed by : [facility], [address] [place], [place] [phone] Macrocytes 1+(A) [facility] Comment:Testing performed by : [facility], [address] [place], [place] [phone] Schistocytes 1+(A) [facility] Comment:Testing performed by : [facility], [address] [place], [place] [phone] Elliptocytes 1+(A) [facility] Comment:Testing performed by : [facility], [facility] [place] [phone] Target cells 1+(A) [facility] Comment:Testing performed by : [facility], [address] [place] [phone] Platelet estimate Decreased (A) [facility] Comment:Testing performed by : [facility], [address] [place] [phone] Blood 03/27/2024 1:23 PM HEM INSPECTOR 03/27/2024 1:32 PM HEM INSPECTOR us Evan Mai MD LAB BLOOD ORDERABLES Final Res ult [facility] Department [place] [address] * (ABNORMAL) Comprehensive metabolic panel (03/27/2024 1:23 PM HEM INSPECTOR) Sodium 132(L) 135 - 145 mmol/L Potassium, pl 3.3 3.3 - 4.9 mmol/L [facility] Chloride 102 97 - 110 mmol/L [facility] CO2 25 22 - 32 mmol/L [facility] Anion gap 5 2 - 15 mmol/L [facility] BUN 20 6 - 25 mg/dL [facility] Creatinine 0.62(L) 0.80 - 1.30 mg/dL [facility] Glucose 105 70 - 199 mg/dL [facility] Comment: Interpretive Data Fasting glucose >/= [...] 2022. Calcium 8.4(L) 8.5 - 10.3 mg/dL [facility] Bilirubin, total 0.6 0.1 - 1.2 mg/dL [facility] Protein, pl 7.0 6.5 - 8.5 g/dL [facility] Albumin 3.0(L) 3.5 - 5.0 g/dL [facility] Alk phos 80 40 - 130 Units/L [facility] 7 7 - 55 Units/L [facility] AST 13 10 - 50 Units/L [facility] Blood 03/27/2024 1:23 PM HEM INSPECTOR 03/27/2024 1:36 PM HEM INSPECTOR us Evan Mai MD LAB BLOOD ORDERABLES Final Res ult Performing Organization Address [facility] Co de Phone Number [facility] [place] [address] * Transfuse RBC (03/21/2024 8:18 PM HEM INSPECTOR) Blood us Evan Mai MD BLOOD TRANSFUSION ORDERABLES F inal Result * Transfuse RBC (03/21/2024 6:29 PM HEM INSPECTOR) Blood us Evan Mai MD BLOOD TRANSFUSION ORDERABLES F inal Result * Check Sample (03/21/2024 2:48 PM HEM INSPECTOR) ABO Rh A Positive [facility] HCLL OTHER 03/21/2024 2:48 PM HEM INSPECTOR 03/21/2024 3:43 PM HEM INSPECTOR us Evan Mai MD LAB BLOOD ORDERABLES Final Res ult Performing Organization Address City/[facility] Co de Phone Number [facility] [place] [address] [facility] * Prepare RBC: 2 Units (03/21/2024 2:46 PM HEM INSPECTOR) Pathologist [facility] Product code [id number] [facility] Unit Number [id number] T [facility] Product Blood Type APOS [facility] Dispense Status PRESUMED TRANSFUSED [facility] Product code [id number] Unit Number [id number] I [facility] Product Blood Type APOS CAITLIN ANDERSON Dispense Status PRESUMED TRANSFUSED [facility] Blood 03/21/2024 2:46 PM HEM INSPECTOR 03/21/2024 2:45 PM HEM INSPECTOR Narrative [facility] - 03/22/2024 12:55 AM HEM INSPECTOR Are special requirements needed? (All products are leukoreduced and CMV- safe)->Yes Evan Mai MD BLOOD BANK PRODUCT ORDERABLES Final Result [facility] Department [place] [address] * (ABNORMAL) Differential, auto (03/21/2024 1:05 PM HEM INSPECTOR) [facility] Neutrophil abs 0.3(L) 1.5 - 6.5 K/cumm Comment:Testing performed by : [facility], [address] [place], [place] [phone] Lymphocyte abs 0.4(L) 0.8 - 3.3 K/cumm [facility]ER [facility] Comment:Testing performed by : [facility], [address] [place], [place] [phone] Monocyte abs 0.1(L) 0.2 - 0.8 K/cumm [facility]ER [facility] Comment:Testing performed by : [facility], [address] [place] [phone] Eosinophil abs 0.0 0.0 - 0.5 K/cumm [facility] Comment:Testing performed by : [facility], [address] [place], [place] [phone] Basophil abs 0.0 0.0 - 0.1 K/cumm [facility]ER [facility] Comment:Testing performed by : [facility], [address], [place] [phone] Neutrophil pct 36.7 % [facility] Comment: Interpretive Data Percent cell count reference ranges are not reported, since discordance with absolute values may lead to misinterpretation of CBC data. Current Interpretive Data was last revised on 2017. Testing performed by: [facility], [address] [place] [phone] Lymphocyte pct 52.1 % [facility] Comment: Interpretive Data Percent cell count reference ranges are not reported, since discordance with absolute values may lead to misinterpretation of CBC data. Current Interpretive Data was last revised on 2017. Testing performed by: [facility], [address] [place] [phone] Monocyte pct 9.0 % [facility] Comment: Interpretive Data Percent cell count reference ranges are not reported, since discordance with absolute values may lead to misinterpretation of CBC data. Current Interpretive Data was last revised on 2017. Testing performed by: [facility], [address] [place] [phone] Eosinophil pct 0.1 % [facility] Comment: Interpretive Data Percent cell count reference ranges are not reported, since discordance with absolute values may lead to misinterpretation of CBC data. Current Interpretive Data was last revised on 2017. Testing performed by: [facility], [address] [place] [phone] Basophil pct 2.1 % [facility] Comment: Interpretive Data Percent cell count reference ranges are not reported, since discordance with absolute values may lead to misinterpretation of CBC data. Current Interpretive Data was last revised on 2017. Testing performed by: [facility], [address] [place] [phone] Blood 03/21/2024 1:05 PM HEM INSPECTOR 03/21/2024 1:06 PM HEM INSPECTOR us Evan Mai MD LAB BLOOD ORDERABLES Final Res ult [facility] ANDERSON [facility] Department of Laboratories [place] [phone] * (ABNORMAL) CBC with auto differential (03/21/2024 1:05 PM HEM INSPECTOR) WBC 0.7(L) 3.8 - 9.9 K/cumm Comment:Testing performed by : [facility], [address] [place] [address] Hgb 6.5(L) 13.0 - 17.5 g/dL [facility] Comment: Critical Result HGB:6.5 Called to and read back by: GERMAINE ADAMS RN at: 03/21/2024 13:32:52 by:DAVY. Testing performed by: [facility], [address] [place] [address] Hct 19.8(L) 38.9 - 50.3 % [facility] Comment:Testing performed by : [facility], [address] [place] [address] Plt 45(L) 150 - 400 K/cumm [facility]ER [facility] Comment:Testing performed by : [facility], [address] [place] [address] MPV 8.3 6.8 - 10.4 fL [facility] Comment:Testing performed by : [facility], [address] [place] [address] RBC 2.31(L) 4.30 - 5.80 M/cumm [facility] Comment:Testing performed by : [facility], [address] [place] [address] MCV 85.7 81.3 - 96.4 fL [facility] Comment:Testing performed by : [facility], [address] [place] [address] MCH 28.1 27.1 - 33.3 pg [facility] Comment:Testing performed by : [facility], [address] [place] [address] MCHC 32.7 32.3 - 35.7 g/dL [facility] Comment:Testing performed by : [facility], [address] [place] [phone] RDW CV 20.4(H) 11.1 - 14.9 % [facility] Comment:Testing performed by : [facility], [address] [place] [address] NRBC abs 0.00 0.00 - 0.01 K/cumm CAITLIN ANDERSON Comment:Testing performed by : [facility], [facility] [place] [address] Blood 03/21/2024 1:05 PM HEM INSPECTOR 03/21/2024 1:06 PM HEM INSPECTOR us Evan Mai MD LAB BLOOD ORDERABLES Final Res ult [facility] [place] [address] * eGFR (03/21/2024 12:59 PM HEM INSPECTOR) eGFR >90 >=60 mL/min/1. 73 m2 Comment: [...] reviewed 2021. Blood 03/21/2024 12:5 9 PM HEM INSPECTOR 03/21/2024 1:11 PM HEM INSPECTOR Evan Mai MD LAB BLOOD ORDERABLES Final Res ult Performing Organization Address [facility] [place] [address] * (ABNORMAL) CMV, IgG Blood (03/21/2024 12:59 PM HEM INSPECTOR) CMV IgG Positive( A) Negative Comment: Interpretive [...] CMV infection. Blood 03/21/2024 12:5 9 PM HEM INSPECTOR 03/21/2024 2:17 PM HEM INSPECTOR Result [facility] Evan Mai MD LAB MICROBIOLOGY - GENERAL ORD ERABLES Final Result Performing Organization Address [facility] [place] [address] * Type and screen (03/21/2024 12:59 PM HEM INSPECTOR) ABO Rh A Positive Adalgisa, indirect Negative [facility] Blood 03/21/2024 12:5 9 PM HEM INSPECTOR 03/21/2024 1:29 PM HEM INSPECTOR Narrative [facility] - 03/21/2024 2:27 PM HEM INSPECTOR Has the patient had Daratumumab or Isatuximab in the past 6 months?->Unknown us Evan Mai MD LAB BLOOD BANK TEST ORDERABLES Final Result Performing Organization Address City/[facility] Co de Phone Number [facility] [place] [address] * Uric acid (03/21/2024 12:59 PM HEM INSPECTOR) Uric acid 4.7 3.0 - 8.0 mg/dL Blood 03/21/2024 12:5 9 PM HEM INSPECTOR 03/21/2024 1:11 PM HEM INSPECTOR Evan Mai MD LAB BLOOD ORDERABLES Final Res ult Performing Organization Address [facility] [place] [address] * Phosphorus (03/21/2024 12:59 PM HEM INSPECTOR) Phosphorus, pl 4.0 2.3 - 4.5 mg/dL Blood 03/21/2024 12:5 9 PM HEM INSPECTOR 03/21/2024 1:11 PM HEM INSPECTOR Evan Mai MD LAB BLOOD ORDERABLES Final Res ult Performing Organization Address [facility] Co de Phone Number [facility] [place] [address] * Magnesium (03/21/2024 12:59 PM HEM INSPECTOR) Magnesium 2.2 1.4 - 2.5 mg/dL Blood 03/21/2024 12:5 9 PM HEM INSPECTOR 03/21/2024 1:11 PM HEM INSPECTOR us Evan Mai MD LAB BLOOD ORDERABLES Final Res ult Performing Organization Address [facility] Co de Phone Number [facility] [place] [address] * (ABNORMAL) Lactate dehydrogenase (LD) (03/21/2024 12:59 PM HEM INSPECTOR) Lactate dehydrogenase (LDH) 267(H) 100 - 250 Units/L Blood 03/21/2024 12:5 9 PM HEM INSPECTOR 03/21/2024 1:11 PM HEM INSPECTOR Evan Mai MD LAB BLOOD ORDERABLES Final Res ult [facility] [place] [address] * (ABNORMAL) Comprehensive metabolic panel (03/21/2024 12:59 PM HEM INSPECTOR) Pathologist [facility] Sodium 133(L) 135 - 145 mmol/L Potassium, pl 4.7 3.3 - 4.9 mmol/L [facility] Chloride 103 97 - 110 mmol/L [facility] CO2 27 22 - 32 mmol/L [facility] Anion gap 3 2 - 15 mmol/L [facility] BUN 26(H) 6 - 25 mg/dL [facility] Creatinine 0.77(L) 0.80 - 1.30 mg/dL [facility] Glucose 119 70 - 199 mg/dL [facility] Comment: Interpretive Data Fasting glucose >/= [...] 2022. Calcium 9.2 8.5 - 10.3 mg/dL [facility] Bilirubin, total 0.4 0.1 - 1.2 mg/dL [facility] Protein, pl 8.5 6.5 - 8.5 g/dL [facility] Albumin 3.2(L) 3.5 - 5.0 g/dL [facility] Alk phos 88 40 - 130 Units/L [facility] ALT 5(L) 7 - 55 Units/L [facility] AST 14 10 - 50 Units/L [facility] Blood 03/21/2024 12:5 9 PM HEM INSPECTOR 03/21/2024 1:11 PM HEM INSPECTOR us Evan Mai MD LAB BLOOD ORDERABLES Final Res ult [facility] [place] [address] from Last 3 Months Insurance [employer] OPEN ACCESS [employer] OPEN ACCESS Care 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
--- OUTSIDE RECORDS SUMMARY | 2024-04-20 02:20 | XMS_ITS | Encounter Summary ---
Author Organization [facility] Address [address] [place] [address] Phone Care Team Providers Care Ocular Care Technologist Name Role Phone Yaya Britt MD Primary Care Provider [phone] Kaleb Tomlin MD Unavailable [phone] Evan Mai MD Unavailable [phone] Encounter Details Date Type Department Care Team (Late st Contact Info) Description 03/20/[address] 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 documented in this encounter Orders Appointment Requests Count Last Ordered Date Fi rst Ordered Date ONCBCN BLOOD TRANSFUSION APPT 1 03/21/2024 ONCBCN PLATELET TRANSFUSION APPT 1 03/21/20 documented in this encounter Care Teams Ocular Care Technologist Relationship Specialty Start Date End Date Yaya Britt MD PCP - General 07/31/16 Kaleb Tomlin MD [address] [phone] Referring Physician Hematology 02/29/24 Evan Mai MD [address] [facility] [address] DIV IM B[place] [address] Consulting Physician Internal Medicine 03/01/24 documented as of this encounter
--- OUTSIDE RECORDS SUMMARY | 2024-04-20 02:20 | XMS_ITS | Encounter Summary ---
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 Patient hasn't had a repeat lab or follow up appt. Dale Broussard cancel surgery untilpatient is seen and cleared by PCP. Called patient and canceled surgery and advised him again to call PCP today for appointment * Telephone Encounter - Yahaira Lauren - 01/31/2024 1:33 PM CDT Images from the original note were not included. Lul Yusuf MD to Ebenezer Ruggiero ATC Nd 12/30/23 9:37 AM Please call PCP and patient and let them know the critical apps. If he has a surgery date we will have to change that. Ebenezer Ruggiero ATC 12/30/23 10:25 AM Note Called [facility] after contacting Dr. Yaya Britt's office to let him know that we received his lab results and they are extremely low. I let him know that we faxed the lab results to Dr. Britt'soffice per their request and they would be contacting him with instructions/plan of care. He did report that he is feeling fatigued and cold and feels feverish. He was instructed to call our office back with any needs that he had. * Telephone Encounter - Maral Lamb - 01/27/2024 12:58 PM CDT Patient called in wanting to let Paz know that he only sees 3 doctors and not 4. PCP: Lorenza Crouch Urology: Dr. Lopez.. * Telephone Encounter - Esthela Snow MA - 12/27/2023 2:01 PM CDT Noted and updated. * Telephone Encounter - Paola Grady MA - 12/24/2023 10:08 AM CDT 1. Have you ever had a total joint replacement before? no 2. Have you ever had a problem with anesthesia? no 3. Do you have anyone at home who can care for you? yes 4. Do you have a preference of home health or outpatient therapy for the first two weeks? Outpatient physical therapy 5. Lower extremity only Do you own a walker? Patient has a cane but no walker 6. What Pharmacy do you prefer - [facility] 7. What outpatient therapy location do you prefer - [facility] Procedure: left total knee replacement DOS: 02/23/24 Surgery Clearance Checklist: [x] PCP: Yaya Britt [x] Cardiology: Haydee Obregon [] Endocrinology: [] Pulmonology: [] Neurology: [] Other: Blood Thinner: [] Yes Name of medication: [x] No Is patient a Diabetic: [] Yes [x] No Preferred Outpatient Physical Therapy location: [facility] Reviewed with patient surgery clearance requirements that forms must be returned to our office no later than 72 hours prior to surgery. Later than 72 hours may cause patients surgery to be cancelled and/or rescheduled. Reviewed with patient that appointments with the above provider should be scheduled in a timely manner, and recommend appointments be made no later than 3 weeks prior to surgery. For Total Arthoplasty Surgery: Reviewed with patient labs to be completed prior to surgery, advisedthese must be completed no more than 30 days prior to surgery. Patient was advised to completely these early on in the 30 day window to allow time to address abnormal results if they arise. Labs are to be completed at: [facility] Medications to be discontinued prior to surgery were reviewed with patient, and hand out provided listing when to stop prior to surgery. Patient instructed to contact PCP and/or prescribing provider with questions about when to discontinue prior to surgery. For blood thinners, patient was instructed to speak with prescribing provider about when to discontinue and was advised our office needs documentation on when to stop prior to surgery. This can be completed on the form provided for the patient. Reviewed with patient use of surgical soap prior to surgery. Patient was instructed to use the evening before and the morning of surgery. Advised to not wash hair, face, genital, or rectal area. Patient expressed full understanding of the above in preparation for surgery. Patient was advised to contact our office if any questions or concerns arise prior to surgery. MA/ATC Name: Paola documented in this encounter Plan of Treatment Not on file documented as of this encounter Visit Diagnoses Not on filedocumented in this encounter Care Teams Application Dba Relationship Specialty Start Date End Date Yaya Britt MD PCP - General 07/31/16 documented as of this encounter
--- OUTSIDE RECORDS SUMMARY | 2024-04-20 02:20 | XMS_ITS | Encounter Summary ---
Author Organization [facility] Healthcare Address [address] [place] [address] Care Team Providers Care City Maintenance Manager Name Role Phone Yaya Britt MD Primary Care Provider [phone] Kaleb Tomlin MD Unavailable [phone] Evan Mai MD Unavailable [phone] Encounter Details Date Type Department Care Team (Late st Contact Info) Description 03/21/2024 12:45 PM ASSOCIATE Lab [facility] - Lab Collection [address] [facility] Floor 6 [place] [address] 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 having achieved remission [...] on file Legal Sex Male 2:01 AM ASSOCIATE Gender Identity Not on file Sexual Orientation Not on file documented as of this encounter Plan of Treatment Not on file documented as of this encounter Procedures Procedure Name Priority Date/Time Associated Diagnosis Comments B CHECK SAMPLE STAT 03/21/2024 2:48 PM ASSOCIATE DIFFERENTIAL AUTO STAT 03/21/2024 1:0 5 PM ASSOCIATE 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 having achieved remission (HCC) CBC WITH AUTO DIFFERENTIAL STAT 03/21/2024 1:05 PM ASSOCIATE 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 having achieved remission (HCC) EGFR STAT 03/21/2024 12:59 PM ASSOCIATE 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 having achieved remission (HCC) CMV, IGG STAT 03/21/2024 12:59 PM ASSOCIATE 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 having achieved remission (HCC) TYPE AND SCREEN STAT 03/21/2024 12:59 PM ASSOCIATE 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 having achieved remission (HCC) URIC ACID Routine 03/21/2024 12:59 PM ASSOCIATE 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 having achieved remission (HCC) PHOSPHORUS Routine 03/21/2024 12:59 PM ASSOCIATE 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 having achieved remission (HCC) MAGNESIUM Routine 03/21/2024 12:59 PM ASSOCIATE 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 having achieved remission (HCC) LACTATE DEHYDROGENASE STAT 03/21/2024 12:59 PM ASSOCIATE 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 having achieved remission (HCC) COMPREHENSIVE METABOLIC PANEL STAT 03/21/2024 12:59 PM ASSOCIATE 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 having achieved remission (HCC) documented in this encounter Results * Check Sample (03/21/2024 2:48 PM ASSOCIATE) ABO Rh A Positive [facility] OTHER 03/21/2024 2:48 PM ASSOCIATE 03/21/2024 3:43 PM ASSOCIATE us Evan Mai MD LAB BLOOD ORDERABLES Final Res ult [facility] One [facility] Department of Laboratories [place], [place] [address] [facility] * (ABNORMAL) Differential, auto (03/21/2024 1:05 PM ASSOCIATE) Neutrophil abs 0.3(L) 1.5 - 6.5 K/cumm Comment:Testing performed by : [facility]e [facility], [address] [place], [place] [id number] Lymphocyte abs 0.4(L) 0.8 - 3.3 K/cumm [facility] Comment:Testing performed by : [facility], [address] [place] [address] Monocyte abs 0.1(L) 0.2 - 0.8 K/cumm [facility] Comment:Testing performed by : [facility], [address] [place], [place] [id number] Eosinophil abs 0.0 0.0 - 0.5 K/cumm [facility] Comment:Testing performed by : [facility], [address] [place] [address] Basophil abs 0.0 0.0 - 0.1 K/cumm [facility]J Comment:Testing performed by : [facility], [address] [place] [address] Neutrophil pct 36.7 % [facility] Comment: Interpretive Data Percent cell count reference ranges are not reported, since discordance with absolute values may lead to misinterpretation of CBC data. Current Interpretive Data was last revised on 2017. Testing performed by: [facility], [address] [place] [address] Lymphocyte pct 52.1 % [facility] Comment: Interpretive Data Percent cell count reference ranges are not reported, since discordance with absolute values may lead to misinterpretation of CBC data. Current Interpretive Data was last revised on 2017. Testing performed by: [facility], [address] [place] [address] Monocyte pct 9.0 % [facility] Comment: Interpretive Data Percent cell count reference ranges are not reported, since discordance with absolute values may lead to misinterpretation of CBC data. Current Interpretive Data was last revised on 2017. Testing performed by: [facility], [address] [place] [phone] Eosinophil pct 0.1 % [facility] Comment: Interpretive Data Percent cell count reference ranges are not reported, since discordance with absolute values may lead to misinterpretation of CBC data. Current Interpretive Data was last revised on 2017. Testing performed by: [facility], [address] [place] [phone] Basophil pct 2.1 % [facility] Comment: Interpretive Data Percent cell count reference ranges are not reported, since discordance with absolute values may lead to misinterpretation of CBC data. Current Interpretive Data was last revised on 2017. Testing performed by: [facility], [address] [place] [phone] Blood 03/21/2024 1:05 PM ASSOCIATE 03/21/2024 1:06 PM ASSOCIATE Evan Mai MD LAB BLOOD ORDERABLES Final Res ult [facility] One [facility] [place] [address] * (ABNORMAL) CBC with auto differential (03/21/2024 1:05 PM ASSOCIATE) WBC 0.7(L) 3.8 - 9.9 K/cumm Comment:Testing performed by : [facility], [address] [place] [phone] Hgb 6.5(L) 13.0 - 17.5 g/dL [facility] Comment: Critical Result HGB:6.5 Called to and read back by: GERMAINE SEGUNDO RN at: 03/21/2024 13:32:52 by:DAVY. Testing performed by: [facility], [address] [place] [phone] Hct 19.8(L) 38.9 - 50.3 % [facility]LIN [facility]ERSON Comment:Testing performed by : [facility], [address] [place] [address] Plt 45(L) 150 - 400 K/cumm [facility] Comment:Testing performed by : [facility], [address] [place] [address] MPV 8.3 6.8 - 10.4 fL [facility] Comment:Testing performed by : [facility], [address] [place], [place] [phone] RBC 2.31(L) 4.30 - 5.80 M/cumm [facility] Comment:Testing performed by : [facility], [address] [place] [address] MCV 85.7 81.3 - 96.4 fL [facility] Comment:Testing performed by : [facility], [address] [place], [place] [phone] MCH 28.1 27.1 - 33.3 pg [facility] Comment:Testing performed by : [facility], [address] [place] [address] MCHC 32.7 32.3 - 35.7 g/dL [facility] Comment:Testing performed by : [facility], [address] [place] [address] RDW CV 20.4(H) 11.1 - 14.9 % [facility] Comment:Testing performed by : [facility], [address] [place] [address] NRBC abs 0.00 0.00 - 0.01 K/cumm [facility] Comment:Testing performed by : [facility], [address] [place] [address] Blood 03/21/2024 1:05 PM ASSOCIATE 03/21/2024 1:06 PM ASSOCIATE us Evan Mai MD LAB BLOOD ORDERABLES Final Res ult [facility] [place] [address] * eGFR (03/21/2024 12:59 PM ASSOCIATE) eGFR >90 >=60 mL/min/1. 73 m2 Comment: [...] reviewed 2021. Blood 03/21/2024 12:5 9 PM ASSOCIATE 03/21/2024 1:11 PM ASSOCIATE us Evan Mai MD LAB BLOOD ORDERABLES Final Res ult [facility] [place] [address] * Uric acid (03/21/2024 12:59 PM ASSOCIATE) Uric acid 4.7 3.0 - 8.0 mg/dL Blood 03/21/2024 12:5 9 PM ASSOCIATE 03/21/2024 1:11 PM ASSOCIATE Evan Mai MD LAB BLOOD ORDERABLES Final Res ult Performing Organization Address City/[facility] [place] [address] * Magnesium (03/21/2024 12:59 PM ASSOCIATE) Pathologist [facility] Magnesium 2.2 1.4 - 2.5 mg/dL Blood 03/21/2024 12:5 9 PM ASSOCIATE 03/21/2024 1:11 PM ASSOCIATE Evan Mai MD LAB BLOOD ORDERABLES Final Res ult Performing Organization Address [facility] Co de Phone Number [facility] [place] [address] * Phosphorus (03/21/2024 12:59 PM ASSOCIATE) Pathologist [facility] Phosphorus, pl 4.0 2.3 - 4.5 mg/dL Blood 03/21/2024 12:5 9 PM ASSOCIATE 03/21/2024 1:11 PM ASSOCIATE Evan Mai MD LAB BLOOD ORDERABLES Final Res ult Performing Organization Address [facility] de Phone Number [facility] [place] [address] * (ABNORMAL) CMV, IgG Blood (03/21/2024 12:59 PM ASSOCIATE) [facility] CMV IgG Positive( A) Negative Comment: Interpretive [...] CMV infection. Blood 03/21/2024 12:5 9 PM ASSOCIATE 03/21/2024 2:17 PM ASSOCIATE Evan Mai MD LAB MICROBIOLOGY - GENERAL ORD ERABLES Final Result Performing Organization Address City/[facility]/ZIP Co de Phone Number [facility] Department [place] [address] * Type and screen (03/21/2024 12:59 PM ASSOCIATE) [facility] ABO Rh A Positive Adalgisa, indirect Negative [facility] Blood 03/21/2024 12:5 9 PM ASSOCIATE 03/21/2024 1:29 PM ASSOCIATE Narrative [facility] - 03/21/2024 2:27 PM ASSOCIATE Has the patient had Daratumumab or Isatuximab in the past 6 months?->Unknown Evan Mai MD LAB BLOOD BANK TEST ORDERABLES Final Result Performing Organization Address [facility] Co de Phone Number [facility] Department [place] [address] * (ABNORMAL) Comprehensive metabolic panel (03/21/2024 12:59 PM ASSOCIATE) [facility] Sodium 133(L) 135 - 145 mmol/L Potassium, pl 4.7 3.3 - 4.9 mmol/L [facility] Chloride 103 97 - 110 mmol/L [facility] CO2 27 22 - 32 mmol/L [facility] Anion gap 3 2 - 15 mmol/L [facility] BUN 26(H) 6 - 25 mg/dL [facility] Creatinine 0.77(L) 0.80 - 1.30 mg/dL [facility] Glucose 119 70 - 199 mg/dL [facility] Comment: Interpretive Data Fasting glucose >/= 126 [...] 2022. Calcium 9.2 8.5 - 10.3 mg/dL [facility] Bilirubin, total 0.4 0.1 - 1.2 mg/dL [facility] Protein, pl 8.5 6.5 - 8.5 g/dL [facility] Albumin 3.2(L) 3.5 - 5.0 g/dL [facility] Alk phos 88 40 - 130 Units/L [facility] ALT 5(L) 7 - 55 Units/L [facility] AST 14 10 - 50 Units/L [facility] Blood 03/21/2024 12:5 9 PM ASSOCIATE 03/21/2024 1:11 PM ASSOCIATE Evan Mai MD LAB BLOOD ORDERABLES Final Res ult Performing Organization Address City/[facility]/ZIP Co de Phone Number [facility] Department [place] [address] * (ABNORMAL) Lactate dehydrogenase (LD) (03/21/2024 12:59 PM ASSOCIATE) Lactate dehydrogenase (LDH) 267(H) 100 - 250 Units/L Blood 03/21/2024 12:5 9 PM ASSOCIATE 03/21/2024 1:11 PM ASSOCIATE Evan Mai MD LAB BLOOD ORDERABLES Final Res ult [facility] Department [place] [address] documented in this encounter Visit Diagnoses Diagnosis 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 having achieved remission (HCC) documented in this encounter Care Teams City Maintenance Manager Relationship Specialty Start Date End Date Yaya Britt MD PCP - General 07/31/16 Kaleb Tomlin MD [address] [address] Referring Physician Hematology 02/29/24 Evan Mai MD [address] [facility] [address] DIV [place] [address] Consulting Physician Internal Medicine 03/01/24 documented as of this encounter
--- OUTSIDE RECORDS SUMMARY | 2024-04-20 02:20 | XMS_ITS | Encounter Summary ---
Author Organization [facility] Healthcare Address [address] [place] [address] Care Team Providers Care Hat Brim And Crown Laminating Operator Name Role Phone Yaya Britt MD Primary Care Provider [phone] Reason for Visit * Diagnostic Imaging (Routine) - Closed Specialty Diagnoses / Procedures Referred By Contac t Referred To Contact Diagnoses Left knee pain, unspecified chronicity Procedures XR Knee Left 4 or More Views Lul Yusuf MD [address] [place] [address] [address] [address] Phone: tel: fax: [facility] Referral ID Status Reason Start Date Expiration Date Visits Re quested Visits Authorized [id number] Closed 12/24/2023 01/22/2025 1 1 Encounter Details Date Type Department Care Team (Latest Contact Info) Description 12/24/2023 8:55 AM CDT Ancillary Procedure [facility] Imaging at [address] [phone] Left knee pain, unspecified chronicity Social History Tobacco Use Types Packs/Day Years [...] on file 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 Gender Identity Not on file Sexual Orientation Not on file documented as of this encounter Plan of Treatment Not on file documented as of this encounter Procedures Procedure Name Priority Date/Time Associated Diagnosis Comments XR KNEE LEFT 4 OR MORE VIEWS Schedule Routine, Read Routine (OP Routine) 12/24/2023 9:22 AM CDT Left knee pain, unspecified chronicity documented in this encounter Results * XR Knee Left 4 or More Views (12/24/2023 9:22 AM CDT) Anatomical Region Laterality Modality Lower Extremities, Knee Left Digital Radiography Narrative 12/24/2023 9:35 AM CDT Four views left knee show severe end-stage osteoarthritis with subluxation of the femur on the tibia no joint space subchondral sclerosis severe varus deformity us Lul Yusuf MD IMG XR PROCEDURES Final Resu lt documented in this encounter Visit Diagnoses Diagnosis Left knee pain, unspecified chronicity documented in this encounter Care Teams Hat Brim And Crown Laminating Operator Relationship Specialty Start Date End Date Yaya Britt MD PCP - General 07/31/16 documented as of this encounter
--- OUTSIDE RECORDS SUMMARY | 2024-04-20 02:20 | XMS_ITS | Encounter Summary ---
Author Organization [facility] Healthcare Address [address] [place] [address] Care Team Providers Care Race Engine Builder Name Role Phone Yaya Britt MD Primary Care Provider [phone] Reason for Referral * MRI/CAT/PET Scan (Routine) - Closed Specialty Diagnoses / Procedures Referred By Contac t Referred To Contact Radiology Diagnoses Heart failure with reduced ejection fraction (CMS/HCC) (HCC) Atrial fibrillation, unspecified type (HCC) MORA (dyspnea on exertion) Procedures CTA Heart and Coronary Arteries W Morphology when Performed Haydee Obregon MD [address] [address] Phone: tel: fax: [address] [address] Referral ID Status Reason Start Date Expiration Date Visits Re quested Visits Authorized [id number] Closed 09/22/2023 10/22/2023 1 1 Encounter Details Date Type Department Care Team (Late st Contact Info) Description 08/26/[address] 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 * Telephone Encounter - Brooklyn Cox - 08/27/2023 12:15 PM CDT Pt requesting a letter stating pt is okay to return to work be emailed to his employer. Email: [email or web address] Contact:[phone] * Telephone Encounter - Christina Shore RN - 08/27/2023 11:54 AM CDT Pt scheduled for CTA on September 21 at 9:20 am. Pt to arrive 30 minutes early to 3rd floor of [facility], NPO 2hours prior, no caffeine the day of. Pt aware and verbalizes understanding. * Telephone Encounter - Christina Shore RN - 08/27/2023 11:51 AM CDT Spoke with pt, reviewed response below from RP. Paperwork completed and awaiting RP signature. Willget pt scheduled for coronary CTA. * Addendum Note - Christina Shore RN - 08/27/2023 11:49 AM CDTAddended by: CHRISTINA SHORE on: 08/27/2023 11:49 AM Modules accepted: Orders * Telephone Encounter - Christina Shore RN - 08/27/2023 10:46 AM CDT Spoke with pt, reviewed result note from RP below. Pt appreciative of return call. Pt wondering if he is able to go back to work or is able to continue to be off. Pt dropped of disability paperwork yesterday to the office. 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 Will forward to RP. Please advise. * Telephone Encounter - Christina Shore RN - 08/27/2023 9:34 AM CDT Echo report faxed to LISA. * Telephone Encounter - Christina Shore RN - 08/26/2023 3:07 PM CDT Message sent to Homar with Lisa. Pt here for echo today. Will await results. Forwarding to RP. Homar would like results of echo faxed when completed to [phone]. * Telephone Encounter - Nadine Sheridan - 08/26/2023 2:52 PM CDT Patient came into the office for an ECHO and to drop off FMLA paperwork for Dr. Obregon to complete. Patient also wanted to let Dr. Obregon know his insurance will no longer cover his life vest and he cannot afford to continue to wear it. I informed patient I would send a message to the nurses. Patientunderstood. documented in this encounter Plan of Treatment Scheduled Orders Name Type Priority Associated Diagnoses Orde r Schedule CTA Heart and Coronary Arteries W Morphology when Performed Imaging Schedule Routine, Read Routine (OP Routine) Heart failure with reduced ejection fraction (CMS/HCC) (HCC) Atrial fibrillation, unspecified type (HCC) MORA (dyspnea on exertion) Expected: 08/27/2023, Expires: 08/26/2024 documented as of this encounter Visit Diagnoses Diagnosis Heart failure with reduced ejection fraction (CMS/HCC) (HCC)- Primary Atrial fibrillation, unspecified type (HCC) MORA (dyspnea on exertion) Other dyspnea and respiratory abnormality documented in this encounter Care Teams Race Engine Builder Relationship Specialty Start Date End Date Yaya Britt MD PCP - General 07/31/16 documented as of this encounter
--- OUTSIDE RECORDS SUMMARY | 2024-04-20 02:20 | XMS_ITS | Encounter Summary ---
Author Organization [facility] Healthcare Address [address] [place] [address] Care Team Providers Care Infrastructure Software Engineer Name Role Phone Yaya Britt MD Primary Care Provider [phone] Kaleb Tomlin MD Unavailable [phone] Evan Mai MD Unavailable [phone] Reason for Visit * Reason Comments OP Infusion Encounter Details Date Type Department Care Team (Late st Contact Info) Description 03/21/2024 5:30 PM FOREST PATHOLOGY TEACHER Infusion [facility] - Infusion [address] [facility] [address] [place] [address] Anemia, unspecified type (Primary Dx); Acute myeloid [...] on file Legal Sex Male 2:01 AM FOREST PATHOLOGY TEACHER Gender Identity Not on file Sexual Orientation Not on file documented as of this encounter Last Filed Vital Signs Vital Sign Reading Time Taken Comments Blood Pressure 108/64 03/21/2024 6:49 PM FOREST PATHOLOGY TEACHER Pulse 58 03/21/2024 6:49 PM FOREST PATHOLOGY TEACHER Temperature 36.6 ??C (97.9 ??F) 03/21/2024 6:49 PM CS T Respiratory Rate 18 03/21/2024 5:10 PM FOREST PATHOLOGY TEACHER Oxygen Saturation 99% 03/21/2024 6:49 PM FOREST PATHOLOGY TEACHER Inhaled Oxygen Concentration - - Weight - - Height - - Body Mass Index - - documented in this encounter Plan of Treatment Not on file documented as of this encounter Procedures Procedure Name Priority Date/Time Associated Diagnosis Comments TRANSFUSE RED BLOOD CELLS Timed 03/21/2024 6:29 PM FOREST PATHOLOGY TEACHER 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 having achieved remission (HCC) Anemia, unspecified type TRANSFUSE RED BLOOD CELLS Timed 03/21/2024 4:55 PM FOREST PATHOLOGY TEACHER 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 having achieved remission (HCC) Anemia, unspecified type PREPARE RBC Timed 03/21/2024 2:46 PM FOREST PATHOLOGY TEACHER 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 having achieved remission (HCC) Anemia, unspecified type documented in this encounter Results * Transfuse RBC (03/21/2024 8:18 PM FOREST PATHOLOGY TEACHER) Blood Evan Mai MD BLOOD TRANSFUSION ORDERABLES F inal Result * Transfuse RBC: 2 Units (03/21/2024 8:18 PM FOREST PATHOLOGY TEACHER) Blood Evan Mai MD BLOOD TRANSFUSION ORDERABLES F inal Result * Transfuse RBC (03/21/2024 6:29 PM FOREST PATHOLOGY TEACHER) Blood Evan Mai MD BLOOD TRANSFUSION ORDERABLES F inal Result * Prepare RBC: 2 Units (03/21/2024 2:46 PM FOREST PATHOLOGY TEACHER) Product code [id number] [facility] Unit Number [id number] T [facility] Product Blood Type APOS [facility] Dispense Status PRESUMED TRANSFUSED [facility] Product code [id number] Unit Number [id number] I [facility] Product Blood Type APOS [facility] Dispense Status PRESUMED TRANSFUSED [facility] Blood 03/21/2024 2:46 PM FOREST PATHOLOGY TEACHER 03/21/2024 2:45 PM FOREST PATHOLOGY TEACHER Narrative CAITLIN ANDERSON - 03/22/2024 12:55 AM FOREST PATHOLOGY TEACHER Are special requirements needed? (All products are leukoreduced and CMV- safe)->Yes Evan Mai MD BLOOD BANK PRODUCT ORDERABLES Final Result [facility] Department [place] [address] documented in this encounter Visit Diagnoses Diagnosis Anemia, unspecified type- Primary 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 having achieved remission (HCC) documented in this encounter Orders Nursing Count Last Ordered Date First Orde red Date ONCBCN NURSING COMMUNICATION [id number] 1 05/21/2023 ONCBCN VITAL SIGNS/EKG/PK 2 1 03/21/2024 VITAL SIGNS 1 03/21/2024 Appointment Requests Count Last Ordered Date Fi rst Ordered Date ONCBCN BLOOD TRANSFUSION APPT 1 03/21/2024 documented in this encounter Care Teams Infrastructure Software Engineer Relationship Specialty Start Date End Date Yaya Britt MD PCP - General 07/31/16 Kaleb Tomlin MD [address] [address] Referring Physician Hematology 02/29/24 Evan Mai MD [address] [facility] [address] [facility] [place] [address] Consulting Physician Internal Medicine 03/01/24 documented as of this encounter
--- OUTSIDE RECORDS SUMMARY | 2024-04-20 02:20 | XMS_ITS | Encounter Summary ---
Author Organization [facility] Address [address] [place] [address] Phone Care Team Providers Care Equipment Operator Intermodal Yard Name Role Phone Yaya Britt MD Primary Care Provider [phone] Kaleb Tomlin MD Unavailable [phone] Evan Mai MD Unavailable [phone] Reason for Referral * Diagnostic Lab (Routine) - Denied Specialty Diagnoses / Procedures Referred By Taco crawford Referred To Contact Lab Diagnoses 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 having achieved remission (HCC) Procedures ChromoSeq - Heme Genetic Profiling (WGS) with interpretation Bone marrow Evan Mai MD [address] [place] [address] Phone: tel: fax: Referral ID Status Reason Start Date Expiration Date Visits Re quested Visits Authorized [id number] Denied 03/21/2024 04/20/2025 1 0 ESTATE LEGAL ASSISTANT * Diagnostic Lab (Routine) - Denied Specialty Diagnoses / Procedures Referred By Taco crawford Referred To Contact Lab Diagnoses 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 having achieved remission (HCC) Procedures Diagnosis MyeloSeq Heme NGS Panel with Interpretation Bone marrow Evan Mai MD [address] [place] [address] Phone: tel: fax: Referral ID Status Reason Start Date Expiration Date Visits Re quested Visits Authorized [id number] Denied 03/21/2024 04/20/2025 1 0 ESTATE LEGAL ASSISTANT * (Routine) - Pending Review Specialty Diagnoses / Procedures Referred By Taco crawford Referred To Contact Diagnoses 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 having achieved remission (HCC) Procedures Hematologic Molecular Algorithm Bone marrow Evan Mai MD [address] [place] [address] Phone: tel: fax: Referral ID Status Reason Start Date Expiration Date V isits Requested Visits Authorized [id number] Pending Review 03/21/2024 04/20/2025 1 1 ESTATE LEGAL ASSISTANT * Diagnostic Lab (Routine) - Pending Review Specialty Diagnoses / Procedures Referred By Taco crawford Referred To Contact Lab Diagnoses 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 having achieved remission (HCC) Procedures Cytogenetics Bone marrow Evan Mai MD [address] [place] [address] Phone: tel: fax: Referral ID Status Reason Start Date Expiration Date V isits Requested Visits Authorized [id number] Pending Review 03/21/2024 04/20/2025 1 1 ESTATE LEGAL ASSISTANT * Procedure (Routine) - Closed Specialty Diagnoses / Procedures Referred By Taco crawford Referred To Contact Diagnoses 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 having achieved remission (HCC) Procedures Biopsy bone marrow Evan Mai MD [address] [place] [address] Phone: tel: fax: [facility] (All Locations) Referral ID Status Reason Start Date Expiration Date Visits Re quested Visits Authorized [id number] Closed 03/21/2024 04/20/2025 1 1 ESTATE LEGAL ASSISTANT Encounter Details Date Type Department Care Team (Late st Contact Info) Description 03/21/2024 Orders Only [facility] Bone Marrow Transplant [address] [place] [address] Donis Adams RN 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 [...] on file Legal Sex Male 2:01 AM REAL ESTATE LEGAL ASSISTANT Gender Identity Not on file Sexual Orientation Not on file documented as of this encounter Plan of Treatment Scheduled Orders Name Type Priority Associated Diagnoses Orde r Schedule Biopsy bone marrow Procedures Routine 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 having achieved remission (HCC) Expected: 03/22/2024, Expires: 03/21/2025 documented as of this encounter Results * ChromoSeq tracking order Bone marrow (03/27/2024 2:13 PM REAL ESTATE LEGAL ASSISTANT) ChromoSeq Tracking Order Received Bone marrow 03/27/2024 2:13 PM REAL ESTATE LEGAL ASSISTANT 03/27/2024 5:26 PM REAL ESTATE LEGAL ASSISTANT Narrative [facility] ANDERSON - 03/28/2024 9:48 AM REAL ESTATE LEGAL ASSISTANT Specimen type (select one):->Marrow us Evan Mai MD LAB BODY FLUIDS AND STOOLS ORD ERABLES Final Result [facility]ITLIN ANDERSON [facility] Department [place] [address] * ChromoSeq - Heme Genetic Profiling (WGS) with interpretation Bone marrow (03/27/2024 2:13 PM REAL ESTATE LEGAL ASSISTANT) Bone marrow (Bone Marrow Biopsy) 03/27/2024 2:13 PM REAL ESTATE LEGAL ASSISTANT 03/28/2024 9:45 AM REAL ESTATE LEGAL ASSISTANT Narrative [facility] - 04/11/2024 10:20 PM REAL ESTATE LEGAL ASSISTANT [facility] Pathology Services [address] [place] [address] Final Report Patient Name: KELLEE PALACIOS SR. Address: [address] [place] [address] Gender: M : 1960 (Age: 63) Accessioned: 03/28/2024 Taken: 03/27/2024 Received: 03/28/2024 Physician(s): Evan Morataya MD Service: [facility] Location: [facility] #: [id number] Patient Type: [facility] VisysoSeq Molecular DiagnosticsReported:04/11/2024 Tissue type: Bone Marrow Stated [...] identified, consistent with the corresponding cytogenetic studies ([id number]) and a complex karyotype. In addition, a [...] ORDERABLES Final Result Performing Organization Address City/[facility]/ZIP Co de Phone Number [facility] [address] [place] [address] * MyeloSeq tracking order Bone marrow (03/27/2024 2:13 PM REAL ESTATE LEGAL ASSISTANT) MyeloSeq Received Bone marrow 03/27/2024 2:13 PM REAL ESTATE LEGAL ASSISTANT 03/27/2024 5:26 PM REAL ESTATE LEGAL ASSISTANT Narrative [facility] - 03/28/2024 9:48 AM REAL ESTATE LEGAL ASSISTANT Specimen type (select one):->Marrow Evan Mai MD LAB BODY FLUIDS AND STOOLS ORD ERABLES Final Result [facility] Department [place] [address] * Diagnosis MyeloSeq Heme NGS Panel with Interpretation Bone marrow (03/27/2024 2:13 PM REAL ESTATE LEGAL ASSISTANT) Bone marrow (Bone Marrow Biopsy) 03/27/2024 2:13 PM REAL ESTATE LEGAL ASSISTANT 03/28/2024 9:45 AM REAL ESTATE LEGAL ASSISTANT Narrative [facility] - 04/12/2024 10:35 PM REAL ESTATE LEGAL ASSISTANT [facility] Pathology Services [address] [place] [address] Final Report Patient Name: KELLEE PALACIOS SR. Address: [address] [place] [address] Gender: M : 1960 (Age: 63) Accessioned: 03/28/2024 Taken: 03/27/2024 Received: 03/28/2024 Physician(s): Evan Morataya MD Service: [facility] Location: [facility] #: [id number] Patient Type: [facility] MyeloSeq Molecular DiagnosticsReported:04/12/2024 Varients Detected: ? [...] presents for evaluation. 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 Corresponding cytogenetic studies ([id number]) show a complex karyotype. Specimen site: Bone marrow Variant Detail: ? Gene ? Location (GR38) ? Reference allele ? Variant allele ? Transcript:Coding change ? Population Frequency* ? TP53 ? [id number] ? C ? T ? [id number]:c.517G>A ? none*The population allele frequency represents the [...] the CLIA Licensed Environment laboratory at the [facility] ([facility], CLIA #[id number], CAP #[id number]), Dr. Sammy Johnson MD, PhD, [facility], Horseback Excavator. [address] [place], [place] [address] . The [facility] laboratory is regulated under CLIA as certified to perform high-complexity testing. Interpretation of sequencing results and case sign out is performed by Pathology and Immunology faculty in the Division of Genomic and Molecular Pathology ([facility], CLIA #[id number], CAP #[id number]) Dr. Sujatha Littlejohn Ph.D., Horseback Excavator. Clinical Genomics Laboratory, [facility] [facility], [facility] [address], [place] [address] [phone] . The [facility] Laboratory is regulated [...] 30GBases of sequencing data generated on an [employer] X Plus. This test has been validated according to CAP guidelines for the detection of single nucleotide variants (SNVs) and indels (max validated size 117bp). This assay has two limits of detection: for new variants (not previously reported by SCVN[facility]oSeq) sensitivity is limited to 2% VAF; for [...] Such information and correlations are subject to changer fixer time in response to future scientific and [...] [facility] [address] [place] [address] * Hematologic Molecular Algorithm Bone marrow (03/27/2024 2:13 PM REAL ESTATE LEGAL ASSISTANT) Heme Molecular Algorithm Received Bone marrow 03/27/2024 2:13 PM REAL ESTATE LEGAL ASSISTANT 03/28/2024 9:29 AM REAL ESTATE LEGAL ASSISTANT Narrative [facility] - 04/05/2024 11:34 AM REAL ESTATE LEGAL ASSISTANT Tube information: [employer] top Clinical History / Treatment Plan:->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 Select diagnosis - - Appropriate molecular tests will be performed based on histopathological diagnosis.->AML 04/02/2024 - HMA complete, no additional testing indicated. Evan Mai MD LAB BODY FLUIDS AND STOOLS ORD ERABLES Final Result Performing Organization Address [facility] Co de Phone Number [facility] [place] [address] * Cytogenetics Specimen Tracking Bone marrow (03/27/2024 2:13 PM REAL ESTATE LEGAL ASSISTANT) Cytotenetics Tracking Order Received Bone marrow 03/27/2024 2:13 PM REAL ESTATE LEGAL ASSISTANT 03/27/2024 5:26 PM REAL ESTATE LEGAL ASSISTANT Narrative [facility] - 03/28/2024 9:48 AM REAL ESTATE LEGAL ASSISTANT Please read the Cytogenetics Epic requisition for specimen collection requirements. Evan Mai MD LAB BODY FLUIDS AND STOOLS ORD ERABLES Final Result Performing Organization Address [facility] Co de Phone Number [facility] [place] [address] * Cytogenetics Bone marrow (03/27/2024 2:13 PM REAL ESTATE LEGAL ASSISTANT) Bone marrow (Bone Marrow Biopsy) 03/27/2024 2:13 PM REAL ESTATE LEGAL ASSISTANT 03/27/2024 2:13 PM REAL ESTATE LEGAL ASSISTANT Narrative [facility] - 04/11/2024 2:17 PM REAL ESTATE LEGAL ASSISTANT EPIC results best viewed via link to PDF [facility] Department of Pathol [address] [place] [address] ? Patient Information ? Name: ??KELLEE PALACIOS SR. ? Gender: ??M ? : ??1960 (Age: 63) ? Tissue: ??Bone Marrow w/ FISH ? Visit Information ? Hospital #: ? [id number] ? Facility: ? [facility] ? Service: ? [facility] ? Location: ? UNKNOWN ? Patient Type: ? [facility]-EPIC ? Specimen Information: ? Culture #: ??[id number] ? Date Collected: ??03/27/2024 ? Date Accessioned: [...] Resolution: ??400Subculture: ?? Karyotype: 42~44,XY,-3,dic(15;17)(q11.1;p11.1),abraham(6)t(3;6)(q25;p24),-9,add(21)(p11.1),+add (21)[ cp6].nuc bree(I3S604/J8H4942b2,EGR1x1)[37/200],(AAJB9U2s8,ZIAH4a8)[17/200],(ASS1x1,ABL1x1, BCRx2 )[33/200], (MECOM,T2J500,KMT2A,PML,CBFB,GRANT)x2[200] Non-Clonal Aberration: abraham(3)t(3;6)(p25;q13~15) Diagnosis: CHROMOSOME ANALYSIS: ? LIMITED COMPLEX KARYOTYPE FISH FINDINGS: ?DELETION OF EGR1 (5q) - 18.5% ?TRISOMY OF RUNX1 (21q) - 8.5% ?MONOSOMY OF ASS1/ABL1 (9q) - 16.5% ?NO EVIDENCE OF MECOM REARRANGEMENT ?NO EVIDENCE OF DELETION/MONOSOMY OF A0R213 (7q) ?NO EVIDENCE OF KNEO3N3::RUNX1, BCR::ABL1, KMT2A, PML::GRANT ? OR CBFB REARRANGEMENT INTERPRETATION: Only six metaphase cells were obtained and analyzed from an unstimulated culture. ??All six metaphase cells analyzed revealed the clonal aberrations described above in a composite karyotype (cp). ??Due to caaa-iw-dqrp heterogeneity, the karyotypic description is composite, listing [...] Hybridization (FISH) analysis are performed using the [employer] Cytovision Imaging System. Report Electronically Reviewed and Signed Out By Hima Bernal, PhD, FACMGDate Reported: ??4Associate Professor, Division of Genomic & Molecular Pathology FLUORESCENCE IN-SITU HYBRIDIZATION [FISH] Karyotype: nuc bree(R5N332/U6T4415c1,EGR1x1)[37/200],(YQUK8Q5q9,WPNW2b3)[17/200],(ASS1x1,ABL1x1, BCRx2 )[33/200], (D5A777,KMT2A,PML,CBFB,GRANT)x2[200] Diagnosis: FISH FINDINGS: ?DELETION OF EGR1 (5q) - 18.5% ?TRISOMY OF RUNX1 (21q) - 8.5% ?MONOSOMY OF ASS1/ABL1 (9q) - 16.5% ?NO EVIDENCE OF DELETION/MONOSOMY OF K5R700 (7q) ? NO EVIDENCE OF DTJM9P2::RUNX1, BCR::ABL1, KMT2A, PML::GRANT OR CBFB ? REARRANGEMENT Pending FISH: ?FISH for MECOM INTERPRETATION: FISH analysis was performed with a panel of [employer] and [employer] probes for AML and is interpreted as ABNORMAL for the EGR1, YLCE9U1::RUNX1, and BCR::ABL1 probe sets. 1) FISH evaluation for a 5q deletion was performed on nuclei with the EGR1,M7O078/X2O5184 Dual Color Probe ([employer].) for EGR1 at 5q31.1 and the control H8S285/X8G6507 at 5p15.31 and is interpreted as ABNORMAL. ??One EGR1 hybridization signal and two S6T397/S6Z1927 control hybridization signals were observed in 37/200 nuclei, which exceeds the normal range (up to 3.1%) established for this probe in the Clinical Genomics Laboratory at [facility]. 2) FISH evaluation for a AEKL0L7::RUNX1 rearrangement was performed on nuclei with the LSI TJDF5A6::RUNX1 Dual Color, Dual Fusion Translocation Probe (Hernandez [employer] for STCP2I3(ETO) at 8q22 and RUNX1(AML1) at 21q22 and is interpreted as ABNORMAL, although an TXZX7C2::RUNX1 rearrangement was not detected. ??An abnormal hybridization pattern consisting of two GKQS4H8 hybridization signals and three RUNX1 hybridization signals was observed in 17/200 nuclei, indicative of trisomy for the corresponding region on chromosome 21. ??This value exceeds the normal range (up to 1%) established for this probe in the Clinical Genomics Laboratory at [facility]. ?? 3) FISH evaluation for a BCR::ABL1 rearrangement was performed on nuclei with the LSI BCR::ABL1 Tricolor, Dual Fusion Translocation Probe ([employer] for ASS1/ABL1 at 9q34 and BCR [...] probe in the Clinical Genomics Laboratory at [facility]. 4) FISH evaluation for a 7q deletion was performed on nuclei with the LSI F2V705/D7Z1 Dual Color Probe ([employer] for D2E050 at 7q31 and the control D7Z1 at 7p11.1-q11.1 and is interpreted as NORMAL. ??Two G4T220 hybridization signals and two D7Z1 control hybridization signals were observed in 200/200 nuclei, which is within the normal range established for this probe set in the Clinical Genomics Laboratory at [facility]. ??Up to 1% of cells in normal samples can show an apparent 7q deletion using this probe. ??A normal E5S013 FISH finding can result from the absence [...] probe in the Clinical Genomics Laboratory at [facility]. ??Up to 1% of cells in [...] probe in the Clinical Genomics Laboratory at [facility]. Variant signal pattern was observed in [...] probe in the Clinical Genomics Laboratory at [facility]. ??Up to 2% of cells in [...] developed and its performance characteristics determined by [facility]. It has not been cleared or approved by the FDA. The laboratory is regulated under CLIA as qualified to perform high-complexity testing. This test is used for clinical purposes. It should not be regarded as investigational or for research. Chromosome analysis and Fluorescence In Situ Hybridization (FISH) analysis are performed using the [employer] Imaging System. Report Electronically Reviewed and Signed Out By Asim Bear, PhD, FACMGDate Reported: ??4Assistant Professor, Division of Genomic & Molecular Pathology REFLEX FLUORESCENCE IN-SITU HYBRIDIZATION [FISH] Karyotype: nuc bree(MECOMx2)[200] Diagnosis: ?? FISH FINDINGS: ?NO EVIDENCE OF MECOM (3q) REARRANGEMENT INTERPRETATION: FISH evaluation for an EVI1(MECOM) rearrangement was performed on nuclei with the BETHANY Dual Color, Break Apart Rearrangement Probe ([employer]) at 3q26 and is interpreted as NORMAL. ??No rearrangement was observed in 199/200 nuclei, which is within the normal range established for this probe in the Clinical Genomics Laboratory at [facility]. ??Up to 2% of cells in [...] developed and its performance characteristics determined by [facility]. It has not been cleared or approved by the FDA. The laboratory is regulated under CLIA as qualified to perform high-complexity testing. This test is used for clinical purposes. It should not be regarded as investigational or for research. Chromosome analysis and Fluorescence In Situ Hybridization (FISH) analysis are performed using the [employer] Cytovision Imaging System. Report Electronically Reviewed and Signed Out By Margaret Ratliff, PhD Date Reported: ??04/05/2024ssistant Professor, Division of Genomic & Molecular Pathology Evan Mai MD LAB GENETIC TESTING Final Resu lt [facility] [address] [place] [address] * Flow Leukemia/Lymphoma Bone marrow (03/27/2024 2:13 PM REAL ESTATE LEGAL ASSISTANT) Kaufman Stain Test Completed Leukemia/Lymp johana Result See separate Surgical Pathology report. [facility] Bone marrow 03/27/2024 2:13 PM REAL ESTATE LEGAL ASSISTANT 03/27/2024 6:37 PM REAL ESTATE LEGAL ASSISTANT Narrative [facility] - 03/28/2024 8:22 AM REAL ESTATE LEGAL ASSISTANT Tube information: Green top (Sodium Heparin) Evan Mai MD LAB PATHOLOGY ORDERABLES Final Result Performing Organization Address City/[facility]/ZIP Co de Phone Number [facility] Department [place] [address] documented in this encounter Visit Diagnoses Diagnosis 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 having achieved remission (HCC)- Primary 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 having achieved remission (HCC) 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 having achieved remission (HCC) documented in this encounter Orders Appointment Requests Count Last Ordered Date Fi rst Ordered Date ONCBCN BONE MARROW BIOPSY APPT 1 03/27/2024 documented in this encounter Care Teams Equipment Operator Intermodal Yard Relationship Specialty Start Date End Date Yaya Britt MD PCP - General 07/31/16 Kaleb Tomlin MD [address] [address] Referring Physician Hematology 02/29/24 Evan Mai MD [address] [facility] [address] DIV [place] [address] Consulting Physician Internal Medicine 03/01/24 documented as of this encounter
--- OUTSIDE RECORDS SUMMARY | 2024-04-20 02:20 | XMS_ITS | Encounter Summary ---
Author Organization [facility] Healthcare Address [address] [place] [address] Care Team Providers Care Mill Control Operator Name Role Phone Yaya Britt MD Primary Care Provider Encounter Details Date Type Department Care Team (Late st Contact Info) Description 12/29/2023 Orders Only [facility] Medical Group Orthopedics and Sports Medicine [address] [place] [id number] Lul Yusuf MD [address] [place] [address] [address] [place] [address] Social History Tobacco Use Types Packs/Day Years [...] on file Legal Sex Male 2:01 AM BOOT AND SADDLE REPAIR PERSON Gender Identity Not on file Sexual Orientation Not on file documented as of this encounter Progress Notes * Ebenezer Ruggiero ATC - 12/29/2023 11:59 PM CDT Called [facility] after contacting Dr. Yaya Britt's office to let him know that we received his lab results and they are extremely low. I let him know that we faxed the lab results to Dr. Sehriff per their request and they would be contacting him with instructions/plan of care. He did report that he is feeling fatigued and cold and feels feverish. He was instructed to call our office back with any needs that he had. documented in this encounter Plan of Treatment Not on file documented as of this encounter Procedures Procedure Name Priority Date/Time Associated Diagnosis Comments CBC/DIFF AMBIGUOUS DEFAULT Routine 12/29/2023 1:25 PM CDT documented in this encounter Results * (ABNORMAL) CBC/Diff Ambiguous Default (12/29/2023 1:25 PM CDT) WBC 1.6(LL) 3.4 - 10.8 x10E3/uL [facility] - 01 RBC 2.26(LL) 4.14 - 5.80 x10E6/uL [facility] - 01 Comment: Few tear drops. Polychromasia present Ovalocytes present. Few schistocytes. Hgb 6.4(LL) 13.0 - 17.7 g/dL [facility] - 01 Hct 20.1(L) 37.5 - 51.0 % [facility] - 01 MCV 89 79 - 97 fL [facility] - 01 MCH 28.3 26.6 - 33.0 pg [facility] - 01 MCHC 31.8 31.5 - 35.7 g/dL [facility] - 01 Rdw 22.4(H) 11.6 - 15.4 % [facility] - 01 Platelets 54(LL) 150 - 450 x10E3/uL [facility] - 01 Comment:Platelet count verif ied by examination of peripheral blood smear. Neutrophils pct 39 Not Estab. % [facility] - 01 Lymphs pct 52 Not Estab. % [facility] - 01 Monocytes pct 6 Not Estab. % [facility] - 01 Eosinophils pct 1 Not Estab. % [facility] - 01 Basophil pct 1 Not Estab. % [facility] - 01 Neutrophil abs 0.6(L) 1.4 - 7.0 x10E3/uL [facility] - 01 Lymphs (Absolute) 0.9 0.7 - 3.1 x10E3/uL [facility] - 01 Monocyte abs 0.1 0.1 - 0.9 x10E3/uL [facility] - 01 Eosinophils, abs 0.0 0.0 - 0.4 x10E3/uL [facility] - 01 Basophils, abs 0.0 0.0 - 0.2 x10E3/uL [facility] - 01 Immature Granulocytes 1 Not Estab. % [facility] - 01 Immature Grans (Abs) 0.0 0.0 - 0.1 x10E3/uL [facility] - 01 Hematology Comments: Note: [facility] - 01 Comment: Verified by microscopic examination. A hand-written panel/profile was received from your office. In accordance with the [facility] Ambiguous Test Code Policy dated October 2002, we have assigned CBC with Differential/Platelet, Test Code #054775 to this request. If this is not the testing you wished to receive on this specimen, please contact the [facility] Client Inquiry/ Technical Services Department to clarify the test order. We appreciate your business. 12/29/2023 1:25 PM CDT 12/29/2023 Narrative [facility] - 12/30/2023 10:12 AM CDT Performed at: ??01 - [facility] [address] ??[id number] Mailroom Associate: Tima Kim PhD, Phone: ??[phone] Specimen Comment: A courtesy copy of this report has been sent to [phone], Family Specimen Comment: Care Specialists, Lul Yusuf MD LAB BLOOD ORDERABLES Final R esult [facility] - 01 documented in this encounter Visit Diagnoses Not on filedocumented in this encounter Care Teams Mill Control Operator Relationship Specialty Start Date End Date Yaya Britt MD PCP - General 07/31/16 documented as of this encounter
--- OUTSIDE RECORDS SUMMARY | 2024-04-20 02:20 | XMS_ITS | Encounter Summary ---
Author Organization [facility] Healthcare Address [address] [place] [address] Care Team Providers Care Chemical Research Worker Name Role Phone Yaya Britt MD Primary Care Provider [phone] Encounter Details Date Type Department Care Team (Late st Contact Info) Description 09/03/2023 Telephone [facility] Cardiology [address] [place] [address] Haydee Obregon MD [address] [place] [address] Social History Tobacco Use Types Packs/Day Years Used Date Smoking Tobacco: Former Cigarettes Smokeless Tobacco: Never Alcohol Use Standard Drinks/Week Comments No 0 (1 standard drink = 0.6 oz pur e alcohol) Sex and Gender Information Value Date Recorded Sex Assigned at Not on file 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 Gender Identity Not on file Sexual Orientation Not on file documented as of this encounter Ordered Prescriptions Prescription Sig Dispense Quantity Refills Last Filled Start Date End Date amiodarone (PACERONE) 200 mg tablet Take 1 tablet (200 mg total) by mouth daily 30 tablet 09/03/2023 10/06/2023 spironolactone (ALDACTONE) 25 mg tablet Take 1 tablet (25 mg total) by mouth daily 30 tablet 09/03/2023 09/27/2023 metoprolol XL (TOPROL-XL) 50 mg extended release tablet Take 1 tablet (50 mg total) by mouth daily 30 tablet 09/03/2023 09/27/2023 Jardiance 10 mg tablet Take 1 tablet (10 mg total) by mouth daily 30 tablet 09/03/2023 09/27/2023 Entresto 24-26 mg tablet Take 1 tablet by mouth 2 (two) times a day 30 tablet 09/03/2023 10/06/2023 documented in this encounter Miscellaneous Notes * Telephone Encounter - Angelina Ratliff - 09/22/2023 3:11 PM CDT Pt requesting meds be sent to [facility] in [place]. Requesting all meds be sent for 30 day supply but a 60 day supply for Entresto. Contact: * Telephone Encounter - Ciara Collier MA - 09/03/2023 3:18 PM CDT Refills approved and sent to pharmacy. * Telephone Encounter - Angelina Ratliff - 09/03/2023 2:58 PM CDT Patient requesting refill for all cardiac meds with 30 day supply. Asked him for the specific namesof the meds and he stated he provided us with a med list at the last office visit. Please send to [facility]. Thank you. Contact: documented in this encounter Plan of Treatment Not on file documented as of this encounter Visit Diagnoses Not on filedocumented in this encounter Discontinued Medications Medication Sig Discontinue Reason Start Date End Da te Entresto 24-26 mg tablet Take 1 tablet by mouth 2 (two) times a day Reorder 08/01/2023 09/03/2023 metoprolol XL (TOPROL-XL) 50 mg extended release tablet Take 1 tablet (50 mg total) by mouth daily Reorder 08/02/2023 09/03/2023 spironolactone (ALDACTONE) 25 mg tablet Take 1 tablet (25 mg total) by mouth daily Reorder 08/02/2023 09/03/2023 amiodarone (PACERONE) 200 mg tablet Take 1 tablet (200 mg total) by mouth daily Reorder 07/30/2023 09/03/2023 Jardiance 10 mg tablet Take 1 tablet (10 mg total) by mouth daily Reorder 07/28/2023 09/03/2023 documented as of this encounter Care Teams Chemical Research Worker Relationship Specialty Start Date End Date Yaya Britt MD PCP - General 07/31/16 documented as of this encounter
--- OUTSIDE RECORDS SUMMARY | 2024-04-20 02:20 | XMS_ITS | Encounter Summary ---
Author Organization [facility] Healthcare Address [address] [place] [address] Care Team Providers Care Chain Dyer Name Role Phone Yaya Britt MD Primary Care Provider [phone] Reason for Referral * Diagnostic Imaging (Routine) - Closed Specialty Diagnoses / Procedures Referred By Contac t Referred To Contact Diagnoses Left knee pain, unspecified chronicity Procedures XR Knee Left 4 or More Views Lul Yusuf MD [address] [place] [address] [place] [address] Phone: tel: fax: [facility] Medical Group Referral ID Status Reason Start Date Expiration Date Visits Re quested Visits Authorized [id number] Closed 12/24/2023 01/22/2025 1 1 * Diagnostic Imaging (Routine) - Closed Specialty Diagnoses / Procedures Referred By Contac t Referred To Contact Diagnoses Left knee pain, unspecified chronicity Procedures XR Pelvis 1 or 2 Views Lul Yusuf MD [address] [facility] [address] [address] Phone: tel: fax: [facility] Medical [facility] Referral ID Status Reason Start Date Expiration Date Visits Re quested Visits Authorized [id number] Closed 12/24/2023 01/22/2025 1 1 Reason for Visit * Reason Comments Pain Patient been dealing with left knee pain for 3 years. 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); Atrial fibrillation, unspecified type (HCC) Social History Tobacco Use Types Packs/Day [...] on file 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 Gender Identity Not on file Sexual Orientation Not on file documented as of this encounter Last Filed Vital Signs Vital Sign Reading Time Taken Comments Blood Pressure - - Pulse 75 12/24/2023 9:27 AM CDT Temperature - - Respiratory Rate 18 12/24/2023 9:27 AM CDT Oxygen Saturation - - Inhaled Oxygen Concentration - - Weight 92.1 kg (203 lb) 12/24/2023 9:27 AM CDT Height 172.7 cm (5' 8 ) 12/24/2023 9:27 AM CDT Body Mass Index 30.87 12/24/2023 9:27 AM CDT documented in this encounter Patient Instructions * Patient Instructions* Paola Grady MA - 12/24/2023 9:00 AM CDT Thank you for coming in todayJulianna , and I are thankful you have trusted us with your care, and hope that you receive EXCELLENT care today! Please do not hesitate to call if you have any questionsor concerns at [phone] or send us a message via [employer] You may receive a phone call or text asking about your care today and we would love to hear your input. We hope your visit was as excellent as possible and we look forward to continuing to provide you with excellent care. documented in this encounter Progress Notes * Lul Yusuf MD - 12/24/2023 9:00 AM CDT Images from the original note were not included. NEW PATIENT VISIT Subjective CHIEF COMPLAINT He had concerns including Pain of the Left Knee (Patient been dealing with left knee pain for 3 years. ). HISTORY OF PRESENT ILLNESS Left knee pain for the past 2 years gotten worse the past 2 months the problem started [id number]. His pain is sharp and achy in severe. Nothing makes it better walking and moving makes it worse his pain is continuous he has miss work because his problems he has tried anti-inflammatories pain medications braces without relief he has been referred here for surgical consultation he has seen pain management in the past. Bleaching Supervisor completed by using [employer] Direct speaking software, therefore, transcriptionvariances may occur. Pain Assessment Pain Assessment: 0-10 Pain Score: 9 Pain Location: Knee Pain Orientation: Left Pain Descriptors: Aching Pain Frequency: Constant/continuous Pain Onset: Ongoing PAST MEDCIAL HISTORY He has a past medical history of Atrial fibrillation (CMS/HCC) (HCC), Cardiomyopathy (HCC), OTHER MEDICAL, and OTHER MEDICAL. PAST SURGICAL HISTORY He has a past surgical history that includes Appendectomy. MEDICATIONS He has a current medication list which includes the following prescription(s): entresto, folic acid, hydrocodone-acetaminophen, jardiance, levothyroxine, metoprolol xl, prednisone, spironolactone, amoxicillin-clavulanate, and folic acid. ALLERGIES He has no known allergies. SOCIAL HISTORY He reports that he has quit smoking. His smoking use included cigarettes. He has never used smokeless tobacco. He reports that he does not currently use drugs. No alcohol history on file. FAMILY HISTORY His family history includes Cancer in his father; Heart attack in his mother and another family member; Heart disease in his maternal grandfather; Other in some other family members. REVIEW OF SYSTEMS Review of Systems Constitutional: Negative for activity change, appetite change, chills, fever and unexpected weight change. HENT: Negative for congestion, dental problem, ear pain, hearing loss, nosebleeds, tinnitus and voice change. Eyes: Negative for pain and visual disturbance. Respiratory: Negative for apnea, cough, chest tightness and shortness of breath. Cardiovascular: Negative for chest pain, palpitations and leg swelling. Gastrointestinal: Negative for blood in stool, constipation, diarrhea, nausea and vomiting. Endocrine: Negative for cold intolerance and heat intolerance. Genitourinary: Negative for difficulty urinating, hematuria and urgency. Skin: Negative for color change, rash and wound. Allergic/Immunologic: Negative for environmental allergies. Neurological: Negative for dizziness, syncope, numbness and headaches. Hematological: Negative for adenopathy. Does not bruise/bleed easily. Psychiatric/Behavioral: Negative for confusion. The patient is not nervous/anxious and is not hyperactive. Objective PHYSICAL EXAM Pulse 75 Resp 18 Ht 172.7 cm (5' 8 ) Wt 92.1 kg (203 lb) BMI 30.87 kg/m?? Right knee Inspection The patient has normal inspection of the right knee. Swelling: mild Surgical scar/wound: absent. Skin temperature: normal Alignment: varus Gait: antalgic Palpation Tenderness: present. The tenderness is located in the medial joint line. Patellar tracking: normal Crepitus: positive Patella grind: positive Range of motion The patient has normal range of motion of the right knee. The patient has pain with range of motion of the right knee. Stability The patient has normal AP and ML stability of the right knee. Strength The patient has 5/5 strength thoughout right knee. Neurovascular The patient has normal vascular on the right side of their body. The patient has normal sensation on the right side of their body. Left knee Inspection The patient has normal inspection of the left knee. Swelling: mild Effusion: 1+ and 2+ Surgical scar/wound: absent. Skin temperature: normal Alignment: varus Gait: antalgic Palpation Tenderness: present. The tenderness is located in the medial joint line and lateral joint line. Patellar tracking: normal Crepitus: positive Patella grind: positive Range of motion The patient has reduced range of motion of the left knee. The patient has pain with range of motion of the left knee. Stability The patient has abnormal stabiltiy of the left knee. Strength The patient has 5/5 strength throughout with exceptions as noted below. Knee extension: 4/5 and pain limits strength Knee flexion: 4/5 and pain limits strength Neurovascular The patient has normal vascular on the left side of their body. The patient has normal sensation on the left side of their body. REVIEW OF X-RAYS/STUDIES/LABS XR Knee Left 4 or More Views Four views left knee show severe end-stage osteoarthritis with subluxation of the femur on the tibia no joint space subchondral sclerosis severe varus deformity XR Pelvis 1 or 2 Views AP pelvis shows no fracture subluxation dislocation hxju-zq-zpiobccg degenerative changes bilaterally cam deformities bilateral femoral necks Assessment/Plan Taiwo was seen today for pain. 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 Patient demonstrates atrophy and weakness in lower extremities and would benefit from home Estim device. Risks and benefits of total knee arthroplasty were discussed with the patient. These include but are not limited to bleeding infection damage to surrounding structures including, fracture, Damage to nerves, arteries, veins, DVT, PE, stroke, heart attack, and . Patient understands these risks and agreed to proceed with the surgery as described above. All questions and concerns were addressed with the patient prior to surgical consent being established in the office today. The patient will follow up for surgery. MIRIAM Reyes MD documented in this encounter Plan of Treatment Not on file documented as of this encounter Results * XR Pelvis 1 or 2 Views (12/24/2023 9:22 AM CDT) Anatomical Region Laterality Modality Body, Pelvis N/A Digital Radiogra phy Narrative 12/24/2023 9:35 AM CDT AP pelvis shows no fracture subluxation dislocation osqa-qx-dusxcuzn degenerative changes bilaterally cam deformities bilateral femoral necks Lul Yusuf MD IMG XR PROCEDURES Final Resu lt * XR Knee Left 4 or More Views (12/24/2023 9:22 AM CDT) Anatomical Region Laterality Modality Lower Extremities, Knee Left Digital Radiography Narrative 12/24/2023 9:35 AM CDT Four views left knee show severe end-stage osteoarthritis with subluxation of the femur on the tibia no joint space subchondral sclerosis severe varus deformity Lul Yusuf MD IMG XR PROCEDURES Final Resu lt documented in this encounter Visit Diagnoses Diagnosis Osteoarthritis of left knee, unspecified osteoarthritis type- Primary Left knee pain, unspecified chronicity High risk medication use 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
--- OUTSIDE RECORDS SUMMARY | 2024-04-20 02:20 | XMS_ITS | Encounter Summary ---
Author Organization [facility] Healthcare Address [address] [place] [address] Care Team Providers Care Beef Cattle Specialist Name Role Phone Yaya Britt MD Primary Care Provider [phone] Kaleb Tomlin MD Unavailable [phone] Evan Mai MD Unavailable [phone] Reason for Visit * Procedure (Routine) - Closed Specialty Diagnoses / Procedures Referred By Taco crawford Referred To Contact Diagnoses 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 having achieved remission (HCC) Procedures Biopsy bone marrow Evan Mai MD [address] [place] [address] Phone: tel: fax: [facility] (All Locations) Referral ID Status Reason Start Date Expiration Date Visits Re quested Visits Authorized [id number] Closed 03/21/2024 04/20/2025 1 1 Encounter Details Date Type Department Care Team (Late st Contact Info) Description 03/27/2024 1:30 PM TIRE CURER Infusion [facility] - Infusion [address] [facility] [place] [address] [place] [address] 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 having achieved remission [...] on file Legal Sex Male 2:01 AM TIRE CURER Gender Identity Not on file Sexual Orientation Not on file documented as of this encounter Last Filed Vital Signs Vital Sign Reading Time Taken Comments Blood Pressure 108/65 03/27/2024 2:29 PM TIRE CURER Pulse 72 03/27/2024 2:29 PM TIRE CURER Temperature 36.9 ??C (98.4 ??F) 03/27/2024 1:35 PM CS T Respiratory Rate 18 03/27/2024 2:29 PM TIRE CURER Oxygen Saturation 96% 03/27/2024 2:29 PM TIRE CURER Inhaled Oxygen Concentration - - Weight 92.8 kg (204 lb 9.4 oz) 03/27/2024 1:35 P M TIRE CURER Height - - Body Mass Index 31.11 12/24/2023 9:27 AM CDT documented in this encounter Procedure Notes * Mohinder Walton RN - 03/27/2024 1:30 PM CST Bone Marrow Biopsy Procedure Note Pre-Procedure Assessment Informed Consent: The purpose, benefits, material risks, and alternatives of the recommended procedure were discussed. The patient or their signs and displays sales representative understood the discussions and consented to the procedure.: Yes Pre-Procedure Education: Process reviewed with patient; verbalizes understanding: Yes Consent form signed?: Yes Pt has a carrier driver?: NA Does patient have a history of sleep apnea?: No Pt has minimal abdominal distension?: Yes Is patient currently taking anticoagulant?: No Is patient taking benzodiazepines?: No Is patient taking narcotics?: No Is patient taking antiemetics?: No Allergies reviewed?: Yes Last Biopsy on: Right Patient???s posterior-superior iliac spine region was assessed and skin is free of rashes, wounds, masses, and accessible for procedure: Yes Pre-procedure medications given?: No Proceduralist: Mohinder Walton RN Time Out Immediately prior to the procedure a time out was called. A verbal verification by the procedure participants confirmed agreement on: correct patient, planned site and positioning of patient, and theprocedure to be done.: Yes Time: 1413 Procedure Times Start Time: 1414 Stop Time: 1422 Patient Vital Signs for the past 24 hrs: BP Temp Temp src Pulse Resp SpO2 Weight 03/27/24 1429 108/65 -- -- 72 18 96 % -- 03/27/24 1335 120/73 36.9 ??C (98.4 ??F) Oral 69 18 99 % 92.8 kg (204 lb 9.4 oz) BM Biopsy Procedure: Laterality: Left Pt placed in position: Prone Skin prepped with: CHG Draped per protocol?: Yes Posterior-superior Iliac spine region was locally anesthetized with lidocaine?: 1% mLs given: 15 Single Bevel Jamshidi used to obtain the following sample(s): Aspirate, Clot, Core Specimens sent for: Routine Histology, Flow Cytometry, Molecular, Cytogenetics, Other (see comments) (Myelo, Chromo) Pressure was applied to site and dressing applied?: Yes Pt maintained oxygen saturation GREATER than or EQUAL to 92% at all times throughout procedure?: Yes Tolerated procedure without complications?: Yes Specimens Sent Specimens sent for: Routine Histology, Flow Cytometry, Molecular, Cytogenetics, Other (see comments) (Myelo, Chromo) Discharge Assessment: Post-procedure instructions/follow up appointment reviewed/provided in writing. Patient verbalizes understanding.: Yes Fall prevention teaching and written instructions given to patient?: Yes No bleeding/bruising noted at drsg site; drsg dry intact?: Yes Discharged via: Wheelchair, Designated carrier driver Discharged time: 1443 HGB 7.9, patient asymptomatic. Per Dinh Adams RN, patient to follow up with medical team at home in [place] to schedule transfusion. Patient and family agreeable with plan. Administrations This Visit lidocaine (PF) (XYLOCAINE) 10 mg/mL (1 %) preservative free injection 70-300 mg Admin Date 03/27/2024 14:14 Action Given Dose 150 mg Route subcutaneous Documented By Mohinder Walton RN Lab Results Component Value Date CREATININE 0.62 (L) 03/27/2024 CREATININE 0.98 07/22/2017 LABPLAT 21 (L) 03/27/2024 LABPLAT 54 (LL) 12/29/2023 Mohinder Walton RN 03/27/24 CURER documented in this encounter Plan of Treatment Not on file documented as of this encounter Results * Surgical pathology (03/27/2024 2:13 PM TIRE CURER) Tissue (Bone Marrow Biopsy) 03/27/2024 2:13 PM TIRE CURER 03/27/2024 5:22 PM TIRE CURER Narrative PATHOLOGY [facility] - 03/29/2024 2:40 PM TIRE CURER EPIC results best viewed via link to PDF [facility] [place] [address] Note to Patients: This report may contain [...] REPORT FINAL WITH ADDENDUM Patient Name: ?? TAIWO TAPIA Susana A[facility]OTT Gender: ??M : ??1960 (Age: 63) Address: ??[address] [place] [address] ??[id number] Hospital #: ??[id number] Taken:03/27/2024 Received:03/27/2024 Reported: 03/29/2024 Patient Type: [facility] MED ONC ?? Service: Laboratory Location: Physician(s): [...] Jar 0. ?? sxst/03/27/2024 17:59 PA(s): Bronwyn Seferino ? CBC: ?Date: 03/27/2025 ?WBCs: 1.7x10^3/mcl ?Hemoglobin: [...] 3 ?The differential count may not be signs and displays sales representative of marrow elements ? Bone [...] cytometry specimen was examined for internal quality control manager purposes. Flow cytometry was performed using antibodies to the following cellular antigens: CD45, CD34, CD19, CD20, [place], Lambda, CD10, CD5, CD200, CD38, CD2, CD3, [...] Surgical Pathology and Flow Cytometry Departments at [facility] as part of an ongoing water quality specialist program and in compliance with federally [...] Surgical Pathology and Flow Cytometry Departments of [facility]. ??It has not been cleared or approved by the U. S. Food and Drug Administration. IMAGES AND SCANNED DOCUMENTS, IF INCLUDED, ONLY VIEWABLE IN PDF VERSION OF REPORT Evan Mai MD LAB PATHOLOGY ORDERABLES Final Result PATHOLOGY 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 For local anesthesia or patient discomfort, may increase to a maximum total lidocaine dose of 4.5 mg/kg or 300 mg (whichever is less).Indications: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 having achieved remission (HCC) Given 03/27/2024 2:14 PM TIRE CURER 150 mg Left Upper Hip documented in this encounter Orders Medications Ordered That Steve ht Not Have Been Administered Count Last Ordered Date First Ordered Date flumazeniL (ROMAZICON) injection 0.5 mg 1 1 05/27/2023 lidocaine (PF) (XYLOCAINE) 1 0 mg/mL (1 %) preservative free injection 70-300 mg 1 03/27/2024 LORazepam (ATIVAN) 0.5 mg in sodium chloride 0.9% (further dilution required) injection 1 03/27/2024 morphine injection 0.5 mg 1 03/27/2024 naloxone (NARCAN) 0.4 mg/mL injection 0.4 mg 1 03/27/2024 Nursing Count Last Ordered Date First Orde red Date ONCBCN BM BX LAB REQUEST 1 03/27/2024 ONCBCN NURSING COMMUNICATION 11 1 4 ONCBCN NURSING COMMUNICATION 12 1 4 ONCBCN NURSING COMMUNICATION 13 1 4 ONCBCN NURSING COMMUNICATION 8 1 03/27/2024 Appointment Requests Count Last Ordered Date Fi rst Ordered Date ONCBCN BONE MARROW BIOPSY APPT 1 03/27/2024 documented in this encounter Care Teams Beef Cattle Specialist Relationship Specialty Start Date End Date Yaya Britt MD PCP - General 07/31/16 Kaleb Tomlin MD [address] [place] [phone] Referring Physician Hematology 02/29/24 Evan Mai MD [address] [facility] [address] DIV IM [place] [address] Consulting Physician Internal Medicine 03/01/24 documented as of this encounter
--- OUTSIDE RECORDS SUMMARY | 2024-04-20 02:20 | XMS_ITS | Encounter Summary ---
Author Organization [facility] Address [address] [place] [address] Phone Care Team Providers Care Bank Credit Card Collection Clerk Name Role Phone Yaya Britt MD Primary Care Provider [phone] Kaleb Tomlin MD Unavailable [phone] Evan Mai MD Unavailable [phone] Reason for Visit * Consultation (Routine) - Closed Specialty Diagnoses / Procedures Referred By Contact Referred To Contact Medical Oncology / Blood and Marrow Transplant Diagnoses MDS (myelodysplastic syndrome) (HCC) TP53 gene mutation positive Kaleb Tomlin MD [address] [facility] [address] [address] Phone: tel: fax: [facility] (All Locations) Referral ID Status Reason Start Date Expiration Date V isits Requested Visits Authorized [id number] Closed Specialty Services Required 02/29/2024 03/30/2025 1 1 Encounter Details Date Type Department Care Team (Late st Contact Info) Description 03/21/2024 1:40 PM PROPERTY MANAGER Office Visit [facility] Bone Marrow Transplant [address] [facility] Floor 6 [place] [address] Evan Mai MD [address] [place] [address] MDS (myelodysplastic syndrome) (HCC) (Primary Dx); 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 having achieved remission (HCC); TP53 gene mutation positive; 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); Rheumatoid arthritis involving multiple sites, unspecified whether rheumatoid factor present (HCC); Atrial fibrillation, unspecified type (HCC); Tobacco consumption Social History Tobacco Use Types Packs/Day Years [...] on file Legal Sex Male 2:01 AM PROPERTY MANAGER Gender Identity Not on file Sexual Orientation Not on file documented as of this encounter Last Filed Vital Signs Vital Sign Reading Time Taken Comments Blood Pressure 100/62 03/21/2024 1:10 PM PROPERTY MANAGER Pulse 78 03/21/2024 1:10 PM PROPERTY MANAGER Temperature 36.6 ??C (97.8 ??F) 03/21/2024 1:10 PM CS T Respiratory Rate 18 03/21/2024 1:10 PM PROPERTY MANAGER Oxygen Saturation 98% 03/21/2024 1:10 PM PROPERTY MANAGER Inhaled Oxygen Concentration - - Weight 91 kg (200 lb 9.6 oz) 03/21/2024 1:10 PM PROPERTY MANAGER Height - - Body Mass Index 30.5 12/24/2023 9:27 AM CDT documented in this encounter Progress Notes * Evan Mai MD - 03/21/2024 1:40 PM CST BMT Consult Reason for Consult: Myeloid malignancy Requesting Provider: Kaleb Tomlin BMT Day: N/A Chief Complaint: Patient is a 63 y.o. male with chief complaint of cytopenia found in pre- surgical work-up. Subjective HPI: Mr. Palacios is a 63 yo male with PMH of Aftb, HFrEF, rheumatoid arthritis, chronic back pain, tobacco use who in late January was set up for a knee replacement and pre-work up testing showed severe anemia and thrombocytopenia. 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 The quality of the sample was not good and no cyto or molecular datawas sent. He was started on Decitabine by his local doctor and is currently C1D2. He is feeling fatigued, andis on a wheelchair, but otherwise no mouth sores, throat pain, o fever. Cancer Staging No matching staging information was found for the patient. Oncology History No history exists. Active Therapy Plans for Taiwo Palacios Sr. Blood Products: Adult BMT/ONC - Blood and/or Platelet Administration for Outpatient Current treatment: Treatment 1 (Planned for 03/21/2024) Past Medical History: Diagnosis Date Atrial fibrillation (CMS/HCC) (HCC) Cardiomyopathy (HCC) HX OTHER MEDICAL bilateral leg grafting HX OTHER MEDICAL rheumatoid arthritis; Comments: JENN 01/08/2014 - Past Surgical History: Procedure Laterality Date APPENDECTOMY Appendectomy Allergies Allergen Reactions Heparin Unknown Outpatient Encounter Medications as of 03/21/2024: acyclovir (ZOVIRAX) 400 mg tablet, Take 1 tablet (400 mg total) by mouth every 4 (four) hours whileawake, Disp: , Rfl: Airsupra 90-80 mcg/actuation HFA aerosol inhaler, , Disp: , Rfl: ALPRAZolam (XANAX) 0.25 mg tablet, Take 1 tablet (0.25 mg total) by mouth nightly as needed, Disp: , Rfl: ASCORBIC ACID, VITAMIN C, ORAL, Take by mouth, Disp: , Rfl: Entresto 24-26 mg tablet, TAKE 1 TABLET BY MOUTH TWICE DAILY, Disp: 60 tablet, Rfl: 5 ferrous sulfate 325 mg (65 mg of elemental iron) tablet, Take 1 tablet (325 mg total) by mouth 2 (two) times a day, Disp: , Rfl: FLUoxetine (PROzac) 20 mg capsule, Take 1 capsule (20 mg total) by mouth daily, Disp: , Rfl: HYDROcodone-acetaminophen (NORCO) 7.5-325 mg per tablet, Take 1 tablet by mouth every 6 (six) hoursas needed for pain., Disp: 120 tablet, Rfl: 0 Jardiance 10 mg tablet, TAKE 1 TABLET(10 MG) BY MOUTH DAILY, Disp: 90 tablet, Rfl: 2 leflunomide (ARAVA) 10 mg tablet, Take 1 tablet (10 mg total) by mouth daily, Disp: , Rfl: levothyroxine (SYNTHROID) 88 mcg tablet, Take 1 tablet (88 mcg total) by mouth firer kiln beforebreakfast, Disp: , Rfl: metoprolol XL (TOPROL-XL) 50 mg extended release tablet, TAKE 1 TABLET(50 MG) BY MOUTH DAILY, Disp:90 tablet, Rfl: 2 multivitamin tablet, Take 1 tablet by mouth daily, Disp: , Rfl: ondansetron ODT (ZOFRAN-ODT) 8 mg disintegrating tablet, Take 1 tablet (8 mg total) by mouth every 8 (eight) hours as needed, Disp: , Rfl: spironolactone (ALDACTONE) 25 mg tablet, TAKE 1 TABLET(25 MG) BY MOUTH DAILY, Disp: 90 tablet, Rfl:2 traZODone (DESYREL) 50 mg tablet, Take 1 tablet (50 mg total) by mouth daily, Disp: , Rfl: amoxicillin-clavulanate (AUGMENTIN) 875-125 mg per tablet, Take 1 tablet by mouth every 12 (twelve)hours (Patient not taking: Reported on 12/24/2023), Disp: , Rfl: folic acid (FOLVITE) 1 mg tablet, take 1 Tablet by oral route every day (Patient not taking: Reported on 08/06/2023), Disp: 30, Rfl: 0 folic acid (FOLVITE) 800 mcg tablet, take 1 tablet (0.8MG) by oral route every day, Disp: , Rfl: 0 predniSONE (DELTASONE) 5 mg tablet, take 3 (15MG) by oral route every day for 7 days then take 2 tabs a day for 7 days, then 1 tab a day for 7 days (Patient not taking: Reported on 03/21/2024), Disp:42, Rfl: 0 Family History Problem Relation Age of Onset Heart attack Mother Cancer Father Cancer, unknown; Heart disease Maternal Grandfather Heart disease; Other Other Family history of Cancer -unknown; Heart attack Other Family history of Myocardial infarction; Other Other Family history of rheumatoid arthritis - father; Social History Tobacco Use Smoking status: Former Types: Cigarettes Smokeless tobacco: Never Substance and Sexual Activity Drug use: Not Currently Sexual activity: None Alcohol Use: Not At Risk (12/24/2023) AUDIT-C Frequency of Alcohol Consumption: Never Average Number of Drinks: Patient does not drink Frequency of Binge Drinking: Never Review of Systems Constitutional: positive for fatigue and malaise Eyes: negative Ears, nose, mouth, throat, and face: negative for earaches and epistaxis Respiratory: positive for dyspnea on exertion, sputum, and wheezing Cardiovascular: positive for dyspnea Gastrointestinal: negative for abdominal pain, diarrhea, and dysphagia Genitourinary: negative for hematuria Musculoskeletal: negative for arthralgias, back pain, bone pain, joint swelling, muscle weakness, and myalgias ECO Objective Vitals: Most Recent : BP: 100/62 Temp: 36.6 ??C (97.8 ??F) Temp src: Transdermal Pulse: 78 Resp: 18 SpO2: 98 % Weight: 91 kg (200 lb 9.6 oz) Physical exam: Head: Normocephalic, without obvious abnormality Eyes: conjunctivae/corneas clear. PERRL Nose: Nares normal. Septum midline. Mucosa normal. No drainage or sinus tenderness. Throat/Mouth: no mucositis or thrush Lungs: crackles bibasilar Heart: regular rate and rhythm, S1, S2 normal, no murmur, click, rub or gallop Abdomen: soft, non-tender; bowel sounds normal; no masses, no organomegaly Extremities: edema 3+ bilaterally Lab/Radiology/Diagnostic Review: Laboratory review: reviewed the laboratory result(s) anemia requiring transfusions and thrombocytopenia and neutropenia Pathology review: I have independently interpreted the bone marrow exam test(s). My findings are high grade myeloid malignancy, unclear MDS or AML, positive for TP53 IHC. Imaging review: I have reviewed the result(s) echocardiogram with improved EF compared to previous echo. CBC: Lab Results Component Value Date/Time WBC 0.7 (L) 03/21/2024 01:05 PM WBC 1.6 (LL) 12/29/2023 01:25 PM HGB 6.5 (L) 03/21/2024 01:05 PM HGB 6.4 (LL) 12/29/2023 01:25 PM HCT 19.8 (L) 03/21/2024 01:05 PM HCT 20.1 (L) 12/29/2023 01:25 PM MCV 85.7 03/21/2024 01:05 PM MCV 89 12/29/2023 01:25 PM LABPLAT 45 (L) 03/21/2024 01:05 PM LABPLAT 54 (LL) 12/29/2023 01:25 PM MCH 28.1 03/21/2024 01:05 PM MCH 28.3 12/29/2023 01:25 PM MCHC 32.7 03/21/2024 01:05 PM MCHC 31.8 12/29/2023 01:25 PM RDW 22.4 (H) 12/29/2023 01:25 PM RDWCV 20.4 (H) 03/21/2024 01:05 PM MPV 8.3 03/21/2024 01:05 PM NRBC 0.0 02/17/2016 05:50 AM NRBC 0.00 02/17/2016 05:50 AM NEUTROABS 0.3 (L) 03/21/2024 01:05 PM NEUTROABS 0.6 (L) 12/29/2023 01:25 PM LYMPHOPCT 52.1 03/21/2024 01:05 PM LABEOS 1 12/29/2023 01:25 PM CMP: Lab Results Component Value Date/Time SODIUM 133 (L) 03/21/2024 12:59 PM SODIUM 142 07/22/2017 09:55 AM POTASSIUM 4.7 03/21/2024 12:59 PM CO2 27 03/21/2024 12:59 PM CO2 21 07/22/2017 09:55 AM BUNSER 26 (H) 03/21/2024 12:59 PM BUNSER 16 07/22/2017 09:55 AM GLUCOSE 119 03/21/2024 12:59 PM GLUCOSE 102 (H) 07/22/2017 09:55 AM CREATININE 0.77 (L) 03/21/2024 12:59 PM CREATININE 0.98 07/22/2017 09:55 AM CALCIUM 9.2 03/21/2024 12:59 PM CALCIUM 9.2 07/22/2017 09:55 AM CHLORIDE 103 03/21/2024 12:59 PM CHLORIDE 104 07/22/2017 09:55 AM ALBUMIN 3.2 (L) 03/21/2024 12:59 PM ALBUMIN 4.2 07/22/2017 09:55 AM AST 14 03/21/2024 12:59 PM AST 22 07/22/2017 09:55 AM ALT 5 (L) 03/21/2024 12:59 PM ALT 22 07/22/2017 09:55 AM ALKPHOS 88 03/21/2024 12:59 PM ALKPHOS 80 07/22/2017 09:55 AM BILITOT 0.4 03/21/2024 12:59 PM BILITOT 0.4 07/22/2017 09:55 AM PROT 8.5 03/21/2024 12:59 PM ANIONGAP 3 03/21/2024 12:59 PM LDH: Lab Results Component Value Date/Time LDH 267 (H) 03/21/2024 12:59 PM Uric Acid: Lab Results Component Value Date/Time URICACID 4.7 03/21/2024 12:59 PM Radiology: Echocardiogram with somewhat improved EF. Pathology: [facility] BM biopsy Assessment/Plan 1. MDS (myelodysplastic syndrome) (HCC) (Primary) Mr. Palacios most likely has high-risk MDS/AML with TP53 mutation but this has not been confirmed bymutational testing or karyotyping. He currently is transfusion dependent but has no peripheral blasts. He has no exposure to known causes of MDS but has RA and autoimmune dysregulation has been associated with malignancies. - Ambulatory referral to Blood and [facility] H[facility]ology Malignancies Plan: BM with cytogenetics, myeloseq, and chromoseq to better provide treatment recommendation. Currently his mortality risk would be above 40% given co morbidities and performance status. We will see him again in three weeks with results. 2. 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 having achieved remission (HCC) See above. - Uric acid; Future - Magnesium; Future - Phosphorus; Future 3. TP53 gene mutation positive - Ambulatory referral to Blood and [facility] & Hematology Malignancies 4. 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 Clear lungs. 5. Rheumatoid arthritis involving multiple sites, unspecified whether rheumatoid factor present (HCC) Since age 49, hereditary. Managed with immunosuppressants. 6. Atrial fibrillation, unspecified type (HCC) Currently is regular. 7. Tobacco consumption Former smoker Evan Mai MD, MS Division of Oncology [phone] [email or web address] - best way to contact ERTY MANAGER documented in this encounter Nursing Notes * Donis Adams RN - 03/21/2024 1:40 PM CST Taiwo Palacios is a 63 yo M with AML. We will get a bmbx on patient with chromoseq to assess for TP53 mutation. He is getting treatment locally (currently day 2 of his first cycle). If patient relapases and is TP53 positive he may be a candidate for [id number] a CK1-alpha degrader. Will see back in4 weeks. 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) Rheumatoid arthritis involving multiple sites, unspecified whether rheumatoid factor present (HCC) Atrial fibrillation, unspecified type (HCC) Expected: 04/18/2024, Expires: 03/17/2025 Lactate dehydrogenase (LD) Lab Routine 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) Rheumatoid arthritis involving multiple sites, unspecified whether rheumatoid factor present (HCC) Atrial fibrillation, unspecified type (HCC) Expected: 04/18/2024, Expires: 03/17/2025 Uric acid Lab Routine 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) Rheumatoid arthritis involving multiple sites, unspecified whether rheumatoid factor present (HCC) Atrial fibrillation, unspecified type (HCC) Expected: 04/18/2024, Expires: 03/17/2025 Type and screen Lab Routine 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) Rheumatoid arthritis involving multiple sites, unspecified whether rheumatoid factor present (HCC) Atrial fibrillation, unspecified type (HCC) Expected: 04/18/2024, Expires: 03/17/2025 documented as of this encounter Results * Phosphorus (03/21/2024 12:59 PM PROPERTY MANAGER) Phosphorus, pl 4.0 2.3 - 4.5 mg/dL Blood 03/21/2024 12:5 9 PM PROPERTY MANAGER 03/21/2024 1:11 PM PROPERTY MANAGER Evan Mai MD LAB BLOOD ORDERABLES Final Res ult Performing Organization Address City/[facility] Co de Phone Number [facility] [place] [address] * Magnesium (03/21/2024 12:59 PM PROPERTY MANAGER) Magnesium 2.2 1.4 - 2.5 mg/dL Blood 03/21/2024 12:5 9 PM PROPERTY MANAGER 03/21/2024 1:11 PM PROPERTY MANAGER Evan Mai MD LAB BLOOD ORDERABLES Final Res ult Performing Organization Address City/[facility]/ZIP Co de Phone Number [facility] [employer] [place] [address] * Uric acid (03/21/2024 12:59 PM PROPERTY MANAGER) Uric acid 4.7 3.0 - 8.0 mg/dL Blood 03/21/2024 12:5 9 PM PROPERTY MANAGER 03/21/2024 1:11 PM PROPERTY MANAGER Evan Mai MD LAB BLOOD ORDERABLES Final Res ult Performing Organization Address City/[facility]/ZIP Co de Phone Number 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 traZODone (DESYREL) 50 mg tabletIndications:He art failure with mildly reduced ejection fraction (HFmrEF) (HCC),Rheumatoid arthritis involving multiple sites, unspecified whether rheumatoid factor present (HCC),Atrial fibrillation, unspecified type (HCC) Take 1 tablet (50 mg total) by mouth daily ondansetron ODT (ZOFRAN-ODT) 8 mg disintegrating tabletIndications:He art failure with mildly reduced ejection fraction (HFmrEF) (HCC),Rheumatoid arthritis involving multiple sites, unspecified whether rheumatoid factor present (HCC),Atrial fibrillation, unspecified type (HCC) Take 1 tablet (8 mg total) by mouth every 8 (eight) hours as needed 03/16/2024 multivitamin tabletIndications:He art failure with mildly reduced ejection fraction (HFmrEF) (HCC),Rheumatoid arthritis involving multiple sites, unspecified whether rheumatoid factor present (HCC),Atrial fibrillation, unspecified type (HCC) Take 1 tablet by mouth daily leflunomide (ARAVA) 10 mg tabletIndications:He art failure with mildly reduced ejection fraction (HFmrEF) (HCC),Rheumatoid arthritis involving multiple sites, unspecified whether rheumatoid factor present (HCC),Atrial fibrillation, unspecified type (HCC) Take 1 tablet (10 mg total) by mouth daily 01/22/2024 FLUoxetine (PROzac) 20 mg capsuleIndications:H eart failure with mildly reduced ejection fraction (HFmrEF) (HCC),Rheumatoid arthritis involving multiple sites, unspecified whether rheumatoid factor present (HCC),Atrial fibrillation, unspecified type (HCC) Take 1 capsule (20 mg total) by mouth daily 03/01/2024 ferrous sulfate 325 mg (65 mg of elemental iron) tabletIndications:He art failure with mildly reduced ejection fraction (HFmrEF) (HCC),Rheumatoid arthritis involving multiple sites, unspecified whether rheumatoid factor present (HCC),Atrial fibrillation, unspecified type (HCC) Take 1 tablet (325 mg total) by mouth 2 (two) times a day 08/02/2023 ALPRAZolam (XANAX) 0.25 mg tabletIndications:He art failure with mildly reduced ejection fraction (HFmrEF) (HCC),Rheumatoid arthritis involving multiple sites, unspecified whether rheumatoid factor present (HCC),Atrial fibrillation, unspecified type (HCC) Take 1 tablet (0.25 mg total) by mouth nightly as needed Airsupra 90-80 mcg/actuation HFA aerosol inhalerIndications:H eart failure with mildly reduced ejection fraction (HFmrEF) (HCC),Rheumatoid arthritis involving multiple sites, unspecified whether rheumatoid factor present (HCC),Atrial fibrillation, unspecified type (HCC) 03/01/2024 acyclovir (ZOVIRAX) 400 mg tabletIndications:He art failure with mildly reduced ejection fraction (HFmrEF) (HCC),Rheumatoid arthritis involving multiple sites, unspecified whether rheumatoid factor present (HCC),Atrial fibrillation, unspecified type (HCC) Take 1 tablet (400 mg total) by mouth every 4 (four) hours while awake 03/16/2024 ASCORBIC ACID, VITAMIN C, ORALIndications:Hear t failure with mildly reduced ejection fraction (HFmrEF) (HCC),Rheumatoid arthritis involving multiple sites, unspecified whether rheumatoid factor present (HCC),Atrial fibrillation, unspecified type (HCC) Take by mouth added in this encounter Orders Outpatient Referral Count Last Ordered Date Fir st Ordered Date AMB REFERRAL TO BLOOD AND MA RROW TRANSPLANT 1 03/21/2024 Appointment Requests Count Last Ordered Date Fi rst Ordered Date ONCBCN CLINIC APPOINTMENT REQUEST 1 024 ONCBCN LAB APPOINTMENT 1 03/21/2024 documented in this encounter Care Teams Bank Credit Card Collection Clerk Relationship Specialty Start Date End Date Yaya Britt MD PCP - General 07/31/16 Kaleb Tomlin MD [address] [address] Referring Physician Hematology 02/29/24 Evan Mai MD [address] [facility] DIV IM [place] [address] Consulting Physician Internal Medicine 03/01/24 documented as of this encounter
--- OUTSIDE RECORDS SUMMARY | 2024-04-20 02:20 | XMS_ITS | Encounter Summary ---
Author Organization [facility] Address [address] [place] [address] Phone Care Team Providers Care Roller Varnisher Name Role Phone Yaya Britt MD Primary Care Provider [phone] Kaleb Tomlin MD Unavailable [phone] Evan Mai MD Unavailable [phone] Encounter Details Date Type Department Care Team (Late st Contact Info) Description 03/16/2024 Telephone [facility] Bone Marrow Transplant [facility] Floor 6 [place] [address] Donis Adams RN Social History Tobacco Use Types Packs/Day Years [...] on file Legal Sex Male 2:01 AM VISION TEACHER Gender Identity Not on file Sexual Orientation Not on file documented as of this encounter Miscellaneous Notes * Telephone Encounter - Donis Adams RN - 03/16/2024 9:48 AM VISION TEACHER Called and spoke to patient about moving appt from 240 to 140. Patient stated that he is getting treatment that morning. I discussed getting labs at our facility before the appt but he wasn't sure how long his treatment would last. He also was not able to tell me what his treatment is. We will see him in consult to discuss options with new AML diagnosis. ON TEACHER documented in this encounter Plan of Treatment Not on file documented as of this encounter Visit Diagnoses Not on filedocumented in this encounter Care Teams Roller Varnisher Relationship Specialty Start Date End Date Yaya Britt MD PCP - General 07/31/16 Kaleb Tomlin MD [address] [address] Referring Physician Hematology 02/29/24 Evan Mai MD [address] [facility] DIV [place] [address] Consulting Physician Internal Medicine 03/01/24 documented as of this encounter
--- OUTSIDE RECORDS SUMMARY | 2024-04-20 02:20 | XMS_ITS | Encounter Summary ---
Author Organization [facility] Healthcare Address [address] [place] [id number] Care Team Providers Care Forestry Supervisor Name Role Phone Yaya Britt MD Primary Care Provider [phone] Encounter Details Date Type Department Care Team (Late st Contact Info) Description 12/24/2023 Orders Only [facility] Medical Group Orthopedic and Sports Medicine [address] [place] [phone] Paola Grady MA Left knee pain, unspecified chronicity (Primary Dx) Social History Tobacco Use Types [...] on file Legal Sex Male 2:01 AM SYSTEMS CHECKOUT MECHANIC Gender Identity Not on file Sexual Orientation Not on file documented as of this encounter Plan of Treatment Scheduled Orders Name Type Priority Associated Diagnoses Orde r Schedule CBC with auto differential Lab Routine Left knee pain, unspecified chronicity Expected: 12/24/2023, Expires: 12/23/2024 documented as of this encounter Visit Diagnoses Diagnosis Left knee pain, unspecified chronicity- Primary documented in this encounter Care Teams Forestry Supervisor Relationship Specialty Start Date End Date Yaya Britt MD PCP - General 07/31/16 documented as of this encounter
--- OUTSIDE RECORDS SUMMARY | 2024-04-20 02:20 | XMS_ITS | Encounter Summary ---
Author Organization [facility] Healthcare Address [address] [place] [address] Care Team Providers Care Special Agent Fbi Name Role Phone Yaya Britt MD Primary Care Provider Kaleb Tomlin MD Unavailable [phone] Evan Mai MD Unavailable [phone] Encounter Details Date Type Department Care Team (Late st Contact Info) Description 03/21/2024 3:30 PM DIRECTOR OF PRODUCT DESIGN Infusion [facility] - Infusion [address] [facility] [address] [place] [address] 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 having achieved remission [...] on file Legal Sex Male 2:01 AM DIRECTOR OF PRODUCT DESIGN Gender Identity Not on file Sexual Orientation Not on file documented as of this encounter Nursing Notes * Cherry Colin RN - 03/21/2024 3:30 PM CST Pt does not meet parameters for plat infusion. See other encounter for blood documentation. CTOR OF PRODUCT DESIGN * Cherry Colin RN - 03/21/2024 3:30 PM CST Oncology Nursing Note Blood Product Administration [facility] [place] - INFUSION Taiwo Palacios Sr. is a 63 y.o. male who presents for the following transfusion: Blood Pre-treatment Nursing Assessment BP: 108/64 Temp: 36.6 ??C (97.9 ??F) Temp src: Oral Pulse: 58 Resp: 18 SpO2: 99 % Weight: 91 kg (200 lb 9.6 oz) Lab Result Lab Results Component Value Date WBC 0.7 (L) 03/21/2024 HGB 6.5 (L) 03/21/2024 HCT 19.8 (L) 03/21/2024 MCV 85.7 03/21/2024 LABPLAT 45 (L) 03/21/2024 Lab Results Component Value Date NEUTROABS 0.3 (L) 03/21/2024 Patient is within parameters for transfusion. Treatment Consent for transfusion: Active consent noted in patient chart. Prior transfusion reaction: No premedications ordered. Pre blood return: Brisk. Transfused patient with 2 units PRBC per protocol. Taiwo Palacios Sr. tolerated transfusion. IV line flushed until clear and patient observed for 15 minutes post transfusion. Post blood return: Brisk. IV access post infusion: NS. Patient Education Instructed on process and procedures related to today's visit including signs and symptoms of transfusion reaction. Response: Verbalizes understanding Discharge Plan Blood product transfusion discharge instructions given to patient. Future appointments given and reviewed with treatment plan. Discharge Mode: Ambulatory Accompanied by: Spouse Discharged To: Home CTOR OF PRODUCT DESIGN documented in this encounter Plan of Treatment Not on file documented as of this encounter Visit Diagnoses Diagnosis 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 having achieved remission (HCC) documented in this encounter Orders Appointment Requests Count Last Ordered Date Fi rst Ordered Date ONCBCN PLATELET TRANSFUSION APPT 1 03/21/20 24 documented in this encounter Care Teams Special Agent Fbi Relationship Specialty Start Date End Date Yaya Britt MD PCP - General 07/31/16 Kaleb Tomlin MD [address] [phone] Referring Physician Hematology 02/29/24 Evan Mai MD [address] [facility] [address] [address] [place] [address] Consulting Physician Internal Medicine 03/01/24 documented as of this encounter
--- OUTSIDE RECORDS SUMMARY | 2024-04-20 02:20 | XMS_ITS | Encounter Summary ---
Author Organization [facility] Healthcare Address [address] [place] [address] Care Team Providers Care Bond Manager Name Role Phone Yaya Britt MD Primary Care Provider [phone] Reason for Referral * Consultation (Routine) - Closed Specialty Diagnoses / Procedures Referred By Contac t Referred To Contact Physical Therapy Diagnoses Acute pain of left knee Lul Yusuf MD [address] [place] [address] [address] [address] Phone: tel: fax: [facility] [address] [address] Phone: tel: fax: Referral ID Status Reason Start Date Expiration Date V isits Requested Visits Authorized [id number] Closed Specialty Services Required 12/24/2023 01/22/2025 24 24 Question Answer PTRFR PT Evaluate and Treat Therapy options discussed with patient? Yes Location provided for therapy services is: Patient requested/Patient preferred Please select the performing region: External Order [171] To loc/pos [facility] [place] [[id number]] # of visits: 24 Comments Patient is needing physical therapy before he has surgery on 02/23/24. 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
--- OUTSIDE RECORDS SUMMARY | 2024-04-20 02:20 | XMS_ITS | Encounter Summary ---
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) Procedures Transthoracic Echo (TTE) Limited/Followup Brittaney Obregon MD [address] [address] Phone: tel: fax: [facility] Medical Group Referral ID Status Reason Start Date Expiration Date Visits Re quested Visits Authorized [id number] Closed 12/10/2023 01/08/2025 1 1 Reason for Visit * Reason Comments Follow-up 4 mo f/u Atrial Fibrillation Encounter Details Date Type Department Care Team (Late st Contact Info) Description 12/10/2023 11:45 AM CDT Office Visit [facility] Cardiology [address] [facility] [address] [place] [phone] Brittaney Obregon MD [address] [address] Paroxysmal atrial fibrillation (CMS/HCC) (HCC) (Primary Dx); 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) Social History Tobacco Use Types Packs/Day Years Used Date Smoking Tobacco: Former Cigarettes Smokeless Tobacco: Never Alcohol Use Standard Drinks/Week Comments No 0 (1 standard drink = 0.6 oz pur e alcohol) Sex and Gender Information Value Date Recorded Sex Assigned at Not on file 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 Gender Identity Not on file Sexual Orientation Not on file documented as of this encounter Last Filed Vital Signs Vital Sign Reading Time Taken Comments Blood Pressure 110/50 12/10/2023 11:51 AM CDT Pulse 72 12/10/2023 11:51 AM CDT Temperature - - Respiratory Rate - - Oxygen Saturation 96% 12/10/2023 11:51 AM CDT Inhaled Oxygen Concentration - - Weight 97.8 kg (215 lb 9.6 oz) 12/10/2023 11:51 AM CDT Height 175.3 cm (5' 9 ) 12/10/2023 11:51 AM CDT Body Mass Index 31.84 12/10/2023 11:51 AM CDT documented in this encounter Progress Notes * Brittaney Obregon MD - 12/10/2023 11:45 AM CDT CARDIOLOGY CLINIC NOTE CHIEF COMPLAINT / REASON FOR VISIT: F/U HFrEF HISTORY: Taiwo Tapia is a 63 y.o. male with the following history: Paroxysmal atrial fibrillation. Diagnosed in June 2023 in setting of CHF and Influenza A infection. [id number] of 1 for CHF. Heart failure with reduced LVEF with LVEF 30-35% per TTE 06/29/2023 with improvement in LVEF to 40% per TTE 08/26/2023 Rheumatoid arthritis Interim History: Since last visit, Taiwo has been doing overall well. I had ordered a coronary CTA at last visit, however, patient was not able to go get it done. He denies any chest pain. Does get dyspnea on exertion after walking / exerting himself a bit at work. Tolerating current medicationswell. REVIEW OF SYSTEMS: GENERAL: As per HPI CVS: As per HPI PHYSICAL EXAMINATION: BP 110/50 (BP Location: Right arm, Patient Position: Sitting) Pulse 72 Ht 175.3 cm (5' 9 ) Wt97.8 kg (215 lb 9.6 oz) SpO2 96% BMI 31.84 kg/m?? 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 Continue Toprol Continue Entresto Continue Spironolactone Continue Jardiance Will obtain repeat limited TTE to re-evaluate LVEF. IF LVEF remains reduced, then will do ischemic evaluation. If LVEF has normalized, then does not need ischemic evaluation as he does not have anginal symptoms. Paroxysmal atrial fibrillation. Diagnosed in June 2023 in setting of CHF and Influenza A infection. [id number] of 1 for CHF. TSH level was normal. Converted to sinus rhythm on Amiodarone. Continue Toprol, will stop Amiodarone as his PAF was during time of Influenza A infection and CHF, and he has not had recurrence of AFIBsince then; would prefer not to do long-term Amiodarone therapy given his age as well. [id number] 1 for his cardiomyopathy, therefore, anticoagulation not indicated. However, will need to start anticoagulation when he turns 64 as his [id number] will then be 2. Brittaney Obregon M.D., [facility] documented in this encounter Plan of Treatment Not on file documented as of this encounter Results * TRANSTHORACIC ECHO (TTE) LIMITED/FOLLOW UP W LTD DOPPLER/CF WO CONTRAST (01/10/2024 2:05 PM CDT) Anatomical Region Laterality Modality Ultrasound 01/10/2024 1:23 PM CDT Narrative 01/10/2024 5:50 PM CDT [facility] Medical Group Cardiology [address], [place] [address] [address] [facility] [address], [place] [address] P:[phone] P:[phone] Echocardiographic Report Patient Name: TAIWO TAPIA J : 1960 Study Date: 01/10/2024 1:23:03 PM Gender: M Tech: Ref Provider: BRITTANEY OBREGON Height(Cm): 173 BSA: 2.1 Weight(Kg): 92.1 ?Heart Rate: 81 BP: 113 / 73 ?Quality: Good Order Provider: BRITTANEY OBREGON PROCEDURES: Echocardiographic Report: Limited transthoracic echocardiogram with 2D and M-Mode. With Strain Analysis. INDICATIONS: I50.22 Chronic systolic (congestive) heart failure. Measurements: FINDINGS: Interpretation Site: Exam was interpreted at [facility]. Left Ventricle: Normal left ventricular wall thickness. Mild enlargement of left ventricle cavity. Ejection fraction is visually estimated at 50 %. Global Longitudinal Strain is - 17 %. GLS is abnormal. Right Ventricle: Normal right ventricular size. Normal right ventricular systolic function. Left Atrium: The left atrium is normal in size. Right Atrium: The right atrium is normal in size. Atrial Septum: The atrial septum is not well visualized. Mitral Valve: Mitral valve leaflets appear moderately thickened. Aortic Valve: Aortic valve not well visualized. Tricuspid Valve: Normal appearance of the tricuspid valve. Pulmonic Valve: Pulmonic valve not well visualized. Pericardium: Normal pericardium with no significant pericardial effusion. Aorta: Sinus of Valsalva is normal. CONCLUSIONS: Normal left ventricular wall thickness. Mild enlargement of left ventricle cavity. Ejection fraction is visually estimated at 50 %. Global Longitudinal Strain is - 17 %. GLS is abnormal. Mitral valve leaflets appear moderately thickened. Electronically Signed By: Dr. Henna Fry [facility] 2024-01-10 17:49:33 CDT Procedure Note Henna Fry MD - 01/10/2024 [facility] Medical Group Cardiology [address] [facility] [address], [place] [address] [address] [facility] [address], [place] [address] P:[phone] P:[phone] Echocardiographic Report Patient Name: TAIWO TAPIA J : 1960 Study Date: 01/10/2024 1:23:03 PM Gender: M Tech: Ref Provider: BRITTANEY OBREGON Height(Cm): 173 BSA: 2.1 Weight(Kg): 92.1 Heart Rate: 81 BP: 113 / 73 Quality: Good Order Provider: BRITTANEY OBREGON PROCEDURES: Echocardiographic Report: Limited transthoracic echocardiogram with 2D and M-Mode. With StrainAnalysis. INDICATIONS: I50.22 Chronic systolic (congestive) heart failure. Measurements: FINDINGS: Interpretation Site: Exam was interpreted at [facility]. Left Ventricle: Normal left ventricular wall thickness. Mild enlargement of left ventriclecavity. Ejection fraction is visually estimated at 50 %. Global LongitudinalStrain is - 17 %. GLS is abnormal. Right Ventricle: Normal right ventricular size. Normal right ventricular systolicfunction. Left Atrium: The left atrium is normal in size. Right Atrium: The right atrium is normal in size. Atrial Septum: The atrial septum is not well visualized. Mitral Valve: Mitral valve leaflets appear moderately thickened. Aortic Valve: Aortic valve not well visualized. Tricuspid Valve: Normal appearance of the tricuspid valve. Pulmonic Valve: Pulmonic valve not well visualized. Pericardium: Normal pericardium with no significant pericardial effusion. Aorta: Sinus of Valsalva is normal. CONCLUSIONS: Normal left ventricular wall thickness. Mild enlargement of left ventriclecavity. Ejection fraction is visually estimated at 50 %. Global LongitudinalStrain is - 17 %. GLS is abnormal. Mitral valve leaflets appear moderately thickened. Electronically Signed By: Dr. 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 Therapy completed 04/17/2011 12/10/2023 meloxicam (MOBIC) 15 mg tablet take 1 tablet by oral route every day Therapy completed 09/19/2015 12/10/2023 methotrexate 2.5 mg tablet TAKE 8 TABLETS BY MOUTH ONCE A WEEK Therapy completed 08/30/2017 12/10/2023 methylPREDNISolone (MEDROL DOSEPACK) 4 mg tablet follow package directions Therapy completed 01/29/2017 12/10/2023 naproxen (NAPROSYN,ALEVE) 375 mg tablet take 1 tablet by oral route 2 times every day with food Therapy completed 04/17/2011 12/10/2023 amiodarone (PACERONE) 200 mg tablet TAKE 1 TABLET(200 MG) BY MOUTH DAILY Therapy completed 10/06/2023 12/10/2023 documented as of this encounter Care Teams Medical Library Assistant Relationship Specialty Start Date End Date Yaya Britt MD PCP - General 07/31/16 documented as of this encounter
--- OUTSIDE RECORDS SUMMARY | 2024-04-20 02:20 | XMS_ITS | Encounter Summary ---
Author Organization [facility] Healthcare Address [address] [place] [address] Care Team Providers Care Administrative Dietitian Name Role Phone Yaya Britt MD Primary Care Provider [phone] Reason for Referral * Consultation (Routine) - Closed Specialty Diagnoses / Procedures Referred By Contac t Referred To Contact Physical Therapy Diagnoses S/P total knee replacement, left Lul Yusuf MD [address] [place] [address] [address] Phone: tel: fax: [facility] [address] [address] Phone: tel: fax: Referral ID Status Reason Start Date Expiration Date V isits Requested Visits Authorized [id number] Closed Evaluate and Treat 12/24/2023 01/22/2025 24 24 Question Answer PTRFR PT Evaluate and Treat Therapy options discussed with patient? Yes Location provided for therapy services is: Patient requested/Patient preferred Please select the performing region: External Order [171] To loc/pos [facility] [place] [[id number]] # of visits: 24 Comments Total Knee Arthroplasty Taiwo Palacios 1960 DOS: 02/23/24 Eval and Treat s/p left TKA 2-3 times per week for 8 weeks Please contact patient to schedule first post-op appointment for 7 days after surgery. Please note, patient will not be seen back in office until 8 weeks post-op. Please contact our office if patient is not progressing as expected at [phone]. 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 Gender Identity Not on file Sexual Orientation Not on file documented as of this encounter Plan of Treatment Scheduled Referrals Name Type Priority Associated Diagnoses Order Schedule Ambulatory referral order to Physical Therapy - Outpatient Referral Routine S/P total knee replacement, left Expected: 01/07/2024 (Approximate), Expires: 12/23/2024 documented as of this encounter Visit Diagnoses Diagnosis S/P total knee replacement, left- Primary documented in this encounter Care Teams Administrative Dietitian Relationship Specialty Start Date End Date Yaya Britt MD PCP - General 07/31/16 documented as of this encounter
--- OUTSIDE RECORDS SUMMARY | 2024-04-20 02:20 | XMS_ITS | Encounter Summary ---
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) Procedures Transthoracic Echo (TTE) Limited/[place] [address] [place] [address] Phone: tel: fax: [facility] Medical Group Referral ID Status Reason Start Date Expiration Date Visits Re quested Visits Authorized [id number] Closed 12/10/2023 01/08/2025 1 1 Encounter Details Date Type Department Care Team (Latest Contact Info) Description 01/10/2024 1:00 PM CDT Ancillary Procedure [facility] Medical Group Cardiology [address] [address] [address] [place] [address] Heart failure with mildly reduced ejection fraction (HFmrEF) ([facility]) Social History Tobacco Use Types Packs/Day Years [...] on file 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 Gender Identity Not on file Sexual Orientation Not on file documented as of this encounter Last Filed Vital Signs Vital Sign Reading Time Taken Comments Blood Pressure 113/73 01/10/2024 2:05 PM CDT Pulse - - Temperature - - Respiratory Rate - - Oxygen Saturation - - Inhaled Oxygen Concentration - - Weight - - Height - - Body Mass Index - - documented in this encounter Plan of Treatment Not on file documented as of this encounter Procedures Procedure Name Priority Date/Time Associated Diagnosis Comments TRANSTHORACIC ECHO (TTE) LIMITED/FOLLOW UP W LTD DOPPLER/CF WO CONTRAST Routine 01/10/2024 2:05 PM CDT 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 [address] [id number] [address], [place] [address] P:[phone] P:[phone] Echocardiographic Report Patient Name: TAIWO TAPIA J : 1960 Study Date: 01/10/2024 1:23:03 PM Gender: M Tech: MARY Ref Provider: BRITTANEY OBREGON Height(Cm): 173 BSA: 2.1 Weight(Kg): 92.1 ?Heart Rate: 81 BP: 113 / 73 ?Quality: Good Order Provider: BRITTANEY OBREGON PROCEDURES: Echocardiographic Report: Limited transthoracic echocardiogram with 2D and M-Mode. With Strain Analysis. INDICATIONS: I50.22 Chronic systolic (congestive) heart failure. Measurements: FINDINGS: Interpretation Site: Exam was interpreted at [facility]. Left Ventricle: Normal left ventricular wall thickness. [...] thickened. Electronically Signed By: Dr. Henna Fry [facility] 2024-01-10 17:49:33 CDT Procedure Note Henna Fry MD - 01/10/2024 [facility] Medical Group Cardiology [address] [facility] [address] [id number] [address] [facility] [address] [place], [place] [address] P:[phone] P:[phone] Echocardiographic Report Patient Name: TAIWO TAPIA J [...] FINDINGS: Interpretation Site: Exam was interpreted at [facility]. Left Ventricle: Normal left ventricular wall thickness. [...] thickened. Electronically Signed By: Dr. Henna Fry [facility] 2024-01-10 17:49:33 CDT [facility] Raúl Obregon MD CV ECHO PROCEDURES Karina l Result documented in this encounter Visit Diagnoses Diagnosis Heart failure with mildly reduced ejection fraction (HFmrEF) ([facility]) documented in this encounter Care Teams Instructor Trainer Canine Service Relationship Specialty Start Date End Date Yaya Britt MD PCP - General 07/31/16 documented as of this encounter
--- OUTSIDE RECORDS SUMMARY | 2024-04-20 02:20 | XMS_ITS | Encounter Summary ---
Author Organization [facility] Healthcare Address [address] [place] [address] Care Team Providers Care Hospice Admitting Clerk Name Role Phone Yaya Britt MD Primary Care Provider Encounter Details Date Type Department Care Team (Late st Contact Info) Description 12/24/[address] 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
--- OUTSIDE RECORDS SUMMARY | 2024-04-20 02:20 | XMS_ITS | Encounter Summary ---
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 Pt verbalizes understanding. * Telephone Encounter - Ciara Ruby RN - 01/10/2024 2:01 PM CDT Pt to office for TTE today, spoke with Julito, and states problems below. Will forward to RP. Please advise. Had a sore throat 2 months ago, stopped taking his Jardiance 2 weeks later based on a commercial he saw, but started taking it again after 2-3 weeks after his sore throat didn't resolve. Also noticed a rash on his thighs about a month ago that seems to be progressing to his lower legs. documented in this encounter Plan of Treatment Not on file documented as of this encounter Visit Diagnoses Not on filedocumented in this encounter Care Teams Body Masker Relationship Specialty Start Date End Date Yaya Britt MD PCP - General 07/31/16 documented as of this encounter
--- OUTSIDE RECORDS SUMMARY | 2024-04-20 02:20 | XMS_ITS | Encounter Summary ---
Author Organization [facility] Address [address] [place] [address] Phone Care Team Providers Care Instructor Apparel Manufacture Name Role Phone Yaya Britt MD Primary Care Provider Kaleb Tomlin MD Unavailable [phone] Evan Mai MD Unavailable [phone] Encounter Details Date Type Department Care Team (Late st Contact Info) Description 03/01/2024 Orders Only [facility] Bone Marrow Transplant [address] 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 Testing performed by: [facility], [address] [place], [place] [phone] Hct 19.8(L) 38.9 - 50.3 % CERNER BJ Comment:Testing performed by : [facility], [address] [place], [place] [phone] Plt 45(L) 150 - 400 K/cumm CERNER BJ Comment:Testing performed by : [facility], [address] [place], [place] [phone] MPV 8.3 6.8 - 10.4 fL CERNER BJ Comment:Testing performed by : [facility], [address] [place], [place] [phone] RBC 2.31(L) 4.30 - 5.80 M/cumm CERNER BJ Comment:Testing performed by : [facility], [address] [place], [place] [phone] MCV 85.7 81.3 - 96.4 fL CERNER BJ Comment:Testing performed by : [facility], [address] [place], [place] [phone] MCH 28.1 27.1 - 33.3 pg [facility]ER [facility] Comment:Testing performed by : [facility], [address] [place], [place] [phone] MCHC 32.7 32.3 - 35.7 g/dL [facility]ER [facility] Comment:Testing performed by : [facility], [address] [place] [phone] RDW CV 20.4(H) 11.1 - 14.9 % [facility] Comment:Testing performed by : [facility], [address] [place] [phone] NRBC abs 0.00 0.00 - 0.01 K/cumm [facility] Comment:Testing performed by : [facility], [address] [place] [phone] Blood 03/21/2024 1:05 PM CORPORATE STRATEGY ASSOCIATE 03/21/2024 1:06 PM CORPORATE STRATEGY ASSOCIATE Evan Mai MD LAB BLOOD ORDERABLES Final Res ult Performing Organization Address City/[facility]/ZIP Co de Phone Number [facility] [place] [address] * (ABNORMAL) Lactate dehydrogenase (LD) (03/21/2024 12:59 PM CORPORATE STRATEGY ASSOCIATE) [facility] Lactate dehydrogenase (LDH) 267(H) 100 - 250 Units/L Blood 03/21/2024 12:5 9 PM CORPORATE STRATEGY ASSOCIATE 03/21/2024 1:11 PM CORPORATE STRATEGY ASSOCIATE Evan Mai MD LAB BLOOD ORDERABLES Final Res ult Performing Organization Address City/[facility]/ZIP Co de Phone Number [facility] [place] [address] * (ABNORMAL) Comprehensive metabolic panel (03/21/2024 12:59 PM CORPORATE STRATEGY ASSOCIATE) Sodium 133(L) 135 - 145 mmol/L Potassium, pl 4.7 3.3 - 4.9 mmol/L [facility] Chloride 103 97 - 110 mmol/L [facility] CO2 27 22 - 32 mmol/L [facility] Anion gap 3 2 - 15 mmol/L [facility] BUN 26(H) 6 - 25 mg/dL [facility] Creatinine 0.77(L) 0.80 - 1.30 mg/dL [facility] Glucose 119 70 - 199 mg/dL [facility] Comment: Interpretive Data Fasting glucose >/= 126 [...] 2022. Calcium 9.2 8.5 - 10.3 mg/dL [facility] Bilirubin, total 0.4 0.1 - 1.2 mg/dL [facility] Protein, pl 8.5 6.5 - 8.5 g/dL [facility] Albumin 3.2(L) 3.5 - 5.0 g/dL [facility] Alk phos 88 40 - 130 Units/L [facility] ALT 5(L) 7 - 55 Units/L [facility] AST 14 10 - 50 Units/L [facility] Blood 03/21/2024 12:5 9 PM CORPORATE STRATEGY ASSOCIATE 03/21/2024 1:11 PM CORPORATE STRATEGY ASSOCIATE Evan Mai MD LAB BLOOD ORDERABLES Final Res ult [facility] [place] [address] * Type and screen (03/21/2024 12:59 PM CORPORATE STRATEGY ASSOCIATE) ABO Rh A Positive Adalgisa, indirect Negative [facility] Blood 03/21/2024 12:5 9 PM CORPORATE STRATEGY ASSOCIATE 03/21/2024 1:29 PM CORPORATE STRATEGY ASSOCIATE Narrative [facility] - 03/21/2024 2:27 PM CORPORATE STRATEGY ASSOCIATE Has the patient had Daratumumab or Isatuximab in the past 6 months?->Unknown us Evan Mai MD LAB BLOOD BANK TEST ORDERABLES Final Result Performing Organization Address City/[facility] Co de Phone Number [facility] [place] [address] * (ABNORMAL) CMV, IgG Blood (03/21/2024 12:59 PM CORPORATE STRATEGY ASSOCIATE) CMV IgG Positive( A) Negative Comment: Interpretive [...] CMV infection. Blood 03/21/2024 12:5 9 PM CORPORATE STRATEGY ASSOCIATE 03/21/2024 2:17 PM CORPORATE STRATEGY ASSOCIATE Evan Mai MD LAB MICROBIOLOGY - GENERAL ORD ERABLES Final Result Performing Organization Address [facility] Co de Phone Number [facility] Department [place] [address] documented in this encounter Visit Diagnoses Diagnosis 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 having achieved remission (HCC)- Primary 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 having achieved remission (HCC) documented in this encounter Care Teams Instructor Apparel Manufacture Relationship Specialty Start Date End Date Yaya Britt MD PCP - General 07/31/16 Kaleb Tomlin MD [address] [address] Referring Physician Hematology 02/29/24 Evan Mai MD [address] [facility] [address] DIV IM [place] [address] Consulting Physician Internal Medicine 03/01/24 documented as of this encounter
--- OUTSIDE RECORDS SUMMARY | 2024-04-20 02:20 | XMS_ITS | Encounter Summary ---
Author Organization [facility] Healthcare Address [address] [place] [address] Care Team Providers Care Fur Tailor Name Role Phone Yaya Britt MD Primary Care Provider Reason for Referral * Cardiology (Routine) - Authorized Specialty Diagnoses / Procedures Referred By Contac t Referred To Contact Diagnoses Pre-op testing Procedures ECG 12 lead Lul Yusuf MD [address] [place] [address] [facility] [address] [place] [address] Phone: tel: fax: [address] [address] Referral ID Status Reason Start Date Expiration Date V isits Requested Visits Authorized [id number] Authorized 12/24/2023 01/22/2025 1 1 Encounter Details Date Type Department Care Team (Late st Contact Info) Description 12/24/2023 Orders Only [facility] Medical Group Orthopedic and Sports Medicine [address] [place] [phone] Poala Grady MA Pre-op testing (Primary Dx) Social History Tobacco Use Types [...] on file 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 Gender Identity Not on file Sexual Orientation Not on file documented as of this encounter Plan of Treatment Scheduled Orders Name Type Priority Associated Diagnoses Order Schedule CBC with auto differential Lab Routine Pre-op testing Expected: 12/24/2023, Expires: 12/23/2024 Comprehensive metabolic panel Lab Routine Pre-op testing Expected: 12/24/2023, Expires: 12/23/2024 Urinalysis reflex to microscopic and culture Urine, clean voided Microbiology Routine Pre-op testing Expected: 12/24/2023, Expires: 12/23/2024 Hemoglobin A1c Lab Routine Pre-op testing Expected: 12/24/2023, Expires: 12/23/2024 XR Chest Pa Lateral 2 Views Imaging Schedule Routine, Read Routine (OP Routine) Pre-op testing 1 Occurrences starting 12/24/2023 until 12/23/2024 ECG 12 lead ECG Routine Pre-op testing 1 Occurrences starting 12/24/2023 until 12/23/2024 documented as of this encounter Visit Diagnoses Diagnosis Pre-op testing- Primary Unspecified pre-operative examination documented in this encounter Care Teams Fur Tailor Relationship Specialty Start Date End Date Yaya Britt MD PCP - General 07/31/16 documented as of this encounter
--- OUTSIDE RECORDS SUMMARY | 2024-04-20 02:20 | XMS_ITS | Encounter Summary ---
Author Organization [facility] Healthcare Address [address] [place] [address] Care Team Providers Care Miter Saw Operator Name Role Phone Yaya Britt MD Primary Care Provider [phone] Reason for Visit * Diagnostic Imaging (Routine) - Closed Specialty Diagnoses / Procedures Referred By Contac t Referred To Contact Diagnoses Left knee pain, unspecified chronicity Procedures XR Pelvis 1 or 2 Views Lul Yusuf MD [address] [place] [address] [address] [address] Phone: tel: fax: [facility] Medical Group Referral ID Status Reason Start Date Expiration Date Visits Re quested Visits Authorized [id number] Closed 12/24/2023 01/22/2025 1 1 Encounter Details Date Type Department Care Team (Latest Contact Info) Description 12/24/2023 8:50 AM CDT Ancillary Procedure [facility] Medical Group Imaging at [address] [address] Left knee pain, unspecified chronicity [...] on file 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 Gender Identity Not on file Sexual Orientation Not on file documented as of this encounter Plan of Treatment Not on file documented as of this encounter Procedures Procedure Name Priority Date/Time Associated Diagnosis Comments XR PELVIS 1 OR 2 VIEWS Schedule Routine, Read Routine (OP Routine) 12/24/2023 9:22 AM CDT Left knee pain, unspecified chronicity documented in this encounter Results * XR Pelvis 1 or 2 Views (12/24/2023 9:22 AM CDT) Anatomical Region Laterality Modality Body, Pelvis N/A Digital Radiogra phy Narrative 12/24/2023 9:35 AM CDT AP pelvis shows no fracture subluxation dislocation [id number] degenerative changes bilaterally cam deformities bilateral femoral necks us Lul Yusuf MD IMG XR PROCEDURES Final Resu lt documented in this encounter Visit Diagnoses Diagnosis Left knee pain, unspecified chronicity documented in this encounter Care Teams Miter Saw Operator Relationship Specialty Start Date End Date Yaya Britt MD PCP - General 07/31/16 documented as of this encounter
--- OUTSIDE RECORDS SUMMARY | 2024-04-20 02:21 | XMS_ITS | Encounter Summary ---
Author Organization [facility] Medical Group Address [address] [address] [place] [address] Care Team Providers Care Rn Licensed Practical Name Role Phone Yaya Britt MD Primary Care Provider Encounter Details Date Type Department Care Team (Late st Contact Info) Description 07/14/2017 Orders Only [facility] Medical Group at [place] [address], [place] [address] Nataly Seymour MD [address] [facility] [address] [place] [address] Social History Tobacco Use Types Packs/Day Years Used Date Smoking Tobacco: Every Day Smokeless Tobacco: Never Alcohol Use Standard Drinks/Week Comments No 0 (1 standard drink = 0.6 oz pur e alcohol) Sex and Gender Information Value Date Recorded Sex Assigned at Not on file 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 120 tablet 07/14/2017 documented in this encounter Plan of Treatment Not on file documented as of this encounter Visit Diagnoses Not on filedocumented in this encounter Discontinued Medications Medication Sig Discontinue Reason Start Date End Da te HYDROcodone-acetaminophe n (NORCO) 7.5-325 mg per tabletIndications:Pain Take 1 tablet by mouth every 6 (six) hours as needed for pain. Reorder 06/16/2017 07/14/2017 documented as of this encounter Care Teams Rn Licensed Practical Relationship Specialty Start Date End Date Yaya Britt MD PCP - General 07/31/16 documented as of this encounter
--- OUTSIDE RECORDS SUMMARY | 2024-04-20 02:21 | XMS_ITS | Encounter Summary ---
Author Organization [facility] Healthcare Address [address] [place] [address] Care Team Providers Care Case Filler Name Role Phone Yaya Britt MD Primary Care Provider [phone] Encounter Details Date Type Department Care Team (Late st Contact Info) Description 07/06/2023 Orders Only [facility] Medical Group Cardiology [address] [place] [address] [place] [address] [place] [address] Social History Tobacco Use Types Packs/Day Years Used Date Smoking Tobacco: Every Day Smokeless Tobacco: Never Alcohol Use Standard Drinks/Week Comments No 0 (1 standard drink = 0.6 oz pur e alcohol) Sex and Gender Information Value Date Recorded Sex Assigned at Not on file 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 Gender Identity Not on file Sexual Orientation Not on file documented as of this encounter Plan of Treatment Not on file documented as of this encounter Procedures Procedure Name Priority Date/Time Associated Diagnosis Comments CARDIOLOGY DOCUMENT SCAN Routine 024 10:30 AM WHARF ATTENDANT CARDIOLOGY DOCUMENT SCAN Routine 024 10:18 AM WHARF ATTENDANT CARDIOLOGY DOCUMENT SCAN Routine 024 10:03 AM WHARF ATTENDANT documented in this encounter Results * Cardiology Document Scan (07/03/2023 10:30 AM WHARF ATTENDANT) Anatomical Region Laterality Modality Other us Jose Elias Sage MD CV CARDIAC [facility] Final Result * Cardiology Document Scan (07/01/2023 10:18 AM WHARF ATTENDANT) Anatomical Region Laterality Modality Other Haydee Obregon MD CV CARDIAC SERVICES PRO CEDURES Final Result * Cardiology Document Scan (06/30/2023 10:03 AM WHARF ATTENDANT) Anatomical Region Laterality Modality Other us Haydee Obregon MD CV CARDIAC SERVICES PRO CEDURES Final Result documented in this encounter Visit Diagnoses Not on filedocumented in this encounter Care Teams Case Filler Relationship Specialty Start Date End Date Yaya Britt MD PCP - General 07/31/16 documented as of this encounter
--- OUTSIDE RECORDS SUMMARY | 2024-04-20 02:21 | XMS_ITS | Encounter Summary ---
Author Organization [facility] Healthcare Address [address] [place] [address] Care Team Providers Care Outdoor Illuminating Engineer Name Role Phone Yaya Britt MD Primary Care Provider [phone] Encounter Details Date Type Department Care Team (Late st Contact Info) Description 07/14/2023 Orders Only [facility] Medical Group Cardiology [address] [place] [phone] Inge Price NP [address] [place] [address] Social History Tobacco Use Types Packs/Day Years Used Date Smoking Tobacco: Every Day Smokeless Tobacco: Never Alcohol Use Standard Drinks/Week Comments No 0 (1 standard drink = 0.6 oz pur e alcohol) Sex and Gender Information Value Date Recorded Sex Assigned at Not on file 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 Gender Identity Not on file Sexual Orientation Not on file documented as of this encounter Plan of Treatment Not on file documented as of this encounter Procedures Procedure Name Priority Date/Time Associated Diagnosis Comments CARDIOLOGY DOCUMENT SCAN Routine 024 10:36 AM BAND DIRECTOR documented in this encounter Results * Cardiology Document Scan (07/02/2023 10:36 AM BAND DIRECTOR) Anatomical Region Laterality Modality Other Inge Price NP CV CARDIAC SERVICES PROCEDUR ES Final Result documented in this encounter Visit Diagnoses Not on filedocumented in this encounter Care Teams Outdoor Illuminating Engineer Relationship Specialty Start Date End Date Yaya Britt MD PCP - General 07/31/16 documented as of this encounter
--- OUTSIDE RECORDS SUMMARY | 2024-04-20 02:21 | XMS_ITS | Encounter Summary ---
Author Organization [facility] Medical Group Address [address] [place] [address] Care Team Providers Care Strategic Development Manager Name Role Phone Yaya Britt MD Primary Care Provider [phone] Encounter Details Date Type Department Care Team (Late st Contact Info) Description 01/29/2017 Orders Only [facility] Medical Group at [place] [address], [place] [address] Nataly Seymour MD [address] [facility] [address] [place] [address] Social History Tobacco Use Types Packs/Day Years Used Date Smoking Tobacco: Every Day Smokeless Tobacco: Never Alcohol Use Standard Drinks/Week Comments No 0 (1 standard drink = 0.6 oz pur e alcohol) Sex and Gender Information Value Date Recorded Sex Assigned at Not on file 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 Gender Identity Not on file Sexual Orientation Not on file documented as of this encounter Ordered Prescriptions Prescription Sig Dispense Quantity Refills Last Filled Start Date End Date methylPREDNISolone (MEDROL DOSEPACK) 4 mg tablet follow package directions 21 tablet 01/29/2017 4 documented in this encounter Plan of Treatment Not on file documented as of this encounter Visit Diagnoses Not on filedocumented in this encounter Discontinued Medications Medication Sig Discontinue Reason Start Date End Da te methylPREDNISolone (MEDROL DOSEPACK) 4 mg tablet follow package directions Reorder 11/13/2016 01/29/2017 documented as of this encounter Care Teams Strategic Development Manager Relationship Specialty Start Date End Date Yaya Britt MD PCP - General 07/31/16 documented as of this encounter
--- OUTSIDE RECORDS SUMMARY | 2024-04-20 02:21 | XMS_ITS | Encounter Summary ---
Author Organization [facility] Address [address] [place] [address] Care Team Providers Care Cement Patcher Name Role Phone Yaya Britt MD Primary Care Provider Encounter Details Date Type Department Care Team (Late st Contact Info) Description 01/15/2017 11:00 AM CDT Office Visit [facility] Medical [facility] at [address] [phone] Nataly Seymour MD [address] [facility] [address] [place] [address] Rheumatoid arthritis of multiple sites without rheumatoid factor (CMS/HCC) (Primary Dx); High risk medication use; Anemia, unspecified type; Chronic midline low back pain without sciatica Social History Tobacco Use Types Packs/Day Years Used Date Smoking Tobacco: Every Day Smokeless Tobacco: Never Alcohol Use Standard Drinks/Week Comments No 0 (1 standard drink = 0.6 oz pur e alcohol) Sex and Gender Information Value Date Recorded Sex Assigned at Not on file 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 Gender Identity Not on file Sexual Orientation Not on file documented as of this encounter Last Filed Vital Signs Vital Sign Reading Time Taken Comments Blood Pressure 116/74 01/15/2017 11:00 AM CDT Pulse 69 01/15/2017 11:00 AM CDT Temperature 37.1 ??C (98.8 ??F) 01/15/2017 11:00 AM C DT Respiratory Rate 18 01/15/2017 11:00 AM CDT Oxygen Saturation 98% 01/15/2017 11:00 AM CDT Inhaled Oxygen Concentration - - Weight 96.2 kg (212 lb) 01/15/2017 11:00 AM CDT Height 172.7 cm (5' 8 ) 01/15/2017 11:00 AM CDT Body Mass Index 32.23 01/15/2017 11:00 AM CDT documented in this encounter Ordered Prescriptions Prescription Sig Dispense Quantity Refills Last Filled Start Date End Date HYDROcodone-acetam inophen (NORCO) 7.5-325 mg per tabletIndications: Pain Take 1 tablet by mouth every 6 (six) hours as needed for pain. 120 tablet 01/15/2017 7 methotrexate 2.5 mg tablet Take 8 tablets (20 mg total) by mouth once a week. 32 tablet 2 01/15/2017 7 documented in this encounter Progress Notes * Nataly Seymour MD - 01/15/2017 11:00 AM CDT [facility] at [facility]- Rheumatology [address] [place] [address] [place] [address] Subjective/Objective Patient ID: Taiwo Palacios is a 56 y.o. male. Chief Complaint RA HPI on humira, joint pain worsened, left knee hurting and swollen, right ankle also hurts, am stiffness: all day, took MTX before, stopped due to costs, works 10 hours every night. Walks a lot. Back also hurts. Takes iron for anemia. HOME MEDICATIONS : calcium carbonate (CALCIUM 600) 1,500 mg (600 mg of elemental calcium) tablet etanercept (ENBREL SURECLICK) 50 mg/mL (0.98 mL) pen injector folic acid (FOLVITE) 1 mg tablet folic acid (FOLVITE) 800 mcg tablet glucosamine sulfate (GLUCOSAMINE) 500 mg tablet HYDROcodone-acetaminophen (NORCO) 7.5-325 mg per tablet meloxicam (MOBIC) 15 mg tablet methotrexate 2.5 mg tablet methylPREDNISolone (MEDROL DOSEPACK) 4 mg tablet naproxen (NAPROSYN,ALEVE) 375 mg tablet predniSONE (DELTASONE) 5 mg tablet HYDROcodone-acetaminophen (NORCO) 7.5-325 mg per tablet methotrexate 2.5 mg tablet No Known Allergies Review of Systems Constitution: Positive for malaise/fatigue. Negative for fever and weight loss. Respiratory: Negative for shortness of breath. Skin: Negative for rash. Musculoskeletal: Positive for back pain, joint pain and joint swelling. Gastrointestinal: Negative for abdominal pain. Vitals: 01/15/17 1100 BP: 116/74 Pulse: 69 Resp: 18 Temp: 37.1 ??C (98.8 ??F) SpO2: 98% Physical Exam Constitutional: He is oriented to person, place, and time. He appears well- developed and well-nourished. No distress. HENT: Head: Normocephalic and atraumatic. Nose: Nose normal. Eyes: Conjunctivae are normal. Neck: Normal range of motion. Cardiovascular: Normal rate. Pulmonary/Chest: Effort normal. Abdominal: Soft. Musculoskeletal: He exhibits tenderness. +synovitis - left knee and right ankle, +ulnar deviation at MCPs of both hands, finger joints nontender Lymphadenopathy: He has no cervical adenopathy. Neurological: He is alert and oriented to person, place, and time. Skin: Skin is dry. No rash noted. Psychiatric: He has a normal mood and affect. LABS Lab Results Component Value Date HGB 13.7 (L) 02/17/2016 HCT 40.1 02/17/2016 MCV 96.6 (H) 02/17/2016 Chemistry Component Value Date/Time CO2 23 02/17/2016 0550 CREATININE 0.89 02/17/2016 0550 Component Value Date/Time CALCIUM 9.2 02/17/2016 0550 ALKPHOS 85 02/17/2016 0550 AST 19 02/17/2016 0550 ALT 14 02/17/2016 0550 BILITOT 0.38 02/17/2016 0550 Assessment/Plan Diagnoses and all orders for this visit: 1. Rheumatoid arthritis of multiple sites without rheumatoid factor (CMS/HCC) (Primary) Worsened, restart MTX 20mg/wk, continue humira, return in 3 months. - Erythrocyte sedimentation rate; Future 2. High risk medication use To start MTX, order CBC and CMP. - CBC with auto differential; Future - Comprehensive metabolic panel; Future 3. Anemia, unspecified type Takes iron, repeat CBC 4. Chronic midline low back pain without sciatica Consider PT Other orders - methotrexate 2.5 mg tablet; Take 8 tablets (20 mg total) by mouth once a week. - HYDROcodone-acetaminophen (NORCO) 7.5-325 mg per tablet; Take 1 tablet by mouth every 6 (six) hours as needed for pain. Nataly Seymour MD documented in this encounter Plan of Treatment Not on file documented as of this encounter Visit Diagnoses Diagnosis Rheumatoid arthritis of multiple sites without rheumatoid factor (CMS/HCC) (HCC)- Primary High risk medication use Anemia, unspecified type Chronic midline low back pain without sciatica documented in this encounter Discontinued Medications Medication Sig Discontinue Reason Start Date End Da te methotrexate 2.5 mg tablet TAKE 8 TABLET (2.5MG) BY ORAL ROUTE ONCE WEEKLY Reorder 06/15/2011 01/15/2017 HYDROcodone-acetaminophe n (NORCO) 7.5-325 mg per tabletIndications:Pain Take 1 tablet by mouth every 6 (six) hours as needed for pain. Reorder 12/18/2016 01/15/2017 documented as of this encounter Care Teams Cement Patcher Relationship Specialty Start Date End Date Yaya Britt MD PCP - General 07/31/16 documented as of this encounter
--- OUTSIDE RECORDS SUMMARY | 2024-04-20 02:21 | XMS_ITS | Encounter Summary ---
Author Organization [facility] Healthcare Address [address] [place] [address] Care Team Providers Care Chiropractic Assistant Name Role Phone Yaya Britt MD Primary Care Provider [phone] Reason for Referral * Diagnostic Imaging (Routine) - Closed Specialty Diagnoses / Procedures Referred By aTco crawford Referred To Contact Diagnoses Other rheumatoid arthritis with rheumatoid factor of multiple sites (HCC) Procedures XR Knee Left 1 or 2 Views Nataly Seymour MD Phone: tel: fax: [address] [place] [address] Referral ID Status Reason Start Date Expiration Date Visits Re quested Visits Authorized [id number] Closed 01/30/2022 03/01/2023 1 1 Reason for Visit * Diagnostic Imaging (Routine) - Closed Specialty Diagnoses / Procedures Referred By Taco crawford Referred To Contact Diagnoses Other rheumatoid arthritis with rheumatoid factor of multiple sites (HCC) Procedures XR Knee Left 1 or 2 Views Nataly Seymour MD Phone: tel: fax: [address] [place] [address] Referral ID Status Reason Start Date Expiration Date Visits Re quested Visits Authorized [id number] Closed 01/30/2022 03/01/2023 1 1 Encounter Details Date Type Department Care Team (Latest Contact Info) Description 01/30/2022 3:39 PM CDT - 01/30/2022 11:59 PM CDT Hospital Encounter 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 120 tablet 07/14/2017 predniSONE (DELTASONE) 5 mg tablet take 3 (15MG) by oral route every day for 7 days then take 2 tabs a day for 7 days, then 1 tab a day for 7 days 42 0 09/21/2016 calcium carbonate (CALCIUM 600) 1,500 mg (600 mg of elemental calcium) tablet 0 04/17/2011 4 etanercept (ENBREL SURECLICK) 50 mg/mL (0.98 mL) pen injector inject 1 milliliter by subcutaneous route every week 4 Syringe 11 01/08/2014 4 glucosamine sulfate (GLUCOSAMINE) 500 mg tablet 500 mg. 0 04/17/2011 4 meloxicam (MOBIC) 15 mg tablet take 1 tablet by oral route every day 30 3 09/19/2015 4 methotrexate 2.5 mg tablet TAKE 8 TABLETS BY MOUTH ONCE A WEEK 40 tablet 08/30/2017 4 methylPREDNISolo ne (MEDROL DOSEPACK) 4 mg tablet follow package directions 21 tablet 01/29/2017 4 naproxen (NAPROSYN,ALEVE) 375 mg tablet take 1 tablet by oral route 2 times every day with food 0 04/17/2011 4 documented as of this encounter Discharge Disposition Disposition Code Departure Means Destination Discharge to home or self care documented in this encounter Plan of Treatment Not on file documented as of this encounter Procedures Procedure Name Priority Date/Time Associated Diagnosis Comments XR KNEE LEFT 1 OR 2 VIEWS Schedule Routine, Read Routine (OP Routine) 01/30/2022 3:58 PM CDT Other rheumatoid arthritis with rheumatoid factor of multiple sites (HCC) documented in this encounter Results * XR Knee Left 1 or 2 Views (01/30/2022 3:58 PM CDT) Anatomical Region Laterality Modality Lower Extremities, Knee Left Computed Radiography 01/30/2022 4:01 PM CDT Impressions 01/30/2022 4:01 PM CDT 1. ??Markedly advanced osteoarthritic disease of the 3 compartments of the left knee joint. 2. ??Medial subluxation of the femoral condyles upon the tibial plateau segments. ??This is likely chronic. 3. ??Small reactive joint effusion in the anterior knee. Electronically signed by: Octavio Arredondo M.D. Narrative 01/30/2022 4:01 PM CDT Exam: XR KNEE LEFT 1 OR 2 VIEWS Date/Time of Exam: 01/30/2022 3:45 PM Reason For Exam: Left knee pain. Diagnosis: Other rheumatoid arthritis with rheumatoid factor of multiple sites (HCC) [M05.89 (ICD-10-CM)] Findings: Standing AP and lateral projections obtained. There are no signs of acute fracture of the bony structures of left knee. ??There is very marked arthritic narrowing of the medial joint space with lkjc-nv-fnby appearance and marked narrowing of the lateral joint space with near irnx-lp-ppjm appearance there. ??There is marked narrowing of the patellofemoral joint. ??Spurring is seen about the articular margins of the knee joint. ??There is some medial subluxation of the femoral condyles upon the tibial plateau segments. A small joint effusion is present. Procedure Note Octavio Arredondo MD - 01/30/2022 Exam: XR KNEE LEFT 1 OR 2 VIEWS Date/Time of Exam: 01/30/2022 3:45 PM Reason For Exam: Left knee pain. Diagnosis: Other rheumatoid arthritis with rheumatoid factor of multiple sites (HCC) [M05.89 (ICD-10-CM)] Findings: Standing AP and lateral projections obtained. There are no signs of acute fracture of the bony structures of left knee. There is very marked arthritic narrowing of the medial joint space with ywno-wj-emua appearance and marked narrowing of the lateral joint space with near afax-ok-sinp appearance there. There is marked narrowing of the patellofemoral joint. Spurring is seen about the articular margins of the knee joint. There is some medial subluxation of the femoral condyles upon the tibial plateau segments. A small joint effusion is present. IMPRESSION: 1. Markedly advanced osteoarthritic disease of the 3 compartments of the left knee joint. 2. Medial subluxation of the femoral condyles upon the tibial plateau segments. This is likely chronic. 3. Small reactive joint effusion in the anterior knee. Electronically signed by: Octavio Arredondo M.D. Nataly Seymour MD IMG XR PROCEDURES Final Result documented in this encounter Visit Diagnoses Diagnosis Other rheumatoid arthritis with rheumatoid factor of multiple sites (HCC) documented in this encounter Care Teams Chiropractic Assistant Relationship Specialty Start Date End Date Yaya Britt MD PCP - General 07/31/16 documented as of this encounter
--- OUTSIDE RECORDS SUMMARY | 2024-04-20 02:21 | XMS_ITS | Encounter Summary ---
Author Organization [facility] Medical [facility] Address [address] [place] [address] Care Team Providers Care Vacuum Cleaner Operator Name Role Phone Yaya Britt MD Primary Care Provider Reason for Visit * Reason Onset Date Comments Dr. Seymour Med Refill 10/16/2016 Encounter Details Date Type Department Care Team (Late st Contact Info) Description 10/16/2016 Telephone [facility] Patient Access [address] [place] [address] Nataly Seymour MD [address] [facility] [address] [place] [address] Dr. 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 Preferred Pharmacy: On file Additional Comments: Patient requesting new script and would like to mixing picker tender on Wednesday - please advise. documented in this encounter Plan of Treatment Not on file documented as of this encounter Visit Diagnoses Not on filedocumented in this encounter Care Teams Vacuum Cleaner Operator Relationship Specialty Start Date End Date Yaya Britt MD PCP - General 07/31/16 documented as of this encounter
--- OUTSIDE RECORDS SUMMARY | 2024-04-20 02:21 | XMS_ITS | Encounter Summary ---
Author Organization [facility] Medical Group Address [address] [place] [address] Care Team Providers Care Pattern Wheel Maker Name Role Phone Yaya Britt MD Primary Care Provider Encounter Details Date Type Department Care Team (Late st Contact Info) Description 03/18/2017 Orders Only [facility] Medical [facility] at [id number], [place] [address] Nataly Seymour MD [address] [facility] [address] [place] [address] Social History Tobacco Use Types Packs/Day Years Used Date Smoking Tobacco: Every Day Smokeless Tobacco: Never Alcohol Use Standard Drinks/Week Comments No 0 (1 standard drink = 0.6 oz pur e alcohol) Sex and Gender Information Value Date Recorded Sex Assigned at Not on file 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 120 tablet 03/18/2017 04/13/2017 documented in this encounter Plan of Treatment Not on file documented as of this encounter Visit Diagnoses Not on filedocumented in this encounter Discontinued Medications Medication Sig Discontinue Reason Start Date End Da te HYDROcodone-acetaminophe n (NORCO) 7.5-325 mg per tabletIndications:Pain Take 1 tablet by mouth every 6 (six) hours as needed for pain. Reorder 02/15/2017 03/18/2017 documented as of this encounter Care Teams Pattern Wheel Maker Relationship Specialty Start Date End Date Yaya Britt MD PCP - General 07/31/16 documented as of this encounter
--- OUTSIDE RECORDS SUMMARY | 2024-04-20 02:21 | XMS_ITS | Encounter Summary ---
Author Organization [facility] Address [address] [place] [address] Care Team Providers Care Environmental Studies Professor Name Role Phone Yaya Britt MD Primary Care Provider [phone] Encounter Details Date Type Department Care Team (Late st Contact Info) Description 04/13/2017 Orders Only [facility] at [address], [place] [address] Nataly Seymour MD [address] [facility] [address] [place] [address] Social History Tobacco Use Types Packs/Day Years Used Date Smoking Tobacco: Every Day Smokeless Tobacco: Never Alcohol Use Standard Drinks/Week Comments No 0 (1 standard drink = 0.6 oz pur e alcohol) Sex and Gender Information Value Date Recorded Sex Assigned at Not on file 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 120 tablet 04/15/2017 7 documented in this encounter Plan of Treatment Not on file documented as of this encounter Visit Diagnoses Not on filedocumented in this encounter Discontinued Medications Medication Sig Discontinue Reason Start Date End Da te HYDROcodone-acetaminophe n (NORCO) 7.5-325 mg per tabletIndications:Pain Take 1 tablet by mouth every 6 (six) hours as needed for pain. Reorder 03/18/2017 04/13/2017 documented as of this encounter Care Teams Environmental Studies Professor Relationship Specialty Start Date End Date Yaya Britt MD PCP - General 07/31/16 documented as of this encounter
--- OUTSIDE RECORDS SUMMARY | 2024-04-20 02:21 | XMS_ITS | Encounter Summary ---
Author Organization [facility] Healthcare Address [address] [place] [address] Care Team Providers Care Medical Lab Technician Name Role Phone Yaya Britt MD Primary Care Provider Encounter Details Date Type Department Care Team (Late st Contact Info) Description 11/13/2015 9:46 AM CDT - 11/13/2015 11:59 PM CDT Hospital Encounter [facility] Nataly Seymour MD [address] [facility] [address] [place] [address] Rheumatoid arthritis (CMS/HCC); Other care home (current) drug therapy Social History Tobacco Use Types Packs/Day Years Used Date Smoking Tobacco: Every Day Alcohol Use Standard Drinks/Week Comments No 0 (1 standard drink = 0.6 oz pur e alcohol) Sex and Gender Information Value Date Recorded Sex Assigned at Not on file 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 Gender Identity Not on file Sexual Orientation Not on file documented as of this encounter Medications at Time of Discharge folic acid (FOLVITE) 1 mg tablet take 1 Tablet by oral route every day 30 0 01/08/2014 folic acid (FOLVITE) 800 mcg tablet take 1 tablet (0.8MG) by oral route every day 0 04/17/2011 HYDROcodone-acet aminophen (NORCO) 7.5-325 mg per tablet take 1 tablet by oral route every 6 hours as needed for pain 120 0 01/08/2014 7 adalimumab (HUMIRA PEN) 40 mg/0.8 mL pen injector kit 40mg SC q 2 weeks 2 kit 11 06/22/2014 7 calcium carbonate (CALCIUM 600) 1,500 mg (600 [...] 4 methotrexate 2.5 mg tablet TAKE 8 TABLET (2.5MG) BY ORAL ROUTE ONCE WEEKLY 40 2 06/15/2011 7 naproxen (NAPROSYN,ALEVE) 375 mg tablet take 1 tablet by oral route 2 times every day with food 0 04/17/2011 4 documented as of this encounter Plan of Treatment Not on file documented as of this encounter Visit Diagnoses Diagnosis Rheumatoid arthritis (HCC) Other terminal manager (current) drug therapy documented in this encounter Care Teams Medical Lab Technician Relationship Specialty Start Date End Date Yaya Britt MD PCP - General 09/13/13 07/30/16 documented as of this encounter
--- OUTSIDE RECORDS SUMMARY | 2024-04-20 02:21 | XMS_ITS | Encounter Summary ---
Author Organization [facility] Healthcare Address [address] [place] [address] Care Team Providers Care Ice Cream Dipper Name Role Phone Yaya Britt MD Primary Care Provider Encounter Details Date Type Department Care Team (Late st Contact Info) Description 12/19/2015 9:55 AM CDT - 12/19/2015 11:59 PM CDT Hospital Encounter [facility] Nataly Seymour MD [address] [facility] [address] [place] [address] Other [facility] (current) drug therapy Social History Tobacco Use Types Packs/Day Years Used Date Smoking Tobacco: Every Day Alcohol Use Standard Drinks/Week Comments No 0 (1 standard drink = 0.6 oz pur e alcohol) Sex and Gender Information Value Date Recorded Sex Assigned at Not on file 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
--- OUTSIDE RECORDS SUMMARY | 2024-04-20 02:21 | XMS_ITS | Encounter Summary ---
Author Organization [facility] Medical Group Address [address] [place] [address] [address] [place] [address] Care Team Providers Care Process Improvement Manager Name Role Phone Yaya Britt MD Primary Care Provider Reason for Visit * Reason Onset Date Comments Prior auth for humira completed and faxed 2016 form put in bin for scanning Encounter Details Date Type Department Care Team (Late st Contact Info) Description 12/14/2016 Telephone [facility] Medical Group at [address] [phone] Nataly Seymour MD [address] [facility] [address] [place] [address] Prior auth for humira completed and faxed (form put in bin for scanning) Social History Tobacco Use Types Packs/Day Years Used Date Smoking Tobacco: Every Day Alcohol Use Standard Drinks/Week Comments No 0 (1 standard drink = 0.6 oz pur e alcohol) Sex and Gender Information Value Date Recorded Sex Assigned at Not on file 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 documented in this encounter Plan of Treatment Not on file documented as of this encounter Visit Diagnoses Not on filedocumented in this encounter Care Teams Process Improvement Manager Relationship Specialty Start Date End Date Yaya Britt MD PCP - General 07/31/16 documented as of this encounter
--- OUTSIDE RECORDS SUMMARY | 2024-04-20 02:21 | XMS_ITS | Encounter Summary ---
Author Organization [facility] Address [address] [place] [address] Care Team Providers Care Lithographic General Worker Name Role Phone Yaya Britt MD Primary Care Provider Encounter Details Date Type Department Care Team (Late st Contact Info) Description 02/17/2016 10:37 AM CDT - 02/17/2016 11:59 PM CDT Hospital Encounter [facility] Nataly Seymour MD [address] [facility] [address] [place] [address] Rheumatoid arthritis (CMS/HCC); Other half-way (current) drug therapy Social History Tobacco Use Types Packs/Day Years Used Date Smoking Tobacco: Every Day Alcohol Use Standard Drinks/Week Comments No 0 (1 standard drink = 0.6 oz pur e alcohol) Sex and Gender Information Value Date Recorded Sex Assigned at Not on file 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
--- OUTSIDE RECORDS SUMMARY | 2024-04-20 02:21 | XMS_ITS | Encounter Summary ---
Author Organization [facility] Address [address] [place] [address] Care Team Providers Care Regulatory Coordinator Name Role Phone Yaya Britt MD Primary Care Provider [phone] Encounter Details Date Type Department Care Team (Late st Contact Info) Description 08/09/2023 Orders Only [facility] Cardiology [address] [place] [address] Provider, MD Austyn [address] [place], [place] [id number] Social History Tobacco Use Types Packs/Day Years Used Date Smoking Tobacco: Former Cigarettes Smokeless Tobacco: Never Alcohol Use Standard Drinks/Week Comments No 0 (1 standard drink = 0.6 oz pur e alcohol) Sex and Gender Information Value Date Recorded Sex Assigned at Not on file 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 Gender Identity Not on file Sexual Orientation Not on file documented as of this encounter Plan of Treatment Not on file documented as of this encounter Procedures Procedure Name Priority Date/Time Associated Diagnosis Comments LIPID PANEL Routine 07/16/2023 2:50 PM CDT documented in this encounter Results * Lipid panel (07/16/2023 2:50 PM CDT) SCRIBED Cholesterol, Total 146 <200 EXTERNAL LAB SCRIBED HDL 40 >39 EXTERNAL LAB SCRIBED LDL 90 <130 EXTERNAL LAB SCRIBED Triglycerides 81 <150 EXTERNAL LAB Blood Historical Provider LAB BLOOD ORDERABLES Edit ed Result - Final EXTERNAL LAB documented in this encounter Visit Diagnoses Not on filedocumented in this encounter Care Teams Regulatory Coordinator Relationship Specialty Start Date End Date Yaya Britt MD PCP - General 07/31/16 documented as of this encounter
--- OUTSIDE RECORDS SUMMARY | 2024-04-20 02:21 | XMS_ITS | Encounter Summary ---
Author Organization [facility] Address [address] [facility] [address] [place] [address] Care Team Providers Care Hypoid Gear Generator Name Role Phone Yaya Britt MD Primary Care Provider [phone] Encounter Details Date Type Department Care Team (Late st Contact Info) Description 08/26/2017 Orders Only [facility] Information Management [address] [place] [id number] Scanning, Provider Social History Tobacco Use Types Packs/Day Years Used Date Smoking Tobacco: Every Day Smokeless Tobacco: Never Alcohol Use Standard Drinks/Week Comments No 0 (1 standard drink = 0.6 oz pur e alcohol) Sex and Gender Information Value Date Recorded Sex Assigned at Not on file 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 Gender Identity Not on file Sexual Orientation Not on file documented as of this encounter Plan of Treatment Not on file documented as of this encounter Procedures Procedure Name Priority Date/Time Associated Diagnosis Comments SCAN - LABS 08/26/2017 8:15 AM CDT documented in this encounter Results * SCAN - LABS (08/26/2017 8:15 AM CDT) us Provider Scanning Final Result documented in this encounter Visit Diagnoses Not on filedocumented in this encounter Care Teams Hypoid Gear Generator Relationship Specialty Start Date End Date Yaya Britt MD PCP - General 07/31/16 documented as of this encounter
--- OUTSIDE RECORDS SUMMARY | 2024-04-20 02:21 | XMS_ITS | Encounter Summary ---
Author Organization [facility] Address [address] [facility] [address] [facility] [address] [place] [address] Care Team Providers Care Freight Solicitor Name Role Phone Yaya Britt MD Primary Care Provider Reason for Visit * Reason Onset Date Comments Du Med Refill 12/18/2016 Encounter Details Date Type Department Care Team (Late st Contact Info) Description 12/18/2016 Telephone [facility] at [address] [phone] Nataly Seymour MD [address] [facility] [address] [place], [place] [id number] Du Med Refill Social History Tobacco Use Types Packs/Day Years Used Date Smoking Tobacco: Every Day Alcohol Use Standard Drinks/Week Comments No 0 (1 standard drink = 0.6 oz pur e alcohol) Sex and Gender Information Value Date Recorded Sex Assigned at Not on file 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 Gender Identity Not on file Sexual Orientation Not on file documented as of this encounter Miscellaneous Notes * Telephone Encounter - Foster Lara MA - 12/18/2016 10:07 AM CDT Pt picked up * Telephone Encounter - Nataly Seymour MD - 12/18/2016 9:49 AM CDT Script printed * Telephone Encounter - Nora Riggs - 12/18/2016 8:45 AM CDT 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
--- OUTSIDE RECORDS SUMMARY | 2024-04-20 02:21 | XMS_ITS | Encounter Summary ---
Author Organization [facility] Address [address] [facility] [address] [place] [address] Care Team Providers Care Mixer Foam Rubber Name Role Phone Yaya Britt MD Primary Care Provider Encounter Details Date Type Department Care Team (Late st Contact Info) Description 02/03/2017 Orders Only [facility] Health Information Management [address] [place] [address] Scanning, Provider Social History Tobacco Use Types Packs/Day Years Used Date Smoking Tobacco: Every Day Smokeless Tobacco: Never Alcohol Use Standard Drinks/Week Comments No 0 (1 standard drink = 0.6 oz pur e alcohol) Sex and Gender Information Value Date Recorded Sex Assigned at Not on file 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
--- OUTSIDE RECORDS SUMMARY | 2024-04-20 02:21 | XMS_ITS | Encounter Summary ---
Author Organization [facility] Address [address] [place] [address] Care Team Providers Care Rib Knitter Name Role Phone Yaya Britt MD Primary Care Provider Encounter Details Date Type Department Care Team (Late st Contact Info) Description 11/16/2016 Orders Only [facility] at [place] [address] [address] Nataly Seymour MD [address] [facility] [address] [place] [address] Social History Tobacco Use Types Packs/Day Years Used Date Smoking Tobacco: Every Day Alcohol Use Standard Drinks/Week Comments No 0 (1 standard drink = 0.6 oz pur e alcohol) Sex and Gender Information Value Date Recorded Sex Assigned at Not on file 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 120 tablet 11/16/2016 12/16/2016 documented in this encounter Plan of Treatment Not on file documented as of this encounter Visit Diagnoses Not on filedocumented in this encounter Discontinued Medications Medication Sig Discontinue Reason Start Date End Da te HYDROcodone-acetaminophe n (NORCO) 7.5-325 mg per tabletIndications:Pain Take 1 tablet by mouth every 6 (six) hours as needed for pain. Reorder 10/16/2016 11/16/2016 documented as of this encounter Care Teams Rib Knitter Relationship Specialty Start Date End Date Yaya Britt MD PCP - General 07/31/16 documented as of this encounter
--- OUTSIDE RECORDS SUMMARY | 2024-04-20 02:21 | XMS_ITS | Encounter Summary ---
Author Organization [facility] Address [address] [facility] [address] [place] [address] Care Team Providers Care Tow Car Driver Name Role Phone Yaya Britt MD Primary Care Provider Encounter Details Date Type Department Care Team (Late st Contact Info) Description 12/18/[address] 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 120 tablet 12/18/2016 01/15/2017 documented in this encounter Plan of Treatment Not on file documented as of this encounter Visit Diagnoses Not on filedocumented in this encounter Care Teams Tow Car Driver Relationship Specialty Start Date End Date Yaya Britt MD PCP - General 07/31/16 documented as of this encounter
--- OUTSIDE RECORDS SUMMARY | 2024-04-20 02:21 | XMS_ITS | Encounter Summary ---
Author Organization [facility] Address [address] [facility] [address] [place] [address] Care Team Providers Care Staff Rn Name Role Phone Yaya Britt MD Primary Care Provider Encounter Details Date Type Department Care Team (Late st Contact Info) Description 07/22/2017 Orders Only [facility] at [place] [address], [place] [address] Nataly Seymour MD [address] [facility] [address] [place] [address] Social History Tobacco Use Types Packs/Day Years Used Date Smoking Tobacco: Every Day Smokeless Tobacco: Never Alcohol Use Standard Drinks/Week Comments No 0 (1 standard drink = 0.6 oz pur e alcohol) Sex and Gender Information Value Date Recorded Sex Assigned at Not on file 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 Gender Identity Not on file Sexual Orientation Not on file documented as of this encounter Plan of Treatment Not on file documented as of this encounter Procedures Procedure Name Priority Date/Time Associated Diagnosis Comments CBC/DIFF AMBIGUOUS DEFAULT Routine 07/22/2017 9:55 AM CDT TERRELL NAVARRO CMP14 DEFAULT Routine 07/22/2017 9:55 AM CDT COMPREHENSIVE METABOLIC PANEL Routine 07/22/2017 9:55 AM CDT documented in this encounter Results * Terrell navarro CMP14 default (07/22/2017 9:55 AM CDT) Terrell Navarro CMP14 Default Comment [facility] - 01 Comment: A hand-written panel/profile was received from your office. In accordance with the [facility] Amb[facility] Test Code Policy dated October 2002, we have completed your order by using the closest currently or formerly recognized AMA panel. ??We have assigned Comprehensive Metabolic Panel (14), Test Code #817871 to this request. ??If this is not the testing you wished to receive on this specimen, please contact the [facility] Client Inquiry/Technical Services Department to clarify the test order. ??We appreciate your business. 07/22/2017 9:55 AM CDT 07/22/2017 Narrative [facility] - 07/23/2017 7:35 AM CDT Performed at: ??01 - [address] ??[id number] Lapel Padder Blindstitch: Tima Kim PhD, Phone: ??[phone] us Nataly Seymour MD LAB BLOOD ORDERABLES Final Resul t LABCO [facility] - 01 * (ABNORMAL) Comprehensive metabolic panel (07/22/2017 9:55 AM CDT) Glucose 102(H) 65 - 99 mg/dL [facility] - 01 BUN 16 6 - 24 mg/dL [facility] - 01 Creatinine, Serum 0.98 0.76 - 1.27 mg/dL [facility] - 01 eGFR If NonAfricn Am 85 >59 mL/min/1.7 3 [facility] - 01 eGFR If Africn Am 98 >59 mL/min/1.7 3 [facility] - 01 BUN/creat ratio 16 9 - 20 [facility] - 01 Sodium 142 134 - 144 mmol/L [facility] - 01 Potassium, sr 4.3 3.5 - 5.2 mmol/L [facility] - 01 Chloride 104 96 - 106 mmol/L [facility] - 01 CO2 21 18 - 29 mmol/L [facility] - 01 Calcium 9.2 8.7 - 10.2 mg/dL [facility] - 01 Protein, sr 7.2 6.0 - 8.5 g/dL [facility] - 01 Albumin 4.2 3.5 - 5.5 g/dL [facility] - 01 Globulin, Total 3.0 1.5 - 4.5 g/dL [facility] - 01 A/G Ratio 1.4 1.2 - 2.2 [facility] - 01 Bilirubin, Total 0.4 0.0 - 1.2 mg/dL [facility] - 01 Alk phos 80 39 - 117 IU/L [facility] - 01 AST 22 0 - 40 IU/L [facility] - 01 ALT 22 0 - 44 IU/L [facility] - 01 07/22/2017 9:55 AM CDT 07/22/2017 Narrative [facility] - 07/23/2017 7:35 AM CDT Performed at: ??01 - [address] ??[id number] Lapel Padder Blindstitch: Tima Kim PhD, Phone: ??[phone] us Nataly Seymour MD LAB BLOOD ORDERABLES Final Resul t [facility] - 01 * (ABNORMAL) CBC/Diff Ambiguous Default (07/22/2017 9:55 AM CDT) WBC 6.8 3.4 - 10.8 x10E3/uL [facility] - 01 RBC 4.21 4.14 - 5.80 x10E6/uL [facility] - 01 Hgb 14.3 13.0 - 17.7 g/dL [facility] - 01 Hct 41.4 37.5 - 51.0 % [facility] - 01 MCV 98(H) 79 - 97 fL [facility] - 01 MCH 34.0(H) 26.6 - 33.0 pg [facility] - 01 MCHC 34.5 31.5 - 35.7 g/dL [facility] - 01 Rdw 14.3 12.3 - 15.4 % [facility] - 01 Platelets 191 150 - 379 x10E3/uL [facility] - 01 Neutrophils pct 47 Not Estab. % [facility] - 01 Lymphs pct 40 Not Estab. % [facility] - 01 Monocytes pct 8 Not Estab. % [facility] - 01 Eosinophils pct 4 Not Estab. % [facility] - 01 Basophil pct 1 Not Estab. % [facility] - 01 Neutrophil abs 3.2 1.4 - 7.0 x10E3/uL [facility] - 01 Lymphs (Absolute) 2.7 0.7 - 3.1 x10E3/uL [facility] - 01 Monocyte abs 0.5 0.1 - 0.9 x10E3/uL [facility] - 01 Eosinophils, abs 0.3 0.0 - 0.4 x10E3/uL [facility] - 01 Basophils, abs 0.1 0.0 - 0.2 x10E3/uL [facility] - 01 Immature Granulocytes 0 Not Estab. % [facility] - 01 Immature Grans (Abs) 0.0 0.0 - 0.1 x10E3/uL [facility] - 01 Comment: A hand-written panel/profile was received from your office. In accordance with the [facility] Amb[facility] Code Policy dated October 2002, we have assigned CBC with Differential/Platelet, Test Code #301136 to this request. If this is not the testing you wished to receive on this specimen, please contact the [facility] Technical Services Department to clarify the test order. We appreciate your business. 07/22/2017 9:55 AM CDT 07/22/2017 Narrative [facility] - 07/23/2017 7:35 AM CDT Performed at: ??01 - [address] ??[id number] Lapel Padder Blindstitch: Tima Kim PhD, Phone: ??[phone] us Nataly Seymour MD LAB BLOOD ORDERABLES Final Resul t [facility] - 01 documented in this encounter Visit Diagnoses Not on filedocumented in this encounter Care Teams Staff Rn Relationship Specialty Start Date End Date Yaya Britt MD PCP - General 07/31/16 documented as of this encounter
--- OUTSIDE RECORDS SUMMARY | 2024-04-20 02:21 | XMS_ITS | Encounter Summary ---
Author Organization [facility] Healthcare Address [address] [place] [address] Care Team Providers Care Airfreight Operations Agent Name Role Phone Yaya Britt MD Primary Care Provider Reason for Referral * Cardiology (Routine) - Closed Specialty Diagnoses / Procedures Referred By Contac t Referred To Contact Diagnoses Heart failure with reduced ejection fraction (CMS/HCC) (HCC) Procedures Transthoracic Echo (TTE) Complete W Doppler/CF Brittaney Obregon MD [address] [address] Phone: tel: fax: [facility] Medical Group Referral ID Status Reason Start Date Expiration Date Visits Re quested Visits Authorized [id number] Closed 08/06/2023 09/04/2024 1 1 Reason for Visit * Reason Comments Hospital Follow Up [facility] -07/03/23 Dx: Rapid heart rate. Wearing Zoll LifeVest. Atrial Fibrillation Cardiomyopathy Requesting Lipid from PCP Encounter Details Date Type Department Care Team (Late st Contact Info) Description 08/06/2023 3:15 PM CDT Office Visit [facility] Medical Group Cardiology [address] [place] [address] Brittaney Obregon MD [address] [address] Heart failure with reduced ejection fraction (CMS/HCC) (HCC) (Primary Dx); Atrial fibrillation, unspecified type (HCC) Social History Tobacco Use Types Packs/Day Years Used Date Smoking Tobacco: Former Cigarettes Smokeless Tobacco: Never Tobacco Cessation:Counseling Given: Not Answered Alcohol Use Standard Drinks/Week Comments No 0 (1 standard drink = 0.6 oz pur e alcohol) Sex and Gender Information Value Date Recorded Sex Assigned at Not on file 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 Gender Identity Not on file Sexual Orientation Not on file documented as of this encounter Last Filed Vital Signs Vital Sign Reading Time Taken Comments Blood Pressure 150/60 08/06/2023 3:19 PM CDT Pulse 67 08/06/2023 3:19 PM CDT Temperature - - Respiratory Rate - - Oxygen Saturation 98% 08/06/2023 3:19 PM CDT Inhaled Oxygen Concentration - - Weight 97.7 kg (215 lb 6.4 oz) 08/06/2023 3:19 P M CDT Height 175.3 cm (5' 9 ) 08/06/2023 3:19 PM CDT Body Mass Index 31.81 08/06/2023 3:19 PM CDT documented in this encounter Progress Notes * Brittaney Obregon MD - 08/06/2023 3:15 PM CDT CARDIOLOGY CLINIC NOTE CHIEF COMPLAINT / REASON FOR CONSULT: Hospital follow up HISTORY: Taiwo Tapia is a 63 y.o. male who presents for a hospital follow up visit. Patient was admitted to [facility] in July 2023 for atrial fibrillation with RVR, congestive heartfailure, Influenza A. Patient is a 63 year old male with rheumatoid arthritis who was sent from hisP's office to [place] ER for rapid heart rate, found to be in atrial fibrillation with RVR. Patient had flu-like symptoms a few days prior to this. He was started on Diltiazem drip, and then subsequently transitioned to Metoprolol. He tested positive for Influenza A. Noted to have significant pancytopenia with WBC of 3.6, Hgb 9.6, platelet count of 67. Troponins of 0.085, 0.069, 0.058. NT pro BNP of 2820. Echocardiogram done 06/29/2023 showed severely enlarged LV size, LVEF moderately reducedat 30-35%, severely enlarged left atrium, mild MR. Patient was started on Amiodarone drip due to AFIB with RVR and soft blood pressures. He converted to sinus rhythm on Amiodarone. [id number] of 1 for his cardiomyopathy, therefore, anticoagulation not indicated. He was shifted to PO Amiodarone. He was started on heart failure GDMT with Toprol, Entresto, Spironolactone, Jardiance. Life Vest was placed. Plan was for eventual ischemic evaluation once he recovers from acute issues and his pancytopenia was addressed. Since hospital discharge, he has overall been doing okay. Does get tired after some exertion. No chest pain, shortness of breath. He cannot remember the names of the medications that he is taking, but states he is still taking whatever he was discharged on. Tolerating those meds okay. REVIEW OF SYSTEMS: GENERAL: As per HPI CVS: As per HPI PHYSICAL EXAMINATION: BP 150/60 (BP Location: Right arm, Patient Position: Sitting) Pulse 67 Ht 175.3 cm (5' 9 ) Wt97.7 kg (215 lb 6.4 oz) SpO2 98% BMI 31.81 kg/m?? GENERAL: Alert, in no distress HEAD: Normocephalic and atraumatic EYES: Extra ocular movement intact ENT: Unremarkable NECK: Supple with midline trachea CHEST: Non-labored respirations CARDIAC: Regular rate and rhythm, S1 S2 normal, no murmur SKIN: Warm and dry NEURO: Alert and oriented x 3 ASSESSMENT/PLAN: Heart failure with reduced ejection fraction Echocardiogram done 06/29/2023 showed severely enlarged LV size, LVEF moderately reduced at 30-35%, severely enlarged left atrium, mild MR. This was a new diagnosis of heart failure for the patient. Possibly tachycardia mediated cardiomyopathy given AF with RVR vs viral cardiomyopathy given Influenza A vs ischemic heart disease. Continue Toprol Continue Entresto Continue Spironolactone Continue Jardiance Continue Life Vest for now. Will obtain TTE to re-evaluate LVEF. If LVEF is still reduced, will plan for ischemic evaluation. Will need to ensure his platelet counts and hemoglobin are stable prior to any invasive ischemic evaluation. Atrial fibrillation TSH level was normal. Converted to sinus rhythm on Amiodarone. Continue Toprol, Amiodarone. [id number] of 1 for his cardiomyopathy, therefore, anticoagulation not indicated. The above information was discussed at length with Taiwo Tapia who was also given ample opportunity to ask questions and verbalized understanding the plan. The appropriate follow up has beenarranged. I have advised the patient to contact me if any questions/problems arise prior to the follow up. Brittaney Obregon M.D., [facility] Interventional Cardiology documented in this encounter Plan of Treatment Not on file documented as of this encounter Results * TRANSTHORACIC ECHO (TTE) COMPLETE W DOPPLER/CF W CONTRAST (08/26/2023 4:20 PM CDT) Anatomical Region Laterality Modality Ultrasound 08/26/2023 3:09 PM CDT Narrative 08/26/2023 4:22 PM CDT [facility] Medical Group Cardiology [address] [facility] [place] [address], [place] [address] [address] [facility] [address] [place] [address], [place] [address] P:[phone] P:[phone] Echocardiographic Report Patient Name: TAIWO TAPIA J : 1960 Study Date: 08/26/2023 3:09:15 PM Gender: M Tech: Location: [facility] Provider: BRITTANEY OBREGON ?Height(Cm): 175 BSA: 2.18 Weight(Kg): 97.5 Heart Rate: 60 BP: 118 / 58 Quality: Good Order Provider: BRITTANEY OBREGON PROCEDURES: Echocardiographic Report: Transthoracic echocardiogram with complete 2D, M-Mode, color Doppler examination and Definity contrast. INDICATIONS: HFrEF. Measurements: 2D/M Mode ?Doppler Measurement ?Value ?Normal Range ?Measurement ?Value ?Normal Range LVIDd 2D ? 5.98 ? [ 4.20 - 5.80 ] cm ?ZACHARIAH Vmax ? 2.37 ? [ 2.00 - 4.00 ] cm2 LVIDs 2D ? 4.49 ? [ 2.50 - 4.00 ] cm ?AV Mean PG ? 4 ?mmHg LVPWd 2D ? 1.03 ? [ 0.60 - 1.00 ] cm ?AV Peak Angel ?1.40 ? [ 1.00 - 1.70 ] m/s IVSd 2D ?1.03 ? [ 0.60 - 1.00 ] cm ?AV Peak PG ? 8 ?mmHg LA Volume Index ?34 ? [ 16 - 34 ] cc/m2 ? AV VTI ? 30.54 ?cm LVOT Diam ?2.07 ?[ 1.70 - 2.10 ] cm LVOT Peak Angel ?0.99 ?[ 0.70 - 1.10 ] m/s LVOT VTI ? 21.33 ? cm TR Peak Angel ?2.51 ?[ 1.00 - 2.80 ] m/s TR Peak PG ? 25 ?mmHg Measurement ?Value ?Normal Range ?Measurement ?Value ?Normal Range 2D/M Mode ?Doppler - FINDINGS: Interpretation Site: Exam was interpreted at [facility]. Left Ventricle: Definity contrast agent used to visually enhance endocardial wall motion and contractility. Mild enlargement of left ventricle cavity. Mild global left ventricular systolic dysfunction. Normal left ventricular diastolic function. Ejection fraction is visually estimated at 40 %. Ejection fraction is measured at 48 %. Global Longitudinal Strain is -17 %. Right Ventricle: Normal right ventricular size. Left Atrium: There is mild enlargement of left atrium. Right Atrium: The right atrium is normal in size. Atrial Septum: Normal atrial septum. Mitral Valve: Mild mitral valve prolapse involving the posterior mitral valve. Mild mitral valve regurgitation. The regurgitation jet is eccentrically directed which may underestimate the severity of mitral regurgitation. Aortic Valve: Normal appearance of the aortic valve. Tricuspid Valve: Normal appearance of the tricuspid valve. Pulmonic Valve: Pulmonic valve not well visualized. Pericardium: Normal pericardium with no significant pericardial effusion. Aorta: Normal aortic root. IVC: Normal size and normal respiratory collapse consistent with normal right atrial pressure (<5 mmHg). Pulmonary Artery: Normal pulmonary artery size. CONCLUSIONS: Definity contrast agent used to visually enhance endocardial wall motion and contractility. Mild enlargement of left ventricle cavity. Mild global left ventricular systolic dysfunction. Normal left ventricular diastolic function. Ejection fraction is visually estimated at 40 %. Ejection fraction is measured at 48 %. Global Longitudinal Strain is -17 %. There is mild enlargement of left atrium. Mild mitral valve prolapse involving the posterior mitral valve. Mild mitral valve regurgitation. The regurgitation jet is eccentrically directed which may underestimate the severity of mitral regurgitation. Electronically Signed By: Eduardo Nielson MD, [facility] 2023-08-26 16:21:58 CDT Procedure Note Eduardo Nielson MD - 08/26/2023 [facility] Medical Group Cardiology [address] [facility] [place] [address], [place] [address] [address] [facility] [address], [place] [address] P:[phone] P:[phone] Echocardiographic Report Patient Name: TAIWO TAPIA J : 1960 Study Date: 08/26/2023 3:09:15 PM Gender: M Tech: Location: [facility] Provider: BRITTANEY OBREGON Height(Cm): 175 BSA: 2.18 Weight(Kg): 97.5 Heart Rate: 60 BP: 118 / 58 Quality: Good Order Provider: BRITTANEY OBREGON PROCEDURES: Echocardiographic Report: Transthoracic echocardiogram with complete 2D, M-Mode, color Dopplerexamination and Definity contrast. INDICATIONS: HFrEF. Measurements: 2D/M ModeDoppler Measurement Value Normal Range MeasurementValue Normal Range LVIDd 2D 5.98 [ 4.20 - 5.80 ] cm ZACHARIAH Vmax2.37 [ 2.00 - 4.00 ] cm2 LVIDs 2D 4.49 [ 2.50 - 4.00 ] cm AV Mean PG4 mmHg LVPWd 2D 1.03 [ 0.60 - 1.00 ] cm AV Peak Vel1.40 [ 1.00 - 1.70 ] m/s IVSd 2D 1.03 [ 0.60 - 1.00 ] cm AV Peak PG8 mmHg LA Volume Index 34 [ 16 - 34 ] cc/m2 AV VTI30.54 cm LVOT Diam 2.07 [ 1.70 - 2.10 ] cm LVOT Peak Angel 0.99 [ 0.70 - 1.10 ] m/s LVOT VTI 21.33 cm TR Peak Angel 2.51 [ 1.00 - 2.80 ] m/s TR Peak PG 25 mmHg Measurement Value Normal Range MeasurementValue Normal Range 2D/M ModeDoppler - FINDINGS: Interpretation Site: Exam was interpreted at [facility]. Left Ventricle: Definity contrast agent used to visually enhance endocardial wall motionand contractility. Mild enlargement of left ventricle cavity. Mild global leftventricular systolic dysfunction. Normal left ventricular diastolic function. Ejectionfraction is visually estimated at 40 %. Ejection fraction is measured at 48 %. GlobalLongitudinal Strain is -17 %. Right Ventricle: Normal right ventricular size. Left Atrium: There is mild enlargement of left atrium. Right Atrium: The right atrium is normal in size. Atrial Septum: Normal atrial septum. Mitral Valve: Mild mitral valve prolapse involving the posterior mitral valve. Mildmitral valve regurgitation. The regurgitation jet is eccentrically directed which mayunderestimate the severity of mitral regurgitation. Aortic Valve: Normal appearance of the aortic valve. Tricuspid Valve: Normal appearance of the tricuspid valve. Pulmonic Valve: Pulmonic valve not well visualized. Pericardium: Normal pericardium with no significant pericardial effusion. Aorta: Normal aortic root. IVC: Normal size and normal respiratory collapse consistent with normal rightatrial pressure (<5 mmHg). Pulmonary Artery: Normal pulmonary artery size. CONCLUSIONS: Definity contrast agent used to visually enhance endocardial wall motionand contractility. Mild enlargement of left ventricle cavity. Mild global leftventricular systolic dysfunction. Normal left ventricular diastolic function. Ejectionfraction is visually estimated at 40 %. Ejection fraction is measured at 48 %. GlobalLongitudinal Strain is -17 %. There is mild enlargement of left atrium. Mild mitral valve prolapse involving the posterior mitral valve. Mildmitral valve regurgitation. The regurgitation jet is eccentrically directed which mayunderestimate the severity of mitral regurgitation. Electronically Signed By: Eduardo Nielson MD, [facility] 2023-08-26 16:21:58 CDT [facility] Obregon MD CV ECHO PROCEDURES Karina l Result documented in this encounter Visit Diagnoses Diagnosis Heart failure with reduced ejection fraction (CMS/HCC) (HCC)- Primary Atrial fibrillation, unspecified type (HCC) Heart failure with reduced ejection fraction (CMS/HCC) (HCC) documented in this encounter Historical Medications * This list may reflect changes made after this encounter. levothyroxine (SYNTHROID) 88 mcg tablet Take 1 tablet (88 mcg total) by mouth licensing director before breakfast amoxicillin-clav ulanate (AUGMENTIN) 875-125 mg per tablet Take 1 tablet by mouth every 12 (twelve) hours 07/03/2023 Jardiance 10 mg tablet Take 1 tablet (10 mg total) by mouth daily 07/28/2023 4 amiodarone (PACERONE) 200 mg tablet Take 1 tablet (200 mg total) by mouth daily 07/30/2023 4 spironolactone (ALDACTONE) 25 mg tablet Take 1 tablet (25 mg total) by mouth daily 08/02/2023 4 metoprolol XL (TOPROL-XL) 50 mg extended release tablet Take 1 tablet (50 mg total) by mouth daily 08/02/2023 4 Entresto 24-26 mg tablet Take 1 tablet by mouth 2 (two) times a day 08/01/2023 4 added in this encounter Care Teams Airfreight Operations Agent Relationship Specialty Start Date End Date Yaya Britt MD PCP - General 07/31/16 documented as of this encounter
--- OUTSIDE RECORDS SUMMARY | 2024-04-20 02:21 | XMS_ITS | Encounter Summary ---
Author Organization [facility] Medical Group Address [address] [address] Care Team Providers Care Statistical Reporting Analyst Name Role Phone Yaya Britt MD Primary Care Provider Reason for Visit * Reason Onset Date Comments Du..pt wants meds called in 11/13/2016 Encounter Details Date Type Department Care Team (Late st Contact Info) Description 11/13/2016 Telephone [facility] Medical Group at [address] [address] Yaya Britt MD [address] [place] [address] Du..pt wants meds called in Social History Tobacco Use Types Packs/Day Years Used Date Smoking Tobacco: Every Day Alcohol Use Standard Drinks/Week Comments No 0 (1 standard drink = 0.6 oz pur e alcohol) Sex and Gender Information Value Date Recorded Sex Assigned at Not on file 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 Gender Identity Not on file Sexual Orientation Not on file documented as of this encounter Miscellaneous Notes * Telephone Encounter - Foster Lara MA - 11/13/2016 10:57 AM CDT Pt informed * Telephone Encounter - Nataly Seymour MD - 11/13/2016 10:45 AM CDT E-prescribed medrol pack, let him know * Telephone Encounter - Sylwia Mckee - 11/13/2016 9:13 AM CDT Symptom Based Call Chief Complaint: Lt knee swollen, painful Duration: Started yesterday Call back #: [phone] Appointment Details: Wants anti inflammatory or steroids called into pharmacy [facility] At [phone] Additional Comments: Can barely put any wt on it. Having trouble walking documented in this encounter Plan of Treatment Not on file documented as of this encounter Visit Diagnoses Not on filedocumented in this encounter Care Teams Statistical Reporting Analyst Relationship Specialty Start Date End Date Yaya Britt MD PCP - General 07/31/16 documented as of this encounter
--- OUTSIDE RECORDS SUMMARY | 2024-04-20 02:21 | XMS_ITS | Encounter Summary ---
Author Organization [facility] Medical Group Address [address] [facility] [address] [place] [address] Care Team Providers Care Activities Manager Name Role Phone Yaya Britt MD Primary Care Provider [phone] Encounter Details Date Type Department Care Team (Late st Contact Info) Description 04/28/2017 2:00 PM BROKERAGE OFFICE MANAGER Office Visit [facility] Medical Group at [address] [address] Nataly Seymour MD [address] [facility] [address] [place] [address] Rheumatoid arthritis of multiple sites without rheumatoid factor (CMS/HCC) (Primary Dx); High risk medication use; Anemia, unspecified type Social History Tobacco Use Types Packs/Day Years Used Date Smoking Tobacco: Every Day Smokeless Tobacco: Never Alcohol Use Standard Drinks/Week Comments No 0 (1 standard drink = 0.6 oz pur e alcohol) Sex and Gender Information Value Date Recorded Sex Assigned at Not on file Legal Sex Male 2:01 AM BROKERAGE OFFICE MANAGER Gender Identity Not on file Sexual Orientation Not on file documented as of this encounter Last Filed Vital Signs Vital Sign Reading Time Taken Comments Blood Pressure 122/78 04/28/2017 2:01 PM BROKERAGE OFFICE MANAGER Pulse 76 04/28/2017 2:01 PM BROKERAGE OFFICE MANAGER Temperature 36.8 ??C (98.2 ??F) 04/28/2017 2:01 PM CS T Respiratory Rate 18 04/28/2017 2:01 PM BROKERAGE OFFICE MANAGER Oxygen Saturation 98% 04/28/2017 2:01 PM BROKERAGE OFFICE MANAGER Inhaled Oxygen Concentration - - Weight 95.3 kg (210 lb 3.2 oz) 04/28/2017 2:01 P M BROKERAGE OFFICE MANAGER Height 172.7 cm (5' 8 ) 04/28/2017 2:01 PM BROKERAGE OFFICE MANAGER Body Mass Index 31.96 04/28/2017 2:01 PM BROKERAGE OFFICE MANAGER documented in this encounter Ordered Prescriptions Prescription Sig Dispense Quantity Refills Last Filled Start Date End Date HYDROcodone-acetam inophen (NORCO) 7.5-325 mg per tabletIndications: Pain Take 1 tablet by mouth every 6 (six) hours as needed for pain Earliest Fill Date: 05/17/17. 120 tablet 2017 8 methotrexate 2.5 mg tablet Take 8 tablets (20 mg total) by mouth once a week. 40 tablet 2 04/28/2017 8 documented in this encounter Progress Notes * Nataly Seymour MD - 04/28/2017 2:00 PM CST [facility] Medical Group at [facility]- Rheumatology [address] [place] [address] Subjective/Objective Patient ID: Taiwo Palacios is a 56 y.o. male. Chief Complaint RA HPI on MTX 20mg/wk and humira, helping, joint pain better, left knee hurts and swells sometimes, R knee and ankles bother him sometimes, am stiffness: 1 hour, does not want injection. Right shoulder bother him sometimes, hurt this shoulder at work a year ago. Failed enbrel HOME MEDICATIONS : calcium carbonate (CALCIUM 600) [...] tablet HYDROcodone-acetaminophen (NORCO) 7.5-325 mg per tablet No Known Allergies Review of Systems Constitution: Negative for fever, malaise/fatigue and weight loss. Skin: Negative for rash. Musculoskeletal: Positive for joint pain and joint swelling. Gastrointestinal: Negative for abdominal pain. Vitals: 04/28/17 1401 BP: 122/78 Pulse: 76 Resp: 18 Temp: 36.8 ??C (98.2 ??F) SpO2: 98% Physical Exam Constitutional: He is oriented to person, place, and time. He appears well- developed and well-nourished. No distress. HENT: Head: Normocephalic. Nose: Nose normal. Eyes: Conjunctivae are normal. Pulmonary/Chest: Effort normal. Musculoskeletal: Left knee tender and mildly swollen, right shoulder tender anteriorly, +pain with ROM Neurological: He is alert and oriented to person, place, and time. Skin: No rash noted. Psychiatric: He has a normal mood and affect. LABS Lab Results Component Value Date HGB 13.7 (L) 02/17/2016 HCT 40.1 02/17/2016 MCV 96.6 (H) 02/17/2016 Chemistry Component Value Date/Time SODIUM 137 02/17/2016 0550 POTASSIUM 4.0 02/17/2016 0550 CHLORIDE 106 02/17/2016 0550 CO2 23 02/17/2016 0550 BUNSER 15 02/17/2016 0550 CREATININE 0.89 02/17/2016 0550 GLUCOSE 87 02/17/2016 0550 Component Value Date/Time CALCIUM 9.2 02/17/2016 0550 ALKPHOS 85 02/17/2016 0550 AST 19 02/17/2016 0550 ALT 14 02/17/2016 0550 BILITOT 0.38 02/17/2016 0550 Assessment/Plan Diagnoses and all orders for this visit: Rheumatoid arthritis of multiple sites without rheumatoid factor (CMS/HCC) (Primary) Mildly symptomatic, continue MTX and humira, follow up in 3 to 4 months. High risk medication use On MTX and humira, order labs to monitor toxicity - CBC with auto differential; Future - Comprehensive metabolic panel; Future Anemia, unspecified type Repeat CBC Other orders - methotrexate 2.5 mg tablet; Take 8 tablets (20 mg total) by mouth once a week. - HYDROcodone-acetaminophen (NORCO) 7.5-325 mg per tablet; Take 1 tablet by mouth every 6 (six) hours as needed for pain Earliest Fill Date: 05/17/17. Nataly Seymour MD ERAGE OFFICE MANAGER documented in this encounter Plan of Treatment Not on file documented as of this encounter Visit Diagnoses Diagnosis Rheumatoid arthritis of multiple sites without rheumatoid factor (CMS/HCC) (HCC)- Primary High risk medication use Anemia, unspecified type documented in this encounter Discontinued Medications Medication Sig Discontinue Reason Start Date End Da te HYDROcodone-acetaminoph en (NORCO) 7.5-325 mg per tabletIndications:Pain Take 1 tablet by mouth every 6 (six) hours as needed for pain Earliest Fill Date: 04/15/17. Reorder 04/15/2017 04/28/2017 documented as of this encounter Care Teams Activities Manager Relationship Specialty Start Date End Date Yaya Britt MD PCP - General 07/31/16 documented as of this encounter
--- OUTSIDE RECORDS SUMMARY | 2024-04-20 02:21 | XMS_ITS | Encounter Summary ---
Author Organization [facility] Address [address] [place] [address] Care Team Providers Care Pick Pulling Machine Operator Name Role Phone Yaya Britt MD Primary Care Provider [phone] Reason for Visit * Cardiology (Routine) - Closed Specialty Diagnoses / Procedures Referred By Contac t Referred To Contact Diagnoses Heart failure with reduced ejection fraction (CMS/HCC) (HCC) Procedures Transthoracic Echo (TTE) Complete W Doppler/CF Brittaney Obregon MD [address] [address] Phone: tel: fax: [facility] Referral ID Status Reason Start Date Expiration Date Visits Re quested Visits Authorized [id number] Closed 08/06/2023 09/04/2024 1 1 Encounter Details Date Type Department Care Team (Latest Contact Info) Description 08/26/2023 3:00 PM CDT Ancillary Procedure [facility] Cardiology [address] [facility] [address] [place] [address] Heart failure with reduced ejection fraction (CMS/HCC) (HCC) Social History Tobacco Use Types Packs/Day Years Used Date Smoking Tobacco: Former Cigarettes Smokeless Tobacco: Never Alcohol Use Standard Drinks/Week Comments No 0 (1 standard drink = 0.6 oz pur e alcohol) Sex and Gender Information Value Date Recorded Sex Assigned at Not on file Legal Sex Male 2:01 AM VALUE ANALYST Gender Identity Not on file Sexual Orientation Not on file documented as of this encounter Last Filed Vital Signs Vital Sign Reading Time Taken Comments Blood Pressure 118/58 08/26/2023 4:18 PM CDT Pulse - - Temperature - - Respiratory Rate - - Oxygen Saturation - - Inhaled Oxygen Concentration - - Weight - - Height - - Body Mass Index - - documented in this encounter Plan of Treatment Not on file documented as of this encounter Procedures Procedure Name Priority Date/Time Associated Diagnosis Comments TRANSTHORACIC ECHO (TTE) COMPLETE W DOPPLER/CF W CONTRAST Routine 08/26/2023 4:20 PM CDT Heart failure with reduced ejection fraction (CMS/HCC) (HCC) documented in this encounter Results * TRANSTHORACIC ECHO (TTE) COMPLETE W DOPPLER/CF W CONTRAST (08/26/2023 4:20 PM CDT) Anatomical Region Laterality Modality Ultrasound 08/26/2023 3:09 PM CDT Narrative 08/26/2023 4:22 PM CDT [facility] Cardiology [address] [facility] [address], [place] [address] [address] [facility] [address], [place] [address] P:[phone] P:[phone] Echocardiographic Report Patient Name: TAIWO TAPIA J : 1960 Study Date: 08/26/2023 3:09:15 PM Gender: M Tech: Location: [facility] Provider: BRITTANEY OBREGON ?Height(Cm): 175 BSA: 2.18 [...] FINDINGS: Interpretation Site: Exam was interpreted at [facility]. Left Ventricle: Definity contrast agent used to [...] regurgitation. Electronically Signed By: Eduardo Nielson MD, [facility] 2023-08-26 16:21:58 CDT Procedure Note Eduardo Nielson MD - 08/26/2023 [facility] Cardiology [address] [facility] [address] [place] [address] [address] [facility] [address], [place] [address] P:[phone] P:[phone] Echocardiographic Report Patient Name: TAIWO TAPIA J : 1960 Study Date: 08/26/2023 3:09:15 PM Gender: M Tech: Location: [facility] Provider: BRITTANEY OBREGON Height(Cm): 175 BSA: 2.18 [...] FINDINGS: Interpretation Site: Exam was interpreted at [facility]. Left Ventricle: Definity contrast agent used to [...] regurgitation. Electronically Signed By: Eduardo Nielson MD, [facility] 2023-08-26 16:21:58 CDT [facility] Raúl Obregon MD CV ECHO PROCEDURES Karina pendleton Result documented in this encounter Visit Diagnoses Diagnosis Heart failure with reduced ejection fraction (CMS/HCC) (HCC) documented in this encounter Administered Medications Inactive Administered Medications - up to 3 most recent administrations Medication Order MAR Action Action Date Dose Rate Site perflutren lipid (DEFINITY) 1.5 mL in sodium chloride 0.9% 10 mL syringe 1-10 mL, intravenous, Once in imaging, contrast, Starting on Patricia 08/26/23 at 1619, For 1 dose, Intra-Procedure (CV) Contrast Given 08/27/2023 8:15 AM CDT 1 mL documented in this encounter Orders Medications Ordered That Steve ht Not Have Been Administered Count Last Ordered Date First Ordered Date perflutren lipid (DEFINITY) 1.5 mL in sodium chloride 0.9% 10 mL syringe 1 08/26/2023 documented in this encounter Care Teams Pick Pulling Machine Operator Relationship Specialty Start Date End Date Yaya Britt MD PCP - General 07/31/16 documented as of this encounter
--- OUTSIDE RECORDS SUMMARY | 2024-04-20 02:21 | XMS_ITS | Encounter Summary ---
Author Organization [facility] Address [address] [facility] [address] [place] [address] Care Team Providers Care Websphere Administrator Name Role Phone Yaya Britt MD Primary Care Provider Encounter Details Date Type Department Care Team (Late st Contact Info) Description 11/13/2016 Orders Only [facility] at [place] [address], [place] [address] Nataly Seymour MD [address] [facility] [address] [place] [address] Social History Tobacco Use Types Packs/Day Years Used Date Smoking Tobacco: Every Day Alcohol Use Standard Drinks/Week Comments No 0 (1 standard drink = 0.6 oz pur e alcohol) Sex and Gender Information Value Date Recorded Sex Assigned at Not on file Legal Sex Male 2:01 AM MARITIME GUARD Gender Identity Not on file Sexual Orientation Not on file documented as of this encounter Ordered Prescriptions Prescription Sig Dispense Quantity Refills Last Filled Start Date End Date methylPREDNISolone (MEDROL DOSEPACK) 4 mg tablet follow package directions 21 tablet 11/13/2016 7 documented in this encounter Plan of Treatment Not on file documented as of this encounter Visit Diagnoses Not on filedocumented in this encounter Care Teams Websphere Administrator Relationship Specialty Start Date End Date Yaya Britt MD PCP - General 07/31/16 documented as of this encounter
--- OUTSIDE RECORDS SUMMARY | 2024-04-20 02:21 | XMS_ITS | Encounter Summary ---
Author Organization [facility] Address [address] [facility] [address] [place] [address] Care Team Providers Care Pcb Designer Name Role Phone Yaya Britt MD Primary Care Provider Encounter Details Date Type Department Care Team (Late st Contact Info) Description 02/15/2017 Orders Only [facility] at [place] [address] [address], [place] [address] Nataly Seymour MD [address] [facility] [address] [place] [address] Social History Tobacco Use Types Packs/Day Years Used Date Smoking Tobacco: Every Day Smokeless Tobacco: Never Alcohol Use Standard Drinks/Week Comments No 0 (1 standard drink = 0.6 oz pur e alcohol) Sex and Gender Information Value Date Recorded Sex Assigned at Not on file Legal Sex Male 2:01 AM CONTACT LENS POLISHER Gender Identity Not on file Sexual Orientation Not on file documented as of this encounter Ordered Prescriptions Prescription Sig Dispense Quantity Refills Last Filled Start Date End Date HYDROcodone-acetam inophen (NORCO) 7.5-325 mg per tabletIndications: Pain Take 1 tablet by mouth every 6 (six) hours as needed for pain. 120 tablet 02/15/2017 03/18/2017 documented in this encounter Plan of Treatment Not on file documented as of this encounter Visit Diagnoses Not on filedocumented in this encounter Discontinued Medications Medication Sig Discontinue Reason Start Date End Da te HYDROcodone-acetaminophe n (NORCO) 7.5-325 mg per tabletIndications:Pain Take 1 tablet by mouth every 6 (six) hours as needed for pain. Reorder 01/15/2017 02/15/2017 documented as of this encounter Care Teams Pcb Designer Relationship Specialty Start Date End Date Yaya Britt MD PCP - General 07/31/16 documented as of this encounter
--- OUTSIDE RECORDS SUMMARY | 2024-04-20 02:21 | XMS_ITS | Encounter Summary ---
Author Organization [facility] Address [address] [facility] [address] [place] [address] Care Team Providers Care Electrical Logger Name Role Phone Yaya Britt MD Primary Care Provider [phone] Encounter Details Date Type Department Care Team (Late st Contact Info) Description 06/16/2017 Orders Only [facility] at [place] [address], [place] [address] Nataly Seymour MD [address] [facility] [address] [place] [address] Social History Tobacco Use Types Packs/Day Years Used Date Smoking Tobacco: Every Day Smokeless Tobacco: Never Alcohol Use Standard Drinks/Week Comments No 0 (1 standard drink = 0.6 oz pur e alcohol) Sex and Gender Information Value Date Recorded Sex Assigned at Not on file Legal Sex Male 2:01 AM DIE MAKER ELECTRONIC Gender Identity Not on file Sexual Orientation Not on file documented as of this encounter Ordered Prescriptions Prescription Sig Dispense Quantity Refills Last Filled Start Date End Date HYDROcodone-acetam inophen (NORCO) 7.5-325 mg per tabletIndications: Pain Take 1 tablet by mouth every 6 (six) hours as needed for pain. 120 tablet 06/16/2017 07/14/2017 documented in this encounter Plan of Treatment Not on file documented as of this encounter Visit Diagnoses Not on filedocumented in this encounter Discontinued Medications Medication Sig Discontinue Reason Start Date End Da te HYDROcodone-acetaminoph en (NORCO) 7.5-325 mg per tabletIndications:Pain Take 1 tablet by mouth every 6 (six) hours as needed for pain Earliest Fill Date: 05/17/17. Reorder 2017 06/16/2017 documented as of this encounter Care Teams Electrical Logger Relationship Specialty Start Date End Date Yaya Britt MD PCP - General 07/31/16 documented as of this encounter
--- OUTSIDE RECORDS SUMMARY | 2024-04-20 02:21 | XMS_ITS | Encounter Summary ---
Author Organization [facility] Address [address] [facility] [address] [place] [address] Care Team Providers Care Dough Scaler And Mixer Name Role Phone Yaya Britt MD Primary Care Provider Encounter Details Date Type Department Care Team (Late st Contact Info) Description 10/16/2016 Orders Only [facility] at [place], [place] [address] Nataly Seymour MD [address] [facility] [address] [place] [address] Social History Tobacco Use Types Packs/Day Years Used Date Smoking Tobacco: Every Day Alcohol Use Standard Drinks/Week Comments No 0 (1 standard drink = 0.6 oz pur e alcohol) Sex and Gender Information Value Date Recorded Sex Assigned at Not on file Legal Sex Male 2:01 AM WELLFIELD TECHNICIAN Gender Identity Not on file Sexual Orientation Not on file documented as of this encounter Ordered Prescriptions Prescription Sig Dispense Quantity Refills Last Filled Start Date End Date HYDROcodone-acetam inophen (NORCO) 7.5-325 mg per tabletIndications: Pain Take 1 tablet by mouth every 6 (six) hours as needed for pain. 120 tablet 10/16/2016 11/16/2016 documented in this encounter Plan of Treatment Not on file documented as of this encounter Visit Diagnoses Not on filedocumented in this encounter Care Teams Dough Scaler And Mixer Relationship Specialty Start Date End Date Yaya Britt MD PCP - General 07/31/16 documented as of this encounter
--- OUTSIDE RECORDS SUMMARY | 2024-04-20 02:21 | XMS_ITS | Encounter Summary ---
Author Organization [facility] Address [address] [facility] [address] [place] [address] Care Team Providers Care Flavoring Oil Filterer Name Role Phone Yaya Britt MD Primary Care Provider Reason for Visit * Reason Onset Date Comments DU - med question 01/29/2017 Encounter Details Date Type Department Care Team (Late st Contact Info) Description 01/29/2017 Telephone [facility] at [address] [address] Nataly Seymour MD [address] [facility] [address] [place], [place] [id number] DU - med question Social History Tobacco Use Types Packs/Day Years Used Date Smoking Tobacco: Every Day Smokeless Tobacco: Never Alcohol Use Standard Drinks/Week Comments No 0 (1 standard drink = 0.6 oz pur e alcohol) Sex and Gender Information Value Date Recorded Sex Assigned at Not on file Legal Sex Male 2:01 AM REPAIR SERVICE DISPATCHER Gender Identity Not on file Sexual Orientation Not on file documented as of this encounter Miscellaneous Notes * Telephone Encounter - Arpita Herrera - 01/29/2017 12:55 PM CDT Pt aware * Telephone Encounter - Nataly Seymour MD - 01/29/2017 12:25 PM CDT E-prescribed steroid pack, let him know * Telephone Encounter - Bo Yessenia - 01/29/2017 12:18 PM CDT Symptom Based Call Chief Complaint: Right ankle swelling Duration: 1 week Additional Comments: Patient requesting steroid - please call into pharmacy on file documented in this encounter Plan of Treatment Not on file documented as of this encounter Visit Diagnoses Not on filedocumented in this encounter Care Teams Flavoring Oil Filterer Relationship Specialty Start Date End Date Yaya Britt MD PCP - General 07/31/16 documented as of this encounter
--- OUTSIDE RECORDS SUMMARY | 2024-04-20 03:12 | XMS_ITS | Clinical Summary ---
Author Organization [facility] Address [address] [facility] [place] [address] Care Team Providers Care Role Player Name Role Phone Unavailable Primary Care Provider Unavailabl e Source Comments [facility],non-owned Affiliates and Associated Physician Practices is amultiple site organization consisting of ambulatory clinics and hospital sitesin [place], [place], [place] and [place]. This disclosure is being madepursuant to the Care Everywhere program and may not contain all information available regarding this patient. Last updated 18.[facility] Encounters Date Type Department Care Team Description 02/21/2024 Lab Requisition [facility] - Pathology Lab [address] [place] [address] Ignacio Hernández MD Illness, unspecified 02/18/2024 Lab Requisition [facility] - Pathology Lab [address] [place] [address] Ignacio Hernández MD Other pancytopenia (HCC) from [...] AM CDT) Case Report Flow Cytometry ?Case: [id number] ? Authorizing Provider: ??Ignacio Hernández ? Collected: ? 02/18/2024 10:55 AM ? MD Gerber ? Ordering Location: ? [facility] - ??Received: ?02/18/2024 04:03 PM ? Pathology Lab ? Pathologist: ? Tanya Esquivel MD ? Specimen: ?Bone Marrow ? 02/21/2024 1:08 PM CDT [facility] Final Diagnosis Bone marrow, flow cytometry: - No clonal B-cell, aberrant T-cell, or increased blast population detected 02/21/2024 1:08 PM [facility] Flow Cytometry Interpretation Viability: 100% B-cells: polytypic, kappa:lambda ratio 2.2:1 T-cells: no immunophenotypic aberrancy detected CD4:CD8 ratio 1.2:1. No aberrant CD57 or CD56 expression on CD8+ T-cells. Blasts: not increased A bone marrow aspirate smear prepared from the flow cytometry specimen has been reviewed for construction quality control manager purposes. 02/21/2024 1:08 PM CDT [facility] Flow Cytometry Results Differential Result Comment Flow Cell Count /uL 1,480 Total Viability % 100.0 Lymphocytes % 75 Dim CD45 Region % 6 Monocytes % 5 Granulocytes % 13 02/21/2024 1:08 PM CDT [facility] Reason for test Other pancytopenia (HCC) 284.19 02/21/2024 1:08 PM [facility] Client Specimen ID # [id number] 02/21/2024 1:08 PM [facility] Number of markers 32 were [...] Flow CD57 A-31 TCR-AB A-32 TCR-GD A-9 Sproul+CD19+ A-10 Lambda+CD19+ A-19 Flow HLA-DR 02/21/2024 1:08 PM [facility] Pathologist Location at [facility] 02/21/2024 1:08 PM [facility] Disclaimer Test performed at [facility], [address] [place] [address], [address]. *The established laboratory minimum viability is 70%. [...] high complexity clinical testing. 02/21/2024 1:08 PM [facility] Embedded Images 1:08 PM [facility] Pathology/Cytolo gy BONE MARROW SPECIMEN / Unknown 02/18/2024 10:55 AM CDT 02/18/2024 4:03 PM CDT Ignacio Hernández MD LAB - PATHO LOGY/CYTOLOGY ORDERABLES [facility] [address] [place] [address], [place] [phone] * BONE MARROW BIOPSY (STL) (02/18/2024 10:55 AM CDT) Case Report Bone Marrow Patholog y Report ?Case: [id number] ? Authorizing Provider: ??Ignacio Hernández ? Collected: ? 02/18/2024 10:55 AM ? MD Gerber ? Ordering Location: ? [facility] - ??Received: ?02/21/2024 03:32 PM ? Pathology Lab ? Pathologist: ? Tanya Esquivel MD ? Specimens: ?? A) - Bone Marrow Clot ? B) - Bone Marrow Core ? 02/24/2024 11:16 AM [facility] Final Diagnosis Bone marrow, aspirate, clot section, and core biopsy: - High-grade myeloid neoplasm. - See description and comment. 02/24/2024 11:16 AM [facility] Comment Overall findings are those [...] immunohistochemistry (K:L of ~1). 02/24/2024 11:16 AM [facility] Peripheral Smear Description Not submitted. 02/24/2024 11:16 AM [facility] Bone Marrow Aspirate Differential count (200 cells): not performed due to hemodilution. Specimen quality: hemodilute Mostly peripheral blood elements. No blasts seen. Too few cells to assess for dysplasia. Storage iron (by special stain): cannot be assessed due to lack of spicules. 02/24/2024 11:16 AM [facility] Bone Marrow Core Biopsy and [...] morphology: peripheral blood only. 02/24/2024 11:16 AM [facility] Flow Cytometry Summary Bone marrow, flow cytometry ([id number]): - No clonal B-cell, aberrant T-cell, or increased blast population detected 02/24/2024 11:16 AM [facility] Clinical History Pancytopenia. 02/24/2024 11:16 AM [facility] Materials Received Received are 18 slide(s) and 3 block (s) labeled [id number] and along with a copy of the outside pathology report[place] [address] . All original materials are returned to the referring institution, along with a copy of our final report. 02/24/2024 11:16 AM [facility] Pathologist Location at [facility] 02/24/2024 11:16 AM [facility] Disclaimer The performance characteristics of all immunohistochemical and indirect immunofluorescence stains (if any) cited in this report were determined by the Histopathology Laboratory of [facility]. Some of these tests were developed by [...] attending (teaching) pathologist. 02/24/2024 11:16 AM CDT [facility] Addendum 1 Additional immunohistochemistry shows blasts to be negative for CD61 ruling out acute megakaryoblastic leukemia. E-Cadherin shows weak staining in a subset of erythroid precursors, ruling out pure erythroid leukemia. 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 02/24/2024 11:16 AM CDT [facility] Addendum electronically signed by Tanya Esquivel MD on 02/24/2024 at 11:16 AM Embedded Images 02/24/2024 11:16 AM CDT [facility] Pathology/Cytology BONE MARROW SPECIMEN / Unknown 02/18/2024 10:55 AM CDT 02/21/2024 3:32 PM CDT Miscellaneous samples (specimen) BONE MARROW SPECIMEN / Unknown 02/18/2024 10:55 AM CDT 02/21/2024 3:32 PM CDT Ignacio Hernández MD LAB - PATHO LOGY/CYTOLOGY ORDERABLES Performing Organization Address City/State/[facility] Co de Phone Number [facility] [address] [facility] [phone] from [place] [address] TAIWO TAPIA Personal/Family Spouse [address] [place] [address] [place] [address]
--- OUTSIDE RECORDS SUMMARY | 2024-04-20 03:12 | XMS_ITS | Referral Summary ---
Author Organization [facility] Address [address] [place] [address] Care Team Providers Care Performance Test Architect Name Role Phone Unavailable Primary Care Provider Unavailabl e Source Comments [facility],non-owned Affiliates and Associated Physician Practices is amultiple site organization consisting of ambulatory clinics and hospital sitesin [place], [place] and [place]. This disclosure is being madepursuant to the Care Everywhere program and may not contain all information available regarding this patient. Last updated 18.[facility] Encounters Date Type Department Care Team Description 02/21/2024 Lab Requisition [facility] - Pathology Lab [address] [place] [address] Ignacio Hernández MD Illness, unspecified 02/18/2024 Lab Requisition [facility] - Pathology Lab [address] [place] [address] Ignacio Hernández MD Other pancytopenia (HCC) from [...] AM CDT) Case Report Flow Cytometry ?Case: [id number] ? Authorizing Provider: ??Ignacio Hernández ? Collected: [...] increased blast population detected 02/21/2024 1:08 PM [facility] Flow Cytometry Interpretation Viability: 100% B-cells: polytypic, kappa:lambda ratio 2.2:1 T-cells: no immunophenotypic aberrancy detected CD4:CD8 ratio 1.2:1. No aberrant CD57 or CD56 expression on CD8+ T-cells. Blasts: not increased A bone marrow aspirate smear prepared from the flow cytometry specimen has been reviewed for quality auditor purposes. 02/21/2024 1:08 PM [facility] Flow Cytometry Results Differential Result Comment Flow Cell Count /uL 1,480 Total Viability % 100.0 Lymphocytes % 75 Dim CD45 Region % 6 Monocytes % 5 Granulocytes % 13 02/21/2024 1:08 PM [facility] Reason for test Other pancytopenia (HCC) 284.19 02/21/2024 1:08 PM [facility] Client Specimen ID # [id number] 02/21/2024 1:08 PM [facility] Number of markers 32 [...] Flow CD57 A-31 TCR-AB A-32 TCR-GD A-9 [place]+CD19+ A-10 Lambda+CD19+ A-19 Flow HLA-DR 02/21/2024 1:08 PM [facility] Pathologist Location at [facility] 02/21/2024 1:08 PM [facility] Disclaimer Test performed at [facility], [address], [place], [place], [address]. *The established laboratory minimum viability is 70%. [...] complexity clinical testing. 02/21/2024 1:08 PM CDT [facility] Embedded Images 1:08 PM CDT [facility] Pathology/Cytolo gy BONE MARROW SPECIMEN / Unknown 02/18/2024 10:55 AM CDT 02/18/2024 4:03 PM CDT Ignacio Hernández MD LAB - PATHO LOGY/CYTOLOGY ORDERABLES Performing Organization Address [facility]/State/ZIP Co de Phone Number [facility] [address] [place] [address]. [place] [address], [facility] [phone] * BONE MARROW BIOPSY (STL) (02/18/2024 10:55 AM CDT) Case Report Bone Marrow Patholog y Report ?Case: [id number] ? Authorizing Provider: ??Ignacio Hernández ? Collected: ? 02/18/2024 10:55 AM ? MD Gerber ? Ordering Location: ? [facility] - ??Received: ?02/21/2024 03:32 PM ? Pathology Lab ? Pathologist: ? Tanya Esquivel MD ? Specimens: ?? A) - Bone Marrow Clot ? B) - Bone Marrow Core ? 02/24/2024 11:16 AM [facility] Final Diagnosis Bone marrow, aspirate, clot section, and core biopsy: - High-grade myeloid neoplasm. - See description and comment. 02/24/2024 11:16 AM [facility] Comment Overall findings are [...] immunohistochemistry (K:L of ~1). 02/24/2024 11:16 AM [facility] Peripheral Smear Description Not submitted. 02/24/2024 11:16 AM [facility] Bone Marrow Aspirate Differential count (200 cells): not performed due to hemodilution. Specimen quality: hemodilute Mostly peripheral blood elements. No blasts seen. Too few cells to assess for dysplasia. Storage iron (by special stain): cannot be assessed due to lack of spicules. 02/24/2024 11:16 AM [facility] Bone Marrow Core Biopsy [...] morphology: peripheral blood only. 02/24/2024 11:16 AM [facility] Flow Cytometry Summary Bone marrow, flow cytometry ([id number]): - No clonal B-cell, aberrant T-cell, or increased blast population detected 02/24/2024 11:16 AM [facility] Clinical History Pancytopenia. 02/24/2024 11:16 AM [facility] Materials Received Received are 18 slide(s) and 3 block (s) labeled [id number] and along with a copy of the outside pathology report. [place] [address] . All original materials are returned to the referring institution, along with a copy of our final report. 02/24/2024 11:16 AM [facility] Pathologist Location at [facility] 02/24/2024 11:16 AM [facility] Disclaimer The performance characteristics of all immunohistochemical and indirect immunofluorescence stains (if any) cited in this report were determined by the Histopathology Laboratory of [facility]. Some of these tests were developed [...] the attending (teaching) pathologist. 02/24/2024 11:16 AM [facility] Addendum 1 Additional immunohistochemistry shows blasts to be negative for CD61 ruling out acute megakaryoblastic leukemia. E-Cadherin shows weak staining in a subset of erythroid precursors, ruling out pure erythroid leukemia. 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 02/24/2024 11:16 AM [facility] Addendum electronically signed by Tanya Esquivel MD on 02/24/2024 at 11:16 AM Embedded Images 02/24/2024 11:16 AM [facility] Pathology/Cytology BONE MARROW SPECIMEN / Unknown 02/18/2024 10:55 AM CDT 02/21/2024 3:32 PM CDT Miscellaneous samples (specimen) BONE MARROW SPECIMEN / Unknown 02/18/2024 10:55 AM CDT 02/21/2024 3:32 PM CDT Ignacio Hernández MD LAB - PATHO LOGY/CYTOLOGY ORDERABLES [facility] [address] [place] [address], [facility] [phone] from Last 3 Months
--- OUTSIDE RECORDS SUMMARY | 2024-04-20 03:13 | XMS_ITS | Encounter Summary ---
Author Organization [facility] Address [address] [place] [address] Care Team Providers Care Roll Slicing Machine Tender Name Role Phone Yaya Britt MD Primary Care Provider [phone] Encounter Details Date Type Department Care Team (Late st Contact Info) Description 03/01/2024 External Device Data [facility] ABSTRACTION Provider, Abstract NO ADDRESS ON FILE Social History Tobacco Use Types Packs/Day Years Used Date Smoking Tobacco: Former Cigarettes 2 30 Q uit: 08/04/2007 Smokeless Tobacco: Never Alcohol Use Standard Drinks/Week Comments Never 0 (1 standard drink = 0.6 oz pur e alcohol) Sex and Gender Information Value Date Recorded Sex Assigned at Not on file Gender Identity Not on file Sexual Orientation Not on file documented as of this encounter Plan of Treatment Not on file documented as of this encounter Visit Diagnoses Not on filedocumented in this encounter Care Teams Roll Slicing Machine Tender Relationship Specialty Start Date End Date Yaya Britt MD [address] [place] [address] PCP - General Family Practice 07/13/23 documented as of this encounter
--- OUTSIDE RECORDS SUMMARY | 2024-04-20 03:13 | XMS_ITS | Encounter Summary ---
Author Organization [facility] NARENDRARingpay [facility] Address [address] [place] [address] Care Team Providers Care Ict Help Desk Officer Name Role Phone Yaya Britt MD Primary Care Provider [phone] Encounter Details Date Type Department Care Team (Late st Contact Info) Description 04/17/2024 Abstract [facility] Oncology and Hematology - [place] [address] [place] [address] [address] [place] [address] Kaleb Tomlin MD [address] [facility] [address] [place] [address] Social History Tobacco Use Types Packs/Day Years [...] on filedocumented in this encounter Care Teams Ict Help Desk Officer Relationship Specialty Start Date End Date Yaya Britt MD [address] [place] [address] PCP - General Family Practice 07/13/23 documented as of this encounter
--- OUTSIDE RECORDS SUMMARY | 2024-04-20 03:13 | XMS_ITS | Encounter Summary ---
Author Organization [facility] SHERRYSonico [facility] Address [address] [place] [address] Care Team Providers Care Automobile Upholstery Trim Installer Name Role Phone Yaya Britt MD Primary Care Provider [phone] Reason for Visit * Reason Onset Date Comments Medication Refill 03/16/2024 Encounter Details Date Type Department Care Team (Late st Contact Info) Description 03/16/2024 Refill [facility] Oncology and Hematology - [place] [address] [place] [address] [address] [place] [address] Kaleb Tomlin MD [address] [facility] [address] [place] [address] Social History Tobacco Use Types [...] on filedocumented in this encounter Care Teams Automobile Upholstery Trim Installer Relationship Specialty Start Date End Date Yaya Britt MD [address] [place] [address] PCP - General Family Practice 07/13/23 documented as of this encounter
--- OUTSIDE RECORDS SUMMARY | 2024-04-20 03:13 | XMS_ITS | Encounter Summary ---
Author Organization [facility] [employer]DRAW[employer] [facility] Address [address] [place] [address] Care Team Providers Care Smoke Chaser Name Role Phone Yaya Britt MD Primary Care Provider [phone] Encounter Details Date Type Department Care Team (Late st Contact Info) Description 02/22/2024 Orders Only [facility] Oncology and Hematology - Josh [address] [facility] [address] [place] [address] Kaleb Tomlin MD [address] [facility] [address] [place] [address] Social History Tobacco Use Types [...] Procedure Name Priority Date/Time Associated Diagnosis Comments KAPPA/LAMBDA LIGHT CHAINS Routine 02/21/2024 11:11 AM CDT documented in this encounter Results * KAPPA/LAMBDA, FREE LIGHT CHAINS (02/21/2024 11:11 AM CDT) Blood Kaleb Tomlin MD CHEMISTRY ORDERABLES documented in this encounter Visit Diagnoses Not on filedocumented in this encounter Care Teams Smoke Chaser Relationship Specialty Start Date End Date Yaya Britt MD [address] [place] [address] PCP - General Family Practice 07/13/23 documented as of this encounter
--- OUTSIDE RECORDS SUMMARY | 2024-04-20 03:13 | XMS_ITS | Encounter Summary ---
Author Organization [facility] NARENDRAWineSimple [facility] Address [address] [place] [address] Care Team Providers Care Resource Efficiency Manager Name Role Phone Yaya Britt MD Primary Care Provider [phone] Encounter Details Date Type Department Care Team (Late st Contact Info) Description 03/08/2024 Abstract [facility] Oncology and Hematology - [place] [address] [place] [address] [address] [place] [address] Kaleb Tomlin MD [address] [facility] [address] [place] [address] Social History Tobacco Use Types [...] on filedocumented in this encounter Care Teams Resource Efficiency Manager Relationship Specialty Start Date End Date Yaya Britt MD [address] [place] [address] PCP - General Family Practice 07/13/23 documented as of this encounter
--- OUTSIDE RECORDS SUMMARY | 2024-04-20 03:13 | XMS_ITS | Encounter Summary ---
Author Organization [facility] NARENDRAMobi[employer] [facility] Address [address] [place] [address] Care Team Providers Care Trimming Department Blocker Name Role Phone Yaya Britt MD Primary Care Provider [phone] Encounter Details Date Type Department Care Team (Late st Contact Info) Description 02/15/2024 Orders Only [facility] Oncology and Hematology - Josh [address] [facility] [address] [place] [address] Kaleb Tomlin MD [address] [facility] [address] [place] [address] Chronic anemia (Primary Dx) Social History Tobacco Use Types [...] Priority Associated Diagnoses Orde r Schedule CBC WITH DIFFERENTIAL Lab Routine Chronic anemia Expected: 02/15/2024, Expires: 02/14/2025 COMPREHENSIVE METABOLIC PANEL Lab Routine Chronic anemia Expected: 02/15/2024, Expires: 02/14/2025 FERRITIN Lab Routine Chronic anemia Expected: 02/15/2024, Expires: 02/14/2025 IRON, TIBC, AND PERCENT SATURATION Lab Routine Chronic anemia Expected: 02/15/2024, Expires: 02/14/2025 VITAMIN B12 AND FOLATE Lab Routine Chronic anemia Expected: 02/15/2024, Expires: 02/14/2025 documented as of this encounter Visit Diagnoses Diagnosis Chronic anemia- Primary Anemia, unspecified documented in this encounter Care Teams Trimming Department Blocker Relationship Specialty Start Date End Date Yaya Britt MD [address] [place] [address] PCP - General Family Practice 07/13/23 documented as of this encounter
--- OUTSIDE RECORDS SUMMARY | 2024-04-20 03:13 | XMS_ITS | Encounter Summary ---
Author Organization [facility] Address [address] [place] [address] Care Team Providers Care Branch Service Associate Name Role Phone Unavailable Primary Care Provider Unavailabl e Encounter Details Date Type Department Care Team (Late st Contact Info) Description 02/18/2024 Lab Requisition [facility] - Pathology Lab [address] [place] [address] Ignacio Hernández MD [address] [facility] [address] [place] [address] Other pancytopenia (HCC) Social History Tobacco [...] AM CDT) Case Report Flow Cytometry ?Case: [id number] ? Authorizing Provider: ??Ignacio Hernández ? Collected: ? 02/18/2024 10:55 AM ? MD Gerber ? [facility] ? [facility] - ??Received: ?02/18/2024 04:03 PM ? Pathology Lab ? Pathologist: ? Tanya Esquivel MD ? Specimen: ?Bone Marrow ? 02/21/2024 1:08 PM CDT [facility] Final Diagnosis Bone marrow, flow cytometry: - No clonal B-cell, aberrant T-cell, or increased blast population detected 02/21/2024 1:08 PM CDT [facility] Flow Cytometry Interpretation Viability: 100% B-cells: polytypic, kappa:lambda ratio 2.2:1 T-cells: no immunophenotypic aberrancy detected CD4:CD8 ratio 1.2:1. No aberrant CD57 or CD56 expression on CD8+ T-cells. Blasts: not increased A bone marrow aspirate smear prepared from the flow cytometry specimen has been reviewed for chemistry quality control technician purposes. 02/21/2024 1:08 PM [facility] Flow Cytometry Results Differential Result Comment Flow Cell Count /uL 1,480 Total Viability % 100.0 Lymphocytes % 75 Dim CD45 Region % 6 Monocytes % 5 Granulocytes % 13 02/21/2024 1:08 PM [facility] Reason for test Other pancytopenia (HCC) 284.19 02/21/2024 1:08 PM [facility] Client Specimen ID # [id number] 02/21/2024 1:08 PM [facility] Number of markers 32 [...] Flow CD57 A-31 TCR-AB A-32 TCR-GD A-9 [place]+CD19+ A-10 Lambda+CD19+ A-19 Flow HLA-DR 02/21/2024 1:08 PM [facility] Pathologist Location at [facility] 02/21/2024 1:08 PM [facility] Disclaimer Test performed at [facility], [address] [place] [address], [address]. *The established laboratory minimum viability is 70%. [...] complexity clinical testing. 02/21/2024 1:08 PM CDT [facility] Embedded Images 1:08 PM CDT [facility] Pathology/Cytolo gy BONE MARROW SPECIMEN / Unknown 02/18/2024 10:55 AM CDT 02/18/2024 4:03 PM CDT Ignacio Hernández MD LAB - PATHO LOGY/CYTOLOGY ORDERABLES [facility] [address] [phone] documented in this encounter Visit Diagnoses Diagnosis Other pancytopenia (HCC) Other pancytopenia documented in this encounter
--- OUTSIDE RECORDS SUMMARY | 2024-04-20 03:13 | XMS_ITS | Encounter Summary ---
Author Organization [facility] SHERRYKairos [place] [facility] Address [address] [place] [address] Care Team Providers Care Network Security Engineer Name Role Phone Yaya Britt MD Primary Care Provider [phone] Encounter Details Date Type Department Care Team (Late st Contact Info) Description 04/05/2024 Abstract [facility] Oncology and Hematology - Josh [address] [place] [address] [address] [place] [address] Kaleb Tomlin MD [address] [facility] [address] [place] [address] Social History Tobacco Use Types [...] on filedocumented in this encounter Care Teams Network Security Engineer Relationship Specialty Start Date End Date Yaya Britt MD [address] [place] [address] PCP - General Family Practice 07/13/23 documented as of this encounter
--- OUTSIDE RECORDS SUMMARY | 2024-04-20 03:13 | XMS_ITS | Encounter Summary ---
Author Organization [facility] Address [address] [place] [address] Care Team Providers Care Manager Shift Name Role Phone Yaya Britt MD Primary Care Provider [phone] Encounter Details Date Type Department Care Team (Late st Contact Info) Description 11/16/2023 External Device Data STL ABSTRACTION Provider, Abstract [...] on filedocumented in this encounter Care Teams Manager Shift Relationship Specialty Start Date End Date Yaya Britt MD [address] [place] [address] PCP - General Family Practice 07/13/23 documented as of this encounter
--- OUTSIDE RECORDS SUMMARY | 2024-04-20 03:13 | XMS_ITS | Encounter Summary ---
Author Organization [facility] NARENDRABababoo [facility] Address [address] [place] [address] Care Team Providers Care Organ Pipe Maker Metal Name Role Phone Yaya Britt MD Primary Care Provider [phone] Encounter Details Date Type Department Care Team (Late st Contact Info) Description 03/24/2024 Abstract [facility] Oncology and Hematology - [place] [address] [place] [address] [address] [place] [address] Kaleb Tomlin MD [address] [facility] [address] [place] [address] Social History Tobacco Use Types [...] on filedocumented in this encounter Care Teams Organ Pipe Maker Metal Relationship Specialty Start Date End Date Yaya Britt MD [address] [place] [address] PCP - General Family Practice 07/13/23 documented as of this encounter
--- OUTSIDE RECORDS SUMMARY | 2024-04-20 03:13 | XMS_ITS | Encounter Summary ---
Author Organization [facility] Address [address] [place] [address] Care Team Providers Care Business Info Consultant Name Role Phone Yaya Britt MD Primary Care Provider [phone] Encounter Details Date Type Department Care Team (Late st Contact Info) Description 10/05/2023 External Device Data STL ABSTRACTION Provider, Abstract [...] on filedocumented in this encounter Care Teams Business Info Consultant Relationship Specialty Start Date End Date Yaya Britt MD [address] [place] [address] PCP - General Family Practice 07/13/23 documented as of this encounter
--- OUTSIDE RECORDS SUMMARY | 2024-04-20 03:13 | XMS_ITS | Encounter Summary ---
Author Organization [facility] Healthcare Address [address] [place] [address] Care Team Providers Care Kiln Stoker Name Role Phone Yaya Britt MD Primary Care Provider [phone] Kaleb Tomlin MD Unavailable [phone] Evan Mai MD Unavailable [phone] Reason for Visit * Procedure (Routine) - Closed Specialty Diagnoses / Procedures Referred By Taco crawford Referred To Contact Diagnoses 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 having achieved remission (HCC) Procedures Biopsy bone marrow Evan Mai MD [address] [place] [address] Phone: tel: fax: [facility] (All Locations) Referral ID Status Reason Start Date Expiration Date Visits Re quested Visits Authorized [id number] Closed 03/21/2024 04/20/2025 1 1 Encounter Details Date Type Department Care Team (Late st Contact Info) Description 03/27/2024 1:30 PM COOK BOAT Infusion [facility] - Infusion [address] [facility] [address] 6 [place] [address] 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 having achieved remission [...] on file Legal Sex Male 2:01 AM COOK BOAT Gender Identity Not on file Sexual Orientation Not on file documented as of this encounter Last Filed Vital Signs Vital Sign Reading Time Taken Comments Blood Pressure 108/65 03/27/2024 2:29 PM COOK BOAT Pulse 72 03/27/2024 2:29 PM COOK BOAT Temperature 36.9 ??C (98.4 ??F) 03/27/2024 1:35 PM CS T Respiratory Rate 18 03/27/2024 2:29 PM COOK BOAT Oxygen Saturation 96% 03/27/2024 2:29 PM COOK BOAT Inhaled Oxygen Concentration - - Weight 92.8 kg (204 lb 9.4 oz) 03/27/2024 1:35 P M COOK BOAT Height - - Body Mass Index 31.11 12/24/2023 9:27 AM CDT documented in this encounter Procedure Notes * Mohinder Walton RN - 03/27/2024 1:30 PM CST Bone Marrow Biopsy Procedure Note Pre-Procedure Assessment Informed Consent: The purpose, benefits, material risks, and alternatives of the recommended procedure were discussed. The patient or their apprenticeship training representative understood the discussions and consented to the procedure.: Yes Pre-Procedure Education: Process reviewed with patient; verbalizes understanding: Yes Consent form signed?: Yes Pt has a motor coach bus driver?: NA Does patient have a history [...] dry intact?: Yes Discharged via: Wheelchair, Designated motor coach bus driver Discharged time: 1443 HGB 7.9, patient asymptomatic. Per Dinh Adams RN, patient to follow up with medical team at home in [place] to schedule transfusion. Patient and family agreeable [...] 53 (LL) 12/29/2023 Mohinder Walton RN 03/27/24 BOAT documented in this encounter Plan of Treatment Not on file documented as of this encounter Results * Surgical pathology (03/27/2024 2:13 PM COOK BOAT) Tissue (Bone Marrow Biopsy) 03/27/2024 2:13 PM COOK BOAT 03/27/2024 5:22 PM COOK BOAT Narrative PATHOLOGY [facility] - 03/29/2024 2:40 PM COOK BOAT EPIC results best viewed via link to PDF [facility] [place] [address] Note to Patients: This report may contain [...] Gender: ??M : ??1960 (Age: 63) Address: ??[address] [place] [address] ??[id number] Hospital #: ??[id number] Taken:03/27/2024 Received:03/27/2024 Reported: 03/29/2024 Patient Type: [facility] MED ONC ?? Service: Laboratory Location: [...] Report Electronically Reviewed and Signed Out By ??Tudne Salinas M.D. 03/29/2024 14:40:59 Diagnosis Comment In [...] 3 ?The differential count may not be apprenticeship training representative of marrow elements ? Bone marrow [...] on the basis of this assay. A Kafuman-Giemsa stained slide from the flow cytometry specimen was examined for internal senior quality control inspector purposes. Flow cytometry was performed using antibodies to the following cellular antigens: CD45, CD34, CD19, CD20, [place], Lambda, CD10, CD5, CD200, CD38, CD2, CD3, [...] Surgical Pathology and Flow Cytometry Departments at [facility] as part of an ongoing quality control checker program and in compliance with federally mandated [...] Surgical Pathology and Flow Cytometry Departments of [facility]. ??It has not been cleared or approved by the U. S. Food and Drug Administration. IMAGES AND SCANNED DOCUMENTS, IF INCLUDED, ONLY VIEWABLE IN PDF VERSION OF REPORT Evan Mai MD LAB PATHOLOGY ORDERABLES Final Result PATHOLOGY [facility] 3rd Floor [place], [place] [phone] documented in this encounter Visit Diagnoses Diagnosis [...] achieved remission (HCC) Given 03/27/2024 2:14 PM COOK BOAT 150 mg Left Upper Hip documented in [...] 03/27/2024 documented in this encounter Care Teams Kiln Stoker Relationship Specialty Start Date End Date Yaya Britt MD PCP - General 07/31/16 Kaleb Tomlin MD [address] [place] [phone] Referring Physician Hematology 02/29/24 Evan Mai MD [address] [facility] [address] DIV IM [place] [address] Consulting Physician Internal Medicine 03/01/24 documented as of this encounter
--- OUTSIDE RECORDS SUMMARY | 2024-04-20 03:13 | XMS_ITS | Encounter Summary ---
Author Organization [facility] Healthcare Address [address] [place] [address] Care Team Providers Care Vat House Supervisor Name Role Phone Yaya Britt MD Primary Care Provider [phone] Kaleb Tomlin MD Unavailable [phone] Evan Mai MD Unavailable Reason for Visit * (Routine) - Pending Review Specialty Diagnoses / Procedures Referred By Taco crawford Referred To Contact Diagnoses 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 having achieved remission (HCC) Procedures Hematologic Molecular Algorithm Bone marrow Evan Mai MD [address] [place] [address] Phone: tel: fax: Referral ID Status Reason Start Date Expiration Date V isits Requested Visits Authorized [id number] Pending Review 03/21/2024 04/20/2025 1 1 Encounter Details Date Type Department Care Team (Latest Contact Info) Description 03/27/2024 12:30 PM RESTAURANT RECRUITER Clinical Support [facility] - Lab Collection [address] [facility] [address] [place] [address] 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 having achieved remission [...] file Legal Sex Male 2:01 AM RESTAURANT RECRUITER Gender Identity Not on file Sexual Orientation Not on file documented as of this encounter Plan of Treatment Not on file documented as of this encounter Procedures Procedure Name Priority Date/Time Associated Diagnosis Comments CYTOGENETICS TRACKING ORDER Routine 03/27/2024 2:13 PM RESTAURANT RECRUITER 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 having achieved remission (HCC) CHROMOSEQ TRACKING ORDER Routine 03/27/2024 2:13 PM RESTAURANT RECRUITER 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 having achieved remission (HCC) MYELOSEQ TRACKING ORDER Routine 03/27/2024 2:13 PM RESTAURANT RECRUITER 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 having achieved remission (HCC) FLOW LEUKEMIA/LYMPHOMA Routine 2:13 PM RESTAURANT RECRUITER 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 having achieved remission (HCC) HEMATOLOGIC MOLECULAR ALGORITHM Routine 03/27/2024 2:13 PM RESTAURANT RECRUITER 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 having achieved remission (HCC) SURGICAL PATHOLOGY Routine 03/27/2024 2: 13 PM RESTAURANT RECRUITER 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 having achieved remission (HCC) EGFR Routine 03/27/2024 1:23 PM RESTAURANT RECRUITER 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 having achieved remission (HCC) CBC WITH AUTO DIFFERENTIAL Routine 03/27/2024 1:23 PM RESTAURANT RECRUITER 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 having achieved remission (HCC) MANUAL DIFFERENTIAL Routine 03/27/2024 1 :23 PM RESTAURANT RECRUITER 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 having achieved remission (HCC) COMPREHENSIVE METABOLIC PANEL Routine 03/27/2024 1:23 PM RESTAURANT RECRUITER 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 having achieved remission (HCC) documented in this encounter Results * Surgical pathology (03/27/2024 2:13 PM RESTAURANT RECRUITER) Tissue (Bone Marrow Biopsy) 03/27/2024 2:13 PM RESTAURANT RECRUITER 03/27/2024 5:22 PM RESTAURANT RECRUITER Narrative PATHOLOGY [facility] - 03/29/2024 2:40 PM RESTAURANT RECRUITER EPIC results best viewed via link to PDF [facility] Laboratory [place] [address] Note to Patients: This report may contain [...] Gender: ??M : ??1960 (Age: 63) Address: ??[address] [place] [address] ??[phone] Hospital #: ??[id number] Taken:03/27/2024 Received:03/27/2024 Reported: 03/29/2024 Patient Type: BJ [...] 3 ?The differential count may not be telephone claims representative of marrow elements ? Bone marrow [...] specimen was examined for internal quality control industrial engineer purposes. Flow cytometry was performed using antibodies to the following cellular antigens: CD45, CD34, CD19, CD20, [place], Lambda, CD10, CD5, CD200, CD38, CD2, CD3, [...] Surgical Pathology and Flow Cytometry Departments at [facility] as part of an ongoing quality control [...] Surgical Pathology and Flow Cytometry Departments of [facility]. ??It has not been cleared or approved by the U. S. Food and Drug Administration. IMAGES AND SCANNED DOCUMENTS, IF INCLUDED, ONLY VIEWABLE IN PDF VERSION OF REPORT us Evan Mai MD LAB PATHOLOGY ORDERABLES Final Result PATHOLOGY [facility] 3rd Floor [place], [place] [phone] * Flow Leukemia/Lymphoma Bone marrow (03/27/2024 2:13 PM RESTAURANT RECRUITER) Kaufman Stain Test Completed Leukemia/Lymp johana Result See separate Surgical Pathology report. CA[facility]LIN [facility] Bone marrow 03/27/2024 2:13 PM RESTAURANT RECRUITER 03/27/2024 6:37 PM RESTAURANT RECRUITER Narrative CA[facility]LIN [facility] - 03/28/2024 8:22 AM RESTAURANT RECRUITER Tube information: Green top (Sodium Heparin) Evan Mai MD LAB PATHOLOGY ORDERABLES Final Result [facility] [place] [address] * Cytogenetics Specimen Tracking Bone marrow (03/27/2024 2:13 PM RESTAURANT RECRUITER) Pathologist [facility] Cytotenetics Tracking Order Received Bone marrow 03/27/2024 2:13 PM RESTAURANT RECRUITER 03/27/2024 5:26 PM RESTAURANT RECRUITER Narrative CA[facility]LIN [facility] - 03/28/2024 9:48 AM RESTAURANT RECRUITER Please read the Cytogenetics Epic requisition for specimen collection requirements. Evan Mai MD LAB BODY FLUIDS AND STOOLS ORD ERABLES Final Result Performing Organization Address [facility] Co de Phone Number [facility] [place] [address] * Hematologic Molecular Algorithm Bone marrow (03/27/2024 2:13 PM RESTAURANT RECRUITER) Pathologist [facility] Heme Molecular Algorithm Received Bone marrow 03/27/2024 2:13 PM RESTAURANT RECRUITER 03/28/2024 9:29 AM RESTAURANT RECRUITER Narrative CA[facility]LIN [facility] - 04/05/2024 11:34 AM RESTAURANT RECRUITER Tube information: [place] top Clinical History / Treatment Plan:->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 Select diagnosis - - Appropriate molecular tests will be performed based on histopathological diagnosis.->AML 04/02/2024 - HMA complete, no additional testing indicated. us Evan Mai MD LAB BODY FLUIDS AND STOOLS ORD ERABLES Final Result Performing Organization Address City/[facility]/ZIP Co de Phone Number [facility] [place] [address] * MyeloSeq tracking order Bone marrow (03/27/2024 2:13 PM RESTAURANT RECRUITER) [facility] MyeloSeq Received Bone marrow 03/27/2024 2:13 PM RESTAURANT RECRUITER 03/27/2024 5:26 PM RESTAURANT RECRUITER Narrative CA[facility] - 03/28/2024 9:48 AM RESTAURANT RECRUITER Specimen type (select one):->Marrow Evan Mai MD LAB BODY FLUIDS AND STOOLS ORD ERABLES Final Result Performing Organization Address [facility]/[place] [address] * ChromoSeq tracking order Bone marrow (03/27/2024 2:13 PM RESTAURANT RECRUITER) [facility] ChromoSeq Tracking Order Received Bone marrow 03/27/2024 2:13 PM RESTAURANT RECRUITER 03/27/2024 5:26 PM RESTAURANT RECRUITER Narrative CA[facility] - 03/28/2024 9:48 AM RESTAURANT RECRUITER Specimen type (select one):->Marrow Evan Mai MD LAB BODY FLUIDS AND STOOLS ORD ERABLES Final Result Performing Organization Address [facility]/[place] [address] * eGFR (03/27/2024 1:23 PM RESTAURANT RECRUITER) [facility] eGFR >90 >=60 mL/min/1. 73 m2 Comment: [...] last reviewed 2021. Blood 03/27/2024 1:23 PM RESTAURANT RECRUITER 03/27/2024 1:36 PM RESTAURANT RECRUITER Evan Mai MD LAB BLOOD ORDERABLES Final Res ult [facility] One [facility] [place] [address] * (ABNORMAL) Manual Differential (03/27/2024 1:23 PM RESTAURANT RECRUITER) Cells Counted 147 Comment:Testing performed by : [facility], [address] [place] [phone] Neutrophil abs 0.5(L) 1.5 - 6.5 K/cumm CAITLIN ANDERSON Comment:Testing performed by : [facility], [address] [place] [address] Lymphocyte abs 0.9 0.8 - 3.3 K/cumm CAITLIN ANDERSON Comment:Testing performed by : [facility], [address] [place] [phone] Monocyte abs 0.0(L) 0.2 - 0.8 K/cumm CAITLIN ANDERSON Comment:Testing performed by : [facility], [address] [place] [phone] Eosinophil abs 0.0 0.0 - 0.5 K/cumm CERNER BJ Comment:Testing performed by : [facility], [address] [place] [phone] Basophil abs 0.0 0.0 - 0.1 K/cumm CERNER BJ Comment:Testing performed by : [facility], [address] [place] [phone] Neutrophil pct 31.0 % CERNER BJ Comment: Interpretive Data Percent cell count reference ranges are not reported, since discordance with absolute values may lead to misinterpretation of CBC data. Current Interpretive Data was last revised on 2017. Testing performed by: [facility], [address] [place] [phone] Lymphocyte pct 54.0 % CERNER BJ Comment: Interpretive Data Percent cell count reference ranges are not reported, since discordance with absolute values may lead to misinterpretation of CBC data. Current Interpretive Data was last revised on 2017. Testing performed by: [facility], [address] [place] [phone] Monocyte pct 0.0 % CERNER BJ Comment: Interpretive Data Percent cell count reference ranges are not reported, since discordance with absolute values may lead to misinterpretation of CBC data. Current Interpretive Data was last revised on 2017. Testing performed by: [facility], [address] [place] [phone] Eosinophil pct 1.0 % CERNER BJ Comment: Interpretive Data Percent cell count reference ranges are not reported, since discordance with absolute values may lead to misinterpretation of CBC data. Current Interpretive Data was last revised on 2017. Testing performed by: [facility], [address] [place] [phone] Basophil pct 1.0 % CERNER BJ Comment: Interpretive Data Percent cell count reference ranges are not reported, since discordance with absolute values may lead to misinterpretation of CBC data. Current Interpretive Data was last revised on 2017. Testing performed by: [facility], [address] [place] [phone] Metamyelocyte pct 3.0 % CERNER BJ Comment:Testing performed by : [facility], [address] [place] [phone] Myelocyte pct 1.0 % CERNER BJ Comment:Testing performed by : [facility], [address] [place], [place] [phone] Variant lymph pct 10.0 % CERRAMAN BJ Comment:Testing performed by : [facility], [address] [place], [place] [phone] Smudge cells, qual Present(A ) CERNER BJ Comment:Testing performed by : [facility], [address] [place], [place] [phone] Polychromasia 1+(A) CERRAMAN BJ Comment:Testing performed by : [facility], [address] [place], [place] [phone] Hypochromasia 1+(A) CERRAMAN BJ Comment:Testing performed by : [facility], [address] [place], [place] [phone] Anisocytosis 1+(A) CERRAMAN BJ Comment:Testing performed by : [facility], [address] [place], [place] [phone] Poikilocytosis 1+(A) CERRAMAN BJ Comment:Testing performed by : [facility], [address] [place], [place] [phone] Microcytes 1+(A) CERRAMAN BJ Comment:Testing performed by : [facility], [address] [place], [place] [phone] Macrocytes 1+(A) CERRAMAN BJ Comment:Testing performed by : [facility], [address] [place] [phone] Schistocytes 1+(A) CERRAMAN BJ Comment:Testing performed by : [facility], [address] [place], [place] [phone] Elliptocytes 1+(A) CERRAMAN BJ Comment:Testing performed by : [facility], [address] [place] [phone] Target cells 1+(A) CERRAMAN BJ Comment:Testing performed by : [facility], [address] [place] [address] Platelet estimate Decreased (A) CERRAMAN BJ Comment:Testing performed by : [facility], [address] [place] [address] Blood 03/27/2024 1:23 PM RESTAURANT RECRUITER 03/27/2024 1:32 PM RESTAURANT RECRUITER us Evan Mai MD LAB BLOOD ORDERABLES Final Res ult CAITLIN ANDERSON [facility] [place] [address] * (ABNORMAL) CBC with auto differential (03/27/2024 1:23 PM RESTAURANT RECRUITER) WBC 1.7(L) 3.8 - 9.9 K/cumm Comment:Testing performed by : [facility], [address] [place] [address] Hgb 7.9(L) 13.0 - 17.5 g/dL CERRAMAN BJ Comment:Testing performed by : [facility], [address] [place] [address] Hct 24.2(L) 38.9 - 50.3 % CERRAMAN BJ Comment:Testing performed by : [facility], [address] [place] [address] Plt 21(L) 150 - 400 K/cumm CERRAMAN BJ Comment:Testing performed by : [facility], [address] [place] [address] MPV 8.2 6.8 - 10.4 fL CERRAMAN BJ Comment:Testing performed by : [facility], [address] [place] [address] RBC 2.80(L) 4.30 - 5.80 M/cumm CERRAMAN BJ Comment:Testing performed by : [facility], [address] [place] [address] MCV 86.5 81.3 - 96.4 fL CERRAMAN BJ Comment:Testing performed by : [facility], [address] [place] [phone] MCH 28.3 27.1 - 33.3 pg CAITLIN ANDERSON Comment:Testing performed by : [facility], [address] [place], [place] [phone] MCHC 32.7 32.3 - 35.7 g/dL CAITLIN ANDERSON Comment:Testing performed by : [facility], [address] [place], [place] [phone] RDW CV 18.4(H) 11.1 - 14.9 % CA[facility]LIN [facility] Comment:Testing performed by : [facility], [address] [place], [place] [phone] NRBC abs 0.00 0.00 - 0.01 K/cumm CAITLIN ANDERSON Comment:Testing performed by : [facility], [address] [place] [phone] Blood 03/27/2024 1:23 PM RESTAURANT RECRUITER 03/27/2024 1:32 PM RESTAURANT RECRUITER us Evan Mai MD LAB BLOOD ORDERABLES Edited Re sult - Final [facility] [place] [address] * (ABNORMAL) Comprehensive metabolic panel (03/27/2024 1:23 PM RESTAURANT RECRUITER) Sodium 132(L) 135 - 145 mmol/L Potassium, pl 3.3 3.3 - 4.9 mmol/L [facility] Chloride 102 97 - 110 mmol/L [facility] CO2 25 22 - 32 mmol/L [facility] Anion gap 5 2 - 15 mmol/L [facility] BUN 20 6 - 25 mg/dL [facility] Creatinine 0.62(L) 0.80 - 1.30 mg/dL [facility] Glucose 105 70 - 199 mg/dL [facility] Comment: Interpretive Data Fasting glucose [...] 2022. Calcium 8.4(L) 8.5 - 10.3 mg/dL [facility] Bilirubin, total 0.6 0.1 - 1.2 mg/dL [facility] Protein, pl 7.0 6.5 - 8.5 g/dL [facility] Albumin 3.0(L) 3.5 - 5.0 g/dL [facility] Alk phos 80 40 - 130 Units/L [facility] ALT 7 7 - 55 Units/L [facility] AST 13 10 - 50 Units/L [facility] Blood 03/27/2024 1:23 PM RESTAURANT RECRUITER 03/27/2024 1:36 PM RESTAURANT RECRUITER us Evan Mai MD LAB BLOOD ORDERABLES Final Res ult [facility] [place] [address] documented in this encounter Visit Diagnoses Diagnosis 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 having achieved remission (HCC) documented in this encounter Orders Appointment Requests Count Last Ordered Date Fi rst Ordered Date ONCBCN LAB APPOINTMENT 1 03/27/2024 documented in this encounter Care Teams Vat House Supervisor Relationship Specialty Start Date End Date Yaya Britt MD PCP - General 07/31/16 Kaleb Tomlin MD [address] [place], [place] [phone] Referring Physician Hematology 02/29/24 Evan Mai MD [address] [facility] [address] DIV [place] [address] Consulting Physician Internal Medicine 03/01/24 documented as of this encounter
--- OUTSIDE RECORDS SUMMARY | 2024-04-20 03:13 | XMS_ITS | Encounter Summary ---
Author Organization [facility] Address [address] [place] [address] Care Team Providers Care Tavern Keeper Name Role Phone Yaya Britt MD Primary Care Provider [phone] Encounter Details Date Type Department Care Team (Late st Contact Info) Description 02/28/2024 Orders Only [facility] Oncology and Hematology - Josh [address] [facility] [address] [place] [address] Kaleb Tomlin MD [address] [facility] [address] [place] [address] Social History Tobacco Use Types [...] Procedure Name Priority Date/Time Associated Diagnosis Comments PROTEIN ELECTROPHORESIS, CSF Routine 02/25/2024 10:56 AM CDT documented in this encounter Results * PROTEIN ELECTROPHORESIS, CSF (02/25/2024 10:56 AM CDT) Cerebrospinal fluid CEREBROSPINAL FLUID / Unknown Kaleb Tomlin MD BODY FLUIDS AND STOO LS documented in this encounter Visit Diagnoses Not on filedocumented in this encounter Care Teams Tavern Keeper Relationship Specialty Start Date End Date Yaya Britt MD [address] [place] [address] PCP - General Family Practice 07/13/23 documented as of this encounter
--- OUTSIDE RECORDS SUMMARY | 2024-04-20 03:13 | XMS_ITS ---
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 Treatments may have been administered in another system.
--- OUTSIDE RECORDS SUMMARY | 2024-04-20 03:13 | XMS_ITS | Patient Health Summary ---
Author Organization [facility] Address [address] [place] [address] Care Team Providers Care Administrative Assistant Front Desk Name Role Phone Unavailable Primary Care Provider Unavailabl e Note from [facility],non-owned Affiliates and Associated Physician Practices is amultiple site organization consisting of ambulatory clinics and hospital sitesin [place], [place], [place] and [place]. This disclosure is being madepursuant to the Care Everywhere program and may not contain all information available regarding this patient. Last updated 18.[facility] Social History Tobacco Use Types Packs/Day Years [...] AM CDT) Case Report Flow Cytometry ?Case: [id number] ? Authorizing Provider: ??Ignacio Hernández ? Collected: ? 02/18/2024 10:55 AM ? MD Gerber ? [facility] ??Received: ?02/18/2024 04:03 PM ? Pathology Lab ? Pathologist: ? Tanya Esquivel MD ? Specimen: ?Bone Marrow ? 02/21/2024 1:08 PM [facility] Final Diagnosis Bone marrow, flow cytometry: - No clonal B-cell, aberrant T-cell, or increased blast population detected 02/21/2024 1:08 PM [facility] Flow Cytometry Interpretation Viability: 100% B-cells: polytypic, kappa:lambda ratio 2.2:1 T-cells: no immunophenotypic aberrancy detected CD4:CD8 ratio 1.2:1. No aberrant CD57 or CD56 expression on CD8+ T-cells. Blasts: not increased A bone marrow aspirate smear prepared from the flow cytometry specimen has been reviewed for quality control checker purposes. 02/21/2024 1:08 PM [facility] Flow Cytometry Results Differential Result Comment Flow Cell Count /uL 1,480 Total Viability % 100.0 Lymphocytes % 75 Dim CD45 Region % 6 Monocytes % 5 Granulocytes % 13 02/21/2024 1:08 PM [facility] Reason for test Other pancytopenia (HCC) 284.19 02/21/2024 1:08 PM [facility] Client Specimen ID # [id number] 02/21/2024 1:08 PM [facility] Number of markers 32 [...] Flow CD57 A-31 TCR-AB A-32 TCR-GD A-9 Sadorus+CD19+ A-10 Lambda+CD19+ A-19 Flow HLA-DR 02/21/2024 1:08 PM [facility] Pathologist Location at [facility] 02/21/2024 1:08 PM [facility] Disclaimer Test performed at [facility], [address] [place] [address], [address]. *The established laboratory minimum viability is 70%. [...] high complexity clinical testing. 02/21/2024 1:08 PM [facility] Embedded Images 10/21/202 4 1:08 PM CDT [facility] Pathology/Cytolo gy BONE MARROW SPECIMEN / Unknown 02/18/2024 10:55 AM CDT 02/18/2024 4:03 PM CDT Ignacio Hernández MD LAB - PATHO LOGY/CYTOLOGY ORDERABLES [facility] [address] [place] [facility] [place] [address], [facility] [phone] * BONE MARROW BIOPSY (STL) (02/18/2024 10:55 AM CDT) Case Report Bone Marrow Patholog y Report ?Case: [id number] ? Authorizing Provider: ??Ignacio Hernández ? Collected: ? 02/18/2024 10:55 AM ? MD Gerber ? [facility] ??Received: ?02/21/2024 03:32 PM ? Pathology Lab ? Pathologist: ? Tanya Esquivel MD ? Specimens: ?? A) - Bone Marrow Clot ? B) - Bone Marrow Core ? 02/24/2024 11:16 AM [facility] Final Diagnosis Bone marrow, aspirate, clot section, and core biopsy: - High-grade myeloid neoplasm. - See description and comment. 02/24/2024 11:16 AM [facility] Comment Overall findings are [...] immunohistochemistry (K:L of ~1). 02/24/2024 11:16 AM [facility] Peripheral Smear Description Not submitted. 02/24/2024 11:16 AM [facility] Bone Marrow Aspirate Differential count (200 cells): not performed due to hemodilution. Specimen quality: hemodilute Mostly peripheral blood elements. No blasts seen. Too few cells to assess for dysplasia. Storage iron (by special stain): cannot be assessed due to lack of spicules. 02/24/2024 11:16 AM [facility] Bone Marrow Core Biopsy [...] morphology: peripheral blood only. 02/24/2024 11:16 AM [facility] Flow Cytometry Summary Bone marrow, flow cytometry ([id number]): - No clonal B-cell, aberrant T-cell, or increased blast population detected 02/24/2024 11:16 AM [facility] Clinical History Pancytopenia. 02/24/2024 11:16 AM [facility] Materials Received Received are 18 slide(s) and 3 block (s) labeled [id number] and along with a copy of the outside pathology report. [place] [address] . All original materials are returned to the referring institution, along with a copy of our final report. 02/24/2024 11:16 AM [facility] Pathologist Location at [facility] 02/24/2024 11:16 AM [facility] Disclaimer The performance characteristics of all immunohistochemical and indirect immunofluorescence stains (if any) cited in this report were determined by the Histopathology Laboratory of [facility]. Some of these tests [...] attending (teaching) pathologist. 02/24/2024 11:16 AM CDT [facility] Addendum 1 Additional immunohistochemistry shows blasts to be negative for CD61 ruling out acute megakaryoblastic leukemia. E-Cadherin shows weak staining in a subset of erythroid precursors, ruling out pure erythroid leukemia. 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 02/24/2024 11:16 AM CDT [facility] Addendum electronically signed by Tanya Esquivel MD on 02/24/2024 at 11:16 AM Embedded Images 02/24/2024 11:16 AM CDT [facility] Pathology/Cytology BONE MARROW SPECIMEN / Unknown 02/18/2024 10:55 AM CDT 02/21/2024 3:32 PM CDT Miscellaneous samples (specimen) BONE MARROW SPECIMEN / Unknown 02/18/2024 10:55 AM CDT 02/21/2024 3:32 PM CDT Ignacio Hernández MD LAB - PATHO LOGY/CYTOLOGY ORDERABLES [facility] [address] [facility] [place] [address], [facility] [phone]
--- OUTSIDE RECORDS SUMMARY | 2024-04-20 03:13 | XMS_ITS | Encounter Summary ---
Author Organization [facility] NARENDRATailored Games [facility] Address [address] [place] [address] Care Team Providers Care Veterinarian Helper Name Role Phone Yaya Britt MD Primary Care Provider [phone] Reason for Visit * Reason Onset Date Comments Medication Refill 03/16/2024 Encounter Details Date Type Department Care Team (Late st Contact Info) Description 03/16/2024 Refill [facility] Oncology and Hematology - [place] [address] [place] [address] [address] [place] [address] Kaleb Tomlin MD [address] [facility] [address] [place] [address] MDS (myelodysplastic syndrome), high grade (Primary Dx) Social History Tobacco Use Types [...] as of this encounter Visit Diagnoses Diagnosis MDS (myelodysplastic syndrome), high grade- Primary High grade myelodysplastic syndrome lesions documented in this encounter Care Teams Veterinarian Helper Relationship Specialty Start Date End Date Yaya Britt MD [address] [place] [address] PCP - General Family Practice 07/13/23 documented as of this encounter
--- OUTSIDE RECORDS SUMMARY | 2024-04-20 03:13 | XMS_ITS | Encounter Summary ---
Author Organization [facility] NARENDRAPosiba [facility] Address [address] [place] [address] Care Team Providers Care Plastic Duplicator Name Role Phone Yaya Britt MD Primary Care Provider [phone] Encounter Details Date Type Department Care Team (Late st Contact Info) Description 08/05/[address] [facility] Oncology and Hematology - Josh [address] [facility] [address] [place] [address] Kaleb Tomlin MD [address] [facility] [address] [place] [address] Social History Tobacco Use Types [...] Procedure Name Priority Date/Time Associated Diagnosis Comments CBC WITH DIFFERENTIAL Routine 08/04/2023 10:36 AM CDT documented in this encounter Results * CBC WITH DIFFERENTIAL (08/04/2023 10:36 AM CDT) Blood Kaleb Tomlin MD HEMATOLOGY ORDERABLE S documented in this encounter Visit Diagnoses Not on filedocumented in this encounter Care Teams Plastic Duplicator Relationship Specialty Start Date End Date Yaya Britt MD [address] [place] [address] PCP - General Family Practice 07/13/23 documented as of this encounter
--- OUTSIDE RECORDS SUMMARY | 2024-04-20 03:13 | XMS_ITS | Encounter Summary ---
Author Organization [facility] Address [address] [place] [address] Care Team Providers Care Miter Sawyer Name Role Phone Yaya Britt MD Primary Care Provider [phone] Encounter Details Date Type Department Care Team (Late st Contact Info) Description 08/06/2023 External Device Data STL ABSTRACTION Provider, Abstract [...] on filedocumented in this encounter Care Teams Miter Sawyer Relationship Specialty Start Date End Date Yaya Britt MD [address] [place] [address] PCP - General Family Practice 07/13/23 documented as of this encounter
--- OUTSIDE RECORDS SUMMARY | 2024-04-20 03:13 | XMS_ITS | Encounter Summary ---
Author Organization [facility]ENDRAVivocha [facility] Address [address] [place] [address] Care Team Providers Care Telecommunication Systems Designer Name Role Phone Yaya Britt MD Primary Care Provider [phone] Reason for Visit * Reason Onset Date Comments Medication Refill 04/10/2024 Encounter Details Date Type Department Care Team (Late st Contact Info) Description 04/10/2024 Refill [facility] Oncology and Hematology - Josh [address] [facility] [address] [place] [address] Kaleb Tomlin MD [address] [facility] [address] [place] [address] MDS (myelodysplastic syndrome), high grade [...] encounter Miscellaneous Notes * Telephone Encounter - Consuelo Figueroa Helga - 04/10/2024 3:[address] Tomlin would like him to be on Levaquin for snf at this point with his white count so low. He is getting 2 units of blood today and oDris from [facility] pain center called over and said that patient's temperature went from 98.7 when they started the blood to 99.8. He is complaining about beingcold, and says that he is not short of breath but Doris said that he is breathing anywhere from 32-36 breaths per minute. He has had no urine output since starting the blood, and having the lasix. would like to continue with the blood transfusion and have him start Levaquin. I have let Doris know the recommendations and also talked with patients to let her know the plan and also that he would need to start the Levaquin. I asked if she had a follow up with Fabián and she said thatthey did a bone marrow biopsy but they have not heard anything from it. I let her know that she should reach out to them and ask about next steps. Abdiaziz verbalized understanding with no further questions. 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 [address] PCP - General Family Practice 07/13/23 documented as of this encounter
--- OUTSIDE RECORDS SUMMARY | 2024-04-20 03:13 | XMS_ITS | Encounter Summary ---
Author Organization [facility] NARENDRASenexx [facility] Address [address] [place] [address] Care Team Providers Care Nurse Auditor Name Role Phone Yaya Britt MD Primary Care Provider [phone] Encounter Details Date Type Department Care Team (Late st Contact Info) Description 02/16/2024 Orders Only [facility] Oncology and Hematology - Josh [address] [place] [address] [address] [place] [address] Kaleb Tomlin MD [address] [facility] [address] [place] [address] Chronic anemia (Primary Dx) Social [...] Type Priority Associated Diagnoses Orde r Schedule TYPE AND SCREEN Blood Bank Routine Chronic anemia Expected: 02/16/2024, Expires: 02/15/2025 CBC WITH DIFFERENTIAL Lab Routine Chronic anemia Expected: 02/16/2024, Expires: 02/15/2025 documented as of this encounter Visit Diagnoses Diagnosis Chronic anemia- Primary Anemia, unspecified documented in this encounter Care Teams Nurse Auditor Relationship Specialty Start Date End Date Yaya Britt MD [address] [place] [address] PCP - General Family Practice 07/13/23 documented as of this encounter
--- OUTSIDE RECORDS SUMMARY | 2024-04-20 03:13 | XMS_ITS | Encounter Summary ---
Author Organization [facility] NARENDRAvirtual tweens ltd [facility] Address [address] [place] [address] Care Team Providers Care Loan Teller Name Role Phone Yaya Britt MD Primary Care Provider [phone] Encounter Details Date Type Department Care Team (Late st Contact Info) Description 04/12/2024 Abstract [facility] Oncology and Hematology - [place] [address] [place] [address] [address] [place] [address] Kaleb Tomlin MD [address] [facility] [address] [place] [address] Social History Tobacco Use Types [...] on filedocumented in this encounter Care Teams Loan Teller Relationship Specialty Start Date End Date Yaya Britt MD [address] [place] [address] PCP - General Family Practice 07/13/23 documented as of this encounter
--- OUTSIDE RECORDS SUMMARY | 2024-04-20 03:13 | XMS_ITS | Encounter Summary ---
Author Organization [facility] Address [address] [place] [address] Care Team Providers Care Director Of Search Engine Optimization Name Role Phone Yaya Britt MD Primary Care Provider [phone] Reason for Visit * Reason Onset Date Comments Insurance Concerns 02/16/2024 Encounter Details Date Type Department Care Team (Late st Contact Info) Description 02/16/2024 Telephone [facility] Oncology and Hematology - Josh [address] [facility] [address] [place] [address] Kaleb Tomlin MD [address] [facility] [address] [place] [address] Insurance Concerns Social History Tobacco Use Types Packs/Day Years [...] Notes * Telephone Encounter - Consuelo Figueroa - 02/16/2024 4:12 PM CDT Patient was sent up to get labs and a blood transfusion and also a bone marrow biopsy. Patient's insurance is coming back inactive and they are not able to do the blood transfusion or labs at this time. Patient was advised to go to the ER to be admitted for further evaluation. Patient verbalized understanding and said that he was going to call his insurance company. documented in this encounter Plan of Treatment Not on file documented as of this encounter Visit Diagnoses Not on filedocumented in this encounter Care Teams Director Of Search Engine Optimization Relationship Specialty Start Date End Date Yaya Britt MD [address] [place] [address] PCP - General Family Practice 07/13/23 documented as of this encounter
--- OUTSIDE RECORDS SUMMARY | 2024-04-20 03:13 | XMS_ITS | Encounter Summary ---
Author Organization [facility] NARENDRADataCert [facility] Address [address] [place] [address] Care Team Providers Care Spring Upholsterer Name Role Phone Yaya Britt MD Primary Care Provider [phone] Encounter Details Date Type Department Care Team (Late st Contact Info) Description 03/22/2024 Orders Only [facility] Oncology and Hematology - Josh [address] [facility] [address] [place] [address] Kaleb Tomlin MD [address] [facility] [address] [place] [address] Social History Tobacco Use Types [...] Procedure Name Priority Date/Time Associated Diagnosis Comments COMPREHENSIVE METABOLIC PANEL Routine 03/20/2024 2:28 PM SPORTS LEADERSHIP INSTRUCTOR BASIC METABOLIC PANEL Routine 03/20/2024 1:39 PM SPORTS LEADERSHIP INSTRUCTOR documented in this encounter Results * COMPREHENSIVE METABOLIC PANEL (03/20/2024 2:28 PM SPORTS LEADERSHIP INSTRUCTOR) Blood Kaleb Tomlin MD CHEMISTRY ORDERABLES * BASIC METABOLIC PANEL (03/20/2024 1:39 PM SPORTS LEADERSHIP INSTRUCTOR) Blood Kaleb Tomlin MD CHEMISTRY ORDERABLES documented in this encounter Visit Diagnoses Not on filedocumented in this encounter Care Teams Spring Upholsterer Relationship Specialty Start Date End Date Yaya Britt MD [address] [place] [address] PCP - General Family Practice 07/13/23 documented as of this encounter
--- OUTSIDE RECORDS SUMMARY | 2024-04-20 03:13 | XMS_ITS | Encounter Summary ---
Author Organization [facility] NARENDRATransaq [facility] Address [address] [place] [address] Care Team Providers Care Asphalt Mixer Name Role Phone Yaya Britt MD Primary Care Provider [phone] Encounter Details Date Type Department Care Team (Late st Contact Info) Description 04/10/2024 Orders Only [facility] Oncology and Hematology - [place] [address] [place] [address] [address] [place] [address] Kaleb Tomlin MD [address] [facility] [address] [place] [address] MDS (myelodysplastic syndrome), high grade Social History Tobacco Use Types Packs/Day Years [...] Visit Diagnoses Diagnosis MDS (myelodysplastic syndrome), high grade High grade myelodysplastic syndrome lesions documented in this encounter Care Teams Asphalt Mixer Relationship Specialty Start Date End Date Yaya Britt MD [address] [place] [address] PCP - General Family Practice 07/13/23 documented as of this encounter
--- OUTSIDE RECORDS SUMMARY | 2024-04-20 03:13 | XMS_ITS | Encounter Summary ---
Author Organization [facility] Address [address] [place] [address] Care Team Providers Care Subsea Engineer Name Role Phone Yaya Britt MD Primary Care Provider [phone] Encounter Details Date Type Department Care Team (Late st Contact Info) Description 08/10/2023 External Device Data STL ABSTRACTION Provider, Abstract [...] on filedocumented in this encounter Care Teams Subsea Engineer Relationship Specialty Start Date End Date Yaya Britt MD [address] [place] [address] PCP - General Family Practice 07/13/23 documented as of this encounter
--- OUTSIDE RECORDS SUMMARY | 2024-04-20 03:13 | XMS_ITS | Encounter Summary ---
Author Organization [facility] NARENDRATechnical Machine [facility] Address [address] [place] [address] Care Team Providers Care Instructional Support Assistant Name Role Phone Yaya Britt MD Primary Care Provider [phone] Encounter Details Date Type Department Care Team (Late st Contact Info) Description 03/27/2024 Orders Only [facility] Oncology and Hematology - [place] [address] [place] [address] [address] [place] [address] Kaleb Tomlin MD [address] [facility] [address] [place] [address] MDS (myelodysplastic syndrome), high grade [...] lesions documented in this encounter Care Teams Instructional Support Assistant Relationship Specialty Start Date End Date Yaya Britt MD [address] [place] [address] PCP - General Family Practice 07/13/23 documented as of this encounter
--- OUTSIDE RECORDS SUMMARY | 2024-04-20 03:13 | XMS_ITS | Encounter Summary ---
Author Organization [facility] NARENDRASher[employer] [facility] Address [address] [place] [address] Care Team Providers Care Proof Press Operator Name Role Phone Yaya Britt MD Primary Care Provider [phone] Encounter Details Date Type Department Care Team (Late st Contact Info) Description 04/11/2024 Orders Only [facility] Oncology and Hematology - Josh [address] [facility] [address] [place] [address] Kaleb Tomlin MD [address] [facility] [address] [place] [address] Social History Tobacco Use Types [...] Associated Diagnosis Comments CBC WITH DIFFERENTIAL Routine 04/10/2024 4:17 PM RUBBER TUBING SPLICER documented in this encounter Results * CBC WITH DIFFERENTIAL (04/10/2024 4:17 PM RUBBER TUBING SPLICER) Blood Kaleb Tomlin MD HEMATOLOGY ORDERABLE S documented in this encounter Visit Diagnoses Not on filedocumented in this encounter Care Teams Proof Press Operator Relationship Specialty Start Date End Date Yaya Britt MD [address] [place] [address] PCP - General Family Practice 07/13/23 documented as of this encounter
--- OUTSIDE RECORDS SUMMARY | 2024-04-20 03:13 | XMS_ITS | Encounter Summary ---
Author Organization [facility] [employer] [facility] Address [address] [place] [address] Care Team Providers Care Manager Research And Development Name Role Phone Yaya Britt MD Primary Care Provider [phone] Reason for Visit * Reason Comments Follow Up Encounter Details Date Type Department Care Team (Late st Contact Info) Description 02/16/2024 3:30 PM CDT Office Visit [facility] Oncology and Hematology - [place] [address] [place] [address] [facility] [address] [place] [address] Kaleb Tomlin MD [address] [facility] [address] [place] [address] Chronic anemia (Primary Dx) Social [...] Sign Reading Time Taken Comments Blood Pressure 104/63 02/16/2024 3:11 PM CDT Pulse 70 02/16/2024 3:11 PM CDT Temperature 36.6 ??C (97.8 ??F) 02/16/2024 3:11 PM CD T Respiratory Rate 20 02/16/2024 3:11 PM CDT Oxygen Saturation 93% 02/16/2024 3:11 PM CDT Inhaled Oxygen Concentration - - Weight 87.5 kg (193 lb) 02/16/2024 3:11 PM CDT Height - - Body Mass Index 28.5 08/04/2023 1:19 PM CDT documented in this encounter Progress Notes * Kaleb Tomlin MD - 02/16/2024 3:59 PM CDT HEMATOLOGY / ONCOLOGY PROGRESS NOTE Patient Identification: Name: Taiwo Palacios Age: 63 y.o. Sex: male : 1960 DIAGNOSIS Pancytopenia CURRENT TREATMENT Expectant TREATMENT HISTORY SUBJECTIVE Patient came into the office for follow-up visit after his initial consultation done in August. According patient he lost follow-up. He is complaining of tiredness and fatigue but denies any bleeding.Denies any fevers and chills. No other new complaint. Review of system Constitutional: Patient did not mention fevers, sweats, complain of tiredness and fatigue HEENT: Patient did not mention sinus congestion, hearing or vision problems Respiratory: Patient did not mention cough, dyspnea, wheeze Cardiovascular: Patient did not mention chest pain, exertional chest pressure/discomfort, nausea, syncope, shortness of breath GI: Patient did not mention constipation, diarrhea, dsyphagia, reflux symptoms, vomiting, melena : Patient did not mention dysuria, frequency, incontinence, urgency Integumentary system: no lymphadenopathy, sweats, flushing Musculoskeletal: Patient not mention: myalgia, arthralgia Neurological: Patient did not mention blurry or disturbed vision, numbness/weakness, dizziness Skin: No lumps, bumps or rashes. Objective: Vital signs in last 24 hours: As per nursing note Exam: General appearance: alert, cooperative, no distress, appears stated age Head: normocephalic, without obvious abnormality, atraumatic Eyes: conjunctivae/corneas clear, EOM's intact Ears: normal external ear canals AU Nose: Nares normal. Septum midline. Mucosa normal. No drainage or sinus tenderness Throat: Lips, mucosa, and tongue normal. Teeth and gums normal Neck: supple, symmetrical, trachea midline. Lungs: clear to auscultation bilaterally Heart: regular rate and rhythm, S1, S2 normal, no murmur, click, rub or gallop Abdomen: soft, non-tender. Bowel sounds normal. No masses, No organomegaly Extremities: extremities normal, atraumatic, no cyanosis or edema Skin: Skin color, texture, turgor normal. No rashes or lesions Lymph nodes: No lymphadenopathy Neuro: No obvious focal deficit PATH LABS Labs from February 15 showed WBC 1.9 hemoglobin 6.3 platelet unable to calculate due to aggregation.ANC 200 vitamin B12 more than 2000 iron 68 saturation 33 ferritin 1504 creatinine 0.8 serum total protein 8.8 @IMAGEIMP@ Assessment: Plan: There are no problems to display for this patient. Pancytopenia. Patient lost follow-up after initial consultation in August 2023 and just showed up today. Labs showed significant pancytopenia much worsened than previous reading. Other labs showed elevated vitamin B12 and ferritin. Serum protein is elevated. I am concerned about bone marrow disorderlike leukemia and myelodysplastic syndrome. My plan is to perform bone marrow aspiration and biopsy. We will provide him 2 units of packed red blood cell. Neutropenia prophylaxis. I will start him on Levaquin 500 milligram a day for 10 days. Elevated serum protein. Will check serum protein electrophoresis with immunofixation. Follow-up after blood transfusion and bone marrow biopsy. ? TOBACCO COUNSELING He is not a tobacco/nicotine user. 02/16/2024 Kaleb Tomlin MD documented in this encounter Plan of Treatment Scheduled Orders Name Type Priority Associated Diagnoses Orde r Schedule IMMUNOGLOBULINS IGG IGA IGM Lab Routine Chronic anemia Expected: 02/16/2024, Expires: 02/15/2025 KAPPA/LAMBDA, FREE LIGHT CHAINS Lab Routine Chronic anemia Expected: 02/16/2024, Expires: 02/15/2025 PROTEIN ELECTROPHORESIS W/REFLEX,SERUM Lab Routine Chronic anemia Expected: 02/16/2024, Expires: 02/15/2025 documented as of this encounter Visit Diagnoses Diagnosis Chronic anemia- Primary Anemia, unspecified documented in this encounter Care Teams Manager Research And Development Relationship Specialty Start Date End Date Yaya Britt MD [address] [place] [address] PCP - General Family Practice 07/13/23 documented as of this encounter
--- OUTSIDE RECORDS SUMMARY | 2024-04-20 03:13 | XMS_ITS | Encounter Summary ---
Author Organization [facility] [employer] [facility] Address [address] [place] [address] Care Team Providers Care Umbrella Frame Maker Name Role Phone Yaya Britt MD Primary Care Provider [phone] Encounter Details Date Type Department Care Team (Late st Contact Info) Description 04/12/2024 Orders Only [facility] Oncology and Hematology - Josh [address] [facility] [address] [place] [address] Kaleb Tomlin MD [address] [facility] [address] [place] [address] Social History Tobacco Use Types [...] Associated Diagnosis Comments COMPREHENSIVE METABOLIC PANEL Routine 04/10/2024 2:46 PM CNC MECHANIC documented in this encounter Results * COMPREHENSIVE METABOLIC PANEL (04/10/2024 2:46 PM CNC MECHANIC) Blood Kaleb Tomlin MD CHEMISTRY ORDERABLES documented in this encounter Visit Diagnoses Not on filedocumented in this encounter Care Teams Umbrella Frame Maker Relationship Specialty Start Date End Date Yaya Britt MD [address] [place] [address] PCP - General Family Practice 07/13/23 documented as of this encounter
--- OUTSIDE RECORDS SUMMARY | 2024-04-20 03:13 | XMS_ITS | Encounter Summary ---
Author Organization [facility] [employer] [facility] Address [address] [place] [address] Care Team Providers Care Document Reviewer Name Role Phone Yaya Britt MD Primary Care Provider [phone] Encounter Details Date Type Department Care Team (Late st Contact Info) Description 03/17/2024 Orders Only [facility] Oncology and Hematology - Josh [address] [place] [address] [address] [place] [address] Kaleb Tomlin MD [address] [facility] [address] [place] [address] MDS (myelodysplastic syndrome), high grade [...] Type Priority Associated Diagnoses Orde r Schedule COMPREHENSIVE METABOLIC PANEL Lab Routine MDS (myelodysplastic syndrome), high grade Every Two Weeks for 99 Occurrences starting 03/17/2024 until 03/17/2025 documented as of this encounter Visit Diagnoses Diagnosis MDS (myelodysplastic syndrome), 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 [address] PCP - General Family Practice 07/13/23 documented as of this encounter
--- OUTSIDE RECORDS SUMMARY | 2024-04-20 03:13 | XMS_ITS | Encounter Summary ---
Author Organization [facility] Address [address] [place] [address] Care Team Providers Care Category Specialist Name Role Phone Yaya Britt MD Primary Care Provider [phone] Reason for Referral * Eval and Treat (Routine) - Closed Specialty Diagnoses / Procedures Referred By Contac t Referred To Contact Surgery Diagnoses MDS (myelodysplastic syndrome), high grade Procedures NH OFFICE/OUTPATIENT ESTABLISHED MOD MDM 30 MIN NH OFFICE/OUTPATIENT NEW MODERATE MDM 45 MINUTES Kaleb Tomlin MD [address] [place] [address] Nitesh Keith, [address] [place] [address] [address] [place] [address] Referral ID Status Reason Start Date Expiration Date V isits Requested Visits Authorized [id number] Closed [facility] CTS 02/25/2024 02/24/2025 1 1 * Eval and Treat (Routine) - Closed Specialty Diagnoses / Procedures Referred By Contac t Referred To Contact Oncology Diagnoses MDS (myelodysplastic syndrome), high grade Procedures [place] OFFICE/OUTPATIENT ESTABLISHED MOD MDM 30 MIN NH OFFICE/OUTPATIENT NEW MODERATE MDM 45 MINUTES Kaleb Tomlin MD [address] [place] [address] Referral ID Status Reason Start Date Expiration Date V isits Requested Visits Authorized [id number] Closed [facility] CTS 02/25/2024 02/25/2025 1 1 * Eval and Treat (Routine) - Closed Specialty Diagnoses / Procedures Referred By Taco t Referred To Contact Oncology Diagnoses Chronic anemia Procedures NH OFFICE/OUTPATIENT ESTABLISHED MOD MDM 30 MIN NH OFFICE/OUTPATIENT NEW MODERATE MDM 45 MINUTES Kaleb Tomlin MD [address] [facility] [address] [place] [address] Referral ID Status Reason Start Date Expiration Date V isits Requested Visits Authorized [id number] Closed [facility] CTS 02/25/2024 02/24/2025 1 1 Reason for Visit * Reason Comments Cancer Follow Up Encounter Details Date Type Department Care Team (Late st Contact Info) Description 02/25/2024 11:30 AM CDT Office Visit [facility] Oncology and Hematology - Josh [address] [place] [address] [address] [place] [address] [place] [address] [place] [address] [address] [place] [address] Chronic anemia (Primary Dx); MDS (myelodysplastic syndrome), high grade Social History Tobacco Use Types Packs/Day Years Used Date Smoking Tobacco: Former Cigarettes 2 30 Q uit: 08/04/2007 Smokeless Tobacco: Never Tobacco Cessation:Counseling Given: Not Answered Alcohol Use Standard Drinks/Week Comments Never 0 (1 standard drink = 0.6 oz pur e alcohol) Sex and Gender Information Value Date Recorded Sex Assigned at Not on file Gender Identity Not on file Sexual Orientation Not on file documented as of this encounter Last Filed Vital Signs Vital Sign Reading Time Taken Comments Blood Pressure 118/65 02/25/2024 11:29 AM CDT Pulse 94 02/25/2024 11:29 AM CDT Temperature 36.7 ??C (98 ??F) 02/25/2024 11:29 AM CDT Respiratory Rate 18 02/25/2024 11:29 AM CDT Oxygen Saturation 97% 02/25/2024 11:29 AM CDT Inhaled Oxygen Concentration - - Weight - - Height - - Body Mass Index - - documented in this encounter Progress Notes * Kaleb Tomlin MD - 02/25/2024 3:35 PM CDT HEMATOLOGY / ONCOLOGY PROGRESS NOTE Patient Identification: Name: Taiwo Palacios Wes Age: 63 y.o. 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 CURRENT TREATMENT Expectant TREATMENT HISTORY SUBJECTIVE Patient came into the office for follow-up visit after recent discharge from the hospital. He remains tired and fatigue but denies any bleeding and bruising. No chest pain and shortness of breath. Noother new complaints. Review of system Constitutional: Patient did not [...] dizziness Skin: No lumps, bumps or rashes. 12 point review of system was reviewed Objective: Vital signs in last 24 hours: [...] No lymphadenopathy Neuro: No obvious focal deficit Exam as above PATH LABS Labs from February 15 showed WBC 1.9 hemoglobin 6.3 platelet unable to calculate due to aggregation.ANC 200 vitamin B12 more than 2000 iron 68 saturation 33 ferritin 1504 creatinine 0.8 serum total protein 8.8 Labs from February 23 showed WBC 4.3 hemoglobin 7.9 platelet 22,000 Assessment: Plan: There are no problems to display for this patient. 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 Bone marrow biopsy results showed blast count of about 7 -15%. I have discussed this finding with patient and the in detail and informed about the prognosis of T p53 mutated MDS/AML. I will refer him to [facility] for bone marrow transplant evaluation. In the meantime I will start him on decitabine. He will be referred for chemotherapy teaching and Mediport placement. We will continue to provide him supportive blood transfusion. Patient will have weekly CBC done in my office. 02/25/2024 Kaleb Tomlin MD documented in this encounter Plan of Treatment Scheduled Referrals Name Type Priority Associated Diagnoses Order Schedule AMB REFERRAL TO ONCOLOGY Outpatient Referral Routine Chronic anemia Ordered: 02/25/2024 AMB REFERRAL TO CHEMO TEACHING Outpatient Referral Routine MDS (myelodysplastic syndrome), high grade Ordered: 02/25/2024 AMB REFERRAL TO COLORECTAL SURGERY Outpatient Referral Routine MDS (myelodysplastic syndrome), high grade Ordered: 02/25/2024 documented as of this encounter Visit Diagnoses Diagnosis Chronic anemia- Primary Anemia, unspecified MDS (myelodysplastic syndrome), high grade High grade myelodysplastic syndrome lesions documented in this encounter Care Teams Category Specialist Relationship Specialty Start Date End Date Yaya Britt MD [address] [place] [address] PCP - General Family Practice 07/13/23 documented as of this encounter
--- OUTSIDE RECORDS SUMMARY | 2024-04-20 03:13 | XMS_ITS | Encounter Summary ---
Author Organization [facility] Address [address] [place] [address] Care Team Providers Care Carpenter Assembler Name Role Phone Yaya Britt MD Primary Care Provider [phone] Encounter Details Date Type Department Care Team (Late st Contact Info) Description 02/16/2024 Orders Only [facility] Oncology and Hematology - Josh [address] [place] [address] Kaleb Tomlin MD [address] [facility] [address] [place] [address] Social History Tobacco Use Types [...] Associated Diagnosis Comments CBC WITH DIFFERENTIAL Routine 02/16/2024 12:40 PM CDT documented in this encounter Results * CBC WITH DIFFERENTIAL (02/16/2024 12:40 PM CDT) Blood Kaleb Tomlin MD HEMATOLOGY ORDERABLE S documented in this encounter Visit Diagnoses Not on filedocumented in this encounter Care Teams Carpenter Assembler Relationship Specialty Start Date End Date Yaya Britt MD [address] [place] [address] PCP - General Family Practice 07/13/23 documented as of this encounter
--- OUTSIDE RECORDS SUMMARY | 2024-04-20 03:13 | XMS_ITS | Encounter Summary ---
Author Organization [facility] [employer] [facility] Address [address] [place] [address] Care Team Providers Care Fashion Show Director Name Role Phone Yaya Britt MD Primary Care Provider [phone] Encounter Details Date Type Department Care Team (Late st Contact Info) Description 04/04/2024 Orders Only [facility] Oncology and Hematology - Josh [address] [facility] [address] [place] [address] Kaleb Tomlin MD [address] [facility] [address] [place] [address] Social History Tobacco Use Types [...] Associated Diagnosis Comments CBC WITH DIFFERENTIAL Routine 04/03/2024 10:59 AM DIRECTOR SEMICONDUCTOR documented in this encounter Results * CBC WITH DIFFERENTIAL (04/03/2024 10:59 AM DIRECTOR SEMICONDUCTOR) Blood Kaleb Tomlin MD HEMATOLOGY ORDERABLE S documented in this encounter Visit Diagnoses Not on filedocumented in this encounter Care Teams Fashion Show Director Relationship Specialty Start Date End Date Yaya Britt MD [address] [place] [address] PCP - General Family Practice 07/13/23 documented as of this encounter
--- OUTSIDE RECORDS SUMMARY | 2024-04-20 03:13 | XMS_ITS | Encounter Summary ---
Author Organization [facility] Address [address] [place] [address] Phone Care Team Providers Care Traffic Clerk Name Role Phone Yaya Britt MD Primary Care Provider Kaleb Tomlin MD Unavailable Evan Mai MD Unavailable [phone] Encounter Details Date Type Department Care Team (Late st Contact Info) Description 03/28/2024 Orders Only [facility] [address] [place] [address] Evan Mai MD [address] [place], [place] [id number] 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 having achieved remission [...] on file Legal Sex Male 2:01 AM COMPUTER INSTALLER Gender Identity Not on file Sexual Orientation Not on file documented as of this encounter Plan of Treatment Not on file documented as of this encounter Procedures Procedure Name Priority Date/Time Associated Diagnosis Comments CYTOGENETICS Routine 03/27/2024 2:13 PM COMPUTER INSTALLER 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 having achieved remission (HCC) CHROMOSEQ - HEME GENETIC PROFILING (WGS) WITH INTERPRETATION Routine 03/27/2024 2:13 PM COMPUTER INSTALLER 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 having achieved remission (HCC) MYELOSEQ HEME NGS PANEL WITH INTERPRETATION Routine 03/27/2024 2:13 PM COMPUTER INSTALLER 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 having achieved remission (HCC) documented in this encounter Results * ChromoSeq - Heme Genetic Profiling (WGS) with interpretation Bone marrow (03/27/2024 2:13 PM COMPUTER INSTALLER) Bone marrow (Bone Marrow Biopsy) 03/27/2024 2:13 PM COMPUTER INSTALLER 03/28/2024 9:45 AM COMPUTER INSTALLER Narrative [facility] - CYTOGENETICS - 04/11/2024 10:20 PM COMPUTER INSTALLER [facility] [address] [place], [place] [id number] Final Report Patient Name: KELLEE TAPIA SR. Address: [address] [place] [address] Gender: M : 1960 (Age: 63) Accessioned: 03/28/2024 Taken: 03/27/2024 Received: 03/28/2024 Physician(s): Evan Morataya MD Service: [facility] Location: [facility] #: [id number] Patient Type: [facility] ChromoSeq Molecular DiagnosticsReported:04/11/2024 Tissue type: Bone [...] identified, consistent with the corresponding cytogenetic studies ([id number]) and a complex karyotype. In addition, a [...] Mai MD LAB PATHOLOGY ORDERABLES Final Result [facility] - CYTOGENETICS [address] [place] [address] * Diagnosis MyeloSeq Heme NGS Panel with Interpretation Bone marrow (03/27/2024 2:13 PM COMPUTER INSTALLER) Bone marrow (Bone Marrow Biopsy) 03/27/2024 2:13 PM COMPUTER INSTALLER 03/28/2024 9:45 AM COMPUTER INSTALLER Narrative [facility] - CYTOGENETICS - 04/12/2024 10:35 PM COMPUTER INSTALLER [facility] [address] [place] [address] Final Report Patient Name: KELLEE TAPIA SR. Address: [address] [place] [address] Gender: M : 1960 (Age: 63) Accessioned: 03/28/2024 Taken: 03/27/2024 Received: 03/28/2024 Physician(s): Evan Morataya MD Service: [facility] Location: [facility] #: [id number] Patient Type: [facility] MyeloSeq Molecular DiagnosticsReported:04/12/2024 Varients Detected: ? [...] presents for evaluation. Corresponding bone marrow biopsy ([id number]) shows a markedly hypercellular marrow with 5% blasts and megakaryocytic dysplasia. Corresponding cytogenetic studies ([id number]) show a complex karyotype. Specimen site: Bone marrow Variant Detail: ? Gene ? Location (GR38) ? Reference allele ? Variant allele ? Transcript:Coding change ? Population Frequency* ? TP53 ? [id number] ? C ? T ? [id number]:c.517G>A ? none*The population allele frequency represents the [...] the CLIA Licensed Environment laboratory at the [facility] [place] at [facility] ([facility], CLIA #[id number], CAP #[id number]), Dr. Sammy Johnson MD, PhD, [facility], Advanced Developer. [address] [facility], [address] [place], [place] [address] . The [facility] laboratory is regulated under CLIA as certified to perform high-complexity testing. Interpretation of sequencing results and case sign out is performed by Pathology and Immunology faculty in the Division of Genomic and Molecular Pathology ([facility], CLIA #[id number], CAP #[id number]) Dr. Sujatha Littlejohn Ph.D., Advanced Developer. Clinical Genomics Laboratory, [facility], [facility] [address] [address] [phone] . The [facility] Laboratory is regulated [...] 30GBases of sequencing data generated on an [employer] X Plus. This test has been validated according to CAP guidelines for the detection of single nucleotide variants (SNVs) and indels (max validated size 117bp). This assay has two limits of detection: for new variants (not previously reported by [employer]) sensitivity is limited to 2% VAF; for [...] Such information and correlations are subject to exchange administrator time in response to future scientific and [...] Mai MD LAB PATHOLOGY ORDERABLES Final Result [facility] CYTO[facility]ETICS [address] [place] [address] * Cytogenetics Bone marrow (03/27/2024 2:13 PM COMPUTER INSTALLER) Bone marrow (Bone Marrow Biopsy) 03/27/2024 2:13 PM COMPUTER INSTALLER 03/27/2024 2:13 PM COMPUTER INSTALLER Narrative [facility] - CYTOGENETICS - 04/11/2024 2:17 PM COMPUTER INSTALLER EPIC results best viewed via link to PDF [facility] Department of Pathol [address] [place] [address] ? Patient Information ? Name: ??KELLEE TAPIA SR. ? Gender: ??M ? : ??1960 (Age: 63) ? Tissue: ??Bone Marrow w/ FISH ? Visit Information ? Hospital #: ? [id number] ? Facility: ? [facility] ? Service: ? [facility] ? Location: ? UNKNOWN ? Patient Type: ? [facility]-EPIC ? Specimen Information: ? Culture #: ??[id number] ? Date Collected: ??03/27/2024 ? Date Accessioned: [...] Resolution: ??400Subculture: ?? 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 LIMITED COMPLEX KARYOTYPE FISH FINDINGS: ?DELETION OF EGR1 (5q) - 18.5% ?TRISOMY OF RUNX1 (21q) - 8.5% ?MONOSOMY OF ASS1/ABL1 (9q) - 16.5% ?NO EVIDENCE OF MECOM REARRANGEMENT ?NO EVIDENCE OF DELETION/MONOSOMY OF L6B068 (7q) ?NO EVIDENCE OF KVKX5S3::RUNX1, BCR::ABL1, KMT2A, PML::GRANT ? OR CBFB REARRANGEMENT INTERPRETATION: Only six metaphase cells were obtained and analyzed from an unstimulated culture. ??All six metaphase cells analyzed revealed the clonal aberrations described above in a composite karyotype (cp). ??Due to jgkv-dv-wpjm heterogeneity, the karyotypic description is composite, listing [...] Hybridization (FISH) analysis are performed using the [employer] Imaging System. Report Electronically Reviewed and Signed Out By Hima Bernal, PhD, FACMGDate Reported: ??4Associate Professor, Division of Genomic & Molecular Pathology FLUORESCENCE IN-SITU HYBRIDIZATION [FISH] Karyotype: nuc bree(C4O473/Z8I7285m1,EGR1x1)[37/200],(MLMR4A8g2,DXQQ2h8)[17/200],(ASS1x1,ABL1x1, BCRx2 )[33/200], (V8S376,KMT2A,PML,CBFB,GRANT)x2[200] Diagnosis: FISH FINDINGS: ?DELETION OF EGR1 (5q) - 18.5% ?TRISOMY OF RUNX1 (21q) - 8.5% ?MONOSOMY OF ASS1/ABL1 (9q) - 16.5% ?NO EVIDENCE OF DELETION/MONOSOMY OF G7H098 (7q) ? NO EVIDENCE OF PTGM7Z0::RUNX1, BCR::ABL1, KMT2A, PML::GRANT OR CBFB ? REARRANGEMENT Pending FISH: ?FISH for MECOM INTERPRETATION: FISH analysis was performed with a panel of [employer] and [employer] probes for AML and is interpreted as ABNORMAL for the EGR1, MCHD2C5::RUNX1, and BCR::ABL1 probe sets. 1) FISH evaluation for a 5q deletion was performed on nuclei with the EGR1,P6Q076/J2M8809 Dual Color Probe ([employer] for EGR1 at 5q31.1 and the control F2P702/E9O4272 at 5p15.31 and is interpreted as ABNORMAL. ??One EGR1 hybridization signal and two A9Z578/U3Z3034 control hybridization signals were observed in 37/200 nuclei, which exceeds the normal range (up to 3.1%) established for this probe in the Clinical Genomics Laboratory at [facility]. 2) FISH evaluation for a XTDX8E2::RUNX1 rearrangement was performed on nuclei with the LSI OSFW7F4::RUNX1 Dual Color, Dual Fusion Translocation Probe ([employer] for JKMQ2R1(ETO) at 8q22 and RUNX1(AML1) at 21q22 and is interpreted as ABNORMAL, although an DYRY9Y2::RUNX1 rearrangement was not detected. ??An abnormal hybridization pattern consisting of two DDTS0C8 hybridization signals and three RUNX1 hybridization signals was observed in 17/200 nuclei, indicative of trisomy for the corresponding region on chromosome 21. ??This value exceeds the normal range (up to 1%) established for this probe in the Clinical Genomics Laboratory at [facility]. ?? 3) FISH evaluation for [...] probe in the Clinical Genomics Laboratory at [facility]. 4) FISH evaluation for a 7q deletion was performed on nuclei with the LSI M9P077/D7Z1 Dual Color Probe ([employer] for N0A162 at 7q31 and the control D7Z1 at 7p11.1-q11.1 and is interpreted as NORMAL. ??Two Q5I112 hybridization signals and two D7Z1 control hybridization signals were observed in 200/200 nuclei, which is within the normal range established for this probe set in the Clinical Genomics Laboratory at [facility]. ??Up to 1% of cells in normal samples can show an apparent 7q deletion using this probe. ??A normal U5Y595 FISH finding can result from the absence of a 7q deletion, from a 7q deletion that does not involve the region to which this probe hybridizes or from an insufficient number of neoplastic cells in the specimen. 5) FISH evaluation for an KMT2A (MLL) rearrangement was performed on nuclei with the LSI KMT2A Dual Color, Break Apart Rearrangement Probe ([employer] at 11q23 and is interpreted as NORMAL. ??No rearrangement was observed in 200/200 nuclei, which is within the normal range established for this probe in the Clinical Genomics Laboratory at [facility]. ??Up to 1% of cells [...] Dual Color, Dual Fusion Translocation Probe ([employer] for PML at 15q24 and GRANT at 17q21 and is interpreted as NORMAL. ??No rearrangement was observed in 190/200 nuclei, which is within the normal range established for this probe in the [facility]omics Laboratory at [facility]. Variant signal pattern was observed [...] probe in the Clinical Genomics Laboratory at [facility]. ??Up to 2% of cells [...] developed and its performance characteristics determined by [facility]. It has not been cleared or approved by the FDA. The laboratory is regulated under CLIA as qualified to perform high-complexity testing. This test is used for clinical purposes. It should not be regarded as investigational or for research. Chromosome analysis and Fluorescence In Situ Hybridization (FISH) analysis are performed using the [employer] Imaging System. Report Electronically Reviewed and Signed Out By Asim Bear, PhD, FACMGDate Reported: ??4Assistant Professor, Division of Genomic & Molecular Pathology REFLEX FLUORESCENCE IN-SITU HYBRIDIZATION [FISH] Karyotype: nuc bree(MECOMx2)[200] Diagnosis: ?? FISH FINDINGS: ?NO EVIDENCE OF MECOM (3q) REARRANGEMENT INTERPRETATION: FISH evaluation for an EVI1(MECOM) rearrangement was performed on nuclei with the BETHANY Dual Color, Break Apart Rearrangement Probe ([employer]) at 3q26 and is interpreted as NORMAL. ??No rearrangement was observed in 199/200 nuclei, which is within the normal range established for this probe in the Clinical Genomics Laboratory at [facility]. ??Up to 2% of cells [...] developed and its performance characteristics determined by [facility]. It has not been cleared or approved by the FDA. The laboratory is regulated under CLIA as qualified to perform high-complexity testing. This test is used for clinical purposes. It should not be regarded as investigational or for research. Chromosome analysis and Fluorescence In Situ Hybridization (FISH) analysis are performed using the [employer] Imaging System. Report Electronically Reviewed and Signed Out By Margaret Ratliff, PhD Date Reported: ??4Assistant Professor, Division of Genomic & Molecular Pathology Evan Mai MD LAB GENETIC TESTING Final Resu lt [facility] [address] [place] [address] documented in this encounter Visit Diagnoses Diagnosis 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 having achieved remission (HCC) documented in this encounter Care Teams Traffic Clerk Relationship Specialty Start Date End Date Yaya Britt MD PCP - General 07/31/16 Kaleb Tomlin MD [address] [address] Referring Physician Hematology 02/29/24 Evan Mai MD [address] [facility] [place] [address] Consulting Physician Internal Medicine 03/01/24 documented as of this encounter
--- OUTSIDE RECORDS SUMMARY | 2024-04-20 03:13 | XMS_ITS | Referral Summary ---
Author Organization [facility] Address [address] [place] [address] Care Team Providers Care Blood Bank Attendant Name Role Phone Yaya Britt MD Primary Care Provider [phone] Kaleb Tomlin MD Unavailable [phone] Evan Mai MD Unavailable [phone] Encounters Date Type Department Care Team Description 03/28/2024 Orders Only [facility] [address] [place] [address] Evan Mai MD 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 having achieved remission (HCC) 03/27/2024 12:30 PM LACE FINISHER Clinical Support [facility] - Lab Collection [facility] [address] [address] 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 having achieved remission (HCC) 03/27/2024 1:30 PM LACE FINISHER Infusion [facility] - Infusion [address] [facility], [place] Floor [address] [place] [address] 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 having achieved remission (HCC) 03/21/2024 12:45 PM LACE FINISHER Lab [facility] - Lab Collection [address] [facility] [place] [place] Floor [address] [place] [address] 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 having achieved remission (HCC) 03/21/2024 Orders Only [facility] Bone Marrow Transplant [address] [facility] 6 [place] [address] Donis Adams RN 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 having achieved remission (HCC) (Primary Dx) 03/21/2024 5:30 PM LACE FINISHER Infusion [facility] - Infusion [address] [facility] [place], [place] Floor 6 [place] [address] Anemia, unspecified type (Primary Dx); 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 having achieved remission (HCC) 03/21/2024 3:30 PM LACE FINISHER Infusion [facility] - Infusion [address] [facility] [place] [place] Floor [address] [place] [address] 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 having achieved remission (HCC) 03/21/2024 1:40 PM LACE FINISHER Office Visit [facility] Bone Marrow Transplant [address] [place] [address] [phone] Evan Mai MD MDS (myelodysplastic syndrome) (HCC) (Primary Dx); 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 having achieved remission (HCC); TP53 gene mutation positive; 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); Rheumatoid arthritis involving multiple sites, unspecified whether rheumatoid factor present (HCC); Atrial fibrillation, unspecified type (HCC); Tobacco consumption 03/20/2024 Orders Only [facility] Bone Marrow Transplant [address] [place] [address] [phone] Donis Adams RN 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 having achieved remission (HCC) (Primary Dx) 03/16/2024 Telephone [facility] Bone Marrow Transplant [address] [place] [address] [phone] Donis Adams RN 03/01/2024 Orders Only [facility] Bone Marrow Transplant [address] [place] [address] [phone] Evan Mai MD 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 [...] 1 tablet (88 mcg total) by mouth crystal finisher before breakfast Active metoprolol XL (TOPROL-XL) 50 [...] failure with mildly reduced ejection fraction (HFmrEF) ([facility]),Rheumatoid arthritis involving multiple sites, unspecified whether rheumatoid factor present ([facility]),Atrial fibrillation, unspecified type ([facility]) Take by mouth Active acyclovir (ZOVIRAX) 400 mg tabletIndications: Heart failure with mildly reduced ejection fraction (HFmrEF) ([facility]),Rheumatoid arthritis involving multiple sites, unspecified whether rheumatoid factor present ([facility]),Atrial fibrillation, unspecified type ([facility]) Take 1 tablet (400 mg total) by mouth every 4 (four) hours while awake 03/16/20 24 Active Airsupra 90-80 mcg/actuation HFA aerosol inhalerIndications :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),Rheumatoid arthritis involving multiple sites, unspecified whether rheumatoid factor present ([facility]),Atrial fibrillation, unspecified type ([facility]) 03/01/20 24 Active ALPRAZolam (XANAX) 0.25 mg [...] Atrial fibrillation (CMS/HCC) 08/06/2023 Rheumatoid [facility] daytone sites without rheumatoid factor (CMS/HCC) 01/15/2017 High [...] on file Legal Sex Male 2:01 AM LACE FINISHER Gender Identity Not on file Sexual Orientation Not on file Last Filed Vital Signs Vital Sign Reading Time Taken Comments Blood Pressure 108/65 03/27/2024 2:29 PM LACE FINISHER Pulse 72 03/27/2024 2:29 PM LACE FINISHER Temperature 36.9 ??C (98.4 ??F) 03/27/2024 1:35 PM CS T Respiratory Rate 18 03/27/2024 2:29 PM LACE FINISHER Oxygen Saturation 96% 03/27/2024 2:29 PM LACE FINISHER Inhaled Oxygen Concentration - - Weight 92.8 kg (204 lb 9.4 oz) 03/27/2024 1:35 P M LACE FINISHER Height 172.7 cm (5' 8 ) 12/24/2023 9:27 AM CDT Body Mass Index 31.11 12/24/2023 9:27 AM CDT Plan of Treatment Not on file Procedures Procedure Name Priority Date/Time Associated Diagnosis Comments CHROMOSEQ - HEME GENETIC PROFILING (WGS) WITH INTERPRETATION Routine 03/27/2024 2:13 PM LACE FINISHER 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 having achieved remission (HCC) MYELOSEQ HEME NGS PANEL WITH INTERPRETATION Routine 03/27/2024 2:13 PM LACE FINISHER 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 having achieved remission (HCC) SURGICAL PATHOLOGY Routine 03/27/2024 2: 13 PM LACE FINISHER 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 having achieved remission (HCC) FLOW LEUKEMIA/LYMPHOMA Routine 2:13 PM LACE FINISHER 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 having achieved remission (HCC) CYTOGENETICS Routine 03/27/2024 2:13 PM LACE FINISHER 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 having achieved remission (HCC) CYTOGENETICS TRACKING ORDER Routine 03/27/2024 2:13 PM LACE FINISHER 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 having achieved remission (HCC) HEMATOLOGIC MOLECULAR ALGORITHM Routine 03/27/2024 2:13 PM LACE FINISHER 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 having achieved remission (HCC) MYELOSEQ TRACKING ORDER Routine 03/27/2024 2:13 PM LACE FINISHER 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 having achieved remission (HCC) CHROMOSEQ TRACKING ORDER Routine 03/27/2024 2:13 PM LACE FINISHER 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 having achieved remission (HCC) EGFR Routine 03/27/2024 1:23 PM LACE FINISHER 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 having achieved remission (HCC) MANUAL DIFFERENTIAL Routine 03/27/2024 1 :23 PM LACE FINISHER 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 having achieved remission (HCC) CBC WITH AUTO DIFFERENTIAL Routine 03/27/2024 1:23 PM LACE FINISHER 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 having achieved remission (HCC) COMPREHENSIVE METABOLIC PANEL Routine 03/27/2024 1:23 PM LACE FINISHER 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 having achieved remission (HCC) TRANSFUSE RED BLOOD CELLS Timed 03/21/2024 6:29 PM LACE FINISHER 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 having achieved remission (HCC) Anemia, unspecified type TRANSFUSE RED BLOOD CELLS Timed 03/21/2024 4:55 PM LACE FINISHER 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 having achieved remission (HCC) Anemia, unspecified type B CHECK SAMPLE STAT 03/21/2024 2:48 PM LACE FINISHER PREPARE RBC Timed 03/21/2024 2:46 PM LACE FINISHER 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 having achieved remission (HCC) Anemia, unspecified type DIFFERENTIAL AUTO STAT 03/21/2024 1:0 5 PM LACE FINISHER 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 having achieved remission (HCC) CBC WITH AUTO DIFFERENTIAL STAT 03/21/2024 1:05 PM LACE FINISHER 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 having achieved remission (HCC) EGFR STAT 03/21/2024 12:59 PM LACE FINISHER 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 having achieved remission (HCC) URIC ACID Routine 03/21/2024 12:59 PM LACE FINISHER 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 having achieved remission (HCC) MAGNESIUM Routine 03/21/2024 12:59 PM LACE FINISHER 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 having achieved remission (HCC) PHOSPHORUS Routine 03/21/2024 12:59 PM LACE FINISHER 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 having achieved remission (HCC) TYPE AND SCREEN STAT 03/21/2024 12:59 PM LACE FINISHER 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 having achieved remission (HCC) COMPREHENSIVE METABOLIC PANEL STAT 03/21/2024 12:59 PM LACE FINISHER 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 having achieved remission (HCC) LACTATE DEHYDROGENASE STAT 03/21/2024 12:59 PM LACE FINISHER 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 having achieved remission (HCC) CMV, IGG STAT 03/21/2024 12:59 PM LACE FINISHER 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 having achieved remission (HCC) from Last 3 Months Results * Cytogenetics Specimen Tracking Bone marrow (03/27/2024 2:13 PM LACE FINISHER) [employer]otenetics Tracking Order Received Bone marrow 03/27/2024 2:13 PM LACE FINISHER 03/27/2024 5:26 PM LACE FINISHER Narrative [facility] - 03/28/2024 9:48 AM LACE FINISHER Please read the Cytogenetics Epic requisition for specimen collection requirements. us Evan Mai MD LAB BODY FLUIDS AND STOOLS ORD ERABLES Final Result [facility] Department [place] [address] * Cytogenetics Bone marrow (03/27/2024 2:13 PM LACE FINISHER) Bone marrow (Bone Marrow Biopsy) 03/27/2024 2:13 PM LACE FINISHER 03/27/2024 2:13 PM LACE FINISHER Narrative [facility] - CYTOGENETICS - 04/11/2024 2:17 PM LACE FINISHER [facility] results best viewed via link to PDF [facility] Department of Pathol [address] [place] [address] ? Patient Information ? Name: ??KELLEE PALACIOS. . ? Gender: ??M ? : ??1960 (Age: 63) ? Tissue: ??Bone Marrow w/ FISH ? Visit Information ? Hospital #: ? [id number] ? Facility: ? [facility] ? Service: ? [facility]PT ? Location: ? UNKNOWN ? Patient Type: ? WUPT-EPIC ? Specimen Information: ? Culture #: ??[id number] ? Date Collected: ??03/27/2024 ? Date Accessioned: [...] Resolution: ??400Subculture: ?? 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 LIMITED COMPLEX KARYOTYPE FISH FINDINGS: ?DELETION OF EGR1 (5q) - 18.5% ?TRISOMY OF RUNX1 (21q) - 8.5% ?MONOSOMY OF ASS1/ABL1 (9q) - 16.5% ?NO EVIDENCE OF MECOM REARRANGEMENT ?NO EVIDENCE OF DELETION/MONOSOMY OF I8A345 (7q) ?NO EVIDENCE OF KTFG8O1::RUNX1, BCR::ABL1, KMT2A, PML::GRANT ? OR CBFB REARRANGEMENT INTERPRETATION: Only six metaphase cells were obtained and analyzed from an unstimulated culture. ??All six metaphase cells analyzed revealed the clonal aberrations described above in a composite karyotype (cp). ??Due to efov-nc-dvyg heterogeneity, the karyotypic description is composite, listing [...] Pathology FLUORESCENCE IN-SITU HYBRIDIZATION [FISH] Karyotype: nuc bree(D4M275/P3X0512z6,EGR1x1)[37/200],(UQUQ0J4u7,VZUH0v8)[17/200],(ASS1x1,ABL1x1, BCRx2 )[33/200], (O1N027,KMT2A,PML,CBFB,GRANT)x2[200] Diagnosis: FISH FINDINGS: ?DELETION OF EGR1 (5q) - 18.5% ?TRISOMY OF RUNX1 (21q) - 8.5% ?MONOSOMY OF ASS1/ABL1 (9q) - 16.5% ?NO EVIDENCE OF DELETION/MONOSOMY OF F0F387 (7q) ? NO EVIDENCE OF YBXO0S2::RUNX1, BCR::ABL1, KMT2A, PML::GRANT OR CBFB ? REARRANGEMENT Pending FISH: ?FISH for MECOM INTERPRETATION: FISH analysis was performed with a panel of [employer] and [employer] probes for AML and is interpreted as ABNORMAL for the EGR1, IQUG0X6::RUNX1, and BCR::ABL1 probe sets. 1) FISH evaluation for a 5q deletion was performed on nuclei with the EGR1,Z1P089/E8O8477 Dual Color Probe ([employer] for EGR1 at 5q31.1 and the control Y0T235/R0E5740 at 5p15.31 and is interpreted as ABNORMAL. ??One EGR1 hybridization signal and two M9F668/G6G2066 control hybridization signals were observed in 37/200 nuclei, which exceeds the normal range (up to 3.1%) established for this probe in the Clinical Genomics Laboratory at [facility]. 2) FISH evaluation for a HVHH0I9::RUNX1 rearrangement was performed on nuclei with the LSI LPZR5Q2::RUNX1 Dual Color, Dual Fusion Translocation Probe ([employer] for BYCN6X6(ETO) at 8q22 and RUNX1(AML1) at 21q22 and is interpreted as ABNORMAL, although an YCJD7E9::RUNX1 rearrangement was not detected. ??An abnormal hybridization pattern consisting of two KOLW1B1 hybridization signals and three RUNX1 hybridization signals was observed in 17/200 nuclei, indicative of trisomy for the corresponding region on chromosome 21. ??This value exceeds the normal range (up to 1%) established for this probe in the Clinical Genomics Laboratory at [facility]. ?? 3) FISH evaluation for a BCR::ABL1 rearrangement was performed on nuclei with the LSI BCR::ABL1 Tricolor, Dual Fusion Translocation Probe ([employer] for ASS1/ABL1 at 9q34 and BCR [...] probe in the Clinical Genomics Laboratory at [facility]. 4) FISH evaluation for a 7q deletion was performed on nuclei with the LSI D4Y642/D7Z1 Dual Color Probe ([employer] for L1S343 at 7q31 and the control D7Z1 at 7p11.1-q11.1 and is interpreted as NORMAL. ??Two J3D294 hybridization signals and two D7Z1 control hybridization signals were observed in 200/200 nuclei, which is within the normal range established for this probe set in the Clinical Genomics Laboratory at [facility]. ??Up to 1% of cells in normal samples can show an apparent 7q deletion using this probe. ??A normal T9Y881 FISH finding can result from the absence of a 7q deletion, from a 7q deletion that does not involve the region to which this probe hybridizes or from an insufficient number of neoplastic cells in the specimen. 5) FISH evaluation for an KMT2A (MLL) rearrangement was performed on nuclei with the LSI KMT2A Dual Color, Break Apart Rearrangement Probe ([employer] at 11q23 and is interpreted as NORMAL. ??No rearrangement was observed in 200/200 nuclei, which is within the normal range established for this probe in the Clinical Genomics Laboratory at [facility]. ??Up to 1% of cells [...] probe in the Clinical Genomics Laboratory at [facility]. Variant signal pattern was observed [...] probe in the Clinical Genomics Laboratory at [facility]. ??Up to 2% of cells [...] developed and its performance characteristics determined by [facility] [employer] [facility]. It has not been cleared or approved by the FDA. The laboratory is regulated under CLIA as qualified to perform high-complexity testing. This test is used for clinical purposes. It should not be regarded as investigational or for research. Chromosome analysis and Fluorescence In Situ Hybridization (FISH) analysis are performed using the [employer] Cytovision Imaging System. Report Electronically Reviewed and Signed Out By Asim Bear, PhD, FACDate Reported: ??03/31/2024ssistant Professor, Division of Genomic & Molecular Pathology REFLEX FLUORESCENCE IN-SITU HYBRIDIZATION [FISH] Karyotype: nuc bree(MECOMx2)[200] Diagnosis: ?? FISH FINDINGS: ?NO EVIDENCE OF MECOM (3q) REARRANGEMENT INTERPRETATION: FISH evaluation for an EVI1(MECOM) rearrangement was performed on nuclei with the BETHANY Dual Color, Break Apart Rearrangement Probe ([employer]) at 3q26 and is interpreted as NORMAL. ??No rearrangement was observed in 199/200 nuclei, which is within the normal range established for this probe in the Clinical Genomics Laboratory at [facility]. ??Up to 2% of cells [...] developed and its performance characteristics determined by [facility]. It has not [...] MD LAB GENETIC TESTING Final Resu lt [facility] - CYTOGENETICS [address] [place] [address] * ChromoSeq tracking order Bone marrow (03/27/2024 2:13 PM LACE FINISHER) ChromoSeq Tracking Order Received Bone marrow 03/27/2024 2:13 PM LACE FINISHER 03/27/2024 5:26 PM LACE FINISHER Narrative [facility] - 03/28/2024 9:48 AM LACE FINISHER Specimen type (select one):->Marrow Evan Mai MD LAB BODY FLUIDS AND STOOLS ORD ERABLES Final Result [facility] Department [place] [address] * ChromoSeq - Heme Genetic Profiling (WGS) with interpretation Bone marrow (03/27/2024 2:13 PM LACE FINISHER) Bone marrow (Bone Marrow Biopsy) 03/27/2024 2:13 PM LACE FINISHER 03/28/2024 9:45 AM LACE FINISHER Narrative [facility] - CYTOGENETICS - 04/11/2024 10:20 PM LACE FINISHER [facility] Pathology Services [address] [place] [address] Final Report Patient Name: KELLEE PALACIOS SR. Address: [address] [place] [address] Gender: M : 1960 (Age: 63) Accessioned: 03/28/2024 Taken: 03/27/2024 Received: 03/28/2024 Physician(s): Evan Morataya MD Service: [facility] Location: Hospital #: [id number] Patient Type: [facility] ChromoSeq Molecular DiagnosticsReported:04/11/2024 Tissue type: Bone [...] identified, consistent with the corresponding cytogenetic studies ([id number]) and a complex karyotype. In addition, a [...] Mai MD LAB PATHOLOGY ORDERABLES Final Result [facility] - CYTOGENETICS [address] [place] [address] * MyeloSeq tracking order Bone marrow (03/27/2024 2:13 PM LACE FINISHER) MyeloSeq Received Bone marrow 03/27/2024 2:13 PM LACE FINISHER 03/27/2024 5:26 PM LACE FINISHER Narrative [facility] - 03/28/2024 9:48 AM LACE FINISHER Specimen type (select one):->Marrow us Evan Mai MD LAB BODY FLUIDS AND STOOLS ORD ERABLES Final Result [facility] One [facility] Department [place] [address] * Diagnosis MyeloSeq Heme NGS Panel with Interpretation Bone marrow (03/27/2024 2:13 PM LACE FINISHER) Bone marrow (Bone Marrow Biopsy) 03/27/2024 2:13 PM LACE FINISHER 03/28/2024 9:45 AM LACE FINISHER Narrative [facility] - CYTOGENETICS - 04/12/2024 10:35 PM LACE FINISHER [facility] Pathology Services [address] [place] [address] Final Report Patient Name: KELLEE PALACIOS SR. Address: [address] [place] [address] Gender: M : 1960 (Age: 63) Accessioned: 03/28/2024 Taken: 03/27/2024 Received: 03/28/2024 Physician(s): Evan Morataya MD Service: [facility] Location: Hospital #: [id number] Patient Type: [facility] MyeloSeq Molecular DiagnosticsReported:04/12/2024 Varients Detected: ? [...] presents for evaluation. Corresponding bone marrow biopsy ([id number]) shows a markedly hypercellular marrow with 5% blasts and megakaryocytic dysplasia. Corresponding cytogenetic studies ([id number]) show a complex karyotype. Specimen site: Bone marrow Variant Detail: ? Gene ? Location (GR38) ? Reference allele ? Variant allele ? Transcript:Coding change ? Population Frequency* ? TP53 ? [id number] ? C ? T ? [id number]:c.517G>A ? none*The population allele frequency represents the [...] the CLIA Licensed Environment laboratory at the [facility] at [facility] ([facility], CLIA #[id number], CAP #[id number]), Dr. Sammy Johnson MD, PhD, FCAP, Senior Accounting Associate. [address] [facility], [address] [place] [address] . The [facility] laboratory is regulated under CLIA as certified to perform high-complexity testing. Interpretation of sequencing results and case sign out is performed by Pathology and Immunology faculty in the Division of Genomic and Molecular Pathology (-[facility], CLIA #[id number], CAP #[id number]) Dr. Sujatha Littlejohn Ph.D., Senior Accounting Associate. Clinical Genomics Laboratory, [facility], [address], [place] [id number] [phone] . The [facility] is regulated [...] 30GBases of sequencing data generated on an [employer]. This test has been validated according to CAP guidelines for the detection of single nucleotide variants (SNVs) and indels (max validated size 117bp). This assay has two limits of detection: for new variants (not previously reported by [employer]) sensitivity is limited to 2% VAF; for [...] PATHOLOGY ORDERABLES Final Result Performing Organization Address City/[facility]/ZIP Co de Phone Number [facility] CYTOGENETICS [address] [place] [address] * Flow Leukemia/Lymphoma Bone marrow (03/27/2024 2:13 PM LACE FINISHER) Pathologist [facility] Kaufman Stain Test Completed Leukemia/Lymp johana Result See separate Surgical Pathology report. [facility] Bone marrow 03/27/2024 2:13 PM LACE FINISHER 03/27/2024 6:37 PM LACE FINISHER Narrative [facility] - 03/28/2024 8:22 AM LACE FINISHER Tube information: Green top (Sodium Heparin) Evan Mai MD LAB PATHOLOGY ORDERABLES Final Result Performing Organization Address [facility] Co de Phone Number [facility] Department [place] [address] * Hematologic Molecular Algorithm Bone marrow (03/27/2024 2:13 PM LACE FINISHER) Pathologist [facility] Heme Molecular Algorithm Received Bone marrow 03/27/2024 2:13 PM LACE FINISHER 03/28/2024 9:29 AM LACE FINISHER Narrative [facility] - 04/05/2024 11:34 AM LACE FINISHER Tube information: [place] top Clinical History / Treatment Plan:->AML on aza/azrina locally and currently getting treatment. Select diagnosis - - Appropriate molecular tests will be performed based on histopathological diagnosis.->AML 04/02/2024 - HMA complete, no additional testing indicated. Evan Mai MD LAB BODY FLUIDS AND STOOLS ORD ERABLES Final Result Performing Organization Address City/[facility] Co de Phone Number [facility] Department [place] [address] * Surgical pathology (03/27/2024 2:13 PM LACE FINISHER) Tissue (Bone Marrow Biopsy) 03/27/2024 2:13 PM LACE FINISHER 03/27/2024 5:22 PM LACE FINISHER Narrative PATHOLOGY [facility] - 03/29/2024 2:40 PM LACE FINISHER EPIC results best viewed via link to PDF [facility] [place] [address] Note to Patients: This report may contain [...] Gender: ??M : ??1960 (Age: 63) Address: ??[address] [place] [address] ??[id number] Hospital #: ??[id number] Taken:03/27/2024 Received:03/27/2024 Reported: 03/29/2024 Patient Type: [facility] MED ONC ?? Service: Laboratory Location: Physician(s): [...] 3 ?The differential count may not be promotions representative of marrow elements ? Bone marrow [...] specimen was examined for internal quality control coordinator purposes. Flow cytometry was performed using antibodies to the following cellular antigens: CD45, CD34, CD19, CD20, Napier Field, Lambda, CD10, CD5, CD200, CD38, CD2, CD3, [...] Surgical Pathology and Flow Cytometry Departments at [facility] as part of an ongoing senior quality manager program and in compliance with [...] Surgical Pathology and Flow Cytometry Departments of [facility]. ??It has not been cleared or approved by the U. S. Food and Drug Administration. IMAGES AND SCANNED DOCUMENTS, IF INCLUDED, ONLY VIEWABLE IN PDF VERSION OF REPORT us Evan Mai MD LAB PATHOLOGY ORDERABLES Final Result PATHOLOGY [facility] 3rd Floor [place], [place] [phone] * eGFR (03/27/2024 1:23 PM LACE FINISHER) eGFR >90 >=60 mL/min/1. 73 m2 Comment: [...] last reviewed 2021. Blood 03/27/2024 1:23 PM LACE FINISHER 03/27/2024 1:36 PM LACE FINISHER us Evan Mai MD LAB BLOOD ORDERABLES Final Res ult [facility] [facility] Department [place] [address] * (ABNORMAL) CBC with auto differential (03/27/2024 1:23 PM LACE FINISHER) Pathologist [facility] WBC 1.7(L) 3.8 - 9.9 K/cumm Comment:Testing performed by : [facility], [address] [phone] Hgb 7.9(L) 13.0 - 17.5 g/dL CERNER BJ Comment:Testing performed by : [facility], [address] [address] Hct 24.2(L) 38.9 - 50.3 % CERNER BJ Comment:Testing performed by : [facility], [address] [place], [place] [phone] Plt 21(L) 150 - 400 K/cumm CERNER BJ Comment:Testing performed by : [facility], [address] [place] [address] MPV 8.2 6.8 - 10.4 fL CERNER BJ Comment:Testing performed by : [facility], [address] [place] [address] RBC 2.80(L) 4.30 - 5.80 M/cumm CERNER BJ Comment:Testing performed by : [facility], [address] [address] MCV 86.5 81.3 - 96.4 fL CERNER BJ Comment:Testing performed by : [facility], [address] [address] MCH 28.3 27.1 - 33.3 pg CERNER BJ Comment:Testing performed by : [facility], [address] [place] [address] MCHC 32.7 32.3 - 35.7 g/dL CERNER BJ Comment:Testing performed by : [facility], [address] [address] RDW CV 18.4(H) 11.1 - 14.9 % CERNER BJ Comment:Testing performed by : [facility], [address] [place] [address] NRBC abs 0.00 0.00 - 0.01 K/cumm CERNER BJ Comment:Testing performed by : [facility], [address] [place] [address] Blood 03/27/2024 1:23 PM LACE FINISHER 03/27/2024 1:32 PM LACE FINISHER us Evan Mai MD LAB BLOOD ORDERABLES Edited Re bigg - Final CAITLIN ANDERSON One [facility] Department [place] [address] * (ABNORMAL) Manual Differential (03/27/2024 1:23 PM LACE FINISHER) Cells Counted 147 Comment:Testing performed by : [facility], [address] [place] [phone] Neutrophil abs 0.5(L) 1.5 - 6.5 K/cumm CERNER JUSTIN Comment:Testing performed by : [facility], [address] [place] [place] [phone] Lymphocyte abs 0.9 0.8 - 3.3 K/cumm CAITLIN ANDERSON Comment:Testing performed by : [facility], [address] [place] [phone] Monocyte abs 0.0(L) 0.2 - 0.8 K/cumm CERRAMAN ANDERSON Comment:Testing performed by : [facility], [address] [place] [phone] Eosinophil abs 0.0 0.0 - 0.5 K/cumm CAITLIN ANDERSON Comment:Testing performed by : [facility], [address] [place] [phone] Basophil abs 0.0 0.0 - 0.1 K/cumm CAITLIN ANDERSON Comment:Testing performed by : [facility], [address] [place] [phone] Neutrophil pct 31.0 % CERRAMAN ANDERSON Comment: Interpretive Data Percent cell count reference ranges are not reported, since discordance with absolute values may lead to misinterpretation of CBC data. Current Interpretive Data was last revised on 2017. Testing performed by: [facility], [address] [place] [phone] Lymphocyte pct 54.0 % CERRAMAN ANDERSON Comment: Interpretive Data Percent cell count reference ranges are not reported, since discordance with absolute values may lead to misinterpretation of CBC data. Current Interpretive Data was last revised on 2017. Testing performed by: [facility], [address] [place] [phone] Monocyte pct 0.0 % CERNER BJH Comment: Interpretive Data Percent cell count reference ranges are not reported, since discordance with absolute values may lead to misinterpretation of CBC data. Current Interpretive Data was last revised on 2017. Testing performed by: [facility], [address] [place], [place] [phone] Eosinophil pct 1.0 % CERNER BJH Comment: Interpretive Data Percent cell count reference ranges are not reported, since discordance with absolute values may lead to misinterpretation of CBC data. Current Interpretive Data was last revised on 2017. Testing performed by: [facility], [address] [place], [place] [phone] Basophil pct 1.0 % CERNER BJH Comment: Interpretive Data Percent cell count reference ranges are not reported, since discordance with absolute values may lead to misinterpretation of CBC data. Current Interpretive Data was last revised on 2017. Testing performed by: [facility], [address] [place] [phone] Metamyelocyte pct 3.0 % CERNER BJH Comment:Testing performed by : [facility], [address] [place] [phone] Myelocyte pct 1.0 % CERNER BJH Comment:Testing performed by : [facility], [address] [place] [phone] Variant lymph pct 10.0 % CERNER BJH Comment:Testing performed by : [facility], [address] [place] [phone] Smudge cells, qual Present(A ) CERNER BJH Comment:Testing performed by : [facility], [address] [place], [place] [phone] Polychromasia 1+(A) CERNER BJH Comment:Testing performed by : [facility], [address] [place], [place] [phone] Hypochromasia 1+(A) CAITLIN ANDERSON Comment:Testing performed by : [facility], [address] [place], [place] [phone] Anisocytosis 1+(A) CAITLIN [facility] Comment:Testing performed by : [facility], [address] [place], [place] [phone] Poikilocytosis 1+(A) CAITLIN [facility] Comment:Testing performed by : [facility], [address] [place] [phone] Microcytes 1+(A) CAITLIN [facility] Comment:Testing performed by : [facility], [address] [place], [place] [phone] Macrocytes 1+(A) CAITLIN [facility] Comment:Testing performed by : [facility], [address] [place], [place] [phone] Schistocytes 1+(A) CAITLIN [facility] Comment:Testing performed by : [facility], [address] [place], [place] [phone] Elliptocytes 1+(A) CAITLIN [facility] Comment:Testing performed by : [facility], [address] [place], [place] [phone] Target cells 1+(A) CAITLIN [facility] Comment:Testing performed by : [facility], [address] [place], [place] [phone] Platelet estimate Decreased (A) CAITLIN [facility] Comment:Testing performed by : [facility], [address] [place], [place] [phone] Blood 03/27/2024 1:23 PM LACE FINISHER 03/27/2024 1:32 PM LACE FINISHER us Evan Mai MD LAB BLOOD ORDERABLES Final Res ult CAITLIN ANDERSON One [facility] Department [place] [address] * (ABNORMAL) Comprehensive metabolic panel (03/27/2024 1:23 PM LACE FINISHER) Sodium 132(L) 135 - 145 mmol/L Potassium, pl 3.3 3.3 - 4.9 mmol/L [facility] Chloride 102 97 - 110 mmol/L [facility] CO2 25 22 - 32 mmol/L [facility] Anion gap 5 2 - 15 mmol/L [facility] BUN 20 6 - 25 mg/dL [facility] Creatinine 0.62(L) 0.80 - 1.30 mg/dL [facility] Glucose 105 70 - 199 mg/dL [facility] Comment: Interpretive Data Fasting glucose >/= [...] 2022. Calcium 8.4(L) 8.5 - 10.3 mg/dL [facility] Bilirubin, total 0.6 0.1 - 1.2 mg/dL [facility] Protein, pl 7.0 6.5 - 8.5 g/dL [facility] Albumin 3.0(L) 3.5 - 5.0 g/dL [facility] Alk phos 80 40 - 130 Units/L [facility] ALT 7 7 - 55 Units/L [facility] AST 13 10 - 50 Units/L [facility] Blood 03/27/2024 1:23 PM LACE FINISHER 03/27/2024 1:36 PM LACE FINISHER us Evan Mai MD LAB BLOOD ORDERABLES Final Res ult [facility] One [facility] [place] [address] * Transfuse RBC (03/21/2024 8:18 PM LACE FINISHER) Blood us Evan Mai MD BLOOD TRANSFUSION ORDERABLES F inal Result * Transfuse RBC (03/21/2024 6:29 PM LACE FINISHER) Blood us Evan Mai MD BLOOD TRANSFUSION ORDERABLES F inal Result * Check Sample (03/21/2024 2:48 PM LACE FINISHER) ABO Rh A Positive [facility] HCLL OTHER 03/21/2024 2:48 PM LACE FINISHER 03/21/2024 3:43 PM LACE FINISHER us Evan Mai MD LAB BLOOD ORDERABLES Final Res ult Performing Organization Address [facility] Co de Phone Number [facility] [place] [address] [facility] * Prepare RBC: 2 Units (03/21/2024 2:46 PM LACE FINISHER) Product code [id number] [facility] Unit Number [id number] [facility] Product Blood Type APOS [facility] Dispense Status PRESUMED TRANSFUSED [facility] Product code [id number] Unit Number [id number] [facility] Product Blood Type APOS [facility] Dispense Status PRESUMED TRANSFUSED [facility] Blood 03/21/2024 2:46 PM LACE FINISHER 03/21/2024 2:45 PM LACE FINISHER Narrative [facility] - 03/22/2024 12:55 AM LACE FINISHER Are special requirements needed? (All products are leukoreduced and CMV- safe)->Yes us Evan Mai MD BLOOD BANK PRODUCT ORDERABLES Final Result Performing Organization Address [facility] Co de Phone Number [facility] [place] [address] * (ABNORMAL) Differential, auto (03/21/2024 1:05 PM LACE FINISHER) Neutrophil abs 0.3(L) 1.5 - 6.5 K/cumm Comment:Testing performed by : [facility], [address] [place], [place] [phone] Lymphocyte abs 0.4(L) 0.8 - 3.3 K/cumm CERNER [facility]JH Comment:Testing performed by : [facility], [address] [place], [place] [phone] Monocyte abs 0.1(L) 0.2 - 0.8 K/cumm CERNER [facility] Comment:Testing performed by : [facility], [address] [place], [place] [phone] Eosinophil abs 0.0 0.0 - 0.5 K/cumm CERNER [facility] Comment:Testing performed by : [facility], [address] [place], [place] [phone] Basophil abs 0.0 0.0 - 0.1 K/cumm CERNER [facility] Comment:Testing performed by : [facility], [address] [place], [place] [phone] Neutrophil pct 36.7 % CERNER [facility] Comment: Interpretive Data Percent cell count reference ranges are not reported, since discordance with absolute values may lead to misinterpretation of CBC data. Current Interpretive Data was last revised on 2017. Testing performed by: [facility], [address] [place] [phone] Lymphocyte pct 52.1 % CERNER [facility] Comment: Interpretive Data Percent cell count reference ranges are not reported, since discordance with absolute values may lead to misinterpretation of CBC data. Current Interpretive Data was last revised on 2017. Testing performed by: [facility], [address] [place] [phone] Monocyte pct 9.0 % CERNER [facility] Comment: Interpretive Data Percent cell count reference ranges are not reported, since discordance with absolute values may lead to misinterpretation of CBC data. Current Interpretive Data was last revised on 2017. Testing performed by: [facility], [address] [place], [place] [phone] Eosinophil pct 0.1 % CERNER [facility] Comment: Interpretive Data Percent cell count reference ranges are not reported, since discordance with absolute values may lead to misinterpretation of CBC data. Current Interpretive Data was last revised on 2017. Testing performed by: [facility], [address] [place] [phone] Basophil pct 2.1 % CAITLIN ANDERSON Comment: Interpretive Data Percent cell count reference ranges are not reported, since discordance with absolute values may lead to misinterpretation of CBC data. Current Interpretive Data was last revised on 2017. Testing performed by: [facility], [address] [place] [phone] Blood 03/21/2024 1:05 PM LACE FINISHER 03/21/2024 1:06 PM LACE FINISHER us Evan Mai MD LAB BLOOD ORDERABLES Final Res ult CAITLIN [facility] One [facility] Department [place] [address] * (ABNORMAL) CBC with auto differential (03/21/2024 1:05 PM LACE FINISHER) WBC 0.7(L) 3.8 - 9.9 K/cumm Comment:Testing performed by : [facility], [address] [place] [phone] Hgb 6.5(L) 13.0 - 17.5 g/dL CAITLIN ANDERSON Comment: Critical Result HGB:6.5 Called to and read back by: GERMAINE ADAMS RN at: 03/21/2024 13:32:52 by:DAVY. Testing performed by: [facility], [address] [place] [phone] Hct 19.8(L) 38.9 - 50.3 % CAITLIN ANDERSON Comment:Testing performed by : [facility], [address] [place] [phone] Plt 45(L) 150 - 400 K/cumm CAITLIN ANDERSON Comment:Testing performed by : [facility], [address] [place] [address] MPV 8.3 6.8 - 10.4 fL CAITLIN ANDERSON Comment:Testing performed by : [facility], [address] [place] [address] RBC 2.31(L) 4.30 - 5.80 M/cumm CAITLIN ANDERSON Comment:Testing performed by : [facility], [address] [place], [place] [phone] MCV 85.7 81.3 - 96.4 fL CAITLIN ANDERSON Comment:Testing performed by : [facility], [address] [place], [place] [phone] MCH 28.1 27.1 - 33.3 pg CAITLIN ANDERSON Comment:Testing performed by : [facility], [address] [place] [address] MCHC 32.7 32.3 - 35.7 g/dL CAITLIN ANDERSON Comment:Testing performed by : [facility], [address] [place] [address] RDW CV 20.4(H) 11.1 - 14.9 % CAITLIN ANDERSON Comment:Testing performed by : [facility], [address] [place] [address] NRBC abs 0.00 0.00 - 0.01 K/cumm CAITLIN ANDERSON Comment:Testing performed by : [facility], [address] [place] [address] Blood 03/21/2024 1:05 PM LACE FINISHER 03/21/2024 1:06 PM LACE FINISHER us Evan Mai MD LAB BLOOD ORDERABLES Final Res ult CAITLIN ANDERSON One [facility] [place] [address] * eGFR (03/21/2024 12:59 PM LACE FINISHER) eGFR >90 >=60 mL/min/1. 73 m2 Comment: [...] reviewed 2021. Blood 03/21/2024 12:5 9 PM LACE FINISHER 03/21/2024 1:11 PM LACE FINISHER us Evan Mai MD LAB BLOOD ORDERABLES Final Res ult Performing Organization Address City/State/[facility] Co wy Phone Number [facility] One [facility] [place] [address] * (ABNORMAL) CMV, IgG Blood (03/21/2024 12:59 PM LACE FINISHER) CMV IgG Positive( A) Negative Comment: Interpretive [...] CMV infection. Blood 03/21/2024 12:5 9 PM LACE FINISHER 03/21/2024 2:17 PM LACE FINISHER us Evan Mai MD LAB MICROBIOLOGY - GENERAL ORD ERABLES Final Result Performing Organization Address City/[facility]/ZIP Co de Phone Number [facility] [place] [address] * Type and screen (03/21/2024 12:59 PM LACE FINISHER) ABO Rh A Positive Adalgisa, indirect Negative [facility] Blood 03/21/2024 12:5 9 PM LACE FINISHER 03/21/2024 1:29 PM LACE FINISHER Narrative [facility] - 03/21/2024 2:27 PM LACE FINISHER Has the patient had Daratumumab or Isatuximab in the past 6 months?->Unknown Evan Mai MD LAB BLOOD BANK TEST ORDERABLES Final Result Performing Organization Address City/[facility]/ZIP Co de Phone Number [facility] [place] [address] * Uric acid (03/21/2024 12:59 PM LACE FINISHER) Uric acid 4.7 3.0 - 8.0 mg/dL Blood 03/21/2024 12:5 9 PM LACE FINISHER 03/21/2024 1:11 PM LACE FINISHER Evan Mai MD LAB BLOOD ORDERABLES Final Res [place] [address] * Phosphorus (03/21/2024 12:59 PM LACE FINISHER) Phosphorus, pl 4.0 2.3 - 4.5 mg/dL Blood 03/21/2024 12:5 9 PM LACE FINISHER 03/21/2024 1:11 PM LACE FINISHER Evan Mai MD LAB BLOOD ORDERABLES Final Res ult Performing Organization Address [facility] de Phone Number [facility] [place] [address] * Magnesium (03/21/2024 12:59 PM LACE FINISHER) [facility] Magnesium 2.2 1.4 - 2.5 mg/dL Blood 03/21/2024 12:5 9 PM LACE FINISHER 03/21/2024 1:11 PM LACE FINISHER Evan Mai MD LAB BLOOD ORDERABLES Final Res ult Performing Organization Address [facility] de Phone Number [facility] [place] [address] * (ABNORMAL) Lactate dehydrogenase (LD) (03/21/2024 12:59 PM LACE FINISHER) [facility] Lactate dehydrogenase (LDH) 267(H) 100 - 250 Units/L Blood 03/21/2024 12:5 9 PM LACE FINISHER 03/21/2024 1:11 PM LACE FINISHER Evan Mai MD LAB BLOOD ORDERABLES Final Res ult Performing Organization Address [facility] [place] [address] * (ABNORMAL) Comprehensive metabolic panel (03/21/2024 12:59 PM LACE FINISHER) [facility] Sodium 133(L) 135 - 145 mmol/L Potassium, pl 4.7 3.3 - 4.9 mmol/L [facility] Chloride 103 97 - 110 mmol/L [facility] CO2 27 22 - 32 mmol/L [facility] Anion gap 3 2 - 15 mmol/L [facility] BUN 26(H) 6 - 25 mg/dL [facility] Creatinine 0.77(L) 0.80 - 1.30 mg/dL [facility] Glucose 119 70 - 199 mg/dL [facility] Comment: Interpretive Data Fasting glucose >/= [...] 2022. Calcium 9.2 8.5 - 10.3 mg/dL [facility] Bilirubin, total 0.4 0.1 - 1.2 mg/dL [facility] Protein, pl 8.5 6.5 - 8.5 g/dL [facility] Albumin 3.2(L) 3.5 - 5.0 g/dL [facility] Alk phos 88 40 - 130 Units/L [facility] ALT 5(L) 7 - 55 Units/L [facility] AST 14 10 - 50 Units/L [facility] Blood 03/21/2024 12:5 9 PM LACE FINISHER 03/21/2024 1:11 PM LACE FINISHER Evan Mai MD LAB BLOOD ORDERABLES Final Res ult Performing Organization Address City/State/[facility] Co de Phone Number [facility] One [facility] [place] [address] from Last 3 Months Insurance [employer] OPEN ACCESS [employer] Care Teams Blood Bank Attendant Relationship Specialty Start Date End Date Yaya Britt MD PCP - General 07/31/16 Kaleb Tomlin MD [address] [phone] Referring Physician Hematology 02/29/24 Evan Mai MD [address] [facility] [address] DIV [place] [address] Consulting Physician Internal Medicine 03/01/24
--- OUTSIDE RECORDS SUMMARY | 2024-04-20 03:13 | XMS_ITS | Encounter Summary ---
Author Organization [facility] Address [address] [place] [address] Care Team Providers Care Refrigeration Systems Installer Name Role Phone Yaya Britt MD Primary Care Provider [phone] Encounter Details Date Type Department Care Team (Late st Contact Info) Description 02/24/2024 Orders Only [facility] Oncology and Hematology - Josh [address] [facility] [address] [place] [address] Kaleb Tomlin MD [address] [facility] [address] [place] [address] Social History Tobacco Use Types [...] Priority Date/Time Associated Diagnosis Comments BONE MARROW ASPIRATION & BIOPSY Routine 02/18/2024 1:52 PM CDT documented in this encounter Results * BONE MARROW ASPIRATION AND BIOPSY (02/18/2024 1:52 PM CDT) Bone marrow Kaleb Tomlin MD PATH/CYTO ORDERABLES COM documented in this encounter Visit Diagnoses Not on filedocumented in this encounter Care Teams Refrigeration Systems Installer Relationship Specialty Start Date End Date Yaya Britt MD [address] [place] [phone] PCP - General Family Practice 07/13/23 documented as of this encounter
--- OUTSIDE RECORDS SUMMARY | 2024-04-20 03:13 | XMS_ITS | Encounter Summary ---
Author Organization [facility] [employer]DRAB[employer] [facility] Address [address] [place] [address] Care Team Providers Care Training Analyst Name Role Phone Yaya Britt MD Primary Care Provider [phone] Encounter Details Date Type Department Care Team (Late st Contact Info) Description 03/24/2024 Abstract [facility] Oncology and Hematology - Josh [address] [place] [address] [address] [place] [address] Kaleb Tomlin MD [address] [facility] [address] [place] [address] Social History Tobacco Use Types [...] on filedocumented in this encounter Care Teams Training Analyst Relationship Specialty Start Date End Date Yaya Britt MD [address] [place] [address] PCP - General Family Practice 07/13/23 documented as of this encounter
--- OUTSIDE RECORDS SUMMARY | 2024-04-20 03:13 | XMS_ITS | Encounter Summary ---
Author Organization [facility] NARENDRAGnar[employer] Systems [facility] Address [address] [place] [address] Care Team Providers Care Photography Coordinator Name Role Phone Yaya Britt MD Primary Care Provider [phone] Encounter Details Date Type Department Care Team (Late st Contact Info) Description 04/13/2024 Orders Only [facility] Oncology and Hematology - Josh [address] [place] [address] Kaleb Tomlin MD [address] [facility] [address] [place] [address] Social History Tobacco Use Types [...] Procedure Name Priority Date/Time Associated Diagnosis Comments CHG ANTIBODY SCREEN RBC EA SERUM Routine 04/10/2024 10:58 AM CHANNEL WORKER documented in this encounter Results * CHG ANTIBODY SCREEN RBC EA SERUM (04/10/2024 10:58 AM CHANNEL WORKER) Kaleb Tomlin MD CHG - LABORATORY documented in this encounter Visit Diagnoses Not on filedocumented in this encounter Care Teams Photography Coordinator Relationship Specialty Start Date End Date Yaya Britt MD [address] [place] [address] PCP - General Family Practice 07/13/23 documented as of this encounter
--- OUTSIDE RECORDS SUMMARY | 2024-04-20 03:13 | XMS_ITS | Encounter Summary ---
Author Organization [facility] Address [address] [place] [address] Care Team Providers Care Business Loan Processor Name Role Phone Yaya Britt MD Primary Care Provider [phone] Encounter Details Date Type Department Care Team (Late st Contact Info) Description 08/17/2023 External Device Data STL ABSTRACTION Provider, Abstract [...] filedocumented in this encounter Care Teams Business Loan Processor Relationship Specialty Start Date End Date Yaya Britt MD [address] [place] [address] PCP - General Family Practice 07/13/23 documented as of this encounter
--- OUTSIDE RECORDS SUMMARY | 2024-04-20 03:13 | XMS_ITS | Encounter Summary ---
Author Organization [facility] Address [address] [place] [address] Care Team Providers Care Nuclear Medicine Pet Ct Technologist Name Role Phone Unavailable Primary Care Provider Unavailabl e Encounter Details Date Type Department Care Team (Late st Contact Info) Description 02/21/2024 Lab Requisition [facility] - Pathology Lab [address] [place] [address] Ignacio Hernández MD [address] [facility] [address] [place] [address] Illness, unspecified Social History Tobacco Use [...] Report Bone Marrow Patholog y Report ?Case: [id number] ? Authorizing Provider: ??Ignacoi Hernández ? Collected: ? 02/18/2024 10:55 AM ? MD Gerber ? Ordering Location: ? [facility] - ??Received: ?02/21/2024 03:32 PM ? Pathology Lab ? Pathologist: ? Tanya Esquivel MD ? Specimens: ?? A) - Bone Marrow Clot ? B) - Bone Marrow Core ? 02/24/2024 11:16 AM [facility] Final Diagnosis Bone marrow, aspirate, clot section, and core biopsy: - High-grade myeloid neoplasm. - See description and comment. 02/24/2024 11:16 AM [facility] Comment Overall findings [...] immunohistochemistry (K:L of ~1). 02/24/2024 11:16 AM [facility] Peripheral Smear Description Not submitted. 02/24/2024 11:16 AM [facility] Bone Marrow Aspirate Differential count (200 cells): not performed due to hemodilution. Specimen quality: hemodilute Mostly peripheral blood elements. No blasts seen. Too few cells to assess for dysplasia. Storage iron (by special stain): cannot be assessed due to lack of spicules. 02/24/2024 11:16 AM [facility] Bone Marrow Core [...] morphology: peripheral blood only. 02/24/2024 11:16 AM [facility] Flow Cytometry Summary Bone marrow, flow cytometry ([id number]): - No clonal B-cell, aberrant T-cell, or increased blast population detected 02/24/2024 11:16 AM CDT [facility] Clinical History Pancytopenia. 02/24/2024 11:16 AM [facility] Materials Received Received are 18 slide(s) and 3 block (s) labeled [id number] and along with a copy of the outside pathology report. [place] [address] . All original materials are returned to the referring institution, along with a copy of our final report. 02/24/2024 11:16 AM [facility] Pathologist Location at [facility] 02/24/2024 11:16 AM [facility] Disclaimer The performance characteristics of all immunohistochemical and indirect immunofluorescence stains (if any) cited in this report were determined by the Histopathology Laboratory of [facility]. Some of these tests were developed [...] the attending (teaching) pathologist. 02/24/2024 11:16 AM [facility] Addendum 1 Additional immunohistochemistry shows blasts to be negative for CD61 ruling out acute megakaryoblastic leukemia. E-Cadherin shows weak staining in a subset of erythroid precursors, ruling out pure erythroid leukemia. 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 02/24/2024 11:16 AM [facility] Addendum electronically signed by Tanya Esquivel MD on 02/24/2024 at 11:16 AM Embedded Images 02/24/2024 11:16 AM [facility] Pathology/Cytology BONE MARROW SPECIMEN / Unknown 02/18/2024 10:55 AM CDT 02/21/2024 3:32 PM CDT Miscellaneous samples (specimen) BONE MARROW SPECIMEN / Unknown 02/18/2024 10:55 AM CDT 02/21/2024 3:32 PM CDT Ignacio Hernández MD LAB - PATHO LOGY/CYTOLOGY ORDERABLES Performing Organization Address City/State/[facility] Co de Phone Number [facility] [address] [phone] documented in this encounter Visit Diagnoses Diagnosis Illness, unspecified documented in this encounter
--- OUTSIDE RECORDS SUMMARY | 2024-04-20 03:13 | XMS_ITS | Encounter Summary ---
Author Organization [facility] [employer] [facility] Address [address] [place] [address] Care Team Providers Care Work Checker Name Role Phone Yaya Britt MD Primary Care Provider [phone] Reason for Visit * Reason Onset Date Comments Lab Results 03/28/2024 Encounter Details Date Type Department Care Team (Late st Contact Info) Description 03/28/2024 Telephone [facility] Oncology and Hematology - Josh [address] [facility] [address] [place] [address] Kaleb Tomlin MD [address] [facility] [address] [place] [address] Lab Results Social History Tobacco Use Types Packs/Day Years [...] encounter Miscellaneous Notes * Telephone Encounter - Ros Monk - 03/28/2024 12:12 PM CST Patient called stating that patient had blood work done at [facility]. Abdiaziz states that patient is at a 7.9 hem and wanted to know if we wanted to do a transfusion. I told her generally we do not do blood transfusion unless patient is less than 7 hem. I told her that with his medical condition he will have lower hem levels than a person without it. I told her if she wanted to come in [facility] we can check then and go from there. ER OFF documented in this encounter Plan of Treatment Scheduled Orders Name Type Priority Associated Diagnoses Orde r Schedule CBC WITH DIFFERENTIAL Lab Routine MDS (myelodysplastic syndrome), high grade Expected: 03/28/2024, Expires: 03/28/2025 BASIC METABOLIC PANEL Lab Routine MDS (myelodysplastic syndrome), high grade Expected: 03/28/2024, Expires: 03/28/2025 documented as of this encounter Visit Diagnoses Diagnosis MDS (myelodysplastic syndrome), high grade- Primary High grade myelodysplastic syndrome lesions documented in this encounter Care Teams Work Checker Relationship Specialty Start Date End Date Yaya Britt MD [address] [place] [address] PCP - General Family Practice 07/13/23 documented as of this encounter
--- OUTSIDE RECORDS SUMMARY | 2024-04-20 03:13 | XMS_ITS | Encounter Summary ---
Author Organization [facility] [employer]ENDRAP[employer] [facility] Address [address] [place] [address] Care Team Providers Care Clinic Specialist Name Role Phone Yaya Britt MD Primary Care Provider [phone] Reason for Visit * Reason Onset Date Comments Lab Results 03/09/2024 Encounter Details Date Type Department Care Team (Late st Contact Info) Description 03/09/2024 Telephone [facility] Oncology and Hematology - Josh [address] [place] [address] Mayela Marin MD [address] [place] [address] Lab Results Social History Tobacco [...] * Telephone Encounter - Consuelo Figueroa - 03/09/2024 4:[address] Cordova's office called today saying they were unable to place port because his platelet count was to low. They have rescheduled him for port placement on 03/15. Plan is to give platelets on 03/14 so he is able to get the port placement done on 03/15. FACTURING OPERATOR documented in this encounter Plan of Treatment Not on file documented as of this encounter Visit Diagnoses Not on filedocumented in this encounter Care Teams Clinic Specialist Relationship Specialty Start Date End Date Yaya Britt MD [address] [place] [address] PCP - General Family Practice 07/13/23 documented as of this encounter
--- OUTSIDE RECORDS SUMMARY | 2024-04-20 03:13 | XMS_ITS | Encounter Summary ---
Author Organization [facility] NARENDRAE[employer] [facility] Address [address] [place] [address] Care Team Providers Care Torsion [place] Coiling Machine Setter Name Role Phone Yaya Britt MD Primary Care Provider [phone] Encounter Details Date Type Department Care Team (Late st Contact Info) Description 03/20/2024 Orders Only [facility] Oncology and Hematology - Josh [address] [facility] [address] [place] [address] Kaleb Tomlin MD [address] [facility] [address] [place] [address] Social History Tobacco Use Types [...] Associated Diagnosis Comments CBC WITH DIFFERENTIAL Routine 03/17/2024 11:01 AM DEVELOPMENT COORDINATOR documented in this encounter Results * CBC WITH DIFFERENTIAL (03/17/2024 11:01 AM DEVELOPMENT COORDINATOR) Blood Kaleb Tomlin MD HEMATOLOGY ORDERABLE S documented in this encounter Visit Diagnoses Not on filedocumented in this encounter Care Teams [place] Coiling Machine Setter Relationship Specialty Start Date End Date Yaya Britt MD [address] [place] [address] PCP - General Family Practice 07/13/23 documented as of this encounter
--- OUTSIDE RECORDS SUMMARY | 2024-04-20 03:13 | XMS_ITS | Clinical Summary ---
Author Organization [facility] [employer]ia [employer] Address [address] [facility] [place] [address] Care Team Providers Care Subsurface Augmentee Elint Operator Name Role Phone Yaya Britt MD Primary Care Provider [phone] Allergies No known active allergies Medications Medication Sig Dispensed Refills Start Date End Date Status amiodarone (CORDARONE) 200 mg tablet Take 200 mg by mouth daily. 07/30/2023 Active Jardiance 10 mg tablet Take 10 mg by mouth daily. 07/28/2023 Active ferrous sulfate 325 mg (65 mg iron) Tablet, Delayed Release (E.C.) Take 325 mg by mouth 2 times daily. 08/02/2023 Active HYDROcodone-aceta minophen (NORCO) 7.5-325 mg Tablet Take 1 Tablet by mouth every 6 hours. 06/28/2023 Active Levothyroxine 75 mcg Capsule Take 1 Capsule by mouth daily in the morning. 07/20/2023 Active metoprolol succinate (TOPROL XL) 50 mg Extended Release 24 hour tablet Take 50 mg by mouth daily in the morning. 08/02/2023 Active Entresto 24-26 mg Tablet Take 1 Tablet by mouth 2 times daily. 08/01/2023 Active spironolactone (ALDACTONE) 25 mg tablet Take 25 mg by mouth daily in the morning. 08/02/2023 Active ASCORBIC ACID, VITAMIN C, ORAL Take by mouth. Activ e cholecalciferol, vitamin D3, 5,000 unit Take 400 Units by mouth daily. Active multivitamin (DAILY-MARIO) tablet Take 1 Tablet by mouth daily. Active amoxicillin-clavu lanate (AUGMENTIN) 875-125 mg tablet Take 1 Tablet by mouth every 12 hours. Active traZODone (DESYREL) 50 mg tablet Take 50 mg by mouth daily at bedtime. Active ALPRAZolam (XANAX) 0.25 mg tablet Take 0.25 mg by mouth nightly as needed for Anxiety. Active lidocaine-priloca ine (EMLA) 2.5-2.5 % CreamIndications: MDS (myelodysplastic syndrome), high grade Apply a quarter size amount to port site 30 minutes before access. 30 Gram 1 03/16/2024 Active ondansetron (ZOFRAN ODT) 8 mg Tablet, Rapid DissolveIndicatio ns:MDS (myelodysplastic syndrome), high grade Dissolve 1 tablet on top of tongue then swallow with saliva every 8 hours as needed for nausea or vomiting 30 Tablet 1 03/16/2024 Active acyclovir (ZOVIRAX) 400 mg tablet Take 1 tablet by mouth BID. 60 Tablet 2 03/16/2024 Active levoFLOXacin (LEVAQUIN) 250 mg tabletIndications :MDS (myelodysplastic syndrome), high grade Take 1 Tablet (250 mg) by mouth daily. 90 Tablet 1 04/10/2024 Active levoFLOXacin (LEVAQUIN) 500 mg tablet Take 1 Tablet (500 mg) by mouth daily. 10 Tablet 03/16/2024 04/10/2024 Discontinued( Alternate therapy prescribed) Active Problems No known active problems Encounters Date Type Department Care Team Description 04/17/2024 Abstract [facility] Oncology and Hematology - Josh [address] [place] [id number] Kaleb Tomlin MD 04/13/2024 Orders Only [facility] Oncology and Hematology - Josh [address] [place] [address] Kaleb Tomlin MD 04/12/2024 Orders Only [facility] Oncology and Hematology - Josh [address] [place] [address] Kaleb Tomlin MD 04/12/2024 Abstract [facility] Oncology and Hematology - Josh [address] [place] [address] Kaleb Tomlin MD 04/11/2024 Orders Only [facility] Oncology and Hematology - Josh [address] [place] [address] Kaleb Tomlin MD 04/10/2024 Refill [facility] Oncology and Hematology - Josh [address] [place] [address] Kaleb Tomlin MD MDS (myelodysplastic syndrome), high grade (Primary Dx) 04/10/2024 Orders Only [facility] Oncology and Hematology - Josh [address] [place] [id number] Kaleb Tomlin MD MDS (myelodysplastic syndrome), high grade 04/05/2024 Abstract [facility] Oncology and Hematology - [address] Kaleb Tomlin MD 04/04/2024 Orders Only [facility] Oncology and Hematology - Josh [address] Kaleb Tomlin MD 03/28/2024 Telephone [facility] Oncology and Hematology - Josh [address] [place] [phone] Kaleb Tomlin MD Lab Results 03/27/2024 Orders Only [facility] Oncology and Hematology - Josh [address] [place] [phone] Kaleb Tomlin MD MDS (myelodysplastic syndrome), high grade 03/24/2024 Abstract [facility] Oncology and Hematology - [address] [place] [address] Kaleb Tomlin MD 03/24/2024 Abstract [facility] Oncology and Hematology - Josh [address] [place] [address] Kaleb Tomlin MD 03/22/2024 Orders Only [facility] Oncology and Hematology - Josh [address] [place] [address] Kaleb Tomlin MD 03/20/2024 Orders Only [facility] Oncology and Hematology - Josh [address] [place] [address] Kaleb Tomlin MD 03/17/2024 Orders Only [facility] Oncology and Hematology - Josh [address] [place] [address] Kaleb Tomlin MD MDS (myelodysplastic syndrome), high grade (Primary Dx) 03/16/2024 Refill [facility] Oncology and Hematology - Josh [address] [place] [address] Kaleb Tomlin MD 03/16/2024 Refill [facility] Oncology and Hematology - Josh [address] [place] [address] Kaleb Tomlin MD MDS (myelodysplastic syndrome), high grade (Primary Dx) 03/13/2024 Abstract [facility] Oncology and Hematology - Josh [address] [place] [address] Kaleb Tomlin MD 03/09/2024 Telephone [facility] Oncology and Hematology - [address] [place] [address] Mayela Marin MD Lab Results 03/08/2024 Abstract [facility] Oncology and Hematology - Josh [address] [place] [address] Kaleb Tomlin MD 03/01/2024 External Device Data STL ABSTRACTION Provider, Abstract 02/28/2024 Orders Only [facility] Oncology and Hematology - [address] [place] [address] Kaleb Tomlin MD 02/25/2024 11:30 AM CDT Office Visit [facility] Oncology and Hematology - [address] [place] [address] Kaleb Tomlin MD Chronic anemia (Primary Dx); MDS (myelodysplastic syndrome), high grade 02/24/2024 Orders Only [facility] Oncology and Hematology - Josh [address] [place] [address] Kaleb Tomlin MD 02/22/2024 Orders Only [facility] Oncology and Hematology - Josh [address] [place] [address] Kaleb Tomlin MD 02/18/2024 Orders Only [facility] Oncology and Hematology - Josh [address] [place] [address] Kaleb Tomlin MD 02/16/2024 3:30 PM CDT Office Visit [facility] Oncology and Hematology - Josh [address] [place] [address] Kaleb Tomlin MD Chronic anemia (Primary Dx) 02/16/2024 Orders Only [facility] Oncology and Hematology - Josh [address] [place] [address] Kaleb Tomlin MD Chronic anemia (Primary Dx) 02/16/2024 Telephone [facility] Oncology and Hematology - [address] [place] [address] Kaleb Tomlin MD Insurance Concerns 02/16/2024 Orders Only [facility] Oncology and Hematology - [address] [place] [address] Kaleb Tomlin MD 02/15/2024 Orders Only [facility] Oncology and Hematology - Josh [address] [place] [address] Kaleb Tomlin MD Chronic anemia (Primary Dx) from Last 3 Months Family History Medical History Relation Name Comments No Known Problems Brother 1 No Known Problems Brother 2 No Known Problems Brother 3 No Known Problems Child 1 No Known Problems Child 2 No Known Problems Child 3 No Known Problems Child 4 No Known Problems Child 5 Cancer Father Diabetes Father Heart Disease Mother Relation Name Status Comments Brother 1 Brother 2 Alive Brother 3 Alive Child 1 Child 2 Alive Child 3 Alive Child 4 Alive Child 5 Alive Father Mother Social History Tobacco Use Types Packs/Day Years [...] (193 lb) 02/16/2024 3:11 PM CDT Height 175.3 cm (5' 9 ) 08/04/2023 1:19 PM CDT Body Mass Index 28.5 08/04/2023 1:19 PM CDT Plan of Treatment Health Maintenance Due Date Last Done Comments Pre-Diabetes and Diabetes Screening 1959 DTAP/TDAP/TD VACCINES (1 - Tdap) 1978 COLORECTAL SCREENING 2004 Colorectal Cancer Screening 2004 FIT-DNA Q 3 years 2004 FIT/FOBT Q 1 year 2004 Flex Sig/CT Colonography Q 5 years 2004 ZOSTER VACCINE (1 of 2) 2009 RSV VACCINE (60+ or ) (1 - Risk 60-74 years 1-dose series) 2019 INFLUENZA VACCINE (#1) 2023 PNEUMOCOCCAL VACCINE 0-64 YEARS Aged Out No longer eligible based on patient's age to complete this topic Procedures Procedure Name Priority Date/Time Associated Diagnosis Comments CBC WITH DIFFERENTIAL Routine 04/10/2024 4:17 PM SENIOR MANAGER [facility] COMPREHENSIVE METABOLIC PANEL Routine 04/10/2024 2:46 PM SENIOR MANAGER MM[facility] CHG ANTIBODY SCREEN RBC EA SERUM Routine 04/10/2024 10:58 AM SENIOR MANAGER MM[facility]E CBC WITH DIFFERENTIAL Routine 04/03/2024 10:59 AM SENIOR MANAGER [facility] COMPREHENSIVE METABOLIC PANEL Routine 03/20/2024 2:28 PM SENIOR MANAGER [facility] BASIC METABOLIC PANEL Routine 03/20/2024 1:39 PM SENIOR MANAGER [facility] CBC WITH DIFFERENTIAL Routine 03/17/2024 11:01 AM SENIOR MANAGER [facility] PROTEIN ELECTROPHORESIS, CSF Routine 02/25/2024 10:56 AM CDT KAPPA/LAMBDA LIGHT CHAINS Routine 2023 11:11 AM CDT BONE MARROW ASPIRATION & BIOPSY Routine 02/18/2024 1:52 PM CDT CBC WITH DIFFERENTIAL Routine 02/17/2024 2:20 PM CDT IGG Routine 02/17/2024 1:01 PM CDT CBC WITH DIFFERENTIAL Routine 02/16/2024 12:40 PM CDT from Last 3 Months Results * CBC WITH DIFFERENTIAL (04/10/2024 4:17 PM SENIOR MANAGER MMCOE) Only the most recent of5 resultswithin the time period is included. Blood Kaleb Tomlin MD HEMATOLOGY ORDERABLE S * COMPREHENSIVE METABOLIC PANEL (04/10/2024 2:46 PM SENIOR MANAGER MM[facility]E) Only the most recent of2 resultswithin the time period is included. Blood Kaleb Tomlin MD CHEMISTRY ORDERABLES * CHG ANTIBODY SCREEN RBC EA SERUM (04/10/2024 10:58 AM SENIOR MANAGER MMCOE) Kaleb Tomlin MD CHG - LABORATORY * BASIC METABOLIC PANEL (03/20/2024 1:39 PM SENIOR MANAGER MM[facility]E) Blood Kaleb Tomlin MD CHEMISTRY ORDERABLES * PROTEIN ELECTROPHORESIS, CSF (02/25/2024 10:56 AM CDT) Cerebrospinal fluid CEREBROSPINAL FLUID / Unknown Kaleb Tomlin MD BODY FLUIDS AND STOO LS * KAPPA/LAMBDA, FREE LIGHT CHAINS (02/21/2024 11:11 AM CDT) Blood Kaleb Tomlin MD CHEMISTRY ORDERABLES * BONE MARROW ASPIRATION AND BIOPSY (02/18/2024 1:52 PM CDT) Bone marrow Kaleb Tomlin MD PATH/CYTO ORDERABLES COM * IGG (02/17/2024 1:01 PM CDT) Blood Kaleb Tomlin MD CHEMISTRY ORDERABLES from Last 3 Months Care Teams Subsurface Augmentee Elint Operator Relationship Specialty Start Date End Date Yaya Britt MD [address] [place] [address] PCP - General Family Practice 07/13/23
--- OUTSIDE RECORDS SUMMARY | 2024-04-20 03:13 | XMS_ITS | Encounter Summary ---
Author Organization [facility] [employer] [facility] Address [address] [place] [address] Care Team Providers Care Assembler Billiard Table Name Role Phone Yaya Britt MD Primary Care Provider [phone] Encounter Details Date Type Department Care Team (Late st Contact Info) Description 02/18/2024 Orders Only [facility] Oncology and Hematology - Josh [address] [facility] [address] [place] [address] Kaleb Tomlin MD [address] [facility] [address] [place] [address] Social History Tobacco Use Types [...] Associated Diagnosis Comments CBC WITH DIFFERENTIAL Routine 02/17/2024 2:20 PM CDT IGG Routine 02/17/2024 1:01 PM CDT documented in this encounter Results * CBC WITH DIFFERENTIAL (02/17/2024 2:20 PM CDT) Blood Kaleb Tomlin MD HEMATOLOGY ORDERABLE S * IGG (02/17/2024 1:01 PM CDT) Blood Kaleb Tomlin MD CHEMISTRY ORDERABLES documented in this encounter Visit Diagnoses Not on filedocumented in this encounter Care Teams Assembler Billiard Table Relationship Specialty Start Date End Date Yaya Britt MD [address] [place] [address] PCP - General Family Practice 07/13/23 documented as of this encounter
--- OUTSIDE RECORDS SUMMARY | 2024-04-20 03:13 | XMS_ITS | Encounter Summary ---
Author Organization [facility] Address [address] [place] [address] Care Team Providers Care Commercial Census Taker Name Role Phone Yaya Britt MD Primary Care Provider [phone] Encounter Details Date Type Department Care Team (Late st Contact Info) Description 03/13/2024 Abstract [facility] Oncology and Hematology - [place] [address] [place] [address] [address] [place] [address] Kaleb Tomlin MD [address] [place] [address] Social History Tobacco Use Types [...] on filedocumented in this encounter Care Teams Commercial Census Taker Relationship Specialty Start Date End Date Yaya Britt MD [address] [place] [address] PCP - General Family Practice 07/13/23 documented as of this encounter
--- OUTSIDE RECORDS SUMMARY | 2024-04-20 03:13 | XMS_ITS | Clinical Summary ---
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 Active metoprolol XL (TOPROL-XL) [...] Atrial fibrillation (CMS/HCC) 08/06/2023 Rheumatoid arthritis of [facility] without rheumatoid factor (CMS/HCC) 01/15/2017 High risk medication use 01/15/2017 Anemia 01/15/2017 Chronic midline low back pain without sciatica 0 01/15/2017 Drug indicated 09/16/2013 Overview (08/07/2016): Encounter for long-term (current) use of high-risk Rheumatoid arthritis 09/16/2013 Overview (08/08/2016): Arthritis, rheumatoid Encounters Date Type Department Care Team Description 03/28/2024 [place] [address] Evan Mai MD 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 having achieved remission (HCC) 03/27/2024 1:30 PM FLOOR FRAMER Infusion [facility] - Infusion [address] [place] [address] 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 having achieved remission (HCC) 03/27/2024 12:30 PM FLOOR FRAMER Clinical Support [facility] - Lab Collection [address] [facility] [address] [place] [address] 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 having achieved remission (HCC) 03/21/2024 5:30 PM FLOOR FRAMER Infusion [facility] - Infusion [address] [place] [address] Anemia, unspecified type (Primary Dx); 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 having achieved remission (HCC) 03/21/2024 3:30 PM FLOOR FRAMER Infusion [facility] - Infusion [address] [facility] [address] [place] [address] 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 having achieved remission (HCC) 03/21/2024 1:40 PM FLOOR FRAMER Office Visit 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 Bone Marrow Transplant [address] [place] [phone] Donis Adams RN Acute myeloid leukemia not having achieved remission (HCC) (Primary Dx) 03/20/[address] [facility] Bone Marrow Transplant [facility] [address] [phone] Donis Aadms RN Acute myeloid leukemia not having achieved remission (HCC) (Primary Dx) 03/16/[address] [facility] Bone Marrow Transplant [facility] [address] [phone] Donis Adams RN 03/01/[address] [facility] Bone Marrow Transplant [address] [place] [phone] Evan Mai MD Acute myeloid leukemia not [...] on file Legal Sex Male 2:01 AM FLOOR FRAMER Gender Identity Not on file Sexual Orientation Not on file Obstetrics History Last Filed Vital Signs Vital Sign Reading Time Taken Comments Blood Pressure 108/65 03/27/2024 2:29 PM FLOOR FRAMER Pulse 72 03/27/2024 2:29 PM FLOOR FRAMER Temperature 36.9 ??C (98.4 ??F) 03/27/2024 1:35 PM CS T Respiratory Rate 18 03/27/2024 2:29 PM FLOOR FRAMER Oxygen Saturation 96% 03/27/2024 2:29 PM FLOOR FRAMER Inhaled Oxygen Concentration - - Weight 92.8 kg (204 lb 9.4 oz) 03/27/2024 1:35 P M FLOOR FRAMER Height 172.7 cm (5' 8 ) 12/24/2023 [...] (WGS) WITH INTERPRETATION Routine 03/27/2024 2:13 PM FLOOR FRAMER Acute myeloid leukemia not having achieved remission (HCC) MYELOSEQ HEME NGS PANEL WITH INTERPRETATION Routine 03/27/2024 2:13 PM FLOOR FRAMER Acute myeloid leukemia not having achieved remission (HCC) SURGICAL PATHOLOGY Routine 03/27/2024 2: 13 PM FLOOR FRAMER Acute myeloid leukemia not having achieved remission (HCC) FLOW LEUKEMIA/LYMPHOMA Routine 2:13 PM FLOOR FRAMER Acute myeloid leukemia not having achieved remission (HCC) CYTOGENETICS Routine 03/27/2024 2:13 PM FLOOR FRAMER Acute myeloid leukemia not having achieved remission (HCC) CYTOGENETICS TRACKING ORDER Routine 03/27/2024 2:13 PM FLOOR FRAMER Acute myeloid leukemia not having achieved remission (HCC) HEMATOLOGIC MOLECULAR ALGORITHM Routine 03/27/2024 2:13 PM FLOOR FRAMER Acute myeloid leukemia not having achieved remission (HCC) MYELOSEQ TRACKING ORDER Routine 03/27/2024 2:13 PM FLOOR FRAMER Acute myeloid leukemia not having achieved remission (HCC) CHROMOSEQ TRACKING ORDER Routine 03/27/2024 2:13 PM FLOOR FRAMER Acute myeloid leukemia not having achieved remission (HCC) EGFR Routine 03/27/2024 1:23 PM FLOOR FRAMER Acute myeloid leukemia not having achieved remission (HCC) MANUAL DIFFERENTIAL Routine 03/27/2024 1 :23 PM FLOOR FRAMER Acute myeloid leukemia not having achieved remission (HCC) CBC WITH AUTO DIFFERENTIAL Routine 03/27/2024 1:23 PM FLOOR FRAMER Acute myeloid leukemia not having achieved remission (HCC) COMPREHENSIVE METABOLIC PANEL Routine 03/27/2024 1:23 PM FLOOR FRAMER Acute myeloid leukemia not having achieved remission (HCC) TRANSFUSE RED BLOOD CELLS Timed 03/21/2024 6:29 PM FLOOR FRAMER Acute myeloid leukemia not having achieved remission (HCC) Anemia, unspecified type TRANSFUSE RED BLOOD CELLS Timed 03/21/2024 4:55 PM FLOOR FRAMER Acute myeloid leukemia not having achieved remission (HCC) Anemia, unspecified type B CHECK SAMPLE STAT 03/21/2024 2:48 PM FLOOR FRAMER PREPARE RBC Timed 03/21/2024 2:46 PM FLOOR FRAMER Acute myeloid leukemia not having achieved remission (HCC) Anemia, unspecified type DIFFERENTIAL AUTO STAT 03/21/2024 1:0 5 PM FLOOR FRAMER Acute myeloid leukemia not having achieved remission (HCC) CBC WITH AUTO DIFFERENTIAL STAT 03/21/2024 1:05 PM FLOOR FRAMER Acute myeloid leukemia not having achieved remission (HCC) EGFR STAT 03/21/2024 12:59 PM FLOOR FRAMER Acute myeloid leukemia not having achieved remission (HCC) URIC ACID Routine 03/21/2024 12:59 PM FLOOR FRAMER Acute myeloid leukemia not having achieved remission (HCC) MAGNESIUM Routine 03/21/2024 12:59 PM FLOOR FRAMER Acute myeloid leukemia not having achieved remission (HCC) PHOSPHORUS Routine 03/21/2024 12:59 PM FLOOR FRAMER Acute myeloid leukemia not having achieved remission (HCC) TYPE AND SCREEN STAT 03/21/2024 12:59 PM FLOOR FRAMER Acute myeloid leukemia not having achieved remission (HCC) COMPREHENSIVE METABOLIC PANEL STAT 03/21/2024 12:59 PM FLOOR FRAMER Acute myeloid leukemia not having achieved remission (HCC) LACTATE DEHYDROGENASE STAT 03/21/2024 12:59 PM FLOOR FRAMER Acute myeloid leukemia not having achieved remission (HCC) CMV, IGG STAT 03/21/2024 12:59 PM FLOOR FRAMER Acute myeloid leukemia not having achieved remission (HCC) from Last 3 Months Results * Cytogenetics Specimen Tracking Bone marrow (03/27/2024 2:13 PM FLOOR FRAMER) [employer]etics Tracking Order Received Bone marrow 03/27/2024 2:13 PM FLOOR FRAMER 03/27/2024 5:26 PM FLOOR FRAMER Narrative CAITLIN ANDERSON - 03/28/2024 9:48 AM FLOOR FRAMER Please read the Cytogenetics Epic requisition for specimen collection requirements. us Evan Mai MD LAB BODY FLUIDS AND STOOLS ORD ERABLES Final Result CAITLIN ANDERSON [facility] Department [place] [address] * Cytogenetics Bone marrow (03/27/2024 2:13 PM FLOOR FRAMER) Bone marrow (Bone Marrow Biopsy) 03/27/2024 2:13 PM FLOOR FRAMER 03/27/2024 2:13 PM FLOOR FRAMER Narrative [facility] DIAG[facility]IC [facility] - CYTOGENETICS - 04/11/2024 2:17 PM FLOOR FRAMER [facility] results best viewed via link to PDF [facility] Department of Pathol [address] [place] [address] ? Patient Information ? Name: ??KELLEE PALACIOS [place]. SR. ? Gender: ??M ? : ??1960 (Age: 63) ? Tissue: ??Bone Marrow w/ FISH ? Visit Information ? Hospital #: ? [id number] ? Facility: ? [facility] ? Service: ? WUPT ? Location: ? UNKNOWN ? Patient Type: ? WUPT-EPIC ? Specimen Information: ? Culture #: ??[id number] ? Date Collected: ??03/27/2024 ? Date Accessioned: [...] Resolution: ??400Subculture: ?? 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 LIMITED COMPLEX KARYOTYPE FISH FINDINGS: ?DELETION OF EGR1 (5q) - 18.5% ?TRISOMY OF RUNX1 (21q) - 8.5% ?MONOSOMY OF ASS1/ABL1 (9q) - 16.5% ?NO EVIDENCE OF MECOM REARRANGEMENT ?NO EVIDENCE OF DELETION/MONOSOMY OF O8L414 (7q) ?NO EVIDENCE OF UUTT1W7::RUNX1, BCR::ABL1, KMT2A, PML::GRANT ? OR CBFB REARRANGEMENT INTERPRETATION: Only six metaphase cells were obtained and analyzed from an unstimulated culture. ??All six metaphase cells analyzed revealed the clonal aberrations described above in a composite karyotype (cp). ??Due to yqmc-hx-gatx heterogeneity, the karyotypic description is composite, listing [...] Hybridization (FISH) analysis are performed using the [employer] Imaging System. Report Electronically Reviewed and Signed Out By Hima Bernal, PhD, FACMGDate Reported: ??4Associate Professor, Division of Genomic & Molecular Pathology FLUORESCENCE IN-SITU HYBRIDIZATION [FISH] Karyotype: nuc bree(C4S055/J5S8536x6,EGR1x1)[37/200],(TRIM3L5d6,AFCD0d0)[17/200],(ASS1x1,ABL1x1, BCRx2 )[33/200], (Y7Z065,KMT2A,PML,CBFB,GRANT)x2[200] Diagnosis: FISH FINDINGS: ?DELETION OF EGR1 (5q) - 18.5% ?TRISOMY OF RUNX1 (21q) - 8.5% ?MONOSOMY OF ASS1/ABL1 (9q) - 16.5% ?NO EVIDENCE OF DELETION/MONOSOMY OF E6X138 (7q) ? NO EVIDENCE OF CYJQ7I6::RUNX1, BCR::ABL1, KMT2A, PML::GRANT OR CBFB ? REARRANGEMENT Pending FISH: ?FISH for MECOM INTERPRETATION: FISH analysis was performed with a panel of [employer] and [employer] probes for AML and is interpreted as ABNORMAL for the EGR1, SDLZ5C9::RUNX1, and BCR::ABL1 probe sets. 1) FISH evaluation for a 5q deletion was performed on nuclei with the EGR1,F0Q903/Z8T6823 Dual Color Probe ([employer] for EGR1 at 5q31.1 and the control K3I887/G0V1380 at 5p15.31 and is interpreted as ABNORMAL. ??One EGR1 hybridization signal and two J0M355/K6M4624 control hybridization signals were observed in 37/200 nuclei, which exceeds the normal range (up to 3.1%) established for this probe in the Clinical Genomics Laboratory at [facility]. 2) FISH evaluation for a BKNU2A4::RUNX1 rearrangement was performed on nuclei with the LSI KYVJ3F3::RUNX1 Dual Color, Dual Fusion Translocation Probe ([employer] for GGXS9F7(ETO) at 8q22 and RUNX1(AML1) at 21q22 and is interpreted as ABNORMAL, although an KTMM0O4::RUNX1 rearrangement was not detected. ??An abnormal hybridization pattern consisting of two WPQG3L8 hybridization signals and three RUNX1 hybridization signals was observed in 17/200 nuclei, indicative of trisomy for the corresponding region on chromosome 21. ??This value exceeds the normal range (up to 1%) established for this probe in the Clinical Genomics Laboratory at [facility]. ?? 3) FISH evaluation for a [...] in the Clinical Genomics Laboratory at [facility]. 4) FISH evaluation for a 7q deletion was performed on nuclei with the LSI R9Y392/D7Z1 Dual Color Probe ([employer] for A0L344 at 7q31 and the control D7Z1 at 7p11.1-q11.1 and is interpreted as NORMAL. ??Two G8Z432 hybridization signals and two D7Z1 control hybridization signals were observed in 200/200 nuclei, which is within the normal range established for this probe set in the Clinical Genomics Laboratory at [facility]. ??Up to 1% of cells in normal samples can show an apparent 7q deletion using this probe. ??A normal X0A868 FISH finding can result from the absence [...] in the Clinical Genomics Laboratory at [facility]. ??Up to 1% of cells in [...] in the Clinical Genomics Laboratory at [facility]. Variant signal pattern was observed in [...] Dual Color, Break Apart Rearrangement Probe ([employer] at 16q22 and is interpreted as NORMAL. ??No rearrangement was observed in 200/200 nuclei, which is within the normal range established for this probe in the Clinical Genomics Laboratory at [facility]. ??Up to 2% of cells in [...] developed and its performance characteristics determined by [facility]. It has not been cleared or approved by the FDA. The laboratory is regulated under CLIA as qualified to perform high-complexity testing. This test is used for clinical purposes. It should not be regarded as investigational or for research. Chromosome analysis and Fluorescence In Situ Hybridization (FISH) analysis are performed using the [employer] Imaging System. Report Electronically Reviewed and Signed Out By Asim Bear, PhD, FACMGDate Reported: ??4Assistant Professor, Division of Genomic & Molecular Pathology REFLEX FLUORESCENCE IN-SITU HYBRIDIZATION [FISH] Karyotype: nuc bree(MECOMx2)[200] Diagnosis: ?? FISH FINDINGS: ?NO EVIDENCE OF MECOM (3q) REARRANGEMENT INTERPRETATION: FISH evaluation for an EVI1(MECOM) rearrangement was performed on nuclei with the BETHANY Dual Color, Break Apart Rearrangement Probe ([employer]) at 3q26 and is interpreted as NORMAL. ??No rearrangement was observed in 199/200 nuclei, which is within the normal range established for this probe in the Clinical Genomics Laboratory at [facility]. ??Up to 2% of cells in [...] developed and its performance characteristics determined by [facility]. It has not been cleared or approved by the FDA. The laboratory is regulated under CLIA as qualified to perform high-complexity testing. This test is used for clinical purposes. It should not be regarded as investigational or for research. Chromosome analysis and Fluorescence In Situ Hybridization (FISH) analysis are performed using the [employer]vector Cytovision Imaging System. Report Electronically Reviewed and Signed Out By Margaret Ratliff, PhD Date Reported: ??4Assistant Professor, Division of Genomic & Molecular Pathology Evan Mai MD LAB GENETIC TESTING Final Resu lt [facility] DIAGNO[facility]IC [facility] - CYTOGENETICS [address] [place] [address] * ChromoSeq tracking order Bone marrow (03/27/2024 2:13 PM FLOOR FRAMER) ChromoSeq Tracking Order Received Bone marrow 03/27/2024 2:13 PM FLOOR FRAMER 03/27/2024 5:26 PM FLOOR FRAMER Narrative CAITLIN ANDERSON - 03/28/2024 9:48 AM FLOOR FRAMER Specimen type (select one):->Marrow Evan Mai MD LAB BODY FLUIDS AND STOOLS ORD ERABLES Final Result [facility] Department [place] [address] * ChromoSeq - Heme Genetic Profiling (WGS) with interpretation Bone marrow (03/27/2024 2:13 PM FLOOR FRAMER) Bone marrow (Bone Marrow Biopsy) 03/27/2024 2:13 PM FLOOR FRAMER 03/28/2024 9:45 AM FLOOR FRAMER Narrative [facility] DIAG[facility]IC [facility] - CYTOGENETICS - 04/11/2024 10:[address] [facility] Pathology Services [address] [place], [place] [address] Final Report Patient Name: KELLEE PALACIOS SR. Address: [address] [place] [address] Gender: M : 1960 (Age: 63) Accessioned: 03/28/2024 Taken: 03/27/2024 Received: 03/28/2024 Physician(s): Evan Morataya MD Service: [facility] Location: [facility] #: [id number] Patient Type: [facility] ChromoSeq Molecular DiagnosticsReported:04/11/2024 Tissue type: Bone [...] identified, consistent with the corresponding cytogenetic studies ([id number]) and a complex karyotype. In addition, a [...] [facility]/ZIP Co de Phone Number [facility] DIAG[facility]IC [facility] - CYTOGENETICS [address] [place] [address] * MyeloSeq tracking order Bone marrow (03/27/2024 2:13 PM FLOOR FRAMER) MyeloSeq Received Bone marrow 03/27/2024 2:13 PM FLOOR FRAMER 03/27/2024 5:26 PM FLOOR FRAMER Narrative [facility] - 03/28/2024 9:48 AM FLOOR FRAMER Specimen type (select one):->Marrow Evan Mai MD LAB BODY FLUIDS AND STOOLS ORD ERABLES Final Result Performing Organization Address City/[facility]/ZIP Co de Phone Number [facility] Department [place] [address] * Diagnosis MyeloSeq Heme NGS Panel with Interpretation Bone marrow (03/27/2024 2:13 PM FLOOR FRAMER) Bone marrow (Bone Marrow Biopsy) 03/27/2024 2:13 PM FLOOR FRAMER 03/28/2024 9:45 AM FLOOR FRAMER Narrative [facility] DI[facility] - CYTOGENETICS - 04/12/2024 10:[address] [facility] Pathology Services [address] [place], [place] [address] Final Report Patient Name: KELLEE PALACIOS SR. Address: [address] [place] [address] [place], [place] [address] Gender: M : 1960 (Age: 63) Accessioned: 03/28/2024 Taken: 03/27/2024 Received: 03/28/2024 Physician(s): Evan Morataya MD Service: [facility] Location: [facility] #: [id number] Patient Type: [facility] MyeloSeq Molecular DiagnosticsReported:04/12/2024 Varients Detected: ? [...] presents for evaluation. Corresponding bone marrow biopsy ([id number]) shows a markedly hypercellular marrow with 5% blasts and megakaryocytic dysplasia. Corresponding cytogenetic studies ([id number]) show a complex karyotype. Specimen site: Bone marrow Variant Detail: ? Gene ? Location (GR38) ? Reference allele ? Variant allele ? Transcript:Coding change ? Population Frequency* ? TP53 ? [id number] ? C ? T ? [id number]:c.517G>A ? none*The population allele frequency represents the [...] the CLIA Licensed Environment laboratory at the [facility] [employer] [place] [facility] ([facility], CLIA #[id number], CAP #[id number]), Dr. Sammy Johnson MD, PhD, FCAP, [employer]. [address] [place] [address], [place] [address] [place], [place] [id number] . The [facility] laboratory is regulated under CLIA as certified to perform high-complexity testing. Interpretation of sequencing results and case sign out is performed by Pathology and Immunology faculty in the Division of Genomic and Molecular Pathology ([facility], CLIA #[id number], CAP #[id number]) Dr. Sujatha Littlejohn Ph.D., [employer]. [facility] Laboratory, [address], [address], [place] [id number] [phone] . The [facility] Laboratory is regulated [...] 30GBases of sequencing data generated on an in2nite Plus. This test has been validated according to CAP guidelines for the detection of single nucleotide variants (SNVs) and indels (max validated size 117bp). This assay has two limits of detection: for new variants (not previously reported by [employer]) sensitivity is limited to 2% VAF; for [...] information and correlations are subject to change management coordinator time in response to future scientific [...] Mai MD LAB PATHOLOGY ORDERABLES Final Result [facility] DIAG[facility]IC [facility] - CYTOGENETICS [address] [place] [address] * Flow Leukemia/Lymphoma Bone marrow (03/27/2024 2:13 PM FLOOR FRAMER) Kaufman Stain Test Completed Leukemia/Lymp johana Result See separate Surgical Pathology report. CAITLIN ANDERSON Bone marrow 03/27/2024 2:13 PM FLOOR FRAMER 03/27/2024 6:37 PM FLOOR FRAMER Narrative CAITLIN [facility] - 03/28/2024 8:22 AM FLOOR FRAMER Tube information: Green top (Sodium Heparin) us Evan Mai MD LAB PATHOLOGY ORDERABLES Final Result Performing Organization Address City/[facility]/ZIP Co de Phone Number [facility] Department [place] [address] * Hematologic Molecular Algorithm Bone marrow (03/27/2024 2:13 PM FLOOR FRAMER) Heme Molecular Algorithm Received Bone marrow 03/27/2024 2:13 PM FLOOR FRAMER 03/28/2024 9:29 AM FLOOR FRAMER Narrative CERNER [facility] - 04/05/2024 11:34 AM FLOOR FRAMER Tube information: [facility] top Clinical History / Treatment Plan:->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 Select diagnosis - - Appropriate molecular tests will be performed based on histopathological diagnosis.->AML 04/02/2024 - HMA complete, no additional testing indicated. us Evan Mai MD LAB BODY FLUIDS AND STOOLS ORD ERABLES Final Result Performing Organization Address [facility] Co de Phone Number [facility] Department [place] [address] * Surgical pathology (03/27/2024 2:13 PM FLOOR FRAMER) Tissue (Bone Marrow Biopsy) 03/27/2024 2:13 PM FLOOR FRAMER 03/27/2024 5:22 PM FLOOR FRAMER Narrative PATHOLOGY [facility] - 03/29/2024 2:40 PM FLOOR FRAMER EPIC results best viewed via link to PDF [facility]i [facility] Laboratory [place] [address] Note to Patients: This report may contain [...] Gender: ??M : ??1960 (Age: 63) Address: ??[facility] [place] ??[address] Hospital #: ??[id number] Taken:03/27/2024 Received:03/27/2024 Reported: 03/29/2024 Patient Type: [facility] [...] 3 ?The differential count may not be media sales representative of marrow elements ? Bone [...] cytometry specimen was examined for internal quality assurance clerk purposes. Flow cytometry was performed using antibodies to the following cellular antigens: CD45, CD34, CD19, CD20, [place], Lambda, CD10, CD5, CD200, CD38, CD2, CD3, [...] Surgical Pathology and Flow Cytometry Departments at [facility] as part of an ongoing software quality specialist program and in compliance with [...] Surgical Pathology and Flow Cytometry Departments of [facility]. ??It has not been cleared or approved by the U. S. Food and Drug Administration. IMAGES AND SCANNED DOCUMENTS, IF INCLUDED, ONLY VIEWABLE IN PDF VERSION OF REPORT Evan Mai MD LAB PATHOLOGY ORDERABLES Final Result PATHOLOGY [facility] 3rd Floor [place], [place] [phone] * eGFR (03/27/2024 1:23 PM FLOOR FRAMER) eGFR >90 >=60 mL/min/1. 73 m2 Comment: [...] last reviewed 2021. Blood 03/27/2024 1:23 PM FLOOR FRAMER 03/27/2024 1:36 PM FLOOR FRAMER us Evan Mai MD LAB BLOOD ORDERABLES Final Res ult [facility] Department [place] [address] * (ABNORMAL) CBC with auto differential (03/27/2024 1:23 PM FLOOR FRAMER) WBC 1.7(L) 3.8 - 9.9 K/cumm Comment:Testing performed by : [facility] Heme Lab, [address] [place] [address] Hgb 7.9(L) 13.0 - 17.5 g/dL [facility] Comment:Testing performed by : [facility] Heme Lab, [address] [place] [address] Hct 24.2(L) 38.9 - 50.3 % [facility] Comment:Testing performed by : [facility] Heme Lab, [address] [place] [address] Plt 21(L) 150 - 400 K/cumm [facility] Comment:Testing performed by : [facility], [address] [place] [address] MPV 8.2 6.8 - 10.4 fL [facility] Comment:Testing performed by : [facility], [address] [place] [address] RBC 2.80(L) 4.30 - 5.80 M/cumm [facility] Comment:Testing performed by : [facility], [address] [place] [address] MCV 86.5 81.3 - 96.4 fL [facility] Comment:Testing performed by : [facility], [address] [place] [address] MCH 28.3 27.1 - 33.3 pg [facility] Comment:Testing performed by : [facility], [address] [place] [address] MCHC 32.7 32.3 - 35.7 g/dL [facility] Comment:Testing performed by : [facility], [address] [place] [address] RDW CV 18.4(H) 11.1 - 14.9 % [facility] Comment:Testing performed by : [facility], [address] [place] [address] NRBC abs 0.00 0.00 - 0.01 K/cumm [facility] Comment:Testing performed by : [facility], [address] [place] [address] Blood 03/27/2024 1:23 PM FLOOR FRAMER 03/27/2024 1:32 PM FLOOR FRAMER us Evan Mai MD LAB BLOOD ORDERABLES Edited Re bigg - Final [facility] Department [place] [address] * (ABNORMAL) Manual Differential (03/27/2024 1:23 PM FLOOR FRAMER) Cells Counted 147 Comment:Testing performed by : [facility], [address] [place] [address] Neutrophil abs 0.5(L) 1.5 - 6.5 K/cumm [facility] Comment:Testing performed by : [facility], [address] [place] [address] Lymphocyte abs 0.9 0.8 - 3.3 K/cumm [facility] Comment:Testing performed by : [facility], [address] [place] [phone] Monocyte abs 0.0(L) 0.2 - 0.8 K/cumm [facility] Comment:Testing performed by : [facility], [address] [place] [phone] Eosinophil abs 0.0 0.0 - 0.5 K/cumm [facility] Comment:Testing performed by : [facility], [address] [place] [phone] Basophil abs 0.0 0.0 - 0.1 K/cumm [facility] Comment:Testing performed by : [facility], [address] [place] [phone] Neutrophil pct 31.0 % [facility] Comment: Interpretive Data Percent cell count reference ranges are not reported, since discordance with absolute values may lead to misinterpretation of CBC data. Current Interpretive Data was last revised on 2017. Testing performed by: [facility], [address] [place] [phone] Lymphocyte pct 54.0 % [facility] Comment: Interpretive Data Percent cell count reference ranges are not reported, since discordance with absolute values may lead to misinterpretation of CBC data. Current Interpretive Data was last revised on 2017. Testing performed by: [facility], [address] [place] [phone] Monocyte pct 0.0 % [facility] Comment: Interpretive Data Percent cell count reference ranges are not reported, since discordance with absolute values may lead to misinterpretation of CBC data. Current Interpretive Data was last revised on 2017. Testing performed by: [facility], [address] [place] [phone] Eosinophil pct 1.0 % [facility] Comment: Interpretive Data Percent cell count reference ranges are not reported, since discordance with absolute values may lead to misinterpretation of CBC data. Current Interpretive Data was last revised on 2017. Testing performed by: [facility], [address] [place] [phone] Basophil pct 1.0 % [facility] Comment: Interpretive Data Percent cell count reference ranges are not reported, since discordance with absolute values may lead to misinterpretation of CBC data. Current Interpretive Data was last revised on 2017. Testing performed by: [facility], [address] [place], [place] [phone] Metamyelocyte pct 3.0 % [facility] Comment:Testing performed by : [facility], [address] [place], [place] [phone] Myelocyte pct 1.0 % [facility] Comment:Testing performed by : [facility], [address] [place], [place] [phone] Variant lymph pct 10.0 % [facility] Comment:Testing performed by : [facility], [address] [place] [phone] Smudge cells, qual Present(A ) [facility] Comment:Testing performed by : [facility], [address] [place], [place] [phone] Polychromasia 1+(A) [facility] Comment:Testing performed by : [facility], [address] [place], [place] [phone] Hypochromasia 1+(A) [facility] Comment:Testing performed by : [facility], [address] [place], [place] [phone] Anisocytosis 1+(A) [facility] Comment:Testing performed by : [facility], [address] [place], [place] [phone] Poikilocytosis 1+(A) [facility] Comment:Testing performed by : [facility], [address] [place], [place] [phone] Microcytes 1+(A) [facility] Comment:Testing performed by : [facility], [address] [place], [place] [phone] Macrocytes 1+(A) [facility] Comment:Testing performed by : [facility], [address] [place], [place] [phone] Schistocytes 1+(A) [facility] Comment:Testing performed by : [facility], [address] [place], [place] [phone] Elliptocytes 1+(A) [facility] Comment:Testing performed by : [facility], [facility] [place] [phone] Target cells 1+(A) [facility] Comment:Testing performed by : [facility], [address] [place] [phone] Platelet estimate Decreased (A) [facility] Comment:Testing performed by : [facility], [address] [place] [phone] Blood 03/27/2024 1:23 PM FLOOR FRAMER 03/27/2024 1:32 PM FLOOR FRAMER us Evan Mai MD LAB BLOOD ORDERABLES Final Res ult [facility] Department [place] [address] * (ABNORMAL) Comprehensive metabolic panel (03/27/2024 1:23 PM FLOOR FRAMER) Sodium 132(L) 135 - 145 mmol/L Potassium, pl 3.3 3.3 - 4.9 mmol/L [facility] Chloride 102 97 - 110 mmol/L [facility] CO2 25 22 - 32 mmol/L [facility] Anion gap 5 2 - 15 mmol/L [facility] BUN 20 6 - 25 mg/dL [facility] Creatinine 0.62(L) 0.80 - 1.30 mg/dL [facility] Glucose 105 70 - 199 mg/dL [facility] Comment: Interpretive Data Fasting glucose >/= [...] 2022. Calcium 8.4(L) 8.5 - 10.3 mg/dL [facility] Bilirubin, total 0.6 0.1 - 1.2 mg/dL [facility] Protein, pl 7.0 6.5 - 8.5 g/dL [facility] Albumin 3.0(L) 3.5 - 5.0 g/dL [facility] Alk phos 80 40 - 130 Units/L [facility] ALT 7 7 - 55 Units/L [facility] AST 13 10 - 50 Units/L [facility] Blood 03/27/2024 1:23 PM FLOOR FRAMER 03/27/2024 1:36 PM FLOOR FRAMER us Evan Mai MD LAB BLOOD ORDERABLES Final Res ult Performing Organization Address [facility] Co de Phone Number [facility] [employer] [place] [place] [address] * Transfuse RBC (03/21/2024 8:18 PM FLOOR FRAMER) Blood us Evan Mai MD BLOOD TRANSFUSION ORDERABLES F inal Result * Transfuse RBC (03/21/2024 6:29 PM FLOOR FRAMER) Blood us Evan Mai MD BLOOD TRANSFUSION ORDERABLES F inal Result * Check Sample (03/21/2024 2:48 PM FLOOR FRAMER) ABO Rh A Positive [facility] OTHER 03/21/2024 2:48 PM FLOOR FRAMER 03/21/2024 3:43 PM FLOOR FRAMER us Evan Mai MD LAB BLOOD ORDERABLES Final Res ult Performing Organization Address [facility] Co de Phone Number [facility] [place] [address] [facility] * Prepare RBC: 2 Units (03/21/2024 2:46 PM FLOOR FRAMER) Pathologist [facility] Product code [id number] [facility] Unit Number [id number]- T [facility] Product Blood Type APOS [facility] Dispense Status PRESUMED TRANSFUSED [facility] Product code [id number] Unit Number [id number] [facility] Product Blood Type APOS [facility] Dispense Status PRESUMED TRANSFUSED [facility] Blood 03/21/2024 2:46 PM FLOOR FRAMER 03/21/2024 2:45 PM FLOOR FRAMER Narrative [facility] - 03/22/2024 12:55 AM FLOOR FRAMER Are special requirements needed? (All products are leukoreduced and CMV- safe)->Yes Evan Mai MD BLOOD BANK PRODUCT ORDERABLES Final Result [facility] Department [place] [address] * (ABNORMAL) Differential, auto (03/21/2024 1:05 PM FLOOR FRAMER) [facility] Neutrophil abs 0.3(L) 1.5 - 6.5 K/cumm Comment:Testing performed by : [facility], [address] [place], [place] [phone] Lymphocyte abs 0.4(L) 0.8 - 3.3 K/cumm [facility] Comment:Testing performed by : [facility], [address] [place], [place] [phone] Monocyte abs 0.1(L) 0.2 - 0.8 K/cumm [facility] Comment:Testing performed by : [facility], [address] [place] [phone] Eosinophil abs 0.0 0.0 - 0.5 K/cumm [facility] Comment:Testing performed by : [facility], [address] [place], [place] [phone] Basophil abs 0.0 0.0 - 0.1 K/cumm [facility] Comment:Testing performed by : [facility], [address], [place] [address] Neutrophil pct 36.7 % [facility] Comment: Interpretive Data Percent cell count reference ranges are not reported, since discordance with absolute values may lead to misinterpretation of CBC data. Current Interpretive Data was last revised on 2017. Testing performed by: [facility], [address] [place] [phone] Lymphocyte pct 52.1 % [facility] Comment: Interpretive Data Percent cell count reference ranges are not reported, since discordance with absolute values may lead to misinterpretation of CBC data. Current Interpretive Data was last revised on 2017. Testing performed by: [facility], [address] [place] [phone] Monocyte pct 9.0 % [facility] Comment: Interpretive Data Percent cell count reference ranges are not reported, since discordance with absolute values may lead to misinterpretation of CBC data. Current Interpretive Data was last revised on 2017. Testing performed by: [facility], [address] [place] [phone] Eosinophil pct 0.1 % [facility] Comment: Interpretive Data Percent cell count reference ranges are not reported, since discordance with absolute values may lead to misinterpretation of CBC data. Current Interpretive Data was last revised on 2017. Testing performed by: [facility], [address] [place] [phone] Basophil pct 2.1 % [facility] Comment: Interpretive Data Percent cell count reference ranges are not reported, since discordance with absolute values may lead to misinterpretation of CBC data. Current Interpretive Data was last revised on 2017. Testing performed by: [facility], [address] [place] [phone] Blood 03/21/2024 1:05 PM FLOOR FRAMER 03/21/2024 1:06 PM FLOOR FRAMER us Evan Mai MD LAB BLOOD ORDERABLES Final Res ult [facility] Department of Laboratories [place] [id number] * (ABNORMAL) CBC with auto differential (03/21/2024 1:05 PM FLOOR FRAMER) WBC 0.7(L) 3.8 - 9.9 K/cumm Comment:Testing performed by : [facility], [address] [place] [address] Hgb 6.5(L) 13.0 - 17.5 g/dL [facility] Comment: Critical Result HGB:6.5 Called to and read back by: GERMAINE ADAMS RN at: 03/21/2024 13:32:52 by:DAVY. Testing performed by: [facility], [address] [place] [address] Hct 19.8(L) 38.9 - 50.3 % [facility] Comment:Testing performed by : [facility], [address] [place] [address] Plt 45(L) 150 - 400 K/cumm [facility] Comment:Testing performed by : [facility], [address] [place] [address] MPV 8.3 6.8 - 10.4 fL [facility] Comment:Testing performed by : [facility], [address] [place] [address] RBC 2.31(L) 4.30 - 5.80 M/cumm [facility] Comment:Testing performed by : [facility], [address] [place] [address] MCV 85.7 81.3 - 96.4 fL [facility] Comment:Testing performed by : [facility], [address] [place] [address] MCH 28.1 27.1 - 33.3 pg [facility] Comment:Testing performed by : [facility], [address] [place] [address] MCHC 32.7 32.3 - 35.7 g/dL [facility] Comment:Testing performed by : [facility], [address] [place] [phone] RDW CV 20.4(H) 11.1 - 14.9 % [facility] Comment:Testing performed by : [facility], [address] [place] [phone] NRBC abs 0.00 0.00 - 0.01 K/cumm [facility] Comment:Testing performed by : [facility], [facility] [place] [phone] Blood 03/21/2024 1:05 PM FLOOR FRAMER 03/21/2024 1:06 PM FLOOR FRAMER us Evan Mai MD LAB BLOOD ORDERABLES Final Res ult [facility] Department [place] [address] * eGFR (03/21/2024 12:59 PM FLOOR FRAMER) eGFR >90 >=60 mL/min/1. 73 m2 Comment: [...] reviewed 2021. Blood 03/21/2024 12:5 9 PM FLOOR FRAMER 03/21/2024 1:11 PM FLOOR FRAMER Evan Mai MD LAB BLOOD ORDERABLES Final Res ult Performing Organization Address [facility] [place] [address] * (ABNORMAL) CMV, IgG Blood (03/21/2024 12:59 PM FLOOR FRAMER) CMV IgG Positive( A) Negative Comment: Interpretive [...] CMV infection. Blood 03/21/2024 12:5 9 PM FLOOR FRAMER 03/21/2024 2:17 PM FLOOR FRAMER Result [facility] Evan Mai MD LAB MICROBIOLOGY - GENERAL ORD ERABLES Final Result Performing Organization Address [facility] [place] [address] * Type and screen (03/21/2024 12:59 PM FLOOR FRAMER) ABO Rh A Positive Adalgisa, indirect Negative [facility] Blood 03/21/2024 12:5 9 PM FLOOR FRAMER 03/21/2024 1:29 PM FLOOR FRAMER Narrative [facility] - 03/21/2024 2:27 PM FLOOR FRAMER Has the patient had Daratumumab or Isatuximab in the past 6 months?->Unknown us Evan Mai MD LAB BLOOD BANK TEST ORDERABLES Final Result Performing Organization Address [facility] Co de Phone Number [facility] [place] [address] * Uric acid (03/21/2024 12:59 PM FLOOR FRAMER) Uric acid 4.7 3.0 - 8.0 mg/dL Blood 03/21/2024 12:5 9 PM FLOOR FRAMER 03/21/2024 1:11 PM FLOOR FRAMER Evan Mai MD LAB BLOOD ORDERABLES Final Res ult Performing Organization Address [facility] [place] [address] * Phosphorus (03/21/2024 12:59 PM FLOOR FRAMER) Phosphorus, pl 4.0 2.3 - 4.5 mg/dL Blood 03/21/2024 12:5 9 PM FLOOR FRAMER 03/21/2024 1:11 PM FLOOR FRAMER Evan Mai MD LAB BLOOD ORDERABLES Final Res ult Performing Organization Address [facility] Co de Phone Number [facility] Department [place] [address] * Magnesium (03/21/2024 12:59 PM FLOOR FRAMER) Magnesium 2.2 1.4 - 2.5 mg/dL Blood 03/21/2024 12:5 9 PM FLOOR FRAMER 03/21/2024 1:11 PM FLOOR FRAMER us Evan Mai MD LAB BLOOD ORDERABLES Final Res ult Performing Organization Address [facility] Co de Phone Number [facility] [place] [address] * (ABNORMAL) Lactate dehydrogenase (LD) (03/21/2024 12:59 PM FLOOR FRAMER) Lactate dehydrogenase (LDH) 267(H) 100 - 250 Units/L Blood 03/21/2024 12:5 9 PM FLOOR FRAMER 03/21/2024 1:11 PM FLOOR FRAMER Evan Mai MD LAB BLOOD ORDERABLES Final Res ult [facility] Department [place] [address] * (ABNORMAL) Comprehensive metabolic panel (03/21/2024 12:59 PM FLOOR FRAMER) Pathologist [facility] Sodium 133(L) 135 - 145 mmol/L Potassium, pl 4.7 3.3 - 4.9 mmol/L [facility] Chloride 103 97 - 110 mmol/L [facility] CO2 27 22 - 32 mmol/L [facility] Anion gap 3 2 - 15 mmol/L [facility] BUN 26(H) 6 - 25 mg/dL [facility] Creatinine 0.77(L) 0.80 - 1.30 mg/dL [facility] Glucose 119 70 - 199 mg/dL [facility] Comment: Interpretive Data Fasting glucose >/= [...] 2022. Calcium 9.2 8.5 - 10.3 mg/dL [facility] Bilirubin, total 0.4 0.1 - 1.2 mg/dL [facility] Protein, pl 8.5 6.5 - 8.5 g/dL [facility] Albumin 3.2(L) 3.5 - 5.0 g/dL [facility] Alk phos 88 40 - 130 Units/L [facility] ALT 5(L) 7 - 55 Units/L [facility] AST 14 10 - 50 Units/L [facility] Blood 03/21/2024 12:5 9 PM FLOOR FRAMER 03/21/2024 1:11 PM FLOOR FRAMER us Evan Mai MD LAB BLOOD ORDERABLES Final Res ult [facility] Department [place] [address] from Last 3 Months Insurance [employer] OPEN ACCESS [employer] OPEN ACCESS Care Teams Getter Filler Relationship Specialty Start Date End Date Yaya Britt MD PCP - General 07/31/16 Kaleb Tomlin MD [address] [facility] [address] [address] Referring Physician Hematology 02/29/24 Evan Mai MD 1 [facility] DIV [place] [address] Consulting Physician Internal Medicine 03/01/24
--- OUTSIDE RECORDS SUMMARY | 2024-04-20 03:14 | XMS_ITS | Encounter Summary ---
Author Organization [facility] Healthcare Address [address] [place] [address] Care Team Providers Care Director Of Customer Service Name Role Phone Yaya Britt MD Primary Care Provider [phone] Reason for Visit * Diagnostic Imaging (Routine) - Closed Specialty Diagnoses / Procedures Referred By Contac t Referred To Contact Diagnoses Left knee pain, unspecified chronicity Procedures XR Knee Left 4 or More Views Lul Yusuf MD [address] [place] [address] [address] [address] Phone: tel: fax: [facility] Referral ID Status Reason Start Date Expiration Date Visits Re quested Visits Authorized [id number] Closed 12/24/2023 01/22/2025 1 1 Encounter Details Date Type Department Care Team (Latest Contact Info) Description 12/24/2023 8:55 AM CDT Ancillary Procedure [facility] Medical [facility] Imaging at [address] [phone] Left knee pain, unspecified chronicity [...] on file 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
--- OUTSIDE RECORDS SUMMARY | 2024-04-20 03:14 | XMS_ITS | Encounter Summary ---
Author Organization [facility] Healthcare Address [address] [place] [address] Care Team Providers Care Paraprofessional Aide Name Role Phone Yaya Britt MD Primary Care Provider [phone] Reason for Referral * Diagnostic Imaging (Routine) - Closed Specialty Diagnoses / Procedures Referred By Contac t Referred To Contact Diagnoses Left knee pain, unspecified chronicity Procedures XR Knee Left 4 or More Views Lul Yusuf MD [address] [place] [address] [place] [address] Phone: tel: fax: [facility] Referral ID Status Reason Start Date Expiration Date Visits Re quested Visits Authorized [id number] Closed 12/24/2023 01/22/2025 1 1 * Diagnostic Imaging (Routine) - Closed Specialty Diagnoses / Procedures Referred By Contac t Referred To Contact Diagnoses Left knee pain, unspecified chronicity Procedures XR Pelvis 1 or 2 Views Lul Yusuf MD [address] [facility] [address] [address] Phone: tel: fax: [facility] Referral ID Status Reason Start Date Expiration Date Visits Re quested Visits Authorized [id number] Closed 12/24/2023 01/22/2025 1 1 Reason for Visit * Reason Comments Pain Patient been dealing with left knee pain for 3 years. 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 You may receive a phone call [...] the past 2 months the problem started [id number]. His pain is sharp and achy in severe. Nothing makes it better walking and moving makes it worse his pain is continuous he has miss work because his problems he has tried anti-inflammatories pain medications braces without relief he has been referred here for surgical consultation he has seen pain management in the past. Cloth Printer completed by using [employer] speaking software, therefore, transcriptionvariances may occur. [...] AP pelvis shows no fracture subluxation dislocation [id number] degenerative changes bilaterally cam deformities bilateral femoral [...] AP pelvis shows no fracture subluxation dislocation odyg-[id number] degenerative changes bilaterally cam deformities bilateral femoral [...] chronicity documented in this encounter Care Teams Paraprofessional Aide Relationship Specialty Start Date End Date Yaya Britt MD PCP - General 07/31/16 documented as of this encounter
--- OUTSIDE RECORDS SUMMARY | 2024-04-20 03:14 | XMS_ITS | Encounter Summary ---
Author Organization [facility] Address [address] [place] [address] Phone Care Team Providers Care Follow Up Rep Name Role Phone Yaya Britt MD Primary Care Provider [phone] Kaleb Tomlin MD Unavailable [phone] Evan Mai MD Unavailable [phone] Encounter Details Date Type Department Care Team (Late st Contact Info) Description 03/20/2024 Orders Only [facility] Bone Marrow Transplant [facility]0 [facility] Floor 6 [place] [address] Donis Adams, faith healer 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
--- OUTSIDE RECORDS SUMMARY | 2024-04-20 03:14 | XMS_ITS | Encounter Summary ---
Author Organization [facility] Address [address] [place] [address] Care Team Providers Care Rebar Bender Name Role Phone Yaya Britt MD Primary Care Provider [phone] Kaleb Tomlin MD Unavailable [phone] Evan Mai MD Unavailable [phone] Reason for Visit * Reason Comments OP Infusion Encounter Details Date Type Department Care Team (Late st Contact Info) Description 03/21/2024 5:30 PM NURSE RECEPTIONIST Infusion [facility] - Infusion [address] [facility] Floor 6 [place] [address] Anemia, unspecified type (Primary Dx); Acute myeloid [...] on file 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 Gender Identity Not on file Sexual Orientation Not on file documented as of this encounter Last Filed Vital Signs Vital Sign Reading Time Taken Comments Blood Pressure 108/64 03/21/2024 6:49 PM NURSE RECEPTIONIST Pulse 58 03/21/2024 6:49 PM NURSE RECEPTIONIST Temperature 36.6 ??C (97.9 ??F) 03/21/2024 6:49 PM CS T Respiratory Rate 18 03/21/2024 5:10 PM NURSE RECEPTIONIST Oxygen Saturation 99% 03/21/2024 6:49 PM NURSE RECEPTIONIST Inhaled Oxygen Concentration - - Weight - - Height - - Body Mass Index - - documented in this encounter Plan of Treatment Not on file documented as of this encounter Procedures Procedure Name Priority Date/Time Associated Diagnosis Comments TRANSFUSE RED BLOOD CELLS Timed 03/21/2024 6:29 PM NURSE RECEPTIONIST Acute myeloid leukemia not having achieved remission (HCC) Anemia, unspecified type TRANSFUSE RED BLOOD CELLS Timed 03/21/2024 4:55 PM NURSE RECEPTIONIST Acute myeloid leukemia not having achieved remission (HCC) Anemia, unspecified type PREPARE RBC Timed 03/21/2024 2:46 PM NURSE RECEPTIONIST Acute myeloid leukemia not having achieved remission (HCC) Anemia, unspecified type documented in this encounter Results * Transfuse RBC (03/21/2024 8:18 PM NURSE RECEPTIONIST) Blood Evan Mai MD BLOOD TRANSFUSION ORDERABLES F inal Result * Transfuse RBC: 2 Units (03/21/2024 8:18 PM NURSE RECEPTIONIST) Blood Evan Mai MD BLOOD TRANSFUSION ORDERABLES F inal Result * Transfuse RBC (03/21/2024 6:29 PM NURSE RECEPTIONIST) Blood Evan Mai MD BLOOD TRANSFUSION ORDERABLES F inal Result * Prepare RBC: 2 Units (03/21/2024 2:46 PM NURSE RECEPTIONIST) Product code [id number] [facility] Unit Number [id number] [facility] Product Blood Type APOS [facility] [place] [facility] Dispense Status PRESUMED TRANSFUSED [facility] [place] [facility] Product code X4658W85 Unit Number [id number] [facility] Product Blood Type APOS [facility] Dispense Status PRESUMED TRANSFUSED [facility] Blood 03/21/2024 2:46 PM NURSE RECEPTIONIST 03/21/2024 2:45 PM NURSE RECEPTIONIST Narrative CAITLIN ANDERSON - 03/22/2024 12:55 AM NURSE RECEPTIONIST Are special requirements needed? (All products are leukoreduced and CMV- safe)->Yes Evan Mai MD BLOOD BANK PRODUCT ORDERABLES Final Result [facility] [place] [address] documented in this encounter Visit Diagnoses Diagnosis Anemia, unspecified type- Primary Acute myeloid leukemia not having achieved remission (HCC) documented in this encounter Orders Nursing Count Last Ordered Date First Orde red Date ONCBCN NURSING COMMUNICATION [id number] 1 05/21/2023 ONCBCN VITAL SIGNS/EKG/PK 2 1 03/21/2024 VITAL SIGNS 1 03/21/2024 Appointment Requests Count Last Ordered Date Fi rst Ordered Date ONCBCN BLOOD TRANSFUSION APPT 1 03/21/2024 documented in this encounter Care Teams Rebar Bender Relationship Specialty Start Date End Date Yaya Britt MD PCP - General 07/31/16 Kaleb Tomlin MD [address] [address] Referring Physician Hematology 02/29/24 Evan Mai MD [address] [facility] [address] DIV IM BONE [place] [address] Consulting Physician Internal Medicine 03/01/24 documented as of this encounter
--- OUTSIDE RECORDS SUMMARY | 2024-04-20 03:14 | XMS_ITS | Encounter Summary ---
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
--- OUTSIDE RECORDS SUMMARY | 2024-04-20 03:14 | XMS_ITS | Encounter Summary ---
Author Organization [facility] Healthcare Address [address] [place] [address] Care Team Providers Care Transportation Mechanic Name Role Phone Yaya Britt MD Primary Care Provider Encounter Details Date Type Department Care Team (Late st Contact Info) Description 09/03/[address] 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 Requesting all meds be sent for 30 [...] documented as of this encounter Care Teams Transportation Mechanic Relationship Specialty Start Date End Date Yaya Britt MD PCP - General 07/31/16 documented as of this encounter
--- OUTSIDE RECORDS SUMMARY | 2024-04-20 03:14 | XMS_ITS | Encounter Summary ---
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
--- OUTSIDE RECORDS SUMMARY | 2024-04-20 03:14 | XMS_ITS | Encounter Summary ---
Author Organization [facility] Healthcare Address [address] [place] [address] Care Team Providers Care Universal Grinder Tool Name Role Phone Yaya Britt MD Primary Care Provider [phone] Reason for Visit * Diagnostic Imaging (Routine) - Closed Specialty Diagnoses / Procedures Referred By Contac t Referred To Contact Diagnoses Left knee pain, unspecified chronicity Procedures XR Pelvis 1 or 2 Views Lul Yusuf MD [address] [place] [address] [address] [address] Phone: tel: fax: [facility] Medical Group Referral ID Status Reason Start Date Expiration Date Visits Re quested Visits Authorized [id number] Closed 12/24/2023 01/22/2025 1 1 Encounter Details Date Type Department Care Team (Latest Contact Info) Description 12/24/2023 8:50 AM CDT Ancillary Procedure [facility] Medical Group Imaging at [address] [phone] Left knee pain, unspecified chronicity [...] on file 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
--- OUTSIDE RECORDS SUMMARY | 2024-04-20 03:14 | XMS_ITS | Encounter Summary ---
Author Organization [facility] Address [address] [place] [address] Phone Care Team Providers Care Salvage Winder Name Role Phone Yaya Britt MD Primary Care Provider [phone] Kaleb Tomlin MD Unavailable [phone] Evan Mia MD Unavailable [phone] Reason for Referral * Diagnostic Lab (Routine) - Denied Specialty Diagnoses / Procedures Referred By Taco crawford Referred To Contact Lab Diagnoses Acute myeloid leukemia not having achieved remission (HCC) Procedures ChromoSeq - Heme Genetic Profiling (WGS) with interpretation Bone marrow Evan Mai MD [address] [place] [address] Phone: tel: fax: Referral ID Status Reason Start Date Expiration Date Visits Re quested Visits Authorized [id number] Denied 03/21/2024 04/20/2025 1 0 T METAL INSTALLER * Diagnostic Lab (Routine) - Denied Specialty Diagnoses / Procedures Referred By Taco crawford Referred To Contact Lab Diagnoses Acute myeloid leukemia not having achieved remission (HCC) Procedures Diagnosis MyeloSeq Heme NGS Panel with Interpretation Bone marrow Evan Mai MD [address] [place] [address] Phone: tel: fax: Referral ID Status Reason Start Date Expiration Date Visits Re quested Visits Authorized [id number] Denied 03/21/2024 04/20/2025 1 0 T METAL INSTALLER * (Routine) - Pending Review Specialty Diagnoses / Procedures Referred By Taco crawford Referred To Contact Diagnoses Acute myeloid leukemia not having achieved remission (HCC) Procedures Hematologic Molecular Algorithm Bone marrow Evan Mai MD [address] [place] [address] Phone: tel: fax: Referral ID Status Reason Start Date Expiration Date V isits Requested Visits Authorized [id number] Pending Review 03/21/2024 04/20/2025 1 1 T METAL INSTALLER * Diagnostic Lab (Routine) - Pending Review Specialty Diagnoses / Procedures Referred By Taco crawford Referred To Contact Lab Diagnoses Acute myeloid leukemia not having achieved remission (HCC) Procedures Cytogenetics Bone marrow Evan Mai MD [address] [place] [address] Phone: tel: fax: Referral ID Status Reason Start Date Expiration Date V isits Requested Visits Authorized [id number] Pending Review 03/21/2024 04/20/2025 1 1 T METAL INSTALLER * Procedure (Routine) - Closed Specialty Diagnoses / Procedures Referred By Taco crawford Referred To Contact Diagnoses Acute myeloid leukemia not having achieved remission (HCC) Procedures Biopsy bone marrow Evan Mai MD [address] [place] [address] Phone: tel: fax: [facility] (All Locations) Referral ID Status Reason Start Date Expiration Date Visits Re quested Visits Authorized [id number] Closed 03/21/2024 04/20/2025 1 1 T METAL INSTALLER Encounter Details Date Type Department Care Team (Late st Contact Info) Description 03/21/2024 Orders Only [facility] Bone Marrow Transplant [address] 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 Gender Identity Not on file Sexual Orientation Not on file documented as of this encounter Plan of Treatment Scheduled Orders Name Type Priority Associated Diagnoses Orde r Schedule Biopsy bone marrow Procedures Routine Acute myeloid leukemia not having achieved remission (HCC) Expected: 03/22/2024, Expires: 03/21/2025 documented as of this encounter Results * ChromoSeq tracking order Bone marrow (03/27/2024 2:13 PM SHEET METAL INSTALLER) ChromoSeq Tracking Order Received Bone marrow 03/27/2024 2:13 PM SHEET METAL INSTALLER 03/27/2024 5:26 PM SHEET METAL INSTALLER Narrative [facility] - 03/28/2024 9:48 AM SHEET METAL INSTALLER Specimen type (select one):->Marrow us Evan Mai MD LAB BODY FLUIDS AND STOOLS ORD ERABLES Final Result [facility] One [facility] Department [place] [address] * ChromoSeq - Heme Genetic Profiling (WGS) with interpretation Bone marrow (03/27/2024 2:13 PM SHEET METAL INSTALLER) Bone marrow (Bone Marrow Biopsy) 03/27/2024 2:13 PM SHEET METAL INSTALLER 03/28/2024 9:45 AM SHEET METAL INSTALLER Narrative [facility] DIAGNOSTIC [facility] - CYTOGENETICS - 04/11/2024 10:20 PM SHEET METAL INSTALLER [facility] Pathology Services [address] [place] [address] Final Report Patient Name: KELLEE PALACIOS SR. Address: [address] [place] [address] Gender: M : 1960 (Age: 63) Accessioned: 03/28/2024 Taken: 03/27/2024 Received: 03/28/2024 Physician(s): Evan Morataya MD Service: [facility] Location: [facility] #: [id number] Patient Type: [facility] Within3oSeq Molecular DiagnosticsReported:04/11/2024 Tissue type: Bone Marrow Stated [...] identified, consistent with the corresponding cytogenetic studies ([id number]) and a complex karyotype. In addition, a [...] PATHOLOGY ORDERABLES Final Result Performing Organization Address City/[facility]/ZIP Co de Phone Number [facility] - CYTOGENETICS [address] [place] [address] * MyeloSeq tracking order Bone marrow (03/27/2024 2:13 PM SHEET METAL INSTALLER) MyeloSeq Received Bone marrow 03/27/2024 2:13 PM SHEET METAL INSTALLER 03/27/2024 5:26 PM SHEET METAL INSTALLER Narrative [facility] - 03/28/2024 9:48 AM SHEET METAL INSTALLER Specimen type (select one):->Marrow Evan Mai MD LAB BODY FLUIDS AND STOOLS ORD ERABLES Final Result [facility] [address] [facility] Department [place] [address] * Diagnosis MyeloSeq Heme NGS Panel with Interpretation Bone marrow (03/27/2024 2:13 PM SHEET METAL INSTALLER) Bone marrow (Bone Marrow Biopsy) 03/27/2024 2:13 PM SHEET METAL INSTALLER 03/28/2024 9:45 AM SHEET METAL INSTALLER Narrative [facility] - CYTOGENETICS - 04/12/2024 10:35 PM SHEET METAL INSTALLER [facility] Pathology Services [address] [place] [address] Final Report Patient Name: KELLEE PALACIOS SR. Address: [address] [place] [address] Gender: M : 1960 (Age: 63) Accessioned: 03/28/2024 Taken: 03/27/2024 Received: 03/28/2024 Physician(s): Evan Morataya MD Service: [facility] Location: [facility] #: [id number] Patient Type: [facility] MyeloSeq Molecular DiagnosticsReported:04/12/2024 Varients Detected: ? [...] presents for evaluation. Corresponding bone marrow biopsy ([id number]) shows a markedly hypercellular marrow with 5% blasts and megakaryocytic dysplasia. Corresponding cytogenetic studies ([id number]) show a complex karyotype. Specimen site: Bone marrow Variant Detail: ? Gene ? Location (GR38) ? Reference allele ? Variant allele ? Transcript:Coding change ? Population Frequency* ? TP53 ? [id number] ? C ? T ? [id number]:c.517G>A ? none*The population allele frequency represents the [...] the CLIA Licensed Environment laboratory at the [facility] ([facility]-[place], CLIA #[id number], CAP #[id number]), Dr. Sammy Johnson MD, PhD, [facility], Rewrite Editor. [address] [facility], [address] [place], [place] [address] . The [facility] is regulated under CLIA as certified to perform high-complexity testing. Interpretation of sequencing results and case sign out is performed by Pathology and Immunology faculty in the Division of Genomic and Molecular Pathology ([facility], CLIA #[id number], CAP #[id number]) Dr. Sujatha Littlejohn Ph.D., Rewrite Editor. Clinical Genomics Laboratory, [facility] [facility], [facility] [address], [place] [address] [phone] . The Clinical Genomics Laboratory is regulated [...] 30GBases of sequencing data generated on an [employer] X Plus. This test has been validated according to CAP guidelines for the detection of single nucleotide variants (SNVs) and indels (max validated size 117bp). This assay has two limits of detection: for new variants (not previously reported by KeraFASToSeq) sensitivity is limited to 2% VAF; for [...] and correlations are subject to change management director time in response to future scientific and [...] Mai MD LAB PATHOLOGY ORDERABLES Final Result [facility] - CYTOGENETICS [address] [place] [address] * Hematologic Molecular Algorithm Bone marrow (03/27/2024 2:13 PM SHEET METAL INSTALLER) Heme Molecular Algorithm Received Bone marrow 03/27/2024 2:13 PM SHEET METAL INSTALLER 03/28/2024 9:29 AM SHEET METAL INSTALLER Narrative [facility] - 04/05/2024 11:34 AM SHEET METAL INSTALLER Tube information: [place] Clinical History / Treatment Plan:->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 Select diagnosis - - Appropriate molecular tests will be performed based on histopathological diagnosis.->AML 04/02/2024 - HMA complete, no additional testing indicated. Evna Mai MD LAB BODY FLUIDS AND STOOLS ORD ERABLES Final Result Performing Organization Address [facility] Co de Phone Number [facility] [place] [address] * Cytogenetics Specimen Tracking Bone marrow (03/27/2024 2:13 PM SHEET METAL INSTALLER) Cytotenetics Tracking Order Received Bone marrow 03/27/2024 2:13 PM SHEET METAL INSTALLER 03/27/2024 5:26 PM SHEET METAL INSTALLER Narrative [facility] - 03/28/2024 9:48 AM SHEET METAL INSTALLER Please read the Cytogenetics Epic requisition for specimen collection requirements. Evan Mai MD LAB BODY FLUIDS AND STOOLS ORD ERABLES Final Result Performing Organization Address [facility] Co de Phone Number [facility] [place] [address] * Cytogenetics Bone marrow (03/27/2024 2:13 PM SHEET METAL INSTALLER) Bone marrow (Bone Marrow Biopsy) 03/27/2024 2:13 PM SHEET METAL INSTALLER 03/27/2024 2:13 PM SHEET METAL INSTALLER Narrative [facility] - CYTOGENETICS - 04/11/2024 2:17 PM SHEET METAL INSTALLER EPIC results best viewed via link to PDF [facility] Department of Pathol [address] [place] [address] ? Patient Information ? Name: ??KELLEE PALACIOS SR. ? Gender: ??M ? : ??1960 (Age: 63) ? Tissue: ??Bone Marrow w/ FISH ? Visit Information ? Hospital #: ? [id number] ? Facility: ? [facility] ? Service: ? [facility] ? Location: ? UNKNOWN ? Patient Type: ? WUPT-EPIC ? Specimen Information: ? Culture #: ??[id number] ? Date Collected: ??03/27/2024 ? Date Accessioned: [...] Resolution: ??400Subculture: ?? Karyotype: 42~44,XY,-3,dic(15;17)(q11.1;p11.1),abraham(6)t(3;6)(q25;p24),-9,add(21)(p11.1),+add (21)[ cp6].nuc bree(A4V361/C0B4935p6,EGR1x1)[37/200],(WWUH2E3o2,KMBA1v4)[17/200],(ASS1x1,ABL1x1, BCRx2 )[33/200], (MECOM,E2Y655,KMT2A,PML,CBFB,GRANT)x2[200] Non-Clonal Aberration: abraham(3)t(3;6)(p25;q13~15) Diagnosis: CHROMOSOME ANALYSIS: ? LIMITED COMPLEX KARYOTYPE FISH FINDINGS: ?DELETION OF EGR1 (5q) - 18.5% ?TRISOMY OF RUNX1 (21q) - 8.5% ?MONOSOMY OF ASS1/ABL1 (9q) - 16.5% ?NO EVIDENCE OF MECOM REARRANGEMENT ?NO EVIDENCE OF DELETION/MONOSOMY OF H7D316 (7q) ?NO EVIDENCE OF FOJW1S6::RUNX1, BCR::ABL1, KMT2A, PML::GRANT ? OR CBFB REARRANGEMENT INTERPRETATION: Only six metaphase cells were obtained and analyzed from an unstimulated culture. ??All six metaphase cells analyzed revealed the clonal aberrations described above in a composite karyotype (cp). ??Due to nlyo-gl-gsbu heterogeneity, the karyotypic description is composite, listing [...] Hybridization (FISH) analysis are performed using the [employer] [address] [address] Cytovision Imaging System. Report Electronically Reviewed and Signed Out By Hima Bernal, PhD, FACMGDate Reported: ??4Associate Professor, Division of Genomic & Molecular Pathology FLUORESCENCE IN-SITU HYBRIDIZATION [FISH] Karyotype: nuc bree(Q5F458/H0U4826s8,EGR1x1)[37/200],(JYAQ1M4x3,HTZV0a0)[17/200],(ASS1x1,ABL1x1, BCRx2 )[33/200], (U2K027,KMT2A,PML,CBFB,GRANT)x2[200] Diagnosis: FISH FINDINGS: ?DELETION OF EGR1 (5q) - 18.5% ?TRISOMY OF RUNX1 (21q) - 8.5% ?MONOSOMY OF ASS1/ABL1 (9q) - 16.5% ?NO EVIDENCE OF DELETION/MONOSOMY OF U7C343 (7q) ? NO EVIDENCE OF AWBG7M0::RUNX1, BCR::ABL1, KMT2A, PML::GRANT OR CBFB ? REARRANGEMENT Pending FISH: ?FISH for MECOM INTERPRETATION: FISH analysis was performed with a panel of [employer] and [employer] probes for AML and is interpreted as ABNORMAL for the EGR1, RSHI9N8::RUNX1, and BCR::ABL1 probe sets. 1) FISH evaluation for a 5q deletion was performed on nuclei with the EGR1,H8B745/I4M7964 Dual Color Probe ([employer] for EGR1 at 5q31.1 and the control S7Y560/K6A6652 at 5p15.31 and is interpreted as ABNORMAL. ??One EGR1 hybridization signal and two A5G321/V4D7666 control hybridization signals were observed in 37/200 nuclei, which exceeds the normal range (up to 3.1%) established for this probe in the Clinical Genomics Laboratory at [facility]. 2) FISH evaluation for a TKOF6Y0::RUNX1 rearrangement was performed on nuclei with the LSI YNHE0N0::RUNX1 Dual Color, Dual Fusion Translocation Probe ([employer] for FTVI1A7(ETO) at 8q22 and RUNX1(AML1) at 21q22 and is interpreted as ABNORMAL, although an YATD5Y4::RUNX1 rearrangement was not detected. ??An abnormal hybridization pattern consisting of two IAVX1O4 hybridization signals and three RUNX1 hybridization signals was observed in 17/200 nuclei, indicative of trisomy for the corresponding region on chromosome 21. ??This value exceeds the normal range (up to 1%) established for this probe in the Clinical Genomics Laboratory at [facility]. ?? 3) FISH evaluation for a BCR::ABL1 rearrangement was performed on nuclei with the LSI BCR::ABL1 Tricolor, Dual Fusion Translocation Probe ([employer] for ASS1/ABL1 at 9q34 and BCR [...] probe in the Clinical Genomics Laboratory at [facility]. 4) FISH evaluation for a 7q deletion was performed on nuclei with the LSI R8X176/D7Z1 Dual Color Probe ([employer] for M5D143 at 7q31 and the control D7Z1 at 7p11.1-q11.1 and is interpreted as NORMAL. ??Two F8V830 hybridization signals and two D7Z1 control hybridization signals were observed in 200/200 nuclei, which is within the normal range established for this probe set in the Clinical Genomics Laboratory at [facility]. ??Up to 1% of cells in normal samples can show an apparent 7q deletion using this probe. ??A normal U8C459 FISH finding can result from the absence [...] probe in the Clinical Genomics Laboratory at [facility]. ??Up to 1% of cells in normal [...] probe in the Clinical Genomics Laboratory at [facility]. Variant signal pattern was observed in 10/200 [...] probe in the Clinical Genomics Laboratory at [facility]. ??Up to 2% of cells in normal [...] and its performance characteristics determined by [facility]. It has not been cleared or approved by the FDA. The laboratory is regulated under CLIA as qualified to perform high-complexity testing. This test is used for clinical purposes. It should not be regarded as investigational or for research. Chromosome analysis and Fluorescence In Situ Hybridization (FISH) analysis are performed using the [employer] Imaging System. Report Electronically Reviewed and Signed Out By Asim Bear, PhD, FACMGDate Reported: ??4Assistant Professor, Division of Genomic & Molecular Pathology REFLEX FLUORESCENCE IN-SITU HYBRIDIZATION [FISH] Karyotype: nuc bree(MECOMx2)[200] Diagnosis: ?? FISH FINDINGS: ?NO EVIDENCE OF MECOM (3q) REARRANGEMENT INTERPRETATION: FISH evaluation for an EVI1(MECOM) rearrangement was performed on nuclei with the BETHANY Dual Color, Break Apart Rearrangement Probe ([employer]) at 3q26 and is interpreted as NORMAL. ??No rearrangement was observed in 199/200 nuclei, which is within the normal range established for this probe in the Clinical Genomics Laboratory at [facility]. ??Up to 2% of cells in normal [...] and its performance characteristics determined by [facility]. It has not been cleared or approved by the FDA. The laboratory is regulated under CLIA as qualified to perform high-complexity testing. This test is used for clinical purposes. It should not be regarded as investigational or for research. Chromosome analysis and Fluorescence In Situ Hybridization (FISH) analysis are performed using the [address] Cytovision Imaging System. Report Electronically Reviewed and Signed Out By Margaret Ratliff, PhD Date Reported: ??04/05/2024ssistant Professor, Division of Genomic & Molecular Pathology Evan Mai MD LAB GENETIC TESTING Final Resu lt [facility] - CYTOGENETICS [address] [place] [address] * Flow Leukemia/Lymphoma Bone marrow (03/27/2024 2:13 PM SHEET METAL INSTALLER) Kaufman Stain Test Completed Leukemia/Lymp johana Result See separate Surgical Pathology report. [facility] Bone marrow 03/27/2024 2:13 PM SHEET METAL INSTALLER 03/27/2024 6:37 PM SHEET METAL INSTALLER Narrative [facility] - 03/28/2024 8:22 AM SHEET METAL INSTALLER Tube information: Green top (Sodium Heparin) Evan Mai MD LAB PATHOLOGY ORDERABLES Final Result Performing Organization Address City/[facility]/ZIP Co de Phone Number [facility] [place] [address] documented in this encounter Visit Diagnoses Diagnosis Acute myeloid leukemia not having achieved remission (HCC)- Primary Acute myeloid leukemia not having achieved remission (HCC) Acute myeloid leukemia not having achieved remission (HCC) documented in this encounter Orders Appointment Requests Count Last Ordered Date Fi rst Ordered Date ONCBCN BONE MARROW BIOPSY APPT 1 03/27/2024 documented in this encounter Care Teams Salvage Winder Relationship Specialty Start Date End Date Yaya Britt MD PCP - General 07/31/16 Kaleb Tomlin MD [address] [address] Referring Physician Hematology 02/29/24 Evan Mai MD [address] [facility] [address] DIV [place] [address] Consulting Physician Internal Medicine 03/01/24 documented as of this encounter
--- OUTSIDE RECORDS SUMMARY | 2024-04-20 03:14 | XMS_ITS | Encounter Summary ---
Author Organization [facility] Address [address] [place] [address] Phone Care Team Providers Care Throw Out Clerk Name Role Phone Yaya Britt MD Primary Care Provider [phone] Kaleb Tomlin MD Unavailable [phone] Evan Mai MD Unavailable [phone] Encounter Details Date Type Department Care Team (Late st Contact Info) Description 03/16/2024 Telephone [facility] Bone Marrow Transplant 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 LE EDGER documented in this encounter Plan of Treatment Not on file documented as of this encounter Visit Diagnoses Not on filedocumented in this encounter Care Teams Throw Out Clerk Relationship Specialty Start Date End Date Yaya Britt MD PCP - General 07/31/16 Kaleb Tomlin MD [address] [address] Referring Physician Hematology 02/29/24 Evan Mai MD [address] DIV IM [place] [address] Consulting Physician Internal Medicine 03/01/24 documented as of this encounter
--- OUTSIDE RECORDS SUMMARY | 2024-04-20 03:14 | XMS_ITS | Encounter Summary ---
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
--- OUTSIDE RECORDS SUMMARY | 2024-04-20 03:14 | XMS_ITS | Encounter Summary ---
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) Procedures Transthoracic Echo (TTE) Limited/[place] [address] [place] [address] Phone: tel: fax: [facility] Referral ID Status Reason Start Date Expiration Date Visits Re quested Visits Authorized [id number] Closed 12/10/2023 01/08/2025 1 1 Encounter Details Date Type Department Care Team (Latest Contact Info) Description 01/10/2024 1:00 PM CDT Ancillary Procedure [facility] Cardiology [address] [address] [address] [place] [address] Heart failure with mildly reduced ejection fraction (HFmrEF) ([facility]) Social History Tobacco Use Types Packs/Day Years [...] on file 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 Left Ventricle: Normal left ventricular wall thickness. [...] thickened. Electronically Signed By: Dr. Henna Fry [facility] 2024-01-10 17:49:33 CDT Procedure Note Henna Fry MD - 01/10/2024 [facility] Cardiology [address] [facility] [address] [id number] [facility] [address], [place], [place] [address] P:[phone] P:[phone] Echocardiographic Report Patient Name: TAIWO TAPIA J [...] Site: Exam was interpreted at [facility]. Left Ventricle: Normal left ventricular wall thickness. [...] thickened. Electronically Signed By: Dr. Henna Fry [facility] 2024-01-10 17:49:33 CDT [facility] Raúl Obregon MD CV ECHO PROCEDURES Karina l Result documented in this encounter Visit Diagnoses Diagnosis Heart failure with mildly reduced ejection fraction (HFmrEF) ([facility]) documented in this encounter Care Teams Flask Maker Relationship Specialty Start Date End Date Yaya Britt MD PCP - General 07/31/16 documented as of this encounter
--- OUTSIDE RECORDS SUMMARY | 2024-04-20 03:14 | XMS_ITS | Encounter Summary ---
Author Organization [facility] Address [address] [place] [address] Phone Care Team Providers Care Java Web Services Developer Name Role Phone Yaya Britt MD Primary Care Provider Kaleb Tomlin MD Unavailable Evan Mai MD Unavailable [phone] Encounter Details Date Type Department Care Team (Late st Contact Info) Description 03/01/2024 Orders Only [facility] Bone Marrow Transplant [address] [facility] Floor 6 [place] [address] Evan Mai MD [address] [place] [address] Acute myeloid leukemia not having achieved remission [...] on file Legal 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 Testing performed by: [facility] [place][Note 2] Heme Lab, [address] [place], [place] [id number] Hct 19.8(L) 38.9 - 50.3 % CERNER BJ Comment:Testing performed by : [facility] [place][Note 2] Heme Lab, [address] [place], [place] [id number] Plt 45(L) 150 - 400 K/cumm CERNER BJ Comment:Testing performed by : [facility] [place][Note 2] Heme Lab, [address] [place], [place] [id number] MPV 8.3 6.8 - 10.4 fL CERNER BJ Comment:Testing performed by : [facility] [place][Note 2] Heme Lab, [address] [place], [place] [id number] RBC 2.31(L) 4.30 - 5.80 M/cumm CERNER BJ Comment:Testing performed by : [facility] [place][Note 2] Heme Lab, [address] [place], [place] [id number] MCV 85.7 81.3 - 96.4 fL CERNER BJ Comment:Testing performed by : [facility] [place][Note 2] Heme Lab, [address] [place], [place] [id number] MCH 28.1 27.1 - 33.3 pg [facility] Comment:Testing performed by : [facility] [place][Note 2] Heme Lab, [address] [place], [place] [id number] MCHC 32.7 32.3 - 35.7 g/dL [facility] Comment:Testing performed by : [facility] [place][Note 2] Heme Lab, [address] [place] [phone] RDW CV 20.4(H) 11.1 - 14.9 % [facility] Comment:Testing performed by : [facility] [place][Note 2] Heme Lab, [address] [place] [phone] NRBC abs 0.00 0.00 - 0.01 K/cumm [facility] Comment:Testing performed by : [facility] [place][Note 2] Heme Lab, [address] [place] [phone] Blood 03/21/2024 1:05 PM REHABILITATOR 03/21/2024 1:06 PM REHABILITATOR Evan Mai MD LAB BLOOD ORDERABLES Final Res ult Performing Organization Address City/[facility]/ZIP Co de Phone Number [facility] [place] [address] * (ABNORMAL) Lactate dehydrogenase (LD) (03/21/2024 12:59 PM REHABILITATOR) [facility] Lactate dehydrogenase (LDH) 267(H) 100 - 250 Units/L Blood 03/21/2024 12:5 9 PM REHABILITATOR 03/21/2024 1:11 PM REHABILITATOR Evan Mai MD LAB BLOOD ORDERABLES Final Res ult Performing Organization Address City/[facility]/ZIP Co de Phone Number [facility] Department [place] [address] * (ABNORMAL) Comprehensive metabolic panel (03/21/2024 12:59 PM REHABILITATOR) Sodium 133(L) 135 - 145 mmol/L Potassium, pl 4.7 3.3 - 4.9 mmol/L [facility] Chloride 103 97 - 110 mmol/L [facility] CO2 27 22 - 32 mmol/L [facility] Anion gap 3 2 - 15 mmol/L [facility] BUN 26(H) 6 - 25 mg/dL [facility] Creatinine 0.77(L) 0.80 - 1.30 mg/dL [facility] Glucose 119 70 - 199 mg/dL [facility] Comment: Interpretive Data Fasting glucose >/= 126 [...] 2022. Calcium 9.2 8.5 - 10.3 mg/dL [facility] Bilirubin, total 0.4 0.1 - 1.2 mg/dL [facility] Protein, pl 8.5 6.5 - 8.5 g/dL [facility] Albumin 3.2(L) 3.5 - 5.0 g/dL [facility] Alk phos 88 40 - 130 Units/L [facility] ALT 5(L) 7 - 55 Units/L [facility] AST 14 10 - 50 Units/L [facility] Blood 03/21/2024 12:5 9 PM REHABILITATOR 03/21/2024 1:11 PM REHABILITATOR Evan Mai MD LAB BLOOD ORDERABLES Final Res ult [facility] Department [place] [address] * Type and screen (03/21/2024 12:59 PM REHABILITATOR) ABO Rh A Positive Adalgisa, indirect Negative [facility] Blood 03/21/2024 12:5 9 PM REHABILITATOR 03/21/2024 1:29 PM REHABILITATOR Narrative [facility] - 03/21/2024 2:27 PM REHABILITATOR Has the patient had Daratumumab or Isatuximab in the past 6 months?->Unknown us Evan Mai MD LAB BLOOD BANK TEST ORDERABLES Final Result Performing Organization Address City/[facility] Co de Phone Number [facility] [place] [address] * (ABNORMAL) CMV, IgG Blood (03/21/2024 12:59 PM REHABILITATOR) CMV IgG Positive( A) Negative Comment: Interpretive [...] CMV infection. Blood 03/21/2024 12:5 9 PM REHABILITATOR 03/21/2024 2:17 PM REHABILITATOR Evan Mai MD LAB MICROBIOLOGY - GENERAL ORD ERABLES Final Result Performing Organization Address [facility] Co de Phone Number [facility] Department [place] [address] documented in this encounter Visit Diagnoses Diagnosis Acute myeloid leukemia not having achieved remission (HCC)- Primary Acute myeloid leukemia not having achieved remission (HCC) documented in this encounter Care Teams Java Web Services Developer Relationship Specialty Start Date End Date Yaya Britt MD PCP - General 07/31/16 Kaleb Tomlin MD [address] [address] Referring Physician Hematology 02/29/24 Evan Mai MD [address] [facility] [address] DIV IM [place] [address] Consulting Physician Internal Medicine 03/01/24 documented as of this encounter
--- OUTSIDE RECORDS SUMMARY | 2024-04-20 03:14 | XMS_ITS | Encounter Summary ---
Author Organization [facility] Address [address] [place] [address] Care Team Providers Care Adjunct Professor Of Law Name Role Phone Yaya Britt MD Primary Care Provider [phone] Encounter Details Date Type Department Care Team (Late st Contact Info) Description 12/29/2023 Orders Only [facility] Orthopedics and Sports Medicine [address] [facility] [address] [place] [phone] Lul Yusuf MD [address] [place] [address] [address] [place] [address] Social History Tobacco Use Types Packs/Day Years [...] on file 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 Yaya Britt's office to let him know that we received his lab results and they are extremely low. I let him know that we faxed the lab results to Dr. Sheriff per their request and they would be [...] have assigned CBC with Differential/Platelet, Test Code #[id number] to this request. If this is not the testing you wished to receive on this specimen, please contact the [facility] Client Inquiry/ Technical Services Department to clarify the test order. We appreciate your business. 12/29/2023 1:25 PM CDT 12/29/2023 Narrative [facility] - 12/30/2023 10:12 AM CDT Performed at: ??01 - [facility] [address] ??[id number] Fruit Buyer: Tima Kim PhD, Phone: ??[phone] Specimen Comment: A courtesy copy of this report has been sent to [phone], Family Specimen Comment: Care Specialists, Lul Yusuf MD LAB BLOOD ORDERABLES Final R esult [facility] - 01 documented in this encounter Visit Diagnoses Not on filedocumented in this encounter Care Teams Adjunct Professor Of Law Relationship Specialty Start Date End Date aYya Britt MD PCP - General 07/31/16 documented as of this encounter
--- OUTSIDE RECORDS SUMMARY | 2024-04-20 03:14 | XMS_ITS | Encounter Summary ---
Author Organization [facility] Address [address] [place] [address] Care Team Providers Care Battery Wrecker Operator Name Role Phone Yaya Britt MD Primary Care Provider [phone] Reason for Referral * Consultation (Routine) - Closed Specialty Diagnoses / Procedures Referred By Contac t Referred To Contact Physical Therapy Diagnoses S/P total knee replacement, left Lul Yusuf MD [address] [place] [address] [address] [address] Phone: tel: fax: [facility] [address] [address] Phone: tel: fax: Referral ID Status Reason Start Date Expiration Date V isits Requested Visits Authorized [id number] Closed Evaluate and Treat 12/24/2023 01/22/2025 24 24 Question Answer PTRFR PT Evaluate and Treat Therapy options discussed with patient? Yes Location provided for therapy services is: Patient requested/Patient preferred Please select the performing region: External Order [171] To loc/pos [facility] [place] [[id number]] # of visits: 24 Comments Total Knee [...] patient is not progressing as expected at [phone]. 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
--- OUTSIDE RECORDS SUMMARY | 2024-04-20 03:14 | XMS_ITS | Encounter Summary ---
Author Organization [facility] Address [address] [place] [address] Care Team Providers Care Scrap Charger Name Role Phone Yaya Britt MD Primary Care Provider [phone] Reason for Referral * Consultation (Routine) - Closed Specialty Diagnoses / Procedures Referred By Contac t Referred To Contact Physical Therapy Diagnoses Acute pain of left knee Lul Yusuf MD [address] [place] [address] [address] [address] Phone: tel: fax: [facility] [address] [address] Phone: tel: fax: Referral ID Status Reason Start Date Expiration Date V isits Requested Visits Authorized [id number] Closed Specialty Services Required 12/24/2023 01/22/2025 24 24 Question Answer PTRFR PT Evaluate and Treat Therapy options discussed with patient? Yes Location provided for therapy services is: Patient requested/Patient preferred Please select the performing region: External Order [171] To loc/pos [facility] [place] [[id number]] # of visits: 24 Comments Patient is needing physical therapy before he has surgery on 02/23/24. 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
--- OUTSIDE RECORDS SUMMARY | 2024-04-20 03:14 | XMS_ITS | Encounter Summary ---
Author Organization [facility] Healthcare Address [address] [place] [address] Care Team Providers Care Material Assembler Name Role Phone Yaya Britt MD Primary Care Provider [phone] Reason for Referral * MRI/CAT/PET Scan (Routine) - Closed Specialty Diagnoses / Procedures Referred By Contac t Referred To Contact Radiology Diagnoses Heart failure with reduced ejection fraction (CMS/HCC) (HCC) Atrial fibrillation, unspecified type (HCC) MORA (dyspnea on exertion) Procedures CTA Heart and Coronary Arteries W Morphology when Performed Haydee Obregon MD [address] [address] Phone: tel: fax: [address] [address] Referral ID Status Reason Start Date Expiration Date Visits Re quested Visits Authorized [id number] Closed 09/22/2023 10/22/2023 1 1 Encounter Details Date Type Department Care Team (Late st Contact Info) Description 08/26/2023 Telephone [facility] Cardiology [address] [facility] [address] [place] [address] Nadine Sheridan Social History Tobacco Use Types Packs/Day Years Used Date Smoking Tobacco: Former Cigarettes Smokeless Tobacco: Never Alcohol Use Standard Drinks/Week Comments No 0 (1 standard drink = 0.6 oz pur e alcohol) Sex and Gender Information Value Date Recorded Sex Assigned at Not on file Legal Sex Male 2:01 AM CONTACT AGENT Gender Identity Not on file Sexual Orientation Not on file documented as of this encounter Miscellaneous Notes * Telephone Encounter - Christina Shore RN - 08/27/2023 12:31 PM CDT Letter sent as requested. * Telephone Encounter - Brooklyn Cox - 08/27/2023 12:15 PM CDT Pt requesting a letter stating pt is okay to return to work be emailed to his employer. Email: [email or web address] Contact:[phone] * Telephone Encounter - Christina Shore RN [...] results of echo faxed when completed to [phone]. * Telephone Encounter - Nadine Sheridan - [...] abnormality documented in this encounter Care Teams Material Assembler Relationship Specialty Start Date End Date Yaya Britt MD PCP - General 07/31/16 documented as of this encounter
--- OUTSIDE RECORDS SUMMARY | 2024-04-20 03:14 | XMS_ITS | Encounter Summary ---
Author Organization [facility] Healthcare Address [address] [place] [address] Care Team Providers Care Automatic Mounter Name Role Phone Yaya Britt MD Primary Care Provider [phone] Reason for Visit * Cardiology (Routine) - Closed Specialty Diagnoses / Procedures Referred By Contac t Referred To Contact Diagnoses Heart failure with reduced ejection fraction (CMS/HCC) (HCC) Procedures Transthoracic Echo (TTE) Complete W Doppler/CF Brittaney Obregon MD [address] [address] Phone: tel: fax: [facility] Referral ID Status Reason Start Date Expiration Date Visits Re quested Visits Authorized [id number] Closed 08/06/2023 09/04/2024 1 1 Encounter Details Date Type Department Care Team (Latest Contact Info) Description 08/26/2023 3:00 PM CDT Ancillary Procedure [facility] Cardiology [address] [facility] [address] [place] [address] Heart failure with reduced ejection fraction (CMS/HCC) (HCC) Social History Tobacco Use Types Packs/Day Years Used Date Smoking Tobacco: Former Cigarettes Smokeless Tobacco: Never Alcohol Use Standard Drinks/Week Comments No 0 (1 standard drink = 0.6 oz pur e alcohol) Sex and Gender Information Value Date Recorded Sex Assigned at Not on file 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 Gender Identity Not on file Sexual Orientation [...] PM CDT Narrative 08/26/2023 4:22 PM CDT [facility] Cardiology [address] [facility] [address], [place] [address] [address] [facility] [address], [place] [address] [phone] P:[phone] Echocardiographic Report Patient Name: TAIWO TAPIA J : 1960 Study Date: 08/26/2023 3:09:15 PM Gender: M Tech: Location: [facility] Provider: BRITTANEY OBREGON ?Height(Cm): 175 BSA: 2.18 [...] FINDINGS: Interpretation Site: Exam was interpreted at [facility]. Left Ventricle: Definity contrast agent used [...] regurgitation. Electronically Signed By: Eduardo Nielson MD, [facility] 2023-08-26 16:21:58 CDT Procedure Note Eduardo Nielson MD - 08/26/2023 [facility] Cardiology [address] [facility] [address], [place] [address] [address] [facility] [address], [place] [address] P:[phone] P:[phone] Echocardiographic Report Patient Name: TAIWO TAPIA J : 1960 Study Date: 08/26/2023 3:09:15 PM Gender: M Tech: Location: [facility] Provider: BRITTANEY OBREGON Height(Cm): 175 BSA: 2.18 [...] FINDINGS: Interpretation Site: Exam was interpreted at [facility]. Left Ventricle: Definity contrast agent used [...] regurgitation. Electronically Signed By: Eduardo Nielson MD, [facility] 2023-08-26 16:21:58 CDT [facility] Raúl Obregon MD CV ECHO PROCEDURES Karina [...] 08/26/2023 documented in this encounter Care Teams Automatic Mounter Relationship Specialty Start Date End Date Yaya Britt MD PCP - General 07/31/16 documented as of this encounter
--- OUTSIDE RECORDS SUMMARY | 2024-04-20 03:14 | XMS_ITS | Encounter Summary ---
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) Procedures Transthoracic Echo (TTE) Limited/Followup Brittaney Obregon MD [address] [address] Phone: tel: fax: [facility] Referral ID Status Reason Start Date Expiration Date Visits Re quested Visits Authorized [id number] Closed 12/10/2023 01/08/2025 1 1 Reason for Visit * Reason Comments Follow-up 4 mo f/u Atrial Fibrillation Encounter Details Date Type Department Care Team (Late st Contact Info) Description 12/10/2023 11:45 AM CDT Office Visit [facility] Cardiology [address] [facility] [address] [place] [address] Brittaney Obregon MD [address] [address] Paroxysmal atrial fibrillation (CMS/HCC) (HCC) [...] on file 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 [id number] of 1 for CHF. Heart failure with [...] setting of CHF and Influenza A infection. [id number] of 1 for CHF. TSH level was normal. Converted to sinus rhythm on Amiodarone. Continue Toprol, will stop Amiodarone as his PAF was during time of Influenza A infection and CHF, and he has not had recurrence of AFIBsince then; would prefer not to do long-term Amiodarone therapy given his age as well. [id number] 1 for his cardiomyopathy, therefore, anticoagulation not indicated. However, will need to start anticoagulation when he turns 64 as his [id number] will then be 2. Brittaney Obregon M.D., [facility] documented in this encounter Plan of Treatment Not on file documented as of this encounter Results * TRANSTHORACIC ECHO (TTE) LIMITED/FOLLOW UP W LTD DOPPLER/CF WO CONTRAST (01/10/2024 2:05 PM CDT) Anatomical Region Laterality Modality Ultrasound 01/10/2024 1:23 PM CDT Narrative 01/10/2024 5:50 PM CDT [facility] Cardiology [address], [place] [address] [facility] [address], [place] [address] P:[phone] P:[phone] Echocardiographic Report Patient Name: TAIWO TAPIA J [...] FINDINGS: Interpretation Site: Exam was interpreted at [facility]. Left Ventricle: Normal left ventricular wall thickness. [...] thickened. Electronically Signed By: Dr. Henna Fry [facility] 2024-01-10 17:49:33 CDT Procedure Note Henna Fry MD - 01/10/2024 [facility] Cardiology [address] [facility] [address], [place] [address] [address] [facility] [address], [place] [address] P:[phone] P:[phone] Echocardiographic Report Patient Name: TAIWO TAPIA J [...] FINDINGS: Interpretation Site: Exam was interpreted at [facility]. Left Ventricle: Normal left ventricular wall thickness. [...] thickened. Electronically Signed By: Dr. Henna Fry [facility] 2024-01-10 17:49:33 CDT [facility] Raúl Obregon MD CV ECHO PROCEDURES Karina [...] documented as of this encounter Care Teams Relationship Management Lead Relationship Specialty Start Date End Date Yaya Britt MD PCP - General 07/31/16 documented as of this encounter
--- OUTSIDE RECORDS SUMMARY | 2024-04-20 03:14 | XMS_ITS | Encounter Summary ---
Author Organization [facility] Healthcare Address [address] [place] [address] Care Team Providers Care Church Warden Name Role Phone Yaya Britt MD Primary Care Provider [phone] Reason for Referral * Cardiology (Routine) - Authorized Specialty Diagnoses / Procedures Referred By Contac t Referred To Contact Diagnoses Pre-op testing Procedures ECG 12 lead Lul Yusuf MD [address] [place] [address] [facility] [address] [place] [address] Phone: tel: fax: [address] [phone] Referral ID Status Reason Start Date Expiration Date V isits Requested Visits Authorized [id number] Authorized 12/24/2023 01/22/2025 1 1 Encounter Details Date Type Department Care Team (Late st Contact Info) Description 12/24/2023 Orders Only [facility] Orthopedic and Sports Medicine [address] [place] [phone] Paola Grady MA Pre-op testing (Primary Dx) Social [...] on file 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
--- OUTSIDE RECORDS SUMMARY | 2024-04-20 03:14 | XMS_ITS | Encounter Summary ---
Author Organization [facility] Healthcare Address [address] [place] [address] Care Team Providers Care Surveillance Camera Technician Name Role Phone Yaya Britt MD Primary Care Provider Reason for Referral * Cardiology (Routine) - Closed Specialty Diagnoses / Procedures Referred By Contac t Referred To Contact Diagnoses Heart failure with reduced ejection fraction (CMS/HCC) (HCC) Procedures Transthoracic Echo (TTE) Complete W Doppler/CF Brittaney Obregon MD [address] [address] Phone: tel: fax: [facility] Referral ID Status Reason Start Date Expiration Date Visits Re quested Visits Authorized [id number] Closed 08/06/2023 09/04/2024 1 1 Reason for Visit * Reason Comments Hospital Follow Up [facility] -07/03/23 Dx: Rapid heart rate. Wearing Zoll LifeVest. 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 Patient was admitted to [facility] in July 2023 for atrial fibrillation with RVR, congestive heartfailure, Influenza A. Patient is a 63 year old male with rheumatoid arthritis who was sent from hisP's office to [place] [facility] for rapid heart rate, found to [...] He converted to sinus rhythm on Amiodarone. [id number] of 1 for his cardiomyopathy, therefore, anticoagulation [...] sinus rhythm on Amiodarone. Continue Toprol, Amiodarone. [id number] of 1 for his cardiomyopathy, therefore, anticoagulation not indicated. The above information was discussed at length with Taiwo Tapia who was also given ample opportunity to ask questions and verbalized understanding the plan. The appropriate follow up has beenarranged. I have advised the patient to contact me if any questions/problems arise prior to the follow up. Brittaney Obregon M.D., [facility] Interventional Cardiology documented in this encounter Plan of Treatment Not on file documented as of this encounter Results * TRANSTHORACIC ECHO (TTE) COMPLETE W DOPPLER/CF W CONTRAST (08/26/2023 4:20 PM CDT) Anatomical Region Laterality Modality Ultrasound 08/26/2023 3:09 PM CDT Narrative 08/26/2023 4:22 PM CDT [facility] Cardiology [address] [facility] [address] [address] [address] [facility] [address], [place] [address] P:[phone] P:[phone] Echocardiographic Report Patient Name: TAIWO TAPIA J : 1960 Study Date: 08/26/2023 3:09:15 PM Gender: M Tech: Location: [facility] Provider: BRITTANEY OBREGON ?Height(Cm): 175 [...] Interpretation Site: Exam was interpreted at [facility]. Left Ventricle: Definity contrast agent used to [...] regurgitation. Electronically Signed By: Eduardo Nielson MD, [facility] 2023-08-26 16:21:58 CDT Procedure Note Eduardo Nielson MD - 08/26/2023 [facility] Cardiology [address] [facility] [address], [place] [address] [address] [facility] [address], [place] [address] P:[phone] P:[phone] Echocardiographic Report Patient Name: TAIWO TAPIA J : 1960 Study Date: 08/26/2023 3:09:15 PM Gender: M Tech: Location: [facility] Provider: BRITTANEY OBREGON Height(Cm): 175 [...] Interpretation Site: Exam was interpreted at [facility]. Left Ventricle: Definity contrast agent used to [...] regurgitation. Electronically Signed By: Eduardo Nielson MD, [facility] 2023-08-26 16:21:58 CDT [facility] Raúl Obregon MD CV ECHO [...] 1 tablet (88 mcg total) by mouth multiple tube winding machine operator before breakfast amoxicillin-clav ulanate (AUGMENTIN) 875-125 mg [...] 4 added in this encounter Care Teams Surveillance Camera Technician Relationship Specialty Start Date End Date Yaya Britt MD PCP - General 07/31/16 documented as of this encounter
--- OUTSIDE RECORDS SUMMARY | 2024-04-20 03:14 | XMS_ITS | Encounter Summary ---
Author Organization [facility] Healthcare Address [address] [place] [address] Care Team Providers Care Amusement Ride Inspector Name Role Phone Yaya Britt MD Primary Care Provider Kaleb Tomlin MD Unavailable [phone] Evan Mai MD Unavailable [phone] Encounter Details Date Type Department Care Team (Late st Contact Info) Description 03/21/2024 3:30 PM CASH ANALYST Infusion [facility] - Infusion [address] [facility] [address] 6 [place] [address] Acute myeloid leukemia not having achieved remission [...] file Legal Sex Male 2:01 AM CASH ANALYST Gender Identity Not on file Sexual Orientation Not on file documented as of this encounter Nursing Notes * Cherry Colin RN - 03/21/2024 3:30 PM CST Pt does not meet parameters for plat infusion. See other encounter for blood documentation. ANALYST * Cherry Colin RN - 03/21/2024 3:30 PM CST Oncology Nursing Note Blood Product Administration [facility] - INFUSION Taiwo Palacios Sr. is a [...] Ambulatory Accompanied by: Spouse Discharged To: Home ANALYST documented in this encounter Plan of Treatment Not on file documented as of this encounter Visit Diagnoses Diagnosis Acute myeloid leukemia not having achieved remission (HCC) documented in this encounter Orders Appointment Requests Count Last Ordered Date Fi rst Ordered Date ONCBCN PLATELET TRANSFUSION APPT 1 03/21/20 24 documented in this encounter Care Teams Amusement Ride Inspector Relationship Specialty Start Date End Date Yaay Britt MD PCP - General 07/31/16 Kaleb Tomlin MD [address] [phone] Referring Physician Hematology 02/29/24 Evan Mai MD 1 [facility] [address] DIV IM [place] [address] Consulting Physician Internal Medicine 03/01/24 documented as of this encounter
--- OUTSIDE RECORDS SUMMARY | 2024-04-20 03:14 | XMS_ITS | Encounter Summary ---
Author Organization [facility] Address [address] [place] [address] Phone Care Team Providers Care Machinist Helper Marine Name Role Phone Yaya Britt MD Primary Care Provider [phone] Kaleb Tomlin MD Unavailable [phone] Evan Mai MD Unavailable [phone] Reason for Visit * Consultation (Routine) - Closed Specialty Diagnoses / Procedures Referred By Contact Referred To Contact Medical Oncology / Blood and Marrow Transplant Diagnoses MDS (myelodysplastic syndrome) (HCC) TP53 gene mutation positive Kaleb Tomlin MD [address] [facility] [address] [address] Phone: tel: fax: [facility] (All Locations) Referral ID Status Reason Start Date Expiration Date V isits Requested Visits Authorized [id number] Closed Specialty Services Required 02/29/2024 03/30/2025 1 1 Encounter Details Date Type Department Care Team (Late st Contact Info) Description 03/21/2024 1:40 PM TUBE CARRIER Office Visit [facility] Bone Marrow Transplant [address] [facility] [address] [place] [address] Evan Mai MD [address] [place] [address] MDS (myelodysplastic syndrome) (HCC) (Primary [...] on file Legal Sex Male 2:01 AM TUBE CARRIER Gender Identity Not on file Sexual Orientation Not on file documented as of this encounter Last Filed Vital Signs Vital Sign Reading Time Taken Comments Blood Pressure 100/62 03/21/2024 1:10 PM TUBE CARRIER Pulse 78 03/21/2024 1:10 PM TUBE CARRIER Temperature 36.6 ??C (97.8 ??F) 03/21/2024 1:10 PM CS T Respiratory Rate 18 03/21/2024 1:10 PM TUBE CARRIER Oxygen Saturation 98% 03/21/2024 1:10 PM TUBE CARRIER Inhaled Oxygen Concentration - - Weight 91 kg (200 lb 9.6 oz) 03/21/2024 1:10 PM TUBE CARRIER Height - - Body Mass Index 30.5 [...] thrombocytopenia. He was referred to a local clinic supervisor who diagnosed him with a possibly p53 [...] 1 tablet (88 mcg total) by mouth armature tester beforebreakfast, Disp: , Rfl: metoprolol XL (TOPROL-XL) [...] Radiology: Echocardiogram with somewhat improved EF. Pathology: [facility] BM biopsy Assessment/Plan 1. MDS (myelodysplastic syndrome) [...] malignancies. - [facility] Plan: BM with [...] Evan Mai MD, MS Division of Oncology [phone] [email or web address] - best way to contact CARRIER documented in this encounter Nursing Notes * Donis Adams RN - 03/21/2024 1:40 PM CST Taiwo Palacios is a 63 yo M with AML. We will get a bmbx on patient with chromoseq to assess for TP53 mutation. He is getting treatment locally (currently day 2 of his first cycle). If patient relapases and is TP53 positive he may be a candidate for [id number] a CK1-alpha degrader. Will see back in4 weeks. CARRIER documented in this encounter Plan of Treatment [...] encounter Results * Phosphorus (03/21/2024 12:59 PM TUBE CARRIER) Phosphorus, pl 4.0 2.3 - 4.5 mg/dL Blood 03/21/2024 12:5 9 PM TUBE CARRIER 03/21/2024 1:11 PM TUBE CARRIER Evan Mai MD LAB BLOOD ORDERABLES Final Res ult Performing Organization Address [facility] Co de Phone Number [facility] [place] [address] * Magnesium (03/21/2024 12:59 PM TUBE CARRIER) Magnesium 2.2 1.4 - 2.5 mg/dL Blood 03/21/2024 12:5 9 PM TUBE CARRIER 03/21/2024 1:11 PM TUBE CARRIER Evan Mai MD LAB BLOOD ORDERABLES Final Res ult Performing Organization Address City/[facility]/ZIP Co de Phone Number [facility] Department [place] [employer] [address] * Uric acid (03/21/2024 12:59 PM TUBE CARRIER) Uric acid 4.7 3.0 - 8.0 mg/dL Blood 03/21/2024 12:5 9 PM TUBE CARRIER 03/21/2024 1:11 PM TUBE CARRIER Evan Mai MD LAB BLOOD ORDERABLES Final Res ult Performing Organization Address City/[facility]/ZIP Co de Phone Number [facility] Department [place] [address] documented in this encounter Visit Diagnoses Diagnosis [...] 03/21/2024 documented in this encounter Care Teams Machinist Helper Marine Relationship Specialty Start Date End Date Yaya Britt MD PCP - General 07/31/16 Kaleb Tomlin MD [address] [address] Referring Physician Hematology 02/29/24 Evan Mai MD 1 [facility] [address] DIV IM [place] [address] Consulting Physician Internal Medicine 03/01/24 documented as of this encounter
--- OUTSIDE RECORDS SUMMARY | 2024-04-20 03:14 | XMS_ITS | Encounter Summary ---
Author Organization [facility] Healthcare Address [address] [place] [address] Care Team Providers Care Plastics Nurse Name Role Phone Yaya Britt MD Primary Care Provider Encounter Details Date Type Department Care Team (Late st Contact Info) Description 08/09/2023 Orders Only [facility] Cardiology [address] [place] [address] Provider, MD Austyn [address] [place], [place] [id number] Social History Tobacco Use Types Packs/Day Years Used Date Smoking Tobacco: Former Cigarettes Smokeless Tobacco: Never Alcohol Use Standard Drinks/Week Comments No 0 (1 standard drink = 0.6 oz pur e alcohol) Sex and Gender Information Value Date Recorded Sex Assigned at Not on file Legal Sex Male 2:01 AM RECRUITER Gender Identity Not on file Sexual [...] on filedocumented in this encounter Care Teams Plastics Nurse Relationship Specialty Start Date End Date Yaya Britt MD PCP - General 07/31/16 documented as of this encounter
--- OUTSIDE RECORDS SUMMARY | 2024-04-20 03:14 | XMS_ITS | Encounter Summary ---
Author Organization [facility] Healthcare Address [address] [place] [address] Care Team Providers Care Rubberizing Mechanic Name Role Phone Yaya Britt MD Primary Care Provider [phone] Kaleb Tomlin MD Unavailable [phone] Evan Mai MD Unavailable [phone] Encounter Details Date Type Department Care Team (Late st Contact Info) Description 03/21/2024 12:45 PM INTERIOR DESIGN PROJECT MANAGER Lab [facility] - Lab Collection [address] [facility] [address] [place] [address] Acute myeloid leukemia not having achieved remission [...] on file Legal Sex Male 2:01 AM INTERIOR DESIGN PROJECT MANAGER Gender Identity Not on file Sexual Orientation Not on file documented as of this encounter Plan of Treatment Not on file documented as of this encounter Procedures Procedure Name Priority Date/Time Associated Diagnosis Comments B CHECK SAMPLE STAT 03/21/2024 2:48 PM INTERIOR DESIGN PROJECT MANAGER DIFFERENTIAL AUTO STAT 03/21/2024 1:0 5 PM INTERIOR DESIGN PROJECT MANAGER Acute myeloid leukemia not having achieved remission (HCC) CBC WITH AUTO DIFFERENTIAL STAT 03/21/2024 1:05 PM INTERIOR DESIGN PROJECT MANAGER Acute myeloid leukemia not having achieved remission (HCC) EGFR STAT 03/21/2024 12:59 PM INTERIOR DESIGN PROJECT MANAGER Acute myeloid leukemia not having achieved remission (HCC) CMV, IGG STAT 03/21/2024 12:59 PM INTERIOR DESIGN PROJECT MANAGER Acute myeloid leukemia not having achieved remission (HCC) TYPE AND SCREEN STAT 03/21/2024 12:59 PM INTERIOR DESIGN PROJECT MANAGER Acute myeloid leukemia not having achieved remission (HCC) URIC ACID Routine 03/21/2024 12:59 PM INTERIOR DESIGN PROJECT MANAGER Acute myeloid leukemia not having achieved remission (HCC) PHOSPHORUS Routine 03/21/2024 12:59 PM INTERIOR DESIGN PROJECT MANAGER Acute myeloid leukemia not having achieved remission (HCC) MAGNESIUM Routine 03/21/2024 12:59 PM INTERIOR DESIGN PROJECT MANAGER Acute myeloid leukemia not having achieved remission (HCC) LACTATE DEHYDROGENASE STAT 03/21/2024 12:59 PM INTERIOR DESIGN PROJECT MANAGER Acute myeloid leukemia not having achieved remission (HCC) COMPREHENSIVE METABOLIC PANEL STAT 03/21/2024 12:59 PM INTERIOR DESIGN PROJECT MANAGER Acute myeloid leukemia not having achieved remission (HCC) documented in this encounter Results * Check Sample (03/21/2024 2:48 PM INTERIOR DESIGN PROJECT MANAGER) ABO Rh A Positive [facility] HCLL OTHER 03/21/2024 2:48 PM INTERIOR DESIGN PROJECT MANAGER 03/21/2024 3:43 PM INTERIOR DESIGN PROJECT MANAGER us Evan Mai MD LAB BLOOD ORDERABLES Final Res ult CAITLIN [facility] Department of Laboratories [place], [place] [address] [facility] * (ABNORMAL) Differential, auto (03/21/2024 1:05 PM INTERIOR DESIGN PROJECT MANAGER) Neutrophil abs 0.3(L) 1.5 - 6.5 K/cumm Comment:Testing performed by : [facility], [address] [place], [place] [id number] Lymphocyte abs 0.4(L) 0.8 - 3.3 K/cumm CERNER BJ Comment:Testing performed by : [facility], [address] [place] [address] Monocyte abs 0.1(L) 0.2 - 0.8 K/cumm CERNER BJ Comment:Testing performed by : [facility], [address] [place], [place] [id number] Eosinophil abs 0.0 0.0 - 0.5 K/cumm [facility] Comment:Testing performed by : [facility], [address] [place] [address] Basophil abs 0.0 0.0 - 0.1 K/cumm CERNER BJ Comment:Testing performed by : [facility], [address] [place] [address] Neutrophil pct 36.7 % [facility] Comment: Interpretive Data Percent cell count reference ranges are not reported, since discordance with absolute values may lead to misinterpretation of CBC data. Current Interpretive Data was last revised on 2017. Testing performed by: [facility], [address] [place] [address] Lymphocyte pct 52.1 % [facility] Comment: Interpretive Data Percent cell count reference ranges are not reported, since discordance with absolute values may lead to misinterpretation of CBC data. Current Interpretive Data was last revised on 2017. Testing performed by: [facility], [address] [place] [address] Monocyte pct 9.0 % [facility] Comment: Interpretive Data Percent cell count reference ranges are not reported, since discordance with absolute values may lead to misinterpretation of CBC data. Current Interpretive Data was last revised on 2017. Testing performed by: [facility], [address] [place] [phone] Eosinophil pct 0.1 % CAITLIN [facility] Comment: Interpretive Data Percent cell count reference ranges are not reported, since discordance with absolute values may lead to misinterpretation of CBC data. Current Interpretive Data was last revised on 2017. Testing performed by: [facility], [address] [place] [phone] Basophil pct 2.1 % CAITLIN [facility] Comment: Interpretive Data Percent cell count reference ranges are not reported, since discordance with absolute values may lead to misinterpretation of CBC data. Current Interpretive Data was last revised on 2017. Testing performed by: [facility], [address] [place] [phone] Blood 03/21/2024 1:05 PM INTERIOR DESIGN PROJECT MANAGER 03/21/2024 1:06 PM INTERIOR DESIGN PROJECT MANAGER Evan Mai MD LAB BLOOD ORDERABLES Final Res ult [facility] Department [place] [address] * (ABNORMAL) CBC with auto differential (03/21/2024 1:05 PM INTERIOR DESIGN PROJECT MANAGER) WBC 0.7(L) 3.8 - 9.9 K/cumm Comment:Testing performed by : [facility], [address] [place] [phone] Hgb 6.5(L) 13.0 - 17.5 g/dL CAITLIN [facility] Comment: Critical Result HGB:6.5 Called to and read back by: GERMAINE SEGUNDO RN at: 03/21/2024 13:32:52 by:DAVY. Testing performed by: [facility], [address] [place] [phone] Hct 19.8(L) 38.9 - 50.3 % CAITLIN ANDERSON Comment:Testing performed by : [facility], [address] [place] [address] Plt 45(L) 150 - 400 K/cumm CERRAMAN [facility] Comment:Testing performed by : [facility], [address] [place] [address] MPV 8.3 6.8 - 10.4 fL CERRAMAN [facility] Comment:Testing performed by : [facility], [address] [place], [place] [phone] RBC 2.31(L) 4.30 - 5.80 M/cumm CERRAMAN BJ Comment:Testing performed by : [facility], [address] [place] [address] MCV 85.7 81.3 - 96.4 fL CERRAMAN [facility] Comment:Testing performed by : [facility], [address] [place], [place] [phone] MCH 28.1 27.1 - 33.3 pg CERRAMAN [facility] Comment:Testing performed by : [facility], [address] [place] [address] MCHC 32.7 32.3 - 35.7 g/dL CERRAMAN [facility] Comment:Testing performed by : [facility], [address] [place] [address] RDW CV 20.4(H) 11.1 - 14.9 % BANNERRAMAN [facility] Comment:Testing performed by : [facility], [address] [place] [address] NRBC abs 0.00 0.00 - 0.01 K/cumm BANNERRAMAN [facility] Comment:Testing performed by : [facility], [address] [place] [address] Blood 03/21/2024 1:05 PM INTERIOR DESIGN PROJECT MANAGER 03/21/2024 1:06 PM INTERIOR DESIGN PROJECT MANAGER us Evan Mai MD LAB BLOOD ORDERABLES Final Res ult [facility] Department [place] [address] * eGFR (03/21/2024 12:59 PM INTERIOR DESIGN PROJECT MANAGER) eGFR >90 >=60 mL/min/1. 73 m2 Comment: [...] reviewed 2021. Blood 03/21/2024 12:5 9 PM INTERIOR DESIGN PROJECT MANAGER 03/21/2024 1:11 PM INTERIOR DESIGN PROJECT MANAGER us Evan Mai MD LAB BLOOD ORDERABLES Final Res ult CAITLIN [facility] [place] [address] * Uric acid (03/21/2024 12:59 PM INTERIOR DESIGN PROJECT MANAGER) Uric acid 4.7 3.0 - 8.0 mg/dL Blood 03/21/2024 12:5 9 PM INTERIOR DESIGN PROJECT MANAGER 03/21/2024 1:11 PM INTERIOR DESIGN PROJECT MANAGER Evan Mai MD LAB BLOOD ORDERABLES Final Res ult Performing Organization Address City/[facility] [place] [address] * Magnesium (03/21/2024 12:59 PM INTERIOR DESIGN PROJECT MANAGER) Pathologist [facility] Magnesium 2.2 1.4 - 2.5 mg/dL Blood 03/21/2024 12:5 9 PM INTERIOR DESIGN PROJECT MANAGER 03/21/2024 1:11 PM INTERIOR DESIGN PROJECT MANAGER Evan Mai MD LAB BLOOD ORDERABLES Final Res ult Performing Organization Address [facility] Co de Phone Number [facility] [place] [address] * Phosphorus (03/21/2024 12:59 PM INTERIOR DESIGN PROJECT MANAGER) Pathologist [facility] Phosphorus, pl 4.0 2.3 - 4.5 mg/dL Blood 03/21/2024 12:5 9 PM INTERIOR DESIGN PROJECT MANAGER 03/21/2024 1:11 PM INTERIOR DESIGN PROJECT MANAGER Evan Mai MD LAB BLOOD ORDERABLES Final Res ult Performing Organization Address [facility] de Phone Number [facility] [place] [address] * (ABNORMAL) CMV, IgG Blood (03/21/2024 12:59 PM INTERIOR DESIGN PROJECT MANAGER) [facility] CMV IgG Positive( A) Negative Comment: Interpretive [...] CMV infection. Blood 03/21/2024 12:5 9 PM INTERIOR DESIGN PROJECT MANAGER 03/21/2024 2:17 PM INTERIOR DESIGN PROJECT MANAGER Evan Mai MD LAB MICROBIOLOGY - GENERAL ORD ERABLES Final Result Performing Organization Address City/[facility]/ZIP Co de Phone Number [facility] Department [place] [address] * Type and screen (03/21/2024 12:59 PM INTERIOR DESIGN PROJECT MANAGER) [facility] ABO Rh A Positive Adalgisa, indirect Negative [facility] Blood 03/21/2024 12:5 9 PM INTERIOR DESIGN PROJECT MANAGER 03/21/2024 1:29 PM INTERIOR DESIGN PROJECT MANAGER Narrative [facility] - 03/21/2024 2:27 PM INTERIOR DESIGN PROJECT MANAGER Has the patient had Daratumumab or Isatuximab in the past 6 months?->Unknown Evan Mai MD LAB BLOOD BANK TEST ORDERABLES Final Result Performing Organization Address [facility] Co de Phone Number [facility] Department [place] [address] * (ABNORMAL) Comprehensive metabolic panel (03/21/2024 12:59 PM INTERIOR DESIGN PROJECT MANAGER) [facility] Sodium 133(L) 135 - 145 mmol/L Potassium, pl 4.7 3.3 - 4.9 mmol/L [facility] Chloride 103 97 - 110 mmol/L [facility] CO2 27 22 - 32 mmol/L [facility] Anion gap 3 2 - 15 mmol/L [facility] BUN 26(H) 6 - 25 mg/dL [facility] Creatinine 0.77(L) 0.80 - 1.30 mg/dL [facility] Glucose 119 70 - 199 mg/dL [facility] Comment: Interpretive Data Fasting glucose [...] 2022. Calcium 9.2 8.5 - 10.3 mg/dL [facility] Bilirubin, total 0.4 0.1 - 1.2 mg/dL CERNER [facility] Protein, pl 8.5 6.5 - 8.5 g/dL CERNER [facility] Albumin 3.2(L) 3.5 - 5.0 g/dL CERNER [facility] Alk phos 88 40 - 130 Units/L CERNER [facility] ALT 5(L) 7 - 55 Units/L BANNERNER [facility] AST 14 10 - 50 Units/L [facility] Blood 03/21/2024 12:5 9 PM INTERIOR DESIGN PROJECT MANAGER 03/21/2024 1:11 PM INTERIOR DESIGN PROJECT MANAGER Evan Mai MD LAB BLOOD ORDERABLES Final Res ult Performing Organization Address City/[facility]/ZIP Co de Phone Number [facility] Department [place] [address] * (ABNORMAL) Lactate dehydrogenase (LD) (03/21/2024 12:59 PM INTERIOR DESIGN PROJECT MANAGER) Lactate dehydrogenase (LDH) 267(H) 100 - 250 Units/L Blood 03/21/2024 12:5 9 PM INTERIOR DESIGN PROJECT MANAGER 03/21/2024 1:11 PM INTERIOR DESIGN PROJECT MANAGER Evan Mai MD LAB BLOOD ORDERABLES Final Res ult [facility] Department [place] [address] documented in this encounter Visit Diagnoses Diagnosis Acute myeloid leukemia not having achieved remission (HCC) documented in this encounter Care Teams Rubberizing Mechanic Relationship Specialty Start Date End Date Yaya Britt MD PCP - General 07/31/16 Kaleb Tomlin MD [address] [address] Referring Physician Hematology 02/29/24 Evan Mai MD [address] [facility] [address] DIV [place] [address] Consulting Physician Internal Medicine 03/01/24 documented as of this encounter
--- OUTSIDE RECORDS SUMMARY | 2024-04-20 03:14 | XMS_ITS | Encounter Summary ---
Author Organization [facility] Healthcare Address [address] [place] [address] Care Team Providers Care Ground Water Technician Name Role Phone Yaya Britt MD Primary Care Provider Reason for Visit * Reason Onset Date Comments Surgical Clearance 12/24/2023 Encounter Details Date Type Department Care Team (Late st Contact Info) Description 12/24/2023 Telephone [facility] Medical Group Orthopedic and Sports Medicine [address] [place] [phone] Paola Grady MA Surgical Clearance Social [...] on file Legal Sex Male 2:01 AM SEROLOGY TECHNICIAN Gender Identity Not on file Sexual [...] Lul Yusuf MD to Ebenezer Ruggiero ATC Tx 12/30/23 9:37 AM Please call PCP and [...] 6. What Pharmacy do you prefer - [facility] 7. What outpatient therapy location do you prefer - [facility] Procedure: left total knee replacement DOS: 02/23/24 Surgery Clearance Checklist: [x] PCP: Yaya Britt [x] Cardiology: Haydee Obregon [] Endocrinology: [] Pulmonology: [] Neurology: [] Other: Blood Thinner: [] Yes Name of medication: [x] No Is patient a Diabetic: [] Yes [x] No Preferred Outpatient Physical Therapy location: [facility] Reviewed with patient surgery clearance requirements that [...] on filedocumented in this encounter Care Teams Ground Water Technician Relationship Specialty Start Date End Date Yaya Britt MD PCP - General 07/31/16 documented as of this encounter
--- OUTSIDE RECORDS SUMMARY | 2024-04-20 03:15 | XMS_ITS | Encounter Summary ---
Author Organization [facility] Medical Group Address [address] [place] [address] Care Team Providers Care Neonatal Nurse Practitioner Name Role Phone Yaya Britt MD Primary Care Provider Encounter Details Date Type Department Care Team (Late st Contact Info) Description 08/26/2017 Orders Only [facility] Health Information Management [address] [place] [phone] Scanning, Provider Social History Tobacco Use Types Packs/Day Years Used Date Smoking Tobacco: Every Day Smokeless Tobacco: Never Alcohol Use Standard Drinks/Week Comments No 0 (1 standard drink = 0.6 oz pur e alcohol) Sex and Gender Information Value Date Recorded Sex Assigned at Not on file Legal Sex Male 2:01 AM HEAD BUYER TOBACCO Gender Identity Not on file Sexual Orientation [...] on filedocumented in this encounter Care Teams Neonatal Nurse Practitioner Relationship Specialty Start Date End Date Yaya Britt MD PCP - General 07/31/16 documented as of this encounter
--- OUTSIDE RECORDS SUMMARY | 2024-04-20 03:15 | XMS_ITS | Encounter Summary ---
Author Organization [facility] Medical Group Address [address] [place] [address] Care Team Providers Care Nurse Care Manager Name Role Phone Yaya Britt MD Primary Care Provider Encounter Details Date Type Department Care Team (Late st Contact Info) Description 07/22/[address] [facility] Medical Group at [place] [address] [address] Nataly Seymour MD [address] [facility] [address] [place] [address] Social History Tobacco Use Types Packs/Day Years Used Date Smoking Tobacco: Every Day Smokeless Tobacco: Never Alcohol Use Standard Drinks/Week Comments No 0 (1 standard drink = 0.6 oz pur e alcohol) Sex and Gender Information Value Date Recorded Sex Assigned at Not on file Legal Sex Male 2:01 AM DIRECTOR OF SPORTS PERFORMANCE Gender Identity Not on file Sexual Orientation [...] from your office. In accordance with the [facility] Code Policy dated October 2002, we have completed your order by using the closest currently or formerly recognized AMA panel. ??We have assigned Comprehensive Metabolic Panel (14), Test Code #197397 to this request. ??If this is not the testing you wished to receive on this specimen, please contact the [facility] Client Inquiry/Technical Services Department to clarify the test order. ??We appreciate your business. 07/22/2017 9:55 AM CDT 07/22/2017 Narrative [facility] - 07/23/2017 7:35 AM CDT Performed at: ??[address] ??[id number] Dye Mixer: Tima Kim PhD, Phone: ??[phone] us Nataly Seymour MD LAB BLOOD ORDERABLES [...] 7:35 AM CDT Performed at: ??[address] - [address] ??[id number] Dye Mixer: Tima Kim PhD, Phone: ??[phone] us Nataly eSymour MD LAB BLOOD ORDERABLES Final Resul t [...] from your office. In accordance with the [facility] Ambiguous Test Code Policy dated October 2002, we have assigned CBC with Differential/Platelet, Test Code #783845 to this request. If this is not the testing you wished to receive on this specimen, please contact the [facility] Technical Services Department to clarify the test order. We appreciate your business. 07/22/2017 9:55 AM CDT 07/22/2017 Narrative [facility] - 07/23/2017 7:35 AM CDT Performed at: ??[address] - [address] ??[id number] Dye Mixer: Tima Kim PhD, Phone: ??[phone] us Nataly Seymour MD LAB BLOOD ORDERABLES Final Resul t [facility] - 01 documented in this encounter Visit Diagnoses Not on filedocumented in this encounter Care Teams Nurse Care Manager Relationship Specialty Start Date End Date Yaya Britt MD PCP - General 07/31/16 documented as of this encounter
--- OUTSIDE RECORDS SUMMARY | 2024-04-20 03:15 | XMS_ITS | Encounter Summary ---
Author Organization [facility] Healthcare Address [address] [place] [address] Care Team Providers Care Limousine Driver Name Role Phone Yaya Britt MD Primary Care Provider [phone] Encounter Details Date Type Department Care Team (Late st Contact Info) Description 07/06/2023 Orders Only [facility] Medical Group Cardiology [address] [place] [address] [place] [address] [place] [address] Social History Tobacco Use Types Packs/Day Years Used Date Smoking Tobacco: Every Day Smokeless Tobacco: Never Alcohol Use Standard Drinks/Week Comments No 0 (1 standard drink = 0.6 oz pur e alcohol) Sex and Gender Information Value Date Recorded Sex Assigned at Not on file Legal Sex Male 2:01 AM FINANCE EXECUTIVE Gender Identity Not on file Sexual Orientation Not on file documented as of this encounter Plan of Treatment Not on file documented as of this encounter Procedures Procedure Name Priority Date/Time Associated Diagnosis Comments CARDIOLOGY DOCUMENT SCAN Routine 024 10:30 AM FINANCE EXECUTIVE CARDIOLOGY DOCUMENT SCAN Routine 024 10:18 AM FINANCE EXECUTIVE CARDIOLOGY DOCUMENT SCAN Routine 024 10:03 AM FINANCE EXECUTIVE documented in this encounter Results * Cardiology Document Scan (07/03/2023 10:30 AM FINANCE EXECUTIVE) Anatomical Region Laterality Modality Other us Jose Elias Sage MD CV CARDIAC SERVICES [facility] Final Result * Cardiology Document Scan (07/01/2023 10:18 AM FINANCE EXECUTIVE) Anatomical Region Laterality Modality Other Haydee Obregon MD CV CARDIAC SERVICES PRO CEDURES Final Result * Cardiology Document Scan (06/30/2023 10:03 AM FINANCE EXECUTIVE) Anatomical Region Laterality Modality Other us Haydee Obregon MD CV CARDIAC SERVICES PRO CEDURES Final Result documented in this encounter Visit Diagnoses Not on filedocumented in this encounter Care Teams Limousine Driver Relationship Specialty Start Date End Date Yaya Britt MD PCP - General 07/31/16 documented as of this encounter
--- OUTSIDE RECORDS SUMMARY | 2024-04-20 03:15 | XMS_ITS | Encounter Summary ---
Author Organization [facility] Medical Group Address [address] [place] [address] Care Team Providers Care Engineer Internship Name Role Phone Yaya Britt MD Primary Care Provider Encounter Details Date Type Department Care Team (Late st Contact Info) Description 07/14/2017 Orders Only [facility] Medical Group at [place] [address], [place] [address] Nataly Seymour MD [address] [facility] [address] [place] [address] Social History Tobacco Use Types Packs/Day Years Used Date Smoking Tobacco: Every Day Smokeless Tobacco: Never Alcohol Use Standard Drinks/Week Comments No 0 (1 standard drink = 0.6 oz pur e alcohol) Sex and Gender Information Value Date Recorded Sex Assigned at Not on file Legal Sex Male 2:01 AM GASKET INSPECTOR Gender Identity Not on file Sexual [...] documented as of this encounter Care Teams Engineer Internship Relationship Specialty Start Date End Date Yaya Britt MD PCP - General 07/31/16 documented as of this encounter
--- OUTSIDE RECORDS SUMMARY | 2024-04-20 03:15 | XMS_ITS | Encounter Summary ---
Author Organization [facility] Medical Group Address [address] [place] [address] Care Team Providers Care Residential Treatment Counselor Name Role Phone Yaya Britt MD Primary Care Provider Encounter Details Date Type Department Care Team (Late st Contact Info) Description 04/13/2017 Orders Only [facility] Medical Group at [place] [address], [place] [address] Nataly Seymour MD [address] [facility] [address] [place] [address] Social History Tobacco Use Types Packs/Day Years Used Date Smoking Tobacco: Every Day Smokeless Tobacco: Never Alcohol Use Standard Drinks/Week Comments No 0 (1 standard drink = 0.6 oz pur e alcohol) Sex and Gender Information Value Date Recorded Sex Assigned at Not on file Legal Sex Male 2:01 AM TACK CUTTER Gender Identity Not on file Sexual Orientation [...] documented as of this encounter Care Teams Residential Treatment Counselor Relationship Specialty Start Date End Date Yaya Britt MD PCP - General 07/31/16 documented as of this encounter
--- OUTSIDE RECORDS SUMMARY | 2024-04-20 03:15 | XMS_ITS | Encounter Summary ---
Author Organization [facility] Medical Group Address [address] [facility] [address] [place] [address] Care Team Providers Care Assistant Maintenance Manager Name Role Phone Yaya Britt MD Primary Care Provider Encounter Details Date Type Department Care Team (Late st Contact Info) Description 02/03/2017 Orders Only [facility] Health Information Management [address] [place] [address] Scanning, Provider Social History Tobacco Use Types Packs/Day Years Used Date Smoking Tobacco: Every Day Smokeless Tobacco: Never Alcohol Use Standard Drinks/Week Comments No 0 (1 standard drink = 0.6 oz pur e alcohol) Sex and Gender Information Value Date Recorded Sex Assigned at Not on file Legal Sex Male 2:01 AM SPIRITUAL ADVISOR Gender Identity Not on file Sexual Orientation [...] on filedocumented in this encounter Care Teams Assistant Maintenance Manager Relationship Specialty Start Date End Date Yaya Britt MD PCP - General 07/31/16 documented as of this encounter
--- OUTSIDE RECORDS SUMMARY | 2024-04-20 03:15 | XMS_ITS | Encounter Summary ---
Author Organization [facility] Address [address] [facility] [address] [place] [address] Care Team Providers Care Environmental Services Lead Name Role Phone Yaya Britt MD Primary Care Provider [phone] Encounter Details Date Type Department Care Team (Late st Contact Info) Description 02/15/2017 Orders Only [facility] Medical Group at [place] [address] [address] Nataly Seymour MD [address] [facility] [address] [place] [address] Social History Tobacco Use Types Packs/Day Years Used Date Smoking Tobacco: Every Day Smokeless Tobacco: Never Alcohol Use Standard Drinks/Week Comments No 0 (1 standard drink = 0.6 oz pur e alcohol) Sex and Gender Information Value Date Recorded Sex Assigned at Not on file Legal Sex Male 2:01 AM WARP HAULER Gender Identity Not on file Sexual [...] as of this encounter Care Teams Environmental Services Lead Relationship Specialty Start Date End Date Yaya Britt MD PCP - General 07/31/16 documented as of this encounter
--- OUTSIDE RECORDS SUMMARY | 2024-04-20 03:15 | XMS_ITS | Encounter Summary ---
Author Organization [facility] Healthcare Address [address] [place] [address] Care Team Providers Care Radio Operator Ground Name Role Phone Yaya Britt MD Primary Care Provider Encounter Details Date Type Department Care Team (Late st Contact Info) Description 02/17/2016 10:37 AM CDT - 02/17/2016 11:59 PM CDT Hospital Encounter [facility] Nataly Seymour MD [address] [facility] [address] [place] [address] Rheumatoid arthritis (CMS/HCC); Other care home (current) drug therapy Social History Tobacco Use Types Packs/Day Years Used Date Smoking Tobacco: Every Day Alcohol Use Standard Drinks/Week Comments No 0 (1 standard drink = 0.6 oz pur e alcohol) Sex and Gender Information Value Date Recorded Sex Assigned at Not on file Legal Sex Male 2:01 AM RECEPTIONIST Gender Identity Not on file Sexual [...] Diagnoses Diagnosis Rheumatoid arthritis (HCC) Other terminal press operator (current) drug therapy documented in this encounter Care Teams Radio Operator Ground Relationship Specialty Start Date End Date Yaya Britt MD PCP - General 09/13/13 07/30/16 documented as of this encounter
--- OUTSIDE RECORDS SUMMARY | 2024-04-20 03:15 | XMS_ITS | Encounter Summary ---
Author Organization [facility] Medical Group Address [address] [facility] [address] [place] [address] Care Team Providers Care Director Agency & Strategic Partnerships Name Role Phone Yaya Britt MD Primary Care Provider [phone] Reason for Visit * Reason Onset Date Comments Du Med Refill 12/18/2016 Encounter Details Date Type Department Care Team (Late st Contact Info) Description 12/18/[address] [facility] Medical Group at [address] [address] Nataly Seymour MD [address] [facility] [address] [place], [place] [id number] Du Med Refill Social History Tobacco Use Types Packs/Day Years Used Date Smoking Tobacco: Every Day Alcohol Use Standard Drinks/Week Comments No 0 (1 standard drink = 0.6 oz pur e alcohol) Sex and Gender Information Value Date Recorded Sex Assigned at Not on file Legal Sex Male 2:01 AM TECHNOLOGIES DIVISION CHAIR Gender Identity Not on file Sexual Orientation Not on file documented as of this encounter Miscellaneous Notes * Telephone Encounter - Foster Lara MA - 12/18/2016 10:07 AM CDT Pt picked up * Telephone Encounter - Nataly Seymour MD - 12/18/2016 9:49 AM CDT Script printed * Telephone Encounter - Nora Riggs - 12/18/2016 8:45 AM CDT Pt req to quill picking machine operator hydrocodone scripts today please documented in this encounter Plan of Treatment Not on file documented as of this encounter Visit Diagnoses Not on filedocumented in this encounter Care Teams Director Agency & Strategic Partnerships Relationship Specialty Start Date End Date Yaya Britt MD PCP - General 07/31/16 documented as of this encounter
--- OUTSIDE RECORDS SUMMARY | 2024-04-20 03:15 | XMS_ITS | Encounter Summary ---
Author Organization [facility] Healthcare Address [address] [place] [address] Care Team Providers Care Catering Attendant Name Role Phone Yaya Britt MD Primary Care Provider [phone] Encounter Details Date Type Department Care Team (Late st Contact Info) Description 11/13/2015 9:46 AM CDT - 11/13/2015 11:59 PM CDT Hospital Encounter [facility] Nataly Seymour MD [address] [facility] [address] [place] [address] Rheumatoid arthritis (CMS/HCC); Other [facility] (current) drug therapy Social History Tobacco Use Types Packs/Day Years Used Date Smoking Tobacco: Every Day Alcohol Use Standard Drinks/Week Comments No 0 (1 standard drink = 0.6 oz pur e alcohol) Sex and Gender Information Value Date Recorded Sex Assigned at Not on file Legal Sex Male 2:01 AM TELEPHONE COLLECTOR Gender Identity Not on file Sexual Orientation [...] Diagnoses Diagnosis Rheumatoid arthritis (HCC) Other termite control representative (current) drug therapy documented in this encounter Care Teams Catering Attendant Relationship Specialty Start Date End Date Yaya Britt MD PCP - General 09/13/13 07/30/16 documented as of this encounter
--- OUTSIDE RECORDS SUMMARY | 2024-04-20 03:15 | XMS_ITS | Encounter Summary ---
Author Organization [facility] Healthcare Address [address] [place] [address] Care Team Providers Care Nurse Executive Name Role Phone Yaya Britt MD Primary Care Provider Encounter Details Date Type Department Care Team (Late st Contact Info) Description 12/19/2015 9:55 AM CDT - 12/19/2015 11:59 PM CDT Hospital Encounter [facility] Nataly Seymour MD [address] [facility] [address] [place] [address] Other skilled nursing (current) drug therapy Social History Tobacco Use Types Packs/Day Years Used Date Smoking Tobacco: Every Day Alcohol Use Standard Drinks/Week Comments No 0 (1 standard drink = 0.6 oz pur e alcohol) Sex and Gender Information Value Date Recorded Sex Assigned at Not on file Legal Sex Male 2:01 AM CIGAR MACHINE FEEDER Gender Identity Not on file Sexual Orientation [...] of this encounter Visit Diagnoses Diagnosis Other salvage determiner (current) drug therapy documented in this encounter Care Teams Nurse Executive Relationship Specialty Start Date End Date Yaya Britt MD PCP - General 09/13/13 07/30/16 documented as of this encounter
--- OUTSIDE RECORDS SUMMARY | 2024-04-20 03:15 | XMS_ITS | Encounter Summary ---
Author Organization [facility] Medical Group Address [address] [facility] [address] [place] [address] Care Team Providers Care Cabinet Worker Name Role Phone Yaya Britt MD Primary Care Provider [phone] Encounter Details Date Type Department Care Team (Late st Contact Info) Description 10/16/2016 Orders Only [facility] Medical Group at [place] [address] [address] Nataly Seymour MD [address] [facility] [address] [place] [address] Social History Tobacco Use Types Packs/Day Years Used Date Smoking Tobacco: Every Day Alcohol Use Standard Drinks/Week Comments No 0 (1 standard drink = 0.6 oz pur e alcohol) Sex and Gender Information Value Date Recorded Sex Assigned at Not on file Legal Sex Male 2:01 AM YARN SIZER Gender Identity Not on file Sexual Orientation [...] on filedocumented in this encounter Care Teams Cabinet Worker Relationship Specialty Start Date End Date Yaya Britt MD PCP - General 07/31/16 documented as of this encounter
--- OUTSIDE RECORDS SUMMARY | 2024-04-20 03:15 | XMS_ITS | Encounter Summary ---
Author Organization [facility] Healthcare Address [address] [place] [address] Care Team Providers Care Merchandise Flow Associate Name Role Phone Yaya Britt MD Primary Care Provider [phone] Reason for Referral * Diagnostic Imaging (Routine) - Closed Specialty Diagnoses / Procedures Referred By Taco crawford Referred To Contact Diagnoses Other rheumatoid arthritis with rheumatoid factor of multiple sites (HCC) Procedures XR Knee Left 1 or 2 Views Nataly Seymour MD Phone: tel: fax: [place] [address] [place] [address] Referral ID Status Reason Start Date Expiration Date Visits Re quested Visits Authorized [id number] Closed 01/30/2022 03/01/2023 1 1 Reason for Visit * Diagnostic Imaging (Routine) - Closed Specialty Diagnoses / Procedures Referred By Taco crawford Referred To Contact Diagnoses 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 - Imaging [address] [place] [address] Other rheumatoid arthritis with rheumatoid [...] on file Legal Sex Male 2:01 AM REFINERY OPERATOR GAS PLANT Gender Identity Not on file Sexual Orientation [...] narrowing of the medial joint space with [id number]-[id number] appearance and marked narrowing of the lateral joint space with near [id number]-[id number] appearance there. ??There is marked narrowing of [...] narrowing of the medial joint space with ooxd-or-tohb appearance and marked narrowing of the lateral joint space with near [id number]-[id number] appearance there. There is marked narrowing of [...] (HCC) documented in this encounter Care Teams Merchandise Flow Associate Relationship Specialty Start Date End Date Yaya Britt MD PCP - General 07/31/16 documented as of this encounter
--- OUTSIDE RECORDS SUMMARY | 2024-04-20 03:15 | XMS_ITS | Encounter Summary ---
Author Organization [facility] Address [address] [facility] [address] [place] [address] Care Team Providers Care Defect Cutter Name Role Phone Yaya Britt MD Primary Care Provider Encounter Details Date Type Department Care Team (Late st Contact Info) Description 04/28/2017 2:00 PM ARMORED VEHICLE OFFICER Office Visit [facility] Group at [address] [address] Nataly Seymour MD [address] [facility] [address] [place] [address] Rheumatoid arthritis of multiple sites without rheumatoid [...] on file Legal Sex Male 2:01 AM ARMORED VEHICLE OFFICER Gender Identity Not on file Sexual Orientation Not on file documented as of this encounter Last Filed Vital Signs Vital Sign Reading Time Taken Comments Blood Pressure 122/78 04/28/2017 2:01 PM ARMORED VEHICLE OFFICER Pulse 76 04/28/2017 2:01 PM ARMORED VEHICLE OFFICER Temperature 36.8 ??C (98.2 ??F) 04/28/2017 2:01 PM CS T Respiratory Rate 18 04/28/2017 2:01 PM ARMORED VEHICLE OFFICER Oxygen Saturation 98% 04/28/2017 2:01 PM ARMORED VEHICLE OFFICER Inhaled Oxygen Concentration - - Weight 95.3 kg (210 lb 3.2 oz) 04/28/2017 2:01 P M ARMORED VEHICLE OFFICER Height 172.7 cm (5' 8 ) 04/28/2017 2:01 PM ARMORED VEHICLE OFFICER Body Mass Index 31.96 04/28/2017 2:01 PM ARMORED VEHICLE OFFICER documented in this encounter Ordered Prescriptions Prescription [...] Seymour MD - 04/28/2017 2:00 PM CST [facility] at [facility]- Rheumatology [address] [place] [address] Subjective/Objective Patient ID: Taiwo Palacios is a [...] Earliest Fill Date: 05/17/17. Nataly Seymour MD RED VEHICLE OFFICER documented in this encounter Plan of Treatment [...] documented as of this encounter Care Teams Defect Cutter Relationship Specialty Start Date End Date Yaya Britt MD PCP - General 07/31/16 documented as of this encounter
--- OUTSIDE RECORDS SUMMARY | 2024-04-20 03:15 | XMS_ITS | Encounter Summary ---
Author Organization [facility] Medical Group Address [address] [facility] [address] [place] [address] Care Team Providers Care Aeronautical Project Engineer Name Role Phone Yaya Britt MD Primary Care Provider [phone] Encounter Details Date Type Department Care Team (Late st Contact Info) Description 11/13/2016 Orders Only [facility] Medical Group at [place] [address], [place] [address] Nataly Seymour MD [address] [facility] [address] [place] [address] Social History Tobacco Use Types Packs/Day Years Used Date Smoking Tobacco: Every Day Alcohol Use Standard Drinks/Week Comments No 0 (1 standard drink = 0.6 oz pur e alcohol) Sex and Gender Information Value Date Recorded Sex Assigned at Not on file Legal Sex Male 2:01 AM RENAL MEDICINE SPECIALIST Gender Identity Not on file Sexual Orientation [...] on filedocumented in this encounter Care Teams Aeronautical Project Engineer Relationship Specialty Start Date End Date Yaya Britt MD PCP - General 07/31/16 documented as of this encounter
--- OUTSIDE RECORDS SUMMARY | 2024-04-20 03:15 | XMS_ITS | Encounter Summary ---
Author Organization [facility] Medical [facility] Address [address] [facility] [address] [place] [address] Care Team Providers Care Steward/Stewardess Smoke Room Name Role Phone Yaya Britt MD Primary Care Provider [phone] Encounter Details Date Type Department Care Team (Late st Contact Info) Description 11/16/2016 Orders Only [facility] at [place] [address] [address] Nataly Seymour MD [address] [facility] [address] [place] [address] Social History Tobacco Use Types Packs/Day Years Used Date Smoking Tobacco: Every Day Alcohol Use Standard Drinks/Week Comments No 0 (1 standard drink = 0.6 oz pur e alcohol) Sex and Gender Information Value Date Recorded Sex Assigned at Not on file Legal Sex Male 2:01 AM ABORIGINAL LIAISON OFFICER Gender Identity Not on file Sexual [...] documented as of this encounter Care Teams Steward/Stewardess Smoke Room Relationship Specialty Start Date End Date Yaya Britt MD PCP - General 07/31/16 documented as of this encounter
--- OUTSIDE RECORDS SUMMARY | 2024-04-20 03:15 | XMS_ITS | Encounter Summary ---
Author Organization [facility] Address [address] [facility] [address] [place] [address] Care Team Providers Care Liner Machine Operator Helper Name Role Phone Yaya Britt MD Primary Care Provider [phone] Encounter Details Date Type Department Care Team (Late st Contact Info) Description 06/16/[address] [facility] Medical [facility] at [place] [address] [address] Nataly Seymour MD [address] [facility] [address] [place] [address] Social History Tobacco Use Types Packs/Day Years Used Date Smoking Tobacco: Every Day Smokeless Tobacco: Never Alcohol Use Standard Drinks/Week Comments No 0 (1 standard drink = 0.6 oz pur e alcohol) Sex and Gender Information Value Date Recorded Sex Assigned at Not on file Legal Sex Male 2:01 AM MILITARY ADMINISTRATIVE TECHNICIAN Gender Identity Not on file Sexual [...] documented as of this encounter Care Teams Liner Machine Operator Helper Relationship Specialty Start Date End Date Yaya Britt MD PCP - General 07/31/16 documented as of this encounter
--- OUTSIDE RECORDS SUMMARY | 2024-04-20 03:15 | XMS_ITS | Encounter Summary ---
Author Organization [facility] Address [address] [facility] [address] [place] [address] Care Team Providers Care Parachute Officer Name Role Phone Yaya Britt MD Primary Care Provider Encounter Details Date Type Department Care Team (Late st Contact Info) Description 01/15/2017 11:00 AM CDT Office Visit [facility] Group at [address] [phone] Nataly Seymour MD [address] [facility] [address] [place] [address] Rheumatoid arthritis of multiple sites without rheumatoid [...] on file Legal Sex Male 2:01 AM CHAMPAGNE MAKER Gender Identity Not on file Sexual Orientation [...] Seymour MD - 01/15/2017 11:00 AM CDT [facility] at [facility]- Rheumatology [address] [place] [address] [place] [address] Subjective/Objective Patient ID: Taiwo Palacios is a [...] documented as of this encounter Care Teams Parachute Officer Relationship Specialty Start Date End Date Yaya Britt MD PCP - General 07/31/16 documented as of this encounter
--- OUTSIDE RECORDS SUMMARY | 2024-04-20 03:15 | XMS_ITS | Encounter Summary ---
Author Organization [facility] Address [address] [place] [address] [address] [place] [address] Care Team Providers Care Agency Operator Name Role Phone Yaya Britt MD Primary Care Provider Reason for Visit * Reason Onset Date Comments Prior auth for humira completed and faxed 2016 form put in bin for scanning Encounter Details Date Type Department Care Team (Late st Contact Info) Description 12/14/[address] [facility] Medical Group at [address] [phone] Nataly Seymour MD [address] [facility] [address] [place] [address] Prior auth for humira completed and faxed (form put in bin for scanning) Social History Tobacco Use Types Packs/Day Years Used Date Smoking Tobacco: Every Day Alcohol Use Standard Drinks/Week Comments No 0 (1 standard drink = 0.6 oz pur e alcohol) Sex and Gender Information Value Date Recorded Sex Assigned at Not on file Legal Sex Male 2:01 AM FASHION ARTIST Gender Identity Not on file Sexual Orientation Not on file documented as of this encounter Miscellaneous Notes * Telephone Encounter - Nataly Seymour MD - 12/14/2016 2:01 PM CDT . documented in this encounter Plan of Treatment Not on file documented as of this encounter Visit Diagnoses Not on filedocumented in this encounter Care Teams Agency Operator Relationship Specialty Start Date End Date Yaya Britt MD PCP - General 07/31/16 documented as of this encounter
--- OUTSIDE RECORDS SUMMARY | 2024-04-20 03:15 | XMS_ITS | Encounter Summary ---
Author Organization [facility] Medical Group Address [address] [facility] [address] [place] [address] Care Team Providers Care Health Care Coach Name Role Phone Yaya Britt MD Primary Care Provider Reason for Visit * Reason Onset Date Comments Dr. Seymour Med Refill 10/16/2016 Encounter Details Date Type Department Care Team (Late st Contact Info) Description 10/16/2016 Telephone [facility] Medical Group Patient Access [address] [facility] [address] [place] [address] Nataly Seymour MD [address] [facility] [address] [place] [address] Dr. Seymour Med Refill Social History Tobacco Use Types Packs/Day Years Used Date Smoking Tobacco: Every Day Alcohol Use Standard Drinks/Week Comments No 0 (1 standard drink = 0.6 oz pur e alcohol) Sex and Gender Information Value Date Recorded Sex Assigned at Not on file Legal Sex Male 2:01 AM FOUNTAIN SERVER Gender Identity Not on file Sexual Orientation [...] requesting new script and would like to apple picking supervisor on Wednesday - please advise. documented in this encounter Plan of Treatment Not on file documented as of this encounter Visit Diagnoses Not on filedocumented in this encounter Care Teams Health Care Coach Relationship Specialty Start Date End Date Yaya Britt MD PCP - General 07/31/16 documented as of this encounter
--- OUTSIDE RECORDS SUMMARY | 2024-04-20 03:15 | XMS_ITS | Encounter Summary ---
Author Organization [facility] Medical Group Address [address] [facility] [address] [place] [address] Care Team Providers Care Data Warehouse Manager Name Role Phone Yaya Britt MD Primary Care Provider Encounter Details Date Type Department Care Team (Late st Contact Info) Description 12/18/2016 Orders Only [facility] at [place] [address] [address] Nataly Seymour MD [address] [facility] [address] [place] [address] Social History Tobacco Use Types Packs/Day Years Used Date Smoking Tobacco: Every Day Alcohol Use Standard Drinks/Week Comments No 0 (1 standard drink = 0.6 oz pur e alcohol) Sex and Gender Information Value Date Recorded Sex Assigned at Not on file 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
--- OUTSIDE RECORDS SUMMARY | 2024-04-20 03:15 | XMS_ITS | Encounter Summary ---
Author Organization [facility] Medical Group Address [address] [facility] [address] [place] [address] Care Team Providers Care Pickle Sorter Name Role Phone Yaya Britt MD Primary Care Provider Reason for Visit * Reason Onset Date Comments DU - med question 01/29/2017 Encounter Details Date Type Department Care Team (Late st Contact Info) Description 01/29/2017 Telephone [facility] Medical Group at [address] [address] Nataly Seymour MD [address] [facility] [address] [place], [place] [id number] DU - med question Social History Tobacco Use Types Packs/Day Years Used Date Smoking Tobacco: Every Day Smokeless Tobacco: Never Alcohol Use Standard Drinks/Week Comments No 0 (1 standard drink = 0.6 oz pur e alcohol) Sex and Gender Information Value Date Recorded Sex Assigned at Not on file 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
--- OUTSIDE RECORDS SUMMARY | 2024-04-20 03:15 | XMS_ITS | Encounter Summary ---
Author Organization [facility] Address [address] [address] Care Team Providers Care Ecommerce Manager Name Role Phone Yaya Britt MD Primary Care Provider Reason for Visit * Reason Onset Date Comments Du..pt wants meds called in 11/13/2016 Encounter Details Date Type Department Care Team (Late st Contact Info) Description 11/13/2016 Telephone [facility] at [address] [phone] Yaya Britt MD [address] [address] Du..pt wants meds called in Social History Tobacco Use Types Packs/Day Years Used Date Smoking Tobacco: Every Day Alcohol Use Standard Drinks/Week Comments No 0 (1 standard drink = 0.6 oz pur e alcohol) Sex and Gender Information Value Date Recorded Sex Assigned at Not on file 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 Having trouble walking documented in this encounter Plan of Treatment Not on file documented as of this encounter Visit Diagnoses Not on filedocumented in this encounter Care Teams Ecommerce Manager Relationship Specialty Start Date End Date Yaya Britt MD PCP - General 07/31/16 documented as of this encounter
--- OUTSIDE RECORDS SUMMARY | 2024-04-20 03:15 | XMS_ITS | Encounter Summary ---
Author Organization [facility] Address [address] [place] [address] Care Team Providers Care Residential Solar Consultant Name Role Phone Yaya Britt MD Primary Care Provider Encounter Details Date Type Department Care Team (Late st Contact Info) Description 03/18/2017 Orders Only [facility] at [address], [place] [address] Nataly Seymour MD [address] [facility] [address] [place] [address] Social History Tobacco Use Types Packs/Day Years Used Date Smoking Tobacco: Every Day Smokeless Tobacco: Never Alcohol Use Standard Drinks/Week Comments No 0 (1 standard drink = 0.6 oz pur e alcohol) Sex and Gender Information Value Date Recorded Sex Assigned at Not on file 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
--- OUTSIDE RECORDS SUMMARY | 2024-04-20 03:15 | XMS_ITS | Encounter Summary ---
Author Organization [facility] Address [address] [place] [address] Care Team Providers Care Telephone Order Clerk Name Role Phone Yaya Britt MD Primary Care Provider Encounter Details Date Type Department Care Team (Late st Contact Info) Description 07/14/2023 Orders Only [facility] Cardiology [address] [place] [phone] Inge Price NP [address] [place] [address] Social History Tobacco Use Types Packs/Day Years Used Date Smoking Tobacco: Every Day Smokeless Tobacco: Never Alcohol Use Standard Drinks/Week Comments No 0 (1 standard drink = 0.6 oz pur e alcohol) Sex and Gender Information Value Date Recorded Sex Assigned at Not on file 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 Gender Identity Not on file Sexual Orientation Not on file documented as of this encounter Plan of Treatment Not on file documented as of this encounter Procedures Procedure Name Priority Date/Time Associated Diagnosis Comments CARDIOLOGY DOCUMENT SCAN Routine 024 10:36 AM NETWORK/TELECOM ENGINEER documented in this encounter Results * Cardiology Document Scan (07/02/2023 10:36 AM NETWORK/TELECOM ENGINEER) Anatomical Region Laterality Modality Other Inge Price NP CV CARDIAC SERVICES PROCEDUR ES Final Result documented in this encounter Visit Diagnoses Not on filedocumented in this encounter Care Teams Telephone Order Clerk Relationship Specialty Start Date End Date Yaya Britt MD PCP - General 07/31/16 documented as of this encounter
--- OUTSIDE RECORDS SUMMARY | 2024-04-20 03:15 | XMS_ITS | Encounter Summary ---
Author Organization [facility] Address [address] [place] [address] Care Team Providers Care Size Tester Name Role Phone Yaya Britt MD Primary Care Provider Encounter Details Date Type Department Care Team (Late st Contact Info) Description 01/29/2017 Orders Only [facility] at [id number] [address] Nataly Seymour MD [address] [facility] [address] [place] [address] Social History Tobacco Use Types Packs/Day Years Used Date Smoking Tobacco: Every Day Smokeless Tobacco: Never Alcohol Use Standard Drinks/Week Comments No 0 (1 standard drink = 0.6 oz pur e alcohol) Sex and Gender Information Value Date Recorded Sex Assigned at Not on file 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
[2024-04-20] MEDS: PROPOFOL IV EMULSION 100 ML 14.87 MG IV CONT ×2 (04:50→11:19)
[2024-04-20 04:51] LABS: Alveolar/Arterial O2 Gradient 84.8 mmHg; Base Excess ABG -0.8 mEq/l (+/-2.0); Fractional Inspired Oxygen 30 %; HCO3 ABG 23.1 mEq/l (22.0-26.0); Methemoglobin ABG 0.2 %THb (0-1.5); Oxygen Content ABG 8.8 %vol (16.0-22.0); Oxygen Saturation ABG 97.2 % (95.0-100.0); Oxyhemoglobin 95.3 % THb (90.0-100.0); PCO2 ABG 34.1 mmHg (35.0-45.0); PO2 FiO2 Ratio Arterial Blood 2.97 %; Reduced Hemoglobin 2.5 %THb (0-5.0); pH ABG 7.449 (7.350-7.450)
[2024-04-20 04:55] LABS: Total Hemoglobin 6.4 g/dL (12.0-18.0)
[2024-04-20 04:56] LABS: Device VENTILATOR; Modified Allen's Test Pass; Site Drawn LEFT RADIAL
[2024-04-20 04:57] LABS: Arterial Blood Gas PEEP 5 cmH2O; Arterial Blood Gas Tidal Volume 380 ml; Arterial Blood Gas Vent Mode CMV; Arterial Blood Gas Ventilator rate 18 /MIN
[2024-04-20] MEDS: CENTRAL LINE FLUSH 10 ML IV PUSH ×4 (05:00→21:20)
[2024-04-20] MEDS: LEVOTHYROXINE SODIUM 75 MCG TABLET PO (05:49)
[2024-04-20 06:03] LABS: Basophils Percent Auto 0.6 % (0.2-1.2); Immature Granulocyte Absolute 0.02 K/mm3 (0.00-0.031); Immature Granulocyte Percent A 1.3 % (0-0.5); Lymphocytes Absolute Auto 0.88 K/mm3 (0.9-3.2); Lymphocytes Percent Auto 55.7 % (18.3-44.2); Mean Corpuscular HGB Conc 32.2 g/dl (32-36); Mean Corpuscular Hemoglobin 28.9 pg (26-34); Mean Corpuscular Volume 89.9 fl (80-100); Monocytes Absolute Auto 0.1 K/mm3 (0.1-0.6); Monocytes Percent Auto 6.3 % (2.6-8.5); Neutrophils Absolute Auto 0.6 K/mm3 (1.3-6.7); Neutrophils Percent Auto 36.1 % (45.5-73.1); Platelet Count Result 45 k/mm3 (150-375); Red Blood Count 2.28 M/mm3 (4.6-6.20); Red Cell Distribution Width 17.8 % (11.5-14.5)
[2024-04-20 06:11] LABS: Alanine Aminotransferase 15 U/L (6-50); Albumin Level 2.3 g/dL (3.5-5.1); Alkaline Phosphatase 78 U/L (38-126); Anion Gap 0 mmol/L (4-12); Aspartate Amino Transferase 23 U/L (17-59); Blood Urea Nitrogen 22 mg/dL (9-20); Carbon Dioxide 26 mmol/L (22-30); Chloride 104 mmol/L (98-107); Estimated CRCL calculation 125 ml/min; Estimated Glomerular Filt Rate > 60; Glucose 91 mg/dL (65-110); Magnesium 1.9 mg/dL (1.6-2.3); Phosphorus 3.6 mg/dL (2.5-4.5); Potassium 4.2 mmol/L (3.4-5.0); Sodium 130 mmol/L (137-145)
[2024-04-20 06:25] LABS: White Blood Count 1.6 K/mm3 (4.5-10.0)
[2024-04-20 06:26] LABS: Hematocrit 20.5 % (42.0-52.0); Hemoglobin 6.6 g/dL (14.0-18.0)
[2024-04-20 06:30] LABS: Hypochromasia 1+; Platelet Estimate Decreased (Adequate); Schistocytes None Seen; Target Cells 1+
[2024-04-20] MEDS: FENTANYL 2,500MCG/NS250ML(*CRX 2,500 MCG/250 ML BAG 10 MCG IV CONT (06:40)
--- NOTE | 2024-04-20 08:04 | P.PNINT_ITS ---
Progress Note: A&P Assessment and Plan (1) Septic shock: Code(s): A41.9 - Sepsis, unspecified organism; R65.21 - Severe sepsis with septic shock Status: Acute Assessment and Plan: Septic shock likely related to pneumonia and neutropenic fever -continue cefepime, will discontinue vancomycin since MRSA screen is negative and cultures have been negative - doxycycline for atypical coverage(04/16) for 5 days -lactic acid level has normalized -procalcitonin was 4.6 and C-reactive protein was 18.1 -04/15: Preliminary Blood cultures negative x2 -continue Levophed to maintain mean arterial pressure and which has been weaned off -hold further IV fluids due to congestive heart failure (2) Acute respiratory failure: Code(s): J96.00 - Acute respiratory failure, unspecified whether with hypoxia or hypercapnia Status: Acute Assessment and Plan: Acute respiratory failure secondary to suggestive heart failure and pneumonia 04/19 patient failed his weaning trial due to high RSBI increased work of breathing. ABG and chest x-ray reviewed Continue current tidal volume at 380 and rate to 18 Continue Lasix IV Will try weaning trial post transfusion again today (3) Heart failure with reduced ejection fraction: Code(s): I50.20 - Unspecified systolic (congestive) heart failure Status: Acute Assessment and Plan: HFrEF with EF of 30-35% -cardiomyopathy -On Jardiance, metoprolol, Entresto, spironolactone at home -hold all these medications due to patient in septic shock, hypotension on vasopressors -continue Lasix IV 06/29/2023 echocardiogram Summary 1. Definity contrast administered improved wall motion interpretation. 2. Left ventricular chamber dimension is severely enlarged. 3. Left ventricular systolic function is severely globally reduced, estimated at 30-35%. 4. The left ventricular diastolic function is abnormal. 5. E/e' 13 is mildly elevated. 6. Left atrial chamber dimension is severely enlarged. 7. There is mild mitral valve regurgitation. 8. There is trace tricuspid valve regurgitation. 9. No pulmonary hypertension, estimated pulmonary arterial systolic pressure is 28 mmHg. (4) Pneumonia: Code(s): J18.9 - Pneumonia, unspecified organism Status: Acute Assessment and Plan: Chest x-ray showed bilateral pulmonary diffuse reticular opacities R > L -treatment is above (5) Paroxysmal atrial fibrillation with rapid ventricular response: Code(s): I48.0 - Paroxysmal atrial fibrillation Status: Acute Assessment and Plan: Has a history of paroxysmal AFib, was in AFib RVR in the ER, given septic shock patient was started on amiodarone bolus and infusion - 04/17: Patient was also in AFib RVR overnight and this morning, responded well to amiodarone and metoprolol switch to p.o. amiodarone by Cardiology (6) Neutropenic fever: Code(s): D70.9 - Neutropenia, unspecified; R50.81 - Fever presenting with conditions classified elsewhere Status: Acute Assessment and Plan: Neutropenic fevers likely related to chemotherapy which was done about 3 weeks ago. Patient has not been feeling well for about a week, complained of generalized weakness low-grade fevers -continue treatment as above -s/p one dose of filgrastim -Heme-Onc consultation -neutropenic precautions (7) Pancytopenia: Code(s): D61.818 - Other pancytopenia Status: Acute Assessment and Plan: 04/20 transfuse 1 unit PRBC monitor count (8) MDS (myelodysplastic syndrome): Code(s): D46.9 - Myelodysplastic syndrome, unspecified Status: Acute Assessment and Plan: patient was in evaluated by Oncology. Patient has Myelodysplastic syndrome with TP53 mutation status post bone marrow aspiration and biopsy done on February 17, 2024. Bone marrow biopsy showed blast count of 7-15%. 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 Patient was evaluated by heme Onc and recommendation is for palliative care's since patient has a disease with very poor prognosis. This has been conveyed to patient's family (9) Leukemia: Code(s): C95.90 - Leukemia, unspecified not having achieved remission Status: Acute Assessment and Plan: see above (10) Rheumatoid arthritis: Code(s): M06.9 - Rheumatoid arthritis, unspecified Status: Acute Assessment and Plan: Currently sedated propofol and fed Plan DVT prophylaxis: SCDs, no chemoprophylaxis due to thrombocytopenia, anemia Stress ulcer prophylaxis: Protonix IV q.12 hours Nutrition: Continue tube feeds Code Status: Full code 04/19 I had a long meeting with patient's and daughters yesterday in the conference room and at bedside. It seemed that they were unaware of the details of patient's leukemia/MDS. They were also on aware of the prognosis. I discussed oncologist assessment from his note. I discussed goals of care and code status. They would not ready to make any decisions. Patient is currently full code. I expect explained that I will continue try to wean patient from the ventilator. They were made aware that patient failed his weaning trial. Critical Care Time Spent: 30 minutes Due to a high probability of clinically significant, life threatening deterioration, the patient required my highest level of preparedness to intervene emergently and I personally spent this critical care time directly and personally managing the patient. This critical care time included obtaining a history; examining the patient; pulse oximetry; ordering and review of studies; arranging urgent treatment with development of a management plan; evaluation of patient's response to treatment; frequent reassessment; and discussions with other providers. It was exclusive of separately billable procedures and treating other patients and teaching time. Please see Assessment and Plan section and the rest of the note for further information on patient assessment and treatment This dictation may have been done utilizing a voice recognition system. Attempts have been made to correct errors. However, there may be uncorrected grammatical, spelling, and recognitions errors present. Subjective Date/time seen: 04/20/24 Overnight events reviewed. low-grade fever Continues to be on mechanical ventilation. Failed his weaning trial yesterday Levophed weaned off Continues to be sedated with propofol and fentanyl other Vitals acceptable Interval history: Reason for consult: Patient admitted to the ICU on 04/16/2024 with Septic shock, hypotension, neutropenic fever, pneumonia, atrial fibrillation RVR Review of Systems Review of Systems: ROS unobtainable: Yes unobtainable due to endotracheal tube, unobtainable due to medical condition and unobtainable due to mental status Exam Narrative: General: Intubated and sedated HEENT:? Pupils equal and reactive, sclera is clear, ETT in place Neck:? Supple Respiratory:? Coarse breath sounds bilaterally right greater than left, adequate air entry, no wheezing Cardiac:? Tachycardic, irregular Abdomen:? Soft, nontender, protuberant, hypoactive bowel sounds Extremities:? Bilateral lower extremity pitting edema, palpable pedal pulses Neuro:? Patient intubated and sedated, not following commands or opening his eyes at this time. He does move all his extremities spontaneously intermittently Skin:? Bruising noted Psych:? Flat affect, normal mentation Objective Data Vital Signs Vital Signs: Vital Signs - 24 hr 04/19/24 08:13 04/19/24 09:33 04/19/24 09:33 Temperature Pulse Rate 61 67 67 Respiratory Rate 21 H 20 20 Blood Pressure Pulse Oximetry Oxygen Delivery Fraction of Inspired Oxygen 04/19/24 09:50 04/19/24 10:00 04/19/24 10:00 Temperature Pulse Rate 68 70 69 Respiratory Rate 20 24 H Blood Pressure 125/64 Pulse Oximetry 100 100 Oxygen Delivery Mechanical Ventilation Fraction of Inspired Oxygen 30 04/19/24 10:00 04/19/24 10:00 04/19/24 10:01 Temperature Pulse Rate 69 69 70 Respiratory Rate 24 H Blood Pressure 122/69 Pulse Oximetry Oxygen Delivery Fraction of Inspired Oxygen 04/19/24 10:17 04/19/24 10:55 04/19/24 11:09 Temperature Pulse Rate 70 71 73 Respiratory Rate 28 H Blood Pressure 125/64 Pulse Oximetry 99 Oxygen Delivery Mechanical Ventilation Fraction of Inspired Oxygen 30 04/19/24 11:09 04/19/24 11:18 04/19/24 12:00 Temperature 37.3 C Pulse Rate 73 75 74 Respiratory Rate 28 H 27 H Blood Pressure 130/66 108/59 L Pulse Oximetry 100 Oxygen Delivery Fraction of Inspired Oxygen 04/19/24 12:00 04/19/24 12:00 04/19/24 12:00 Temperature Pulse Rate 74 Respiratory Rate Blood Pressure 108/59 L Pulse Oximetry Oxygen Delivery Mechanical Ventilation Fraction of Inspired Oxygen 30 30 04/19/24 12:00 04/19/24 12:00 04/19/24 12:18 Temperature Pulse Rate 74 73 74 Respiratory Rate 27 H 26 H Blood Pressure Pulse Oximetry Oxygen Delivery Fraction of Inspired Oxygen 04/19/24 12:18 04/19/24 13:01 04/19/24 13:05 Temperature Pulse Rate 74 75 74 Respiratory Rate 26 H Blood Pressure 118/54 L Pulse Oximetry 100 Oxygen Delivery Mechanical Ventilation Fraction of Inspired Oxygen 30 04/19/24 14:00 04/19/24 14:00 04/19/24 14:00 Temperature Pulse Rate 77 78 78 Respiratory Rate 30 H 30 H Blood Pressure 110/52 L Pulse Oximetry Oxygen Delivery Fraction of Inspired Oxygen 04/19/24 14:00 04/19/24 14:00 04/19/24 14:24 Temperature Pulse Rate 78 78 79 Respiratory Rate 30 H Blood Pressure 110/52 L Pulse Oximetry 100 Oxygen Delivery Fraction of Inspired Oxygen 04/19/24 15:48 04/19/24 16:00 04/19/24 16:00 Temperature Pulse Rate 78 77 77 Respiratory Rate 27 H Blood Pressure 106/52 L Pulse Oximetry 99 Oxygen Delivery Mechanical Ventilation Fraction of Inspired Oxygen 30 04/19/24 16:00 04/19/24 16:00 04/19/24 16:00 Temperature Pulse Rate 77 Respiratory Rate 27 H Blood Pressure Pulse Oximetry Oxygen Delivery Mechanical Ventilation Fraction of Inspired Oxygen 30 30 04/19/24 16:00 04/19/24 16:00 04/19/24 18:00 Temperature 37.6 C H Pulse Rate 77 77 77 Respiratory Rate 28 H 26 H Blood Pressure 106/52 L 109/53 L Pulse Oximetry 99 99 Oxygen Delivery Fraction of Inspired Oxygen 04/19/24 18:00 04/19/24 18:00 04/19/24 18:00 Temperature Pulse Rate 77 77 77 Respiratory Rate 26 H 26 H Blood Pressure 109/53 L Pulse Oximetry Oxygen Delivery Fraction of Inspired Oxygen 04/19/24 18:00 04/19/24 19:00 04/19/24 19:11 Temperature Pulse Rate 77 79 78 Respiratory Rate 20 Blood Pressure 112/53 L 112/53 L Pulse Oximetry 100 Oxygen Delivery Fraction of Inspired Oxygen 04/19/24 19:15 04/19/24 19:46 04/19/24 19:50 Temperature Pulse Rate 79 79 Respiratory Rate 21 H 21 H Blood Pressure 107/53 L Pulse Oximetry 99 99 Oxygen Delivery Mechanical Ventilation Fraction of Inspired Oxygen 30 30 04/19/24 20:00 04/19/24 20:00 04/19/24 20:00 Temperature Pulse Rate 77 77 77 Respiratory Rate 25 H 25 H Blood Pressure 107/52 L Pulse Oximetry Oxygen Delivery Fraction of Inspired Oxygen 04/19/24 20:00 04/19/24 20:00 04/19/24 20:16 Temperature 36.1 C L Pulse Rate 79 77 79 Respiratory Rate 25 H 24 H Blood Pressure 107/52 L 115/55 L Pulse Oximetry 99 99 Oxygen Delivery Fraction of Inspired Oxygen 04/19/24 20:19 04/19/24 22:00 04/19/24 22:00 Temperature Pulse Rate 79 79 80 Respiratory Rate 22 H Blood Pressure 110/53 L Pulse Oximetry 98 97 Oxygen Delivery Mechanical Ventilation Fraction of Inspired Oxygen 30 04/19/24 22:00 04/19/24 22:00 04/19/24 22:00 Temperature Pulse Rate 79 80 79 Respiratory Rate 24 H 24 H Blood Pressure 110/53 L Pulse Oximetry Oxygen Delivery Fraction of Inspired Oxygen 04/19/24 22:15 04/19/24 23:19 04/19/24 23:25 Temperature Pulse Rate 80 80 82 Respiratory Rate 26 H 28 H Blood Pressure 105/51 L Pulse Oximetry 97 98 Oxygen Delivery Mechanical Ventilation Fraction of Inspired Oxygen 30 04/19/24 23:31 04/19/24 23:31 04/20/24 00:00 Temperature Pulse Rate 82 83 80 Respiratory Rate 27 H 28 H Blood Pressure 95/47 L Pulse Oximetry Oxygen Delivery Fraction of Inspired Oxygen 04/20/24 00:00 04/20/24 00:00 04/20/24 00:00 Temperature Pulse Rate 79 80 Respiratory Rate 24 H 24 H Blood Pressure Pulse Oximetry Oxygen Delivery Fraction of Inspired Oxygen 30 04/20/24 00:00 04/20/24 00:00 04/20/24 00:05 Temperature 36.6 C Pulse Rate 79 79 80 Respiratory Rate 24 H 24 H Blood Pressure 95/47 L Pulse Oximetry 97 98 Oxygen Delivery Mechanical Ventilation Fraction of Inspired Oxygen 30 04/20/24 02:00 04/20/24 02:00 04/20/24 02:00 Temperature Pulse Rate 80 80 80 Respiratory Rate 31 H 32 H Blood Pressure 101/60 Pulse Oximetry Oxygen Delivery Fraction of Inspired Oxygen 04/20/24 02:00 04/20/24 02:00 04/20/24 02:15 Temperature Pulse Rate 80 80 87 Respiratory Rate 32 H Blood Pressure 101/60 Pulse Oximetry 100 98 Oxygen Delivery Mechanical Ventilation Fraction of Inspired Oxygen 30 04/20/24 04:00 04/20/24 04:00 04/20/24 04:00 Temperature 36.7 C Pulse Rate 76 76 79 Respiratory Rate 22 H 22 H Blood Pressure 94/47 L 94/47 L Pulse Oximetry 98 Oxygen Delivery Fraction of Inspired Oxygen 04/20/24 04:00 04/20/24 04:00 04/20/24 04:00 Temperature Pulse Rate 76 77 Respiratory Rate 22 H Blood Pressure Pulse Oximetry Oxygen Delivery Fraction of Inspired Oxygen 30 04/20/24 04:15 04/20/24 04:39 04/20/24 04:50 Temperature Pulse Rate 76 76 76 Respiratory Rate 22 H 22 H Blood Pressure Pulse Oximetry 98 98 Oxygen Delivery Mechanical Ventilation Mechanical Ventilation Fraction of Inspired Oxygen 30 30 04/20/24 04:50 04/20/24 05:01 04/20/24 06:00 Temperature Pulse Rate 76 76 78 Respiratory Rate 22 H 23 H Blood Pressure Pulse Oximetry Oxygen Delivery Fraction of Inspired Oxygen 04/20/24 06:00 04/20/24 06:00 04/20/24 06:00 Temperature Pulse Rate 78 78 78 Respiratory Rate 22 H 22 H Blood Pressure 114/62 113/52 L Pulse Oximetry 95 Oxygen Delivery Fraction of Inspired Oxygen 04/20/24 06:00 04/20/24 06:40 04/20/24 06:40 Temperature Pulse Rate 78 77 77 Respiratory Rate 22 H 25 H 25 H Blood Pressure Pulse Oximetry Oxygen Delivery Fraction of Inspired Oxygen Intake/Output Intake/Output: Intake & Output 04/17/24 04/18/24 04/19/24 04/20/24 23:59 23:59 23:59 23:59 Intake Total 1895.1 4029.8 2701.4 1022.9 Output Total 1100 3100 3500 600 Balance 795.1 929.8 -798.6 422.9 Meds/Results Medications: Active Medications Generic Name Dose Route Start Last Admin Trade Name Freq PRN Reason Stop Dose Admin Acetaminophen 650 mg 04/19/24 14:17 Acetaminophen Elixir 325 Mg/10.15 Ml Udc FEED TUBE Q6H PRN Mild Pain (1-3) or Fever Acyclovir 400 mg 04/16/24 09:00 04/19/24 16:16 Acyclovir 400 Mg Tablet PO 400 mg BID KAVON Administration Albuterol/Ipratropium 3 ml 04/18/24 08:24 Ipratropium 0.5 Mg/Albuterol Sulfate 2.5 Mg Ampul.Neb 3 Ml NEBULIZE Q6HRT PRN Wheezing Amiodarone HCl 400 mg 04/19/24 13:35 04/19/24 14:24 Amiodarone Hcl 200 Mg Tablet PO 400 mg DAILY@0800 KAVON Administration Dextrose 12.5 gm 04/17/24 12:00 Dextrose 50% 25 Gm/50 Ml Syringe IV PUSH PRN PRN Hypoglycemia Protocol Furosemide 80 mg 04/20/24 12:00 Furosemide Inj 100 Mg/10 Ml Vial IV PUSH 04/20/24 12:01 ONCE ONE Glucagon 1 mg 04/17/24 12:00 Glucagon For Inj 1 Mg Vial IM PRN PRN Hypoglycemia Protocol Glucose 15 gm 04/17/24 12:00 Glucose Oral Gel 15 Gm Of Glucse In 37.5 Gm Tube PO PRN PRN Hypoglycemia Protocol Cefepime HCl 2 gm in 50 mls @ 100 mls/hr 04/16/24 08:00 04/20/24 00:00 Maxipime 2 Gm/Ns 50 Ml IVPB Infused Q8H KAVON Infusion Doxycycline Hyclate 100 mg in 100 mls @ 100 mls/hr 04/16/24 11:30 04/19/24 21:07 Vibramycin 100 Mg/Ns 100 Ml IVPB 04/21/24 11:29 Infused Q12HR KAVON Infusion Propofol 100 mls @ 14.865 mls/hr 04/17/24 09:15 04/20/24 06:00 Diprivan IV CONT 25 mcg/kg/min .Q6H44M KAVON 14.87 mls/hr Titration Protocol 25 MCG/KG/MIN Norepinephrine Bitartrate 8 mg in 250 mls @ 0 mls/hr 04/17/24 12:00 04/20/24 06:00 Levophed 8 Mg/D5w 250 Ml IV CONT 0 mcg/min .Q0M KAVON 0 mls/hr Titration Protocol 0 MCG/MIN Dextrose 1,000 mls @ 100 mls/hr 04/17/24 12:00 Dextrose 5% 1,000 Ml IVPB PRN PRN Hypoglycemia Protocol Fentanyl Citrate 2,500 mcg in 250 mls @ 10 mls/hr 04/18/24 08:25 04/20/24 06:40 Fentanyl 2,500 Mcg/Ns 250 Ml IV CONT 100 mcg/hr .Q25H KAVON 10 mls/hr Administration Protocol 100 MCG/HR Sodium Chloride 250 mls @ 30 mls/hr 04/20/24 06:30 Normal Saline Iv IV CONT 04/20/24 14:49 .Q8H20M STA Insulin Aspart 2 - 5 units 04/17/24 18:00 04/20/24 06:15 Insulin Aspart (*Bkc) 100 Units/Ml SUB-Q Not Given Q6HR [facility] Protocol Levothyroxine Sodium 75 mcg 04/17/24 06:30 04/20/24 05:49 Levothyroxine Sodium 75 Mcg Tablet PO 75 mcg DAILY@0630 KAVON Administration Metoprolol Tartrate 5 mg 04/17/24 10:27 Metoprolol Tartrate Inj 5 Mg/5 Ml Vial IV PUSH Q6H PRN Tachyarrhythmias Midazolam HCl 2 mg 04/18/24 08:23 Midazolam Hcl (*Crx) 2 Mg/2 Ml Vial IV PUSH Q5M PRN ventilator asynchrony Multi-Ingred Cream/Lotion/Oil/Oint 1 applic 04/17/24 09:00 04/19/24 20:08 Mineral Oil/White Petrolatum Ointment EACH EYE 1 applic Q12HR KAVON Administration Pantoprazole Sodium 40 mg 04/16/24 21:00 04/19/24 20:07 Pantoprazole Sodium Iv 40 Mg Vial IV PUSH 40 mg Q12H KAVON Administration Sodium Chloride 10 ml 04/17/24 07:18 Central Line Flush IV PUSH PRN PRN before/after int. infusion Sodium Chloride 10 ml 04/18/24 14:00 04/20/24 05:00 Central Line Flush IV PUSH 10 ml Q8HR KAVON Administration Sodium Chloride 10 ml 04/18/24 11:52 Central Line Flush IV PUSH PRN PRN with TPN bag changes Sodium Chloride 20 ml 04/18/24 11:52 Central Line Flush IV PUSH PRN PRN after blood draws Radiology Results: ITS Impressions Chest X-Ray 04/20/24 06:02 Impression: Small left pleural effusion with probable left lower lobe atelectasis. Minimal right pleural effusion. Stable support tubes. Labs Labs: Laboratory Results - last 24 hr 04/19/24 04/19/24 04/19/24 11:44 12:16 18:22 WBC 1.6 L* RBC 2.62 L Hgb 7.5 L Hct 22.9 L MCV 87.4 MCH 28.6 MCHC 32.8 RDW 18.2 H Plt Count 49 L MPV 11.2 H Immature Gran % (Auto) Neut % (Auto) Lymph % (Auto) [place] % (Auto) Eos % (Auto) Baso % (Auto) Lymph # (Auto) [place] # (Auto) Eos # (Auto) Baso # (Auto) Abs Immat Gran (auto) Absolute Neuts (auto) Absolute Nucleated RBC Nucleated RBC % Platelet Estimate % Immature Plt Fraction 5.6 Hypochromasia Target Cells Schistocytes Puncture Site ABG pH ABG pCO2 ABG pO2 ABG PO2/FiO2 Ratio ABG HCO3 ABG O2 Saturation ABG O2 Content ABG Base Excess A-a Gradient Oxyhemoglobin Carboxyhemoglobin Methemoglobin Reduced Hemoglobin Total Hemoglobin O2 Delivery Device O2 Liters/Min Minute Volume Vent Rate Vent Mode FiO2 Tidal Volume PEEP Peak Inspir Pressure Pressure Support Sodium Potassium Chloride Carbon Dioxide Anion Gap BUN Creatinine Estim Creat Clear Calc Estimated GFR Glucose POC Capillary Glucose 98 105 Calcium Phosphorus Magnesium Total Bilirubin AST ALT Alkaline Phosphatase Total Protein Albumin Blood Type Antibody Screen Crossmatch 04/19/24 04/20/24 04/20/24 23:22 04:25 05:46 WBC 1.6 L* RBC 2.28 L Hgb 6.6 L* Hct 20.5 L* MCV 89.9 MCH 28.9 MCHC 32.2 RDW 17.8 H Plt Count 45 L MPV TNP Immature Gran % (Auto) 1.3 H Neut % (Auto) 36.1 L Lymph % (Auto) 55.7 H [place] % (Auto) 6.3 Eos % (Auto) 0.0 Baso % (Auto) 0.6 Lymph # (Auto) 0.88 L [place] # (Auto) 0.1 Eos # (Auto) 0.0 Baso # (Auto) 0.0 Abs Immat Gran (auto) 0.02 Absolute Neuts (auto) 0.6 L Absolute Nucleated RBC 0.000 Nucleated RBC % 0.0 Platelet Estimate Decreased % Immature Plt Fraction 5.0 Hypochromasia 1+ Target Cells 1+ Schistocytes None seen Puncture Site Left radial ABG pH 7.449 ABG pCO2 34.1 L ABG pO2 89.0 ABG PO2/FiO2 Ratio 2.97 ABG HCO3 23.1 ABG O2 Saturation 97.2 ABG O2 Content 8.8 L ABG Base Excess -0.8 A-a Gradient 84.8 Oxyhemoglobin 95.3 Carboxyhemoglobin 2.0 Methemoglobin 0.2 Reduced Hemoglobin 2.5 Total Hemoglobin 6.4 L* O2 Delivery Device Ventilator O2 Liters/Min Not Reportable Minute Volume Not Reportable Vent Rate 18 Vent Mode Cmv FiO2 30 Tidal Volume 380 PEEP 5 Peak Inspir Pressure Not Reportable Pressure Support Not Reportable Sodium 130 L Potassium 4.2 Chloride 104 Carbon Dioxide 26 Anion Gap 0 L BUN 22 H Creatinine 0.60 L Estim Creat Clear Calc 125 Estimated GFR > 60 Glucose 91 POC Capillary Glucose 106 H Calcium 8.0 L Phosphorus 3.6 Magnesium 1.9 Total Bilirubin 1.0 AST 23 ALT 15 Alkaline Phosphatase 78 Total Protein 6.0 L Albumin 2.3 L Blood Type Antibody Screen Crossmatch 04/20/24 06:37 WBC RBC Hgb Hct MCV MCH MCHC RDW Plt Count MPV Immature Gran % (Auto) Neut % (Auto) Lymph % (Auto) [place] % (Auto) Eos % (Auto) Baso % (Auto) Lymph # (Auto) [place] # (Auto) Eos # (Auto) Baso # (Auto) Abs Immat Gran (auto) Absolute Neuts (auto) Absolute Nucleated RBC Nucleated RBC % Platelet Estimate % Immature Plt Fraction Hypochromasia Target Cells Schistocytes Puncture Site ABG pH ABG pCO2 ABG pO2 ABG PO2/FiO2 Ratio ABG HCO3 ABG O2 Saturation ABG O2 Content ABG Base Excess A-a Gradient Oxyhemoglobin Carboxyhemoglobin Methemoglobin Reduced Hemoglobin Total Hemoglobin O2 Delivery Device O2 Liters/Min Minute Volume Vent Rate Vent Mode FiO2 Tidal Volume PEEP Peak Inspir Pressure Pressure Support Sodium Potassium Chloride Carbon Dioxide Anion Gap BUN Creatinine Estim Creat Clear Calc Estimated GFR Glucose POC Capillary Glucose Calcium Phosphorus Magnesium Total Bilirubin AST ALT Alkaline Phosphatase Total Protein Albumin Blood Type A Positive Antibody Screen Negative Crossmatch See Detail Quality VTE Prophylaxis VTE prophylaxis: mechanical ordered
[2024-04-20] MEDS: ACYCLOVIR 400 MG TABLET PO (08:58)
[2024-04-20] MEDS: AMIODARONE HCL 200 MG TABLET 400 MG PO (08:58)
[2024-04-20] MEDS: CEFEPIME 2 GM/NS 50 ML 2 GM/50 ML BAG IVPB ×3 (08:59→23:58)
[2024-04-20] MEDS: MINERAL OIL/WHITE PETROLATUM OINTMENT 1 APPLIC EACH EYE (08:59)
[2024-04-20] MEDS: PANTOPRAZOLE SODIUM IV 40 MG VIAL IV PUSH ×2 (08:59→20:06)
[2024-04-20] MEDS: SODIUM CHLORIDE 0.9% IV 250 ML 30 ML IV CONT (09:13)
--- NOTE | 2024-04-20 09:47 | PM.IMPN ---
Progress Note: A&P Assessment and Plan (1) Acute respiratory failure: Code(s): J96.00 - Acute respiratory failure, unspecified whether with hypoxia or hypercapnia Status: Acute (2) Pneumonia: Code(s): J18.9 - Pneumonia, unspecified organism Status: Acute (3) Leukemia: Code(s): C95.90 - Leukemia, unspecified not having achieved remission Status: Acute (4) Septic shock: Code(s): A41.9 - Sepsis, unspecified organism; R65.21 - Severe sepsis with septic shock Status: Acute (5) Paroxysmal atrial fibrillation: Code(s): I48.0 - Paroxysmal atrial fibrillation Status: Acute Plan Septic shock: Code(s): A41.9 - Sepsis, unspecified organism; R65.21 - Severe sepsis with septic shock Status: Acute Assessment and Plan: Septic shock likely related to pneumonia and neutropenic fever -continue cefepime, will discontinue vancomycin since MRSA screen is negative and cultures have been negative - doxycycline for atypical coverage(04/16) for 5 days Preliminary Blood cultures negative x2 Norepinephrine was weaned off hold further IV fluids, patient fluid overloaded Acute respiratory failure: Code(s): J96.00 - Acute respiratory failure, unspecified whether with hypoxia or hypercapnia Status: Acute Assessment and Plan: Acute respiratory failure secondary to suggestive heart failure and pneumonia patient failed his weaning trial due to high RSBI increased work of breathing. ABG and chest x-ray reviewed Continue current tidal volume at 380 and rate to 18 Continue Lasix IV Heart failure with reduced ejection fraction: Code(s): I50.20 - Unspecified systolic (congestive) heart failure Status: Acute Assessment and Plan: HFrEF with EF of 30-35% -cardiomyopathy Hold Jardiance, metoprolol, Entresto, spironolactone at home because of septic shock, hypotension on vasopressors Lasix IV Pneumonia: Code(s): J18.9 - Pneumonia, unspecified organism Status: Acute Assessment and Plan: Chest x-ray showed bilateral pulmonary diffuse reticular opacities R > L Antibiotics see above Paroxysmal atrial fibrillation with rapid ventricular response: Code(s): I48.0 - Paroxysmal atrial fibrillation Status: Acute Assessment and Plan: Has a history of paroxysmal AFib, was in AFib RVR in the ER, given septic shock patient was started on amiodarone bolus and infusion switch to p.o. amiodarone by Cardiology Neutropenic fever: Code(s): D70.9 - Neutropenia, unspecified; R50.81 - Fever presenting with conditions classified elsewhere Status: Acute Assessment and Plan: Neutropenic fevers likely related to chemotherapy which was done about 3 weeks ago. Patient has not been feeling well for about a week, complained of generalized weakness low-grade fevers -continue treatment as above -s/p one dose of filgrastim -Heme-Onc consultation -neutropenic precautions Pancytopenia due to MDS Code(s): D61.818 - Other pancytopenia Status: Acute Assessment and Plan: 04/20 transfuse 1 unit PRBC monitor count Rheumatoid arthritis: Code(s): M06.9 - Rheumatoid arthritis, unspecified Status: Acute Assessment and Plan: Patient condition is critical, prognosis is a poor Continue monitor patient closely in ICU Subjective Date/time seen: 04/20/24 09:47 Interval history: Saw examined the patient ICU. Patient is signed patient on sedation with propofol. Patient still on vasopressors. Patient has low-grade fever 99.8, labs reviewed Exam Narrative: General: No obvious distress. Intubated and sedated HEENT:? Pupils equal and reactive, sclera is clear, ETT in place Neck:? Supple JVD Respiratory:? Bilateral coarse breath sound Cardiac:? Tachycardic, irregular Abdomen:? Soft, nontender, protuberant, hypoactive bowel sounds Extremities:? Bilateral lower extremity pitting edema, palpable pedal pulses Neuro:? Patient is on sedation Skin:? Bruising noted Psych:? On sedation Objective Data Vital Signs Vital Signs: Vital Signs - 24 hr 04/19/24 09:50 04/19/24 10:00 04/19/24 10:00 Temperature Pulse Rate 68 70 69 Respiratory Rate 20 24 H Blood Pressure 125/64 Pulse Oximetry 100 100 Oxygen Delivery Mechanical Ventilation Fraction of Inspired Oxygen 30 04/19/24 10:00 04/19/24 10:00 04/19/24 10:01 Temperature Pulse Rate 69 69 70 Respiratory Rate 24 H Blood Pressure 122/69 Pulse Oximetry Oxygen Delivery Fraction of Inspired Oxygen 04/19/24 10:17 04/19/24 10:55 04/19/24 11:09 Temperature Pulse Rate 70 71 73 Respiratory Rate 28 H Blood Pressure 125/64 Pulse Oximetry 99 Oxygen Delivery Mechanical Ventilation Fraction of Inspired Oxygen 30 04/19/24 11:09 04/19/24 11:18 04/19/24 12:00 Temperature 99.2 F Pulse Rate 73 75 74 Respiratory Rate 28 H 27 H Blood Pressure 130/66 108/59 L Pulse Oximetry 100 Oxygen Delivery Fraction of Inspired Oxygen 04/19/24 12:00 04/19/24 12:00 04/19/24 12:00 Temperature Pulse Rate 74 Respiratory Rate Blood Pressure 108/59 L Pulse Oximetry Oxygen Delivery Mechanical Ventilation Fraction of Inspired Oxygen 30 30 04/19/24 12:00 04/19/24 12:00 04/19/24 12:18 Temperature Pulse Rate 74 73 74 Respiratory Rate 27 H 26 H Blood Pressure Pulse Oximetry Oxygen Delivery Fraction of Inspired Oxygen 04/19/24 12:18 04/19/24 13:01 04/19/24 13:05 Temperature Pulse Rate 74 75 74 Respiratory Rate 26 H Blood Pressure 118/54 L Pulse Oximetry 100 Oxygen Delivery Mechanical Ventilation Fraction of Inspired Oxygen 30 04/19/24 14:00 04/19/24 14:00 04/19/24 14:00 Temperature Pulse Rate 77 78 78 Respiratory Rate 30 H 30 H Blood Pressure 110/52 L Pulse Oximetry Oxygen Delivery Fraction of Inspired Oxygen 04/19/24 14:00 04/19/24 14:00 04/19/24 14:24 Temperature Pulse Rate 78 78 79 Respiratory Rate 30 H Blood Pressure 110/52 L Pulse Oximetry 100 Oxygen Delivery Fraction of Inspired Oxygen 04/19/24 15:48 04/19/24 16:00 04/19/24 16:00 Temperature Pulse Rate 78 77 77 Respiratory Rate 27 H Blood Pressure 106/52 L Pulse Oximetry 99 Oxygen Delivery Mechanical Ventilation Fraction of Inspired Oxygen 30 04/19/24 16:00 04/19/24 16:00 04/19/24 16:00 Temperature Pulse Rate 77 Respiratory Rate 27 H Blood Pressure Pulse Oximetry Oxygen Delivery Mechanical Ventilation Fraction of Inspired Oxygen 30 30 04/19/24 16:00 04/19/24 16:00 04/19/24 18:00 Temperature 99.7 F H Pulse Rate 77 77 77 Respiratory Rate 28 H 26 H Blood Pressure 106/52 L 109/53 L Pulse Oximetry 99 99 Oxygen Delivery Fraction of Inspired Oxygen 04/19/24 18:00 04/19/24 18:00 04/19/24 18:00 Temperature Pulse Rate 77 77 77 Respiratory Rate 26 H 26 H Blood Pressure 109/53 L Pulse Oximetry Oxygen Delivery Fraction of Inspired Oxygen 04/19/24 18:00 04/19/24 19:00 04/19/24 19:11 Temperature Pulse Rate 77 79 78 Respiratory Rate 20 Blood Pressure 112/53 L 112/53 L Pulse Oximetry 100 Oxygen Delivery Fraction of Inspired Oxygen 04/19/24 19:15 04/19/24 19:46 04/19/24 19:50 Temperature Pulse Rate 79 79 Respiratory Rate 21 H 21 H Blood Pressure 107/53 L Pulse Oximetry 99 99 Oxygen Delivery Mechanical Ventilation Fraction of Inspired Oxygen 30 30 04/19/24 20:00 04/19/24 20:00 04/19/24 20:00 Temperature Pulse Rate 77 77 77 Respiratory Rate 25 H 25 H Blood Pressure 107/52 L Pulse Oximetry Oxygen Delivery Fraction of Inspired Oxygen 04/19/24 20:00 04/19/24 20:00 04/19/24 20:16 Temperature 97.0 F L Pulse Rate 79 77 79 Respiratory Rate 25 H 24 H Blood Pressure 107/52 L 115/55 L Pulse Oximetry 99 99 Oxygen Delivery Fraction of Inspired Oxygen 04/19/24 20:19 04/19/24 22:00 04/19/24 22:00 Temperature Pulse Rate 79 79 80 Respiratory Rate 22 H Blood Pressure 110/53 L Pulse Oximetry 98 97 Oxygen Delivery Mechanical Ventilation Fraction of Inspired Oxygen 30 04/19/24 22:00 04/19/24 22:00 04/19/24 22:00 Temperature Pulse Rate 79 80 79 Respiratory Rate 24 H 24 H Blood Pressure 110/53 L Pulse Oximetry Oxygen Delivery Fraction of Inspired Oxygen 04/19/24 22:15 04/19/24 23:19 04/19/24 23:25 Temperature Pulse Rate 80 80 82 Respiratory Rate 26 H 28 H Blood Pressure 105/51 L Pulse Oximetry 97 98 Oxygen Delivery Mechanical Ventilation Fraction of Inspired Oxygen 30 04/19/24 23:31 04/19/24 23:31 04/20/24 00:00 Temperature Pulse Rate 82 83 80 Respiratory Rate 27 H 28 H Blood Pressure 95/47 L Pulse Oximetry Oxygen Delivery Fraction of Inspired Oxygen 04/20/24 00:00 04/20/24 00:00 04/20/24 00:00 Temperature Pulse Rate 79 80 Respiratory Rate 24 H 24 H Blood Pressure Pulse Oximetry Oxygen Delivery Fraction of Inspired Oxygen 30 04/20/24 00:00 04/20/24 00:00 04/20/24 00:05 Temperature 98 F Pulse Rate 79 79 80 Respiratory Rate 24 H 24 H Blood Pressure 95/47 L Pulse Oximetry 97 98 Oxygen Delivery Mechanical Ventilation Fraction of Inspired Oxygen 30 04/20/24 02:00 04/20/24 02:00 04/20/24 02:00 Temperature Pulse Rate 80 80 80 Respiratory Rate 31 H 32 H Blood Pressure 101/60 Pulse Oximetry Oxygen Delivery Fraction of Inspired Oxygen 04/20/24 02:00 04/20/24 02:00 04/20/24 02:15 Temperature Pulse Rate 80 80 87 Respiratory Rate 32 H Blood Pressure 101/60 Pulse Oximetry 100 98 Oxygen Delivery Mechanical Ventilation Fraction of Inspired Oxygen 30 04/20/24 04:00 04/20/24 04:00 04/20/24 04:00 Temperature 98.1 F Pulse Rate 76 76 79 Respiratory Rate 22 H 22 H Blood Pressure 94/47 L 94/47 L Pulse Oximetry 98 Oxygen Delivery Fraction of Inspired Oxygen 04/20/24 04:00 04/20/24 04:00 04/20/24 04:00 Temperature Pulse Rate 76 77 Respiratory Rate 22 H Blood Pressure Pulse Oximetry Oxygen Delivery Fraction of Inspired Oxygen 30 04/20/24 04:15 04/20/24 04:39 04/20/24 04:50 Temperature Pulse Rate 76 76 76 Respiratory Rate 22 H 22 H Blood Pressure Pulse Oximetry 98 98 Oxygen Delivery Mechanical Ventilation Mechanical Ventilation Fraction of Inspired Oxygen 30 30 04/20/24 04:50 04/20/24 05:01 04/20/24 06:00 Temperature Pulse Rate 76 76 78 Respiratory Rate 22 H 23 H Blood Pressure Pulse Oximetry Oxygen Delivery Fraction of Inspired Oxygen 04/20/24 06:00 04/20/24 06:00 04/20/24 06:00 Temperature Pulse Rate 78 78 78 Respiratory Rate 22 H 22 H Blood Pressure 114/62 113/52 L Pulse Oximetry 95 Oxygen Delivery Fraction of Inspired Oxygen 04/20/24 06:00 04/20/24 06:40 04/20/24 06:40 Temperature Pulse Rate 78 77 77 Respiratory Rate 22 H 25 H 25 H Blood Pressure Pulse Oximetry Oxygen Delivery Fraction of Inspired Oxygen 04/20/24 08:58 04/20/24 09:08 04/20/24 09:12 Temperature 99.0 F Pulse Rate 81 80 81 Respiratory Rate 23 H Blood Pressure 104/46 L Pulse Oximetry 97 99 Oxygen Delivery Mechanical Ventilation Fraction of Inspired Oxygen 30 04/20/24 09:28 Temperature 99.8 F H Pulse Rate 81 Respiratory Rate 27 H Blood Pressure 106/52 L Pulse Oximetry 100 Oxygen Delivery Fraction of Inspired Oxygen Intake/Output Intake/Output: Intake & Output 04/17/24 04/18/24 04/19/24 04/20/24 23:59 23:59 23:59 23:59 Intake Total 1895.1 4029.8 2701.4 1022.9 Output Total 1100 3100 3500 600 Balance 795.1 929.8 -798.6 422.9 Meds/Results Medications: Active Medications Generic Name Dose Route Start Last Admin Trade Name Freq PRN Reason Stop Dose Admin Acetaminophen 650 mg 04/19/24 14:17 Acetaminophen Elixir 325 Mg/10.15 Ml Udc FEED TUBE Q6H PRN Mild Pain (1-3) or Fever Acyclovir 400 mg 04/16/24 09:00 04/20/24 08:58 Acyclovir 400 Mg Tablet PO 400 mg BID KAVON Administration Albuterol/Ipratropium 3 ml 04/18/24 08:24 Ipratropium 0.5 Mg/Albuterol Sulfate 2.5 Mg Ampul.Neb 3 Ml NEBULIZE Q6HRT PRN Wheezing Amiodarone HCl 400 mg 04/19/24 13:35 04/20/24 08:58 Amiodarone Hcl 200 Mg Tablet PO 400 mg DAILY@0800 KAVON Administration Dextrose 12.5 gm 04/17/24 12:00 Dextrose 50% 25 Gm/50 Ml Syringe IV PUSH PRN PRN Hypoglycemia Protocol Furosemide 80 mg 04/20/24 12:00 Furosemide Inj 100 Mg/10 Ml Vial IV PUSH 04/20/24 12:01 ONCE ONE Glucagon 1 mg 04/17/24 12:00 Glucagon For Inj 1 Mg Vial IM PRN PRN Hypoglycemia Protocol Glucose 15 gm 04/17/24 12:00 Glucose Oral Gel 15 Gm Of Glucse In 37.5 Gm Tube PO PRN PRN Hypoglycemia Protocol Cefepime HCl 2 gm in 50 mls @ 100 mls/hr 04/16/24 08:00 04/20/24 08:59 Maxipime 2 Gm/Ns 50 Ml IVPB 100 mls/hr Q8H KAVON Administration Doxycycline Hyclate 100 mg in 100 mls @ 100 mls/hr 04/16/24 11:30 04/19/24 21:07 Vibramycin 100 Mg/Ns 100 Ml IVPB 04/21/24 11:29 Infused Q12HR KAVON Infusion Propofol 100 mls @ 14.865 mls/hr 04/17/24 09:15 04/20/24 06:00 Diprivan IV CONT 25 mcg/kg/min .Q6H44M KAVON 14.87 mls/hr Titration Protocol 25 MCG/KG/MIN Norepinephrine Bitartrate 8 mg in 250 mls @ 0 mls/hr 04/17/24 12:00 04/20/24 06:00 Levophed 8 Mg/D5w 250 Ml IV CONT 0 mcg/min .Q0M KAVON 0 mls/hr Titration Protocol 0 MCG/MIN Dextrose 1,000 mls @ 100 mls/hr 04/17/24 12:00 Dextrose 5% 1,000 Ml IVPB PRN PRN Hypoglycemia Protocol Fentanyl Citrate 2,500 mcg in 250 mls @ 10 mls/hr 04/18/24 08:25 04/20/24 06:40 Fentanyl 2,500 Mcg/Ns 250 Ml IV CONT 100 mcg/hr .Q25H KAVON 10 mls/hr Administration Protocol 100 MCG/HR Sodium Chloride 250 mls @ 30 mls/hr 04/20/24 06:30 Normal Saline Iv IV CONT 04/20/24 14:49 .Q8H20M STA Insulin Aspart 2 - 5 units 04/17/24 18:00 04/20/24 06:15 Insulin Aspart (*Bkc) 100 Units/Ml SUB-Q Not Given Q6HR [facility] Protocol Levothyroxine Sodium 75 mcg 04/17/24 06:30 04/20/24 05:49 Levothyroxine Sodium 75 Mcg Tablet PO 75 mcg DAILY@0630 [facility] [place] Administration Metoprolol Tartrate 5 mg 04/17/24 10:27 Metoprolol Tartrate Inj 5 Mg/5 Ml Vial IV PUSH Q6H PRN Tachyarrhythmias Midazolam HCl 2 mg 04/18/24 08:23 Midazolam Hcl (*Crx) 2 Mg/2 Ml Vial IV PUSH Q5M PRN ventilator asynchrony Multi-Ingred Cream/Lotion/Oil/Oint 1 applic 04/17/24 09:00 04/20/24 08:59 Mineral Oil/White Petrolatum Ointment EACH EYE 1 applic Q12HR KAVON Administration Pantoprazole Sodium 40 mg 04/16/24 21:00 04/20/24 08:59 Pantoprazole Sodium Iv 40 Mg Vial IV PUSH 40 mg Q12H KAVON Administration Sodium Chloride 10 ml 04/17/24 07:18 Central Line Flush IV PUSH PRN PRN before/after int. infusion Sodium Chloride 10 ml 04/18/24 14:00 04/20/24 05:00 Central Line Flush IV PUSH 10 ml Q8HR KAVON Administration Sodium Chloride 10 ml 04/18/24 11:52 Central Line Flush IV PUSH PRN PRN with TPN bag changes Sodium Chloride 20 ml 04/18/24 11:52 Central Line Flush IV PUSH PRN PRN after blood draws Radiology Results: ITS Impressions Chest X-Ray 04/20/24 06:02 Impression: Small left pleural effusion with probable left lower lobe atelectasis. Minimal right pleural effusion. Stable support tubes. Labs Labs: Laboratory Results - last 24 hr 04/19/24 04/19/24 04/19/24 11:44 12:16 18:22 WBC 1.6 L* RBC 2.62 L Hgb 7.5 L Hct 22.9 L MCV 87.4 MCH 28.6 MCHC 32.8 RDW 18.2 H Plt Count 49 L MPV 11.2 H Immature Gran % (Auto) Neut % (Auto) Lymph % (Auto) Sunflower % (Auto) Eos % (Auto) Baso % (Auto) Lymph # (Auto) Sunflower # (Auto) Eos # (Auto) Baso # (Auto) Abs Immat Gran (auto) Absolute Neuts (auto) Absolute Nucleated RBC Nucleated RBC % Platelet Estimate % Immature Plt Fraction 5.6 Hypochromasia Target Cells Schistocytes Puncture Site ABG pH ABG pCO2 ABG pO2 ABG PO2/FiO2 Ratio ABG HCO3 ABG O2 Saturation ABG O2 Content ABG Base Excess A-a Gradient Oxyhemoglobin Carboxyhemoglobin Methemoglobin Reduced Hemoglobin Total Hemoglobin O2 Delivery Device O2 Liters/Min Minute Volume Vent Rate Vent Mode FiO2 Tidal Volume PEEP Peak Inspir Pressure Pressure Support Sodium Potassium Chloride Carbon Dioxide Anion Gap BUN Creatinine Estim Creat Clear Calc Estimated GFR Glucose POC Capillary Glucose 98 105 Calcium Phosphorus Magnesium Total Bilirubin AST ALT Alkaline Phosphatase Total Protein Albumin Blood Type Antibody Screen Crossmatch 04/19/24 04/20/24 04/20/24 23:22 04:25 05:46 WBC 1.6 L* RBC 2.28 L Hgb 6.6 L* Hct 20.5 L* MCV 89.9 MCH 28.9 MCHC 32.2 RDW 17.8 H Plt Count 45 L MPV TNP Immature Gran % (Auto) 1.3 H Neut % (Auto) 36.1 L Lymph % (Auto) 55.7 H Sunflower % (Auto) 6.3 Eos % (Auto) 0.0 Baso % (Auto) 0.6 Lymph # (Auto) 0.88 L Sunflower # (Auto) 0.1 Eos # (Auto) 0.0 Baso # (Auto) 0.0 Abs Immat Gran (auto) 0.02 Absolute Neuts (auto) 0.6 L Absolute Nucleated RBC 0.000 Nucleated RBC % 0.0 Platelet Estimate Decreased % Immature Plt Fraction 5.0 Hypochromasia 1+ Target Cells 1+ Schistocytes None seen Puncture Site Left radial ABG pH 7.449 ABG pCO2 34.1 L ABG pO2 89.0 ABG PO2/FiO2 Ratio 2.97 ABG HCO3 23.1 ABG O2 Saturation 97.2 ABG O2 Content 8.8 L ABG Base Excess -0.8 A-a Gradient 84.8 Oxyhemoglobin 95.3 Carboxyhemoglobin 2.0 Methemoglobin 0.2 Reduced Hemoglobin 2.5 Total Hemoglobin 6.4 L* O2 Delivery Device Ventilator O2 Liters/Min Not Reportable Minute Volume Not Reportable Vent Rate 18 Vent Mode Cmv FiO2 30 Tidal Volume 380 PEEP 5 Peak Inspir Pressure Not Reportable Pressure Support Not Reportable Sodium 130 L Potassium 4.2 Chloride 104 Carbon Dioxide 26 Anion Gap 0 L BUN 22 H Creatinine 0.60 L Estim Creat Clear Calc 125 Estimated GFR > 60 Glucose 91 POC Capillary Glucose 106 H Calcium 8.0 L Phosphorus 3.6 Magnesium 1.9 Total Bilirubin 1.0 AST 23 ALT 15 Alkaline Phosphatase 78 Total Protein 6.0 L Albumin 2.3 L Blood Type Antibody Screen Crossmatch 04/20/24 06:37 WBC RBC Hgb Hct MCV MCH MCHC RDW Plt Count MPV Immature Gran % (Auto) Neut % (Auto) Lymph % (Auto) Sunflower % (Auto) Eos % (Auto) Baso % (Auto) Lymph # (Auto) Sunflower # (Auto) Eos # (Auto) Baso # (Auto) Abs Immat Gran (auto) Absolute Neuts (auto) Absolute Nucleated RBC Nucleated RBC % Platelet Estimate % Immature Plt Fraction Hypochromasia Target Cells Schistocytes Puncture Site ABG pH ABG pCO2 ABG pO2 ABG PO2/FiO2 Ratio ABG HCO3 ABG O2 Saturation ABG O2 Content ABG Base Excess A-a Gradient Oxyhemoglobin Carboxyhemoglobin Methemoglobin Reduced Hemoglobin Total Hemoglobin O2 Delivery Device O2 Liters/Min Minute Volume Vent Rate Vent Mode FiO2 Tidal Volume PEEP Peak Inspir Pressure Pressure Support Sodium Potassium Chloride Carbon Dioxide Anion Gap BUN Creatinine Estim Creat Clear Calc Estimated GFR Glucose POC Capillary Glucose Calcium Phosphorus Magnesium Total Bilirubin AST ALT Alkaline Phosphatase Total Protein Albumin Blood Type A Positive Antibody Screen Negative Crossmatch See Detail
[2024-04-20] MEDS: DOXYCYCLINE 100 MG/NS 100 ML 100 MG/100 ML BAG IVPB ×2 (09:49→20:06)
--- NOTE | 2024-04-20 09:56 | PM.PNCARD ---
Progress Note: A&P Assessment and Plan (1) Atrial fibrillation with rapid ventricular response: Code(s): I48.91 - Unspecified atrial fibrillation Status: Acute (2) Septic shock: Code(s): A41.9 - Sepsis, unspecified organism; R65.21 - Severe sepsis with septic shock Status: Acute (3) Heart failure with reduced ejection fraction: Code(s): I50.20 - Unspecified systolic (congestive) heart failure Status: Acute Plan 63-year-old man with HFrEF (30-35%), paroxysmal atrial fibrillation, and myelodysplastic syndrome who presented with fevers, shortness of breath, and weakness admitted for septic shock in setting of neutropenia/pancytopenia now found to have paroxysmal atrial fibrillation with RVR Paroxysmal atrial fibrillation with RVR -continue Amiodarone 400mg PO daily to maintain sinus rhythm. Not able to use beta blockers at this time as he still remains on Levophed. -[id number] VASC score 1 and no strong indication for anticoagulation at this time; although he will turn 64 in a few weeks and there would be stronger indication for anticoagulation at that time. Given his thrombocytopenia, clinically his risk of bleeding exceeds his risk of embolic stroke Septic shock -Remains on Levophed for pressor support. HFrEF -Continue with IV Lasix to aid in possible extubation. Please monitor strict I/Os. -Not able to start heart failure GDMT at this time due to pressor requirement. Myelodysplastic syndrome: -Has a poor prognosis according to Oncology; supportive and comfort care has been recommended. Subjective Date/time seen: 04/20/24 09:56 Interval history: Is currently intubated and sedated. He had SBT yesterday Review of Systems Review of Systems: ROS unobtainable: Yes unobtainable due to endotracheal tube Exam Const: Other: Intubated and sedated Resp: Auscultation: rales Cardio: Rate: regular rate Rhythm: regular rhythm GI: GI Palp: Yes Soft to palpation Extrem: Other: There is mild degree of anasarca Objective Data Vital Signs Vital Signs: Vital Signs - 24 hr 04/19/24 10:00 04/19/24 10:00 04/19/24 10:00 Temperature Pulse Rate 70 69 69 Respiratory Rate 20 24 H 24 H Blood Pressure 125/64 Pulse Oximetry 100 Oxygen Delivery Fraction of Inspired Oxygen 04/19/24 10:00 04/19/24 10:01 04/19/24 10:17 Temperature Pulse Rate 69 70 70 Respiratory Rate Blood Pressure 122/69 125/64 Pulse Oximetry Oxygen Delivery Fraction of Inspired Oxygen 04/19/24 10:55 04/19/24 11:09 04/19/24 11:09 Temperature Pulse Rate 71 73 73 Respiratory Rate 28 H 28 H Blood Pressure Pulse Oximetry 99 Oxygen Delivery Mechanical Ventilation Fraction of Inspired Oxygen 30 04/19/24 11:18 04/19/24 12:00 04/19/24 12:00 Temperature 37.3 C Pulse Rate 75 74 Respiratory Rate 27 H Blood Pressure 130/66 108/59 L Pulse Oximetry 100 Oxygen Delivery Mechanical Ventilation Fraction of Inspired Oxygen 30 04/19/24 12:00 04/19/24 12:00 04/19/24 12:00 Temperature Pulse Rate 74 74 Respiratory Rate 27 H Blood Pressure 108/59 L Pulse Oximetry Oxygen Delivery Fraction of Inspired Oxygen 30 04/19/24 12:00 04/19/24 12:18 04/19/24 12:18 Temperature Pulse Rate 73 74 74 Respiratory Rate 26 H 26 H Blood Pressure Pulse Oximetry Oxygen Delivery Fraction of Inspired Oxygen 04/19/24 13:01 04/19/24 13:05 04/19/24 14:00 Temperature Pulse Rate 75 74 77 Respiratory Rate Blood Pressure 118/54 L 110/52 L Pulse Oximetry 100 Oxygen Delivery Mechanical Ventilation Fraction of Inspired Oxygen 30 04/19/24 14:00 04/19/24 14:00 04/19/24 14:00 Temperature Pulse Rate 78 78 78 Respiratory Rate 30 H 30 H 30 H Blood Pressure 110/52 L Pulse Oximetry 100 Oxygen Delivery Fraction of Inspired Oxygen 04/19/24 14:00 04/19/24 14:24 04/19/24 15:48 Temperature Pulse Rate 78 79 78 Respiratory Rate Blood Pressure Pulse Oximetry 99 Oxygen Delivery Mechanical Ventilation Fraction of Inspired Oxygen 30 04/19/24 16:00 04/19/24 16:00 04/19/24 16:00 Temperature Pulse Rate 77 77 77 Respiratory Rate 27 H 27 H Blood Pressure 106/52 L Pulse Oximetry Oxygen Delivery Fraction of Inspired Oxygen 04/19/24 16:00 04/19/24 16:00 04/19/24 16:00 Temperature Pulse Rate 77 Respiratory Rate Blood Pressure Pulse Oximetry Oxygen Delivery Mechanical Ventilation Fraction of Inspired Oxygen 30 30 12/18/24 16:00 04/19/24 18:00 04/19/24 18:00 Temperature 37.6 C H Pulse Rate 77 77 77 Respiratory Rate 28 H 26 H Blood Pressure 106/52 L 109/53 L 109/53 L Pulse Oximetry 99 99 Oxygen Delivery Fraction of Inspired Oxygen 04/19/24 18:00 04/19/24 18:00 04/19/24 18:00 Temperature Pulse Rate 77 77 77 Respiratory Rate 26 H 26 H Blood Pressure Pulse Oximetry Oxygen Delivery Fraction of Inspired Oxygen 04/19/24 19:00 04/19/24 19:11 04/19/24 19:15 Temperature Pulse Rate 79 78 79 Respiratory Rate 20 21 H Blood Pressure 112/53 L 112/53 L 107/53 L Pulse Oximetry 100 99 Oxygen Delivery Fraction of Inspired Oxygen 04/19/24 19:46 04/19/24 19:50 04/19/24 20:00 Temperature Pulse Rate 79 77 Respiratory Rate 21 H Blood Pressure 107/52 L Pulse Oximetry 99 Oxygen Delivery Mechanical Ventilation Fraction of Inspired Oxygen 30 30 04/19/24 20:00 04/19/24 20:00 04/19/24 20:00 Temperature 36.1 C L Pulse Rate 77 77 79 Respiratory Rate 25 H 25 H 25 H Blood Pressure 107/52 L Pulse Oximetry 99 Oxygen Delivery Fraction of Inspired Oxygen 04/19/24 20:00 04/19/24 20:16 04/19/24 20:19 Temperature Pulse Rate 77 79 79 Respiratory Rate 24 H Blood Pressure 115/55 L Pulse Oximetry 99 98 Oxygen Delivery Mechanical Ventilation Fraction of Inspired Oxygen 30 04/19/24 22:00 04/19/24 22:00 04/19/24 22:00 Temperature Pulse Rate 79 80 79 Respiratory Rate 22 H Blood Pressure 110/53 L 110/53 L Pulse Oximetry 97 Oxygen Delivery Fraction of Inspired Oxygen 04/19/24 22:00 04/19/24 22:00 04/19/24 22:15 Temperature Pulse Rate 80 79 80 Respiratory Rate 24 H 24 H 26 H Blood Pressure 105/51 L Pulse Oximetry 97 Oxygen Delivery Fraction of Inspired Oxygen 04/19/24 23:19 04/19/24 23:25 04/19/24 23:31 Temperature Pulse Rate 80 82 82 Respiratory Rate 28 H 27 H Blood Pressure Pulse Oximetry 98 Oxygen Delivery Mechanical Ventilation Fraction of Inspired Oxygen 30 04/19/24 23:31 04/20/24 00:00 04/20/24 00:00 Temperature Pulse Rate 83 80 79 Respiratory Rate 28 H 24 H Blood Pressure 95/47 L Pulse Oximetry Oxygen Delivery Fraction of Inspired Oxygen 04/20/24 00:00 04/20/24 00:00 04/20/24 00:00 Temperature 36.6 C Pulse Rate 80 79 Respiratory Rate 24 H 24 H Blood Pressure 95/47 L Pulse Oximetry 97 Oxygen Delivery Fraction of Inspired Oxygen 30 04/20/24 00:00 04/20/24 00:05 04/20/24 02:00 Temperature Pulse Rate 79 80 80 Respiratory Rate 24 H Blood Pressure 101/60 Pulse Oximetry 98 Oxygen Delivery Mechanical Ventilation Fraction of Inspired Oxygen 30 04/20/24 02:00 04/20/24 02:00 04/20/24 02:00 Temperature Pulse Rate 80 80 80 Respiratory Rate 31 H 32 H Blood Pressure Pulse Oximetry Oxygen Delivery Fraction of Inspired Oxygen 04/20/24 02:00 04/20/24 02:15 04/20/24 04:00 Temperature 36.7 C Pulse Rate 80 87 76 Respiratory Rate 32 H 22 H Blood Pressure 101/60 94/47 L Pulse Oximetry 100 98 98 Oxygen Delivery Mechanical Ventilation Fraction of Inspired Oxygen 30 04/20/24 04:00 04/20/24 04:00 04/20/24 04:00 Temperature Pulse Rate 76 79 76 Respiratory Rate 22 H 22 H Blood Pressure 94/47 L Pulse Oximetry Oxygen Delivery Fraction of Inspired Oxygen 04/20/24 04:00 04/20/24 04:00 04/20/24 04:15 Temperature Pulse Rate 77 76 Respiratory Rate 22 H Blood Pressure Pulse Oximetry 98 Oxygen Delivery Mechanical Ventilation Fraction of Inspired Oxygen 30 30 04/20/24 04:39 04/20/24 04:50 04/20/24 04:50 Temperature Pulse Rate 76 76 76 Respiratory Rate 22 H 22 H Blood Pressure Pulse Oximetry 98 Oxygen Delivery Mechanical Ventilation Fraction of Inspired Oxygen 30 04/20/24 05:01 04/20/24 06:00 04/20/24 06:00 Temperature Pulse Rate 76 78 78 Respiratory Rate 23 H 22 H Blood Pressure 114/62 Pulse Oximetry 95 Oxygen Delivery Fraction of Inspired Oxygen 04/20/24 06:00 04/20/24 06:00 04/20/24 06:00 Temperature Pulse Rate 78 78 78 Respiratory Rate 22 H 22 H Blood Pressure 113/52 L Pulse Oximetry Oxygen Delivery Fraction of Inspired Oxygen 04/20/24 06:40 04/20/24 06:40 04/20/24 08:58 Temperature Pulse Rate 77 77 81 Respiratory Rate 25 H 25 H Blood Pressure Pulse Oximetry Oxygen Delivery Fraction of Inspired Oxygen 04/20/24 09:08 04/20/24 09:12 04/20/24 09:28 Temperature 37.2 C 37.7 C H Pulse Rate 80 81 81 Respiratory Rate 23 H 27 H Blood Pressure 104/46 L 106/52 L Pulse Oximetry 97 99 100 Oxygen Delivery Mechanical Ventilation Fraction of Inspired Oxygen 30 Intake/Output Intake/Output: Intake & Output 04/17/24 04/18/24 04/19/24 04/20/24 23:59 23:59 23:59 23:59 Intake Total 1895.1 4029.8 2701.4 1072.9 Output Total 1100 3100 3500 600 Balance 795.1 929.8 -798.6 472.9 Meds/Results Medications: Active Medications Generic Name Dose Route Start Last Admin Trade Name Freq PRN Reason Stop Dose Admin Acetaminophen 650 mg 04/19/24 14:17 Acetaminophen Elixir 325 Mg/10.15 Ml Udc FEED TUBE Q6H PRN Mild Pain (1-3) or Fever Acyclovir 400 mg 04/16/24 09:00 04/20/24 08:58 Acyclovir 400 Mg Tablet PO 400 mg BID KAVON Administration Albuterol/Ipratropium 3 ml 04/18/24 08:24 Ipratropium 0.5 Mg/Albuterol Sulfate 2.5 Mg Ampul.Neb 3 Ml NEBULIZE Q6HRT PRN Wheezing Amiodarone HCl 400 mg 04/19/24 13:35 04/20/24 08:58 Amiodarone Hcl 200 Mg Tablet PO 400 mg DAILY@0800 KAVON Administration Dextrose 12.5 gm 04/17/24 12:00 Dextrose 50% 25 Gm/50 Ml Syringe IV PUSH PRN PRN Hypoglycemia Protocol Furosemide 80 mg 04/20/24 12:00 Furosemide Inj 100 Mg/10 Ml Vial IV PUSH 04/20/24 12:01 ONCE ONE Glucagon 1 mg 04/17/24 12:00 Glucagon For Inj 1 Mg Vial IM PRN PRN Hypoglycemia Protocol Glucose 15 gm 04/17/24 12:00 Glucose Oral Gel 15 Gm Of Glucse In 37.5 Gm Tube PO PRN PRN Hypoglycemia Protocol Cefepime HCl 2 gm in 50 mls @ 100 mls/hr 04/16/24 08:00 04/20/24 09:29 Maxipime 2 Gm/Ns 50 Ml IVPB Infused Q8H KAVON Infusion Doxycycline Hyclate 100 mg in 100 mls @ 100 mls/hr 04/16/24 11:30 04/20/24 09:49 Vibramycin 100 Mg/Ns 100 Ml IVPB 04/21/24 11:29 100 mls/hr Q12HR KAVON Administration Propofol 100 mls @ 14.865 mls/hr 04/17/24 09:15 04/20/24 06:00 Diprivan IV CONT 25 mcg/kg/min .Q6H44M KAVON 14.87 mls/hr Titration Protocol 25 MCG/KG/MIN Norepinephrine Bitartrate 8 mg in 250 mls @ 0 mls/hr 04/17/24 12:00 04/20/24 06:00 Levophed 8 Mg/D5w 250 Ml IV CONT 0 mcg/min .Q0M KAVON 0 mls/hr Titration Protocol 0 MCG/MIN Dextrose 1,000 mls @ 100 mls/hr 04/17/24 12:00 Dextrose 5% 1,000 Ml IVPB PRN PRN Hypoglycemia Protocol Fentanyl Citrate 2,500 mcg in 250 mls @ 10 mls/hr 04/18/24 08:25 04/20/24 06:40 Fentanyl 2,500 Mcg/Ns 250 Ml IV CONT 100 mcg/hr .Q25H KAVON 10 mls/hr Administration Protocol 100 MCG/HR Sodium Chloride 250 mls @ 30 mls/hr 04/20/24 06:30 Normal Saline Iv IV CONT 04/20/24 14:49 .Q8H20M STA Insulin Aspart 2 - 5 units 04/17/24 18:00 04/20/24 06:15 Insulin Aspart (*Bkc) 100 Units/Ml SUB-Q Not Given Q6HR KAVON Protocol Levothyroxine Sodium 75 mcg 04/17/24 06:30 04/20/24 05:49 Levothyroxine Sodium 75 Mcg Tablet PO 75 mcg DAILY@0630 KAVON Administration Metoprolol Tartrate 5 mg 04/17/24 10:27 Metoprolol Tartrate Inj 5 Mg/5 Ml Vial IV PUSH Q6H PRN Tachyarrhythmias Midazolam HCl 2 mg 04/18/24 08:23 Midazolam Hcl (*Crx) 2 Mg/2 Ml Vial IV PUSH Q5M PRN ventilator asynchrony Multi-Ingred Cream/Lotion/Oil/Oint 1 applic 04/17/24 09:00 04/20/24 08:59 Mineral Oil/White Petrolatum Ointment EACH EYE 1 applic Q12HR KAVON Administration Pantoprazole Sodium 40 mg 04/16/24 21:00 04/20/24 08:59 Pantoprazole Sodium Iv 40 Mg Vial IV PUSH 40 mg Q12H KAVON Administration Sodium Chloride 10 ml 04/17/24 07:18 Central Line Flush IV PUSH PRN PRN before/after int. infusion Sodium Chloride 10 ml 04/18/24 14:00 04/20/24 05:00 Central Line Flush IV PUSH 10 ml Q8HR KAVON Administration Sodium Chloride 10 ml 04/18/24 11:52 Central Line Flush IV PUSH PRN PRN with TPN bag changes Sodium Chloride 20 ml 04/18/24 11:52 Central Line Flush IV PUSH PRN PRN after blood draws Radiology Results: ITS Impressions Chest X-Ray 04/20/24 06:02 Impression: Small left pleural effusion with probable left lower lobe atelectasis. Minimal right pleural effusion. Stable support tubes. Labs Labs: Laboratory Results - last 24 hr 04/19/24 04/19/24 04/19/24 11:44 12:16 18:22 WBC 1.6 L* RBC 2.62 L Hgb 7.5 L Hct 22.9 L MCV 87.4 MCH 28.6 MCHC 32.8 RDW 18.2 H Plt Count 49 L MPV 11.2 H Immature Gran % (Auto) Neut % (Auto) Lymph % (Auto) [place] % (Auto) Eos % (Auto) Baso % (Auto) Lymph # (Auto) [place] # (Auto) Eos # (Auto) Baso # (Auto) Abs Immat Gran (auto) Absolute Neuts (auto) Absolute Nucleated RBC Nucleated RBC % Platelet Estimate % Immature Plt Fraction 5.6 Hypochromasia Target Cells Schistocytes Puncture Site ABG pH ABG pCO2 ABG pO2 ABG PO2/FiO2 Ratio ABG HCO3 ABG O2 Saturation ABG O2 Content ABG Base Excess A-a Gradient Oxyhemoglobin Carboxyhemoglobin Methemoglobin Reduced Hemoglobin Total Hemoglobin O2 Delivery Device O2 Liters/Min Minute Volume Vent Rate Vent Mode FiO2 Tidal Volume PEEP Peak Inspir Pressure Pressure Support Sodium Potassium Chloride Carbon Dioxide Anion Gap BUN Creatinine Estim Creat Clear Calc Estimated GFR Glucose POC Capillary Glucose 98 105 Calcium Phosphorus Magnesium Total Bilirubin AST ALT Alkaline Phosphatase Total Protein Albumin Blood Type Antibody Screen Crossmatch 04/19/24 04/20/24 04/20/24 23:22 04:25 05:46 WBC 1.6 L* RBC 2.28 L Hgb 6.6 L* Hct 20.5 L* MCV 89.9 MCH 28.9 MCHC 32.2 RDW 17.8 H Plt Count 45 L MPV TNP Immature Gran % (Auto) 1.3 H Neut % (Auto) 36.1 L Lymph % (Auto) 55.7 H [place] % (Auto) 6.3 Eos % (Auto) 0.0 Baso % (Auto) 0.6 Lymph # (Auto) 0.88 L [place] # (Auto) 0.1 Eos # (Auto) 0.0 Baso # (Auto) 0.0 Abs Immat Gran (auto) 0.02 Absolute Neuts (auto) 0.6 L Absolute Nucleated RBC 0.000 Nucleated RBC % 0.0 Platelet Estimate Decreased % Immature Plt Fraction 5.0 Hypochromasia 1+ Target Cells 1+ Schistocytes None seen Puncture Site Left radial ABG pH 7.449 ABG pCO2 34.1 L ABG pO2 89.0 ABG PO2/FiO2 Ratio 2.97 ABG HCO3 23.1 ABG O2 Saturation 97.2 ABG O2 Content 8.8 L ABG Base Excess -0.8 A-a Gradient 84.8 Oxyhemoglobin 95.3 Carboxyhemoglobin 2.0 Methemoglobin 0.2 Reduced Hemoglobin 2.5 Total Hemoglobin 6.4 L* O2 Delivery Device Ventilator O2 Liters/Min Not Reportable Minute Volume Not Reportable Vent Rate 18 Vent Mode Cmv FiO2 30 Tidal Volume 380 PEEP 5 Peak Inspir Pressure Not Reportable Pressure Support Not Reportable Sodium 130 L Potassium 4.2 Chloride 104 Carbon Dioxide 26 Anion Gap 0 L BUN 22 H Creatinine 0.60 L Estim Creat Clear Calc 125 Estimated GFR > 60 Glucose 91 POC Capillary Glucose 106 H Calcium 8.0 L Phosphorus 3.6 Magnesium 1.9 Total Bilirubin 1.0 AST 23 ALT 15 Alkaline Phosphatase 78 Total Protein 6.0 L Albumin 2.3 L Blood Type Antibody Screen Crossmatch 04/20/24 06:37 WBC RBC Hgb Hct MCV MCH MCHC RDW Plt Count MPV Immature Gran % (Auto) Neut % (Auto) Lymph % (Auto) [place] % (Auto) Eos % (Auto) Baso % (Auto) Lymph # (Auto) [place] # (Auto) Eos # (Auto) Baso # (Auto) Abs Immat Gran (auto) Absolute Neuts (auto) Absolute Nucleated RBC Nucleated RBC % Platelet Estimate % Immature Plt Fraction Hypochromasia Target Cells Schistocytes Puncture Site ABG pH ABG pCO2 ABG pO2 ABG PO2/FiO2 Ratio ABG HCO3 ABG O2 Saturation ABG O2 Content ABG Base Excess A-a Gradient Oxyhemoglobin Carboxyhemoglobin Methemoglobin Reduced Hemoglobin Total Hemoglobin O2 Delivery Device O2 Liters/Min Minute Volume Vent Rate Vent Mode FiO2 Tidal Volume PEEP Peak Inspir Pressure Pressure Support Sodium Potassium Chloride Carbon Dioxide Anion Gap BUN Creatinine Estim Creat Clear Calc Estimated GFR Glucose POC Capillary Glucose Calcium Phosphorus Magnesium Total Bilirubin AST ALT Alkaline Phosphatase Total Protein Albumin Blood Type A Positive Antibody Screen Negative Crossmatch See Detail
[2024-04-20 11:41] LABS: Glucose Point of Care 95 mg/dl (65-105)
[2024-04-20] MEDS: FUROSEMIDE INJ 100 MG/10 ML VIAL 80 MG IV PUSH (12:23)
--- NOTE | 2024-04-20 12:38 | PCFNICU ---
ICU Rounding Note: Pt current nutrition is Vital AF 1.2 at 50 ml/hr. Last recorded weight is 102.2 kg, up from 99.1 kg on admit. Bowel Motility: +BM 04/18 Labs Reviewed: Cr 0.6, BUN 22, NA 130, Alb 2.3 Meds Noted:Fentanyl, Propofol 25 dbog=506 kcal, Cefepime Skin: WNL Additional Notes: Plans for breathing trial today. If patient remains on mechanical vent, recommend to continue tubefeedings of Vital AF 1.2. at 50 ml/hr. Flush 30 ml q 4 hours. Agree with diet orders at this time. Following daily in ICU rounds. Monitoring diet orders, labs,medication, weights, plan of care Following in rounds, Follow up Wednesday and Wednesday.
[2024-04-20 13:32] LABS: Base Excess ABG 0.6 mEq/l (+/-2.0); Fractional Inspired Oxygen 30 %; HCO3 ABG 23.6 mEq/l (22.0-26.0); Oxygen Content ABG 11.2 %vol (16.0-22.0); Oxygen Saturation ABG 94.9 % (95.0-100.0); Oxyhemoglobin 92.8 % THb (90.0-100.0); PCO2 ABG 31.6 mmHg (35.0-45.0); PO2 ABG 66.8 mmHg (80.0-100.0); PO2 FiO2 Ratio Arterial Blood 2.23 %; Total Hemoglobin 8.5 g/dL (12.0-18.0); pH ABG 7.492 (7.350-7.450)
[2024-04-20 13:45] LABS: Device VENTILATOR; Modified Allen's Test Pass; Site Drawn RIGHT RADIAL
[2024-04-20 13:46] LABS: Arterial Blood Gas PEEP 5 cmH2O; Arterial Blood Gas Pressure Support 5 cmH2O; Arterial Blood Gas Vent Mode SPONTANEOUS
[2024-04-20] MEDS: AMIODARONE 150 MG/D5W 100 ML 150 MG/100 ML BAG 600 MG IV CONT (14:52)
[2024-04-20] MEDS: AMIODARONE 360 MG/D5W 200 ML 360 MG/200 ML BAG 33.33 MG IV CONT (14:53)
[2024-04-20] MEDS: MORPHINE SULFATE (*CRX) 2 MG/ML INJ IV PUSH ×2 (16:58→20:13)
[2024-04-20 17:27] LABS: Glucose Point of Care 101 mg/dl (65-105)
[2024-04-20] MEDS: AMIODARONE 360 MG/D5W 200 ML 360 MG/200 ML BAG 16.67 MG IV CONT (20:36)
[2024-04-20 23:33] LABS: Glucose Point of Care 90 mg/dl (65-105)
[2024-04-21] VITALS (27 sets, daily range): BP systolic 93–124; BP diastolic 52–81; PULSE 71–124; RESP 20–34; TEMP 36.5–37.4; O2SAT 94–100
[2024-04-21] MEDS: MORPHINE SULFATE (*CRX) 2 MG/ML INJ IV PUSH ×4 (01:59→20:50)
[2024-04-21] MEDS: CENTRAL LINE FLUSH 10 ML IV PUSH ×3 (06:07→20:12)
[2024-04-21 06:10] LABS: Glucose Point of Care 91 mg/dl (65-105)
[2024-04-21 06:20] LABS: Hematocrit 21.3 % (42.0-52.0); Immature Granulocyte Absolute 0.03 K/mm3 (0.00-0.031); Immature Granulocyte Percent A 2.1 % (0-0.5); Immature Platelet Fraction Pct 4.4 % (0.9-11.2); Lymphocytes Absolute Auto 0.59 K/mm3 (0.9-3.2); Lymphocytes Percent Auto 42.1 % (18.3-44.2); Mean Corpuscular HGB Conc 31.9 g/dl (32-36); Mean Corpuscular Hemoglobin 27.9 pg (26-34); Mean Corpuscular Volume 87.3 fl (80-100); Mean Platelet Volume 11.2 fl (7.4-10.4); Monocytes Absolute Auto 0.1 K/mm3 (0.1-0.6); Monocytes Percent Auto 7.1 % (2.6-8.5); Neutrophils Absolute Auto 0.7 K/mm3 (1.3-6.7); Neutrophils Percent Auto 48.7 % (45.5-73.1); Platelet Count Result 56 k/mm3 (150-375); Red Blood Count 2.44 M/mm3 (4.6-6.20); Red Cell Distribution Width 17.4 % (11.5-14.5)
[2024-04-21 06:30] LABS: Potassium 3.7 mmol/L (3.4-5.0)
[2024-04-21 06:48] LABS: Alanine Aminotransferase 17 U/L (6-50); Albumin Level 2.5 g/dL (3.5-5.1); Alkaline Phosphatase 77 U/L (38-126); Anion Gap 3 mmol/L (4-12); Aspartate Amino Transferase 24 U/L (17-59); Bilirubin,Total 0.9 mg/dL (0.2-1.3); Blood Urea Nitrogen 24 mg/dL (9-20); Calcium 8.1 mg/dL (8.4-10.2); Carbon Dioxide 25 mmol/L (22-30); Chloride 102 mmol/L (98-107); Estimated CRCL calculation 124 ml/min; Estimated Glomerular Filt Rate > 60; Glucose 150 mg/dL (65-110); Magnesium 1.9 mg/dL (1.6-2.3); Phosphorus 3.7 mg/dL (2.5-4.5); Sodium 130 mmol/L (137-145); Triglycerides 91 mg/dL (<150)
[2024-04-21 07:04] LABS: Hemoglobin 6.8 g/dL (14.0-18.0); White Blood Count 1.4 K/mm3 (4.5-10.0)
[2024-04-21 07:06] LABS: Hypochromasia 1+; Platelet Estimate Decreased (Adequate)
[2024-04-21 07:08] LABS: Anisocytosis 1+; Schistocytes None Seen
[2024-04-21] MEDS: AMIODARONE 360 MG/D5W 200 ML 360 MG/200 ML BAG 16.67 MG IV CONT ×2 (08:00→20:08)
[2024-04-21] MEDS: CEFEPIME 2 GM/NS 50 ML 2 GM/50 ML BAG IVPB ×2 (08:31→16:30)
[2024-04-21] MEDS: DOXYCYCLINE 100 MG/NS 100 ML 100 MG/100 ML BAG IVPB (08:31)
[2024-04-21] MEDS: PANTOPRAZOLE SODIUM IV 40 MG VIAL IV PUSH ×2 (08:32→20:11)
--- NOTE | 2024-04-21 09:56 | WPDINTPN ---
Progress Note: A&P Assessment and Plan (1) Septic shock: Code(s): A41.9 - Sepsis, unspecified organism; R65.21 - Severe sepsis with septic shock Status: Acute Assessment and Plan: Septic shock likely related to pneumonia and neutropenic fever -continue cefepime, will discontinue vancomycin since MRSA screen is negative and cultures have been negative - doxycycline for atypical coverage(04/16) for 5 days -cefepime for a total of 10 days (04/16) -procalcitonin was 4.6 and C-reactive protein was 18.1 -04/15: Blood cultures negative x2 -off Levophed -patient being diuresed and tolerating (2) Acute respiratory failure: Code(s): J96.00 - Acute respiratory failure, unspecified whether with hypoxia or hypercapnia Status: Acute Assessment and Plan: Acute respiratory failure secondary to suggestive heart failure and pneumonia. -04/17: Intubated -04/20: Extubated -continue diuresis with Lasix -patient had significant secretions, will add 3% saline nebs -continue duo nebs -PT/OT, up in chair as tolerated -appreciate speech therapy evaluation, recommended modified barium swallow evaluation (3) Heart failure with reduced ejection fraction: Code(s): I50.20 - Unspecified systolic (congestive) heart failure Status: Acute Assessment and Plan: HFrEF with EF of 30-35% -cardiomyopathy -On Jardiance, metoprolol, Entresto, spironolactone at home -hold all these medications due to patient in septic shock, hypotension on vasopressors -continue Lasix IV -now off pressors -will discuss with Cardiology regarding restarting GDMT 06/29/2023 echocardiogram Summary 1. Definity contrast administered improved wall motion interpretation. 2. Left ventricular chamber dimension is severely enlarged. 3. Left ventricular systolic function is severely globally reduced, estimated at 30-35%. 4. The left ventricular diastolic function is abnormal. 5. E/e' 13 is mildly elevated. 6. Left atrial chamber dimension is severely enlarged. 7. There is mild mitral valve regurgitation. 8. There is trace tricuspid valve regurgitation. 9. No pulmonary hypertension, estimated pulmonary arterial systolic pressure is 28 mmHg. (4) Pneumonia: Code(s): J18.9 - Pneumonia, unspecified organism Status: Acute Assessment and Plan: Chest x-ray showed bilateral pulmonary diffuse reticular opacities R > L -treatment is above (5) Paroxysmal atrial fibrillation with rapid ventricular response: Code(s): I48.0 - Paroxysmal atrial fibrillation Status: Acute Assessment and Plan: Has a history of paroxysmal AFib, was in AFib RVR in the ER, given septic shock patient was started on amiodarone bolus and infusion - 04/17: Patient was also in AFib RVR overnight and this morning, responded well to amiodarone and metoprolol -currently on amiodarone infusion as patient is NPO, -if patient is able to take p.o. will start amiodarone 400 mg p.o. daily per cardiology note (6) Neutropenic fever: Code(s): D70.9 - Neutropenia, unspecified; R50.81 - Fever presenting with conditions classified elsewhere Status: Acute Assessment and Plan: Neutropenic fevers likely related to chemotherapy which was done about 3 weeks ago. Patient has not been feeling well for about a week, complained of generalized weakness low-grade fevers -continue treatment as above -s/p one dose of filgrastim -Heme-Onc consultation -neutropenic precautions (7) Pancytopenia: Code(s): D61.818 - Other pancytopenia Status: Acute Assessment and Plan: 04/20 transfuse 1 unit PRBC monitor count 04/21: Hemoglobin 6.8, will transfuse 1 unit of packed RBCs (8) MDS (myelodysplastic syndrome): Code(s): D46.9 - Myelodysplastic syndrome, unspecified Status: Acute Assessment and Plan: patient was in evaluated by Oncology. Patient has Myelodysplastic syndrome with TP53 mutation status post bone marrow aspiration and biopsy done on February 17, 2024. Bone marrow biopsy showed blast count of 7-15%. 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 Patient was evaluated by heme Onc and recommendation is for palliative care's since patient has a disease with very poor prognosis. This has been conveyed to patient's family (9) Leukemia: Code(s): C95.90 - Leukemia, unspecified not having achieved remission Status: Acute Assessment and Plan: see above (10) Rheumatoid arthritis: Code(s): M06.9 - Rheumatoid arthritis, unspecified Status: Acute Assessment and Plan: Currently sedated propofol and fed Plan DVT prophylaxis: SCDs, no chemoprophylaxis due to thrombocytopenia, anemia Stress ulcer prophylaxis: Protonix IV q.12 hours Nutrition: Continue tube feeds Code Status: Full code Critical Care Time Spent: 34 minutes 04/21: Discussed spouse and one of the daughters and updated them with patient's condition and plan of care. Dr. Lopez had spoken to them in details regarding the prognosis and how aggressive the MDS and leukemia ER and they should have been updated by the scrubber system attendant/oncologist. I also discussed goals of care again code status with the patient who is awake, alert, oriented in front of the and daughter. Patient is currently a full code. I also discussed with him regarding re-intubation, patient does not want to be intubated again but he is going to discuss with family and, within answer. 04/19 I had a long meeting with patient's and daughters yesterday in the conference room and at bedside. It seemed that they were unaware of the details of patient's leukemia/MDS. They were also on aware of the prognosis. I discussed oncologist assessment from his note. I discussed goals of care and code status. They would not ready to make any decisions. Patient is currently full code. I expect explained that I will continue try to wean patient from the ventilator. They were made aware that patient failed his weaning trial. Due to a high probability of clinically significant, life threatening deterioration, the patient required my highest level of preparedness to intervene emergently and I personally spent this critical care time directly and personally managing the patient. This critical care time included obtaining a history; examining the patient; pulse oximetry; ordering and review of studies; arranging urgent treatment with development of a management plan; evaluation of patient's response to treatment; frequent reassessment; and discussions with other providers. It was exclusive of separately billable procedures and treating other patients and teaching time. Please see Assessment and Plan section and the rest of the note for further information on patient assessment and treatment This dictation may have been done utilizing a voice recognition system. Attempts have been made to correct errors. However, there may be uncorrected grammatical, spelling, and recognitions errors present. Subjective Date/time seen: 04/21/24 09:56 Interval history: Reason for consult: Patient admitted to the ICU on 04/16/2024 with Septic shock, hypotension, neutropenic fever, pneumonia, atrial fibrillation RVR 04/20: Extubated 04/21/2024: Patient seen and examined the ICU, remains extubated, on 2 L nasal cannula with adequate O2 sats. Denies any shortness of breath and chest pain, denies any abdomen pain, nausea vomiting. Complains of rheumatoid arthritis pain. Urine output has been adequate, in negative fluid balance in the last 24 hours in response to diuretics, afebrile, hemodynamically stable Review of Systems Review of Systems: All systems reviewed & are unremarkable except as noted in HPI and below Exam Narrative: General: Patient is awake, alert, in no acute distress HEENT:? Pupils equal and reactive, sclera is clear, Neck:? Supple Respiratory:? Coarse breath sounds at bases, cannula otherwise, adequate air entry Cardiac:? T regular rate and rhythm, S1-S2 is normal Abdomen:? Soft, nontender, protuberant, hypoactive bowel sounds Extremities:? Bilateral upper extremity edema, lower extremity edema bilaterally improved, palpable pedal pulses Neuro:? Patient is awake, alert, oriented, nonfocal, follows simple commands and answers to questions appropriately Skin:? Bruising noted Psych:? Flat affect, normal mentation Objective Data Vital Signs Vital Signs: Vital Signs - 24 hr 04/20/24 10:00 04/20/24 10:00 04/20/24 10:00 Temperature Pulse Rate 78 78 78 Respiratory Rate 24 H 24 H Blood Pressure 105/50 L Pulse Oximetry Oxygen Delivery Oxygen Flow Rate Fraction of Inspired Oxygen 04/20/24 10:00 04/20/24 10:00 04/20/24 10:28 Temperature 99.0 F Pulse Rate 78 78 79 Respiratory Rate 24 H 27 H Blood Pressure 105/50 L 102/49 L Pulse Oximetry 100 100 Oxygen Delivery Oxygen Flow Rate Fraction of Inspired Oxygen 04/20/24 11:19 04/20/24 11:19 04/20/24 11:28 Temperature 99.8 F H Pulse Rate 78 78 78 Respiratory Rate 24 H 24 H 24 H Blood Pressure 100/47 L Pulse Oximetry 98 Oxygen Delivery Oxygen Flow Rate Fraction of Inspired Oxygen 04/20/24 12:00 04/20/24 12:00 04/20/24 12:00 Temperature Pulse Rate 78 78 78 Respiratory Rate 22 H 22 H Blood Pressure 97/47 L Pulse Oximetry Oxygen Delivery Oxygen Flow Rate Fraction of Inspired Oxygen 04/20/24 12:00 04/20/24 12:00 04/20/24 12:00 Temperature 99.8 F H Pulse Rate 78 80 Respiratory Rate 22 H Blood Pressure 97/47 L Pulse Oximetry 96 Oxygen Delivery Mechanical Ventilation Oxygen Flow Rate Fraction of Inspired Oxygen 30 04/20/24 12:00 04/20/24 12:22 04/20/24 12:34 Temperature 99.8 F H Pulse Rate 44 L 76 Respiratory Rate 22 H 22 H Blood Pressure 95/45 L Pulse Oximetry 97 Oxygen Delivery Oxygen Flow Rate Fraction of Inspired Oxygen 30 04/20/24 12:34 04/20/24 13:11 04/20/24 13:49 Temperature Pulse Rate 76 82 Respiratory Rate 22 H Blood Pressure Pulse Oximetry 96 98 Oxygen Delivery Mechanical Ventilation Nasal Cannula Oxygen Flow Rate 3 Fraction of Inspired Oxygen 30 04/20/24 14:00 04/20/24 14:00 04/20/24 14:52 Temperature Pulse Rate 86 86 123 H Respiratory Rate 26 H Blood Pressure 117/55 L 102/63 Pulse Oximetry 96 Oxygen Delivery Oxygen Flow Rate Fraction of Inspired Oxygen 04/20/24 14:53 04/20/24 15:03 04/20/24 16:00 Temperature Pulse Rate 123 H 120 H Respiratory Rate Blood Pressure 102/63 Pulse Oximetry 97 Oxygen Delivery Nasal Cannula Oxygen Flow Rate 3 Fraction of Inspired Oxygen 04/20/24 16:00 04/20/24 16:00 04/20/24 16:00 Temperature 100.4 F H Pulse Rate 88 88 88 Respiratory Rate 24 H Blood Pressure 97/57 L 97/57 L Pulse Oximetry 97 Oxygen Delivery Oxygen Flow Rate Fraction of Inspired Oxygen 04/20/24 18:00 04/20/24 18:00 04/20/24 18:00 Temperature Pulse Rate 83 83 83 Respiratory Rate 23 H Blood Pressure 112/52 L 112/52 L Pulse Oximetry 96 Oxygen Delivery Oxygen Flow Rate Fraction of Inspired Oxygen 04/20/24 19:58 04/20/24 20:00 04/20/24 20:00 Temperature 98.7 F Pulse Rate 85 82 82 Respiratory Rate 26 H 31 H Blood Pressure 117/98 H Pulse Oximetry 96 96 Oxygen Delivery Nasal Cannula Oxygen Flow Rate 2 Fraction of Inspired Oxygen 04/20/24 20:32 04/20/24 20:36 04/20/24 22:00 Temperature Pulse Rate 82 82 Respiratory Rate Blood Pressure 117/98 H Pulse Oximetry 96 Oxygen Delivery Nasal Cannula Oxygen Flow Rate 2 Fraction of Inspired Oxygen 04/20/24 22:00 04/20/24 22:00 04/21/24 00:00 Temperature 98.4 F Pulse Rate 82 82 81 Respiratory Rate 26 H 25 H Blood Pressure 114/68 114/68 112/62 Pulse Oximetry 95 96 Oxygen Delivery Oxygen Flow Rate Fraction of Inspired Oxygen 04/21/24 00:00 04/21/24 00:00 04/21/24 00:30 Temperature Pulse Rate 80 85 82 Respiratory Rate 26 H Blood Pressure 112/62 Pulse Oximetry 95 Oxygen Delivery Nasal Cannula Oxygen Flow Rate 2 Fraction of Inspired Oxygen 04/21/24 02:00 04/21/24 02:00 04/21/24 02:00 Temperature Pulse Rate 79 80 80 Respiratory Rate 30 H Blood Pressure 116/59 L 116/59 L Pulse Oximetry 97 Oxygen Delivery Oxygen Flow Rate Fraction of Inspired Oxygen 04/21/24 02:20 04/21/24 03:45 04/21/24 04:00 Temperature Pulse Rate 79 79 74 Respiratory Rate 22 H 22 H Blood Pressure 117/60 Pulse Oximetry 99 99 Oxygen Delivery BiPAP BiPAP Oxygen Flow Rate Fraction of Inspired Oxygen 30 04/21/24 04:00 04/21/24 04:00 04/21/24 06:00 Temperature 98.2 F Pulse Rate 73 73 71 Respiratory Rate 23 H Blood Pressure 117/60 Pulse Oximetry 99 Oxygen Delivery Oxygen Flow Rate Fraction of Inspired Oxygen 04/21/24 06:00 04/21/24 08:00 04/21/24 08:00 Temperature Pulse Rate 72 73 73 Respiratory Rate 23 H Blood Pressure 117/56 L 119/57 L 119/57 L Pulse Oximetry 98 Oxygen Delivery Oxygen Flow Rate Fraction of Inspired Oxygen 04/21/24 08:00 04/21/24 08:00 04/21/24 08:45 Temperature 98.6 F Pulse Rate 75 Respiratory Rate 26 H Blood Pressure 119/57 L Pulse Oximetry 100 97 99 Oxygen Delivery Nasal Cannula Nasal Cannula Oxygen Flow Rate 2 1.5 Fraction of Inspired Oxygen 04/21/24 09:39 Temperature 99.4 F Pulse Rate 74 Respiratory Rate 33 H Blood Pressure 115/57 L Pulse Oximetry 95 Oxygen Delivery Oxygen Flow Rate Fraction of Inspired Oxygen Intake/Output Intake/Output: Intake & Output 04/18/24 04/19/24 04/20/24 04/21/24 23:59 23:59 23:59 23:59 Intake Total 4029.8 2701.4 2643.7 266.6 Output Total 3100 3500 3450 750 Balance 929.8 -798.6 -806.3 -483.4 Meds/Results Medications: Active Medications Generic Name Dose Route Start Last Admin Trade Name Freq PRN Reason Stop Dose Admin Acetaminophen 650 mg 04/19/24 14:17 Acetaminophen Elixir 325 Mg/10.15 Ml Udc FEED TUBE Q6H PRN Mild Pain (1-3) or Fever Acyclovir 400 mg 04/16/24 09:00 04/21/24 07:52 Acyclovir 400 Mg Tablet PO Not Given BID KAVON Albuterol/Ipratropium 3 ml 04/18/24 08:24 Ipratropium 0.5 Mg/Albuterol Sulfate 2.5 Mg Ampul.Neb 3 Ml NEBULIZE Q6HRT PRN Wheezing Amiodarone HCl 400 mg 04/19/24 13:35 04/21/24 07:52 Amiodarone Hcl 200 Mg Tablet PO Not Given DAILY@0800 KAVON Dextrose 12.5 gm 04/17/24 12:00 Dextrose 50% 25 Gm/50 Ml Syringe IV PUSH PRN PRN Hypoglycemia Protocol Glucagon 1 mg 04/17/24 12:00 Glucagon For Inj 1 Mg Vial IM PRN PRN Hypoglycemia Protocol Glucose 15 gm 04/17/24 12:00 Glucose Oral Gel 15 Gm Of Glucse In 37.5 Gm Tube PO PRN PRN Hypoglycemia Protocol Cefepime HCl 2 gm in 50 mls @ 100 mls/hr 04/16/24 08:00 04/21/24 09:14 Maxipime 2 Gm/Ns 50 Ml IVPB 04/25/24 16:29 Infused Q8H KAVON Infusion Doxycycline Hyclate 100 mg in 100 mls @ 100 mls/hr 04/16/24 11:30 04/21/24 08:31 Vibramycin 100 Mg/Ns 100 Ml IVPB 04/21/24 11:29 100 mls/hr Q12HR KAVON Administration Dextrose 1,000 mls @ 100 mls/hr 04/17/24 12:00 Dextrose 5% 1,000 Ml IVPB PRN PRN Hypoglycemia Protocol Amiodarone HCl/Dextrose 360 mg in 200 mls @ 16.667 mls/hr 04/20/24 20:37 04/21/24 08:00 Nexterone 360 Mg/D5w 200 Ml IV CONT 0.5 mg/min .Q12H KAVON 16.67 mls/hr Administration 0.5 MG/MIN Sodium Chloride 250 mls @ 30 mls/hr 04/21/24 07:44 Normal Saline Iv IV CONT 04/21/24 16:03 .Q8H20M STA Insulin Aspart 2 - 5 units 04/17/24 18:00 04/21/24 06:07 Insulin Aspart (*Bkc) 100 Units/Ml SUB-Q Not Given Q6HR [facility] Protocol Levothyroxine Sodium 75 mcg 04/17/24 06:30 04/21/24 06:07 Levothyroxine Sodium 75 Mcg Tablet PO Not Given DAILY@0630 [facility] Metoprolol Tartrate 5 mg 04/17/24 10:27 Metoprolol Tartrate Inj 5 Mg/5 Ml Vial IV PUSH Q6H PRN Tachyarrhythmias Morphine Sulfate 2 mg 04/20/24 16:45 04/21/24 09:32 Morphine Sulfate (*Crx) 2 Mg/Ml Inj IV PUSH 2 mg Q2H PRN Administration Pain Rated 7-10 Pantoprazole Sodium 40 mg 04/16/24 21:00 04/21/24 08:32 Pantoprazole Sodium Iv 40 Mg Vial IV PUSH 40 mg Q12H KAVON Administration Sodium Chloride 10 ml 04/17/24 07:18 Central Line Flush IV PUSH PRN PRN before/after int. infusion Sodium Chloride 10 ml 04/18/24 14:00 04/21/24 06:07 Central Line Flush IV PUSH 10 ml Q8HR KAVON Administration Sodium Chloride 10 ml 04/18/24 11:52 Central Line Flush IV PUSH PRN PRN with TPN bag changes Sodium Chloride 20 ml 04/18/24 11:52 Central Line Flush IV PUSH PRN PRN after blood draws Radiology Results: ITS Impressions Chest X-Ray 04/21/24 06:42 Impression: Small left pleural effusion with left basilar atelectasis versus pneumonia. Bilateral central venous lines in place. Labs Labs: Laboratory Results - last 24 hr 04/20/24 04/20/24 04/20/24 06:37 11:38 13:30 WBC RBC Hgb Hct MCV MCH MCHC RDW Plt Count MPV Immature Gran % (Auto) Neut % (Auto) Lymph % (Auto) [place] % (Auto) Eos % (Auto) Baso % (Auto) Lymph # (Auto) [place] # (Auto) Eos # (Auto) Baso # (Auto) Abs Immat Gran (auto) Absolute Neuts (auto) Absolute Nucleated RBC Nucleated RBC % Platelet Estimate % Immature Plt Fraction Hypochromasia Anisocytosis Schistocytes Puncture Site Right radial ABG pH 7.492 H ABG pCO2 31.6 L ABG pO2 66.8 L ABG PO2/FiO2 Ratio 2.23 ABG HCO3 23.6 ABG O2 Saturation 94.9 L ABG O2 Content 11.2 L ABG Base Excess 0.6 A-a Gradient 110.0 Oxyhemoglobin 92.8 Total Hemoglobin 8.5 L O2 Delivery Device Ventilator O2 Liters/Min Not Reportable Minute Volume Not Reportable Vent Rate Not Reportable Vent Mode Spontaneous FiO2 30 Tidal Volume Not Reportable PEEP 5 Peak Inspir Pressure Not Reportable Pressure Support 5 Sodium Potassium Chloride Carbon Dioxide Anion Gap BUN Creatinine Estim Creat Clear Calc Estimated GFR Glucose POC Capillary Glucose 95 Calcium Phosphorus Magnesium Total Bilirubin AST ALT Alkaline Phosphatase Total Protein Albumin Triglycerides Blood Type A Positive Antibody Screen Negative Crossmatch See Detail 04/20/24 04/20/24 04/21/24 17:24 23:28 06:01 WBC RBC Hgb Hct MCV MCH MCHC RDW Plt Count MPV Immature Gran % (Auto) Neut % (Auto) Lymph % (Auto) [place] % (Auto) Eos % (Auto) Baso % (Auto) Lymph # (Auto) [place]ley # (Auto) Eos # (Auto) Baso # (Auto) Abs Immat Gran (auto) Absolute Neuts (auto) Absolute Nucleated RBC Nucleated RBC % Platelet Estimate % Immature Plt Fraction Hypochromasia Anisocytosis Schistocytes Puncture Site ABG pH ABG pCO2 ABG pO2 ABG PO2/FiO2 Ratio ABG HCO3 ABG O2 Saturation ABG O2 Content ABG Base Excess A-a Gradient Oxyhemoglobin Total Hemoglobin O2 Delivery Device O2 Liters/Min Minute Volume Vent Rate Vent Mode FiO2 Tidal Volume PEEP Peak Inspir Pressure Pressure Support Sodium Potassium Chloride Carbon Dioxide Anion Gap BUN Creatinine Estim Creat Clear Calc Estimated GFR Glucose POC Capillary Glucose 101 90 91 Calcium Phosphorus Magnesium Total Bilirubin AST ALT Alkaline Phosphatase Total Protein Albumin Triglycerides Blood Type Antibody Screen Crossmatch 04/21/24 06:03 WBC 1.4 L* RBC 2.44 L Hgb 6.8 L* Hct 21.3 L MCV 87.3 MCH 27.9 MCHC 31.9 L RDW 17.4 H Plt Count 56 L MPV 11.2 H Immature Gran % (Auto) 2.1 H Neut % (Auto) 48.7 Lymph % (Auto) 42.1 Donley % (Auto) 7.1 Eos % (Auto) 0.0 Baso % (Auto) 0.0 L Lymph # (Auto) 0.59 L Donley # (Auto) 0.1 Eos # (Auto) 0.0 Baso # (Auto) 0.0 Abs Immat Gran (auto) 0.03 Absolute Neuts (auto) 0.7 L Absolute Nucleated RBC 0.000 Nucleated RBC % 0.0 Platelet Estimate Decreased % Immature Plt Fraction 4.4 Hypochromasia 1+ Anisocytosis 1+ Schistocytes None seen Puncture Site ABG pH ABG pCO2 ABG pO2 ABG PO2/FiO2 Ratio ABG HCO3 ABG O2 Saturation ABG O2 Content ABG Base Excess A-a Gradient Oxyhemoglobin Total Hemoglobin O2 Delivery Device O2 Liters/Min Minute Volume Vent Rate Vent Mode FiO2 Tidal Volume PEEP Peak Inspir Pressure Pressure Support Sodium 130 L Potassium 3.7 Chloride 102 Carbon Dioxide 25 Anion Gap 3 L BUN 24 H Creatinine 0.60 L Estim Creat Clear Calc 124 Estimated GFR > 60 Glucose 150 H POC Capillary Glucose Calcium 8.1 L Phosphorus 3.7 Magnesium 1.9 Total Bilirubin 0.9 AST 24 ALT 17 Alkaline Phosphatase 77 Total Protein 7.0 Albumin 2.5 L Triglycerides 91 Blood Type Antibody Screen Crossmatch Quality VTE Prophylaxis VTE prophylaxis: mechanical ordered
[2024-04-21] MEDS: FUROSEMIDE INJ 40 MG/4 ML VIAL IV PUSH (10:48)
[2024-04-21] MEDS: ARTIFICIAL TEARS OPHTH SOLN 15 ML BOTTLE 1 DROP EACH EYE ×2 (10:49→18:15)
[2024-04-21] MEDS: SODIUM CHLORIDE 0.9% IV 250 ML 30 ML IV CONT (10:55)
[2024-04-21 12:00] LABS: Glucose Point of Care 88 mg/dl (65-105)
--- NOTE | 2024-04-21 12:06 | P.PNCA_ITS ---
Progress Note: A&P Assessment and Plan (1) Atrial fibrillation with rapid ventricular response: Code(s): I48.91 - Unspecified atrial fibrillation Status: Acute (2) Septic shock: Code(s): A41.9 - Sepsis, unspecified organism; R65.21 - Severe sepsis with septic shock Status: Acute (3) Heart failure with reduced ejection fraction: Code(s): I50.20 - Unspecified systolic (congestive) heart failure Status: Acute Plan 63-year-old man with HFrEF (30-35%), paroxysmal atrial fibrillation, and myelodysplastic syndrome who presented with fevers, shortness of breath, and weakness admitted for septic shock in setting of neutropenia/pancytopenia now found to have paroxysmal atrial fibrillation with RVR Paroxysmal atrial fibrillation with RVR -continue Amiodarone 400mg PO daily to maintain sinus rhythm. Not able to use beta blockers at this time as he still remains on Levophed. -[id number] VASC score 1 and no strong indication for anticoagulation at this time; although he will turn 64 in a few weeks and there would be stronger indication for anticoagulation at that time. Given his thrombocytopenia, clinically his risk of bleeding exceeds his risk of embolic stroke Septic shock -Remains on Levophed for pressor support. HFrEF -Continue with IV Lasix to aid in possible extubation. Please monitor strict I/Os. -Not able to start heart failure GDMT at this time due to pressor requirement. Myelodysplastic syndrome: -Has a poor prognosis according to Oncology; supportive and comfort care has been recommended. Subjective Date/time seen: 04/21/24 12:06 Interval history: Is currently intubated and sedated. He had SBT yesterday Date of service 04/21/2025: He is extubated and doing well. Had some atrial fibrillation with RVR yesterday so was placed back on amiodarone. Review of Systems Review of Systems: ROS unobtainable: Yes unobtainable due to endotracheal tube Exam Const: General: no acute distress Neck: Neck: no JVD Resp: Effort & Inspection: normal respiratory effort Auscultation: clear to auscultation bilaterally Cardio: Rate: regular rate Rhythm: regular rhythm Heart sounds: Abnormal heart opening sounds Skin: Other: warm Neuro: General: patient oriented x3 Extrem: General: no edema Other: There is mild degree of anasarca Objective Data Vital Signs Vital Signs: Vital Signs - 24 hr 04/20/24 12:22 04/20/24 12:34 04/20/24 12:34 Temperature 37.7 C H Pulse Rate 44 L 76 76 Respiratory Rate 22 H 22 H 22 H Blood Pressure 95/45 L Pulse Oximetry 97 Oxygen Delivery Oxygen Flow Rate Fraction of Inspired Oxygen 04/20/24 13:11 04/20/24 13:49 04/20/24 14:00 Temperature Pulse Rate 82 86 Respiratory Rate Blood Pressure Pulse Oximetry 96 98 Oxygen Delivery Mechanical Ventilation Nasal Cannula Oxygen Flow Rate 3 Fraction of Inspired Oxygen 30 04/20/24 14:00 04/20/24 14:52 04/20/24 14:53 Temperature Pulse Rate 86 123 H 123 H Respiratory Rate 26 H Blood Pressure 117/55 L 102/63 102/63 Pulse Oximetry 96 Oxygen Delivery Oxygen Flow Rate Fraction of Inspired Oxygen 04/20/24 15:03 04/20/24 16:00 04/20/24 16:00 Temperature Pulse Rate 120 H 88 Respiratory Rate Blood Pressure Pulse Oximetry 97 Oxygen Delivery Nasal Cannula Oxygen Flow Rate 3 Fraction of Inspired Oxygen 04/20/24 16:00 04/20/24 16:00 04/20/24 18:00 Temperature 38.0 C H Pulse Rate 88 88 83 Respiratory Rate 24 H Blood Pressure 97/57 L 97/57 L Pulse Oximetry 97 Oxygen Delivery Oxygen Flow Rate Fraction of Inspired Oxygen 04/20/24 18:00 04/20/24 18:00 04/20/24 19:58 Temperature Pulse Rate 83 83 85 Respiratory Rate 23 H 26 H Blood Pressure 112/52 L 112/52 L Pulse Oximetry 96 96 Oxygen Delivery Nasal Cannula Oxygen Flow Rate 2 Fraction of Inspired Oxygen 04/20/24 20:00 04/20/24 20:00 04/20/24 20:32 Temperature 37.1 C Pulse Rate 82 82 Respiratory Rate 31 H Blood Pressure 117/98 H Pulse Oximetry 96 96 Oxygen Delivery Nasal Cannula Oxygen Flow Rate 2 Fraction of Inspired Oxygen 04/20/24 20:36 04/20/24 22:00 04/20/24 22:00 Temperature Pulse Rate 82 82 82 Respiratory Rate 26 H Blood Pressure 117/98 H 114/68 Pulse Oximetry 95 Oxygen Delivery Oxygen Flow Rate Fraction of Inspired Oxygen 04/20/24 22:00 04/21/24 00:00 04/21/24 00:00 Temperature 36.9 C Pulse Rate 82 81 80 Respiratory Rate 25 H Blood Pressure 114/68 112/62 112/62 Pulse Oximetry 96 Oxygen Delivery Oxygen Flow Rate Fraction of Inspired Oxygen 04/21/24 00:00 04/21/24 00:30 04/21/24 02:00 Temperature Pulse Rate 85 82 79 Respiratory Rate 26 H Blood Pressure 116/59 L Pulse Oximetry 95 Oxygen Delivery Nasal Cannula Oxygen Flow Rate 2 Fraction of Inspired Oxygen 04/21/24 02:00 04/21/24 02:00 04/21/24 02:20 Temperature Pulse Rate 80 80 79 Respiratory Rate 30 H 22 H Blood Pressure 116/59 L Pulse Oximetry 97 99 Oxygen Delivery BiPAP Oxygen Flow Rate Fraction of Inspired Oxygen 04/21/24 03:45 04/21/24 04:00 04/21/24 04:00 Temperature Pulse Rate 79 74 73 Respiratory Rate 22 H Blood Pressure 117/60 Pulse Oximetry 99 Oxygen Delivery BiPAP Oxygen Flow Rate Fraction of Inspired Oxygen 30 04/21/24 04:00 04/21/24 06:00 04/21/24 06:00 Temperature 36.8 C Pulse Rate 73 71 72 Respiratory Rate 23 H 23 H Blood Pressure 117/60 117/56 L Pulse Oximetry 99 98 Oxygen Delivery Oxygen Flow Rate Fraction of Inspired Oxygen 04/21/24 08:00 04/21/24 08:00 04/21/24 08:00 Temperature 37.0 C Pulse Rate 73 73 75 Respiratory Rate 26 H Blood Pressure 119/57 L 119/57 L 119/57 L Pulse Oximetry 100 Oxygen Delivery Oxygen Flow Rate Fraction of Inspired Oxygen 04/21/24 08:00 04/21/24 08:00 04/21/24 08:45 Temperature Pulse Rate 73 Respiratory Rate Blood Pressure Pulse Oximetry 97 99 Oxygen Delivery Nasal Cannula Nasal Cannula Oxygen Flow Rate 2 1.5 Fraction of Inspired Oxygen 26 04/21/24 09:39 04/21/24 09:56 04/21/24 10:00 Temperature 37.4 C 36.9 C Pulse Rate 74 75 74 Respiratory Rate 33 H 26 H 27 H Blood Pressure 115/57 L 117/59 L 119/57 L Pulse Oximetry 95 95 95 Oxygen Delivery Oxygen Flow Rate Fraction of Inspired Oxygen 04/21/24 10:00 04/21/24 10:00 04/21/24 10:56 Temperature 37.0 C Pulse Rate 75 75 76 Respiratory Rate 31 H Blood Pressure 117/59 L 123/58 L Pulse Oximetry 98 Oxygen Delivery Oxygen Flow Rate Fraction of Inspired Oxygen Intake/Output Intake/Output: Intake & Output 04/18/24 04/19/24 04/20/24 04/21/24 23:59 23:59 23:59 23:59 Intake Total 4029.8 2701.4 2643.7 299.9 Output Total 3100 3500 3450 750 Balance 929.8 -798.6 -806.3 -450.1 Meds/Results Medications: Active Medications Generic Name Dose Route Start Last Admin Trade Name Freq PRN Reason Stop Dose Admin Acetaminophen 650 mg 04/19/24 14:17 Acetaminophen Elixir 325 Mg/10.15 Ml Udc FEED TUBE Q6H PRN Mild Pain (1-3) or Fever Acyclovir 400 mg 04/16/24 09:00 04/21/24 07:52 Acyclovir 400 Mg Tablet PO Not Given BID KAVON Albuterol/Ipratropium 3 ml 04/18/24 08:24 Ipratropium 0.5 Mg/Albuterol Sulfate 2.5 Mg Ampul.Neb 3 Ml NEBULIZE Q6HRT PRN Wheezing Amiodarone HCl 400 mg 04/19/24 13:35 04/21/24 07:52 Amiodarone Hcl 200 Mg Tablet PO Not Given DAILY@0800 KAVON Artificial Tears 1 drop 04/21/24 10:12 04/21/24 10:49 Artificial Tears Ophth Soln 15 Ml Bottle EACH EYE 1 drop QID PRN Administration Dry Eye(s) Dextrose 12.5 gm 04/17/24 12:00 Dextrose 50% 25 Gm/50 Ml Syringe IV PUSH PRN PRN Hypoglycemia Protocol Glucagon 1 mg 04/17/24 12:00 Glucagon For Inj 1 Mg Vial IM PRN PRN Hypoglycemia Protocol Glucose 15 gm 04/17/24 12:00 Glucose Oral Gel 15 Gm Of Glucse In 37.5 Gm Tube PO PRN PRN Hypoglycemia Protocol Cefepime HCl 2 gm in 50 mls @ 100 mls/hr 04/16/24 08:00 04/21/24 09:14 Maxipime 2 Gm/Ns 50 Ml IVPB 04/25/24 16:29 Infused Q8H KAVON Infusion Dextrose 1,000 mls @ 100 mls/hr 04/17/24 12:00 Dextrose 5% 1,000 Ml IVPB PRN PRN Hypoglycemia Protocol Amiodarone HCl/Dextrose 360 mg in 200 mls @ 16.667 mls/hr 04/20/24 20:37 04/21/24 10:00 Nexterone 360 Mg/D5w 200 Ml IV CONT 0.5 mg/min .Q12H KAVON 16.67 mls/hr Infusion 0.5 MG/MIN Sodium Chloride 250 mls @ 30 mls/hr 04/21/24 07:44 04/21/24 10:55 Normal Saline Iv IV CONT 04/21/24 16:03 30 mls/hr .Q8H20M STA Administration Insulin Aspart 2 - 5 units 04/17/24 18:00 04/21/24 06:07 Insulin Aspart (*Bkc) 100 Units/Ml SUB-Q Not Given Q6HR KAVON Protocol Levothyroxine Sodium 75 mcg 04/17/24 06:30 04/21/24 06:07 Levothyroxine Sodium 75 Mcg Tablet PO Not Given DAILY@0630 [facility] Metoprolol Tartrate 5 mg 04/17/24 10:27 Metoprolol Tartrate Inj 5 Mg/5 Ml Vial IV PUSH Q6H PRN Tachyarrhythmias Morphine Sulfate 2 mg 04/20/24 16:45 04/21/24 09:32 Morphine Sulfate (*Crx) 2 Mg/Ml Inj IV PUSH 2 mg Q2H PRN Administration Pain Rated 7-10 Pantoprazole Sodium 40 mg 04/16/24 21:00 04/21/24 08:32 Pantoprazole Sodium Iv 40 Mg Vial IV PUSH 40 mg Q12H KAVON Administration Polyethylene Glycol 17 gm 04/22/24 09:00 Polyethylene Glycol 3350 17 Gm Powd.Pack PO QAM KAVON Senna/Docusate Sodium 1 tab 04/21/24 21:00 Senna/Docusate Sodium Tablet PO HS KAVON Sodium Chloride 10 ml 04/17/24 07:18 Central Line Flush IV PUSH PRN PRN before/after int. infusion Sodium Chloride 10 ml 04/18/24 14:00 04/21/24 06:07 Central Line Flush IV PUSH 10 ml Q8HR KAVON Administration Sodium Chloride 10 ml 04/18/24 11:52 Central Line Flush IV PUSH PRN PRN with TPN bag changes Sodium Chloride 20 ml 04/18/24 11:52 Central Line Flush IV PUSH PRN PRN after blood draws Sodium Chloride 6 ml 04/21/24 16:00 Sodium Chlor 3% 15 Ml Neb (Respiratory Therapy) INHALATION 04/24/24 08:01 Q8HRT [facility] Radiology Results: ITS Impressions Chest X-Ray 04/21/24 06:42 Impression: Small left pleural effusion with left basilar atelectasis versus pneumonia. Bilateral central venous lines in place. Labs Labs: Laboratory Results - last 24 hr 04/20/24 04/20/24 04/20/24 06:37 13:30 17:24 WBC RBC Hgb Hct MCV MCH MCHC RDW Plt Count MPV Immature Gran % (Auto) Neut % (Auto) Lymph % (Auto) [place] % (Auto) Eos % (Auto) Baso % (Auto) Lymph # (Auto) [place] # (Auto) Eos # (Auto) Baso # (Auto) Abs Immat Gran (auto) Absolute Neuts (auto) Absolute Nucleated RBC Nucleated RBC % Platelet Estimate % Immature Plt Fraction Hypochromasia Anisocytosis Schistocytes Puncture Site Right radial ABG pH 7.492 H ABG pCO2 31.6 L ABG pO2 66.8 L ABG PO2/FiO2 Ratio 2.23 ABG HCO3 23.6 ABG O2 Saturation 94.9 L ABG O2 Content 11.2 L ABG Base Excess 0.6 A-a Gradient 110.0 Oxyhemoglobin 92.8 Total Hemoglobin 8.5 L O2 Delivery Device Ventilator O2 Liters/Min Not Reportable Minute Volume Not Reportable Vent Rate Not Reportable Vent Mode Spontaneous FiO2 30 Tidal Volume Not Reportable PEEP 5 Peak Inspir Pressure Not Reportable Pressure Support 5 Sodium Potassium Chloride Carbon Dioxide Anion Gap BUN Creatinine Estim Creat Clear Calc Estimated GFR Glucose POC Capillary Glucose 101 Calcium Phosphorus Magnesium Total Bilirubin AST ALT Alkaline Phosphatase Total Protein Albumin Triglycerides Blood Type A Positive Antibody Screen Negative Crossmatch See Detail 04/20/24 04/21/24 04/21/24 23:28 06:01 06:03 WBC 1.4 L* RBC 2.44 L Hgb 6.8 L* Hct 21.3 L MCV 87.3 MCH 27.9 MCHC 31.9 L RDW 17.4 H Plt Count 56 L MPV 11.2 H Immature Gran % (Auto) 2.1 H Neut % (Auto) 48.7 Lymph % (Auto) 42.1 [place] % (Auto) 7.1 Eos % (Auto) 0.0 Baso % (Auto) 0.0 L Lymph # (Auto) 0.59 L [place] # (Auto) 0.1 Eos # (Auto) 0.0 Baso # (Auto) 0.0 Abs Immat Gran (auto) 0.03 Absolute Neuts (auto) 0.7 L Absolute Nucleated RBC 0.000 Nucleated RBC % 0.0 Platelet Estimate Decreased % Immature Plt Fraction 4.4 Hypochromasia 1+ Anisocytosis 1+ Schistocytes None seen Puncture Site ABG pH ABG pCO2 ABG pO2 ABG PO2/FiO2 Ratio ABG HCO3 ABG O2 Saturation ABG O2 Content ABG Base Excess A-a Gradient Oxyhemoglobin Total Hemoglobin O2 Delivery Device O2 Liters/Min Minute Volume Vent Rate Vent Mode FiO2 Tidal Volume PEEP Peak Inspir Pressure Pressure Support Sodium 130 L Potassium 3.7 Chloride 102 Carbon Dioxide 25 Anion Gap 3 L BUN 24 H Creatinine 0.60 L Estim Creat Clear Calc 124 Estimated GFR > 60 Glucose 150 H POC Capillary Glucose 90 91 Calcium 8.1 L Phosphorus 3.7 Magnesium 1.9 Total Bilirubin 0.9 AST 24 ALT 17 Alkaline Phosphatase 77 Total Protein 7.0 Albumin 2.5 L Triglycerides 91 Blood Type Antibody Screen Crossmatch 04/21/24 11:48 WBC RBC Hgb Hct MCV MCH MCHC RDW Plt Count MPV Immature Gran % (Auto) Neut % (Auto) Lymph % (Auto) [place] % (Auto) Eos % (Auto) Baso % (Auto) Lymph # (Auto) [place] # (Auto) Eos # (Auto) Baso # (Auto) Abs Immat Gran (auto) Absolute Neuts (auto) Absolute Nucleated RBC Nucleated RBC % Platelet Estimate % Immature Plt Fraction Hypochromasia Anisocytosis Schistocytes Puncture Site ABG pH ABG pCO2 ABG pO2 ABG PO2/FiO2 Ratio ABG HCO3 ABG O2 Saturation ABG O2 Content ABG Base Excess A-a Gradient Oxyhemoglobin Total Hemoglobin O2 Delivery Device O2 Liters/Min Minute Volume Vent Rate Vent Mode FiO2 Tidal Volume PEEP Peak Inspir Pressure Pressure Support Sodium Potassium Chloride Carbon Dioxide Anion Gap BUN Creatinine Estim Creat Clear Calc Estimated GFR Glucose POC Capillary Glucose 88 Calcium Phosphorus Magnesium Total Bilirubin AST ALT Alkaline Phosphatase Total Protein Albumin Triglycerides Blood Type Antibody Screen Crossmatch Quality VTE Prophylaxis VTE prophylaxis: mechanical ordered
--- NOTE | 2024-04-21 12:10 | PCSTNOTE ---
Please refer to the Bedside Swallow Evaluation in the EMR. Please note, silent aspiration cannot be ruled out at bedside.
--- NOTE | 2024-04-21 12:15 | PCNFU ---
Nutrition Follow-Up Complete: Increased protein energy needs related to sepsis, mechanical ventilation as evidenced by need for full tube feeding goal: Meet estimated protein energy needs Patient is progressing towards goal. We will continue current goal. Pt current nutrition is NPO. Nutrition recommendation: awaiting MBS evaluation. Last recorded weight is 100.5 kg, up from 99.1 kg on admit. Bowel Motility: Last reported BM 04/18 Labs Reviewed:Glu 150, BUN 24, Cr 0.6, Alb 2.5 Meds Noted:miralax, Lasix, Protonix, Senokot, NovoLog. Skin: WNL Additional Notes: Patient extubated on 04/20. Room air. Plans for 1 unit of blood today. Diet order NPO at this time. Awaiting for MBS this afternoon. If diet order advances to oral diet would recommend Ensure Compact BID for additional kcal/protein needs. Monitoring diet orders, labs, medication, weights, plan of care ever 3 days.
--- NOTE | 2024-04-21 13:49 | PM.IMPN ---
Progress Note: A&P Assessment and Plan (1) Septic shock: Code(s): A41.9 - Sepsis, unspecified organism; R65.21 - Severe sepsis with septic shock Status: Acute Assessment and Plan: Septic shock likely related to pneumonia and neutropenic fever -continue cefepime, will discontinue vancomycin since MRSA screen is negative and cultures have been negative - doxycycline for atypical coverage(04/16) for 5 days -cefepime for a total of 10 days (04/16) -procalcitonin was 4.6 and C-reactive protein was 18.1 -04/15: Blood cultures negative x2 -off Levophed -patient being diuresed and tolerating (2) Acute respiratory failure: Code(s): J96.00 - Acute respiratory failure, unspecified whether with hypoxia or hypercapnia Status: Acute Assessment and Plan: Acute respiratory failure secondary to suggestive heart failure and pneumonia. -04/17: Intubated -04/20: Extubated -continue diuresis with Lasix -patient had significant secretions, will add 3% saline nebs -continue duo nebs -PT/OT, up in chair as tolerated -appreciate speech therapy evaluation, recommended modified barium swallow evaluation (3) Heart failure with reduced ejection fraction: Code(s): I50.20 - Unspecified systolic (congestive) heart failure Status: Acute Assessment and Plan: HFrEF with EF of 30-35% -cardiomyopathy -On Jardiance, metoprolol, Entresto, spironolactone at home -hold all these medications due to patient in septic shock, hypotension on vasopressors -continue Lasix IV -now off pressors -will discuss with Cardiology regarding restarting GDMT 06/29/2023 echocardiogram Summary 1. Definity contrast administered improved wall motion interpretation. 2. Left ventricular chamber dimension is severely enlarged. 3. Left ventricular systolic function is severely globally reduced, estimated at 30-35%. 4. The left ventricular diastolic function is abnormal. 5. E/e' 13 is mildly elevated. 6. Left atrial chamber dimension is severely enlarged. 7. There is mild mitral valve regurgitation. 8. There is trace tricuspid valve regurgitation. 9. No pulmonary hypertension, estimated pulmonary arterial systolic pressure is 28 mmHg. (4) Pneumonia: Code(s): J18.9 - Pneumonia, unspecified organism Status: Acute Assessment and Plan: Chest x-ray showed bilateral pulmonary diffuse reticular opacities R > L -treatment is above (5) Paroxysmal atrial fibrillation with rapid ventricular response: Code(s): I48.0 - Paroxysmal atrial fibrillation Status: Acute Assessment and Plan: Has a history of paroxysmal AFib, was in AFib RVR in the ER, given septic shock patient was started on amiodarone bolus and infusion - 04/17: Patient was also in AFib RVR overnight and this morning, responded well to amiodarone and metoprolol -currently on amiodarone infusion as patient is NPO, -if patient is able to take p.o. will start amiodarone 400 mg p.o. daily per cardiology note (6) Neutropenic fever: Code(s): D70.9 - Neutropenia, unspecified; R50.81 - Fever presenting with conditions classified elsewhere Status: Acute Assessment and Plan: Neutropenic fevers likely related to chemotherapy which was done about 3 weeks ago. Patient has not been feeling well for about a week, complained of generalized weakness low-grade fevers -continue treatment as above -s/p one dose of filgrastim -Heme-Onc consultation -neutropenic precautions (7) Pancytopenia: Code(s): D61.818 - Other pancytopenia Status: Acute Assessment and Plan: 04/20 transfuse 1 unit PRBC monitor count 04/21: Hemoglobin 6.8, will transfuse 1 unit of packed RBCs (8) MDS (myelodysplastic syndrome): Code(s): D46.9 - Myelodysplastic syndrome, unspecified Status: Acute Assessment and Plan: patient was in evaluated by Oncology. Patient has Myelodysplastic syndrome with TP53 mutation status post bone marrow aspiration and biopsy done on February 17, 2024. Bone marrow biopsy showed blast count of 7-15%. 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 Patient was evaluated by heme Onc and recommendation is for palliative care's since patient has a disease with very poor prognosis. This has been conveyed to patient's family (9) Leukemia: Code(s): C95.90 - Leukemia, unspecified not having achieved remission Status: Acute Assessment and Plan: see above (10) Rheumatoid arthritis: Code(s): M06.9 - Rheumatoid arthritis, unspecified Status: Acute Assessment and Plan: Currently sedated propofol and fed Subjective Date/time seen: 04/21/24 13:49 Interval history: Patient underwent swallow study. Patient denies any complaints. Ordered 1 dose of filgrastim. Received 1 U PRBC Review of Systems Review of Systems: Generalized weakness, Chills, fevers, shortness of breath. All systems reviewed & are unremarkable except as noted in HPI and below ROS unobtainable: Yes unobtainable due to endotracheal tube, unobtainable due to medical condition and unobtainable due to mental status Exam Narrative: General: Patient is awake, alert, in no acute distress HEENT:? Pupils equal and reactive, sclera is clear, Neck:? Supple Respiratory:? Coarse breath sounds at bases, cannula otherwise, adequate air entry Cardiac:? T regular rate and rhythm, S1-S2 is normal Abdomen:? Soft, nontender, protuberant, hypoactive bowel sounds Extremities:? Bilateral upper extremity edema, lower extremity edema bilaterally improved, palpable pedal pulses Neuro:? Patient is awake, alert, oriented, nonfocal, follows simple commands and answers to questions appropriately Skin:? Bruising noted Psych:? Flat affect, normal mentation Const: General: comfortable, no acute distress, well developed, alert, awake, ill appearing, average body habitus and edematous Nutritional Appearance: average body habitus and edematous Orientation/consciousness: patient oriented x3 Other: generalized pallor HENMT: Head: normal to inspection, normocephalic and atraumatic Ears: hearing grossly normal bilaterally Face/Nose/Sinus: normal facial exam Face and sinus: normal facial exam Eyes: General: appearance normal, both eyes and all related structures Pupils: Equal, round and reactive pupils present EOM: EOMs intact bilaterally Neck: Neck: full ROM, no lymphadenopathy and no JVD Thyroid: thyroid normal Lymphatic: no lymphadenopathy noted Resp: Effort & Inspection: normal respiratory effort and able to speak in complete sentences Auscultation: clear to auscultation bilaterally Cardio: Jugular venous distension: no JVD Rate: regular rate Rhythm: regular rhythm Heart sounds: S1 normal heart sound present and S2 normal heart sound present : General: Yes deferred Skin: Rashes: no rashes Wounds: no wounds Neuro: General: patient oriented x3, CN's II-XI intact bilaterally and Unable to assess gait Cranial nerves: Yes CN's II-XII intact bilaterally and Yes Equal, round and reactive pupils present Cognition (Neuro): normal cognition Speech: normal speech Gait exam (Neuro): Unable to assess gait Motor exam (neuro): 5/5 motor strength present throughout Extrem: General: normal to inspection, full ROM, no joint enlargement and no pedal edema Other: bilateral lower extremity edema Objective Data Vital Signs Vital Signs: Vital Signs - 24 hr 04/20/24 14:00 04/20/24 14:00 04/20/24 14:52 Temperature Pulse Rate 86 86 123 H Respiratory Rate 26 H Blood Pressure 117/55 L 102/63 Pulse Oximetry 96 Oxygen Delivery Oxygen Flow Rate Fraction of Inspired Oxygen 04/20/24 14:53 04/20/24 15:03 04/20/24 16:00 Temperature Pulse Rate 123 H 120 H Respiratory Rate Blood Pressure 102/63 Pulse Oximetry 97 Oxygen Delivery Nasal Cannula Oxygen Flow Rate 3 Fraction of Inspired Oxygen 04/20/24 16:00 04/20/24 16:00 04/20/24 16:00 Temperature 100.4 F H Pulse Rate 88 88 88 Respiratory Rate 24 H Blood Pressure 97/57 L 97/57 L Pulse Oximetry 97 Oxygen Delivery Oxygen Flow Rate Fraction of Inspired Oxygen 04/20/24 18:00 04/20/24 18:00 04/20/24 18:00 Temperature Pulse Rate 83 83 83 Respiratory Rate 23 H Blood Pressure 112/52 L 112/52 L Pulse Oximetry 96 Oxygen Delivery Oxygen Flow Rate Fraction of Inspired Oxygen 04/20/24 19:58 04/20/24 20:00 04/20/24 20:00 Temperature 98.7 F Pulse Rate 85 82 82 Respiratory Rate 26 H 31 H Blood Pressure 117/98 H Pulse Oximetry 96 96 Oxygen Delivery Nasal Cannula Oxygen Flow Rate 2 Fraction of Inspired Oxygen 04/20/24 20:32 04/20/24 20:36 04/20/24 22:00 Temperature Pulse Rate 82 82 Respiratory Rate Blood Pressure 117/98 H Pulse Oximetry 96 Oxygen Delivery Nasal Cannula Oxygen Flow Rate 2 Fraction of Inspired Oxygen 04/20/24 22:00 04/20/24 22:00 04/21/24 00:00 Temperature 98.4 F Pulse Rate 82 82 81 Respiratory Rate 26 H 25 H Blood Pressure 114/68 114/68 112/62 Pulse Oximetry 95 96 Oxygen Delivery Oxygen Flow Rate Fraction of Inspired Oxygen 04/21/24 00:00 04/21/24 00:00 04/21/24 00:30 Temperature Pulse Rate 80 85 82 Respiratory Rate 26 H Blood Pressure 112/62 Pulse Oximetry 95 Oxygen Delivery Nasal Cannula Oxygen Flow Rate 2 Fraction of Inspired Oxygen 04/21/24 02:00 04/21/24 02:00 04/21/24 02:00 Temperature Pulse Rate 79 80 80 Respiratory Rate 30 H Blood Pressure 116/59 L 116/59 L Pulse Oximetry 97 Oxygen Delivery Oxygen Flow Rate Fraction of Inspired Oxygen 04/21/24 02:20 04/21/24 03:45 04/21/24 04:00 Temperature Pulse Rate 79 79 74 Respiratory Rate 22 H 22 H Blood Pressure 117/60 Pulse Oximetry 99 99 Oxygen Delivery BiPAP BiPAP Oxygen Flow Rate Fraction of Inspired Oxygen 30 04/21/24 04:00 04/21/24 04:00 04/21/24 06:00 Temperature 98.2 F Pulse Rate 73 73 71 Respiratory Rate 23 H Blood Pressure 117/60 Pulse Oximetry 99 Oxygen Delivery Oxygen Flow Rate Fraction of Inspired Oxygen 04/21/24 06:00 04/21/24 08:00 04/21/24 08:00 Temperature Pulse Rate 72 73 73 Respiratory Rate 23 H Blood Pressure 117/56 L 119/57 L 119/57 L Pulse Oximetry 98 Oxygen Delivery Oxygen Flow Rate Fraction of Inspired Oxygen 04/21/24 08:00 04/21/24 08:00 04/21/24 08:00 Temperature 98.6 F Pulse Rate 75 73 Respiratory Rate 26 H Blood Pressure 119/57 L Pulse Oximetry 100 97 Oxygen Delivery Nasal Cannula Oxygen Flow Rate 2 Fraction of Inspired Oxygen 04/21/24 08:45 04/21/24 09:39 04/21/24 09:56 Temperature 99.4 F 98.5 F Pulse Rate 74 75 Respiratory Rate 33 H 26 H Blood Pressure 115/57 L 117/59 L Pulse Oximetry 99 95 95 Oxygen Delivery Nasal Cannula Oxygen Flow Rate 1.5 Fraction of Inspired Oxygen 04/21/24 10:00 04/21/24 10:00 04/21/24 10:00 Temperature Pulse Rate 74 75 75 Respiratory Rate 27 H Blood Pressure 119/57 L 117/59 L Pulse Oximetry 95 Oxygen Delivery Oxygen Flow Rate Fraction of Inspired Oxygen 04/21/24 10:56 04/21/24 10:56 04/21/24 11:56 Temperature 98.6 F 98.6 F 99.1 F Pulse Rate 76 76 76 Respiratory Rate 31 H 31 H 34 H Blood Pressure 123/58 L 123/58 L 119/81 Pulse Oximetry 98 98 97 Oxygen Delivery Oxygen Flow Rate Fraction of Inspired Oxygen 04/21/24 12:00 04/21/24 12:56 04/21/24 13:30 Temperature 97.7 F 99.0 F 99.0 F Pulse Rate 76 75 75 Respiratory Rate 23 H 30 H 30 H Blood Pressure 119/81 122/68 122/68 Pulse Oximetry 98 95 95 Oxygen Delivery Oxygen Flow Rate Fraction of Inspired Oxygen Intake/Output Intake/Output: Intake & Output 04/18/24 04/19/24 04/20/24 04/21/24 23:59 23:59 23:59 23:59 Intake Total 4029.8 2701.4 2643.7 649.9 Output Total 3100 3500 3450 2375 Balance 929.8 -798.6 -806.3 -1725.1 Meds/Results Medications: Active Medications Generic Name Dose Route Start Last Admin Trade Name Freq PRN Reason Stop Dose Admin Acetaminophen 650 mg 04/19/24 14:17 Acetaminophen Elixir 325 Mg/10.15 Ml Udc FEED TUBE Q6H PRN Mild Pain (1-3) or Fever Acyclovir 400 mg 04/16/24 09:00 04/21/24 07:52 Acyclovir 400 Mg Tablet PO Not Given BID KAVON Albuterol/Ipratropium 3 ml 04/18/24 08:24 Ipratropium 0.5 Mg/Albuterol Sulfate 2.5 Mg Ampul.Neb 3 Ml NEBULIZE Q6HRT PRN Wheezing Amiodarone HCl 400 mg 04/19/24 13:35 04/21/24 07:52 Amiodarone Hcl 200 Mg Tablet PO Not Given DAILY@0800 KAVON Artificial Tears 1 drop 04/21/24 10:12 04/21/24 10:49 Artificial Tears Ophth Soln 15 Ml Bottle EACH EYE 1 drop QID PRN Administration Dry Eye(s) Dextrose 12.5 gm 04/17/24 12:00 Dextrose 50% 25 Gm/50 Ml Syringe IV PUSH PRN PRN Hypoglycemia Protocol Glucagon 1 mg 04/17/24 12:00 Glucagon For Inj 1 Mg Vial IM PRN PRN Hypoglycemia Protocol Glucose 15 gm 04/17/24 12:00 Glucose Oral Gel 15 Gm Of Glucse In 37.5 Gm Tube PO PRN PRN Hypoglycemia Protocol Cefepime HCl 2 gm in 50 mls @ 100 mls/hr 04/16/24 08:00 04/21/24 09:14 Maxipime 2 Gm/Ns 50 Ml IVPB 04/25/24 16:29 Infused Q8H KAVON Infusion Dextrose 1,000 mls @ 100 mls/hr 04/17/24 12:00 Dextrose 5% 1,000 Ml IVPB PRN PRN Hypoglycemia Protocol Amiodarone HCl/Dextrose 360 mg in 200 mls @ 16.667 mls/hr 04/20/24 20:37 04/21/24 10:00 Nexterone 360 Mg/D5w 200 Ml IV CONT 0.5 mg/min .Q12H KAVON 16.67 mls/hr Infusion 0.5 MG/MIN Sodium Chloride 250 mls @ 30 mls/hr 04/21/24 07:44 04/21/24 10:55 Normal Saline Iv IV CONT 04/21/24 16:03 30 mls/hr .Q8H20M STA Administration Insulin Aspart 2 - 5 units 04/17/24 18:00 04/21/24 12:06 Insulin Aspart (*Bkc) 100 Units/Ml SUB-Q Not Given Q6HR [facility] Protocol Levothyroxine Sodium 75 mcg 04/17/24 06:30 04/21/24 06:07 Levothyroxine Sodium 75 Mcg Tablet PO Not Given DAILY@0630 [facility] Metoprolol Tartrate 5 mg 04/17/24 10:27 Metoprolol Tartrate Inj 5 Mg/5 Ml Vial IV PUSH Q6H PRN Tachyarrhythmias Morphine Sulfate 2 mg 04/20/24 16:45 04/21/24 09:32 Morphine Sulfate (*Crx) 2 Mg/Ml Inj IV PUSH 2 mg Q2H PRN Administration Pain Rated 7-10 Pantoprazole Sodium 40 mg 04/16/24 21:00 04/21/24 08:32 Pantoprazole Sodium Iv 40 Mg Vial IV PUSH 40 mg Q12H KAVON Administration Polyethylene Glycol 17 gm 04/22/24 09:00 Polyethylene Glycol 3350 17 Gm Powd.Pack PO QAM KAVON Senna/Docusate Sodium 1 tab 04/21/24 21:00 Senna/Docusate Sodium Tablet PO HS KAVON Sodium Chloride 10 ml 04/17/24 07:18 Central Line Flush IV PUSH PRN PRN before/after int. infusion Sodium Chloride 10 ml 04/18/24 14:00 04/21/24 06:07 Central Line Flush IV PUSH 10 ml Q8HR KAVON Administration Sodium Chloride 10 ml 04/18/24 11:52 Central Line Flush IV PUSH PRN PRN with TPN bag changes Sodium Chloride 20 ml 04/18/24 11:52 Central Line Flush IV PUSH PRN PRN after blood draws Sodium Chloride 6 ml 04/21/24 16:00 Sodium Chlor 3% 15 Ml Neb (Respiratory Therapy) INHALATION 04/24/24 08:01 Q8HRT [facility] Radiology Results: ITS Impressions Chest X-Ray 04/21/24 06:42 Impression: Small left pleural effusion with left basilar atelectasis versus pneumonia. Bilateral central venous lines in place. Labs Labs: Laboratory Results - last 24 hr 04/20/24 04/20/24 04/20/24 06:37 17:24 23:28 WBC RBC Hgb Hct MCV MCH MCHC RDW Plt Count MPV Immature Gran % (Auto) Neut % (Auto) Lymph % (Auto) [place] % (Auto) Eos % (Auto) Baso % (Auto) Lymph # (Auto) [place] # (Auto) Eos # (Auto) Baso # (Auto) Abs Immat Gran (auto) Absolute Neuts (auto) Absolute Nucleated RBC Nucleated RBC % Platelet Estimate % Immature Plt Fraction Hypochromasia Anisocytosis Schistocytes Sodium Potassium Chloride Carbon Dioxide Anion Gap BUN Creatinine Estim Creat Clear Calc Estimated GFR Glucose POC Capillary Glucose 101 90 Calcium Phosphorus Magnesium Total Bilirubin AST ALT Alkaline Phosphatase Total Protein Albumin Triglycerides Blood Type A Positive Antibody Screen Negative Crossmatch See Detail 04/21/24 04/21/24 04/21/24 06:01 06:03 11:48 WBC 1.4 L* RBC 2.44 L Hgb 6.8 L* Hct 21.3 L MCV 87.3 MCH 27.9 MCHC 31.9 L RDW 17.4 H Plt Count 56 L MPV 11.2 H Immature Gran % (Auto) 2.1 H Neut % (Auto) 48.7 Lymph % (Auto) 42.1 [place] % (Auto) 7.1 Eos % (Auto) 0.0 Baso % (Auto) 0.0 L Lymph # (Auto) 0.59 L [place] # (Auto) 0.1 Eos # (Auto) 0.0 Baso # (Auto) 0.0 Abs Immat Gran (auto) 0.03 Absolute Neuts (auto) 0.7 L Absolute Nucleated RBC 0.000 Nucleated RBC % 0.0 Platelet Estimate Decreased % Immature Plt Fraction 4.4 Hypochromasia 1+ Anisocytosis 1+ Schistocytes None seen Sodium 130 L Potassium 3.7 Chloride 102 Carbon Dioxide 25 Anion Gap 3 L BUN 24 H Creatinine 0.60 L Estim Creat Clear Calc 124 Estimated GFR > 60 Glucose 150 H POC Capillary Glucose 91 88 Calcium 8.1 L Phosphorus 3.7 Magnesium 1.9 Total Bilirubin 0.9 AST 24 ALT 17 Alkaline Phosphatase 77 Total Protein 7.0 Albumin 2.5 L Triglycerides 91 Blood Type Antibody Screen Crossmatch Quality VTE Prophylaxis VTE prophylaxis: mechanical ordered Hospitalist MIPS Advance Care Plan I have confirmed that the patient's Advanced Care Plan is present, code status is documented, or surrogate decision maker is listed in patient medical record.: Yes Medication Reconciliation I have utilized all available resources to obtain, update and review the patients current medications (includes all prescriptions, OTC, herbals, cannabis, and nutritional supplements).: Yes
--- NOTE | 2024-04-21 14:01 | ECG_ITS ---
Test Date: 2024-04-21 14:11:02 Measurements Intervals [place] Rate: 116 P: 0 NV: 0 QRS: -30 QRSD: 153 T: 16 QT: 363 QTc: 505 Interpretive Statements ATRIAL FIBRILLATION WITH RAPID VENTRICULAR RESPONSE RIGHT BUNDLE BRANCH BLOCK [120+ ms QRS DURATION, UPRIGHT V1, 40+ ms S IN I/aVL/V4/V5/V6] Compared to ECG 04/15/2024 18:57:53 ATRIAL FIBRILLATION NOW PRESENT Electronically Signed On 04-21-2024 15:48:12 RESERVATIONS SALES SUPERVISOR by Haydee Obregon M.D.
[2024-04-21] MEDS: METOPROLOL TARTRATE INJ 5 MG/5 ML VIAL IV PUSH (14:31)
[2024-04-21] MEDS: ACYCLOVIR 400 MG TABLET PO (16:30)
--- NOTE | 2024-04-21 16:32 | PCSTNOTE ---
Please refer to the Modified Barium Swallow Evaluation in the EMR.
[2024-04-21] MEDS: FILGRASTIM-SNDZ 300 MCG/0.5 ML SYRINGE SUB-Q (17:05)
[2024-04-21 17:12] LABS: Hemoglobin 8.1 g/dL (14.0-18.0)
[2024-04-21 17:53] LABS: Glucose Point of Care 75 mg/dl (65-105)
[2024-04-21] MEDS: SENNA/DOCUSATE SODIUM TABLET 1 TAB PO (20:11)
[2024-04-21] MEDS: ALBUTEROL SULFATE NEB 2.5 MG/3 ML INH INHALATION (20:32)
[2024-04-21] MEDS: ACETYLCYSTEINE 20% INHAL SOLN 800 MG/4 ML VIAL 200 MG INHALATION (20:32)
[2024-04-22] VITALS (22 sets, daily range): BP systolic 102–132; BP diastolic 52–86; PULSE 72–93; RESP 15–33; TEMP 36.6–37.3; O2SAT 92–100
[2024-04-22 00:32] LABS: Glucose Point of Care 80 mg/dl (65-105)
[2024-04-22] MEDS: CEFEPIME 2 GM/NS 50 ML 2 GM/50 ML BAG IVPB ×4 (00:34→23:43)
[2024-04-22] MEDS: ARTIFICIAL TEARS OPHTH SOLN 15 ML BOTTLE 1 DROP EACH EYE ×2 (00:39→08:04)
[2024-04-22] MEDS: FUROSEMIDE INJ 40 MG/4 ML VIAL IV PUSH (01:24)
[2024-04-22] MEDS: ALBUTEROL SULFATE NEB 2.5 MG/3 ML INH INHALATION ×4 (02:54→20:39)
[2024-04-22] MEDS: ACETYLCYSTEINE 20% INHAL SOLN 800 MG/4 ML VIAL 200 MG INHALATION ×4 (02:54→20:39)
[2024-04-22] MEDS: MORPHINE SULFATE (*CRX) 2 MG/ML INJ IV PUSH ×3 (04:24→23:50)
[2024-04-22 04:48] LABS: Basophils Percent Auto 1.5 % (0.2-1.2); Hematocrit 23.7 % (42.0-52.0); Immature Granulocyte Absolute 0.16 K/mm3 (0.00-0.031); Immature Granulocyte Percent A 5.9 % (0-0.5); Immature Platelet Fraction Pct 4.2 % (0.9-11.2); Lymphocytes Absolute Auto 0.48 K/mm3 (0.9-3.2); Lymphocytes Percent Auto 17.6 % (18.3-44.2); Mean Corpuscular HGB Conc 33.8 g/dl (32-36); Mean Corpuscular Hemoglobin 29.4 pg (26-34); Mean Corpuscular Volume 87.1 fl (80-100); Mean Platelet Volume 10.3 fl (7.4-10.4); Monocytes Absolute Auto 0.1 K/mm3 (0.1-0.6); Neutrophils Absolute Auto 1.9 K/mm3 (1.3-6.7); Red Blood Count 2.72 M/mm3 (4.6-6.20); Red Cell Distribution Width 16.7 % (11.5-14.5); White Blood Count 2.7 K/mm3 (4.5-10.0)
[2024-04-22 05:00] LABS: Alanine Aminotransferase 19 U/L (6-50); Albumin Level 2.6 g/dL (3.5-5.1); Alkaline Phosphatase 80 U/L (38-126); Anion Gap 5 mmol/L (4-12); Aspartate Amino Transferase 27 U/L (17-59); Bilirubin,Total 1.3 mg/dL (0.2-1.3); Blood Urea Nitrogen 22 mg/dL (9-20); Calcium 8.5 mg/dL (8.4-10.2); Carbon Dioxide 24 mmol/L (22-30); Chloride 102 mmol/L (98-107); Estimated CRCL calculation 124 ml/min; Estimated Glomerular Filt Rate > 60; Glucose 86 mg/dL (65-110); Magnesium 1.8 mg/dL (1.6-2.3); Phosphorus 3.4 mg/dL (2.5-4.5); Potassium 3.4 mmol/L (3.4-5.0); Sodium 131 mmol/L (137-145)
[2024-04-22 05:15] LABS: Platelet Count Result 61 k/mm3 (150-375)
[2024-04-22 05:16] LABS: Anisocytosis 1+; Hypochromasia 1+; Microcytosis 1+ (NORMAL); Platelet Estimate Decreased (Adequate); Schistocytes None Seen
[2024-04-22] MEDS: CENTRAL LINE FLUSH 10 ML IV PUSH ×3 (06:00→20:37)
[2024-04-22] MEDS: LEVOTHYROXINE SODIUM 75 MCG TABLET PO (06:07)
[2024-04-22] MEDS: ACYCLOVIR 400 MG TABLET PO ×2 (08:06→15:59)
[2024-04-22] MEDS: polyethylene glycoL 3350 17 GM POWD.PACK PO (08:06)
[2024-04-22] MEDS: AMIODARONE HCL 200 MG TABLET 400 MG PO (08:06)
[2024-04-22] MEDS: PANTOPRAZOLE SODIUM IV 40 MG VIAL IV PUSH ×2 (08:06→20:37)
--- NOTE | 2024-04-22 09:20 | P.PNIM_ITS ---
Progress Note: A&P Assessment and Plan (1) Septic shock: Code(s): A41.9 - Sepsis, unspecified organism; R65.21 - Severe sepsis with septic shock Status: Acute Assessment and Plan: Septic shock likely related to pneumonia and neutropenic fever -continue cefepime, will discontinue vancomycin since MRSA screen is negative and cultures have been negative - doxycycline for atypical coverage(04/16) for 5 days -cefepime for a total of 10 days (04/16) -procalcitonin was 4.6 and C-reactive protein was 18.1 -04/15: Blood cultures negative x2 -off Levophed -patient being diuresed and tolerating (2) Acute respiratory failure: Code(s): J96.00 - Acute respiratory failure, unspecified whether with hypoxia or hypercapnia Status: Acute Assessment and Plan: Acute respiratory failure secondary to suggestive heart failure and pneumonia. -04/17: Intubated -04/20: Extubated -continue diuresis with Lasix -patient had significant secretions, will add 3% saline nebs -continue duo nebs -PT/OT, up in chair as tolerated -appreciate speech therapy evaluation, recommended modified barium swallow evaluation (3) Heart failure with reduced ejection fraction: Code(s): I50.20 - Unspecified systolic (congestive) heart failure Status: Acute Assessment and Plan: HFrEF with EF of 30-35% -cardiomyopathy -On Jardiance, metoprolol, Entresto, spironolactone at home -hold all these medications due to patient in septic shock, hypotension on vasopressors -continue Lasix IV -now off pressors -will discuss with Cardiology regarding restarting GDMT 06/29/2023 echocardiogram Summary 1. Definity contrast administered improved wall motion interpretation. 2. Left ventricular chamber dimension is severely enlarged. 3. Left ventricular systolic function is severely globally reduced, estimated at 30-35%. 4. The left ventricular diastolic function is abnormal. 5. E/e' 13 is mildly elevated. 6. Left atrial chamber dimension is severely enlarged. 7. There is mild mitral valve regurgitation. 8. There is trace tricuspid valve regurgitation. 9. No pulmonary hypertension, estimated pulmonary arterial systolic pressure is 28 mmHg. (4) Pneumonia: Code(s): J18.9 - Pneumonia, unspecified organism Status: Acute Assessment and Plan: Chest x-ray showed bilateral pulmonary diffuse reticular opacities R > L -treatment is above (5) Paroxysmal atrial fibrillation with rapid ventricular response: Code(s): I48.0 - Paroxysmal atrial fibrillation Status: Acute Assessment and Plan: Has a history of paroxysmal AFib, was in AFib RVR in the ER, given septic shock patient was started on amiodarone bolus and infusion - 04/17: Patient was also in AFib RVR overnight and this morning, responded well to amiodarone and metoprolol -currently on amiodarone infusion as patient is NPO, -if patient is able to take p.o. will start amiodarone 400 mg p.o. daily per cardiology note (6) Neutropenic fever: Code(s): D70.9 - Neutropenia, unspecified; R50.81 - Fever presenting with conditions classified elsewhere Status: Acute Assessment and Plan: Neutropenic fevers likely related to chemotherapy which was done about 3 weeks ago. Patient has not been feeling well for about a week, complained of generalized weakness low-grade fevers -continue treatment as above -s/p one dose of filgrastim -Heme-Onc consultation -neutropenic precautions (7) Pancytopenia: Code(s): D61.818 - Other pancytopenia Status: Acute Assessment and Plan: 04/20 transfuse 1 unit PRBC monitor count 04/21: Hemoglobin 6.8, will transfuse 1 unit of packed RBCs (8) MDS (myelodysplastic syndrome): Code(s): D46.9 - Myelodysplastic syndrome, unspecified Status: Acute Assessment and Plan: patient was in evaluated by Oncology. Patient has Myelodysplastic syndrome with TP53 mutation status post bone marrow aspiration and biopsy done on February 17, 2024. Bone marrow biopsy showed blast count of 7-15%. 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 Patient was evaluated by heme Onc and recommendation is for palliative care's since patient has a disease with very poor prognosis. This has been conveyed to patient's family (9) Leukemia: Code(s): C95.90 - Leukemia, unspecified not having achieved remission Status: Acute Assessment and Plan: see above (10) Rheumatoid arthritis: Code(s): M06.9 - Rheumatoid arthritis, unspecified Status: Acute Assessment and Plan: Currently sedated propofol and fed Subjective Date/time seen: 04/22/24 09:20 Interval history: Ordered filgrastim one dose at 5 pm. No signs of infection. Patient denies any specific complaint. Patient down amiodarone 400 mg p.o. q.d. and amiodarone drip has been stopped. Review of Systems Review of Systems: Generalized weakness, Chills, fevers, shortness of breath. All systems reviewed & are unremarkable except as noted in HPI and below ROS unobtainable: Yes unobtainable due to endotracheal tube, unobtainable due to medical condition and unobtainable due to mental status Exam Narrative: General: Patient is awake, alert, in no acute distress HEENT:? Pupils equal and reactive, sclera is clear, Neck:? Supple Respiratory:? Coarse breath sounds at bases, cannula otherwise, adequate air entry Cardiac:? T regular rate and rhythm, S1-S2 is normal Abdomen:? Soft, nontender, protuberant, hypoactive bowel sounds Extremities:? Bilateral upper extremity edema, lower extremity edema bilaterally improved, palpable pedal pulses Neuro:? Patient is awake, alert, oriented, nonfocal, follows simple commands and answers to questions appropriately Skin:? Bruising noted Psych:? Flat affect, normal mentation Const: General: comfortable, no acute distress, well developed, alert, awake, ill appearing, average body habitus and edematous Nutritional Appearance: average body habitus and edematous Orientation/consciousness: patient oriented x3 Other: generalized pallor HENMT: Head: normal to inspection, normocephalic and atraumatic Ears: hearing grossly normal bilaterally Face/Nose/Sinus: normal facial exam Face and sinus: normal facial exam Eyes: General: appearance normal, both eyes and all related structures Pupils: Equal, round and reactive pupils present EOM: EOMs intact bilaterally Neck: Neck: full ROM, no lymphadenopathy and no JVD Thyroid: thyroid normal Lymphatic: no lymphadenopathy noted Resp: Effort & Inspection: normal respiratory effort and able to speak in complete sentences Auscultation: clear to auscultation bilaterally Cardio: Jugular venous distension: no JVD Rate: regular rate Rhythm: regular rhythm Heart sounds: S1 normal heart sound present and S2 normal heart sound present : General: Yes deferred Skin: Rashes: no rashes Wounds: no wounds Neuro: General: patient oriented x3, CN's II-XI intact bilaterally and Unable to assess gait Cranial nerves: Yes CN's II-XII intact bilaterally and Yes Equal, round and reactive pupils present Cognition (Neuro): normal cognition Speech: normal speech Gait exam (Neuro): Unable to assess gait Motor exam (neuro): 5/5 motor strength present throughout Extrem: General: normal to inspection, full ROM, no joint enlargement and no pedal edema Other: bilateral lower extremity edema Objective Data Vital Signs Vital Signs: Vital Signs - 24 hr 04/21/24 09:39 04/21/24 09:56 04/21/24 10:00 Temperature 99.4 F 98.5 F Pulse Rate 74 75 74 Respiratory Rate 33 H 26 H 27 H Blood Pressure 115/57 L 117/59 L 119/57 L Pulse Oximetry 95 95 95 Oxygen Delivery Oxygen Flow Rate 04/21/24 10:00 04/21/24 10:00 04/21/24 10:56 Temperature 98.6 F Pulse Rate 75 75 76 Respiratory Rate 31 H Blood Pressure 117/59 L 123/58 L Pulse Oximetry 98 Oxygen Delivery Oxygen Flow Rate 04/21/24 10:56 04/21/24 11:56 04/21/24 12:00 Temperature 98.6 F 99.1 F 97.7 F Pulse Rate 76 76 76 Respiratory Rate 31 H 34 H 23 H Blood Pressure 123/58 L 119/81 119/81 Pulse Oximetry 98 97 98 Oxygen Delivery Oxygen Flow Rate 04/21/24 12:00 04/21/24 12:00 04/21/24 12:00 Temperature Pulse Rate 76 76 Respiratory Rate Blood Pressure 119/81 Pulse Oximetry 97 Oxygen Delivery Room Air Oxygen Flow Rate 04/21/24 12:56 04/21/24 13:30 04/21/24 14:00 Temperature 99.0 F 99.0 F Pulse Rate 75 75 104 H Respiratory Rate 30 H 30 H 23 H Blood Pressure 122/68 122/68 118/74 Pulse Oximetry 95 95 97 Oxygen Delivery Oxygen Flow Rate 04/21/24 14:00 04/21/24 14:31 04/21/24 16:00 Temperature Pulse Rate 115 H 124 H Respiratory Rate Blood Pressure Pulse Oximetry 98 Oxygen Delivery Room Air Oxygen Flow Rate 04/21/24 16:00 04/21/24 16:00 04/21/24 18:00 Temperature 98.2 F Pulse Rate 76 80 77 Respiratory Rate 30 H Blood Pressure 108/65 Pulse Oximetry 97 Oxygen Delivery Oxygen Flow Rate 04/21/24 20:00 04/21/24 20:00 04/21/24 20:00 Temperature Pulse Rate 78 78 Respiratory Rate Blood Pressure 124/64 Pulse Oximetry Oxygen Delivery Room Air Oxygen Flow Rate 04/21/24 20:00 04/21/24 20:08 04/21/24 20:08 Temperature 97.8 F Pulse Rate 78 77 77 Respiratory Rate 28 H Blood Pressure 124/64 124/64 124/64 Pulse Oximetry 97 Oxygen Delivery Oxygen Flow Rate 04/21/24 20:32 04/21/24 20:32 04/21/24 20:42 Temperature Pulse Rate 75 75 72 Respiratory Rate 21 H 21 H 30 H Blood Pressure Pulse Oximetry 98 Oxygen Delivery Room Air Oxygen Flow Rate 04/21/24 22:00 04/21/24 22:00 04/21/24 22:00 Temperature Pulse Rate 79 79 79 Respiratory Rate 20 Blood Pressure 93/52 L 93/52 L Pulse Oximetry 94 Oxygen Delivery Oxygen Flow Rate 04/21/24 23:00 04/22/24 00:00 04/22/24 00:00 Temperature Pulse Rate 78 79 Respiratory Rate Blood Pressure 121/54 L 116/52 L Pulse Oximetry Oxygen Delivery Room Air Oxygen Flow Rate 04/22/24 00:00 04/22/24 00:00 04/22/24 02:00 Temperature 98.3 F Pulse Rate 79 79 77 Respiratory Rate 32 H Blood Pressure 116/52 L Pulse Oximetry 93 Oxygen Delivery Oxygen Flow Rate 04/22/24 02:00 04/22/24 02:00 04/22/24 02:55 Temperature Pulse Rate 77 77 77 Respiratory Rate 33 H 23 H Blood Pressure 121/59 L 121/59 L Pulse Oximetry 92 Oxygen Delivery Oxygen Flow Rate 04/22/24 03:04 04/22/24 04:00 04/22/24 04:00 Temperature Pulse Rate 74 82 Respiratory Rate 22 H Blood Pressure 113/56 L Pulse Oximetry 92 Oxygen Delivery Nasal Cannula Oxygen Flow Rate 2 04/22/24 04:00 04/22/24 04:00 04/22/24 06:00 Temperature 98 F Pulse Rate 82 82 74 Respiratory Rate 27 H Blood Pressure 113/56 L 102/77 Pulse Oximetry 92 Oxygen Delivery Oxygen Flow Rate 04/22/24 06:00 04/22/24 06:00 04/22/24 08:00 Temperature 99.1 F Pulse Rate 74 74 75 Respiratory Rate 26 H 15 Blood Pressure 102/77 127/56 L Pulse Oximetry 97 95 Oxygen Delivery Oxygen Flow Rate 04/22/24 08:00 04/22/24 08:06 04/22/24 08:14 Temperature Pulse Rate 72 Respiratory Rate Blood Pressure Pulse Oximetry 97 96 Oxygen Delivery Room Air Nasal Cannula Oxygen Flow Rate 1 04/22/24 08:14 04/22/24 08:27 04/22/24 08:39 Temperature Pulse Rate 72 74 Respiratory Rate 21 H 23 H Blood Pressure Pulse Oximetry 97 Oxygen Delivery Room Air Oxygen Flow Rate Intake/Output Intake/Output: Intake & Output 04/19/24 04/20/24 04/21/24 04/22/24 23:59 23:59 23:59 23:59 Intake Total 2701.4 2643.7 1014.4 466.6 Output Total 3500 3450 3175 1900 Balance -798.6 -806.3 -2160.6 -1433.4 Meds/Results Medications: Active Medications Generic Name Dose Route Start Last Admin Trade Name Freq PRN Reason Stop Dose Admin Acetaminophen 650 mg 04/19/24 14:17 Acetaminophen Elixir 325 Mg/10.15 Ml Udc FEED TUBE Q6H PRN Mild Pain (1-3) or Fever Acetylcysteine 200 mg 04/21/24 20:00 04/22/24 08:13 Acetylcysteine 20% Inhal Soln 800 Mg/4 Ml Vial INHALATION 200 mg Q6HRT KAVON Administration Acyclovir 400 mg 04/16/24 09:00 04/22/24 08:06 Acyclovir 400 Mg Tablet PO 400 mg BID KAVON Administration Albuterol 2.5 mg 04/21/24 20:00 04/22/24 08:14 Albuterol Sulfate Neb 2.5 Mg/3 Ml Inh INHALATION 2.5 mg Q6HRT KAVON Administration Albuterol/Ipratropium 3 ml 04/18/24 08:24 Ipratropium 0.5 Mg/Albuterol Sulfate 2.5 Mg Ampul.Neb 3 Ml NEBULIZE Q6HRT PRN Wheezing Amiodarone HCl 400 mg 04/19/24 13:35 04/22/24 08:06 Amiodarone Hcl 200 Mg Tablet PO 400 mg DAILY@0800 KAVON Administration Artificial Tears 1 drop 04/21/24 10:12 04/22/24 08:04 Artificial Tears Ophth Soln 15 Ml Bottle EACH EYE 1 drop QID PRN Administration Dry Eye(s) Dextrose 12.5 gm 04/17/24 12:00 Dextrose 50% 25 Gm/50 Ml Syringe IV PUSH PRN PRN Hypoglycemia Protocol Filgrastim-Sndz 300 mcg 04/22/24 17:00 Filgrastim-Sndz 300 Mcg/0.5 Ml Syringe SUB-Q 04/22/24 17:01 ONCE ONE Glucagon 1 mg 04/17/24 12:00 Glucagon For Inj 1 Mg Vial IM PRN PRN Hypoglycemia Protocol Glucose 15 gm 04/17/24 12:00 Glucose Oral Gel 15 Gm Of Glucse In 37.5 Gm Tube PO PRN PRN Hypoglycemia Protocol Cefepime HCl 2 gm in 50 mls @ 100 mls/hr 04/16/24 08:00 04/22/24 08:06 Maxipime 2 Gm/Ns 50 Ml IVPB 04/25/24 16:29 100 mls/hr Q8H KAVON Administration Dextrose 1,000 mls @ 100 mls/hr 04/17/24 12:00 Dextrose 5% 1,000 Ml IVPB PRN PRN Hypoglycemia Protocol Amiodarone HCl/Dextrose 360 mg in 200 mls @ 16.667 mls/hr 04/20/24 20:37 04/22/24 06:00 Nexterone 360 Mg/D5w 200 Ml IV CONT 0.5 mg/min .Q12H KAVON 16.67 mls/hr Infusion 0.5 MG/MIN Insulin Aspart 2 - 5 units 04/17/24 18:00 04/22/24 05:40 Insulin Aspart (*Bkc) 100 Units/Ml SUB-Q Not Given Q6HR [facility] Protocol Levothyroxine Sodium 75 mcg 04/17/24 06:30 04/22/24 06:07 Levothyroxine Sodium 75 Mcg Tablet PO 75 mcg DAILY@0630 KAVON Administration Metoprolol Tartrate 5 mg 04/17/24 10:27 04/21/24 14:31 Metoprolol Tartrate Inj 5 Mg/5 Ml Vial IV PUSH 5 mg Q6H PRN Administration Tachyarrhythmias Morphine Sulfate 2 mg 04/20/24 16:45 04/22/24 04:24 Morphine Sulfate (*Crx) 2 Mg/Ml Inj IV PUSH 2 mg Q2H PRN Administration Pain Rated 7-10 Pantoprazole Sodium 40 mg 04/16/24 21:00 04/22/24 08:06 Pantoprazole Sodium Iv 40 Mg Vial IV PUSH 40 mg Q12H KAVON Administration Polyethylene Glycol 17 gm 04/22/24 09:00 04/22/24 08:06 Polyethylene Glycol 3350 17 Gm Powd.Pack PO 17 gm QAM KAVON Administration Senna/Docusate Sodium 1 tab 04/21/24 21:00 04/21/24 20:11 Senna/Docusate Sodium Tablet PO 1 tab HS KAVON Administration Sodium Chloride 10 ml 04/18/24 14:00 04/22/24 06:00 Central Line Flush IV PUSH 10 ml Q8HR KAVON Administration Sodium Chloride 10 ml 04/18/24 11:52 Central Line Flush IV PUSH PRN PRN with TPN bag changes Sodium Chloride 20 ml 04/18/24 11:52 Central Line Flush IV PUSH PRN PRN after blood draws Radiology Results: ITS Impressions Modified Barium Swallow 04/21/24 16:00 IMPRESSION: Patient tolerated regular consistency oral feedings in the upright position. Please correlate with speech pathologist findings and specific feeding recommendations. Chest X-Ray 04/22/24 06:17 IMPRESSION: 1. Stable airspace opacities in left lower lung zone, consistent with atelectasis versus pneumonia. 2. Stable small left pleural effusion. 3. Cardiomegaly. Labs Labs: Laboratory Results - last 24 hr 04/20/24 04/21/24 04/21/24 06:37 11:48 16:56 WBC RBC Hgb 8.1 L Hct 24.0 L MCV MCH MCHC RDW Plt Count MPV Immature Gran % (Auto) Neut % (Auto) Lymph % (Auto) Ector % (Auto) Eos % (Auto) Baso % (Auto) Lymph # (Auto) Ector # (Auto) Eos # (Auto) Baso # (Auto) Abs Immat Gran (auto) Absolute Neuts (auto) Absolute Nucleated RBC Nucleated RBC % Platelet Estimate % Immature Plt Fraction Hypochromasia Anisocytosis Microcytosis Schistocytes Sodium Potassium Chloride Carbon Dioxide Anion Gap BUN Creatinine Estim Creat Clear Calc Estimated GFR Glucose POC Capillary Glucose 88 Calcium Phosphorus Magnesium Total Bilirubin AST ALT Alkaline Phosphatase Total Protein Albumin Blood Type A Positive Antibody Screen Negative Crossmatch See Detail 04/21/24 04/22/24 04/22/24 17:50 00:28 04:40 WBC 2.7 L RBC 2.72 L Hgb 8.0 L Hct 23.7 L MCV 87.1 MCH 29.4 D MCHC 33.8 RDW 16.7 H Plt Count 61 L MPV 10.3 Immature Gran % (Auto) 5.9 H Neut % (Auto) 71.0 Lymph % (Auto) 17.6 L Ector % (Auto) 4.0 Eos % (Auto) 0.0 Baso % (Auto) 1.5 H Lymph # (Auto) 0.48 L Ector # (Auto) 0.1 Eos # (Auto) 0.0 Baso # (Auto) 0.0 Abs Immat Gran (auto) 0.16 H Absolute Neuts (auto) 1.9 Absolute Nucleated RBC 0.000 Nucleated RBC % 0.0 Platelet Estimate Decreased % Immature Plt Fraction 4.2 Hypochromasia 1+ Anisocytosis 1+ Microcytosis 1+ Schistocytes None seen Sodium 131 L Potassium 3.4 Chloride 102 Carbon Dioxide 24 Anion Gap 5 BUN 22 H Creatinine 0.60 L Estim Creat Clear Calc 124 Estimated GFR > 60 Glucose 86 POC Capillary Glucose 75 80 Calcium 8.5 Phosphorus 3.4 Magnesium 1.8 Total Bilirubin 1.3 AST 27 ALT 19 Alkaline Phosphatase 80 Total Protein 7.0 Albumin 2.6 L Blood Type Antibody Screen Crossmatch Quality VTE Prophylaxis VTE prophylaxis: mechanical ordered
[2024-04-22 12:04] LABS: Glucose Point of Care 94 mg/dl (65-105)
--- NOTE | 2024-04-22 13:25 | PC.NURSE ---
Pt gave this RN permission to speak with daughter, Demetrice, over the phone and provide an update. Pt is A&Ox4. Demetrice's phone number is .
[2024-04-22] MEDS: FILGRASTIM-SNDZ 300 MCG/0.5 ML SYRINGE SUB-Q (16:00)
--- NOTE | 2024-04-22 16:16 | PC.NURSE ---
This RN gave report to receving RNYoni. The pt was transferred to U room 211 @ [id number].
--- NOTE | 2024-04-22 17:37 | PC.NURSE ---
This patient, Taiwo Selby Suzanne Sr., was received from ICU-3 on 04/22/24 at 1615. Patient/family oriented to unit policies and routines. Bedside report received from JACKSON Fuchs
[2024-04-22] MEDS: MELATONIN 5 MG TABLET PO (20:37)
[2024-04-23] VITALS (29 sets, daily range): BP systolic 108–120; BP diastolic 50–68; PULSE 70–103; RESP 16–22; TEMP 36.7–37.3; O2SAT 94–100
[2024-04-23] MEDS: ALBUTEROL SULFATE NEB 2.5 MG/3 ML INH INHALATION ×4 (02:13→20:28)
[2024-04-23] MEDS: ACETYLCYSTEINE 20% INHAL SOLN 800 MG/4 ML VIAL 200 MG INHALATION ×4 (02:13→20:28)
[2024-04-23] MEDS: CENTRAL LINE FLUSH 10 ML IV PUSH ×3 (05:34→23:24)
[2024-04-23] MEDS: LEVOTHYROXINE SODIUM 75 MCG TABLET PO (05:35)
[2024-04-23 05:50] LABS: Hematocrit 21.7 % (42.0-52.0); Immature Platelet Fraction Pct 4.7 % (0.9-11.2); Mean Corpuscular HGB Conc 31.8 g/dl (32-36); Mean Corpuscular Hemoglobin 28.5 pg (26-34); Mean Corpuscular Volume 89.7 fl (80-100); Mean Platelet Volume 10.7 fl (7.4-10.4); Platelet Count Result 67 k/mm3 (150-375); Red Blood Count 2.42 M/mm3 (4.6-6.20); Red Cell Distribution Width 16.6 % (11.5-14.5); White Blood Count 4.1 K/mm3 (4.5-10.0)
[2024-04-23 05:53] LABS: Alanine Aminotransferase 15 U/L (6-50); Albumin Level 2.5 g/dL (3.5-5.1); Alkaline Phosphatase 77 U/L (38-126); Anion Gap 3 mmol/L (4-12); Aspartate Amino Transferase 22 U/L (17-59); Bilirubin,Total 1.2 mg/dL (0.2-1.3); Blood Urea Nitrogen 19 mg/dL (9-20); Calcium 8.6 mg/dL (8.4-10.2); Carbon Dioxide 26 mmol/L (22-30); Chloride 104 mmol/L (98-107); Estimated CRCL calculation 123 ml/min; Estimated Glomerular Filt Rate > 60; Glucose 80 mg/dL (65-110); Potassium 3.2 mmol/L (3.4-5.0); Sodium 133 mmol/L (137-145)
[2024-04-23 06:12] LABS: Hemoglobin 6.9 g/dL (14.0-18.0)
[2024-04-23] MEDS: POTASSIUM CHLORIDE 20 MEQ PACKET (FOR LIQUID) 60 MEQ PO (09:10)
[2024-04-23] MEDS: PANTOPRAZOLE SODIUM IV 40 MG VIAL IV PUSH ×2 (09:11→20:16)
[2024-04-23] MEDS: AMIODARONE HCL 200 MG TABLET 400 MG PO (09:12)
[2024-04-23] MEDS: ACYCLOVIR 400 MG TABLET PO ×2 (09:12→16:31)
--- NOTE | 2024-04-23 09:14 | P.PNIM_ITS ---
Progress Note: A&P Assessment and Plan (1) Septic shock: Code(s): A41.9 - Sepsis, unspecified organism; R65.21 - Severe sepsis with septic shock Status: Acute Assessment and Plan: Septic shock likely related to pneumonia and neutropenic fever -Given Filgrastim 1dose in ICU and 2 doses 04/21 and 04/22 -Will give one more dose today -Continue cefepime -Discontinued vancomycin since MRSA screen is negative and cultures have been negative -S/P doxycycline for atypical coverage(04/16) for 5 days -procalcitonin was 4.6 and C-reactive protein was 18.1 -04/15: Blood cultures negative x2 -off Levophed -patient being diuresed and tolerating (2) Acute respiratory failure: Code(s): J96.00 - Acute respiratory failure, unspecified whether with hypoxia or hypercapnia Status: Acute Assessment and Plan: Acute respiratory failure secondary to suggestive heart failure and pneumonia. -04/17: Intubated -04/20: Extubated -as needed diuresis with Lasix -patient had significant secretions, will add 3% saline nebs -continue duo nebs -PT/OT, up in chair as tolerated -appreciate speech therapy evaluation, recommended modified barium swallow evaluation (3) Heart failure with reduced ejection fraction: Code(s): I50.20 - Unspecified systolic (congestive) heart failure Status: Acute Assessment and Plan: HFrEF with EF of 30-35% -cardiomyopathy -On Jardiance, metoprolol, Entresto, spironolactone at home -hold all these medications due to patient in septic shock, hypotension on vasopressors -continue Lasix IV -now off pressors -will discuss with Cardiology regarding restarting GDMT 06/29/2023 echocardiogram Summary 1. Definity contrast administered improved wall motion interpretation. 2. Left ventricular chamber dimension is severely enlarged. 3. Left ventricular systolic function is severely globally reduced, estimated at 30-35%. 4. The left ventricular diastolic function is abnormal. 5. E/e' 13 is mildly elevated. 6. Left atrial chamber dimension is severely enlarged. 7. There is mild mitral valve regurgitation. 8. There is trace tricuspid valve regurgitation. 9. No pulmonary hypertension, estimated pulmonary arterial systolic pressure is 28 mmHg. (4) Pneumonia: Code(s): J18.9 - Pneumonia, unspecified organism Status: Acute Assessment and Plan: -Continue cefepime (5) Paroxysmal atrial fibrillation with rapid ventricular response: Code(s): I48.0 - Paroxysmal atrial fibrillation Status: Acute Assessment and Plan: AFib RVR -S/P amiodarone bolus and infusion -currently on amiodarone 400 mg p.o. q.d. (6) Neutropenic fever: Code(s): D70.9 - Neutropenia, unspecified; R50.81 - Fever presenting with conditions classified elsewhere Status: Acute Assessment and Plan: Neutropenic fevers likely related to chemotherapy which was done about 3 weeks ago. Patient has not been feeling well for about a week, complained of generalized weakness low-grade fevers -Given Filgrastim 1 dose in ICU and 2 doses 04/21 and 04/22 -Will give one more dose today -s/p one dose of filgrastim -Heme-Onc consultation -neutropenic precautions (7) Pancytopenia: Code(s): D61.818 - Other pancytopenia Status: Acute Assessment and Plan: 04/20 transfuse 1 unit PRBC monitor count 04/21: Hemoglobin 6.8, will transfuse 1 unit of packed RBCs (8) MDS (myelodysplastic syndrome): Code(s): D46.9 - Myelodysplastic syndrome, unspecified Status: Acute Assessment and Plan: Patient was in evaluated by Oncology. Patient has Myelodysplastic syndrome with TP53 mutation status post bone marrow aspiration and biopsy done on February 17, 2024. Bone marrow biopsy showed blast count of 7-15%. 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 Patient was evaluated by heme Onc and recommendation is for palliative care's since patient has a disease with very poor prognosis. 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 His potassium is 3.2 replaced with a total of 80 mEq.Patient denies any complaints.I will give one dose of Filgrastim 480(300 is not available in pharmacy).I have given totally 3 doses and possibly received one dose in ICU. Review of Systems Review of Systems: Generalized weakness, Chills, fevers, shortness of breath. All systems reviewed & are unremarkable except as noted in HPI and below ROS unobtainable: Yes unobtainable due to endotracheal tube, unobtainable due to medical condition and unobtainable due to mental status Exam Narrative: General: Patient is awake, alert, in no acute distress HEENT:? Pupils equal and reactive, sclera is clear, Neck:? Supple Respiratory:? Coarse breath sounds at bases, cannula otherwise, adequate air entry Cardiac:? T regular rate and rhythm, S1-S2 is normal Abdomen:? Soft, nontender, protuberant, hypoactive bowel sounds Extremities:? Bilateral upper extremity edema, lower extremity edema bilaterally improved, palpable pedal pulses Neuro:? Patient is awake, alert, oriented, nonfocal, follows simple commands and answers to questions appropriately Skin:? Bruising noted Psych:? Flat affect, normal mentation Const: General: comfortable, no acute distress, well developed, alert, awake, ill appearing, average body habitus and edematous Nutritional Appearance: average body habitus and edematous Orientation/consciousness: patient oriented x3 Other: generalized pallor HENMT: Head: normal to inspection, normocephalic and atraumatic Ears: hearing grossly normal bilaterally Face/Nose/Sinus: normal facial exam Face and sinus: normal facial exam Eyes: General: appearance normal, both eyes and all related structures P upils: Equal, round and reactive pupils present EOM: EOMs intact bilaterally Neck: Neck: full ROM, no lymphadenopathy and no JVD Thyroid: thyroid normal Lymphatic: no lymphadenopathy noted Resp: Effort & Inspection: normal respiratory effort and able to speak in complete sentences Auscultation: clear to auscultation bilaterally Cardio: Jugular venous distension: no JVD Rate: regular rate Rhythm: regular rhythm Heart sounds: S1 normal heart sound present and S2 normal heart sound present : General: Yes deferred Skin: Rashes: no rashes Wounds: no wounds Neuro: General: patient oriented x3, CN's II-XI intact bilaterally and Unable to assess gait Cranial nerves: Yes CN's II-XII intact bilaterally and Yes Equal, round and reactive pupils present Cognition (Neuro): normal cognition Speech: normal speech Gait exam (Neuro): Unable to assess gait Motor exam (neuro): 5/5 motor strength present throughout Extrem: General: normal to inspection, full ROM, no joint enlargement and no pedal edema Other: bilateral lower extremity edema Objective Data Vital Signs Vital Signs: Vital Signs - 24 hr 04/22/24 09:17 04/22/24 10:00 04/22/24 10:00 Temperature Pulse Rate 81 81 81 Respiratory Rate 26 H Blood Pressure 109/82 119/63 Pulse Oximetry Oxygen Delivery 04/22/24 12:00 04/22/24 12:00 04/22/24 12:00 Temperature 98.9 F Pulse Rate 76 78 Respiratory Rate 26 H Blood Pressure 117/63 Pulse Oximetry 97 Oxygen Delivery Room Air 04/22/24 13:39 04/22/24 13:42 04/22/24 13:53 Temperature Pulse Rate 77 75 Respiratory Rate 18 26 H Blood Pressure Pulse Oximetry Oxygen Delivery Room Air 04/22/24 14:00 04/22/24 14:00 04/22/24 14:08 Temperature Pulse Rate 85 85 Respiratory Rate 25 H Blood Pressure 132/86 Pulse Oximetry 97 Oxygen Delivery Room Air 04/22/24 16:00 04/22/24 18:00 04/22/24 18:00 Temperature Pulse Rate 84 84 Respiratory Rate Blood Pressure Pulse Oximetry Oxygen Delivery Room Air 04/22/24 20:00 04/22/24 20:00 04/22/24 20:40 Temperature 99.2 F Pulse Rate 90 85 77 Respiratory Rate 18 20 Blood Pressure 123/61 Pulse Oximetry 100 Oxygen Delivery 04/22/24 20:40 04/22/24 20:56 04/22/24 22:00 Temperature Pulse Rate 78 93 Respiratory Rate 20 Blood Pressure Pulse Oximetry Oxygen Delivery Room Air 04/23/24 00:00 04/23/24 00:00 04/23/24 00:00 Temperature 98.8 F Pulse Rate 88 88 Respiratory Rate 19 Blood Pressure 111/50 L Pulse Oximetry 100 Oxygen Delivery Room Air 04/23/24 02:00 04/23/24 02:14 04/23/24 02:27 Temperature Pulse Rate 84 70 74 Respiratory Rate 20 20 Blood Pressure Pulse Oximetry Oxygen Delivery 04/23/24 04:00 04/23/24 04:00 04/23/24 04:10 Temperature 98.1 F Pulse Rate 103 H 83 Respiratory Rate 19 Blood Pressure 108/51 L Pulse Oximetry 97 Oxygen Delivery Room Air 04/23/24 06:00 04/23/24 07:55 Temperature 98.1 F Pulse Rate 81 79 Respiratory Rate 22 H Blood Pressure 110/52 L Pulse Oximetry 96 Oxygen Delivery Intake/Output Intake/Output: Intake & Output 04/20/24 04/21/24 04/22/24 04/23/24 23:59 23:59 23:59 23:59 Intake Total 2643.7 1076.9 602.2 600 Output Total 3450 3175 1900 900 Balance -806.3 -2098.1 -1297.8 -300 Meds/Results Medications: Active Medications Generic Name Dose Route Start Last Admin Trade Name Freq PRN Reason Stop Dose Admin Acetaminophen 650 mg 04/19/24 14:17 Acetaminophen Elixir 325 Mg/10.15 Ml Udc FEED TUBE Q6H PRN Mild Pain (1-3) or Fever Acetylcysteine 200 mg 04/21/24 20:00 04/23/24 02:13 Acetylcysteine 20% Inhal Soln 800 Mg/4 Ml Vial INHALATION 200 mg Q6HRT KAVON Administration Acyclovir 400 mg 04/16/24 09:00 04/22/24 15:59 Acyclovir 400 Mg Tablet PO 400 mg BID KAVON Administration Albuterol 2.5 mg 04/21/24 20:00 04/23/24 02:13 Albuterol Sulfate Neb 2.5 Mg/3 Ml Inh INHALATION 2.5 mg Q6HRT KAVON Administration Albuterol/Ipratropium 3 ml 04/18/24 08:24 Ipratropium 0.5 Mg/Albuterol Sulfate 2.5 Mg Ampul.Neb 3 Ml NEBULIZE Q6HRT PRN Wheezing Amiodarone HCl 400 mg 04/19/24 13:35 04/22/24 08:06 Amiodarone Hcl 200 Mg Tablet PO 400 mg DAILY@0800 KAVON Administration Artificial Tears 1 drop 04/21/24 10:12 04/22/24 08:04 Artificial Tears Ophth Soln 15 Ml Bottle EACH EYE 1 drop QID PRN Administration Dry Eye(s) Dextrose 12.5 gm 12/16/24 12:00 Dextrose 50% 25 Gm/50 Ml Syringe IV PUSH PRN PRN Hypoglycemia Protocol Glucagon 1 mg 04/17/24 12:00 Glucagon For Inj 1 Mg Vial IM PRN PRN Hypoglycemia Protocol Glucose 15 gm 04/17/24 12:00 Glucose Oral Gel 15 Gm Of Glucse In 37.5 Gm Tube PO PRN PRN Hypoglycemia Protocol Cefepime HCl 2 gm in 50 mls @ 100 mls/hr 04/16/24 08:00 04/23/24 00:34 Maxipime 2 Gm/Ns 50 Ml IVPB 04/25/24 16:29 Infused Q8H KAVON Infusion Dextrose 1,000 mls @ 100 mls/hr 04/17/24 12:00 Dextrose 5% 1,000 Ml IVPB PRN PRN Hypoglycemia Protocol Sodium Chloride 250 mls @ 30 mls/hr 04/23/24 06:23 Normal Saline Iv IV CONT 04/23/24 14:42 .Q8H20M STA Levothyroxine Sodium 75 mcg 04/17/24 06:30 04/23/24 05:35 Levothyroxine Sodium 75 Mcg Tablet PO 75 mcg DAILY@0630 KAVON Administration Melatonin 5 mg 04/22/24 21:00 04/22/24 20:37 Melatonin 5 Mg Tablet PO 5 mg HS KAVON Administration Metoprolol Tartrate 5 mg 04/17/24 10:27 04/21/24 14:31 Metoprolol Tartrate Inj 5 Mg/5 Ml Vial IV PUSH 5 mg Q6H PRN Administration Tachyarrhythmias Morphine Sulfate 2 mg 04/20/24 16:45 04/22/24 23:50 Morphine Sulfate (*Crx) 2 Mg/Ml Inj IV PUSH 2 mg Q2H PRN Administration Pain Rated 7-10 Pantoprazole Sodium 40 mg 04/16/24 21:00 04/22/24 20:37 Pantoprazole Sodium Iv 40 Mg Vial IV PUSH 40 mg Q12H KAVON Administration Polyethylene Glycol 17 gm 04/22/24 09:00 04/22/24 08:06 Polyethylene Glycol 3350 17 Gm Powd.Pack PO 17 gm QAM KAVON Administration Senna/Docusate Sodium 1 tab 04/21/24 21:00 04/22/24 20:59 Senna/Docusate Sodium Tablet PO Not Given HS KAVON Sodium Chloride 10 ml 04/18/24 14:00 04/23/24 05:34 Central Line Flush IV PUSH 10 ml Q8HR KAVON Administration Sodium Chloride 10 ml 04/18/24 11:52 Central Line Flush IV PUSH PRN PRN with TPN bag changes Sodium Chloride 20 ml 04/18/24 11:52 Central Line Flush IV PUSH PRN PRN after blood draws Radiology Results: ITS Impressions Modified Barium Swallow 04/21/24 16:00 IMPRESSION: Patient tolerated regular consistency oral feedings in the upright position. Please correlate with speech pathologist findings and specific feeding recommendations. Chest X-Ray 04/22/24 06:17 IMPRESSION: 1. Stable airspace opacities in left lower lung zone, consistent with atelectasis versus pneumonia. 2. Stable small left pleural effusion. 3. Cardiomegaly. Labs Labs: Laboratory Results - last 24 hr 04/20/24 04/22/24 04/23/24 06:37 12:02 05:30 WBC 4.1 L RBC 2.42 L Hgb 6.9 L* Hct 21.7 L MCV 89.7 MCH 28.5 MCHC 31.8 L RDW 16.6 H Plt Count 67 L MPV 10.7 H % Immature Plt Fraction 4.7 Sodium 133 L Potassium 3.2 L Chloride 104 Carbon Dioxide 26 Anion Gap 3 L BUN 19 Creatinine 0.60 L Estim Creat Clear Calc 123 Estimated GFR > 60 Glucose 80 POC Capillary Glucose 94 Calcium 8.6 Total Bilirubin 1.2 AST 22 ALT 15 Alkaline Phosphatase 77 Total Protein 7.0 Albumin 2.5 L Blood Type A Positive Antibody Screen Negative Crossmatch See Detail Quality VTE Prophylaxis VTE prophylaxis: mechanical ordered Hospitalist [facility] Advance Care Plan I have confirmed that the patient's Advanced Care Plan is present, code status is documented, or surrogate decision maker is listed in patient medical record.: Yes Medication Reconciliation I have utilized all available resources to obtain, update and review the patients current medications (includes all prescriptions, OTC, herbals, cannabis, and nutritional supplements).: Yes
[2024-04-23] MEDS: CEFEPIME 2 GM/NS 50 ML 2 GM/50 ML BAG IVPB ×3 (09:17→23:24)
[2024-04-23 09:43] LABS: Magnesium 1.9 mg/dL (1.6-2.3)
[2024-04-23] MEDS: SODIUM CHLORIDE 0.9% IV 250 ML 30 ML IV CONT (10:22)
[2024-04-23] MEDS: TUBING, BLOOD PLUM PUMP TUBING 1 EACH XX (10:22)
[2024-04-23 14:22] LABS: Hematocrit 24.9 % (42.0-52.0); Hemoglobin 8.2 g/dL (14.0-18.0)
[2024-04-23] MEDS: ALTEPLASE 2 MG VIAL (CATHFLO) IV PUSH (16:19)
[2024-04-23] MEDS: FILGRASTIM-SNDZ 480 MCG/0.8 ML SYRINGE SUB-Q (16:31)
[2024-04-23] MEDS: MORPHINE SULFATE (*CRX) 2 MG/ML INJ IV PUSH (16:31)
[2024-04-23] MEDS: MELATONIN 5 MG TABLET PO (20:15)
[2024-04-23] MEDS: SENNA/DOCUSATE SODIUM TABLET 1 TAB PO (20:15)
[2024-04-23 21:19] LABS: Potassium 3.9 mmol/L (3.4-5.0)
[2024-04-24] VITALS (22 sets, daily range): BP systolic 102–134; BP diastolic 55–67; PULSE 77–129; RESP 18–30; TEMP 36.6–36.9; O2SAT 94–100
--- NOTE | 2024-04-24 00:07 | PC.NURSE ---
no documented void since garcia removal. patient states he voided, he does not need to void, he will void, and leave him alone. bladder scanned 227ml. Dr. Gaviria notified. NNO.
--- NOTE | 2024-04-24 00:17 | PC.NURSE ---
voided 300ml
[2024-04-24 05:12] LABS: Hematocrit 23.4 % (42.0-52.0); Hemoglobin 7.7 g/dL (14.0-18.0); Mean Corpuscular HGB Conc 32.9 g/dl (32-36); Mean Corpuscular Hemoglobin 29.3 pg (26-34); Mean Platelet Volume 10.7 fl (7.4-10.4); Platelet Count Result 72 k/mm3 (150-375); Red Blood Count 2.63 M/mm3 (4.6-6.20); Red Cell Distribution Width 16.4 % (11.5-14.5); White Blood Count 6.4 K/mm3 (4.5-10.0)
[2024-04-24 05:24] LABS: Alanine Aminotransferase 15 U/L (6-50); Albumin Level 2.6 g/dL (3.5-5.1); Alkaline Phosphatase 88 U/L (38-126); Anion Gap 5 mmol/L (4-12); Aspartate Amino Transferase 22 U/L (17-59); Bilirubin,Total 1.2 mg/dL (0.2-1.3); Blood Urea Nitrogen 17 mg/dL (9-20); Calcium 8.8 mg/dL (8.4-10.2); Carbon Dioxide 22 mmol/L (22-30); Chloride 104 mmol/L (98-107); Estimated CRCL calculation 145 ml/min; Estimated Glomerular Filt Rate > 60; Glucose 69 mg/dL (65-110); Potassium 3.8 mmol/L (3.4-5.0); Sodium 131 mmol/L (137-145)
[2024-04-24] MEDS: LEVOTHYROXINE SODIUM 75 MCG TABLET PO (05:35)
[2024-04-24] MEDS: CENTRAL LINE FLUSH 10 ML IV PUSH ×3 (05:35→22:50)
[2024-04-24] MEDS: ALBUTEROL SULFATE NEB 2.5 MG/3 ML INH INHALATION ×3 (07:44→20:49)
[2024-04-24] MEDS: ACETYLCYSTEINE 20% INHAL SOLN 800 MG/4 ML VIAL 200 MG INHALATION ×3 (07:45→20:49)
[2024-04-24] MEDS: CEFEPIME 2 GM/NS 50 ML 2 GM/50 ML BAG IVPB ×2 (08:57→15:47)
[2024-04-24] MEDS: AMIODARONE HCL 200 MG TABLET 400 MG PO (09:00)
[2024-04-24] MEDS: PANTOPRAZOLE SODIUM IV 40 MG VIAL IV PUSH ×2 (09:01→21:39)
[2024-04-24] MEDS: ACYCLOVIR 400 MG TABLET PO ×2 (09:01→15:47)
--- NOTE | 2024-04-24 15:00 | PCPTNOTE ---
Patient refused treatment this session due to 9/10 bilateral leg pain. RN notified.
[2024-04-24] MEDS: MORPHINE SULFATE (*CRX) 2 MG/ML INJ IV PUSH ×2 (15:48→21:40)
--- NOTE | 2024-04-24 17:22 | P.PNIM_ITS ---
Progress Note: A&P Assessment and Plan (1) Septic shock: Code(s): A41.9 - Sepsis, unspecified organism; R65.21 - Severe sepsis with septic shock Status: Acute Assessment and Plan: Septic shock likely related to pneumonia and neutropenic fever -Given Filgrastim 1dose in ICU and 2 doses 04/21 and 04/22 -Will give one more dose today -Continue cefepime -Discontinued vancomycin since MRSA screen is negative and cultures have been negative - watch cbc - watch clinical picture - oxygen supportively - watch bps (2) Acute respiratory failure: Code(s): J96.00 - Acute respiratory failure, unspecified whether with hypoxia or hypercapnia Status: Acute Assessment and Plan: Acute respiratory failure secondary to suggestive heart failure and pneumonia. -04/17: Intubated -04/20: Extubated -patient had significant secretions, will add 3% saline nebs -continue duo nebs -PT/OT, up in chair as tolerated -order CXR tonite - order BMP and BNP in AM - continue iv lasix to diuresis pt (3) Heart failure with reduced ejection fraction: Code(s): I50.20 - Unspecified systolic (congestive) heart failure Status: Acute Assessment and Plan: HFrEF with EF of 30-35% -cardiomyopathy -On Jardiance, metoprolol, Entresto, spironolactone at home -hold all these medications due to patient in septic shock, hypotension on vasopressors -continue Lasix IV -now off pressors -will discuss with Cardiology regarding restarting GDMT 06/29/2023 echocardiogram Summary 1. Definity contrast administered improved wall motion interpretation. 2. Left ventricular chamber dimension is severely enlarged. 3. Left ventricular systolic function is severely globally reduced, estimated at 30-35%. 4. The left ventricular diastolic function is abnormal. 5. E/e' 13 is mildly elevated. 6. Left atrial chamber dimension is severely enlarged. 7. There is mild mitral valve regurgitation. 8. There is trace tricuspid valve regurgitation. 9. No pulmonary hypertension, estimated pulmonary arterial systolic pressure is 28 mmHg. (4) Pneumonia: Code(s): J18.9 - Pneumonia, unspecified organism Status: Acute Assessment and Plan: -Continue cefepime (5) Paroxysmal atrial fibrillation with rapid ventricular response: Code(s): I48.0 - Paroxysmal atrial fibrillation Status: Acute Assessment and Plan: AFib RVR -S/P amiodarone bolus and infusion -currently on amiodarone 400 mg p.o. q.d. (6) Neutropenic fever: Code(s): D70.9 - Neutropenia, unspecified; R50.81 - Fever presenting with conditions cl assified elsewhere Status: Acute Assessment and Plan: Neutropenic fevers likely related to chemotherapy which was done about 3 weeks ago. Patient has not been feeling well for about a week, complained of generalized weakness low-grade fevers -Given Filgrastim 1 dose in ICU and 2 doses 04/21 and 04/22 -Will give one more dose today -s/p one dose of filgrastim -Heme-Onc consultation -neutropenic precautions (7) Pancytopenia: Code(s): D61.818 - Other pancytopenia Status: Acute Assessment and Plan: 04/20 transfuse 1 unit PRBC monitor count 04/21: Hemoglobin 6.8, will transfuse 1 unit of packed RBCs 04/23: hb is 7.7 pt is symptomatic with SOB will transfuse more unit tonight (8) MDS (myelodysplastic syndrome): Code(s): D46.9 - Myelodysplastic syndrome, unspecified Status: Acute Assessment and Plan: Patient was in evaluated by Oncology. Patient has Myelodysplastic syndrome with TP53 mutation status post bone marrow aspiration and biopsy done on February 17, 2024. Bone marrow biopsy showed blast count of 7-15%. 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 Patient was evaluated by heme Onc and recommendation is for palliative care's since patient has a disease with very poor prognosis. aware of poor prognosis palliative team consulted (9) Leukemia: Code(s): C95.90 - Leukemia, unspecified not having achieved remission Status: Acute Assessment and Plan: see above (10) Rheumatoid arthritis: Code(s): M06.9 - Rheumatoid arthritis, unspecified Status: Acute Assessment and Plan: chronic history Subjective Date/time seen: 04/24/24 17:22 Interval history: Patient has a hemoglobin of 6.9, electric range assembler started 1 unit packed RBC transfusion. His potassium is 3.2 replaced with a total of 80 mEq.Patient denies any complaints.I will give one dose of Filgrastim 480(300 is not available in pharmacy).I have given totally 3 doses and possibly received one dose in ICU. Pt admitted for septic shock, pancytopenia, acute respiratory failure, pt still sob, asking to speak to palliative care team Review of Systems Review of Systems: Pt still SOB on oxygen Exam Narrative: General: Patient looks tired weak unwell on oxygen HEENT:? Pupils equal and reactive, sclera is clear, Neck:? Supple Respiratory:? Coarse breath sounds at bases Cardiac:? T regular rate and rhythm, S1-S2 is normal Abdomen:? Soft, nontender, protuberant, hypoactive bowel sounds Extremities:? Bilateral upper extremity edema, lower extremity edema bilaterally improved, palpable pedal pulses Neuro:? Patient is awake, alert, oriented, nonfocal, follows simple commands and answers to questions appropriately Skin:? Bruising noted Psych:? Flat affect, normal mentation Objective Data Vital Signs Vital Signs: Vital Signs - 24 hr 04/23/24 17:31 04/23/24 17:56 04/23/24 20:00 Temperature 37.2 C 36.8 C Pulse Rate 87 83 Respiratory Rate 18 Blood Pressure 119/58 L Pulse Oximetry 98 Oxygen Delivery Oxygen Flow Rate 04/23/24 20:00 04/23/24 20:00 04/23/24 20:28 Temperature Pulse Rate 82 Respiratory Rate Blood Pressure Pulse Oximetry 94 Oxygen Delivery Room Air Nasal Cannula Oxygen Flow Rate 2 04/23/24 20:28 04/23/24 20:34 04/23/24 22:00 Temperature Pulse Rate 85 80 83 Respiratory Rate 16 16 Blood Pressure Pulse Oximetry Oxygen Delivery Oxygen Flow Rate 04/24/24 00:00 04/24/24 00:00 04/24/24 00:00 Temperature 36.6 C Pulse Rate 85 81 Respiratory Rate 18 Blood Pressure 123/55 L Pulse Oximetry 100 Oxygen Delivery Room Air Oxygen Flow Rate 04/24/24 02:14 04/24/24 04:00 04/24/24 04:00 Temperature Pulse Rate 79 82 Respiratory Rate Blood Pressure Pulse Oximetry Oxygen Delivery Room Air Oxygen Flow Rate 04/24/24 04:00 04/24/24 06:00 04/24/24 07:47 Temperature 36.7 C Pulse Rate 77 78 Respiratory Rate 19 Blood Pressure 125/58 L Pulse Oximetry 98 95 Oxygen Delivery Nasal Cannula Oxygen Flow Rate 2 04/24/24 07:47 04/24/24 08:00 04/24/24 08:00 Temperature 36.6 C Pulse Rate 79 90 87 Respiratory Rate 20 20 Blood Pressure 134/67 Pulse Oximetry 95 Oxygen Delivery Oxygen Flow Rate 04/24/24 09:00 04/24/24 10:00 04/24/24 12:00 Temperature 36.6 C Pulse Rate 86 84 83 Respiratory Rate 24 H Blood Pressure 131/61 Pulse Oximetry 99 Oxygen Delivery Oxygen Flow Rate 04/24/24 12:00 04/24/24 14:00 04/24/24 14:00 Temperature Pulse Rate 92 111 H Respiratory Rate 20 Blood Pressure Pulse Oximetry 97 Oxygen Delivery Room Air Oxygen Flow Rate 04/24/24 14:00 04/24/24 14:29 04/24/24 16:00 Temperature 36.6 C Pulse Rate 125 H 103 H 110 H Respiratory Rate 20 28 H Blood Pressure 119/59 L Pulse Oximetry 94 Oxygen Delivery Oxygen Flow Rate Intake/Output Intake/Output: Intake & Output 04/21/24 04/22/24 04/23/24 04/24/24 23:59 23:59 23:59 23:59 Intake Total 1076.9 602.2 1100 690 Output Total 3175 1900 1300 600 Balance -2098.1 -1297.8 -200 90 Meds/Results Medications: Active Medications Generic Name Dose Route Start Last Admin Trade Name Freq PRN Reason Stop Dose Admin Acetaminophen 650 mg 04/19/24 14:17 Acetaminophen Elixir 325 Mg/10.15 Ml Udc FEED TUBE Q6H PRN Mild Pain (1-3) or Fever Acetylcysteine 200 mg 04/21/24 20:00 04/24/24 13:59 Acetylcysteine 20% Inhal Soln 800 Mg/4 Ml Vial INHALATION 200 mg Q6HRT KAVON Administration Acyclovir 400 mg 04/16/24 09:00 04/24/24 15:47 Acyclovir 400 Mg Tablet PO 400 mg BID KAVON Administration Albuterol 2.5 mg 04/21/24 20:00 04/24/24 13:58 Albuterol Sulfate Neb 2.5 Mg/3 Ml Inh INHALATION 2.5 mg Q6HRT KAVON Administration Albuterol/Ipratropium 3 ml 04/18/24 08:24 Ipratropium 0.5 Mg/Albuterol Sulfate 2.5 Mg Ampul.Neb 3 Ml NEBULIZE Q6HRT PRN Wheezing Alteplase, Recombinant 2 mg 04/23/24 14:20 04/23/24 16:19 Alteplase 2 Mg Vial (Cathflo) IV PUSH 2 mg ONCE PRN Administration Line Occlusion Amiodarone HCl 400 mg 04/19/24 13:35 04/24/24 09:00 Amiodarone Hcl 200 Mg Tablet PO 400 mg DAILY@0800 KAVON Administration Artificial Tears 1 drop 04/21/24 10:12 04/22/24 08:04 Artificial Tears Ophth Soln 15 Ml Bottle EACH EYE 1 drop QID PRN Administration Dry Eye(s) Dextrose 12.5 gm 04/17/24 12:00 Dextrose 50% 25 Gm/50 Ml Syringe IV PUSH PRN PRN Hypoglycemia Protocol Glucagon 1 mg 04/17/24 12:00 Glucagon For Inj 1 Mg Vial IM PRN PRN Hypoglycemia Protocol Glucose 15 gm 04/17/24 12:00 Glucose Oral Gel 15 Gm Of Glucse In 37.5 Gm Tube PO PRN PRN Hypoglycemia Protocol Cefepime HCl 2 gm in 50 mls @ 100 mls/hr 04/16/24 08:00 04/24/24 15:47 Maxipime 2 Gm/Ns 50 Ml IVPB 04/25/24 16:29 100 mls/hr Q8H KAVON Administration Dextrose 1,000 mls @ 100 mls/hr 04/17/24 12:00 Dextrose 5% 1,000 Ml IVPB PRN PRN Hypoglycemia Protocol Levothyroxine Sodium 75 mcg 04/17/24 06:30 04/24/24 05:35 Levothyroxine Sodium 75 Mcg Tablet PO 75 mcg DAILY@0630 KAVON Administration Melatonin 5 mg 04/22/24 21:00 04/23/24 20:15 Melatonin 5 Mg Tablet PO 5 mg HS KAVON Administration Metoprolol Tartrate 5 mg 04/17/24 10:27 04/21/24 14:31 Metoprolol Tartrate Inj 5 Mg/5 Ml Vial IV PUSH 5 mg Q6H PRN Administration Tachyarrhythmias Morphine Sulfate 2 mg 04/20/24 16:45 04/24/24 15:48 Morphine Sulfate (*Crx) 2 Mg/Ml Inj IV PUSH 2 mg Q2H PRN Administration Pain Rated 7-10 Pantoprazole Sodium 40 mg 04/16/24 21:00 04/24/24 09:01 Pantoprazole Sodium Iv 40 Mg Vial IV PUSH 40 mg Q12H KAVON Administration Polyethylene Glycol 17 gm 04/22/24 09:00 04/24/24 10:31 Polyethylene Glycol 3350 17 Gm Powd.Pack PO Not Given QAM KAVON Senna/Docusate Sodium 1 tab 04/21/24 21:00 04/23/24 20:15 Senna/Docusate Sodium Tablet PO 1 tab HS KAVON Administration Sodium Chloride 10 ml 04/18/24 14:00 04/24/24 14:01 Central Line Flush IV PUSH 10 ml Q8HR KAVON Administration Sodium Chloride 10 ml 04/18/24 11:52 Central Line Flush IV PUSH PRN PRN with TPN bag changes Sodium Chloride 20 ml 04/18/24 11:52 Central Line Flush IV PUSH PRN PRN after blood draws Radiology Results: ITS Impressions Modified Barium Swallow 04/21/24 16:00 IMPRESSION: Patient tolerated regular consistency oral feedings in the upright position. Please correlate with speech pathologist findings and specific feeding recommendations. Chest X-Ray 04/24/24 13:04 IMPRESSION: Left basilar atelectasis versus pneumonia with pleural effusion. Cardiomegaly with cardiac decompensation. Pulmonary edema is not excluded. Labs Labs: Laboratory Results - last 24 hr 04/23/24 04/24/24 14:15 04:44 WBC 6.4 RBC 2.63 L Hgb 7.7 L Hct 23.4 L MCV 89.0 MCH 29.3 MCHC 32.9 RDW 16.4 H Plt Count 72 L MPV 10.7 H Sodium 131 L Potassium 3.9 3.8 Chloride 104 Carbon Dioxide 22 Anion Gap 5 BUN 17 Creatinine 0.50 L Estim Creat Clear Calc 145 Estimated GFR > 60 Glucose 69 Calcium 8.8 Total Bilirubin 1.2 AST 22 ALT 15 Alkaline Phosphatase 88 Total Protein 7.0 Albumin 2.6 L
[2024-04-24] MEDS: MELATONIN 5 MG TABLET PO (21:39)
[2024-04-24] MEDS: traZODone HCL 50 MG TABLET PO (21:39)
[2024-04-24] MEDS: ALPRAZolam (*CRX) 0.5 MG TABLET PO (21:40)
[2024-04-24] MEDS: TUBING, BLOOD PLUM PUMP TUBING 1 EACH XX (22:50)
[2024-04-24] MEDS: [UNRECOGNIZED DRUG - OTHER] 1 EACH XX (22:50)
[2024-04-24] MEDS: METOPROLOL TARTRATE INJ 5 MG/5 ML VIAL IV PUSH (22:51)
[2024-04-25] VITALS (19 sets, daily range): BP systolic 107–119; BP diastolic 54–70; PULSE 84–111; RESP 19–27; TEMP 35.9–36.9; O2SAT 92–100
[2024-04-25] MEDS: CEFEPIME 2 GM/NS 50 ML 2 GM/50 ML BAG IVPB ×3 (00:26→15:17)
[2024-04-25] MEDS: ALBUTEROL SULFATE NEB 2.5 MG/3 ML INH INHALATION ×3 (01:34→13:16)
[2024-04-25] MEDS: CENTRAL LINE FLUSH 10 ML IV PUSH ×2 (05:31→14:00)
[2024-04-25] MEDS: LEVOTHYROXINE SODIUM 75 MCG TABLET PO (05:31)
[2024-04-25] MEDS: MORPHINE SULFATE (*CRX) 2 MG/ML INJ IV PUSH (05:31)
[2024-04-25] MEDS: [UNRECOGNIZED DRUG - OTHER] 1 EACH XX (05:32)
[2024-04-25 05:48] LABS: Hematocrit 25.7 % (42.0-52.0); Hemoglobin 8.5 g/dL (14.0-18.0); Mean Corpuscular HGB Conc 33.1 g/dl (32-36); Mean Corpuscular Hemoglobin 29.5 pg (26-34); Mean Corpuscular Volume 89.2 fl (80-100); Mean Platelet Volume 10.8 fl (7.4-10.4); Platelet Count Result 68 k/mm3 (150-375); Red Blood Count 2.88 M/mm3 (4.6-6.20); Red Cell Distribution Width 16.2 % (11.5-14.5); White Blood Count 3.9 K/mm3 (4.5-10.0)
[2024-04-25 06:02] LABS: Anion Gap 2 mmol/L (4-12); Blood Urea Nitrogen 14 mg/dL (9-20); Calcium 8.6 mg/dL (8.4-10.2); Carbon Dioxide 24 mmol/L (22-30); Chloride 104 mmol/L (98-107); Estimated CRCL calculation 142 ml/min; Estimated Glomerular Filt Rate > 60; Glucose 90 mg/dL (65-110); Potassium 3.5 mmol/L (3.4-5.0); Sodium 130 mmol/L (137-145)
[2024-04-25 06:07] LABS: NT Pro B Type Natriuretic Pept 16100 pg/mL (19.9-100)
[2024-04-25] MEDS: ACETYLCYSTEINE 20% INHAL SOLN 800 MG/4 ML VIAL 200 MG INHALATION ×2 (07:54→13:16)
[2024-04-25] MEDS: AMIODARONE HCL 200 MG TABLET 400 MG PO (08:37)
[2024-04-25] MEDS: ACYCLOVIR 400 MG TABLET PO (08:37)
[2024-04-25] MEDS: FUROSEMIDE INJ 40 MG/4 ML VIAL IV PUSH (08:38)
[2024-04-25] MEDS: METOPROLOL SUCCINATE EXT REL 50 MG TABCR PO (08:38)
[2024-04-25] MEDS: PANTOPRAZOLE SODIUM IV 40 MG VIAL IV PUSH (08:39)
[2024-04-25] MEDS: FLUoxetine HCL 20 MG CAPSULE PO (09:23)
--- NOTE | 2024-04-25 13:51 | P.DS_ITS ---
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 Patient has started chemotherapy treatment. Patient presents to the emergency room with generalized weakness, difficulty breathing, patient was brought via EMS he was tachypneic, upon arrival. Patient has been having chills, had a fever in the emergency room. Preliminary workup was significant for hemoglobin of 5 hematocrit of 14, platelet count 02682 WBC count 0.5. Patient was started on blood transfusion and admitted to intensive care unit. patient was managed for septic shock from pneumonia and neutropenic fever and pancytopenia. Patient has leukemia and follows with [facility] for treatment. Oncology evaluated and recommended palliative care, however patient and family stated they will continue follow up with their primary oncology at [facility]. leukopenia now resolved, Hb 8.5 s/p 1 unit pRBC. Plts improving 68 today. also treated for pneumonia and has completed antibiotics today. Will follow up with oncology at [facility]. Cardiology was consutled for Afib RVR and patient was placed on Amiodarone 400mg daily and noted they will follow up outpatient for possible anticoagulation since he just turned 64 while in the hospital. continue Amiodaone and lasix 40mg bid. continue other home meds. Continue other home meds, discharged on Lasix 40mg bid. F/u with PCP 3-5 days, follow-up with Cardiology as instructed. To follow up with primary Oncology at [facility]. Assessment and Plan (1) Septic shock: Code(s): A41.9 - Sepsis, unspecified organism; R65.21 - Severe sepsis with septic shock Status: Acute Assessment and Plan: Septic shock likely related to pneumonia and neutropenic fever -Given Filgrastim 1dose in ICU and 2 doses 04/21 and 04/22 -Will give one more dose today -Continue cefepime -Discontinued vancomycin since MRSA screen is negative and cultures have been negative - watch cbc - watch clinical picture - oxygen supportively - watch bps (2) Acute respiratory failure: Code(s): J96.00 - Acute respiratory failure, unspecified whether with hypoxia or hypercapnia Status: Acute Assessment and Plan: Acute respiratory failure secondary to suggestive heart failure and pneumonia. -04/17: Intubated -04/20: Extubated -patient had significant secretions, will add 3% saline nebs -continue duo nebs -PT/OT, up in chair as tolerated -order CXR tonite - order BMP and BNP in AM - continue iv lasix to diuresis pt (3) Heart failure with reduced ejection fraction: Code(s): I50.20 - Unspecified systolic (congestive) heart failure Status: Acute Assessment and Plan: HFrEF with EF of 30-35% -cardiomyopathy -On Jardiance, metoprolol, Entresto, spironolactone at home -hold all these medications due to patient in septic shock, hypotension on vasopressors -continue Lasix IV -now off pressors -will discuss with Cardiology regarding restarting GDMT 06/29/2023 echocardiogram Summary 1. Definity contrast administered improved wall motion interpretation. 2. Left ventricular chamber dimension is severely enlarged. 3. Left ventricular systolic function is severely globally reduced, estimated at 30-35%. 4. The left ventricular diastolic function is abnormal. 5. E/e' 13 is mildly elevated. 6. Left atrial chamber dimension is severely enlarged. 7. There is mild mitral valve regurgitation. 8. There is trace tricuspid valve regurgitation. 9. No pulmonary hypertension, estimated pulmonary arterial systolic pressure is 28 mmHg. (4) Pneumonia: Code(s): J18.9 - Pneumonia, unspecified organism Status: Acute Assessment and Plan: -Continue cefepime (5) Paroxysmal atrial fibrillation with rapid ventricular response: Code(s): I48.0 - Paroxysmal atrial fibrillation Status: Acute Assessment and Plan: AFib RVR -S/P amiodarone bolus and infusion -currently on amiodarone 400 mg p.o. q.d. (6) Neutropenic fever: Code(s): D70.9 - Neutropenia, unspecified; R50.81 - Fever presenting with conditions classified elsewhere Status: Acute Assessment and Plan: Neutropenic fevers likely related to chemotherapy which was done about 3 weeks ago. Patient has not been feeling well for about a week, complained of generalized weakness low-grade fevers -Given Filgrastim 1 dose in ICU and 2 doses 04/21 and 04/22 -Will give one more dose today -s/p one dose of filgrastim -Heme-Onc consultation -neutropenic precautions (7) Pancytopenia: Code(s): D61.818 - Other pancytopenia Status: Acute Assessment and Plan: 04/20 transfuse 1 unit PRBC monitor count 04/21: Hemoglobin 6.8, will transfuse 1 unit of packed RBCs 04/23: hb is 7.7 pt is symptomatic with SOB will transfuse more unit tonight (8) MDS (myelodysplastic syndrome): Code(s): D46.9 - Myelodysplastic syndrome, unspecified Status: Acute Assessment and Plan: Patient was in evaluated by Oncology. Patient has Myelodysplastic syndrome with TP53 mutation status post bone marrow aspiration and biopsy done on February 17, 2024. Bone marrow biopsy showed blast count of 7-15%. 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 Patient was evaluated by heme Onc and recommendation is for palliative care's since patient has a disease with very poor prognosis. aware of poor prognosis palliative team consulted (9) Leukemia: Code(s): C95.90 - Leukemia, unspecified not having achieved remission Status: Acute Assessment and Plan: see above (10) Rheumatoid arthritis: Code(s): M06.9 - Rheumatoid arthritis, unspecified Status: Acute Assessment and Plan: chronic history Time Spent with Patient Time attestation: Total time spent providing and/or coordinating discharge services: DS: Data Data Completed and Pending Labs on day of discharge: Labs from last 24 hours 04/25/24 04/24/24 05:36 18:04 WBC 3.9 L RBC 2.88 L Hgb 8.5 L Hct 25.7 L MCV 89.2 MCH 29.5 MCHC 33.1 RDW 16.2 H Plt Count 68 L MPV 10.8 H % Immature Plt Fraction 3.0 Sodium 130 L Potassium 3.5 Chloride 104 Carbon Dioxide 24 Anion Gap 2 L BUN 14 Creatinine 0.50 L Estim Creat Clear Calc 142 Estimated GFR > 60 Glucose 90 Calcium 8.6 NT-Pro-B Natriuret Pep 04422 H Blood Type A Positive Antibody Screen Negative Crossmatch See Detail Discharge Plan Discharge Attending physician on discharge: Annalee Wilkerson Consulting providers: Horacio Gandhi; Kaleb Tomlin; Inge Price Discharging Clinician: Annalee Wilkerson Anticipated Discharge Date/Time: 04/25/24 13:39 Patient Disposition: Home, Self-Care Activity: as tolerated Diet: as tolerated Patient Instructions: Antibiotic Form Patient Language: Kiswahili Stand Alone Forms: General Discharge Information Follow-up/Referrals: Kaleb Tomlin MD [Physician] - (F/u with oncology as instructed ) Inge Price APN-C [Advanced Practice Nurse] - (F/u with Cardiology as instructed ) Yaya Britt MD [Primary Care Provider] - (F/u with PCP in 3-5 days ) Discharge Medications: New amiodarone [Pacerone] 200 mg Tablet 400 mg PO DAILY@0800 30 Days Qty: 60 1RF Continued acyclovir 400 mg Tablet 400 mg PO BID ascorbic acid (vitamin C) 1,000 mg capsule 1 g PO DAILY cholecalciferol (vitamin D3) 25 mcg (1,000 unit) capsule 400 unit PO DAILY fluoxetine 20 mg capsule 20 mg PO DAILY Qty: 30 3RF Airsupra 90-80 mcg/actuation HFA aerosol inhaler 2 inh inhalation ONCE Qty: 5.9 3RF Rx Instructions: as a single dose; may repeat up to 6 doses per day (12 inhalations) metoprolol succinate 50 mg Tablet Extended Release 24 Hr 50 mg PO QAM Qty: 30 1RF spironolactone 25 mg Tablet 25 mg PO QAM Qty: 30 1RF sacubitril-valsartan [Entresto] 24-26 mg Tablet 1 tab PO Q12HR Qty: 60 1RF empagliflozin 10 mg tablet 10 mg PO DAILY Qty: 30 1RF ferrous sulfate 325 mg (65 mg iron) tablet,delayed release (DR/EC) 325 mg PO BID levothyroxine 75 mcg capsule 75 mcg PO DAILY 30 Days Qty: 30 0RF hydrocodone-acetaminophen 7.5-325 mg Tablet 1 tablet PO Q6H PRN (Reason: Pain) Qty: 10 0RF trazodone 50 mg tablet 50 mg PO QHS Qty: 30 0RF alprazolam 0.5 mg tablet 0.5 mg PO QHS PRN (Reason: Anxiety) Qty: 30 0RF Date of admission: 04/15/24 23:00 Primary Care Provider: Yaya Britt Admitting Provider: Homa Gaviria V. Attending physician on admission: Homa Gaviria V. Condition: Stable
--- NOTE | 2024-04-25 13:59 | PCNFU ---
Nutrition Follow-Up Complete: Increased protein energy needs related to sepsis, mechanical ventilation as evidenced by need for full tube feeding goal: Meet estimated protein energy needs Patient has limited progress towards goal. Pt current nutrition is Heart Healthy. Last recorded weight is 95 kg, down from 100 kg 04/24 Bowel Motility: +BM reported 04/24 Labs Reviewed:Cr 0.5, Na 130, Hct 25.7, Hgb 8.5 Skin: WNL Additional Notes: Spoke with nursing today. Discussions with hospitalist regarding discharging home with possible hospice vs palliative care. Discharge is the plan at this time. Patient oral intake has been very poor. Diet order had been advanced on 04/21 after MBS and no intake reported. If patient remains inpatient recommend addition of diet supplements TID. No further nutritional interventions needed at this time.
[2024-04-25] MEDS: POTASSIUM CHLORIDE 20 MEQ ER TABLET 40 MEQ PO (14:45)
== END 2024-04-25 16:15 | disposition home or self-care (01) | DRG 871 ==
LOC: ANHED 23:00 → ANHICU 23:20 → ANHIMU 04-25 13:40 → ANHICU 04-27 08:56
PROVIDERS: Emergency Medicine; Family Medicine; General Practice; Internal Medicine; Admitting Provider Internal Medicine; Emergency Provider Student in an Organized Health Care Education/Training Program; PCP Family Medicine; Visit Provider Internal Medicine
DX: A41.9 Sepsis, unspecified organism (principal); D61.810 Antineoplastic chemotherapy induced pancytopenia; J18.9 Pneumonia, unspecified organism; R65.21 Severe sepsis with septic shock; I50.23 Acute on chronic systolic (congestive) heart failure; J96.00 Acute respiratory failure, unspecified whether with hypoxia or hypercapnia; C92.A0 Acute myeloid leukemia with multilineage dysplasia, not having achieved remission; I48.0 Paroxysmal atrial fibrillation; M06.9 Rheumatoid arthritis, unspecified; E03.9 Hypothyroidism, unspecified; E61.1 Iron deficiency; Z51.5 Encounter for palliative care; Z87.891 Personal history of nicotine dependence; Z79.899 Other long term (current) drug therapy
CPT/HCPCS: 31500; 36415; 36430; 36569; 36600; 71045; 80048; 80053; 80202; 81001; 82375; 82805; 82948; 83050; 83605; 83690; 83735; 83880; 84100; 84132; 84145; 84478; 85014; 85018; 85025; 85027; 85055; 85610; 85730; 86140; 86850; 86900; 86901; 86923; 87040; 87636; 87637; 87641; 92610; 92611; 93005; 94002; 94003; 94640; 94667; 96365; 96366; 96367; 96375; 97162; 97165; 97530; 99285; A9270; C8929; J0282; J0613; J0692; J1940; J2003; J2250; J2270; J2371; J2470; J2704; J2997; J3010; J3370; J7040; J7050; J7060; J7070; J7120; P9016; Q5101; Q9957

== ENCOUNTER 2024-05-02 13:35 | Outpatient (CLI) | payer OTHER, SELFPAY ==
--- NOTE | ~2024-05-02 | XR_ITS ---
EXAMINATION: XR chest 2V Exam Date/Time: 05/02/2024 14:28 CLAIMS COORDINATOR HISTORY: SOB HX OF LEUKEMIA Comparison: 04/24/2024. RESULT: Lines, tubes, and devices: Left chest implanted port terminating in the distal SVC. Interval right P ICC removal. Lungs and pleura: Streaky bibasilar scar/atelectasis. Emphysematous change. Mild bilateral costophre anton angle blunting. Cardiomediastinal silhouette: Stable. Other: No acute osseous or upper abdominal finding. IMPRESSION: Likely streaky bibasilar atelectasis/scar, infection not excluded. Trace bilateral effusions versus c hronic blunting. Reviewed, dictated and finalized at location K. MS COORDINATOR IMPRESSION: Likely streaky bibasilar atelectasis/scar, infection not excluded. Trace bilate ral effusions versus chronic blunting.
== END 2024-05-02 13:36 | disposition home or self-care (01) ==
PROVIDERS: PCP Family Medicine; Visit Provider Internal Medicine Medical Oncology
DX: R06.02 Shortness of breath (principal); Z85.6 Personal history of leukemia
CPT/HCPCS: 71046

== ENCOUNTER 2024-05-23 08:37 | Outpatient (RCR) | payer MEDICARE, OTHER, SELFPAY ==
[2024-03-17 08:52] LABS: Basophils Percent Auto 1.1 % (0.2-1.2); Eosinophils Percent Auto 2.2 % (0-4.4); Hematocrit 22.2 % (42.0-52.0); Immature Granulocyte Absolute 0.02 K/mm3 (0.00-0.031); Immature Granulocyte Percent A 2.2 % (0-0.5); Lymphocytes Absolute Auto 0.59 K/mm3 (0.9-3.2); Lymphocytes Percent Auto 66.3 % (18.3-44.2); Mean Corpuscular HGB Conc 31.5 g/dl (32-36); Mean Corpuscular Hemoglobin 27.9 pg (26-34); Mean Corpuscular Volume 88.4 fl (80-100); Mean Platelet Volume 9.2 fl (7.4-10.4); Monocytes Absolute Auto 0.1 K/mm3 (0.1-0.6); Monocytes Percent Auto 6.7 % (2.6-8.5); Neutrophils Absolute Auto 0.2 K/mm3 (1.3-6.7); Neutrophils Percent Auto 21.5 % (45.5-73.1); Platelet Count Result 74 k/mm3 (150-375); Red Blood Count 2.51 M/mm3 (4.6-6.20); Red Cell Distribution Width 19.4 % (11.5-14.5)
[2024-03-17 09:02] LABS: White Blood Count 0.9 K/mm3 (4.5-10.0)
[2024-03-17 09:03] LABS: Anisocytosis 2+; Microcytosis 2+ (NORMAL); Platelet Estimate Decreased (Adequate); Schistocytes None Seen
[2024-03-20 11:45] LABS: Immature Granulocyte Absolute 0.02 K/mm3 (0.00-0.031); Immature Granulocyte Percent A 2.1 % (0-0.5); Immature Platelet Fraction Pct 3.2 % (0.9-11.2); Lymphocytes Absolute Auto 0.65 K/mm3 (0.9-3.2); Mean Corpuscular HGB Conc 31.7 g/dl (32-36); Mean Corpuscular Hemoglobin 27.9 pg (26-34); Mean Corpuscular Volume 88.2 fl (80-100); Mean Platelet Volume 9.8 fl (7.4-10.4); Monocytes Absolute Auto 0.1 K/mm3 (0.1-0.6); Monocytes Percent Auto 5.2 % (2.6-8.5); Neutrophils Absolute Auto 0.2 K/mm3 (1.3-6.7); Neutrophils Percent Auto 23.7 % (45.5-73.1); Platelet Count Result 49 k/mm3 (150-375); Red Blood Count 2.29 M/mm3 (4.6-6.20); Red Cell Distribution Width 19.8 % (11.5-14.5)
[2024-03-20 11:47] LABS: Hemoglobin 6.4 g/dL (14.0-18.0)
[2024-03-20 11:47] LABS: Blood Urea Nitrogen 12 mg/dL (8-26); Carbon Dioxide 22 mmol/L (22-30); Chloride 100 mmol/L (98-109); Estimated Glomerular Filt Rate > 60; Glucose 123 mg/dL (70-105); Ionized Calcium (POC) 1.23 mmol/L (1.11-1.31); Potassium 3.9 mmol/L (3.5-4.9); Sodium 134 mmol/L (138-146)
[2024-03-20 11:48] LABS: Hematocrit 20.2 % (42.0-52.0)
[2024-03-20 12:02] VITALS: BP 96/51; PULSE 72; TEMP 36.4; O2SAT 100
[2024-03-20] MEDS: dexAMETHasone SOD 4 MG/ML INJ 12 MG in SODIUM CHLORIDE 0.9% IV 100 ML 206 MG IVPB (12:19)
[2024-03-20] MEDS: ONDANSETRON INJ 4 MG/2 ML VIAL 8 MG IV PUSH (12:19)
[2024-03-20] MEDS: DECITABINE IVPB (13:07)
[2024-03-20] MEDS: SODIUM CHLORIDE 0.9% IVPB (13:07)
[2024-03-20 14:08] LABS: Alanine Aminotransferase 10 U/L (6-50); Albumin Level 3.4 g/dL (3.5-5.1); Alkaline Phosphatase 102 U/L (38-126); Anion Gap 9 mmol/L (4-12); Aspartate Amino Transferase 20 U/L (17-59); Bilirubin,Total 0.5 mg/dL (0.2-1.3); Blood Urea Nitrogen 14 mg/dL (9-20); Calcium 8.9 mg/dL (8.4-10.2); Carbon Dioxide 22 mmol/L (22-30); Chloride 102 mmol/L (98-107); Estimated Glomerular Filt Rate > 60; Glucose 125 mg/dL (65-110); Sodium 133 mmol/L (137-145)
[2024-03-20 14:13] VITALS: BP 92/49
[2024-03-21 08:41] VITALS: BP 93/49; PULSE 69; TEMP 36.3; O2SAT 100
[2024-03-21] MEDS: ONDANSETRON INJ 4 MG/2 ML VIAL 8 MG IV PUSH (08:59)
[2024-03-21] MEDS: DECITABINE IVPB (09:42)
[2024-03-21] MEDS: SODIUM CHLORIDE 0.9% IVPB (09:42)
[2024-03-21] MEDS: HEPARIN SODIUM LOCK FLUSH 500 UNITS/5 ML SYRINGE IV PUSH (10:52)
[2024-03-22 13:25] VITALS: BP 95/49; PULSE 63; TEMP 36.4; O2SAT 100
[2024-03-22] MEDS: ONDANSETRON INJ 4 MG/2 ML VIAL 8 MG IV PUSH (13:53)
[2024-03-22] MEDS: dexAMETHasone SOD 4 MG/ML INJ 12 MG in SODIUM CHLORIDE 0.9% IV 100 ML 206 MG IVPB (13:54)
[2024-03-22] MEDS: SODIUM CHLORIDE 0.9% IVPB (14:39)
[2024-03-22] MEDS: DECITABINE IVPB (14:39)
[2024-03-22] MEDS: HEPARIN SODIUM LOCK FLUSH 500 UNITS/5 ML SYRINGE IV PUSH (15:46)
[2024-03-23 13:35] VITALS: BP 98/40; PULSE 61; TEMP 36.6; O2SAT 100
[2024-03-23] MEDS: ONDANSETRON INJ 4 MG/2 ML VIAL 8 MG IV PUSH (13:46)
[2024-03-23] MEDS: DECITABINE IVPB (14:24)
[2024-03-23] MEDS: SODIUM CHLORIDE 0.9% IVPB (14:24)
[2024-03-23 15:24] VITALS: BP 103/54
[2024-03-23] MEDS: HEPARIN SODIUM LOCK FLUSH 500 UNITS/5 ML SYRINGE IV PUSH (15:28)
[2024-03-24 10:19] VITALS: BP 92/46; PULSE 49; TEMP 36.7; O2SAT 100
[2024-03-24] MEDS: ONDANSETRON INJ 4 MG/2 ML VIAL 8 MG IV PUSH (10:31)
[2024-03-24] MEDS: dexAMETHasone SOD 4 MG/ML INJ 12 MG in SODIUM CHLORIDE 0.9% IV 100 ML 206 MG IVPB (10:36)
[2024-03-24] MEDS: DECITABINE IVPB (11:21)
[2024-03-24] MEDS: SODIUM CHLORIDE 0.9% IVPB (11:21)
[2024-03-24] MEDS: HEPARIN SODIUM LOCK FLUSH 500 UNITS/5 ML SYRINGE IV PUSH (12:22)
[2024-03-24 12:23] VITALS: BP 105/47
[2024-04-03 10:38] LABS: Basophils Percent Auto 1.4 % (0.2-1.2); Eosinophils Percent Auto 1.4 % (0-4.4); Immature Granulocyte Absolute 0.01 K/mm3 (0.00-0.031); Immature Granulocyte Percent A 1.4 % (0-0.5); Immature Platelet Fraction Pct 5.6 % (0.9-11.2); Lymphocytes Absolute Auto 0.59 K/mm3 (0.9-3.2); Lymphocytes Percent Auto 83.1 % (18.3-44.2); Mean Corpuscular HGB Conc 32.5 g/dl (32-36); Mean Corpuscular Hemoglobin 28.7 pg (26-34); Mean Corpuscular Volume 88.4 fl (80-100); Monocytes Percent Auto 4.2 % (2.6-8.5); Neutrophils Absolute Auto 0.1 K/mm3 (1.3-6.7); Neutrophils Percent Auto 8.5 % (45.5-73.1); Red Blood Count 2.16 M/mm3 (4.6-6.20); Red Cell Distribution Width 18.1 % (11.5-14.5)
[2024-04-03 10:39] LABS: Hemoglobin 6.2 g/dL (14.0-18.0); White Blood Count 0.7 K/mm3 (4.5-10.0)
[2024-04-03 10:40] LABS: Hematocrit 19.1 % (42.0-52.0); Platelet Count Result 7 k/mm3 (150-375)
[2024-04-10 09:21] LABS: Basophils Percent Auto 1.9 % (0.2-1.2); Lymphocytes Absolute Auto 0.33 K/mm3 (0.9-3.2); Lymphocytes Percent Auto 63.5 % (18.3-44.2); Mean Corpuscular Hemoglobin 29.4 pg (26-34); Mean Corpuscular Volume 86.5 fl (80-100); Monocytes Percent Auto 3.8 % (2.6-8.5); Neutrophils Absolute Auto 0.2 K/mm3 (1.3-6.7); Neutrophils Percent Auto 30.8 % (45.5-73.1); Red Cell Distribution Width 18.3 % (11.5-14.5)
[2024-04-10 09:22] LABS: White Blood Count 0.5 K/mm3 (4.5-10.0)
[2024-04-10 09:23] LABS: Hematocrit 14.7 % (42.0-52.0); Platelet Count Result 19 k/mm3 (150-375)
[2024-04-10 13:29] LABS: Alanine Aminotransferase 14 U/L (6-50); Albumin Level 3.2 g/dL (3.5-5.1); Alkaline Phosphatase 93 U/L (38-126); Anion Gap 10 mmol/L (4-12); Aspartate Amino Transferase 20 U/L (17-59); Bilirubin,Total 1.2 mg/dL (0.2-1.3); Blood Urea Nitrogen 20 mg/dL (9-20); Calcium 8.4 mg/dL (8.4-10.2); Carbon Dioxide 20 mmol/L (22-30); Chloride 99 mmol/L (98-107); Estimated Glomerular Filt Rate > 60; Glucose 123 mg/dL (65-110); Potassium 3.9 mmol/L (3.4-5.0); Sodium 129 mmol/L (137-145)
[2024-05-02 10:56] LABS: Hematocrit 28.9 % (42.0-52.0); Hemoglobin 9.5 g/dL (14.0-18.0); Immature Platelet Fraction Pct 3.6 % (0.9-11.2); Mean Corpuscular HGB Conc 32.9 g/dl (32-36); Mean Corpuscular Hemoglobin 29.1 pg (26-34); Mean Corpuscular Volume 88.7 fl (80-100); Mean Platelet Volume 9.1 fl (7.4-10.4); Platelet Count Result 64 k/mm3 (150-375); Red Blood Count 3.26 M/mm3 (4.6-6.20); Red Cell Distribution Width 15.9 % (11.5-14.5)
[2024-05-02 10:57] LABS: White Blood Count 1.8 K/mm3 (4.5-10.0)
[2024-05-02 11:00] LABS: Blood Urea Nitrogen 9 mg/dL (8-26); Carbon Dioxide 23 mmol/L (22-30); Chloride 100 mmol/L (98-109); Estimated Glomerular Filt Rate > 60; Glucose 97 mg/dL (70-105); Potassium 3.8 mmol/L (3.5-4.9); Sodium 135 mmol/L (138-146)
[2024-05-02 11:04] LABS: Anisocytosis 1+; Band Neutrophils Percent 16 % (0-6); Microcytosis 1+ (NORMAL); Monocytes Absolute Manual 0.07 K/mm3 (0.1-0.90); Monocytes Percent Manual 4 % (3-9); Neutrophils Absolute Manual 0.82 K/mm3 (1.3-6.7); Neutrophils Percent Manual 30 % (46-73); Platelet Estimate Decreased (Adequate); Schistocytes None Seen; Total Cells Counted 50
[2024-05-02 15:12] LABS: Alanine Aminotransferase 16 U/L (6-50); Albumin Level 3.4 g/dL (3.5-5.1); Alkaline Phosphatase 87 U/L (38-126); Anion Gap 6 mmol/L (4-12); Aspartate Amino Transferase 25 U/L (17-59); Blood Urea Nitrogen 12 mg/dL (9-20); Calcium 9.1 mg/dL (8.4-10.2); Carbon Dioxide 23 mmol/L (22-30); Chloride 104 mmol/L (98-107); Estimated Glomerular Filt Rate > 60; Glucose 97 mg/dL (65-110); Potassium 3.9 mmol/L (3.4-5.0); Sodium 133 mmol/L (137-145)
[2024-05-23 09:00] LABS: Blood Urea Nitrogen 38 mg/dL (8-26); Carbon Dioxide 22 mmol/L (22-30); Chloride 93 mmol/L (98-109); Estimated Glomerular Filt Rate > 60; Glucose 121 mg/dL (70-105); Ionized Calcium (POC) 1.34 mmol/L (1.11-1.31); Sodium 129 mmol/L (138-146)
[2024-05-23 09:02] LABS: Basophils Percent Auto 0.7 % (0.2-1.2); Immature Granulocyte Absolute 0.08 K/mm3 (0.00-0.031); Immature Granulocyte Percent A 5.8 % (0-0.5); Immature Platelet Fraction Pct 6.3 % (0.9-11.2); Lymphocytes Absolute Auto 0.68 K/mm3 (0.9-3.2); Lymphocytes Percent Auto 48.9 % (18.3-44.2); Mean Corpuscular HGB Conc 33.5 g/dl (32-36); Mean Corpuscular Volume 86.4 fl (80-100); Mean Platelet Volume 9.7 fl (7.4-10.4); Monocytes Absolute Auto 0.1 K/mm3 (0.1-0.6); Monocytes Percent Auto 7.2 % (2.6-8.5); Neutrophils Absolute Auto 0.5 K/mm3 (1.3-6.7); Neutrophils Percent Auto 37.4 % (45.5-73.1); Platelet Count Result 28 k/mm3 (150-375); Red Blood Count 2.21 M/mm3 (4.6-6.20); Red Cell Distribution Width 17.4 % (11.5-14.5)
[2024-05-23 09:03] LABS: Hematocrit 19.1 % (42.0-52.0); Hemoglobin 6.4 g/dL (14.0-18.0); White Blood Count 1.4 K/mm3 (4.5-10.0)
== END 2024-05-25 08:42 ==
LOC: AMCINF 08:37
PROVIDERS: Visit Provider Internal Medicine Hematology & Oncology
DX: D46.Z Other myelodysplastic syndromes (principal); I10 Essential (primary) hypertension; I48.91 Unspecified atrial fibrillation; I49.9 Cardiac arrhythmia, unspecified; J44.9 Chronic obstructive pulmonary disease, unspecified; G47.30 Sleep apnea, unspecified; K52.9 Noninfective gastroenteritis and colitis, unspecified; M06.9 Rheumatoid arthritis, unspecified; F32.A Depression, unspecified; Z87.891 Personal history of nicotine dependence
CPT/HCPCS: 36415; 80047; 80053; 85025; 85055; 96367; 96375; 96413; 99212; G0463; J0894; J1100; J2405